=== PATIENT | male | born 1950 | race Caucasian/White ===

== ENCOUNTER 2019-07-14 13:00 | Outpatient (RCR) | payer MEDICARE, SELFPAY ==
--- NOTE | 2019-06-18 12:54 | HP.OTEVAL ---
Patient's Visit Information ANYA ST is a 69 year old M, referred to Occupational Therapy by Jarret Hinds MD, with a diagnosis of left MF trigger finger release. Date of Evaluation: 05/28/19 Occupational Therapist: Larissa Rivero, JOSE LUIS/Dilcia, CHT - Subjective Subjective: This 68 year old male was seen for OT left TF release Apr.16. pt struggled with left MF triggering for about a year. pt states he continues to struggle with limited ROM and pain. Pt would like to return to PLOF. 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 Pt will demo an increase in lateral and tripod pinch by 2# to increase pts independent with opening baggies, containers at PLOF by D/C. Goal:: Pt will demo the ability to form a composite fist to hold and receive 10 coins without dropping coins/ and coin manipulation/money mtg. tasks and ind. With manipulating fasteners for dressing by D/C. Pt will demo the ability to form a composite fist to return to performing BADLs and IADLS at PLOF by d/c. Goal:: Pt will report pain no greater than 1/10 with use of affected hand with BADLs and IADLs by d/c. Goal:: Pt will demo understanding of scar mtg. by end of 2nd session to increase tissue extensibility to limit scar adhesions and allow full tendons function by d/c. - Rehabilitation General Assessment: pt demo with limted ROM and pain around incision following a trigger finger release. this is limiting pts ind. with ADLs and IADLS. pt demo difficulty with functional fist for ADLS. pt would benefit from skilled OT services 1-2 x week for 4 weeks to return pt to PLOF. Today pt ed. on tendon glide, scar mtg, desensitization. pt given handout on HEP and agree to POC. Rehabilitation Potential: Good - Anticipated Interventions Anticipated Interventions: A/AAROM/PROM, Strengthening, Edema Control, Scar Care, Triggerpoint Release, Desensitization, Modalities, Orthoses, Joint Protection/Energy Conservation - Visit Plan Frequency: 2x /Week Duration: 4 Weeks TEXT: Thank you for the opportunity to evaluate your patient. For Medicare and Medicare HMO plans, please review the plan of care and approve it. It will need to be FAXED BACK to us at [phone] for Medicare purposes. Please let me know if there are questions or concerns regarding this plan of care. Physician Signature: Date:
--- NOTE | 2019-11-06 16:54 | HP.OT.NRP ---
ANYA ST was seen in my office for initial evaluation on 05/28/19. The following Plan of Care was established for this patient: Initial Frequency: 2x /Week Initial Duration: 4 Weeks Plan: pt return in 2 weeks Anticipated Interventions: A/AAROM/PROM, Strengthening, Edema Control, Scar Care, Triggerpoint Release, Desensitization, Modalities, Orthoses, Joint Protection/Energy Conservation This patient was last seen in our office 07/14/19. Pertinent comments regarding their Occupational therapy will appear below: pt seen for 6 OT session and continued to struggle with trigger finger. pt was advised to return to for further eval. pt to cont. with HEP to limit triggering. pt has not returned or scheduled further apts and is d/c at this time. At this point I will be discontinuing this patient from occupational therapy. I would be happy to see this patient again in the future if found appropriate by the physician. Thank you! Larissa Rivero, OTR/L, CHT
== END 2019-07-14 19:00 | disposition home or self-care (01) ==
LOC: OT 13:00
PROVIDERS: Family Provider Preventive Medicine Occupational Medicine; PCP Preventive Medicine Occupational Medicine; Referring Provider Orthopaedic Surgery; Visit Provider Orthopaedic Surgery
DX: M65.332 Trigger finger, left middle finger (principal); M79.645 Pain in left finger(s); M25.642 Stiffness of left hand, not elsewhere classified
CPT/HCPCS: 97035; 97110; 97140; 97166; 97530; 97760

== ENCOUNTER 2019-07-26 15:11 | Emergency (ER) | payer MEDICARE, SELFPAY ==
[2019-07-26 15:12] VITALS: BP 113/71; PULSE 59; RESP 17; TEMP 36.9; O2SAT 97; BMI 32.4
--- NOTE | 2019-07-26 15:32 | EKG12_ITS ---
Test Reason : CP Blood Pressure : / mmHG Vent. Rate : 058 BPM Atrial Rate : 058 BPM P-R Int : 176 ms QRS Dur : 114 ms QT Int : 432 ms P-R-T Axes : 063 -52 -35 degrees QTc Int : 424 ms Sinus bradycardia Left anterior fascicular block Nonspecific ST and T wave abnormality Abnormal ECG Confirmed by BEATRICE BRICEÑO ([id number]), editorial specialist GARLAND DE OLIVEIRA ([id number]) on 07/31/2019 9:20:08 AM Referred By: Confirmed By:BEATRICE BRICEÑO
--- NOTE | 2019-07-26 15:35 | RAD_ITS ---
STUDY: X-RAY CHEST REASON FOR EXAM: Male, 69 years old. chest pain. hx of afib TECHNIQUE: AP COMPARISON: None. FINDINGS: EKG leads project over the chest. The lungs are clear and expanded. There is no demonstrated pleural abnormality. There is mild cardiac enlargement. Normal mediastinum and ector. Normal visualized pulmonary arteries. There is atherosclerotic tortuosity of the aortic arch and descending thoracic aorta. Normal visualized thoracic spine. Fusion hardware of the proximal left humerus partially visualized. There is no demonstrated abnormality of the visualized soft tissue structures of the upper abdomen. RAD/Chest 1 View (Portable) IMPRESSION: 1. Nonacute portable x-ray examination of the chest. Electronically Signed: Francisco Javier Vickers MD (Bro[place]) at 15:48 EDT , Service support ,
--- NOTE | 2019-07-26 15:38 | NURSING ---
NO OLD EKGS
--- NOTE | 2019-07-26 15:40 | ED.VISSUMM ---
- ER Visit Summary Date of Service: 07/26/19 Chief Complaint: Chest pain History of Present Illness: The patient is a 69 M presenting with chest pain. This started approximately 2 hours prior to arrival. He has had 2 intermittent episodes of left-sided chest pain. He states the first episode lasted about 30 minutes and then resolved. He was unsure if he wanted to come to the hospital and then had another episode of chest pain. He denies shortness of breath, nausea, vomiting, diaphoresis. He has a history of hypertension, hypercholesteremia, A. fib on Coumadin. He is not a smoker. Physical Examination: Vitals are stable. Patient is afebrile. Alert no acute distress. HEENT exam is unremarkable. Neck is supple. Lungs are clear and equal bilaterally. Heart is regular rate and rhythm. Abdomen is soft nontender nondistended. Extremities are unremarkable. Skin is warm and dry. No focal neurologic deficit. Remainder of exam is unremarkable. Emergency Department Course and Treatment: Patient was given aspirin on arrival. EKG is sinus bradycardia rate of 58. Chest x-ray shows no acute process. CBC, chemistries unremarkable other than BUN 23, creatinine 1.47. INR 1.9. Troponin is negative. Patient believes he may have had a stress test within the last 6 to 9 months. I am unable to find these records in [facility]. He is unsure where this test was performed. I advised admission for further cardiac work-up and stress testing. Patient declines admission. He declines delta troponin. He will follow-up with his doctor. He is advised the risks of leaving against medical advice and understands these risks and will return if he has worsening symptoms. He signed out AGAINST MEDICAL ADVICE. Disposition: AGAINST MEDICAL ADVICE Impression: Chest pain This note was generated with [employer] dictation software. It may contain incorrect words, spelling, and punctuation that were not noted in review of the chart prior to signing ED Disposition - Plan for ED Patient: Instructions: CHEST PAIN, Uncertain Cause Referrals: Dre Coles DO [Primary Care Provider] -
[2019-07-26 15:46] LABS: Absolute Lymphocyte Count 1.29 X10^3/uL (0.83-4.51); Absolute Neutrophil Count 4.2 X10^3/uL (2.0-7.7); Basophil# 0.02 X10^3/uL; Basophil% 0.3 % (0-1); Eosinophil# 0.07 X10^3/uL; Eosinophils% 1.1 % (0-5); Hematocrit 39.9 % (40-54); Hemoglobin 13.6 g/dL (13.0-16.5); Lymphocyte # 1.29 X10^3/ul (4.0); Lymphocyte % 20.9 % (19-41); Mean Corp Hgb Conc 34.1 g/dL (32-36); Mean Corpuscular Hgb 33.7 pg (27.0-32.0); Monocyte# 0.57 X10^3/uL; Monocyte% 9.2 % (0-10); NRBC Flagged by Analyzer 0 % (0-5); Neutrophil # 4.18 X10^3/uL (2.7-7.7); Neutrophil % 67.9 % (47-70); Platelet Count 201 K/mm3 (150-450); RBC Distribution Width CV 13.1 % (11.6-14.6); RBC Distribution Width SD 46.6 fl (35.1-43.9); Red Blood Count 4.03 M/mm3 (4.6-6.2); White Blood Count 6.2 K/mm3 (4.4-11.0)
[2019-07-26 15:52] VITALS: BP 101/80; PULSE 59; RESP 14; O2SAT 96
[2019-07-26] MEDS: Aspirin 81 MG TAB.CHEW 324 MG PO (15:52)
[2019-07-26 16:05] LABS: Anion Gap 6 (5-15); BUN 23 mg/dL (7-18); BUN/Creat Ratio 15.6 RATIO (10-20); Calcium,Total 8.9 mg/dL (8.5-10.1); Chloride 103 mmol/L (98-107); Creatinine, Serum 1.47 mg/dL (0.70-1.30); EST Glomerular Filtration Rate 50 mL/min (>60); Est Glom Filt Rate - Afr Amer 61 mL/min (>60); Estimated Creatinine Clearance 51.32 ml/min; Glucose 113 mg/dL (74-106); Potassium 3.9 mmol/L (3.5-5.1); Sodium Level 140 mmol/L (136-145)
[2019-07-26 16:12] LABS: International Normalized Ratio 1.9; Prothrombin Time (Protime)PT. 21.6 SECONDS (11.7-14.9)
--- NOTE | 2019-07-26 17:05 | ED.DEP ---
ED Disposition - Plan for ED Patient: Instructions: CHEST PAIN, Uncertain Cause Referrals: Dre Coles DO [Primary Care Provider] -
[2019-07-26 17:24] VITALS: BP 115/72; PULSE 53; RESP 15; O2SAT 95
== END 2019-07-26 17:25 | disposition left against medical advice (07) ==
LOC: ED 16:21
PROVIDERS: Emergency Provider Emergency Medicine; PCP Preventive Medicine Occupational Medicine
DX: R07.9 Chest pain, unspecified (principal); Z79.01 Long term (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 anticoagulants; I10 Essential (primary) hypertension; I48.91 Unspecified atrial fibrillation
CPT/HCPCS: 71045; 80048; 84484; 85025; 85610; 93005; 99283; A4216

== ENCOUNTER → 2019-09-19 09:40 | Outpatient (CLI) | payer MEDICARE, SELFPAY ==
--- NOTE | 2019-09-19 09:46 | NM_ITS ---
CLINICAL: 69-year-old male with reported history of carcinoma of the prostate. WHOLE BODY 99m Tc MDP RADIONUCLIDE BONE SCINTIGRAPHY COMPARISON: None available FINDINGS: Following the intravenous administration of 26.4 mCi of 99m Tc MDP, whole body bone images reveal: 1. Increased radiopharmaceutical concentration is identified in the right posterior lateral 11th rib. 2. Enhanced tracer concentration is observed in the mid cervical spine posteriorly on the left, fourth-fifth lumbar vertebra posteriorly on the left and right, right posterior sacrum, acromioclavicular compartment of the right shoulder, sternoclavicular compartment of the left shoulder, the right knee, the right hip involving the superior acetabulum. 3. The remaining skeletal structures are scintigraphically unremarkable with normal-appearing renal images and urinary bladder activity identified. Prominent uptake is noted at the sternomanubrial synchondrosis most consistent with a normal variant. NM/Bone Scan Whole Body IMPRESSION: 1. The increase in radiopharmaceutical concentration identified in the right posterior lateral 11th rib is most consistent with trauma-fracture. Plain film radiography correlation may be of benefit in this setting of known prostate carcinoma. 2. Degenerative arthritis appears expressed in the cervical and lumbar spine, sacrum, bilateral shoulders, the right knee and right hip. 3. There is no definitive typical scintigraphic evidence of diffuse axial skeletal metastatic disease on the current examination. Electronically Signed: Mark Miller DO at 9:17 EDT Tel , Service support ,
== END ==
LOC: CT 09:41 → NM 09:45
PROVIDERS: PCP Preventive Medicine Occupational Medicine; Referring Provider Urology; Visit Provider Urology
DX: C61 Malignant neoplasm of prostate (principal)
CPT/HCPCS: 78306

== ENCOUNTER → 2019-09-23 06:48 | Outpatient (CLI) | payer MEDICARE, SELFPAY ==
--- NOTE | 2019-09-23 06:57 | CT_ITS ---
STUDY: CT ABDOMEN AND PELVIS WITH CONTRAST REASON FOR EXAM: Male, 69 years old. MALIGNANT NEOPLASM FOLLOW UP -- FREQUENT URINATION,RADIATION COLITIS -- HX- PROSTATE CA W/ RADIATION, BLADDER CA W/ SURG -- SURG-APPY,HERNIA,HEMORRHOIDS,STOMACH D/T REFLUX, BLADDER TUMOR REMOVED RADIATION DOSAGE (If Supplied By Facility): CTDIvol = ( 19.77 ) mGy, DLP = ( 1234.43 ) mGycm TECHNIQUE: Transaxial images were obtained from the dome of the diaphragm to the symphysis pubis with oral contrast. Oral and amp;amp;amp; IV Readi-CAT and amp;amp;amp; 100mL Isovue-300 was administered. Sagittal and coronal images were reconstructed. Individualized dose optimization techniques were used for this CT. COMPARISON: Comparison is made with prior examination of January 28, 2007. FINDINGS: Minimal increased linear markings at the left lung base suggestive of linear scarring. This is unchanged. The visualized portions of the heart are within normal limits. There is decreased attenuation of the liver consistent with steatosis. Mild hepatomegaly. Normal gallbladder and extrahepatic biliary system. Normal spleen. Normal pancreas. Normal bilateral adrenal glands. Normal right kidney. 1 cm cyst in the posterior aspect of the left kidney. There is a small hiatal hernia. Normal small intestine. There are scattered colonic diverticula consistent with diverticulosis. The patient is status post appendectomy. There is scattered atherosclerotic calcification of the abdominal aorta, without a demonstrated aneurysm. Normal inferior vena cava. Normal retroperitoneum. Normal urinary bladder. The patient is status post prostatectomy. Normal abdominal wall. Disc space narrowing and degeneration at the L4-L5 and L5-S1 levels. Straightening of the normal lumbar lordosis. CT/Abdomen/Pelvis WITH Contrast IMPRESSION: Mild hepatomegaly with fatty infiltration of the liver. Status post prostatectomy. Electronically Signed: Nishant Medina, at 8:20 EDT , Service support ,
[2019-09-23 10:31] LABS: CREATININE FINGERSTICK 0.8 mg/dL (0.70-1.30); EGFR FINGERSTICK > 60.0000 mL/min (>60)
== END ==
PROVIDERS: PCP Preventive Medicine Occupational Medicine; Referring Provider Urology; Visit Provider Urology
DX: C61 Malignant neoplasm of prostate (principal)
CPT/HCPCS: 74177; Q9967

== ENCOUNTER → 2020-03-30 13:24 | Outpatient (CLI) | payer MEDICARE, SELFPAY | PROVIDERS: PCP Preventive Medicine Occupational Medicine; Referring Provider Urology; Visit Provider Urology | DX: C61 Malignant neoplasm of prostate (principal) | CPT/HCPCS: 36415; 84153 ==

== ENCOUNTER → 2020-04-20 14:02 | Outpatient (CLI) | payer MEDICARE, SELFPAY ==
--- NOTE | 2020-04-20 14:00 | PET_ITS ---
EXAMINATION: 18F Fluciclovine PET/CT CLINICAL HISTORY: A 69-year-old male with reported history of carcinoma of the prostate presenting for restaging examination. COMPARISON EXAMINATION: CT of the abdomen and pelvis report dated 09/23/2019, whole body bone scintigraphy report dated 09/19/2019 PROCEDURE: The patient received an intravenous bolus injection of 11.02 mCi of Axumin (fluciclovine F-18) via the right hand, on the imaging table with the patient in the supine position followed by an intravenous normal saline flush. The patient in the supine position with arms above the head, CT scan for attenuation correction was performed immediately following the bolus injection and left up for 1-2 minutes. The PET scan acquisition was begun within 3-5 minutes following injection from mid thigh to the base of the skull. The total scan time was registered between 20-30 minutes. Axumin (fluciclovine F-18) injection is indicated for positron emission tomography PET imaging in men with suspected prostate cancer recurrence based on elevation of the serum prostatic surface antigen (PSA) levels following prior treatment intervention. HEIGHT: 72 inches. WEIGHT: 230 lbs. REFERENCE SUVs: LIVER BLOOD POOL SUV: 9.3 BLOOD POOL: 1.4 BONE MARROW: 2.6 FINDINGS: Head/Neck: There is no evidence of abnormal increased metabolism in the pharyngeal mucosal space, parapharyngeal space, bilateral-lateral and anterior neck, hypopharynx and distribution of the laryngeal structures. There is uniform distribution of the radiopharmaceutical concentration defined in the visualized cerebellar hemispheres and cerebral cortical structures.? CHEST: There is no quantitative scintigraphic evidence of abnormal increased metabolism within the context of the bilateral hemithorax pulmonary parenchyma, right and left hemithoracic pleural interface, mediastinal structures and thoracic perihilum. No definitive abnormal increased metabolism is noted on review of three axis reconstructions on meticulous inspection of the chest. Normal mediastinal and cardiac blood pool distribution of the radiopharmaceutical is defined. Pertinent chest CT findings are as follows. Coronary arterial calcification is observed. Calcification is noted in the thoracic aorta. The maximal axial diameter of the ascending thoracic aorta is 44.9-mm. Bilateral axillary soft tissue densities with fatty hilus demonstrate no evidence of increased tracer uptake. Scattered mediastinal soft tissue is non-fluciclovine avid. There are no parenchymal densities-nodules defined in the right and left hemithorax with discernible increased FDG concentration. Abdomen/Pelvis: Subtle increased radiopharmaceutical concentration appears evident in the lower midline perineum generating a calculated maximal standard uptake value of 2.8 essentially equivalent to bone marrow and less than liver reference. Normal physiologic distribution of the radiopharmaceutical is apparent in the hepatic and splenic parenchyma, pancreas, pancreatic head-tail, both renal units, bladder and visualized intestinal tract. Pertinent abdomen and pelvis CT findings are as follows. There is atherosclerotic calcification defined in the abdominal aorta without evidence of dilatation-aneurysm formation. Pelvic arterial calcification is observed. The prostate gland appears surgically absent. Right and left inguinal soft tissue densities with fatty hilus are ametabolic. Skeletal: Degenerative changes are noted in the cervical, thoracic and lumbar spine. PET/PET/CT Tumor Base -Thigh Init IMPRESSION: 1. NEGATIVE EXAMINATION. There is no definitive quantitative scintigraphic evidence of 18-F Fluciclovine avid viable neoplasm. 2. Enhanced tracer uptake observed in the lower midline perineum likely represents pooling of labeled urine radiopharmaceutical within the proximal urethra. Electronic Signature Mark Miller D.O. Electronically Signed: Mark Miller DO at 9:58 EST Tel , Service support ,
== END ==
PROVIDERS: PCP Preventive Medicine Occupational Medicine; Referring Provider Urology; Visit Provider Urology
DX: C61 Malignant neoplasm of prostate (principal)
CPT/HCPCS: 78815; A9552; A9588

== ENCOUNTER → 2020-07-29 14:57 | Outpatient (CLI) | payer MEDICARE, SELFPAY | PROVIDERS: PCP Preventive Medicine Occupational Medicine; Visit Provider Urology | DX: C61 Malignant neoplasm of prostate (principal) | CPT/HCPCS: 36415; 84153 ==

== ENCOUNTER → 2020-09-22 14:41 | Outpatient (CLI) | payer MEDICARE, SELFPAY | PROVIDERS: PCP Preventive Medicine Occupational Medicine; Referring Provider Urology; Visit Provider Urology | DX: C61 Malignant neoplasm of prostate (principal) | CPT/HCPCS: 36415; 84153 ==

== ENCOUNTER → 2020-11-10 11:51 | Outpatient (CLI) | payer MEDICARE, SELFPAY ==
[2020-11-10 13:05] LABS: PSA,Total- Diagnostic 3.02 ng/mL (0.0-4.0)
== END ==
PROVIDERS: PCP Preventive Medicine Occupational Medicine; Referring Provider Urology; Visit Provider Urology
DX: C61 Malignant neoplasm of prostate (principal)
CPT/HCPCS: 36415; 84153

== ENCOUNTER → 2021-02-16 12:43 | Outpatient (CLI) | payer MEDICARE, SELFPAY ==
[2021-02-16 14:04] LABS: PSA,Total- Diagnostic 0.53 ng/mL (0.0-4.0)
== END ==
PROVIDERS: PCP Preventive Medicine Occupational Medicine; Referring Provider Urology; Visit Provider Urology
DX: C61 Malignant neoplasm of prostate (principal)
CPT/HCPCS: 36415; 84153

== ENCOUNTER 2021-07-04 13:32 | Outpatient (CLI) | payer MEDICARE, SELFPAY ==
[2021-07-04 15:29] LABS: PSA,Total- Diagnostic 0.11 ng/mL (0.0-4.0)
== END 2021-07-04 23:59 | disposition home or self-care (01) ==
LOC: LAB 13:34
PROVIDERS: PCP Preventive Medicine Occupational Medicine; Visit Provider Urology
DX: C61 Malignant neoplasm of prostate (principal)
CPT/HCPCS: 36415; 84153

== ENCOUNTER 2021-07-25 13:10 | Outpatient (CLI) | payer MEDICARE, SELFPAY ==
[2021-07-25 13:21] LABS: INR Fingerstick 1.8
== END 2021-07-25 23:59 | disposition home or self-care (01) ==
LOC: LAB 13:13
PROVIDERS: PCP Preventive Medicine Occupational Medicine; Visit Provider Student in an Organized Health Care Education/Training Program
DX: Z01.812 Encounter for preprocedural laboratory examination (principal)
CPT/HCPCS: 36416; 85610

== ENCOUNTER → 2022-01-04 | Outpatient (CLI) | payer MEDICARE, SELFPAY | END | disposition home or self-care (01) | LOC: LAB 10:52 | PROVIDERS: PCP Preventive Medicine Occupational Medicine; Visit Provider Urology | DX: C61 Malignant neoplasm of prostate (principal) | CPT/HCPCS: 36415; 84153 ==

== ENCOUNTER → 2022-04-24 | Outpatient (CLI) | payer MEDICARE, SELFPAY | END | disposition home or self-care (01) | LOC: LAB 11:48 | PROVIDERS: PCP Preventive Medicine Occupational Medicine; Referring Provider Urology; Visit Provider Urology | DX: C61 Malignant neoplasm of prostate (principal) | CPT/HCPCS: 36415; 84153 ==

== ENCOUNTER → 2022-08-21 | Outpatient (CLI) | payer MEDICARE, SELFPAY ==
[2022-08-21 16:24] LABS: PSA,Total- Diagnostic 0.59 ng/mL (0.0-4.0)
== END | disposition home or self-care (01) ==
PROVIDERS: PCP Preventive Medicine Occupational Medicine; Referring Provider Urology; Visit Provider Urology
DX: C61 Malignant neoplasm of prostate (principal)
CPT/HCPCS: 36415; 84153

== ENCOUNTER → 2022-12-27 | Outpatient (CLI) | payer MEDICARE, SELFPAY ==
[2022-12-27 14:58] LABS: PSA,Total- Diagnostic 0.16 ng/mL (0.0-4.0)
== END | disposition home or self-care (01) ==
LOC: LABSPEC 13:46 → LAB 12-28 08:44
PROVIDERS: PCP Preventive Medicine Occupational Medicine; Referring Provider Urology; Visit Provider Urology
DX: C61 Malignant neoplasm of prostate (principal)
CPT/HCPCS: 36415; 84153

== ENCOUNTER → 2023-05-24 | Outpatient (CLI) | payer MEDICARE, SELFPAY ==
--- OUTSIDE RECORDS SUMMARY | 2023-05-24 09:49 | XMS RPT_ITS | CCD ---
Author Name Unknown Address [address] [place] [address] Organization [facility] Care Team Providers Care Permanent Waver Name Role Phone EZEKIEL COLES DO Primary Care Physician [phone] Ezekiel Coles Primary Care Provider [phone] Tobi FRAIRE MD, Daesung Unavailable Ezekiel Coles Primary Care Provider [phone] Ezekiel Coles DO Primary Care Provider [phone] Tobi FRAIRE MD, Daesung Unavailable EZEKIEL COLES DO Primary Care Physician [phone] JENNIFER FRAIRE, DEYSI Attending Unavailable EZEKIEL COLES Primary Care Unavailable LEIA DEMARCO, DR. PECK Attending Unavail able EZEKIEL COLES Primary Care Unavailable EZEKIEL COLES Attending Unavailable EZEKIEL COLES Primary Care Unavailable LEIA DEMARCO, DR. PECK Attending Unavail able EZEKIEL COLES Primary Care Unavailable JOSELYN REYES Referring Unavailable EZEKIEL COLES Primary Care Unavailable JOSELYN REYES Referring Unavailable EZEKIEL COLES Primary Care Unavailable EZEKIEL COLES Primary Care Unavailable CARLOS PILLAI Attending Unavailab ROSA [place] Referring Unavailable EZEKIEL COLES Primary Care Unavailable VANIA EZEKIEL Shalonda Primary Care Unavailable VANIA EZEKIEL Shalonda Primary Care Unavailable ROSA CONNER Referring Unavailable JOSELYN REYES Attending Unavailable EZEKIEL COLES Primary Care Unavailable CARLOS PILLAI Referring Unavailab le Allergies Allergy Classification Reported Allergen(s) Allergy Type Date of Onset Reaction(s) Facility (5 sources) traMADol; Translations: [tramadol] Drug Allergy Unknown [facility] (2 sources) Acetaminophen; Translations: [acetaminophen] Drug Allergy [facility] (20 sources) Acetaminophen / oxyCODONE; Translations: [acetaminophen-oxy codone] Drug Allergy 09-15-2016 Itching [facility] (2 sources) Acetaminophen / oxyCODONE; Translations: [OXYCODONE-ACETAMI NOPHEN] Drug Allergy 09-15-2016 [facility] Other [place] [facility] Medications Current Medications Medication Drug Class(es) Dates Sig (Normalized) Sig (Original) acetaminophen 325 mg oral capsule (5 sources) Start: 08-20-2018 Tylenol 325 mg oral capsule Dose : 650 mg =, Oral, q4h, PRN Pain, scale 1-6, 0 Refill(s) Start Date: 08/20/18 Status: Ordered dofetilide 0.125 mg oral capsule (20 sources) Antiarrhythmic Start: 04-24-2022 dofetilide 125 mcg oral capsule Dose : 125 mcg = 1 cap(s), Oral, BID, # 180 cap(s), 0 Refill(s) Start Date: 04/24/22 Status: Ordered Completed/Discontinued Medications Medication Drug Class(es) Dates Sig (Normalized) Sig (Original) amoxicillin 875 mg / clavulanate 125 mg oral tablet (3 sources) Penicillin-class Antibacterial Start: 01-13-2022 End: 01-20-2022 take 1 tablet by mouth every twelve hours amoxicillin-clav ulanic acid (AUGMENTIN) 875-125 mg per tablet Take 1 tablet by mouth every 12 hours for 13 doses. 13 tablet 0 01/13/2022 01/20/2022 Problems Active Problems Problem Classification Problem Date Documented Da te Episodic/Chronic Alcohol-related disorders (20 sources) Alcohol abuse; Translations: [Alcohol abuse, uncomplicated] Onset: 09-15-2016 01-08-2022 Chronic Anxiety disorders (5 sources) Chronic anxiety 12-03-2019 Chronic Aortic; peripheral; and visceral artery aneurysms (5 sources) Aneurysm of ascending aorta 10-15-2019 Chronic Past or Other Problems Problem Classification Problem Date Documented Date Episodic/Chronic Deficiency and other anemia (19 sources) Anemia; Translations: [Anemia, unspecified] Onset: 01-07-2022 01-08-2022 Episodic Diabetes mellitus without complication (19 sources) Steroid-induced hyperglycemia; Translations: [Hyperglycemia, unspecified] Onset: 01-09-2022 01-09-2022 Episodic Nonspecific chest pain (20 sources) Chest pain; Translations: [Chest pain, unspecified] Onset: 01-08-2022 06-29-2021 Episodic Other aftercare (19 sources) Anticoagulant effect; Translations: [group home (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 anticoagulants] Onset: 01-07-2022 01-08-2022 Episodic Other aftercare (8 sources) Patient encounter status; Translations: [Encounter for therapeutic drug level monitoring] Onset: 06-01-2022 06-01-2022 Episodic Other aftercare (1 source) group home (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 anticoagulants; Translations: [group home (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 anticoagulants] Onset: 06-01-2022 Episodic Other aftercare (1 source) Encounter for therapeutic drug level monitoring; Translations: [Encounter for monitoring dofetilide therapy] Onset: 06-01-2022 Episodic Other aftercare (1 source) Other senior living (current) drug therapy; Translations: [Encounter for monitoring dofetilide therapy] Onset: 06-01-2022 Episodic Other screening for suspected conditions (not mental disorders or infectious disease) (20 sources) Other specified abnormal findings of blood chemistry; Translations: [Other abnormal blood chemistry] Onset: 01-07-2022 01-08-2022 Episodic Other upper respiratory infections (19 sources) Acute frontal sinusitis; Translations: [Acute frontal sinusitis, unspecified] Onset: 01-13-2022 01-13-2022 Episodic Results Test Name Value Interpretation Reference Range Facil ity Vital Signs Date Time Vital Sign Value Performing Clinician Yoanna colorado 03-09-2023 13:39-0400 Body height 182.9 cm Joselyn Reyes APRN.CNP Work Phone: [facility] 03-09-2023 13:39-0400 Body weight 117 kg Joselyn Reyes APRN.CNP Work Phone: [facility] 03-09-2023 13:39-0400 Diastolic blood pressure 76 mm[Hg] Joselyn Reyes APRN.CNP Work Phone: [facility] 03-09-2023 13:39-0400 Heart rate 114 /min Joselyn Reyes CHILD CARE CENTER ASSISTANT DIRECTOR.GEOLOGICAL SCOUT Work Phone: [facility] 03-09-2023 13:39-0400 SaO2% (BldA) [Mass fraction] 96 % Joselyn Reyes CHILD CARE CENTER ASSISTANT DIRECTOR.GEOLOGICAL SCOUT Work Phone: [facility] 03-09-2023 13:39-0400 Systolic blood pressure 126 mm[Hg] Joselyn Reyes CHILD CARE CENTER ASSISTANT DIRECTOR.GEOLOGICAL SCOUT Work Phone: [facility] 02-15-2022 09:36-0400 Body weight 117.07 kg Rosa Conner CHILD CARE CENTER ASSISTANT DIRECTOR.GEOLOGICAL SCOUT Work Phone: [facility] 02-15-2022 09:36-0400 Diastolic blood pressure 60 mm[Hg] Rosa Conner CHILD CARE CENTER ASSISTANT DIRECTOR.GEOLOGICAL SCOUT Work Phone: [facility] 02-15-2022 09:36-0400 Heart rate 53 /min Rosa Conner CHILD CARE CENTER ASSISTANT DIRECTOR.GEOLOGICAL SCOUT Work Phone: [facility] 02-15-2022 09:36-0400 Systolic blood pressure 126 mm[Hg] Rosa Conner CHILD CARE CENTER ASSISTANT DIRECTOR.GEOLOGICAL SCOUT Work Phone: [facility] 01-20-2022 08:12-0400 Body height 182.9 cm Rosa Conner CHILD CARE CENTER ASSISTANT DIRECTOR.GEOLOGICAL SCOUT Work Phone: [facility] 01-20-2022 08:12-0400 Body weight 111.58 kg Rosa Conner CHILD CARE CENTER ASSISTANT DIRECTOR.GEOLOGICAL SCOUT Work Phone: [facility] 01-20-2022 08:12-0400 Diastolic blood pressure 64 mm[Hg] Rosa Conner CHILD CARE CENTER ASSISTANT DIRECTOR.GEOLOGICAL SCOUT Work Phone: [facility] 01-20-2022 08:12-0400 Heart rate 116 /min Rosa Conner CHILD CARE CENTER ASSISTANT DIRECTOR.GEOLOGICAL SCOUT Work Phone: [facility] 01-20-2022 08:12-0400 SaO2% (BldA) [Mass fraction] 97 % Rosa Conner APRN.GEOLOGICAL SCOUT Work Phone: [facility] 01-20-2022 08:12-0400 Systolic blood pressure 112 mm[Hg] Rosa Conner APRN.CNP Work Phone: [facility] Encounters Encounter Date Encounter Type Care Provider Facility Start: 04-11-2023 End: 04-11-2023 ambulatory [facility] Facility:[facility] Start: 04-11-2023 End: 04-11-2023 Nursing evaluation of patient and report Nurse Card Fátima Work Phone: Cardiology Procedures Date Procedure Procedure Detail Performing Clinician Start: 03-20-2023 Lipid 1996 panel - S lauren or Plasma Nurse Work Phone: Start: 03-09-2023 Ecg routine ecg w/le ast 12 lds i&r only [facility] Provider Start: 05-14-2021 Finger structure (ki dy structure) [facility] Start: 01-06-2019 CT of chest DEYSI GOULD MD Plan of Treatment Date Care Activity Detail Author Start: 03-20-2028 Lipid 1996 panel - S lauren or Plasma Lipid Screening [facility] Start: 04-10-2027 Urine microalbumin profile [facility] Start: 03-13-2025 DIABETES SCREEN DIABETES SCREEN [facility] Start: 03-13-2025 Diabetes Screening Diabetes Screenin g [facility] Start: 02-11-2025 DIABETES SCREEN DIABETES SCREEN [facility] Start: 01-09-2025 DIABETES SCREEN DIABETES SCREEN [facility] Start: 03-09-2024 BP Controlled (<130/80) BP Con trolled (<130/80) [facility] Start: 06-01-2023 BP CONTROLLED (<130/80) BP CON TROLLED (<130/80) [facility] Start: 03-23-2023 End: 06-22-2023 25-hydroxyvitamin D3 [Mass/volume] in Serum or Plasma VITAMIN D 25 HYDROXY Lab Routine Other fatigue Vitamin D deficiency Expected: 03/23/2023, Expires: 06/22/2023 [facility] Work Phone: Immunizations Immunization Date Immunization Notes Care Provider Fa [facility] 02-02-2022 influenza virus vaccine, unspecified formulation Joselyn Reyes APRN.GEOLOGICAL SCOUT Work Phone: [facility] 01-14-2021 influenza virus vaccine, unspecified formulation EZEKIEL MENDEZY DO [facility] 01-14-2021 SARS-CoV-2 (COVID-19 ) mRNA-1273 vaccine EZEKIEL LATHAMSAY DO [facility] 11-01-2020 SARS-CoV-2 (COVID-19 ) mRNA-1273 vaccine DEYSI RODRIGUEZ MD [facility] Payers Date Payer Category Payer Medicare UHC AARP MEDICAR E [facility] HMO [id number] 2021-Present [phone] [address] [address] [place] [address] HMO [id number] 2021 Private Health Insurance [id number] 1950 Unknown [id number] 1950 Unknown [id number] 1950 Unknown [id number] 1950 Unknown [id number] Social History Date Type Detail Facility Start: 11-22-2018 End: 01-20-2022 Never smoked tobacco (finding) [facility] Clinical Notes 09-18-2016 to 04-11-2023 Socorro Cam MA - 04/11/2023 4:05 PM ESTTelephone Encounter - Binu Steward RN - 03/15/2023 4:06 PM EDTTelephone Encounter - Binu Steward RN - 03/15/2023 1:52 PM EDTPatient Instructions Note Date & Type Note Facility 04-11-2023 Nurse Note EKG performed per protocol on [facility] EKG was handed to Edgar Ochoa RN on April 11, 2023 at 3:50 PM Socorro Cam MA documented in this encounter [facility] 03-15-2023 Miscellaneous Notes Called PT left VM lab orders are in the computer Pended new orders Please advise Patient called in stating he needs new lab orders because he was scheduled for labs but had to leave without getting them done because he was waiting too long. Please place new lab orders if appropriate and inform patient. Patient called in stating he needs new lab orders because he was scheduled for labs but had to leave without getting them done because he was waiting too long. Please place new lab orders if appropriate and inform patient. documented in this encounter [facility] 03-09-2023 Note HNO ID: [id number] Author: Joselyn Reyes APRN.[place] Service: ? Author Type: Nurse Practitioner Type: Progress Notes Filed: 03/09/2023 2:32 PM Note Text: [facility] Department of Cardiovascular Medicine SECTION OF CLINICAL CARDIOLOGY OUTPATIENT VISIT DATE March 09, 2023 OUTPATIENT VISIT TYPE ESTABLISHED PRIMARY CARE PHYSICIAN: Ezekiel Coles [address] [place] [id number] REFERRING PHYSICIAN: Rosa Conner [address] [address] CHIEF COMPLAINT: Follow Up ( I been feeling my heart beat a few times. /Weight gain) HISTORY OF PRESENT ILLNESS: Mr. Kamara is a 72 year old male with PMH PAF on tikosyn/coumadin, CKD3, prostate cancer, HTN, HLD, COPD, BRENDA/CPAP, obesity, who presents today for a cardiovascular medicine follow-up visit for Dr Pillai last seen 05/2022. No energy. Wakes as tired as he goes to sleep. This is for many years, Cpap is not saying that there is an issue. Rarely feels his heart beating fast. Not as bad as when he got admitted over a year ago. No leg swelling. Has some LOPEZ. Has been slowly gaining weight over last 2 years. No rapid weight increase. Can feel his heart slightly today. But usually cannot feel when he is in atrial fibrillation. He denies chest pain, dizziness, lightheadedness, lower extremity edema, PND, orthopnea, presyncope, syncope, or claudication symptoms Subjective PAST MEDICAL HISTORY Diagnosis Date A-fib (HCC) Emphysema Emphysema lung (HCC) Gallstones [address] GERD (gastroesophageal reflux disease) HTN (hypertension) Hyperlipemia Hyperlipidemia Hypertension Prostate cancer (HCC) PAST SURGICAL HISTORY Procedure Laterality Date APPENDECTOMY HX HEMORRHOIDECTOMY PAST SURGICAL HISTORY OF L shoulder surgery PAST SURGICAL HISTORY OF eye/nose surgery PAST SURGICAL HISTORY OF Naomie fundoplication (for reflux) TONSILLECTOMY HX VASECTOMY UNI/BI SPX W/POSTOP SEMEN EXAMS Social History Tobacco Use Smoking status: Never Smokeless tobacco: Never Substance Use Topics Alcohol use: Yes Alcohol/week: 25.0 standard drinks of alcohol Types: 15 Standard drinks or equivalent, 10 Glasses of Wine (5oz) per week Comment: wineOnce in a while Drug use: No FAMILY HISTORY Problem Relation Age of Onset Diabetes Father Prostate Cancer Brother ALLERGIES: ALLERGIES Allergen Reactions Percocet [Oxycodone* Itching Pt took 2 doses close together (per patient) MEDICATIONS: dofetilide (TIKOSYN) 125 mcg capsule Take 1 capsule by mouth twice daily. LORAZEPAM ORAL Take 0.5 mg by mouth as needed. metoprolol succinate ER (TOPROL XL) 25 mg 24 hr tablet Take 0.5 tablets by mouth once daily. apixaban (ELIQUIS) 5 mg tab(s) Take 1 tablet by mouth twice daily. losartan (COZAAR) 25 mg tablet Take 1 tablet by mouth once daily. loperamide (IMODIUM) 2 mg cap(s) Take 2 mg by mouth four times daily as needed for diarrhea. finasteride (PROSCAR) 5 mg tablet once daily. tamsulosin (FLOMAX) 0.4 mg ORAL Cp24 Take 1 capsule by mouth daily at bedtime. thiamine (VITAMIN B1) 100 mg tablet 1 tablet by ORAL/FEEDING TUBE route once daily. benzonatate (TESSALON PERLES) 100 mg capsule Take 2 capsules by mouth three times daily as needed for cough for up to 20 doses. (Patient not taking: Reported on 03/09/2023) REVIEW OF SYSTEMS: CARD: See HPI GENERAL: Negative for: Weight loss or gain, Fever and/or Chills HEENT: Negative for: Headache, Impaired Vision, Glasses, Hearing Impairment, Ringing in Ears, Nosebleeds, Bleeding Gums NECK: Negative for: Swelling, Pain, Stiffness RESPIRATORY: Negative for: Cough, Blood in Sputum, Shortness of breath, Wheezing, Apnea GASTROINTESTINAL: Negative for: Nausea, Vomiting, Diarrhea, Blood in stool, or Dark black stools MUSCULOSKELETAL: Negative for: Muscle or joint pain, Stiffness , Joint swelling NEUROLOGIC: Negative for: focal numbness/weakness, headaches, visual changes, ataxia, speech/language loss HEMATOLOGICAL/LYMPHATIC: Negative for: Easy bruising , Easy bleeding ENDOCRINE: now notes gynecomastia and hot flashes from prostate cancer treatment. Objective PHYSICAL EXAMINATION: BP 126/76 Pulse 114 Ht 182.9 cm (6') Wt 117 kg (257 lb 15 oz) SpO2 96% BMI 34.98 kg/m? General: Well appearing, in no acute distress. Skin: No clubbing, no cyanosis. Eyes: Extra ocular movements intact Neck: No jugular venous distention, no carotid bruits, carotids have a normal upstroke. Lungs: Clear to auscultation bilaterally, no wheezing or rhonchi. Heart: irregular rhythm, no murmur. No peripheral edema . Grade 2/4 distal pulses bilaterally. Abdomen: Soft Neuro: Oriented to person, place and time, alert, cooperative, gait coordinated. CARDIOVASCULAR MEDICINE TESTING: Electrocardiogram: atrial fib 114 bpm QTc 474 Last EKG Result (more content not included)... [facility] 03-09-2023 Instructions Joselyn Reyes APRN.CNP - 03/09/2023 2:14 PM EDT PLAN AND RECOMMENDATIONS: Take another 1/2 tablet of metoprolol tonight Take a whole tablet of metoprolol tonight. Get your ;lab work done; make sure you are fasting. Echocardiogram Follow up in 2-3 weeks for EKG CONTACT INFORMATION: Joselyn Reyes APRN.CNP Cardiology Nurse Practitioner Section of Regional Cardiology [facility] Dept of Cardiovascular Medicine [facility] [address] [place] [address] Office Office documented in this encounter [facility] 03-09-2023 History of Presen t illness Narrative Images from the original note were not included. [facility] Department of Cardiovascular Medicine SECTION OF CLINICAL CARDIOLOGY OUTPATIENT VISIT DATE March 09, 2023 OUTPATIENT VISIT TYPE ESTABLISHED PRIMARY CARE PHYSICIAN: Ezekiel Coles [address] [place] [address] REFERRING PHYSICIAN: Rosa Conner [address] [place] [id number] CHIEF COMPLAINT: Follow Up ( I been feeling my heart beat a few times. /Weight gain) HISTORY OF PRESENT ILLNESS: Mr. Kamara is a 72 year old male with PMH PAF on tikosyn/coumadin, CKD3, prostate cancer, HTN, HLD, COPD, BRENDA/CPAP, obesity, who presents today for a cardiovascular medicine follow-up visit for Dr Pillai last seen 05/2022. No energy. Wakes as tired as he goes to sleep. This is for many years, Cpap is not saying that there is an issue. Rarely feels his heart beating fast. Not as bad as when he got admitted over a year ago. No leg swelling. Has some LOPEZ. Has been slowly gaining weight over last 2 years. No rapid weight increase. Can feel his heart slightly today. But usually cannot feel when he is in atrial fibrillation. He denies chest pain, dizziness, lightheadedness, lower extremity edema, PND, orthopnea, presyncope, syncope, or claudication symptoms Subjective PAST MEDICAL HISTORY Diagnosis Date A-fib (HCC) Emphysema Emphysema lung (HCC) Gallstones [address] GERD (gastroesophageal reflux disease) HTN (hypertension) Hyperlipemia Hyperlipidemia Hypertension Prostate cancer (HCC) PAST SURGICAL HISTORY Procedure Laterality Date APPENDECTOMY HX HEMORRHOIDECTOMY PAST SURGICAL HISTORY OF L shoulder surgery PAST SURGICAL HISTORY OF eye/nose surgery PAST SURGICAL HISTORY OF Naomie fundoplication (for reflux) TONSILLECTOMY HX VASECTOMY UNI/BI SPX W/POSTOP SEMEN EXAMS Social History Tobacco Use Smoking status: Never Smokeless tobacco: Never Substance Use Topics Alcohol use: Yes Alcohol/week: 25.0 standard drinks of alcohol Types: 15 Standard drinks or equivalent, 10 Glasses of Wine (5oz) per week Comment: wineOnce in a while Drug use: No FAMILY HISTORY Problem Relation Age of Onset Diabetes Father Prostate Cancer Brother ALLERGIES: ALLERGIES Allergen Reactions Percocet [Oxycodone* Itching Pt took 2 doses close together (per patient) MEDICATIONS: dofetilide (TIKOSYN) 125 mcg capsule Take 1 capsule by mouth twice daily. LORAZEPAM ORAL Take 0.5 mg by mouth as needed. metoprolol succinate ER (TOPROL XL) 25 mg 24 hr tablet Take 0.5 tablets by mouth once daily. apixaban (ELIQUIS) 5 mg tab(s) Take 1 tablet by mouth twice daily. losartan (COZAAR) 25 mg tablet Take 1 tablet by mouth once daily. loperamide (IMODIUM) 2 mg cap(s) Take 2 mg by mouth four times daily as needed for diarrhea. finasteride (PROSCAR) 5 mg tablet once daily. tamsulosin (FLOMAX) 0.4 mg ORAL Cp24 Take 1 capsule by mouth daily at bedtime. thiamine (VITAMIN B1) 100 mg tablet 1 tablet by ORAL/FEEDING TUBE route once daily. benzonatate (TESSALON PERLES) 100 mg capsule Take 2 capsules by mouth three times daily as needed for cough for up to 20 doses. (Patient not taking: Reported on 03/09/2023) REVIEW OF SYSTEMS: CARD: See HPI GENERAL: Negative for: Weight loss or gain, Fever and/or Chills HEENT: Negative for: Headache, Impaired Vision, Glasses, Hearing Impairment, Ringing in Ears, Nosebleeds, Bleeding Gums NECK: Negative for: Swelling, Pain, Stiffness RESPIRATORY: Negative for: Cough, Blood in Sputum, Shortness of breath, Wheezing, Apnea GASTROINTESTINAL: Negative for: Nausea, Vomiting, Diarrhea, Blood in stool, or Dark black stools MUSCULOSKELETAL: Negative for: Muscle or joint pain, Stiffness , Joint swelling NEUROLOGIC: Negative for: focal numbness/weakness, headaches, visual changes, ataxia, speech/language loss HEMATOLOGICAL/LYMPHATIC: Negative for: Easy bruising , Easy bleeding ENDOCRINE: now notes gynecomastia and hot flashes from prostate cancer treatment. Objective PHYSICAL EXAMINATION: BP 126/76 Pulse 114 Ht 182.9 cm (6') Wt 117 kg (257 lb 15 oz) SpO2 96% BMI 34.98 kg/m General: Well appearing, in no acute distress. Skin: No clubbing, no cyanosis. Eyes: Extra ocular movements intact Neck: No jugular venous distention, no carotid bruits, carotids have a normal upstroke. Lungs: Clear to auscultation bilaterally, no wheezing or rhonchi. Heart: irregular rhythm, no murmur. No peripheral edema . Grade 2/4 distal pulses bilaterally. Abdomen: Soft Neuro: Oriented to person, place and time, alert, cooperative, gait coordinated. CARDIOVASCULAR MEDICINE TESTING: Electrocardiogram: atrial fib 114 bpm QTc 474 Last EKG Result Conclusion ECG COMPLETE Collected: 03/09/2023 1:54 PM (Preliminary result) Impression: ATRIAL FIBRILLATION WITH RAPID VENTRICULAR RESPONSE LEFT AXIS DEVIATION MINIMAL VOLTAGE CRITERIA FOR LVH, MAY BE NORMAL VARIANT ( [place] product ) NONSPECIFIC ST ABNORMALITY ABNORMAL ECG I have personally reviewed the Electrocardiogram. I personally interviewed, confirmed and edited the above information if obtained by others. Conclusion: (E55.9) Vitamin D deficiency (primary encounter diagnosis) Comment: fatigue for unclear etiology Plan: VITAMIN D 25 HYDROXY (E61.1) Iron deficiency Comment: will check labs Plan: IRON + TIBC, FERRITIN BLD (R53.83) Other fatigue Comment: unclear etiology Plan: MAGNESIUM BLD, NT PRO BNP, TSH BLD, T4 FREE/FREE THYROX, T3 FREE BLD, REVERSE T3 (E53.8) Vitamin B12 deficiency Comment: fatigue Plan: VITAMIN B12 BLOOD (E78.2) Mixed hyperlipidemia Comment: will recheck Plan: LIPID PANEL BASIC (R06.02) SOB (shortness of breath) Comment: does not appear to be Plan: ECHO (I10) Primary hypertension Comment: stable Plan: continue same meds (I48.0) Paroxysmal atrial fibrillation (HCC) Comment: back in atrial fibrillation today Plan: increase metoprolol today and tomorrow Check heart rate. Nurse visit for ekg. PLAN AND RECOMMENDATIONS: Take another 1/2 tablet of metoprolol tonight Take a whole tablet of metoprolol tonight. Get your ;lab work done; make sure you are fasting. Echocardiogram Follow up in 2-3 weeks for EKG CONTACT INFORMATION: Joselyn Reyes APRN.CNP Cardiology Nurse Practitioner [facility] Card[facility] Dept of Cardiovascular Medicine [facility] [address] [place] [address] Office Office documented in this encounter [facility] 12-15-2022 Miscellaneous Notes Patient requesting to have med filled at this pharmacy to see if it would be cheaper. Pharmacy verified in [facility] Patient has been identified by name and date of : Yes Patient aware RX will be sent to pharmacy. No need to notify patient. Patient phones for refill(s): Requested Prescriptions Pending Prescriptions Disp Refills dofetilide (TIKOSYN) 125 mcg capsule 180 capsule 3 Sig: Take 1 capsule by mouth twice daily. Date of last office visit : 06/01/2022 Date of next office visit : 01/18/2023 Last 2 Encounter Wt Readings: Date: Wt: 06/01/2022 113.4 kg (250 lb) 02/15/2022 117.1 kg (258 lb 1.6 oz) Not applicable Please advise. Yarely Bell documented in this encounter [facility] 12-14-2022 Miscellaneous Notes Received a fax from [facility] requesting refills on the following medication. Please file if appropriate. Last appt 06/06/22 documented in this encounter [facility] [facility] 06-23-2022 Miscellaneous Notes Called PT left VM about BMS letter PT did not meet the 3% OOP cost. Asked PT to go to his pharmacy to get a OOP cost for his prescriptions if he has 3% drop off documentation to the office we will Fax to BMS. documented in this encounter [facility] 06-07-2022 Miscellaneous Notes Please call and schedule a 3 month nurse visit for EKG (Tikosyn) Thanks! Roz Patient called to request Tikosyn refill; was due for EKG 05/18/22, performed at [facility] 06/01/22. documented in this encounter [facility] 06-06-2022 Miscellaneous Notes Faxed 2022 Merlin application with supporting documentation. documented in this encounter [facility] 06-01-2022 Note HNO ID: [id number] Author: Carlos Pillai, DO Service: ? Author Type: Physician Type: Progress Notes Filed: 06/02/2022 1:37 PM Note Text: [facility] SECTION OF [facility]IONAL CARDIOLOGY [facility] OUTPATIENT VISIT DATE June 01, 2022 PRIMARY CARE PHYSICIAN: Ezekiel Coles [address] [place] [address] HISTORY OF PRESENT ILLNESS: Mr. Kamara is a 71 year old male. The patient is 5 seconds paroxysmal atrial fibrillation maintained in sinus rhythm with dofetilide as well as long-term oral anticoagulation with Eliquis. Additional history includes hypertension, mitral regurgitation and obstructive sleep apnea compliant to CPAP mask. He denies chest discomfort, dyspnea, orthopnea, paroxysmal nocturnal dyspnea, palpitations, near-syncope, syncope, GI/U bleeding or melena. PLAN AND RECOMMENDATIONS: The patient remained stable without symptoms of angina, cardiac compensations or paroxysms of his atrial fibrillation. Heart rate and blood pressure appear favorable. We have therefore made no additions or changes. Dietary and lifestyle medication was reemphasized to facilitate risk factor reduction. His EKG appears stable. We will look forward to reevaluating him in 6 months time. He will need his echocardiogram updated after that next visit. Vitals: BP 120/68 (BP Site: Right Arm, BP Position: Sitting) Pulse 60 Wt 113.4 kg (250 lb) SpO2 95% BMI 33.91 kg/m? Physical Exam Vitals reviewed. Constitutional: General: He is not in acute distress. Appearance: Normal appearance. He is well-developed. He is not diaphoretic. HENT: Head: Normocephalic and atraumatic. Right Ear: External ear normal. Left Ear: External ear normal. Nose: Nose normal. Eyes: General: No scleral icterus. Right eye: No discharge. Left eye: No discharge. Pupils: Pupils are equal, round, and reactive to light. Neck: Thyroid: No thyromegaly. Vascular: No carotid bruit or JVD. Cardiovascular: Rate and Rhythm: Normal rate and regular rhythm. Heart sounds: No murmur heard. No friction rub. No gallop. Pulmonary: Effort: Pulmonary effort is normal. No respiratory distress. Breath sounds: Normal breath sounds. No wheezing or rales. Abdominal: General: Bowel sounds are normal. Palpations: Abdomen is soft. Musculoskeletal: General: Normal range of motion. Cervical back: Neck supple. Skin: General: Skin is warm and dry. Capillary Refill: Capillary refill takes less than 2 seconds. Coloration: Skin is not pale. Neurological: Mental Status: He is alert and oriented to person, place, and time. Cranial Nerves: No cranial nerve deficit. Psychiatric: Mood and Affect: Mood normal. Mood is not anxious or depressed. Behavior: Behavior normal. Thought Content: Thought content normal. Judgment: Judgment normal. Review of Systems Constitutional: Negative for activity change, appetite change, fatigue and unexpected weight change. HENT: Negative for ear pain and trouble swallowing. Eyes: Negative for pain and visual disturbance. Respiratory: Negative for chest tightness and shortness of breath. Cardiovascular: Negative for chest pain, palpitations and leg swelling. Gastrointestinal: Negative for abdominal pain and blood in stool. Endocrine: Negative for cold intolerance and heat intolerance. Genitourinary: Negative for dysuria, hematuria and scrotal swelling. Musculoskeletal: Negative for arthralgias and myalgias. Skin: Negative for pallor and rash. Allergic/Immunologic: Negative for immunocompromised state. Neurological: Negative for dizziness, syncope and light-headedness. Hematological: Negative for adenopathy. Does not bruise/bleed easily. Psychiatric/Behavioral: Negative for sleep disturbance. The patient is not nervous/anxious. PAST MEDICAL HISTORY Diagnosis Date A-fib (HCC) Emphysema Emphysema lung (HCC) Gallstones [address] GERD (gastroesophageal reflux disease) HTN (hypertension) Hyperlipemia Hyperlipidemia Hypertension Prostate cancer (HCC) PAST SURGICAL HISTORY Procedure Laterality Date APPENDECTOMY HX HEMORRHOIDECTOMY PAST SURGICAL HISTORY OF L shoulder surgery PAST SURGICAL HISTORY OF eye/nose surgery PAST SURGICAL HISTORY OF Naomie fundoplication (for reflux) TONSILLECTOMY HX VASECTOMY UNI/BI SPX W/POSTOP SEMEN EXAMS Social History Tobacco Use Smoking status: Never Smokeless tobacco: Never Substance Use Topics Alcohol use: Yes Alcohol/week: 25.0 standard drinks Types: 15 Standard drinks or equivalent, 10 Glasses of Wine (5oz) per week Comment: wineOnce in a while Drug use: No FAMILY HISTORY Problem Relation Age of Onset Diabetes Father Prostate Cancer Brother ALLERGIES Allergen Reactions Percocet [Oxycodone* Itching Pt took 2 doses close together (per patient) CURRENT MEDICATIONS: dofetilide (TIKOSYN) 125 mcg (more content not included)... [facility] 05-09-2022 Miscellaneous Notes Will be due for EKG 05/18 and will be completed at office visit with Dr. Pillai on 06/01 Patient's request for medication is as follows: Requested Prescriptions Pending Prescriptions Disp Refills dofetilide (TIKOSYN) 125 mcg capsule [Pharmacy Med Name: DOFETILIDE 125MCG CAP] 180 capsule 0 Sig: TAKE 1 CAPSULE BY MOUTH TWICE DAILY Prescription(s) as above. Please process accordingly. Elayne Edwards APRN.[place] documented in this encounter [facility] 03-15-2022 Miscellaneous Notes Called PT labs from yesterday show that his RF is elevated but overall improved from previous. BNP is improved from previous as well. He was on HCTZ in the past but this was stopped due to possible interaction with Tikosyn. Please ask the patient to decrease his Na intake, elevate his legs and start wearing compression socks. If he continues to have LE edema we can consider a trial of low dose lasix. Thanks ~ JJ PT states he understands Please let the patient know that labs from yesterday show that his RF is elevated but overall improved from previous. BNP is improved from previous as well. He was on HCTZ in the past but this was stopped due to possible interaction with Tikosyn. Please ask the patient to decrease his Na intake, elevate his legs and start wearing compression socks. If he continues to have LE edema we can consider a trial of low dose lasix. Thanks ~ JJ documented in this encounter [facility] 02-15-2022 Instructions Rosa Conner APRN.CNP - 02/15/2022 10:39 AM EDT You remain in normal rhythm today - your EKG looks good Continue all the same medication Including Eliquis Stay off HCTZ - if you start to have higher blood pressure readings we will consider a different blood pressure medication. Please call the pharmacy and ask them to send me your out of pocket cost for the year. Fax this to [phone] [facility] [place] Follow up with Dr. Chayo in 3 months. See a lung doctor for you history of COPD documented in this encounter [facility] 02-15-2022 History of Presen t illness Narrative Images from the original note were not included. [facility] V[facility] Department of Cardiovascular Medicine SECTION OF CLINICAL CARDIOLOGY OUTPATIENT VISIT DATE February 15, 2022 OUTPATIENT VISIT TYPE ESTABLISHED All documentation from previous visit of January 20, 2022 was copied and pasted, documentation has been reviewed and edited as necessary for today's visit. Patient Name: Anya Kamara : 1950 PRIMARY CARE PHYSICIAN: Ezekiel Coles DO REFERRING PHYSICIAN: Rosa Conner [address] [phone] CHIEF COMPLAINT: Patient presents with: Follow Up Interval Hx: Mr. Kamara comes for a hospital follow up visit for atrial fibrillation. He was admitted to [facility] 01/07-01/13 for Tikosyn loading COPIED FROM DISCHARGE SUMMARY: HOSPITAL COURSE: This is a 71 year old male who presents with \with past medical history of hypertension, hyperlipidemia, atrial fibrillation on Eliquis, COPD, obstructive sleep apnea, radiation colitis, prostate cancer who is a direct admission to the nursing floor for Tikosyn loading. Patient has longstanding history of atrial fibrillation and has been more symptomatic lately. He reports frequent chest discomfort/chest pain along with palpitations on and off. Denies any history of syncope. Upon admission he is hemodynamically stable heart rate in 80s, afebrile, labs are pending at the time of admission, EKG shows atrial flutter with variable block and QTC 469 He was seen in consult by cardiology. Tikosyn was initiated and EKG was monitored. His toprol was decreased to 12.5mg daily. HCTZ was stopped. He tolerated the medication well and was discharged in stable condition. He will follow up with cardiology in one week as already scheduled. Since discharge, the patient feels better than he did when he went to the hospital Checking BP and HR at home. HR in the 60-70's at home on BP cuff and SpO2 sensor. Occasional palpitations No syncope or near syncope No chest pain On RA still Has chronic cough Tolerating Eliquis no GI/ bleeding but notes that he bleeds easier if he cuts himself - he has been taking fish oil with Eliquis Able to do ADL's in the home. REVIEW OF SYSTEMS: CONSTITUTIONAL: No fevers, chills, nightsweats, unintended weight loss HEENT: Denies frequent or severe heaches, nasal congestion/sinus symptoms, problematic allergy problems. EYES: No diplopia or blurry vision. CARDIOVASCULAR: No chest pain, +dyspnea, + occasional palpitations, orthopnea, PND, ankle edema. PULM: No dyspnea, + chronic cough. GI: No dysphagia/odynophagia, problematic reflux, constipation, diarrhea, changes in stool habits, hematochezia, melena. : No new urinary complaints, including dysuria, gross hematuria or pyuria. NEURO: No new balance problems, peripheral weakness/paresthesias or numbness of concern. MUSC-SKEL: No new joint pain, swelling, or erythema. PSY: No concerns regarding depression, anxiety or panic. INTEGUMENTARY: No new skin changes (rash, new or changing mole, new growth) ALLERGIES: Percocet [Oxycodone-Acetaminophen] PAST MEDICAL HISTORY: PAST MEDICAL HISTORY Diagnosis Date A-fib (HCC) Emphysema Emphysema lung (HCC) Gallstones [address] GERD (gastroesophageal reflux disease) HTN (hypertension) Hyperlipemia Hyperlipidemia Hypertension Prostate cancer (HCC) SOCIAL HISTORY: Social History Tobacco Use Smoking status: Never Smokeless tobacco: Never Substance Use Topics Alcohol use: Yes Alcohol/week: 25.0 standard drinks Types: 10 Glasses of Wine (5oz) per week Drug use: No FAMILY HISTORY: FAMILY HISTORY Problem Relation Age of Onset Diabetes Father Prostate Cancer Brother I have confirmed and edited as necessary, the PFSH and ROS obtained by others. Rosa Conner, CHILD CARE CENTER ASSISTANT DIRECTOR.GEOLOGICAL SCOUT CURRENT MEDICATIONS: Current Outpatient Medications Medication Sig dofetilide (TIKOSYN) 125 mcg capsule Take 1 capsule by mouth twice daily. dofetilide (TIKOSYN) 125 mcg capsule Take 1 capsule by mouth twice daily. metoprolol succinate ER (TOPROL XL) 25 mg 24 hr tablet Take 0.5 tablets by mouth once daily. apixaban (ELIQUIS) 5 mg tab(s) Take 1 tablet by mouth twice daily. losartan (COZAAR) 25 mg tablet Take 1 tablet by mouth once daily. thiamine (VITAMIN B1) 100 mg tablet 1 tablet by ORAL/FEEDING TUBE route once daily. benzonatate (TESSALON PERLES) 100 mg capsule Take 2 capsules by mouth three times daily as needed for cough for up to 20 doses. triamcinolone acetonide (NASACORT AQ) 55 mcg nasal inhaler Use 2 Sprays in the nose once daily. loperamide (IMODIUM) 2 mg cap(s) Take 2 mg by mouth four times daily as needed for diarrhea. finasteride (PROSCAR) 5 mg tablet once daily. tamsulosin (FLOMAX) 0.4 mg ORAL Cp24 Take 1 capsule by mouth daily at bedtime. No current facility-administered medications for this visit. Last Labs: CMP: Glucose (mg/dL) Date Value 02/11/2022 94 06/16/2017 103 Potassium (mmol/L) Date Value 02/11/2022 4.0 06/16/2017 4.0 Sodium (mmol/L) Date Value 02/11/2022 140 06/16/2017 141 Chloride (mmol/L) Date Value 02/11/2022 104 06/16/2017 102 CO2 (mmol/L) Date Value 02/11/2022 26 06/16/2017 27 Creatinine (mg/dL) Date Value 02/11/2022 1.36 06/16/2017 1.16 BUN (mg/dL) Date Value 02/11/2022 26 06/16/2017 10 Anion Gap (mmol/L) Date Value 02/11/2022 10 06/16/2017 12 Calcium (mg/dL) Date Value 06/16/2017 9.3 Calcium, Total (mg/dL) Date Value 02/11/2022 9.1 Protein, Total (g/dL) Date Value 01/09/2022 6.0 06/16/2017 7.3 Albumin (g/dL) Date Value 01/13/2022 3.9 06/16/2017 4.6 Bilirubin, Total (mg/dL) Date Value 01/09/2022 0.4 06/16/2017 0.5 Alkaline Phosphatase (U/L) Date Value 01/09/2022 69 06/16/2017 70 AST (U/L) Date Value 01/09/2022 41 06/16/2017 28 ALT (U/L) Date Value 01/09/2022 74 06/16/2017 23 HGB: No results found for: HGB HCT: Hematocrit Date Value Ref Range Status 02/11/2022 35.7 (L) 39.0 - 51.0 % Final Ferritin: No results found for: FERRITIN TSAT%: No components found for: TSAT% CARDIAC STUDIES: EK01/07/2022 Diagnosis: NORMAL SINUS RHYTHM LEFT ANTERIOR FASCICULAR BLOCK NONSPECIFIC ST AND T WAVE ABNORMALITY ABNORMAL ECG Echocardiogram: 01/09/2022 CONCLUSIONS: - Exam indication: SOB - The left ventricle is small. Left ventricular systolic function is normal. EF = 54 5% (2D biplane) Left ventricular diastolic function was not evaluated due to AF. - The right ventricle is normal in size. Right ventricular systolic function is normal. - The visualized aorta is dilated with a maximal dimension of 4.2 cm. - There is moderate (2+) mitral valve regurgitation. - AV Sclerosis mild (1+) aortic regurgitation. - There is no patent foramen ovale as detected by Doppler. There is a petl-bk-btic variability in LV systolic function due to a-fib. - Exam was compared with the prior CC echocardiographic exam performed on 06/29/17. Mitral valve regurgitation has increased since prior echo. Stress Testin01/09/2022 CONCLUSIONS: 1. SPECT Perfusion Study: Normal. 2. There is no scintigraphic evidence for inducible ischemia. 3. No evidence of scarred myocardium. 4. Left ventricle is normal in size. The left ventricle systolic function is normal. 5. Right ventricle is normal in size. 6. This is a low risk scan. Gated Stress IR:3D LVEF % 53 EKG completed in the office today shows SB - ventricular rate 53 BPM, RBBB, QTc 418 I have personally reviewed the Electrocardiogram. PHYSICAL EXAMINATION: Vitals: BP 126/60 Pulse (!) 53 Wt 117.1 kg (258 lb 1.6 oz) BMI 35.00 kg/m General appearance: No acute distress, conversant Neurologic/Psychiatric: Alert and oriented to time, place and person; mood pleasant. Gait steady with no assistive device Neck: Trachea midline, full range of motion Heart: Rate irregularly irregular. S1, S2 present. No gallop. No Rub. No murmur. Lungs: Diminished at bases bilaterally. Normal work of breathing, speaking in full sentences without difficulty. Abdomen: Non-distended, non-tender, normal bowel sounds, no organomegaly noted Extremities: Nails no clubbing or cyanosis. Warm, peripheral pulses palpable, No BLE edema, No Changes of chronic venous insufficieny to BLE Skin: Warm and dry. No rash or ulcers IMPRESSION/PLAN: Some documentation from previous visit of 01/13/2022 was copied and pasted, documentation has been reviewed and edited as necessary for today's visit. 1.PAF - initial dx 2016 - histoically was on Warfarin and Toprol. Failed Sotolol therapy. - Underwent DCCV on 01/11/[address] Pillai - had significantly long sinus pause post procedure. - Seen in the office for follow up and was back in AF RVR - admitted to Tikosyn loading 02/08-02/11 -->discharged on Tikosyn 125 mcg BID and Toprol 12.5 mg daily - EKG today shows SB with ventricular rate of 53 BPM --> QTc 418 - continue Eliquis, Tikosyn and Toprol at current doses. 2.HTN - good control on losartan and metoprolol -Was on HCTZ in the past but this was recently stopped as it interferes with Tikosyn. 3.Mitral Regurgitation - echo on admission showed moderate (2+) MV regurgitation - monitor 4.History of ETOH abuse - abstinence 5. COPD - needs to establish with Pulm 6. BRENDA - compliant with CPAP - urged continued use I spent a total of 38 minutes on the date of the service which included preparing to see the patient, [id number] patient care, completing clinical documentation, performing a medically appropriate examination, counseling and educating the patient/family/caregiver, ordering medications, tests, or procedures, independently interpreting results (not separately reported), and communicating results to the patient/family/caregiver. Thank you very much for allowing me to assist in the care of Anya Kamara. Please do not hesitate to contact me if you have questions or concerns. CONTACT INFORMATION: Rosa Conner APRN.[place] Cardiology Nurse Practitioner [facility] Cardiology [facility] Dept of Cardiovascular Medicine [facility] Heart and Vascular [address] [place] [address] Office Office February 15, 2022 9:08 AM documented in this encounter [facility] 02-07-2022 Miscellaneous Notes Called pt and explained procedure. Pt will wait for phone call from bed management. Spoke to Dr. Hilary Pittman will be the admitting doc. Bed Management will call pt sometime tomorrow ONCE bed is ready. Left VM for pt informing above. Spoke to Rosa Conner CNP She will see which MD can accept pt and call us back. Patient calling to set up tykosin loading appointment Please call patient to discuss [phone] documented in this encounter [facility] 02-01-2022 History of Presen t illness Narrative Summary: EKG Patient arrived for 12 lead ECG with interpretation.Ecg has been interpreted by Rosa Conner NP. Patient to be scheduled for Tikosyn loading. documented in this encounter [facility] 01-27-2022 Miscellaneous Notes Called PT left VM about Patient called regarding his IR level which was 1.4. Asked if you would please call him regarding this and his medication. TY He is on Eliquis start date 01/23/22 was on coumadin D/C 01/13/22 Last INR was 1.9 Not sure if he started Eliquis? Patient called regarding his IR level which was 1.4. Asked if you would please call him regarding this and his medication. TY documented in this encounter [facility] 01-23-2022 Miscellaneous Notes Patient's request for medication is as follows: Requested Prescriptions Signed Prescriptions Disp Refills apixaban (ELIQUIS) 5 mg tab(s) 30 tablet 5 Sig: Take 1 tablet by mouth twice daily. Authorizing Provider: ROSA CONNER Prescription(s) as above. Please process accordingly. Rosa Conner APRN.GEOLOGICAL SCOUT documented in this encounter [facility] 01-20-2022 Miscellaneous Notes Spoke with patient; he did not feel INR was accurate, as his blood looked too thick during his test. Instructions given; patient stated he eats spinach salad just about every night. Will have to go out and fill his Eliquis prescription tomorrow. INR today 2.9 Please call patient and advise him to hold Warfarin today as directed. Have some vitamin K foods tonight (green leafy vegetables) Start Eliquis 1 tablet tomorrow night at bedtime. Then on Sunday start taking 1 tablet in the AM and 1 tablet in the PM. Thanks ~ JJ Summary: PT/INR Jasmyne from [facility] in [place] called to report results: PT 34.4 and INR is 2.9 Patient has been instructed to stop Warfarin and start Eliquis once INR is below 2. documented in this encounter [facility] 01-20-2022 Miscellaneous Notes Summary: ELIQUIS PAP Patient assistance program paperwork faxed to [facility]. documented in this encounter [facility] 01-20-2022 Instructions Rosa Conner APRN.GEOLOGICAL SCOUT - 01/20/2022 8:31 AM EDT You are in atrial fibrillation today ---> but at rest your heart rate is well controlled. Continue Toprol 25 mg daily ---> you were actually on a higher dose of this in the past but your heart rate on manual count today was 64. I want to stop Warfarin and Start a blood thinner called Eliquis. DO NOT start this until your INR is less than 2.0 Prescription for Eliquis sent to [facility] for the first 30 days for free. Bring the coupon I gave you with you to the [facility]. I will send a roasterman prescription to mail order. Please have INR checked today at 2 PM at your doctor's office. Do not take Coumadin tonight Please have the office call me with you INR number ---based on the results I will let you know when you can start the new medication. Direct Nurse line is [phone] - ok to leave a voicemail. We are going to plan to have you admitted for Tikosyn loading next week. We will call you once this is arranged. All other medications stay the same for now. I will review this with the doctors here in the office as well. documented in this encounter [facility] 01-20-2022 History of Presen t illness Narrative Images from the original note were not included. Heart and Vascular [facility] Department of Cardiovascular Medicine SECTION OF CLINICAL CARDIOLOGY OUTPATIENT VISIT DATE January 20, 2022 OUTPATIENT VISIT TYPE ESTABLISHED Patient Name: Anya Kamara : 1950 PRIMARY CARE PHYSICIAN: Ezekiel Coles DO REFERRING PHYSICIAN: Rosa Conner [address] [phone] CHIEF COMPLAINT: Patient presents with: CARD Hospital Follow Up: No new symptoms since getting out of the hospital. HR was 150 once. Interval Hx: Mr. Kamara comes for a hospital follow up visit for atrial fibrillation. He was admitted to [facility] 01/07-01/13 for COPD exacerbation and AF RVR. COPIED FROM DISCHARGE SUMMARY: SUMMARY OF WHAT HAPPENED WHILE I WAS IN THE HOSPITAL: Found to have a mixture of COPD plus atrial fibrillation. Difficult to control heart rate and had cardioversion back to normal rhythm. Concerned with prior cancer and irradiation having blood in the stool however it was felt best for you to follow-up as an outpatient for this as the bleeding was not severe and history that you had the radiation. Since discharge, the patient has continued to have SOB. Checking BP and HR at home.Highest HR at home was 150 on watch. Occasional dizziness - no falls No syncope or near syncope No chest pain or palpations Still has trouble breathing with rest and exertion - on RA at home and here in the office Has chronic cough No pulm follow up scheduled yet Has not had INR checked since discharge. On Warfarin Able to do ADL's in the home. REVIEW OF SYSTEMS: CONSTITUTIONAL: No fevers, chills, nightsweats, unintended weight loss, + fatigue HEENT: Denies frequent or severe heaches, nasal congestion/sinus symptoms, problematic allergy problems. EYES: No diplopia or blurry vision. CARDIOVASCULAR: No chest pain, +dyspnea, palpitations, orthopnea, PND, ankle edema. PULM: No dyspnea, unexplained cough. GI: No dysphagia/odynophagia, problematic reflux, constipation, diarrhea, changes in stool habits, hematochezia, melena. : No new urinary complaints, including dysuria, gross hematuria or pyuria. NEURO: No new balance problems, peripheral weakness/paresthesias or numbness of concern. MUSC-SKEL: No new joint pain, swelling, or erythema. PSY: No concerns regarding depression, anxiety or panic. INTEGUMENTARY: No new skin changes (rash, new or changing mole, new growth) ALLERGIES: Percocet [Oxycodone-Acetaminophen] PAST MEDICAL HISTORY: PAST MEDICAL HISTORY Diagnosis Date A-fib (HCC) Emphysema Emphysema lung (HCC) Gallstones [address] GERD (gastroesophageal reflux disease) HTN (hypertension) Hyperlipemia Hyperlipidemia Hypertension Prostate cancer (HCC) SOCIAL HISTORY: Social History Tobacco Use Smoking status: Never Smokeless tobacco: Never Substance Use Topics Alcohol use: Yes Alcohol/week: 25.0 standard drinks Types: 10 Glasses of Wine (5oz) per week Drug use: No FAMILY HISTORY: FAMILY HISTORY Problem Relation Age of Onset Diabetes Father Prostate Cancer Brother I have confirmed and edited as necessary, the PFSH and ROS obtained by others. Rosa Conner, CHILD CARE CENTER ASSISTANT DIRECTOR.GEOLOGICAL SCOUT CURRENT MEDICATIONS: Current Outpatient Medications Medication Sig amoxicillin-clavulanic acid (AUGMENTIN) 875-125 mg per tablet Take 1 tablet by mouth every 12 hours for 13 doses. losartan (COZAAR) 25 mg tablet Take 1 tablet by mouth once daily. metoprolol succinate ER (TOPROL XL) 25 mg 24 hr tablet Take 1 tablet by mouth once daily. thiamine (VITAMIN B1) 100 mg tablet 1 tablet by ORAL/FEEDING TUBE route once daily. benzonatate (TESSALON PERLES) 100 mg capsule Take 2 capsules by mouth three times daily as needed for cough for up to 20 doses. triamcinolone acetonide (NASACORT AQ) 55 mcg nasal inhaler Use 2 Sprays in the nose once daily. warfarin (COUMADIN) 7.5 mg tablet Take 1 tablet by mouth every Sunday,Sunday,,Sunday . warfarin (COUMADIN) 7.5 mg tablet Take 0.5 tablets by mouth every Sunday,Sunday,Sunday. hydroCHLOROthiazide (HYDRODIURIL, ESIDRIX) 25 mg tablet Take 1 tablet by mouth once daily. loperamide (IMODIUM) 2 mg cap(s) Take 2 mg by mouth four times daily as needed for diarrhea. finasteride (PROSCAR) 5 mg tablet once daily. tamsulosin (FLOMAX) 0.4 mg ORAL Cp24 Take 1 capsule by mouth daily at bedtime. No current facility-administered medications for this visit. Last Labs: CMP: Glucose (mg/dL) Date Value 01/13/2022 105 06/16/2017 103 Potassium (mmol/L) Date Value 01/13/2022 4.0 06/16/2017 4.0 Sodium (mmol/L) Date Value 01/13/2022 140 06/16/2017 141 Chloride (mmol/L) Date Value 01/13/2022 104 06/16/2017 102 CO2 (mmol/L) Date Value 01/13/2022 30 06/16/2017 27 Creatinine (mg/dL) Date Value 01/13/2022 1.51 06/16/2017 1.16 BUN (mg/dL) Date Value 01/13/2022 30 06/16/2017 10 Anion Gap (mmol/L) Date Value 01/13/2022 6 06/16/2017 12 Calcium (mg/dL) Date Value 06/16/2017 9.3 Calcium, Total (mg/dL) Date Value 01/13/2022 9.3 Protein, Total (g/dL) Date Value 01/09/2022 6.0 06/16/2017 7.3 Albumin (g/dL) Date Value 01/13/2022 3.9 06/16/2017 4.6 Bilirubin, Total (mg/dL) Date Value 01/09/2022 0.4 06/16/2017 0.5 Alkaline Phosphatase (U/L) Date Value 01/09/2022 69 06/16/2017 70 AST (U/L) Date Value 01/09/2022 41 06/16/2017 28 ALT (U/L) Date Value 01/09/2022 74 06/16/2017 23 HGB: No results found for: HGB HCT: Hematocrit Date Value Ref Range Status 01/13/2022 38.2 (L) 39.0 - 51.0 % Final Ferritin: No results found for: FERRITIN TSAT%: No components found for: TSAT% CARDIAC STUDIES: EK01/07/2022 Diagnosis: NORMAL SINUS RHYTHM LEFT ANTERIOR FASCICULAR BLOCK NONSPECIFIC ST AND T WAVE ABNORMALITY ABNORMAL ECG Echocardiogram: 01/09/2022 CONCLUSIONS: - Exam indication: SOB - The left ventricle is small. Left ventricular systolic function is normal. EF = 54 5% (2D biplane) Left ventricular diastolic function was not evaluated due to AF. - The right ventricle is normal in size. Right ventricular systolic function is normal. - The visualized aorta is dilated with a maximal dimension of 4.2 cm. - There is moderate (2+) mitral valve regurgitation. - AV Sclerosis mild (1+) aortic regurgitation. - There is no patent foramen ovale as detected by Doppler. There is a [id number] variability in LV systolic function due to a-fib. - Exam was compared with the prior echocardiographic exam performed on 06/29/17. Mitral valve regurgitation has increased since prior echo. Stress Testin01/09/2022 CONCLUSIONS: 1. SPECT Perfusion Study: Normal. 2. There is no scintigraphic evidence for inducible ischemia. 3. No evidence of scarred myocardium. 4. Left ventricle is normal in size. The left ventricle systolic function is normal. 5. Right ventricle is normal in size. 6. This is a low risk scan. Gated Stress IR:3D LVEF % 53 EKG completed in the office today shows Atrial Fibrillation with RVR, LAFB. Ventricular rate 116 BPM. I have personally reviewed the Electrocardiogram. PHYSICAL EXAMINATION: Vitals: BP 112/64 Pulse 116 Ht 182.9 cm (6') Wt 111.6 kg (246 lb) SpO2 97% BMI 33.36 kg/m General appearance: No acute distress, conversant Neurologic/Psychiatric: Alert and oriented to time, place and person; mood pleasant. Gait steady with no assistive device Neck: Trachea midline, full range of motion Heart: Rate irregularly irregular. S1, S2 present. No gallop. No Rub. No murmur. Lungs: Diminished at bases bilaterally. Normal work of breathing, speaking in full sentences without difficulty. Abdomen: Non-distended, non-tender, normal bowel sounds, no organomegaly noted Extremities: Nails no clubbing or cyanosis. Warm, peripheral pulses palpable, No BLE edema, No Changes of chronic venous insufficieny to BLE Skin: Warm and dry. No rash or ulcers IMPRESSION/PLAN: Some documentation from previous visit of 01/13/2022 was copied and pasted, documentation has been reviewed and edited as necessary for today's visit. 1.PAF - Previously followed with general card at [facility] - initial dx 2017 - Recently admitted to [facility] with recurrent AF RVR. - Was on Metoprolol at [facility] at time of admission - EKG on recent admission showed SR, LAFB - Had RVR during admission and Metoprolol was changed to Sotolol 80 mg BID - Underwent DCCV on 01/11/[address] Pillai - had significantly long sinus pause post procedure. - Antiarrhythmic medications were held. - Restarted on Toprol 25 mg daily prior to discharge - INR per PCP --> check INR today. Once INR is less than 2 we will start Eliquis. - EKG confirms recurrence of AF with periods of RVR noted. Continue Metoprolol 25 mg daily for now. Manual HR count was well controlled after EKG was completed. - we will arrange for admission next week for Tikosyn loading as previously discussed with the patient. 2.HTN - good control on losartan and HCTZ 3.Mitral Regurgitation - echo on admission showed moderate (2+) MV regurgitation - monitor 4.History of ETOH abuse - abstinence I spent a total of 38 minutes on the date of the service which included preparing to see the patient, [id number] patient care, completing clinical documentation, performing a medically appropriate examination, counseling and educating the patient/family/caregiver, ordering medications, tests, or procedures, independently interpreting results (not separately reported), and communicating results to the patient/family/caregiver. Thank you very much for allowing me to assist in the care of Anya Kamara. Please do not hesitate to contact me if you have questions or concerns. CONTACT INFORMATION: Rosa Conner APRN.CNP Cardiology Nurse Practitioner Section of Regional Cardiology [facility] Dept of Cardiovascular Medicine [facility] [place] [address] [place] [address] Office Office January 20, 2022 7:42 AM documented in this encounter [facility] documented as of this encounter (statuses as of 01/20/2022) [facility]2017 History of Past illness Narrative* Problem Noted Date Resolved Date Chronic headaches 09/18/2016 09/18/2016 documented as of this encounter (statuses as of 01/23/2022) [facility] History of Past illness Narrative* Problem Noted Date Resolved Date Chronic headaches 09/18/2016 09/18/2016 documented as of this encounter (statuses as of 01/24/2022) [facility] History of Past illness Narrative* Problem Noted Date Resolved Date Chronic headaches 09/18/2016 09/18/2016 documented as of this encounter (statuses as of 01/27/2022) [facility] History of Past illness Narrative* Problem Noted Date Resolved Date Chronic headaches 09/18/2016 09/18/2016 documented as of this encounter (statuses as of 02/01/2022) [facility] History of Past illness Narrative* Problem Noted Date Resolved Date Chronic headaches 09/18/2016 09/18/2016 documented as of this encounter (statuses as of 02/07/2022) [facility] History of Past illness Narrative* Problem Noted Date Resolved Date Chronic headaches 09/18/2016 09/18/2016 documented as of this encounter (statuses as of 02/16/2022) [facility] History of Past illness Narrative* Problem Noted Date Resolved Date Chronic headaches 09/18/2016 09/18/2016 documented as of this encounter (statuses as of 03/13/2022) [facility] History of Past illness Narrative* Problem Noted Date Resolved Date Chronic headaches 09/18/2016 09/18/2016 documented as of this encounter (statuses as of 03/15/2022) [facility] History of Past illness Narrative* Problem Noted Date Resolved Date Chronic headaches 09/18/2016 09/18/2016 documented as of this encounter (statuses as of 05/14/2022) [facility] History of Past illness Narrative* Problem Noted Date Resolved Date Chronic headaches 09/18/2016 09/18/2016 documented as of this encounter (statuses as of 06/06/2022) [facility] History of Past illness Narrative* Problem Noted Date Resolved Date Chronic headaches 09/18/2016 09/18/2016 documented as of this encounter (statuses as of 06/07/2022) [facility] History of Past illness Narrative* Problem Noted Date Resolved Date Chronic headaches 09/18/2016 09/18/2016 documented as of this encounter (statuses as of 06/23/2022) [facility] History of Past illness Narrative* Problem Noted Date Diagnosed Date Resolved Date Chronic headaches 09/18/2016 09/18/2016 documented as of this encounter (statuses as of 12/14/2022) [facility] History of Past illness Narrative* Problem Noted Date Diagnosed Date Resolved Date Chronic headaches 09/18/2016 09/18/2016 documented as of this encounter (statuses as of 12/15/2022) [facility] History of Past illness Narrative* Problem Noted Date Diagnosed Date Resolved Date Chronic headaches 09/18/2016 09/18/2016 documented as of this encounter (statuses as of 03/09/2023) [facility] History of Past illness Narrative* Problem Noted Date Diagnosed Date Resolved Date Chronic headaches 09/18/2016 09/18/2016 documented as of this encounter (statuses as of 03/16/2023) [facility] History of Past illness Narrative* Problem Noted Date Diagnosed Date Resolved Date Chronic headaches 09/18/2016 09/18/2016 documented as of this encounter (statuses as of 04/12/2023) [facility]ments Appointment Date:03/23/2021 01:30:00 PM Scheduled Provider: Location:[facility] Appointment Type:PC Nurse Protime Appointment Date:04/19/2021 02:45:00 PM Scheduled Provider:EZEKIEL COLES DO Location:[facility] Appointment Type:PC OV Follow Up [facility] Evaluation + Plan note Future Appointments Appointment Date:06/22/2021 01:30:00 PM Scheduled Provider: Location:[facility] Appointment Type:PC Nurse Protime Appointment Date:07/26/2021 02:00:00 PM Scheduled Provider:EZEKIEL COLES DO Location:[facility] Appointment Type:PC OV [facility] Evaluation + Plan note Future Appointments Appointment Date:07/05/2021 02:00:00 PM Scheduled Provider: Location:[facility] Appointment Type:PC Nurse Protime Appointment Date:07/12/2021 08:00:00 AM Scheduled Provider: Location:[facility] Appointment Type:CT Chest w/o Contrast Appointment Date:07/12/2021 09:00:00 AM Scheduled Provider: Location:[facility] Appointment Type:CV Procedure - AOH Echo Appointment Date:07/26/2021 02:00:00 PM Scheduled Provider:EZEKIEL COLES DO Location:[facility] Appointment Type:PC OV Future Scheduled Tests Laboratory* N-Terminal proBNP 12/29/21 * Lipid Profile 12/29/21 Radiology* CT Thorax w/o Contrast 07/12/21 [facility] Evaluation + Plan note Future Appointments Appointment Date:02/23/2022 03:00:00 PM Scheduled Provider:EZEKIEL COLES DO Location:[facility] Appointment Type:PC OV Follow Up Future Scheduled Tests Laboratory* Lipid Profile 12/29/21 * N-Terminal proBNP 12/29/21 Radiology* CT Thorax w/o Contrast 08/17/21 [facility] Evaluation + Plan note Future Appointments Appointment Date:07/24/2022 02:15:00 PM Scheduled Provider:EZEKIEL COLES DO Location:[facility] Appointment Type:PC OV Future Scheduled Tests Laboratory* Lipid Profile 12/29/21 * N-Terminal proBNP 12/29/21 Radiology* CT Thorax w/o Contrast 08/17/21 [facility] Evaluation note* Diagnosis Paroxysmal atrial fibrillation (HCC) Atrial fibrillation documented in this encounter [facility] note* Diagnosis Paroxysmal atrial fibrillation (HCC)- Primary Atrial fibrillation Primary hypertension Unspecified essential hypertension Mitral valve insufficiency, unspecified etiology Alcohol abuse Alcohol abuse, unspecified documented in this encounter [facility] note* Diagnosis Paroxysmal atrial fibrillation (HCC)- Primary Atrial fibrillation documented in this encounter [facility] note* Diagnosis Paroxysmal atrial fibrillation (HCC)- Primary Atrial fibrillation Primary hypertension Unspecified essential hypertension Mitral valve insufficiency, unspecified etiology Alcohol abuse Alcohol abuse, unspecified Chronic obstructive pulmonary disease, unspecified COPD type (HCC) BRENDA on CPAP Obstructive sleep apnea (adult) (pediatric) documented in this encounter [facility] note* Diagnosis Paroxysmal atrial fibrillation (HCC)- Primary Atrial fibrillation Lower extremity edema Edema documented in this encounter [facility] note* Diagnosis Paroxysmal atrial fibrillation (HCC)- Primary Atrial fibrillation documented in this encounter [facility] note* Diagnosis Paroxysmal atrial fibrillation (HCC) Atrial fibrillation documented in this encounter [facility] note* Diagnosis Paroxysmal atrial fibrillation (HCC) Atrial fibrillation documented in this encounter [facility] note* Diagnosis Vitamin D deficiency- Primary Unspecified vitamin D deficiency Iron deficiency Iron deficiency anemia, unspecified Other fatigue Vitamin B12 deficiency Other B-complex deficiencies Mixed hyperlipidemia SOB (shortness of breath) Shortness of breath Primary hypertension Unspecified essential hypertension Paroxysmal atrial fibrillation (HCC) Atrial fibrillation documented in this encounter [facility] note* Diagnosis Other fatigue- Primary Vitamin D deficiency Unspecified vitamin D deficiency 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 documented in this encounter [facility] note* Diagnosis 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- Primary [facility] Narrative No data available for this section [facility] Hospital Discharge instructions No data available for this section [facility] Progress note No data available for this section [facility] Reason for referral (narrative)* Outpatient Procedure (Routine) - Closed Specialty Diagnoses / Procedures Referred By Kitty t [facility] Diagnoses Paroxysmal atrial fibrillation (HCC) Procedures ECG COMPLETE ECG ROUTINE ECG W/LEAST 12 LDS W/I&R Rosa Conner APRN.GEOLOGICAL SCOUT [address] [address] Referral ID Status Reason Start Date Expiration Date V isits Requested Visits Authorized [id number] Closed Auto-Generate d Referral 01/20/2022 01/20/2023 1 1 [facility] for referral (narrative)* Outpatient Procedure (Routine) - Closed Specialty Diagnoses / Procedures Referred By Contac t Referred To Contact [facility] Diagnoses Paroxysmal atrial fibrillation (HCC) Procedures ECG COMPLETE ECG ROUTINE ECG W/LEAST 12 LDS W/I&R Rosa Conner APRN.CNP [address] [address] Referral ID Status Reason Start Date Expiration Date V isits Requested Visits Authorized [id number] Closed Auto-Generate d Referral 02/15/2022 02/15/2023 1 1 [facility] for referral (narrative)* Outpatient Procedure (Routine) - Authorized Specialty Diagnoses / Procedures Referred By Contac t Referred To Contact [facility] Diagnoses SOB (shortness of breath) Procedures ECHO ECHO TTHRC R-T 2D W/WOM-MODE COMPL SPEC&COLR Joselyn Xavier APRN.GEOLOGICAL SCOUT [address] [place] [address] [place] [id number] Referral ID Status Reason Start Date Expiration Date Visits Requested Visits Authorized [id number] Authorized Auto-Generat ed Referral 03/08/2024 1 1 [facility] for referral (narrative)* Outpatient Procedure (Routine) - Pending Review Specialty Diagnoses / Procedures Referred By Contac t Referred To Contact [facility] Diagnoses 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 Procedures ECG COMPLETE ECG ROUTINE ECG W/LEAST 12 LDS W/I&R Joselyn Reyes APRN.CNP [address] [place] [address] [facility] [place] [address] Referral ID Status Reason Start Date Expiration Date Visits Requested Visits Authorized [id number] Pending Review Auto-Generat ed Referral 3 04/10/2024 1 1 [facility] Summary Purpose Family History No Family History Records FoundNo Family History Records FoundNo Family History Records FoundNo Family History Records Found Advance Directives No Advanced Directives Records FoundLatest Code Status on File Code Status Date Activated Date Inactivated Comments Full Code 01/07/2022 8:53 PM 01/13/2022 5:18 PM Full Code Order Discussed With: Patient Latest Code Status on File Code Status Date Activated Date Inactivated Comments Full Code 01/07/2022 8:53 PM 01/13/2022 5:18 PM Latest Code Status on File Code Status Date Activated Date Inactivated Comments Full Code 01/07/2022 8:53 PM 01/13/2022 5:18 PM Question Answer Comments Full Code Order Discussed With: Patient Latest Code Status on File Code Status Date Activated Date Inactivated Comments Full Code 01/07/2022 8:53 PM 01/13/2022 5:18 PM Question Answer Comments Full Code Order Discussed With: Patient Latest Code Status on File Code Status Date Activated Date Inactivated Comments Full Code 01/07/2022 8:53 PM 01/13/2022 5:18 PM Question Answer Comments Full Code Order Discussed With: Patient Additional Source Comments (unrecognized sect ion and content) No Status Records FoundNo Status Records FoundNo Status Records FoundNo Status Records Found INFORMATION SOURCE (unrecogn ized section and content) DATE CREATED AUTHOR AUTHOR'S ORGANIZ ATION 06/27/2022 [facility] DATE CREATED AUTHOR AUTHOR'S ORGANIZ ATION 03/25/2023 [facility] DATE CREATED AUTHOR AUTHOR'S ORGANIZ ATION 04/14/2023 [facility] Care Team (unrecognized sect ion and content) Care Team Personnel Name: EZEKIEL COLES Position: P4 Physician - Primary Care Med Service: Active Provider Member Role: Primary Care Physician Address: Address: [address] [place] [address] Care Team Related Persons Name: SENIA KAMARA Name: SENIA KAMARA Care Team Personnel Name: EZEKIEL COLES DO Position: P4 Physician - Primary Care Member Role: Primary Care Physician Address: Address: [address] [place] [address] Care Team Related Persons Name: SENIA KAMARA Name: SENIA KAMARA Source Comments (unrecognize d section and content) In the event this informatio n is protected by the Federal Confidentiality of Alcohol and Drug Abuse Patient Records regulations: The Federal rules restrict any use of the information to criminally investigate or prosecute any alcohol or drug abuse [facility] event this information is protected by the Federal Confidentiality of Alcohol and Drug Abuse Patient Records regulations: The Federal rules restrict any use of the information to criminally investigate or prosecute any alcohol or drug abuse patient.[facility] the event this information is protected by the Federal Confidentiality of Alcohol and Drug Abuse Patient Records regulations: The Federal rules restrict any use of the information to criminally investigate or prosecute any alcohol or drug abuse patient.[facility] the event this information is protected by the Federal Confidentiality of Alcohol and Drug Abuse Patient Records regulations: The Federal rules restrict any use of the information to criminally investigate or prosecute any alcohol or drug abuse patient.[facility] the event this information is protected by the Federal Confidentiality of Alcohol and Drug Abuse Patient Records regulations: The Federal rules restrict any use of the information to criminally investigate or prosecute any alcohol or drug abuse patient.[facility] the event this information is protected by the Federal Confidentiality of Alcohol and Drug Abuse Patient Records regulations: The Federal rules restrict any use of the information to criminally investigate or prosecute any alcohol or drug abuse patient.[facility] the event this information is protected by the Federal Confidentiality of Alcohol and Drug Abuse Patient Records regulations: The Federal rules restrict any use of the information to criminally investigate or prosecute any alcohol or drug abuse patient.[facility] the event this information is protected by the Federal Confidentiality of Alcohol and Drug Abuse Patient Records regulations: The Federal rules restrict any use of the information to criminally investigate or prosecute any alcohol or drug abuse patient.[facility] the event this information is protected by the Federal Confidentiality of Alcohol and Drug Abuse Patient Records regulations: The Federal rules restrict any use of the information to criminally investigate or prosecute any alcohol or drug abuse patient.[facility] the event this information is protected by the Federal Confidentiality of Alcohol and Drug Abuse Patient Records regulations: The Federal rules restrict any use of the information to criminally investigate or prosecute any alcohol or drug abuse patient.[facility] the event this information is protected by the Federal Confidentiality of Alcohol and Drug Abuse Patient Records regulations: The Federal rules restrict any use of the information to criminally investigate or prosecute any alcohol or drug abuse patient.[facility] the event this information is protected by the Federal Confidentiality of Alcohol and Drug Abuse Patient Records regulations: The Federal rules restrict any use of the information to criminally investigate or prosecute any alcohol or drug abuse patient.[facility] the event this information is protected by the Federal Confidentiality of Alcohol and Drug Abuse Patient Records regulations: The Federal rules restrict any use of the information to criminally investigate or prosecute any alcohol or drug abuse patient.[facility] the event this information is protected by the Federal Confidentiality of Alcohol and Drug Abuse Patient Records regulations: The Federal rules restrict any use of the information to criminally investigate or prosecute any alcohol or drug abuse patient.[facility] the event this information is protected by the Federal Confidentiality of Alcohol and Drug Abuse Patient Records regulations: The Federal rules restrict any use of the information to criminally investigate or prosecute any alcohol or drug abuse patient.[facility] the event this information is protected by the Federal Confidentiality of Alcohol and Drug Abuse Patient Records regulations: The Federal rules restrict any use of the information to criminally investigate or prosecute any alcohol or drug abuse patient.[facility] the event this information is protected by the Federal Confidentiality of Alcohol and Drug Abuse Patient Records regulations: The Federal rules restrict any use of the information to criminally investigate or prosecute any alcohol or drug abuse patient.[facility] the event this information is protected by the Federal Confidentiality of Alcohol and Drug Abuse Patient Records regulations: The Federal rules restrict any use of the information to criminally investigate or prosecute any alcohol or drug abuse patient.[facility] the event this information is protected by the Federal Confidentiality of Alcohol and Drug Abuse Patient Records regulations: The Federal rules restrict any use of the information to criminally investigate or prosecute any alcohol or drug abuse patient.[facility] Reason for Visit (unrecogniz ed section and content) Reason Comments Results PT/INR Reason Onset Date Comments Refill Request 01/23/2022 Reason Comments CARD Hospital Follow Up No new symptoms since getting out of the hospital. HR was 150 once. Reason Comments Patient Update IR level Reason Comments Nurse Visit EKG Reason Comments Patient Question Reason Comments Follow Up Reason Comments Results Reason Comments Refill Request Reason Comments Patient Assistance Michellequis patient assi stance for 2022 Reason Onset Date Comments Refill Request 06/06/2022 Reason Comments Patient Update Reason Onset Date Comments Refill Request 12/14/2022 Reason Onset Date Comments Refill Request 12/15/2022 Reason Comments Follow Up I been feeling my h eart beat a few times. Weight gain Reason Comments Orders Reason Comments Nurse Visit Ekg Care Teams (unrecognized sec tion and content) Permanent Waver Relationship Specialty Start Date End Date Ezekiel Coles PCP - General Family Practice 08/04/10 Narendra Britton MD, [address] [place] [address] Physician Radiation Oncology 01/16/18 Permanent Waver Relationship Specialty Start Date End Date Ezekiel Coles PCP - General Family Practice 08/04/10 Narendra Britton MD, [address] [place], [place] [id number] Physician Radiation Oncology 01/16/18 Permanent Waver Relationship Specialty Start Date End Date Ezekiel Coles PCP - General Family Medicine 08/04/10 Narendra Britton MD, MD [address] [place] [address] Physician Radiation Oncology 01/16/18 Permanent Waver Relationship Specialty Start Date End Date Ezekiel Coles PCP - General Family Medicine 08/04/10 Narendra Britton MD, [address] [place] [address] Physician Radiation Oncology 01/16/18 Permanent Waver Relationship Specialty Start Date End Date Ezekiel Coles PCP - General Family Medicine 08/04/10 Narendra Britton MD, [address] [place] [address] Physician Radiation Oncology 01/16/18 Permanent Waver Relationship Specialty Start Date End Date Ezekiel Coles PCP - General Family Medicine 08/04/10 Narendra Britton MD, [address] [place] [address] Physician Radiation Oncology 01/16/18 Permanent Waver Relationship Specialty Start Date End Date Ezekiel Coles DO PCP - General Family Medicine 08/04/10 Narendra Britton MD, [address] [place] [address] Physician Radiation Oncology 01/16/18 Permanent Waver Relationship Specialty Start Date End Date Ezekiel Coles DO PCP - General Family Medicine 08/04/10 Narendra Britton MD, [address] [place] [address] Physician Radiation Oncology 01/16/18 Permanent Waver Relationship Specialty Start Date End Date Ezekiel Coles DO PCP - General Family Medicine 08/04/10 Narendra Britton MD, [address] [place] [address] Physician Radiation Oncology 01/16/18 Permanent Waver Relationship Specialty Start Date End Date Ezekiel Coles DO PCP - General Family Medicine 08/04/10 Narendra Britton MD, [address] [place] [address] Physician Radiation Oncology 01/16/18 Permanent Waver Relationship Specialty Start Date End Date Ezekiel Coles DO PCP - General Family Medicine 08/04/10 Narendra Britton MD, [address] [place] [address] Physician Radiation Oncology 01/16/18 Permanent Waver Relationship Specialty Start Date End Date Ezekiel Coles DO PCP - General Family Medicine 08/04/10 Narendra Britton MD, [address] [place] [address] Physician Radiation Oncology 01/16/18 Permanent Waver Relationship Specialty Start Date End Date Ezekiel Coles DO PCP - General Family Medicine 08/04/10 Narendra Britton MD, MD [address] [place] [address] Physician Radiation Oncology 01/16/18 FOR RECORDS PERTAINING TO PATIENTS WHO ARE OR HAVE BEEN ENROLLED IN A CHEMICAL DEPENDENCY/SUBSTANCEABUSE PROGRAM, SOME INFORMATION MAY BE OMITTED. This clinical summary was aggregated from multiple sources. Caution should be exercised in using it in the provision of clinical care. This summary normalizes information from multiple sources, and as a consequence, information in this document may materially change the coding, format and clinical context of patient data. In addition, data may be omitted in some cases. CLINICAL DECISIONS SHOULD BE BASED ON THE PRIMARY CLINICAL RECORDS. [employer] provides no warranty or guarantee of the accuracy or completeness of information in this document.
[2023-05-24 10:43] LABS: Absolute Lymphocyte Count 2.02 X10^3/uL (0.83-4.51); Absolute Neutrophil Count 4.2 X10^3/uL (2.0-7.7); Basophil# 0.05 X10^3/uL; Basophil% 0.7 % (0-1); Eosinophil# 0.11 X10^3/uL; Eosinophils% 1.5 % (0-5); Hematocrit 39.9 % (40-54); Hemoglobin 13.6 g/dL (13.0-16.5); Lymphocyte # 2.02 X10^3/ul (0.83-4.51); Lymphocyte % 27.9 % (19-41); Mean Corp Hgb Conc 34.1 g/dL (32-36); Mean Corpuscular Hgb 33.2 pg (27.0-32.0); Mean Corpuscular Volume 97.3 fL (80-94); Mean Platelet Vol. 9.1 fl (6.2-12.0); Monocyte# 0.78 X10^3/uL; Monocyte% 10.8 % (0-10); NRBC Flagged by Analyzer 0 % (0-5); Neutrophil # 4.23 X10^3/uL (2.7-7.7); Neutrophil % 58.4 % (47-70); Platelet Count 213 K/mm3 (150-450); White Blood Count 7.2 K/mm3 (4.4-11.0)
[2023-05-24 10:58] LABS: Protein:Creat Ratio 76 mg/g CRE (0-200)
[2023-05-24 11:07] LABS: PTHIN 83.1 pg/mL (18.4-80.1)
[2023-05-24 11:21] LABS: Albumin, Serum 3.8 g/dL (3.2-5.0); BUN 22 mg/dL (7-18); BUN/Creat Ratio 16.4 RATIO (10-20); Calcium,Total 9.1 mg/dL (8.5-10.1); Chloride 107 mmol/L (98-107); Creatinine, Serum 1.34 mg/dL (0.70-1.30); EST Glomerular Filtration Rate 55 mL/min (>60); Est Glom Filt Rate - Afr Amer 67 mL/min (>60); Ferritin 118 ng/mL (26-388); Glucose 101 mg/dL (74-106); Iron 52 ug/dL (65-175); Iron Binding Capacity,Total 297 ug/dL (250-450); PERCENT IRON SATURATION 17.5 % (15.0-55.0); Phosphorus 3.4 mg/dL (2.5-4.9); Potassium 3.9 mmol/L (3.5-5.1); Sodium Level 141 mmol/L (136-145); Uric Acid 6.3 mg/dL (3.5-7.2)
== END | disposition home or self-care (01) ==
PROVIDERS: PCP Preventive Medicine Occupational Medicine; Referring Provider Urology; Visit Provider Urology
DX: N18.32 Chronic kidney disease, stage 3b (principal); C61 Malignant neoplasm of prostate; D63.1 Anemia in chronic kidney disease
CPT/HCPCS: 36415; 80069; 82570; 82728; 83540; 83550; 83970; 84153; 84156; 84550; 85025

== ENCOUNTER → 2023-09-19 | Outpatient (CLI) | payer MEDICARE, SELFPAY ==
[2023-09-19 10:31] LABS: Absolute Lymphocyte Count 1.62 X10^3/uL (0.83-4.51); Absolute Neutrophil Count 4.2 X10^3/uL (2.0-7.7); Basophil# 0.03 X10^3/uL; Basophil% 0.5 % (0-1); Eosinophil# 0.12 X10^3/uL; Eosinophils% 1.8 % (0-5); Hematocrit 41.8 % (40-54); Hemoglobin 13.7 g/dL (13.0-16.5); Lymphocyte # 1.62 X10^3/ul (0.83-4.51); Lymphocyte % 24.4 % (19-41); Mean Corp Hgb Conc 32.8 g/dL (32-36); Mean Corpuscular Hgb 32.1 pg (27.0-32.0); Mean Corpuscular Volume 97.9 fL (80-94); Mean Platelet Vol. 9.4 fl (6.2-12.0); Monocyte# 0.65 X10^3/uL; Monocyte% 9.8 % (0-10); NRBC Flagged by Analyzer 0 % (0-5); Neutrophil # 4.19 X10^3/uL (2.7-7.7); Platelet Count 205 K/mm3 (150-450); RBC Distribution Width SD 50.2 fl (35.1-43.9); Red Blood Count 4.27 M/mm3 (4.6-6.2); White Blood Count 6.6 K/mm3 (4.4-11.0)
[2023-09-19 10:45] LABS: Protein, Urine (Random) 11.6 mg/dL (<11.9); Protein:Creat Ratio 88 mg/g CRE (0-200)
[2023-09-19 14:03] LABS: Albumin, Serum 3.6 g/dL (3.2-5.0); BUN 18 mg/dL (7-18); BUN/Creat Ratio 13.4 RATIO (10-20); Calcium,Total 9.1 mg/dL (8.5-10.1); Chloride 106 mmol/L (98-107); Creatinine, Serum 1.34 mg/dL (0.70-1.30); EST Glomerular Filtration Rate 55 mL/min (>60); Est Glom Filt Rate - Afr Amer 67 mL/min (>60); Ferritin 62 ng/mL (26-388); Glucose 146 mg/dL (74-106); Iron 60 ug/dL (65-175); Iron Binding Capacity,Total 314 ug/dL (250-450); PERCENT IRON SATURATION 19.1 % (15.0-55.0); Phosphorus 2.5 mg/dL (2.5-4.9); Potassium 3.6 mmol/L (3.5-5.1); Sodium Level 140 mmol/L (136-145); Uric Acid 6.4 mg/dL (3.5-7.2)
== END | disposition home or self-care (01) ==
LOC: LAB 09:27
PROVIDERS: PCP Preventive Medicine Occupational Medicine; Referring Provider Internal Medicine Nephrology; Visit Provider Internal Medicine Nephrology
DX: I12.9 Hypertensive chronic kidney disease with stage 1 through stage 4 chronic kidney disease, or unspecified chronic kidney disease (principal); N18.32 Chronic kidney disease, stage 3b; D63.1 Anemia in chronic kidney disease
CPT/HCPCS: 36415; 80069; 82570; 82728; 83540; 83550; 83970; 84156; 84550; 85025

== ENCOUNTER → 2023-10-03 | Outpatient (CLI) | payer MEDICARE, SELFPAY | END | disposition home or self-care (01) | LOC: LAB 13:08 | PROVIDERS: PCP Preventive Medicine Occupational Medicine; Referring Provider Urology; Visit Provider Urology | DX: C61 Malignant neoplasm of prostate (principal) | CPT/HCPCS: 36415; 84153 ==

== ENCOUNTER → 2024-01-17 | Outpatient (CLI) | payer MEDICARE, SELFPAY ==
[2024-01-17 13:25] LABS: PSA,Total- Diagnostic 2.43 ng/mL (0.0-4.0)
== END | disposition home or self-care (01) ==
LOC: LAB 12:03
PROVIDERS: PCP Preventive Medicine Occupational Medicine; Referring Provider Nurse Practitioner; Visit Provider Nurse Practitioner
DX: C61 Malignant neoplasm of prostate (principal)
CPT/HCPCS: 36415; 84153

== ENCOUNTER → 2024-04-21 | Outpatient (CLI) | payer MEDICARE, SELFPAY ==
[2024-04-21 16:49] LABS: PSA,Total- Diagnostic 0.68 ng/mL (0.0-4.0)
== END | disposition home or self-care (01) ==
LOC: LAB 15:30
PROVIDERS: PCP Preventive Medicine Occupational Medicine; Referring Provider Urology; Visit Provider Urology
DX: C61 Malignant neoplasm of prostate (principal)
CPT/HCPCS: 36415; 84153

== ENCOUNTER → 2024-07-21 | Outpatient (CLI) | payer MEDICARE, SELFPAY ==
[2024-07-21 14:28] LABS: PSA,Total- Diagnostic 1.05 ng/mL (0.00-4.00)
== END | disposition home or self-care (01) ==
LOC: LAB 13:09
PROVIDERS: PCP Preventive Medicine Occupational Medicine; Referring Provider Urology; Visit Provider Urology
DX: C61 Malignant neoplasm of prostate (principal)
CPT/HCPCS: 36415; 84153

== ENCOUNTER → 2024-11-25 | Outpatient (CLI) | payer MEDICARE, SELFPAY ==
--- NOTE | 2024-11-25 09:46 | US_ITS ---
PROCEDURE: ABDOMEN LIMITED 11/25/2024 REASON FOR EXAM: ABDOMINAL PAIN, ELEVATED ALP TECHNIQUE: ABDOMEN LIMITED COMPARISON: None FINDINGS: Liver: The liver has multiple heterogeneous lesions with the appearance of diffuse metastatic disease with a largest in the left hepatic lobe measuring a proximally 8 cm and in the right hepatic lobe measuring approximately 8 cm x 6 cm. Gallbladder: There is no gallbladder wall thickening or stone. Common bile duct: 4 mm . Pancreas: Unremarkable Kidneys: The right kidney measures 11.4 cm. Peritoneal Findings: There is no free fluid. US/Abdomen Limited IMPRESSION: The liver has multiple heterogeneous lesions with the appearance of diffuse met astatic disease with a largest in the left hepatic lobe measuring a proximally 8 cm and in the right hepatic lobe measuring approx imately 8 cm x [address] correlation is recommended. Critical results were discussed with Dr Ghosh by Edel at the time of dict ation. Reading Location: [facility]
--- NOTE | 2024-11-25 09:46 | US_ITS ---
PROCEDURE: ABDOMEN LIMITED 11/25/2024 REASON FOR EXAM: ABDOMINAL PAIN, ELEVATED ALP TECHNIQUE: ABDOMEN LIMITED COMPARISON: None FINDINGS: Liver: The liver has multiple heterogeneous lesions with the appearance of diffuse metastatic disease with a largest in the left hepatic lobe measuring a proximally 8 cm and in the right hepatic lobe measuring approximately 8 cm x 6 cm. Gallbladder: There is no gallbladder wall thickening or stone. Common bile duct: 4 mm . Pancreas: Unremarkable Kidneys: The right kidney measures 11.4 cm. Peritoneal Findings: There is no free fluid. US/Abdomen Limited IMPRESSION: The liver has multiple heterogeneous lesions with the appearance of diffuse met astatic disease with a largest in the left hepatic lobe measuring a proximally 8 cm and in the right hepatic lobe measuring approx imately 8 cm x [address] correlation is recommended. Critical results were discussed with Dr Ghosh by Edel at the time of dict ation. Reading Location: [facility]
== END | disposition home or self-care (01) ==
LOC: US 09:46
PROVIDERS: PCP Preventive Medicine Occupational Medicine
DX: R10.9 Unspecified abdominal pain (principal)
CPT/HCPCS: 76705

== ENCOUNTER → 2024-11-27 | Outpatient (CLI) | payer MEDICARE, SELFPAY ==
[2024-11-27 14:58] LABS: Hematocrit 34.4 % (40-54); Hemoglobin 11.3 g/dL (13.0-16.5); Immature Granulocytes Count 0.050 X10^3/uL (0.0-0.0); Mean Corp Hgb Conc 32.8 g/dL (32-36); Mean Corpuscular Volume 93.2 fL (80-94); Mean Platelet Vol. 9.0 fl (6.2-12.0); NRBC Flagged by Analyzer 0 % (0-5); Platelet Count 267 K/mm3 (150-450); RBC Distribution Width CV 14.4 % (11.6-14.6); RBC Distribution Width SD 49.2 fl (35.1-43.9); Red Blood Count 3.69 M/mm3 (4.6-6.2); White Blood Count 8.3 K/mm3 (4.4-11.0)
[2024-11-27 15:24] LABS: Prothrombin Time (Protime)PT. 16.1 SECONDS (11.7-14.9)
[2024-11-27 15:50] LABS: AST(SGOT) 53 U/L (<=37); Alanine Aminotransfer ALT/SGPT 77 U/L (<=46); Albumin, Serum 3.8 g/dL (3.4-4.8); Alkaline Phosphatase 319 U/L (40-129); Anion Gap 11 (5-15); BUN 19 mg/dL (4-19); BUN/Creat Ratio 15.3 RATIO (10-20); Calcium,Total 9.3 mg/dL (7.6-11.0); Carbon Dioxide 24.1 mmol/L (21.0-32.0); Chloride 104 mmol/L (98-108); Globulin 2.7 g/dL (2.2-4.2); Glucose 128 mg/dL (70-99); PSA,Total- Diagnostic 14.30 ng/mL (0.00-4.00); Potassium 4.3 mmol/L (3.3-5.1)
[2024-11-29 04:07] LABS: Carcinoembryonic Antigen 1.2 ng/mL (0.0-4.7)
== END | disposition home or self-care (01) ==
LOC: LAB 14:36
PROVIDERS: PCP Preventive Medicine Occupational Medicine
DX: R10.13 Epigastric pain (principal); R16.0 Hepatomegaly, not elsewhere classified
CPT/HCPCS: 80053; 82105; 82378; 84153; 85025; 85610

== ENCOUNTER → 2024-12-18 | Outpatient (CLI) | payer MEDICARE, SELFPAY ==
--- NOTE | 2024-12-18 16:09 | CT_ITS ---
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 Coronal and Sagittal reconstruction series were provided. One or more dose reduction techniques were used (e.g., Automated exposure control, adjustment of the mA and/or kV according to patient size, use of iterative reconstruction technique. PATIENT PREPARATION: Per protocol ORAL CONTRAST TYPE: None. AMOUNT: mL CONTRAST: Isovue 370 VOLUME: 99mL Gauge IV RADIATION DOSE SUMMARY: CTDlvol: 65 mGy DLP: 2264 mGycm COMPARISON: Abdominopelvic CT 09/23/2019 FINDINGS: Unremarkable base of neck and axilla. Normal esophagus. Normal heart size. No acute vascular pathology. Dilated ascending aorta, 4.7 cm maximum cross-section. Thoracic spine degeneration. Status post proximal left humerus injury/repair. Central airways are patent. There are bilateral numerous, approximately 20, noncalcified lung nodules measuring up to 1.5 cm on the left, series 6, image 10 and 0.9 cm on the right, series 6, image 96. Interval development of extensive and partially confluence liver metastatic disease. Largest lesion, series 3, image 28, centered in the right lobe, measures approximately 7.9 x 17.7 cm. There is thrombus in the portal confluence, series 3, image 44, which could possibly represent tumor, rather than bland, thrombus. Unremarkable gallbladder. Normal pancreas, spleen, adrenal glands, kidneys. No hydronephrosis. There is a suspected bladder mass, series 605, image 92, measuring about 1.2 cm, off the right posterior bladder wall.. The prostate gland is small or has been removed, advise correlation.. No retroperitoneal or pelvic adenopathy. No free air. Nondistended bowel. No acute large bowel findings. No signs of appendicitis. Lumbar spine degeneration. No acute abdominal wall findings. There is pelvic floor laxity. CT/CT Chest, Abd, Pel w/Contrast IMPRESSION: Extensive lung metastatic disease. Extensive liver metastatic disease. 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 Suspect bladder tumor. Consider cystoscopy. Reading Location: [place] [address]
== END | disposition home or self-care (01) ==
LOC: CT 16:08
PROVIDERS: PCP Preventive Medicine Occupational Medicine
DX: R10.13 Epigastric pain (principal); R16.0 Hepatomegaly, not elsewhere classified
CPT/HCPCS: 71260; 74177; Q9967

== ENCOUNTER 2025-01-06 09:17 | Outpatient (CLI) | payer MEDICARE, SELFPAY ==
[2025-01-06] VITALS (13 sets, daily range): BP systolic 101–164; BP diastolic 59–90; PULSE 51–71; RESP 12–27; TEMP 35.2; O2SAT 28–95; BMI 33.7
[2025-01-06 09:32] LABS: Hematocrit 38.4 % (40-54); Hemoglobin 12.4 g/dL (13.0-16.5); Immature Granulocytes Count 0.040 X10^3/uL (0.0-0.0); Mean Corp Hgb Conc 32.3 g/dL (32-36); Mean Corpuscular Volume 92.3 fL (80-94); Mean Platelet Vol. 9.0 fl (6.2-12.0); NRBC Flagged by Analyzer 0 % (0-5); Platelet Count 274 K/mm3 (150-450); RBC Distribution Width CV 13.6 % (11.6-14.6); RBC Distribution Width SD 46.0 fl (35.1-43.9); Red Blood Count 4.16 M/mm3 (4.6-6.2); White Blood Count 6.5 K/mm3 (4.4-11.0)
[2025-01-06 09:41] LABS: Partial Thromboplast Time 30.6 Seconds (24.1-36.2); Prothrombin Time (Protime)PT. 12.8 SECONDS (11.7-14.9)
--- NOTE | 2025-01-06 10:06 | US_ITS ---
PROCEDURE: LIVER BIOPSY ULTRASOUND 01/06/2025 REASON FOR EXAM: HEPATOMEGALY Numerous hepatic metastases seen on CT. PROCEDURE: Conscious sedation was employed during the procedure, with start time of 1129 hours and stop time of 1153 hours. Intravenous administration of a total of 3 mg Versed and 50 mcg fentanyl was used. Following informed consent, and using standard sterile technique, ultrasound- guided core biopsy of a large right inferior hepatic mass was performed. 2% lidocaine local anesthesia was followed by placement of a 15 cm 18 gauge Mobspiret core biopsy system. A total of 5 core samples were then obtained, and presented to pathology. Postcontrast imaging was then obtained. No complication was encountered, and the patient left the department in good condition without significant complaint. US/Liver Biopsy Ultrasound IMPRESSION: Successful ultrasound-guided right hepatic core biopsy. Pathology results pend ing. Reading Location: [place] [address]
[2025-01-06] MEDS: Midazolam 2 MG/2 ML Syringe IV ×2 (11:29→11:42)
[2025-01-06] MEDS: 0.9% Saline Lock 10 ML Syringe IV (11:29)
[2025-01-06] MEDS: fentaNYL 100 MCG/2 ML Ampul IV (11:32)
[2025-01-06] MEDS: Lidocaine 2% (20 ml mdv) 20 ML Vial INFILT (11:38)
--- NOTE | 2025-01-06 11:45 | ASPIGT_PTH ---
PATIENT: ANYA ST LOC: MS U#:[id number] AGE/SX: 74/M ROOM: RE01/06/[address]: Dr. Trena Esteban MD : 1950 BED: DIS: 01/06/2025 SPEC #: [id number] RECD: 01/06/25 12:01 STATUS: WILBERT REPedro #: [id number] ADITHYA: 01/06/25 11:[address]: Trena Esteban DEPT: SURGICAL PATHOLOGY RECD BY: Monserrat Gipson ENTERED: 01/06/25 12:15 SP TYPE: ASP RAD OTHR DR: MD Dr. Caleb Juarez DO Tissues: Liver, NOS Procedures: FNA Specimen Adequacy Immunohistochemical Stains Special Stain Group II Surgery Specimen Level V Imprint (control) IHC Stain ADDITIONAL HEADER OPERATION: Ultrasound guided liver biopsy PRE-OP DIAGNOSIS: Liver mass - right TISSUE SUBMITTED: A- Liver biopsy x 5 cores MICROSCOPIC DIAGNOSIS A. 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 - IHC performed: - positive for Vimentin, Desmin, SMA, and SAAD (weak). - Ki67 approximately 50%. - negative for pankeratin, CK7, PSAP, GATA3, PAX8, S100, Melan A, Chromogranin, Synaptophysin, MDM2, and HMB45. Note: The tumor consists of a pleomorphic hyperchromatic spindle cell proliferation with immunophenotype consistent with leiomyosarcoma. The site of origin cannot be determined from this sample. Correlation with clinical and imaging findings is essential. COMMENT The specimen is evaluated at the time of biopsy by Dr. Mena. Immediate Evaluation = 1. Few cells, blood. 2. Adequate. 3. Rare cells, blood. 4. Adequate. Selected slides/images were reviewed in intradepartmental consultation by Dr Liz Becerra (bone & soft tissue pathology division, [facility]). MICROSCOPIC DESCRIPTION Slides are reviewed. All matched controls reacted appropriately. These tests were developed and their performance characteristics determined by [facility]. They may not have been cleared or approved by the U.S. Food and Drug Administration. The FDA has determined that such clearance or approval is not necessary.? The above immunohistochemical?markers and/or special stains have been reviewed by the Pathologist. All controls show appropriate reactivity. (MDM2, HMB45) All immunohistochemistry, in situ hybridization, and histochemical tests were developed by and are performed at the [facility], [address] [place] [address], [facility], [place] [address]. All Immunofluorescent (IF)?tests were developed by and are performed at the [facility], [address] [place] [address], [place], [place] ?[address]. All tests reported here, except those addressing HER2 overexpression as a predictive marker, have not been cleared by or approved by the US Food and Drug Administration (FDA). The laboratory is regulated under CLIA as qualified to perform high-complexity testing. The tests are used for clinical purposes. They should not be regarded as investigational or for research GROSS DESCRIPTION A. Received in formalin labeled with the patient's name and date of . Designated as R liver are 5 biswas-white focally erythematous, somewhat fibrotic tissue cores, 1.7 cm to 2.2 cm in length by 0.1 cm in diameter. Touch preparations are made. The specimen is entirely submitted in 2 cassettes as follows: A1: 3 tissue coresA2: 2 tissue cores DE 01/06/2025 CPT:16148,[id number]
== END 2025-01-06 23:59 | disposition home or self-care (01) ==
PROVIDERS: Radiology Nuclear Radiology; Referring Provider Internal Medicine Hematology & Oncology; Visit Provider Internal Medicine Hematology & Oncology
DX: C78.7 Secondary malignant neoplasm of liver and intrahepatic bile duct (principal); C78.00 Secondary malignant neoplasm of unspecified lung; C49.9 Malignant neoplasm of connective and soft tissue, unspecified; I48.91 Unspecified atrial fibrillation; E66.01 Morbid (severe) obesity due to excess calories; C61 Malignant neoplasm of prostate; K58.9 Irritable bowel syndrome, unspecified; Z68.33 Body mass index [BMI] 33.0-33.9, adult; Z79.01 Long term (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 anticoagulants; Z90.49 Acquired absence of other specified parts of digestive tract; Z79.899 Other long term (current) drug therapy
CPT/HCPCS: 47000; 36415; 76942; 85025; 85610; 85730; 88172; 88307; 88313; 88341; 88342; 99156; A4216

== ENCOUNTER 2025-01-14 06:49 | Day surgery (SDC) | payer MEDICARE, SELFPAY ==
--- NOTE | 2025-01-13 08:02 | PAT.ANESEVAL ---
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 When Was Last Pacemaker Check QUESTION #4 FULL TEXT: You/Your Family Experience fever (hyperthermia) with Anesthesia Last Oral Intake Last Oral intake: Last Oral Intake NPO since Meds taken in AM with sips of water? Meds patient instructed to take am of surgery PONV PONV - biology lecturer: PONV - biology lecturer Female No 01/09/25 15:01 HX of Motion Sickness No 01/09/25 15:01 HX of N/V After Surgery No 01/09/25 15:01 Non-Smoker Yes 01/09/25 15:01 Duration of Surgery greater No 01/09/25 15:01 than 60 minutes Number of Risk Factors 1 01/09/25 15:01 PONV Score Low Risk 01/09/25 15:01 Height & Weight Height & Weight: Anesthesia: Height & Weight Height 5 ft 11 in 01/06/25 10:00 Respiratory Assessment Respiratory Assessment - biology lecturer: Respiratory Tract Infection Hx - biology lecturer Hx Respiratory Tract Infection No 01/09/25 15:01 STOP Sleep Apnea STOP Sleep Apnea - biology lecturer: STOP Sleep Apnea - biology lecturer Hx Hypertension Yes: CONTROLLED WITH MED AT 01/09/25 15:01 THIS TIME Hx Sleep Apnea No 01/09/25 15:01 CPAP BIPAP Do you snore loudly (louder No 01/09/25 15:01 than talking or can be heard Do you often feel tired/ Yes 01/09/25 15:01 fatigued/ sleepy during daytime? Has anyone observed you stop No 01/09/25 15:01 breathing during sleep? STOP Results Positive 01/09/25 15:01 QUESTION #5 FULL TEXT : Do you snore loudly (louder than talking or can be heard through closed doors)? Tobacco Use History Tobacco Use History - biology lecturer: Tobacco Use History - biology lecturer Tobacco Use Smoking Status Never smoker 01/09/25 15:01 Hx Tobacco Use No 01/09/25 15:01 Years Smoking Packs Smoked per Day Smoking Cessation Date was within the last 15 years Hx Smoking Cessation Date Hx Smoking Cessation Counseling Hematologic Medial History Hematologic Hx - biology lecturer: Hematologic Medical Hx - compressor battery pellets Hx of Blood Transfusion No 01/09/25 15:01 Hx of Transfusion in last 3 No 01/09/25 15:01 Months Date of Last Transfusion (if within last 3 months) Ever experience any problems No 01/09/25 15:01 with transfusion(s)? Specify any problems Hx of Preganancy in last 3 N/A 01/09/25 15:01 Months Nurse Filling Out Transfusion DSCHRIBER 01/09/25 15:01 & Questions: Date: 01/09/25 01/09/25 15:01 Time: 15:03 01/09/25 15:01 Patient unable to answer at this time (ie. 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 Murmur, heart IBS (irritable bowel syndrome) High blood pressure Cancer Atrial fibrillation Home Medications ?Medication ?Instructions ?Recorded ?Last Taken ?Type finasteride 5 mg tablet 5 mg PO DAILY 07/26/19 Unknown History lorazepam 0.5 mg tablet 0.5 mg PO DAILY PRN PRN Anxiety 07/26/19 Unknown History losartan 100 mg tablet 100 mg PO DAILY 07/26/19 Unknown History tamsulosin 0.4 mg capsule 0.4 mg PO DAILY 07/26/19 Unknown History apixaban 5 mg tablet (Eliquis) 5 mg PO BID 11/17/24 Unknown History fluticasone furoate 100 1 inh inhalation QHS 11/17/24 Unknown History mcg-vilanterol 25 mcg/dose inhalation powder (Breo Ellipta) dofetilide 125 mcg capsule 250 mcg PO BID 12/30/24 Unknown History albuterol sulfate 90 mcg/actuation 1 - 2 puff inhalation Q4H PRN 01/09/25 Unknown History aerosol inhaler wheezing Allergy/AdvReac Type Severity Reaction Status Date / Time No Known Allergies Allergy Verified 01/09/25 14:57 Family History (Updated 12/30/24 @ 13:43 by Sangita Brewer) Father Alcoholism Brother Cancer Prostate Aunt Cancer Grandmother Dementia Surgical History (Updated 01/09/25 @ 15:16 by Jessica Willett) History of cardiac catheterization History of cardiac ablation for atrial fibrillation History of tonsillectomy and adenoidectomy History of repair of hiatal hernia History of esophagogastroduodenoscopy (EGD) Hx of colonoscopy History of surgery on arm Hx of vasectomy History of appendectomy Social History (Updated 12/30/24 @ 13:41 by Sangita Brewer) Smoking Status: Never smoker alcohol intake: current alcohol intake frequency: holidays/special occasions only Alcohol type: wine substance use type: does not use Audit: Pertinent Findings Pertinent Findings EKG Perinent findings: December 26, 2024. Sinus bradycardia with sinus arrhythmia. Left anterior fascicular block. Minimal voltage criteria for LVH. Echo (EF%) pertinent findings: July 07, 2024. EF of 58%. No aortic stenosis noted. Ascending aorta is measured at 4.7 cm. Consult pertinent findings: November 20, 2024. 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 1. Chronic cough?continue using albuterol inhaler. Follow-up CT scan. 2. Obstructive sleep apnea?continue CPAP. 3. vitamin D deficiency-continue vitamin D supplementation. 4. Paroxysmal atrial fibrillation-recent ablation. Patient currently in sinus bradycardia as above. Continue metoprolol. Follow-up currently ongoing Holter monitor. (See below) Additional pertinent findings: Holter monitor. April 22, 2024. Predominant rhythm is sinus rhythm. First-degree AV block and bundle branch block are present. There were 12 asymptomatic runs of SVT. Atrial fibrillation occurred 9% of the time. Occasional PACs. Rare PVCs. No symptoms were reported. Recommendation Anesthesia Recommendation Anesthesia recommendation: OPTIMIZED for anesthesia
[2025-01-14] VITALS (8 sets, daily range): BP systolic 108–130; BP diastolic 78–91; PULSE 74–85; RESP 16–18; TEMP 36.1–37.6; O2SAT 97–98; BMI 33.8
--- OUTSIDE RECORDS SUMMARY | 2025-01-14 06:54 | XMS RPT_ITS | CCD ---
Author Organization [facility] Care Team Providers Care [employer] Name Role Phone EZEKIEL CARO DO Primary Care Physician Ezekiel Caro Primary Care Provider [phone] Tobi FRAIRE MD, Daesung Unavailable Ezekiel Crao Primary Care Provider [phone] Ezekiel Caro DO Primary Care Provider [phone] Tobi FRAIRE MD, Daesung Unavailable EZEKIEL CARO DO Primary Care Physician [phone] DEYSI RODRIGUEZ MD Attending Unavailable EZEKIEL CARO Primary Care Unavailable LEIA DEMARCO, DR. PECK Attending Unavail able EZEKIEL CARO Primary Care Unavailable EZEKIEL CARO Attending Unavailable EZEKIEL CARO Primary Care Unavailable LEIA DEMARCO, DR. PECK Attending Unavail able EZEKIEL CARO Primary Care Unavailable Tobi FRAIRE, Daesung Unavailable Ezekiel Caro DO Primary Care Provider [phone] JORDYN GILL Attending Unavailable EZEKIEL CARO Primary Care Unavailable Dr. Ezekiel Caro DO Primary Care Provider [phone] Dr. Bj Momin MD Attending Provider [phone] Dr. Bj Momin MD Referring Provider CALEB MCCURDY DO Primary Care Physician CALEB MCCURDY DO Primary Care Unavailable CALEB MCCURDY DO Attending Unavailable EZEKIEL CARO DO Attending Unavailable EZEKIEL CARO DO Primary Care Unavailable Dr. Ezekiel Caro DO Primary Care Provider [phone] Dr. Bj Momin MD Attending Provider Dr. Bj Momin MD Referring Provider Dr. Ezekiel Caro DO Referring Provider Jonelle Olson Attending Provider Dr. Ezekiel Caro DO Primary Care Provider [phone] Jonelle Olson Referring Provider [phone] Caleb Mccurdy DO Primary Care Provider [phone] Trena Esteban MD Attending Provider Dr. Caleb Mccurdy DO Primary Care Provider [phone] Dr. Trena Esteban MD Referring Provider [phone] ELAYNE EDWARDS Referring Unavailable VANIA, EZEKIEL F Primary Care Unavailable DIO ANAYA Referring Unavailable VANIA, EZEKIEL F Primary Care Unavailable ELAYNE EDWARDS Referring Unavailable VANIA, EZEKIEL F Primary Care Unavailable JONELLE THAYER Referring Unavailable CALEB MCCURDY Primary Care Unavailable DIO ANAYA Admitting Unavailable DIO ANAYA Attending Unavailable DIO ANAYA Referring Unavailable DIO ANAYA Attending Unavailable ELAYNE EDWARDS Referring Unavailable VANIA, EZEKIEL F Primary Care Unavailable ELAYNE EDWARDS Referring Unavailable VANIA, EZEKIEL F Primary Care Unavailable ELAYNE EDWARDS Referring Unavailable VANIA, EZEKIEL F Primary Care Unavailable VIELKA, ROB Admitting Unavailable VIELKA ROB Attending Unavailable DIO ANAYA Referring Unavailable MCCURDY, CALEB Primary Care Unavailable JOSELYN REYES Attending Unavailable VANIA, EZEKIEL F Primary Care Unavailable DIO ANAYA Referring Unavailable VANIA, EZEKIEL F Primary Care Unavailable DIO ANAYA Referring Unavailable JOSELYN REYES Attending Unavailable ELAYNE EDWARDS Attending Unavailable VANIA, EZEKIEL F Primary Care Unavailable Vania, Ezekiel Primary Care Unavailable Vania, Ezekiel Referring Unavailable Howie Riley Attending Unavailable Vania, Ezekiel Primary Care Unavailable Esperanza Wesley Attending Unavailable Esperanza Wesley Referring Unavailable Vania, Ezekiel Primary Care Unavailable Bj Momin Attending Unavailable MerrillBjBud Referring Unavailable Thayer, Jonelle Attending Unavailable Vania, Ezekiel Primary Care Unavailable Thayer, Jonelle Referring Unavailable Isckarus, Mansour Attending Unavailable Isckarus, Mansour Referring Unavailable [facility] Primary Care Unavailable Vania, Ezekiel Primary Care Unavailable Thayer, Jonelle Attending Unavailable Thayer, Jonelle Referring Unavailable Vania, Ezekiel Primary Care Unavailable Vania, Ezekiel Referring Unavailable Thayer, Jonelel Attending Unavailable Thayer, Jonelle Attending Unavailable Vania, Ezekiel Referring Unavailable Vania, Ezekiel Primary Care Unavailable Thayer, Jonelle Referring Unavailable Isckarus, Mansour Attending Unavailable [facility] Primary Care Unavailable Thayer, Jonelle Referring Unavailable Vania, Ezekiel Primary Care Unavailable Thayer, Jonelle Attending Unavailable Vania, Ezekiel Primary Care Unavailable Merrill, Bj Whitehead Attending Unavailable Merrill, Bud Referring Unavailable Isckarus, Mansour Attending Unavailable Isckarus, Mansour Referring Unavailable Geovany Astorga Unavailable [facility] Unavailable Allergies Allergy Classification Reported Allergen(s) Allergy Type Date of Onset Reaction(s) Facility (6 sources) traMADol; Translations: [tramadol] Drug Allergy Unknown [facility] (2 sources) Acetaminophen; Translations: [acetaminophen] Drug Allergy [facility] (20 sources) Acetaminophen / oxyCODONE; Translations: [acetaminophen-oxy codone] Drug Allergy 09-15-2016 Itching [facility] (3 sources) Acetaminophen / oxyCODONE; Translations: [OXYCODONE-ACETAMI NOPHEN] Drug Allergy 09-15-2016 [facility] Repository Medications Current Medications Medication Drug Class(es) Dates Sig (Normalized) Sig (Original) acetaminophen 325 mg oral capsule (7 sources) Start: 08-20-2018 Tylenol 325 mg oral capsule Dose : 650 mg =, Oral, q4h, PRN Pain, scale 1-6, 0 Refill(s) Start Date: 08/20/18 Status: Ordered Repeat number: 1 [id number] 200 actuat albuterol 0.09 mg/actuat metered dose inhaler (6 sources) beta2-Adrenergic Agonist Start: 10-10-2024 take 1 puff(s) by inhalation every six hours as needed for wheezing albuterol HFA (PROVENTIL HFA, VENTOLIN HFA) 90 mcg/actuation inhaler Inhale 1 puff as instructed every 6 hours as needed for wheezing/shortnes s of breath. 10/10/2024 Active albuterol MDI (90 mcg/inh) CFC free inhalation aerosol (3 sources) Start: 10-10-2024 take 1-2 puff(s) by inhalation every four hours as needed for wheezing albuterol MDI (90 mcg/inh) CFC free inhalation aerosol See Instructions, PRN Shortness of breath or wheezing, 1 to 2 puff(s) Inhalation q4h, # 18 gram(s), 0 Refill(s), Pharmacy: [facility], Emphysema of lung, 181.5, cm, 08/19/24 9:28:00 EDT, Height, kg, 10/10/24 13:40:00 EDT, Dosing Weight Start Date: 10/10/24 Status: Ordered Quantity: 18.0 Unit: g Repeat number: 1 Indications: Emphysema, unspecified; Start: 08-19-2024 take 2 puff(s) by in halation every four hours as needed for wheezing albuterol MDI (90 mcg/inh) CFC free inhalation aerosol 2 puff(s), Inhalation, q4h, PRN as needed for wheezing, # 1 EA, 2 Refill(s), Pharmacy: [facility], Emphysema of lung, 181.5, cm, 08/19/24 9:28:00 EDT, Height, kg, 08/19/24 9:28:00 EDT, Dosing Weight Start Date: 08/19/24 Status: Ordered Quantity: 1.0 Unit: EA Repeat number: 3 Indications: Emphysema, unspecified; Start: 03-17-2024 take 2 puff(s) by in halation every four hours as needed for wheezing albuterol MDI (90 mcg/inh) CFC free inhalation aerosol 2 puff(s), Inhalation, q4h, PRN as needed for wheezing, # 1 EA, 2 Refill(s), Pharmacy: [facility], Emphysema of lung, 183, cm, 03/17/24 14:28:00 EST, Height, kg, 03/17/24 14:28:00 EST, Dosing Weight Start Date: 03/17/24 Status: Ordered apixaban 5 mg oral tablet (20 sources) Factor Xa Inhibitor Start: 01-20-2022 End: 07-08-2024 take 1 tablet by mouth twice daily apixaban (ELIQUIS) 5 mg tab(s) Take 1 tablet by mouth two times a day. 180 tablet 3 07/08/2024 Active Comment on above: Take 1 tablet by sarah th twice daily. Take 1 tablet by sarah th two times a day. benzonatate 100 mg oral capsule (20 sources) Non-narcotic Antitussive Start: 01-13-2022 take 2 capsules by mouth three times daily as needed for cough benzonatate (TESSALON PERLES) 100 mg capsule Indications: cough Take 2 capsules by mouth three times daily as needed for cough for up to 20 doses. 20 capsule 01/13/2022 Active Comment on above: Take 2 capsules by m out three times daily as needed for cough for up to 20 doses. 12 hr dextromethorphan polistirex 6 mg/ml extended release suspension (2 sources) Uncompetitive M-twcjwa-S-aspart[place] te Receptor Antagonist, Sigma-1 Agonist Start: 10-17-2024 End: 10-27-2024 take 1 dose by mouth every twelve hours as needed dextromethorphan 30 mg/5 mL oral suspension, extended release Dose : 18 mg = 3 mL, Oral, q12h, PRN for cough, X 10 day(s), # 89 mL, 0 Refill(s), 10/27/24 6:40:00 PM EDT, Pharmacy: [facility], 181.5, cm, 10/17/24 9:44:00 EDT, Height, kg, 10/17/24 9:44:00 EDT, Dosing Weight Start Date: 10/17/24 Stop Date: 10/27/24 Status: Ordered Quantity: 89.0 Unit: mL Repeat number: 1 Start: 10-17-2024 End: 10-27-2024 take 1 dose by mouth every six hours as needed dextromethorphan 20 mg/15 mL oral syrup Dose : 30 mg = 22.5 mL, Oral, q6h, PRN as needed for cough, X 10 day(s), # 120 mL, 0 Refill(s), 10/27/24 10:24:00 AM EDT, Pharmacy: [facility], Cough, 181.5, cm, 10/17/24 9:44:00 EDT, Height, kg, 10/17/24 9:44:00 EDT, Dosing Weight Start Date: 10/17/24 Stop Date: 10/27/24 Status: Ordered Quantity: 120.0 Unit: mL Repeat number: 1 Indications: Cough, unspecified; dofetilide 0.25 mg oral capsule (20 sources) Antiarrhythmic Start: 12-26-2024 End: 12-30-2024 take 1 capsule by mouth twice daily dofetilide (TIKOSYN) 250 mcg capsule Take 1 capsule by mouth two times a day. 180 capsule 12/30/2024 Active Start: 09-08-2024 End: 12-30-2024 take 1 capsule by mouth twice daily Dofetilide 125 mcg capsule Active 250 ug PO TWICE A DAY December 30, 2024 1:38pm Start: 04-24-2022 dofetilide 125 mcg oral capsule Dose : 125 mcg = 1 cap(s), Oral, BID, # 180 cap(s), 0 Refill(s) Start Date: 04/24/22 Status: Ordered Quantity: 180.0 Unit: cap(s) Repeat number: 1 Start: 02-11-2022 End: 07-07-2024 take 1 capsule by mouth twice daily dofetilide (TIKOSYN) 125 mcg capsule Indications: Paroxysmal atrial fibrillation (HCC) Take 1 capsule by mouth two times a day. 180 capsule 07/07/2024 Active Comment on above: Take 1 capsule by mo [facility] twice daily. take 1 capsule by mo [facility] twice a day TAKE 1 CAPSULE BY MO [facility] TWICE DAILY esomeprazole 40 mg delayed release oral capsule (10 sources) Proton Pump Inhibitor Start: 11-17-2024 Esomeprazole Magnesium 40 mg capsule,delayed release(DR/EC) Active 40 mg PO TWICE A DAY 60 1 November 17, 2024 12:00am Take 30minutes before eating breakfast and supper. take 1 capsule by mo [facility] once daily before breakfast esomeprazole (NEXIUM) 40 mg capsule Take 40 mg by mouth daily before breakfast. Active famotidine 40 mg oral tablet (11 sources) Histamine-2 Receptor Antagonist Start: 08-19-2024 take 1 tablet by mouth at bedtime Famotidine 40 mg tablet Active 40 mg PO AT BEDTIME 12 06November 17, 2024 12:00am finasteride 5 mg oral tablet (20 sources) 5-alpha Reductase Inhibitor Start: 10-26-2017 End: 08-14-2025 finasteride (PROSCAR) 5 mg tablet once daily. 10/26/2017 Active Comment on above: once daily. fluticasone propionate 0.05 mg/actuat metered dose nasal spray (3 sources) Corticosteroid Start: 03-17-2024 End: 02-15-2025 take 100 ug nasal route once daily fluticasone 50 mcg/inh NASAL spray 100 mcg Dose = 2 spray(s), Nostril, each, qDay, shake well before using, # 16 gram(s), 0 Refill(s), Pharmacy: [facility], Acute rhinosinusitis, 181.5, cm, 08/19/24 9:28:00 EDT, Height, kg, 10/10/24 13:40:00 EDT, Dosing Weight Start Date: 10/10/24 Stop Date: 11/09/24 Status: Ordered Quantity: 16.0 Unit: g Repeat number: 1 Indications: Acute sinusitis, unspecified; fluticasone / salmeterol (6 sources) Corticosteroid, beta2-Adrenergic Agonist Start: 12-02-2024 take 1 puff(s) by inhalation twice daily fluticasone-salm eterol (ADVAIR DISKUS) 100-50 mcg/dose inhaler Inhale 1 puff as instructed two times a day. 12/02/2024 Active Start: 12-02-2024 take 1 puff(s) by in halation twice daily fluticasone-salmeterol (ADVAIR DISKUS) 100-50 mcg/dose inhaler Inhale 1 puff as instructed two times a day. 12/02/2024 Suspended 30 actuat fluticasone furoate 0.1 mg/actuat / vilanterol 0.025 mg/actuat dry powder inhaler (10 sources) Corticosteroid, beta2-Adrenergic Agonist Start: 11-17-2024 Fluticasone Furoate-Vilanterol (Breo Ellipta) 100-25 mcg/dose blister with device Active 1 NMA INHALATION daily November 17, 2024 12:00am fluticasone-amy nterol (BREO ELLIPTA) 100-25 mcg/dose inhaler Inhale 1 inhalation as instructed once daily. Active hydroCHLOROthiazide 25 mg oral tablet (11 sources) Thiazide Diuretic Start: 01-13-2022 End: 02-12-2022 take 1 tablet by mouth once daily hydroCHLOROthiazide (HYDRODIURIL, ESIDRIX) 25 mg tablet Take 1 tablet by mouth once daily. 30 tablet 0 01/13/2022 02/12/2022 Active Start: 10-19-2020 hydroCHLOROthi azide 25 mg oral tablet Dose : 25 mg = 1 tab(s), Oral, qDay, # 90 tab(s), 3 Refill(s), [facility], Hypertension, 181, cm, 10/19/20 13:25:00 EDT, Height, kg, 10/19/20 13:25:00 EDT, Dosing Weight Start Date: 10/19/20 Status: Ordered Comment on above: Take 1 tablet by sarah th once daily. levocetirizine dihydrochloride 5 mg oral tablet (4 sources) Histamine-1 Receptor Antagonist Start: 01-29-20 Xyzal 5 mg oral tablet Dose : 5 mg = 1 tab(s), Oral, qHS, # 90 tab(s), 3 Refill(s), [facility], Seasonal allergies, 180, cm, 01/18/21 13:19:00 EDT, Height, kg, 01/18/21 13:19:00 EDT, Dosing Weight Start Date: 01/28/21 Status: Ordered loperamide hydrochloride 2 mg oral capsule (20 sources) Opioid Agonist Start: 06-01-19 End: 12-27-19 loperamide 2 mg oral capsule Dose : 2 mg = 1 cap(s), Oral, q4h, PRN as needed for loose stool, # 180 cap(s), 5 Refill(s), [id number], 180, cm, 04/24/22 13:04:00 EST, Height Start Date: 04/24/22 Stop Date: 10/21/22 Status: Ordered Comment on above: Take 2 mg by mouth f our times daily as needed for diarrhea. loratadine 10 mg oral tablet (3 sources) Start: 02-18-20 loratadine 10 mg oral tablet Dose : 10 mg = 1 tab(s), Oral, qDay, # 90 tab(s), 0 Refill(s), Pharmacy: [facility], Seasonal allergies, 181.5, cm, 08/19/24 9:28:00 EDT, Height, kg, 10/10/24 13:40:00 EDT, Dosing Weight Start Date: 10/10/24 Status: Ordered Quantity: 90.0 Unit: tab(s) Repeat number: 1 Indications: Other seasonal allergic rhinitis; LORazepam 0.5 mg oral tablet (20 sources) Benzodiazepine Start: 07-26-19 End: 10-19-19 take 1 tablet by mouth once daily as needed for anxiety Lorazepam 0.5 MG tablet Active 0.5 mg PO DAILY NEEDED as needed for Anxiety July 26, 2019 12:00am Comment on above: Take 0.5 mg by mouth as needed. losartan potassium 25 mg oral tablet (20 sources) Angiotensin 2 Receptor Naomi Start: 01-15-20 End: 11-19-19 take 1 tablet by mouth once daily losartan (COZAAR) 25 mg tablet Take 1 tablet by mouth once daily. 30 tablet 01/14/2022 Active Start: 07-26-2019 take 1 tablet by mouth once da eboni Losartan 100 MG tablet Active 100 mg PO DAILY July 26, 2019 12:00am Comment on above: Take 1 tablet by sarah th once daily. Multiple Vitamins oral capsule (7 sources) Start: 08-01-2018 take 1 tablet by mouth once daily in the morning Multiple Vitamins oral capsule Dose = 1 tab(s), Oral, qAM, # 90 cap(s), 0 Refill(s) Start Date: 08/01/18 Status: Ordered Quantity: 90.0 Unit: cap(s) Repeat number: 1 Start: 08-01-2018 take 1 tablet by sarah th once daily in the morning Multiple Vitamins oral capsule Dose = 1 tab(s), Oral, qAM, # 90 cap(s), 0 Refill(s) Start Date: 08/01/18 Status: Ordered Nasacort Allergy 24HR 55 mcg/inh nasal spray (3 sources) Start: 01-18-2021 take 1 dose nasal route once daily Nasacort Allergy 24HR 55 mcg/inh nasal spray Dose = 2 spray(s), Nostril, each, qDay, # 3 EA, 3 Refill(s), Pharmacy: [address], Seasonal allergies, 180, cm, 01/18/21 13:19:00 EDT, Height, kg, 01/18/21 13:19:00 EDT, Dosing Weight Start Date: 01/18/21 Status: Ordered pantoprazole 40 mg delayed release oral tablet (12 sources) Proton Pump Inhibitor Start: 11-03-2024 End: 11-17-2024 take 1 tablet by mouth once daily pantoprazole DR (PROTONIX) 40 mg tablet Take 40 mg by mouth once daily. 11/03/2024 Active predniSONE 10 mg oral tablet (1 source) Start: 10-17-2024 End: 11-02-2024 take 4 tablets by mouth once daily, then take 3 tablets by mouth once daily, then take 2 tablets by mouth once daily, then take 1 tablet by mouth once daily, then take 0.5 tablet by mouth once daily prednisone 10mg tab (TAPER) Taper 52-93-19-10-5 mg, Oral, Daily, Take 4 tabs daily x 5days, then 3 tabs daily x 3days, then 2 tabs daily x 3days,then 1 tab daily x 3days,then 1/2 tab daily x 4 days, # 40 tab(s), 0 Refill(s), Pharmacy: [facility], Cough, 181.5, cm, 10/17/24 9:44:00 EDT, Height, kg, 10/17/24 9:44:00 EDT, Dosing Weight Start Date: 10/17/24 Stop Date: 11/02/24 Status: Ordered Quantity: 40.0 Unit: tab(s) Repeat number: 1 Indications: Cough, unspecified; tamsulosin hydrochloride 0.4 mg oral capsule (20 sources) alpha-Adrenergic Naomi Start: 01-25-2011 take 1 capsule by mouth once daily at bedtime tamsulosin (FLOMAX) 0.4 mg ORAL Cp24 Take 1 capsule by mouth daily at bedtime. 90 capsule 3 01/25/2011 Active Comment on above: Take 1 capsule by [facility] daily at bedtime. thiamine 100 mg oral tablet (20 sources) Start: 01-13-2022 take 1 tablet by mouth once daily thiamine (VITAMIN B1) 100 mg tablet 1 tablet by ORAL/FEEDING TUBE route once daily. 30 tablet 01/13/2022 Active Start: 01-13-2022 End: 02-12-2022 take 1 tablet by mouth once daily thiamine (VITAMIN B1) 100 mg tablet 1 tablet by ORAL/FEEDING TUBE route once daily. 30 tablet 0 01/13/2022 Active Comment on above: 1 tablet by ORAL/FEE DING TUBE route once daily. triamcinolone acetonide 0.055 mg/actuat metered dose nasal spray (10 sources) Corticosteroid Start: End: take 2 spray(s) by inhalation once daily triamcinolone acetonide (NASACORT AQ) 55 mcg nasal inhaler Use 2 Sprays in the nose once daily. 16.9 mL 0 01/13/2022 03/14/2022 Active Start: 11-25-2021 End: 12-09-2021 triamcinolone 0.1% topical c ream Apply 1 miquel, Topical, TID, X 14 day(s), # 15 gram(s), 0 Refill(s), Pharmacy: [address], 182, cm, 11/25/21 14:39:00 EDT, Height, 114.8 Start Date: 11/25/21 Stop Date: 12/09/21 Status: Ordered Comment on above: Use 2 Sprays in the nose once daily. Vitamin B-12 1000 mcg sublingual lozenge (4 sources) Start: 11-25-2018 take 1 dose under the tongue once daily Vitamin B-12 1000 mcg sublingual lozenge Dose : 1,000 mcg = 1 lozenge(s), Sublingual, qDay, # 50 lozenge(s), 0 Refill(s) Start Date: 11/25/18 Status: Ordered Quantity: 50.0 Unit: lozenge(s) Repeat number: 1 Start: 11-25-2018 take 1 dose under th e tongue once daily Vitamin B-12 1000 mcg sublingual lozenge Dose : 1,000 mcg = 1 lozenge(s), Sublingual, qDay, # 50 lozenge(s), 0 Refill(s) Start Date: 11/25/18 Status: Ordered Vitamin B1 100 mg oral table t (3 sources) Start: 04-24-2022 Vitamin B1 100 mg oral tablet Dose : 100 mg = 1 tab(s), Oral, Daily, 0 Refill(s) Start Date: 04/24/22 Status: Ordered Repeat number: 1 Start: 04-24-2022 Vitamin B1 100 mg oral tablet Dose : 100 mg = 1 tab(s), Oral, Daily, 0 Refill(s) Start Date: 04/24/22 Status: Ordered vitamin b12 1 mg oral lozenge (3 sources) Vitamin B12 Start: 11-25-2018 take 1 dose under the tongue once daily Vitamin B-12 1000 mcg sublingual lozenge Dose : 1,000 mcg = 1 lozenge(s), Sublingual, qDay, # 50 lozenge(s), 0 Refill(s) Start Date: 11/25/18 Status: Ordered Completed/Discontinued Medications Medication Drug Class(es) Dates Sig (Normalized) Sig (Original) amoxicillin 875 mg / clavulanate 125 mg oral tablet (3 sources) Penicillin-class Antibacterial Start: 01-13-2022 End: 01-20-2022 take 1 tablet by mouth every twelve hours amoxicillin-clavul anic acid (AUGMENTIN) 875-125 mg per tablet Take 1 tablet by mouth every 12 hours for 13 doses. 13 tablet 0 01/13/2022 01/20/2022 Comment on above: Take 1 tablet by sarah th every 12 hours for 13 doses. bicalutamide 50 mg oral tablet (12 sources) Androgen Receptor Inhibitor Start: 07-26-2019 End: 11-17-2024 take 1 tablet by mouth once daily Bicalutamide 50 MG tablet Discontinued 50 mg PO DAILY July 26, 2019 12:00am November 17, 2024 2:16pm 24 hr metoprolol succinate 25 mg extended release oral tablet (20 sources) beta-Adrenergic Naomi Start: 02-12-2022 End: 12-30-2024 take 2 tablets by mouth once daily Metoprolol Succinate 25 mg tablet extended release 24 hr Discontinued 12.5 mg PO DAILY November 17, 2024 2:15pm December 30, 2024 1:39pm Start: 01-23-2022 Metoprolol Suc cinate ER 25 mg oral TABLET extended release Dose : 12.5 mg = 0.5 tab(s), Oral, qDay, # 90 tab(s), 0 Refill(s) Start Date: 01/23/22 Status: Ordered Quantity: 90.0 Unit: tab(s) Repeat number: 1 Start: 04-19-2021 Toprol-XL 25 m g oral tablet, extended release Dose : 75 mg = 3 tab(s), Oral, BID, # 540 tab(s), 3 Refill(s), Pharmacy: [facility], 181.5, cm, 04/19/21 14:44:00 EST, Height, kg, 04/19/21 14:44:00 EST, Dosing Weight Start Date: 04/19/21 Status: Ordered Start: 11-05-2020 Toprol-XL 25 m g oral tablet, extended release Dose : 75 mg = 3 tab(s), Oral, BID, # 540 tab(s), 3 Refill(s), [facility]: [facility], 181, cm, 10/19/20 13:25:00 EDT, Height, kg, 10/19/20 13:25:00 EDT, Dosing Weight Start Date: 11/05/20 Status: Ordered Start: 07-26-2019 End: 11-17-2024 take 1 tablet by mouth once daily Metoprolol Succinate 25 MG tablet Discontinued 25 mg PO DAILY July 26, 2019 12:00am November 17, 2024 2:17pm Comment on above: Take 1 tablet by sarah th once daily. Take 2 tablets by mo [facility] once daily. Take 0.5 tablets by mouth once daily. spironolactone 25 mg oral tablet (13 sources) Aldosterone Antagonist Start: 07-26-19 End: 11-18-19 take 1 tablet by mouth once daily Spironolactone 25 MG tablet Discontinued 25 mg PO DAILY July 26, 2019 12:00am November 17, 2024 2:17pm warfarin sodium 7.5 mg oral tablet (20 sources) Vitamin K Antagonist Start: 01-15-20 End: 01-21-20 take 1 tablet by mouth once warfarin (COUMADIN) 7.5 mg tablet Take 1 tablet by mouth every Sunday,Sunday,,Sunday. 16 tablet 0 01/14/2022 01/20/2022 Discontinued Start: 01-13-2022 End: 01-20-2022 take 0.5 tablet by mouth once warfarin (COUMADIN) 7.5 mg tablet Take 0 .5 tablets by mouth every Sunday,Sunday,Sunday. 6 tablet 0 01/13/2022 01/20/2022 Discontinued Start: 01-28-2021 warfarin 7.5 m g oral tablet See Instructions, Take 1 tab orally 6 days of the week., # 90 tab(s), 3 Refill(s), Pharmacy: [facility], Anticoagulant long-term use, 180, cm, 01/18/21 13:19:00 EDT, Height, kg, 01/18/21 13:19:00 EDT, Dosing Weight Start Date: 01/28/21 Status: Ordered Start: 01-18-2021 take 1 tablet by sarah th once daily warfarin 5 mg oral tablet See Instructions, Take 1 tab p.o. on 1 day of the week, # 30 tab(s), 0 Refill(s), [facility]: [facility] 180, cm, 01/18/21 13:19:00 EDT, Height, kg, 01/18/21 13:19:00 EDT, Dosing Weight Start Date: 01/18/21 Status: Ordered Start: 07-26-2019 End: 11-17-2024 Warfarin 5 MG tablet Discont inued 5 mg PO .COMPLEX July 26, 2019 12:00am November 17, 2024 2:14pm 7.5mg mwf, 5.0mg every other day Comment on above: Take 1 tablet by sarah th every Sunday,Sunday,,Sunday. Take 0.5 tablets by mouth every Sunday,Sunday,Sunday. Problems Active Problems Problem Classification Problem Date Documented Date Episodic/Chronic Abdominal pain (17 sources) Abdominal pain; Translations: [Unspecified abdominal pain] Onset: 12-01-2024 11-17-2024 Episodic Alcohol-related disorders (20 sources) Alcohol abuse; Translations: [Alcohol abuse, uncomplicated] Onset: 09-15-2016 01-08-2022 Chronic Anxiety disorders (7 sources) Chronic anxiety 12-03-2019 Chronic Aortic; peripheral; and visceral artery aneurysms (20 sources) Aneurysm of ascending aorta; Translations: [Ascending aorta dilatation] Onset: 06-18-2023 10-15-2019 Chronic Comment on above: 01/09/2019: CT chest: Ascending aorta 4.8 cm, not significantly changed. 01/29/2017: CT chest: Ascending aortic aneurysm measuring 4.9 cm 05/23/2016: CT chest: Aortic root 3.1 cm, proximal ascending aorta 4.1 cm, mid ascending aorta 4.5 cm and distal ascending aorta 4.2 cm. 10/03/2013: CT chest: Ascending thoracic aortic aneurysm measuring 4.5 cm Cancer of prostate (20 sources) Malignant tumor of prostate; Translations: [Malignant neoplasm of prostate] Onset: 09-12-2007 10-15-2019 Chronic Cardiac dysrhythmias (20 sources) Paroxysmal atrial fibrillation; Translations: [Paroxysmal atrial fibrillation] Onset: 09-15-2016 10-14-2019 Chronic Comment on above: [id number] score o f at least 2 (age, gender, HTN) Cardiac dysrhythmias (7 sources) Bradycardia 11-22-2018 Episodic Chronic kidney disease (20 sources) Chronic kidney disease stage 3A ; Translations: [Stage 3a chronic kidney disease] Onset: 01-11-2022 01-11-2022 Chronic Chronic obstructive pulmonary disease and bronchiectasis (20 sources) Pulmonary emphysema; Translations: [Acute exacerbation of chronic obstructive airways disease] Onset: 01-07-2022 08-09-2015 Chronic Congestive heart failure; nonhypertensive (13 sources) Chronic diastolic heart failure; Translations: [Chronic diastolic (congestive) heart failure] Onset: 10-17-2024 07-01-2021 Chronic Coronary atherosclerosis and other heart disease (2 sources) Coronary arteriosclerosis; Translations: [Atherosclerotic heart disease of [place] coronary artery without angina pectoris] 03-16-2023 Chronic Disorders of lipid metabolism (20 sources) Dyslipidemia; Translations: [Mixed hyperlipidemia] Onset: 10-17-2024 10-15-2019 Chronic Comment on above: 09/25/2018: Total cho lesterol 180, triglycerides 64, HDL 57 and LDL 110 E Codes: Fall (1 source) Unspecified fall, initial encounter; Translations: [Fall, initial encounter] Onset: 03-19-2024 Episodic Esophageal disorders (13 sources) Gastroesophageal reflux disease; Translations: [Gastro-esophageal reflux disease without esophagitis] Onset: 10-17-2024 06-29-2021 Chronic Essential hypertension (20 sources) Hypertensive disorder; Translations: [Essential hypertension] 10-15-2019 Chronic Fluid and electrolyte disorders (7 sources) Hypokalemia 01-21-2019 Episodic Gastritis and duodenitis (1 source) Gastritis 08-19-2024 Episodic Heart valve disorders (20 sources) Mitral valve regurgitation; Translations: [Aortic incompetence, non-rheumatic ] Onset: 06-01-2022 10-15-2019 Chronic Comment on above: Mild per echo done i n September 2016 Heart valve disorders (1 source) Heart murmur; Translations: [Cardiac murmur, unspecified] 12-30-2024 Episodic Hyperplasia of prostate (9 sources) Benign prostatic hypertrophy with outflow obstruction; Translations: [Benign prostatic hyperplasia] 07-16-2020 Chronic Malaise and fatigue (2 sources) Fatigue; Translations: [Other fatigue] 03-09-2023 Episodic Malignant neoplasm without specification of site (4 sources) Malignant tumor of unknown origin; Translations: [Malignant (primary) neoplasm, unspecified] Onset: 12-30-2024 12-30-2024 Chronic Noninfectious gastroenteritis (5 sources) Colitis 01-24-2017 Episodic Comment on above: SAID HE GOT AFTER RA DIATION FOR PROSTATE CANCER Nutritional deficiencies (4 sources) Vitamin D deficiency; Translations: [Vitamin D deficiency, unspecified] Onset: 11-20-2024 03-09-2023 Chronic Nutritional deficiencies (2 sources) Iron deficiency; Translations: [Iron deficiency] 03-09-2023 Episodic Open wounds of head; neck; and trunk (1 source) Laceration without foreign body of other part of head, initial encounter; Translations: [Facial laceration, initial encounter] Onset: 03-19-2024 Episodic Osteoarthritis (3 sources) Degenerative joint disease of hand; Translations: [Arthritis] 01-22-2023 Chronic Other aftercare (10 sources) Patient encounter status; Translations: [Encounter for therapeutic drug level monitoring] Onset: 06-01-2022 06-01-2022 Episodic Other aftercare (20 sources) Long-term current use of drug therapy; Translations: [Encounter for therapeutic drug level monitoring] Onset: 06-01-2022 12-18-2023 Episodic Other circulatory disease (4 sources) Disorder of thoracic aorta; Translations: [Other specified disorders of arteries and arterioles] 04-04-2024 Chronic Other circulatory disease (2 sources) Other specified disorders of arteries and arterioles; Translations: [Enlarged thoracic aorta] Onset: 07-07-2024 Chronic Other connective tissue disease (7 sources) Triggering of digit 12-03-2019 Episodic Other ear and sense organ disorders (20 sources) Bilateral hearing loss; Translations: [Unspecified hearing loss, bilateral] Onset: 09-15-2016 09-16-2016 Chronic Other ear and sense organ disorders (1 source) Hearing loss; Translations: [Unspecified hearing loss, unspecified ear] 12-30-2024 Chronic Other injuries and conditions due to external causes (1 source) Unspecified injury of head, initial encounter; Translations: [Injury of head, initial encounter] Onset: 03-19-2024 Episodic Other liver diseases (7 sources) Liver mass; Translations: [Hepatomegaly, not elsewhere classified] 11-25-2024 Episodic Other liver diseases (3 sources) Hepatomegaly, not elsewhere classified; Translations: [Hepatomegaly, not elsewhere classified] Onset: 12-29-2024 Episodic Other lower respiratory disease (20 sources) Dyspnea; Translations: [Dyspnea, unspecified] 05-09-2021 Episodic Other lower respiratory disease (1 source) Cough; Translations: [Cough, unspecified type] 10-20-2024 Episodic Other lower respiratory disease (2 sources) Chronic cough; Translations: [Chronic cough] Onset: 11-20-2024 11-20-2024 Episodic Other male genital disorders (7 sources) Impotence 02-25-2019 Chronic Other nervous system disorders (1 source) Peripheral nerve disease 08-19-2024 Chronic Other nervous system disorders (7 sources) Neurogenic claudication 12-03-2019 Episodic Other nutritional; endocrine; and metabolic disorders (12 sources) Obese class I; Translations: [Obesity, Class I, BMI 30-34.9] Onset: 12-25-2024 04-19-2021 Chronic Other nutritional; endocrine; and metabolic disorders (20 sources) Body mass index 30+ - obesity; Translations: [Obesity, unspecified] Onset: 01-07-2022 01-08-2022 Chronic Other nutritional; endocrine; and metabolic disorders (5 sources) Overweight 06-29-2021 Episodic Other skin disorders (2 sources) Actinic keratosis 07-24-2022 Episodic Other skin disorders (2 sources) Multiple skin tags 08-08-2023 Episodic Other upper respiratory disease (7 sources) Seasonal allergy 12-30-2020 Chronic Otitis media and related conditions (20 sources) Chronic mastoiditis; Translations: [Chronic mastoiditis, unspecified ear] Onset: 09-15-2016 09-15-2016 Chronic Otitis media and related conditions (5 sources) Acute non-suppurative otitis media - serous 01-18-2021 Episodic Residual codes; unclassified (20 sources) Obstructive sleep apnea syndrome; Translations: [Obstructive sleep apnea (adult) (pediatric)] Onset: 01-07-2022 10-15-2019 Chronic Residual codes; unclassified (4 sources) Sleep apnea 06-29-2021 Chronic Residual codes; unclassified (1 source) Obstructive sleep apnea (adult) (pediatric); Translations: [Obstructive sleep apnea] Onset: 10-20-2024 Chronic Residual codes; unclassified (4 sources) Edema of foot 01-21-2019 Episodic Residual codes; unclassified (1 source) Edema of lower extremity; Translations: [Localized edema] Episodic Secondary malignancies (2 sources) Secondary malignant neoplasm of lung; Translations: [Secondary malignant neoplasm of unspecified lung] 12-30-2024 Chronic Secondary malignancies (2 sources) Secondary malignant neoplasm of liver; Translations: [Secondary malignant neoplasm of liver and intrahepatic bile duct] 12-30-2024 Chronic Secondary malignancies (2 sources) Secondary malignant neoplasm of unspecified lung; Translations: [Secondary malignant neoplasm of unspecified lung] Onset: 12-30-2024 Chronic Secondary malignancies (2 sources) Secondary malignant neoplasm of liver and intrahepatic bile duct; Translations: [Secondary malignant neoplasm of liver and intrahepatic bile duct] Onset: 12-30-2024 Chronic Spondylosis; intervertebral disc disorders; other back problems (7 sources) Low back pain 12-03-2019 Episodic Unclassified (6 sources) Continuous positive airway pressure ventilation weaning protocol 01-24-2017 Unclassified (3 sources) Anticoagulant effect 04-19-2021 Unclassified (4 sources) Patient encounter status 11-25-2021 Unclassified (1 source) Seborrheic keratosis 08-19-2024 Unclassified (1 source) Other persistent atrial fibrillation; Translations: [Persistent atrial fibrillation (HCC)] Onset: 12-23-2024 Unclassified (1 source) Longstanding persistent atrial fibrillation; Translations: [Longstanding persistent atrial fibrillation (HCC)] Onset: 02-11-2022 Unclassified (1 source) Cough, unspecified type; Translations: [Cough, unspecified type] Onset: 10-20-2024 Unclassified (1 source) Abdominal aortic aneurysm (AAA) without rupture, unspecified part; Translations: [Abdominal aortic aneurysm (AAA) without rupture, unspecified part] Onset: 10-20-2024 Past or Other Problems Problem Classification Problem Date Documented Date Episodic/Chronic Deficiency and other anemia (20 sources) Anemia; Translations: [Anemia, unspecified] Onset: 01-07-2022 01-08-2022 Episodic Diabetes mellitus without complication (20 sources) Steroid-induced hyperglycemia; Translations: [Hyperglycemia, unspecified] Onset: 01-09-2022 01-09-2022 Episodic Headache; including migraine (20 sources) Chronic headache disorder; Translations: [Chronic headaches] Onset: 09-18-2016 Resolved: 09-18-2016 09-18-2016 Episodic Nonspecific chest pain (20 sources) Chest pain; Translations: [Chest pain, unspecified] Onset: 01-08-2022 06-29-2021 Episodic Other aftercare (20 sources) Long-term current use of anticoagulant; Translations: [alf (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 anticoagulants] Onset: 01-07-2022 04-02-2020 Episodic Other aftercare (19 sources) Anticoagulant effect; Translations: [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 (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 anticoagulants] Onset: 01-07-2022 01-08-2022 Episodic Other aftercare (2 sources) alf (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 anticoagulants; Translations: [Chronic anticoagulation] Onset: 01-03-2024 Episodic Other aftercare (1 source) Encounter for therapeutic drug level monitoring; Translations: [Encounter for monitoring dofetilide therapy] Onset: 06-01-2022 Episodic Other aftercare (1 source) Other half-way (current) drug therapy; Translations: [Encounter for monitoring dofetilide therapy] Onset: 06-01-2022 Episodic Other lower respiratory disease (1 source) Shortness of breath; Translations: [Shortness of breath] Onset: 05-09-2021 Episodic Other screening for suspected conditions (not mental disorders or infectious disease) (20 sources) Other specified abnormal findings of blood chemistry; Translations: [Other abnormal blood chemistry] Onset: 01-07-2022 01-08-2022 Episodic Other upper respiratory infections (20 sources) Acute frontal sinusitis; Translations: [Acute frontal sinusitis, unspecified] Onset: 01-13-2022 01-13-2022 Episodic Results Test Name Value Interpretation Reference Range Facility MR/PATLeela 01-13-2025 MR/PAT.JULIANO ANTONIO [facility] Medical Records Department [address] [place] [address] PAT - Anesthesia 01/13/25 0802 MR#: [id number] Acct: [id number] Name: ANYA KAMAAR Rep #: [id number] : 1950 74 From: Jenaro Shin MD PCP: Dr. Ezekiel Caro, DO Status:PRE SDC Y Race: C Location: EN Pre-Assessment Diagnosis/Proposed Procedure Planned Operative Procedure(s): CSCOPE EGD Anesthesia History Anesthesia History - drafter civil: Anesthesia History - drafter civil Hx Hospitalization Yes: [facility] 4 DAYS ADJUST 01/09/25 15:01 CANCER MED Any Problems With Anesthesia No 01/09/25 15:01 Cholinesterase deficiency No 01/09/25 15:01 You/Your Family Experience No 01/09/25 15:01 fever (hyperthermia) with Relationship Recent Exposure to Contagious Disease Does patient have nerve No 01/09/25 15:01 stimulator Patient instructed to have device shut off --Does patient have Pacemaker or ICD? When Was Last Pacemaker Check QUESTION #4 FULL TEXT: You/Your Family Experience fever (hyperthermia) with Anesthesia Last Oral Intake Last Oral intake: Last Oral Intake NPO since Meds taken in AM with sips of water? Meds patient instructed to take am of surgery PONV PONV - drafter civil: PONV - drafter civil Female No 01/09/25 15:01 HX of Motion Sickness No 01/09/25 15:01 HX of N/V After Surgery No 01/09/25 15:01 Non-Smoker Yes 01/09/25 15:01 Duration of Surgery greater No 01/09/25 15:01 than 60 minutes Number of Risk Factors 1 01/09/25 15:01 PONV Score Low Risk 01/09/25 15:01 Height Weight Height Weight: Anesthesia: Height Weight Height 5 ft 11 in 01/06/25 10:00 Respiratory Assessment Respiratory Assessment - drafter civil: Respiratory Tract Infection Hx - drafter civil Hx Respiratory Tract Infection No 01/09/25 15:01 STOP Sleep Apnea STOP Sleep Apnea - drafter civil: STOP Sleep Apnea - drafter civil Hx Hypertension Yes: CONTROLLED WITH MED AT 01/09/25 15:01 THIS TIME Hx Sleep Apnea No 01/09/25 15:01 CPAP BIPAP Do you snore loudly (louder No 01/09/25 15:01 than talking or can be heard Do you often feel tired/ Yes 01/09/25 15:01 fatigued/ sleepy during daytime? Has anyone observed you stop No 01/09/25 15:01 breathing during sleep? STOP Results Positive 01/09/25 15:01 QUESTION #5 FULL TEXT : Do you snore loudly (louder than talking or can be heard through closed doors)? Tobacco Use History Tobacco Use History - drafter civil: Tobacco Use History - drafter civil Tobacco Use Smoking Status Never smoker 01/09/25 15:01 Hx Tobacco Use No 01/09/25 15:01 Years Smoking Packs Smoked per Day Smoking Cessation Date was within the last 15 years Hx Smoking Cessation Date Hx Smoking Cessation Counseling Hematologic Medial History Hematologic Hx - drafter civil: Hematologic Medical Hx - stuffed casing tier Hx of Blood Transfusion No 01/09/25 15:01 Hx of Transfusion in last 3 No 01/09/25 15:01 Months Date of Last Transfusion (if within last 3 months) Ever experience any problems No 01/09/25 15:01 with transfusion(s)? Specify any problems Hx of Preganancy in last 3 N/A 01/09/25 15:01 Months Nurse Filling Out Transfusion DSCHRIBER 01/09/25 15:01 Questions: Date: 01/09/25 01/09/25 15:01 Time: 15:03 01/09/25 15:01 Patient unable to answer at this time (ie. confused, unrespo /Reproduction History /Reproductive History - drafter civil: /Reproductive Hx- drafter civil Hx Now No 01/09/25 15:01 Gestational Age (in weeks): EDC: Hx Hx Para Hx Section SAB No 01/09/25 15:01 [facility] Medical History (Updated 01/09/25 @ 15:16 by Jessica Willett) Wears hearing aid Wears partial dentures Wears glasses Alcohol use Back pain Radiation burn Gastric reflux Non-smoker Chronic cough Shortness of breath on exertion History of echocardiogram History of stress test Cardiology follow-up encounter Prostate cancer 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 Murmur, heart IBS (irritable bowel syndrome) High blood pressure Cancer Atrial fibrillation Home Medications ???Medication ???Instructions ???Recorded ???Last Taken ???Type finasteride 5 mg tablet 5 mg PO DAILY 07/26/19 Unknown His tory lorazepam 0.5 mg tablet 0.5 mg PO DAILY PRN PRN Anxiety Unknown History losartan 100 mg tablet 100 mg PO DAILY 07/26/19 Unknown H istory tamsulosin 0.4 mg capsule 0.4 mg PO DAILY 07/26/19 Unknown H istory apixaban 5 mg tablet (Eliquis) 5 mg PO BID 11/17/24 Unknown Histo (more content not included)... Normal [facility] CBC W/Diff, Automatedon 12-13 Absolute Lymph 1.44 X10 3/uL Normal 0.83-4.51 [facility] Comment on above: Performed By: #### L 100.0100 #### [facility] [address] [place], [address] Absolute Neut 3.9 X10 3/uL Normal 2.0-7.7 [facility] Comment on above: Performed By: #### L 100.0100 #### [facility] [address] [place], [address] Basophils/100 WBC (Bld) 0.8 % Normal 0-1 [facility] Comment on above: Performed By: #### L 100.0100 #### [facility] [address] [place], [address] Eosinophils/100 WBC (Bld) 1.9 % Normal 0-5 [facility] Comment on above: Performed By: #### L 100.0100 #### [facility] [address] [place], [address] Erythrocyte distribution width (RBC) [Ratio] 13.6 % Normal 11.6-14.6 [facility] Comment on above: Performed By: #### L 100.0100 #### [facility] [address] [place], [address] Hematocrit (Bld) [Volume fraction] 38.4 % Low 40-54 [facility] Comment on above: Performed By: #### L 100.0100 #### [facility] [address] [place], [address] Hemoglobin (Bld) [Mass/Vol] 12.4 g/dL Low 13.0-16.5 [facility] Comment on above: Performed By: #### L 100.0100 #### [facility] [address] [place], [address] IG% 0.600 Normal 0.0-0.9 [facility] Comment on above: Result Comment: IG% - Immature Granulocytes (promyelocytes, myelocytes and metamyelocytes) > 1% indicates that a LEFT SHIFT is Present. Performed By: #### L 100.0100 #### [facility] [address] [place], [address] Lymphocytes/100 WBC (Bld) 22.3 % Normal 19-41 [facility] Comment on above: Performed By: #### L 100.0100 #### [facility] [address] [place], [address] MCH (RBC) [Entitic mass] 29.8 pg Normal 27.0-32.0 [facility] Comment on above: Performed By: #### L 100.0100 #### [facility] [address] [place], [address] MCHC (RBC) [Mass/Vol] 32.3 g/dL Normal 32-36 [facility] Comment on above: Performed By: #### L 100.0100 #### [facility] [address] [place], [address] MCV (RBC) [Entitic vol] 92.3 fL Normal 80-94 [facility] Comment on above: Performed By: #### L 100.0100 #### [facility] [address] [place], [address] Monocytes/100 WBC (Bld) 13.5 % High 0-10 [facility] Comment on above: Performed By: #### L 100.0100 #### [facility] [address] [place], [address] Neutrophils/100 WBC (Bld) 60.9 % Normal 47-70 [facility] Comment on above: Performed By: #### L 100.0100 #### [facility] [address] [place], [address] Nucleated RBC (Bld) [#/Vol] 0 10*3/uL Normal 0-5 [facility] Comment on above: Performed By: #### L 100.0100 #### [facility] [address] [place], [address] Platelet mean volume (Bld) [Entitic vol] 9.0 fL Normal 6.2-12.0 [facility] Comment on above: Performed By: #### L 100.0100 #### [facility] [address] [place], [address] Platelets (Bld) [#/Vol] 274 10*3/uL Normal 150-450 [facility] Comment on above: Performed By: #### L 100.0100 #### [facility] [address] [place], [address] RBC (Bld) [#/Vol] 4.16 10*6/uL Low 4.6-6.2 [facility] Comment on above: Performed By: #### L 100.0100 #### [facility] [address] [place], [address] RDW SD 46.0 fl High 35.1-43.9 [facility] Comment on above: Performed By: #### L 100.0100 #### [facility] [address] [place], [address] WBC (Bld) [#/Vol] 6.5 10*3/uL Normal 4.4-11.0 [facility] Comment on above: Performed By: #### L 100.0100 #### [facility] [address] [place], [address] Liver Biopsy Ultrasoundon Liver Biopsy Ultrasound [facility] Imaging Services [address] [place] [address] Liver Biopsy Ultrasound MR#: [id number] Acct: [id number] Name: ANYA KAMARA Rep #: [id number] : 1950 M 74 From: Geovany Gutiérrez PCP: Dr. Caleb Mccurdy, DO Status: [facility] CLI Study: Liver Biopsy Ultrasound Date of Exam: 01/06/25 Exam# [id number] Ordering Dr: Trena Esetban MD PROCEDURE: LIVER BIOPSY ULTRASOUND 01/06/2025 REASON FOR EXAM: HEPATOMEGALY Numerous hepatic metastases seen on CT. PROCEDURE: Conscious sedation was employed during the procedure, with start time of 1129 hours and stop time of 1153 hours. Intravenous administration of a total of 3 mg Versed and 50 mcg fentanyl was used. Following informed consent, and using standard sterile technique, ultrasound-guided core biopsy of a large right inferior hepatic mass was performed. 2% lidocaine local anesthesia was followed by placement of a 15 cm 18 gauge CorVocet core biopsy system. A total of 5 core samples were then obtained, and presented to pathology. Postcontrast imaging was then obtained. No complication was encountered, and the patient left the department in good condition without significant complaint. US/Liver Biopsy Ultrasound IMPRESSION: Successful ultrasound-guided right hepatic core biopsy. Pathology results pending. Reading Location: [place] [address] CC: Dr. Trena Esteban MD; Dr. Caleb Mccurdy, DO [place] Maker: Signed Normal [facility] Partial Thromboplast Timeon 01-06-2025 aPTT Coag (Bld) [Time] 30.6 s Normal 24.1-36.2 [facility] Comment on above: Performed By: #### L 300.4310, L300.3900 ####[facility] [address] [place], [address] Prothrombin Time w/INRon INR Coag (PPP) [Relative time] 0.9 {INR} Normal [facility] Comment on above: Performed By: #### L 300.4310, L300.3900 ####[facility] [address] [place], [address] PT Coag (PPP) [Time] 12.8 s Normal 11.7-14.9 [facility] Comment on above: Performed By: #### L 300.4310, L300.3900 ####[facility] [address] [place], [address] CNPNon 12-31-2024 CNPN Telephone (Fetch MD) -- ANYA KAMARA ([id number]) 1950 M AVELINA Date Time Provider Department 8/20/25 JOSELYN REYES During your visit today, we recorded the following information about you: Aden Yuan LPN 12/31/2024 1:[address] [facility] received via fax. FERNANDO 11/20/24 Arturo Last Agricultural Research Engineer MD visit 06/01/22 Dr Pillai Form placed on desk of Cristian Reyes CNP for review. Aden Yuan LPN 01/01/2025 11:16 AM Signed Form signed, return faxed, and fax confirmation received. Placed in PSS basket for scanning. Evelyn Gaming 01/01/2025 11:19 AM Signed Scan on 01/01/2025 11:18 AM by Evelyn Gaming: [facility] Allergies As of Date: 12/31/2024 Noted Allergy Reaction PERCOCET (OXYCODONE-ACETAMINOPHEN)0 09/15/2016 9 - Itching Comments: Pt took 2 doses close together (per patient) Date Reviewed: 12/26/2024 Reviewed by: Rios Hernandez, RN - Fully Assessed Reason for Visit: Forms [913] Cmt: [facility] Prescriptions as of 01/05/2025 - dofetilide [...] 01/07/2022 Obesity (BMI 35.0-39.9 without comorbidity) [E6*01/07/2022 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 current use of anticoagulant [Z79.01] 01/07/2022 Elevated [...] Encounter Status:Closed by ADEN YUAN on 01/05/25 Normal [facility] minesh 12-30-2024 Albumin [Mass/Vol] 4.0 g/dL Normal 3.4-4.8 [facility] Comment on above: Performed By: #### L 501.9940, L500.4050 #### [facility] [address] [place], [address] Albumin/Globulin [Mass ratio] 1.4 {ratio} Normal 0.9-2.4 [facility] Comment on above: Performed By: #### L 501.9940, L500.4050 #### [facility] [address] [place], [address] ALK PHOS 407 U/L High 40-129 [facility] Comment on above: Performed By: #### L 501.9940, L500.4050 #### [facility] [address] [place], [address] ALT [Catalytic activity/Vol] 56 U/L High <=46 [facility] Comment on above: Performed By: #### L 501.9940, L500.4050 #### [facility] [address] [place], [address] AST [Catalytic activity/Vol] 52 U/L High <=37 [facility] Comment on above: Performed By: #### L 501.9940, L500.4050 #### [facility] [address] [place], [address] Bilirubin [Mass/Vol] 0.71 mg/dL Normal 0.00-1.30 [facility] Comment on above: Performed By: #### L 501.9940, L500.4050 #### [facility] [address] [place], [address] BUN/CRE 17.0 RATIO Normal 10-20 [facility] Comment on above: Performed By: #### L 501.9940, L500.4050 #### [facility] [address] [place], [address] Calcium [Mass/Vol] 9.7 mg/dL Normal 7.6-11.0 [facility] Comment on above: Performed By: #### L 501.9940, L500.4050 #### [facility] [address] [place], [address] Chloride [Moles/Vol] 102 mmol/L Normal 98-108 [facility] Comment on above: Performed By: #### L 501.9940, L500.4050 #### [facility] [address] [place], [address] CO2 [Moles/Vol] 24.6 mmol/L Normal 21.0-32.0 [facility] Comment on above: Performed By: #### L 501.9940, L500.4050 #### [facility] [address] [place], [address] Creatinine [Mass/Vol] 1.15 mg/dL Normal 0.70-1.20 [facility] Comment on above: Performed By: #### L 501.9940, L500.4050 #### [facility] [address] [place], [address] GAP 12 Normal 5-15 [facility] Comment on above: Performed By: #### L 501.9940, L500.4050 #### [facility] [address] [place], [address] GFR/1.73 sq M.predicted among non-blacks MDRD (S/P/Bld) [Vol rate/Area] 66 mL/min/{1.73_m2} Normal >60 [facility] Comment on above: Result Comment: mL/m in/1.73m2 CKD-EPI Creatinine Equation (2020) Performed By: #### L 501.9940, L500.4050 #### [facility] [address] [place], [address] Globulin (S) [Mass/Vol] 2.9 g/dL Normal 2.2-4.2 [facility] Comment on above: Performed By: #### L 501.9940, L500.4050 #### [facility] [address] [place], [address] Glucose [Mass/Vol] 106 mg/dL High 70-99 [facility] Comment on above: Performed By: #### L 501.9940, L500.4050 #### [facility] [address] [place], [address] Potassium [Moles/Vol] 4.4 mmol/L Normal 3.3-5.1 [facility] Comment on above: Performed By: #### L 501.9940, L500.4050 #### [facility] [address] [place], [address] Sodium [Moles/Vol] 139 mmol/L Normal 133-145 [facility] Comment on above: Performed By: #### L 501.9940, L500.4050 #### [facility] [address] [place], [address] T PROT 7.0 g/dL Normal 5.9-8.4 [facility] Comment on above: Performed By: #### L 501.9940, L500.4050 #### [facility] [address] [place], [address] Urea nitrogen [Mass/Vol] 20 mg/dL High 4-19 [facility] Comment on above: Performed By: #### L 501.9940, L500.4050 #### [facility] [address] [place], [address] Oncology Visit Reporton 12-12 Oncology Visit Report [facility] [place] [facility] [address] [place] [address] OFFICE VISIT Date of Service: 12/30/24 1332 MR#: [id number] Acct: [id number] Name: ANYA KAMARA Rep #: [id number] : 1950 From: Trena Esteban MD Age/Sex: 74/M Location: [facility] Status: Signed HPI Subjective Date of Service 12/30/24 Chief Complaint Abdominal pain, metastatic cancer History of Present Illness 74-year-old male past medical history of prostate cancer diagnosed , initially treated in [place], then treated with radiation therapy in 2001 and sometime later with cryoablation. Over the course of the past few years has been receiving intermittent androgen deprivation therapy under the care of Dr. Momin for what appears to be PSA relapse. His last office visit with Dr. Momin dated July 24, 2024 reported that his last Eligard was October 2023. He was in his usual state of health until October - November 2024 when he experienced increasing right upper abdominal pain and was noted to have an elevated alkaline phosphatase. November 25, 2024 abdominal ultrasound: IMPRESSION: The liver has multiple heterogeneous lesions with the appearance of diffuse metastatic disease with a largest in the left hepatic lobe measuring a proximally 8 cm and in the right hepatic lobe measuring approximately 8 cm x [address] correlation is recommended. December 18, 2024 CT chest abdomen and pelvis: IMPRESSION: Extensive lung metastatic disease. Extensive liver metastatic disease. 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 Suspect bladder tumor. Consider cystoscopy. [facility] Medical History (Updated 12/30/24 @ 14:[address] 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 Cancer with unknown primary site Murmur, heart IBS (irritable bowel syndrome) High blood pressure Heart disease Cancer Atrial fibrillation Arthritis Surgical History (Updated 12/30/24 @ 13:44 by Sangita Brewer) History of surgery on arm Hx of vasectomy History of appendectomy Family History (Updated 12/30/24 @ 13:43 by Sangita Brewer) Father Alcoholism Brother Cancer Prostate Aunt Cancer Grandmother Dementia Social History (Updated 12/30/24 @ 13:41 by Sangita Brewer) Smoking Status: Never smoker alcohol intake: current alcohol intake frequency: holidays/special occasions only Alcohol type: wine substance use type: does not use ROS Constitutional Constitutional: Reports systems reviewed and no addt'l complaints, except as documented, weight loss and other Details: Has been actively trying to lose weight and eliminating sugars from his diet because of concerns that sugar feeds cancer ; Denies anorexia or fever(s) Eyes Eyes: Reports systems reviewed and no addt'l complaints, except as documented; Denies change in vision ENT HEENT: Reports systems reviewed and no addt'l complaints, except as documented and hearing loss; Denies headache(s) or mouth lesions Cardiovascular Cardiovascular: Reports systems reviewed and no addt'l complaints, except as documented; Denies chest pain with activity or edema Respiratory/Chest Respiratory/Chest: Reports systems reviewed and no addt'l complaints, except as documented, cough, dyspnea on exertion, hemoptysis and other Details: Had 1 episode of minor hemoptysis following a bout of cough Gastrointestinal Gastrointestinal: Reports systems reviewed and no addt'l complaints, except as documented, as per HPI and abdominal pain; Denies change in bowel habits, dysphagia, hematochezia, melena, nausea or vomiting Genitourinary Genitourinary: Reports systems reviewed and no addt'l complaints, except as documented; Denies hematuria Musculoskeletal Musculoskeletal: Reports systems reviewed and no addt'l complaints, except as documented and arthralgias; Denies back pain Integumentary Integumentary: Reports systems reviewed and no addt'l complaints, except as documented; Denies new lesions Neurologic Neurologic: Reports systems reviewed and no addt'l complaints, except as documented; Denies focal weakness, frequent falls or paresthesias Psychiatric Psychiatric: Reports systems reviewed and no addt'l complaints, except as documented Endocrine Endocrinology: Reports systems reviewed and no addt'l complaints, except as documented Hematologic/Lymphatic Hematologic/Lymphatic: Reports systems reviewed and no addt'l complaints, except as documented Allergic/Immunologic Allergic/Immunologic: Reports systems reviewed and no addt'l complaints, except as documented Intake Vital Signs 12/30/24 13:33 12/30/24 13:44 Height 6 ft 6 ft Weight: 112.094 kg BMI 33.5 BP 116/72 Blood Pressure Location Rt brachial Position Sitting Respiration 18 Pulse 68 Pulse Source M (more content not included)... Normal [facility] PSA,Total- Diagnosticon 12-12 PSA, DIAGNOSTIC 20.30 ng/mL High 0.00-4.00 [facility] Comment on above: Result Comment: This test was performed using the PowerOasis tPSA method. Measured values of a patient??sample can vary depending on the testing procedure used. PSA values determined on patient samples by different testing procedures cannot be used interchangeably. If there is a change in PSA assays while monitoring therapy, sequential testing should be performed to confirm baseline values. Performed By: #### L 501.9940, L500.4050 #### [facility] [address] [place], [address] [facility]) [facility] ALMA ROSAANYA Dilcia ([id number]) 1950 M [facility] Date Time Provider Department 12/29/24 DIO ANAYA [facility] During your visit today, we recorded the [...] low dose Tikosyn. Would rec admission to [facility] main to attempt to up-titrate Tikosyn to 250 mcg BId. Tentatively hold a spot for a redo PVI / atypical AFL RFA in the event that increased Tikosyn fails. Lucinda Please look for a sooner spot for a redo PVI / atypical AFL RFA GA CARTO / farapulse. hold AM Carmella. thanks Maribel Carroll, UMAIR 12/29/2024 6:30 PM Signed Called patient to schedule procedure as requested below, patient stated no ablation, his Tikosyn is working. Explained about Dr. Anaya recommending to get scheduled for ablation tentatively per office notes, patient declined to schedule procedure at this time. No procedure scheduled. Maribel Franco RN, RN Allergies As of Date: 12/29/2024 Noted Allergy Reaction PERCOCET (OXYCODONE-ACETAMINOPHEN)0 09/15/2016 9 - Itching Comments: Pt took 2 [...] 01/07/2022 Obesity (BMI 35.0-39.9 without comorbidity) [E6*01/07/2022 alf current use of anticoagulant [Z79.01] 01/07/2022 Elevated [...] Encounter Status:Closed by MARIBEL FRANCO on [facility] ANYA KAMARA ([id number]) 1950 M [place] Date Time Provider Department 12/29/24 JOSELYN REYES During your visit today, we recorded the following information about you: Dirk Thayer RN 12/29/2024 4:58 PM Signed Pt admitted for Tikosyn. D/c from hospital 12/26/2024 Per d/c instrusction pt to have EKG 1 week after d/c. Please scheduled pt for EKG on 01/02/2025. Evelyn Gaming 12/30/2024 9:30 AM Signed Called LVM and sent pt a MYC. Evelyn Gaming 12/31/2024 9:58 AM Signed Called pt and scheduled. Allergies As of Date: 12/29/2024 Noted Allergy Reaction PERCOCET (OXYCODONE-ACETAMINOPHEN)0 09/15/2016 9 - Itching Comments: Pt took 2 doses close together (per patient) Date Reviewed: 12/26/2024 Reviewed by: Rios Hernandez, UMAIR - Fully Assessed Reason for Visit: Appointment [...] 01/07/2022 Obesity (BMI 35.0-39.9 without comorbidity) [E6*01/07/2022 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 current use of anticoagulant [Z79.01] 01/07/2022 Elevated [...] Encounter Status:Closed by DIRK THAYER on 12/29/24 [facility] ABD LIVER VASCULARon - US ABD LIVER VASCULAR * * *Final Report* * * DATE [...] be communicated with the ordering provider via [employer] staff message or phone message by [employer] within 2 business days of report finalization. --END OF FINDING-- Hassock Maker: ABEBE Transcribe Date/Time: Dec 31 2024 5:32A Dictated by : LUIS M WADE MD This examination was interpreted and the report reviewed and electronically signed by: LUIS M WADE MD on Dec 31 2024 5:45AM EST [id number] Invalid Interpretation Code [facility] US DOPPLER COMPLETEon 2024 US DOPPLER COMPLETE * * *Final Report* * * DATE [...] be communicated with the ordering provider via [employer] staff message or phone message by [employer] within 2 business days of report finalization. --END OF FINDING-- Hassock Maker: ABEBE Transcribe Date/Time: Dec 31 2024 5:32A Dictated by : LUIS M WADE MD This examination was interpreted and the report reviewed and electronically signed by: LUIS M WADE MD on Dec 31 2024 5:45AM EST [id number] [id number] Invalid Interpretation Code [facility] Basic metabolic 2000 panelon 12-26-2024 Anion gap [Moles/Vol] 13 mmol/L Normal 8-15 [facility] Comment on above: Order Comment: Speci men Type: BLOOD SPECIMENOrdering Facility: [facility] Address: [address] [place] [address] Performed By: #### 2 4320-2, ####[facility] LABCLIA [id number] [place] [id number] [place] Calcium [Mass/Vol] 9.8 mg/dL Normal 8.5-10.2 [facility] Comment on above: Order Comment: Speci men Type: BLOOD SPECIMENOrdering Facility: [facility] Address: [address] [place] [address] Performed By: #### 2 2, ####[facility] LABCLIA [id number] [address] [address] [place] Chloride [Moles/Vol] 106 mmol/L Normal 98-107 [facility] Comment on above: Order Comment: Speci men Type: BLOOD SPECIMENOrdering Facility: [facility] Address: [address] [place] [address] Performed By: #### 2 2, ####[facility] LABCLIA [id number] [address] [address] [place] CO2 [Moles/Vol] 22 mmol/L Normal 22-30 [facility] Comment on above: Order Comment: Speci men Type: BLOOD SPECIMENOrdering Facility: [facility] Address: [address] [place] [address] Performed By: #### 2 2, ####[facility] LABCLIA [id number] [address] [address] [place] Creatinine [Mass/Vol] 1.07 mg/dL Normal 0.73-1.22 [facility] Comment on above: Order Comment: Ann montemayor Type: BLOOD SPECIMENOrdering Facility: [facility] Address: [address] [place] [address] Performed By: #### 2 4321-2, ####[facility] LABIA [id number] [place] [address] [place] eGFRcr SerPlBld CKD-EPI 2020 72 mL/min/1.73m??? Normal >=60 [facility] Comment on above: Order Comment: Ann montemayor Type: BLOOD SPECIMENOrdering Facility: [facility] Address: [address] [place] [address] Result Comment: Juanis mated Glomerular Filtration Rate (eGFR) is calculated using the 2020 CKD-EPI creatinine equation. This equation utilizes serum creatinine, sex, and age as parameters. The creatinine assay has traceable calibration to isotope dilution-mass spectrometry. Refer to KDIGO guidelines for clinical interpretation. In patients with unstable renal function, e.g. those with acute kidney injury, the eGFR may not accurately reflect actual GFR. Performed By: #### 2 4321-, ####[facility] LABIA [id number] [place] [id number] [place] Glucose [Mass/Vol] 104 mg/dL High 74-99 [facility] Comment on above: Order Comment: Ann montemayor Type: BLOOD SPECIMENOrdering Facility: [facility] Address: [address] [place] [address] Result Comment: The [place] Diabetes Association (ADA) provides guidance for cutoff [...] Standards of Medical Care in Diabetes 2016, [place] [employer] Association. Diabetes Care. 2016.39(Suppl 1). Performed By: #### 2 4320-2, ####[facility] LABCLIA [id number] [address] [address] [place] Potassium [Moles/Vol] 4.3 mmol/L Normal 3.7-5.1 [facility] Comment on above: Order Comment: Speci men Type: BLOOD SPECIMENOrdering Facility: [facility] Address: [address] [place] [address] Performed By: #### 2 4320-06, ####[facility] LABCLIA [id number] [address] [address] [place] Sodium [Moles/Vol] 141 mmol/L Normal 136-144 [facility] Comment on above: Order Comment: Speci men Type: BLOOD SPECIMENOrdering Facility: [facility] Address: [address] [place], [place] [address] Performed By: #### 2 4320-06, ####[facility] LABCLIA [id number] [address] [address] [place] Urea nitrogen [Mass/Vol] 17 mg/dL Normal 9-24 [facility] Comment on above: Order Comment: Marcii men Type: BLOOD SPECIMENOrdering Facility: [facility] Address: [address] [place], [place] [address] Performed By: #### 2 4320-06, ####[facility] LABIA [id number] [address] [address] [place] CASE MANAGEMon 12-26-2024 CASE MANAGEM HNO ID: [id number] Author: VILMA, KATHRYN, ? Service: ? Author Type: ? Type: Care Mgt Progress Note Filed: 12/26/2024 11:35 Note Text: CARE MANAGEMENT PROGRESS NOTE SERVICE DATE: 12/26/2024 SERVICE TIME: 11:08 am LOS: 3 days IMM Follow Up Copy Given: Yes Copy given to:: Patient Method: In Person SIGNATURE: Kathryn Carlin PATIENT NAME: Anya Kamara DATE: December 26, 2024 TIME: 11:34 AM Normal [facility] CNDSon 12-26-2024 CNDS HNO ID: [id number] Author: SUZY LICONA APRN.RIB PULLER Service: Cardiovascular Medicine Author Type: Nurse Practitioner Type: Discharge Summary Filed: 12/26/2024 14:28 Note Text: -- Attestation signed by Rob Ballesteros MD at 12/26/2024 4:06 PM [facility] STAFF PHYSICIAN NOTE OF PERSONAL [...] 26, 2024 TIME OF SERVICE: 4:06 PM -- Department of Cardiovascular Medicine Discharge Summary (Template ID [id number]) PATIENT NAME: Anya Kamara ADMISSION DATE: 12/23/2024 [...] Yes COPD with acute exacerbation (HCC) Yes 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 current use of anticoagulant Yes BRENDA on [...] Take 1 capsule by mouth two times (more content not included)... Normal [facility] Magnesium SerPl-mCncon 12-26 Magnesium [Mass/Vol] 2.1 mg/dL Normal 1.7-2.3 [facility] Comment on above: Order Comment: Speci men Type: BLOOD SPECIMENOrdering Facility: [facility] Address: [address] [place] [address] Performed By: #### 2 4321-2, 27413-1 ####[facility] LABCLIA [id number] [place] [address] [place] PT EDon 12-26-2024 PT ED HNO ID: [id number] Author: MITZY ORDONEZ RPh Service: Pharmacy Author [...] RECOMMENDATIONS (IF ANY): none SIGNATURE: Mitzy Ordonez [facility] PAGER: [phone] Normal [facility] Basic metabolic 2000 panelon 12-25-2024 Anion gap [Moles/Vol] 13 mmol/L Normal 8-15 [facility] Comment on above: Order Comment: Speci men Type: BLOOD SPECIMENOrdering Facility: [facility] Address: [address] [place] [address] Performed By: #### 2 4320-06, ####[facility] LABCLIA [id number] [place] [address] [place] Calcium [Mass/Vol] 9.8 mg/dL Normal 8.5-10.2 [facility] Comment on above: Order Comment: Speci men Type: BLOOD SPECIMENOrdering Facility: [facility] Address: [address] [place] [address] Performed By: #### 2 4320-06, ####[facility] LABCLIA [id number] [place] [address] [place] Chloride [Moles/Vol] 103 mmol/L Normal 98-107 [facility] Comment on above: Order Comment: Speci men Type: BLOOD SPECIMENOrdering Facility: [facility] Address: [address] [place] [address] Performed By: #### 2 4322, ####[facility] LABCLIA [id number] [place] [id number] [place] CO2 [Moles/Vol] 24 mmol/L Normal 22-30 [facility] Comment on above: Order Comment: Speci men Type: BLOOD SPECIMENOrdering Facility: [facility] Address: [address] [place] [address] Performed By: #### 2 432-2, ####[facility] LABCLIA [id number] [place] [address] [place] Creatinine [Mass/Vol] 1.17 mg/dL Normal 0.73-1.22 [facility] Comment on above: Order Comment: Speci men Type: BLOOD SPECIMENOrdering Facility: [facility] Address: [address] [place] [address] Performed By: #### 2 4322, ####[facility] LABCLIA [id number] [place] [id number] [place] eGFRcr SerPlBld CKD-EPI 2020 65 mL/min/1.73m??? Normal >=60 [facility] Comment on above: Order Comment: Speci men Type: BLOOD SPECIMENOrdering Facility: [facility] Address: [address] [place] [address] Result Comment: Juanis mated Glomerular Filtration Rate (eGFR) is calculated using the 2020 CKD-EPI creatinine equation. This equation utilizes serum creatinine, sex, and age as parameters. The creatinine assay has traceable calibration to isotope dilution-mass spectrometry. Refer to KDIGO guidelines for clinical interpretation. In patients with unstable renal function, e.g. those with acute kidney injury, the eGFR may not accurately reflect actual GFR. Performed By: #### 2 4320-, ####[facility] LABCLIA [id number] [address] [address] [place] Glucose [Mass/Vol] 98 mg/dL Normal 74-99 [facility] Comment on above: Order Comment: Speci men Type: BLOOD SPECIMENOrdering Facility: [facility] Address: [address] [place] [address] Result Comment: The [place] Diabetes Association (ADA) provides guidance for cutoff [...] Standards of Medical Care in Diabetes 2016, [place] Diabetes [employer]. Diabetes Care. 2016.39(Suppl 1). Performed By: #### 2 1-, ####[facility] LABCLIA [id number] [place] [address] [place] Potassium [Moles/Vol] 4.2 mmol/L Normal 3.7-5.1 [facility] Comment on above: Order Comment: Speci men Type: BLOOD SPECIMENOrdering Facility: [facility] Address: [address] [place] [address] Performed By: #### 2 4320-06, ####[facility] LABIA [id number] [place] [address] [place] Sodium [Moles/Vol] 140 mmol/L Normal 136-144 [facility] Comment on above: Order Comment: Speci men Type: BLOOD SPECIMENOrdering Facility: [facility] Address: [address] [place] [address] Performed By: #### 2 4320-06, ####[facility] LABCLIA [id number] [place] [address] [place] Urea nitrogen [Mass/Vol] 22 mg/dL Normal 9-24 [facility] Comment on above: Order Comment: Speci men Type: BLOOD SPECIMENOrdering Facility: [facility] Address: [address] [place] [id number] Performed By: #### 2 4321-2, 66295-2 ####[facility] LABCLIA [id number] [place] [id number] [facility] Magnesium SerPl-mCncon 12-25 Magnesium [Mass/Vol] 2.1 mg/dL Normal 1.7-2.3 [facility] Comment on above: Order Comment: Speci men Type: BLOOD SPECIMENOrdering Facility: [facility] Address: [address] [place], [place] [address] Performed By: #### 2 4321-2, ####[facility] LABCLIA [id number] [address] [place] NURSING PROGon 12-25-2024 NURSING PROG HNO ID: [id number] Author: DEVONTE MORENO RN Service: Nursing Author [...] Patient reported taking home Eliquis and Flomax. MD covering overnight aware. Normal [facility] NURSING PROG HNO ID: [id number] Author: RIOS HERNANDEZ RN Service: Nursing Author Type: Registered Nurse Type: Nursing Progress Note Filed: 12/26/2024 07:17 Note Text: Pt continues to refuses IV insertion and continues to take home medication. Educated on both issues; primary team AND nursing management aware. Normal [facility] Basic metabolic 2000 panelon 12-24-2024 Anion gap [Moles/Vol] 11 mmol/L Normal 8-15 [facility] Comment on above: Order Comment: Speci men Type: BLOOD SPECIMENOrdering Facility: [facility] Address: [address] [place], [place] [address] Performed By: #### 2 432-2, ####[facility] LABCLIA [id number] [facility] [address] [place] [address] [place] Calcium [Mass/Vol] 9.2 mg/dL Normal 8.5-10.2 [facility] Comment on above: Order Comment: Speci men Type: BLOOD SPECIMENOrdering Facility: [facility] Address: [address] [place], [place] [address] Performed By: #### 2 4320-2, ####[facility] LABCLIA [id number] [facility] [address] [place] [address] [place] Chloride [Moles/Vol] 107 mmol/L Normal 98-107 [facility] Comment on above: Order Comment: Speci men Type: BLOOD SPECIMENOrdering Facility: [facility] Address: [address] [place] [address] Performed By: #### 2 2, ####[facility] LABCLIA [id number] [address], [facility] [place] CO2 [Moles/Vol] 24 mmol/L Normal 22-30 [facility] Comment on above: Order Comment: Speci men Type: BLOOD SPECIMENOrdering Facility: [facility] Address: [address] [place], [place] [address] Performed By: #### 2 2, ####[facility] [facility] LABCLIA [id number] [address] [place] [address] [place] Creatinine [Mass/Vol] 1.21 mg/dL Normal 0.73-1.22 [facility] Comment on above: Order Comment: Speci men Type: BLOOD SPECIMENOrdering Facility: [facility] Address: [address] [place], [place] [address] Performed By: #### 2 4320-2, ####[facility] LABCLIA [id number] [address] [place] [address] [place] eGFRcr SerPlBld CKD-EPI 2020 62 mL/min/1.73m??? Normal >=60 [facility] Comment on above: Order Comment: Ann montemayor Type: BLOOD SPECIMENOrdering Facility: [facility] Address: [address] [place] [address] Result Comment: Juansi mated Glomerular Filtration Rate (eGFR) is calculated using the 2020 CKD-EPI creatinine equation. This equation utilizes serum creatinine, sex, and age as parameters. The creatinine assay has traceable calibration to isotope dilution-mass spectrometry. Refer to KDIGO guidelines for clinical interpretation. In patients with unstable renal function, e.g. those with acute kidney injury, the eGFR may not accurately reflect actual GFR. Performed By: #### 2 4321-, ####[facility] LABCLIA [id number] [place] [address] [place] Glucose [Mass/Vol] 115 mg/dL High 74-99 [facility] Comment on above: Order Comment: Ann montemayor Type: BLOOD SPECIMENOrdering Facility: [facility] Address: [address] [place] [address] Result Comment: The [place] Diabetes [employer] (ADA) provides guidance for cutoff [...] Standards of Medical Care in Diabetes 2016, [place] [employer]. Diabetes Care. 2016.39(Suppl 1). Performed By: #### 2 432-2, ####[facility] LABIA [id number] [place] [address] [place] Potassium [Moles/Vol] 4.3 mmol/L Normal 3.7-5.1 [facility] Comment on above: Order Comment: Speci men Type: BLOOD SPECIMENOrdering Facility: [facility] Address: [address] [place], [place] [address] Performed By: #### 2 4321-2, ####[facility] LABCLIA [id number] [address] [address] [place] Sodium [Moles/Vol] 142 mmol/L Normal 136-144 [facility] Comment on above: Order Comment: Speci men Type: BLOOD SPECIMENOrdering Facility: [facility] Address: [address] [place] [address] Performed By: #### 2 4321-2, ####[facility] LABCLIA [id number] [place] [address] [place] Urea nitrogen [Mass/Vol] 21 mg/dL Normal 9-24 [facility] Comment on above: Order Comment: Speci men Type: BLOOD SPECIMENOrdering Facility: [facility] Address: [address] [place] [address] Performed By: #### 2 4321-2, ####[facility] LABCLIA [id number] [place] [address] [place] ECG COMPLETEon 12-24-2024 ECG COMPLETE Ventricular Rate : 5 5 BPM Atrial Rate : 55 BPM P-R Interval : 186 ms QRS Duration : 130 ms Q-T Interval : 484 ms QTC Calculation(Bazett) : 463 ms Calculated P Watkins : 84 degrees Calculated R Watkins : -51 degrees Calculated T Watkins : 54 degrees SINUS BRADYCARDIA LEFT AXIS DEVIATION NONSPECIFIC INTRAVENTRICULAR BLOCK ABNORMAL ECG Confirmed by MD FOFANA HEBA ([id number]) on 01/05/2025 9:02:05 PM NAME : ANYA KAMARA PID : [id number] : 1950 Gender : Male Race : ORD : [id number] Procedure Date : Dec 24 2024 10:56:30 Edit Date : Jan 05 2025 21:02:09 Diagnosis: SINUS BRADYCARDIA LEFT AXIS DEVIATION NONSPECIFIC INTRAVENTRICULAR BLOCK ABNORMAL ECG Confirmed by MD FOFANA HEBA ([id number]) on 01/05/2025 9:02:05 PM Test Reason : Tikosyn Location : 383 : J83 J083-11 Overread By : MD FOFANA HEBA Edited By : MD FOFANA HEBA Referred By : DIO ANAYA Acquired by : SEVERO MILLER Normal [facility] Magnesium SerPl-mCncon 12-24 Magnesium [Mass/Vol] 2.2 mg/dL Normal 1.7-2.3 [facility] Comment on above: Order Comment: Speci men Type: BLOOD SPECIMENOrdering Facility: [facility] Address: [address] [place] [address] Performed By: #### 2 4321-2, 71388-5 ####[facility] LABCLIA [id number] [place] [address] [place] CBC panel Auto (Bld)on 12-23 Erythrocyte distribution width (RBC) [Ratio] 13.9 % Normal 11.5-15.0 [facility] Comment on above: Order Comment: Speci men Type: BLOOD SPECIMENOrdering Facility: [facility] Address: [address] [place] [address] Performed By: #### 5 8410-2 ####[facility] LABIA [id number] [place] [address] [place] Hematocrit (Bld) [Volume fraction] 36.6 % Low 39.0-51.0 [facility] Comment on above: Order Comment: Speci men Type: BLOOD SPECIMENOrdering Facility: [facility] Address: [address] [place] [address] Performed By: #### 5 8410-2 ####[facility] LABCLIA [id number] [place] [address] [place] Hemoglobin (Bld) [Mass/Vol] 12.0 g/dL Low 13.0-17.0 [facility] Comment on above: Order Comment: Speci men Type: BLOOD SPECIMENOrdering Facility: [facility] Address: [address] [place] [address] Performed By: #### 5 8410-2 ####[facility] LABCLIA [id number] [place] [address] [place] [facility] MCH (RBC) [Entitic mass] 29.9 pg Normal 26.0-34.0 [facility] Comment on above: Order Comment: Speci men Type: BLOOD SPECIMENOrdering Facility: [facility] Address: [address] [place] [address] Performed By: #### 5 8410-2 ####[facility] LABIA [id number] [place] [address] [place] MCHC (RBC) [Mass/Vol] 32.8 g/dL Normal 30.5-36.0 [facility] Comment on above: Order Comment: Speci men Type: BLOOD SPECIMENOrdering Facility: [facility] Address: [address] [place] [address] Performed By: #### 5 8410-2 ####[facility] LABIA [id number] [place] [address] [place] MCV (RBC) [Entitic vol] 91.0 fL Normal 80.0-100.0 [facility] Comment on above: Order Comment: Speci men Type: BLOOD SPECIMENOrdering Facility: [facility] Address: [address] [place] [address] Performed By: #### 5 8410-2 ####[facility] LABIA [id number] [place] [address] [place] Nucleated RBC (Bld) [#/Vol] 10*3/uL Normal <0.01 [facility] Comment on above: Order Comment: Speci men Type: BLOOD SPECIMENOrdering Facility: [facility] Address: [address] [place] [address] Performed By: #### 5 8410-2 ####[facility] LABCLIA [id number] [place] [address] [place] Platelet mean volume (Bld) [Entitic vol] 9.0 fL Normal 9.0-12.7 [facility] Comment on above: Order Comment: Speci men Type: BLOOD SPECIMENOrdering Facility: [facility] Address: [address] [place] [address] Performed By: #### 5 8410-2 ####[facility] LABIA [id number] [place] [address] [place] Platelets (Bld) [#/Vol] 310 10*3/uL Normal 150-400 [facility] Comment on above: Order Comment: Speci men Type: BLOOD SPECIMENOrdering Facility: [facility] Address: [address] [place] [address] Performed By: #### 5 8410-2 ####[facility] [id number] [place] [address] [place] RBC (Bld) [#/Vol] 4.02 10*6/uL Low 4.20-6.00 [facility] Comment on above: Order Comment: Speci men Type: BLOOD SPECIMENOrdering Facility: [facility] Address: [address] [place] [address] Performed By: #### 5 8410-2 ####[facility] LABIA [id number] [place] [address] [place] WBC (Bld) [#/Vol] 7.63 10*3/uL Normal 3.70-11.00 [facility] Comment on above: Order Comment: Speci men Type: BLOOD SPECIMENOrdering Facility: [facility] Address: [address] [place] [address] Performed By: #### 5 8410-2 ####[facility] LABIA [id number] [place] [address] [place] Comprehensive metabolic 2000 panelon 12-23-2024 Albumin [Mass/Vol] 3.8 g/dL Low 3.9-4.9 [facility] Comment on above: Order Comment: Speci men Type: BLOOD SPECIMENOrdering Facility: [facility] Address: [address] [place] [address] Performed By: #### 1 9123-9, 25222-8 ####[facility] LABCLIA [id number] [place] [id number] [place] ALP [Catalytic activity/Vol] 376 U/L High 38-113 [facility] Comment on above: Order Comment: Speci men Type: BLOOD SPECIMENOrdering Facility: [facility] Address: [address] [place] [address] Performed By: #### 1 9123-9, ####[facility] LABCLIA [id number] [place] [address] [place] ALT [Catalytic activity/Vol] 43 U/L Normal 10-54 [facility] Comment on above: Order Comment: Speci men Type: BLOOD SPECIMENOrdering Facility: [facility] Address: [address] [place] [address] Performed By: #### 1 9123-9, ####[facility] LABCLIA [id number] [address] [address] [place] Anion gap [Moles/Vol] 10 mmol/L Normal 8-15 [facility] Comment on above: Order Comment: Speci men Type: BLOOD SPECIMENOrdering Facility: [facility] Address: [address] [place] [address] Performed By: #### 1 9123-9, 44195-1 ####[facility] LABCLIA [id number] [place] [address] [place] AST [Catalytic activity/Vol] 41 U/L High 14-40 [facility] Comment on above: Order Comment: Speci men Type: BLOOD SPECIMENOrdering Facility: [facility] Address: [address] [place], [place] [address] Performed By: #### 1 9123-9, 51529-8 ####[facility] LABCLIA [id number] [address] [address] [place] Bilirubin [Mass/Vol] 0.3 mg/dL Normal 0.2-1.3 [facility] Comment on above: Order Comment: Speci men Type: BLOOD SPECIMENOrdering Facility: [facility] Address: [address] [place] [address] Performed By: #### 1 9123-9, ####[facility] LABCLIA [id number] [place] [address] [place] Calcium [Mass/Vol] 9.4 mg/dL Normal 8.5-10.2 [facility] Comment on above: Order Comment: Speci men Type: BLOOD SPECIMENOrdering Facility: [facility] Address: [address] [place] [address] Performed By: #### 1 9123-9, ####[facility] LABCLIA [id number] [place] [address] [place] Chloride [Moles/Vol] 105 mmol/L Normal 98-107 [facility] Comment on above: Order Comment: Speci men Type: BLOOD SPECIMENOrdering Facility: [facility] Address: [address] [place], [place] [address] Performed By: #### 1 9123-9, ####[facility] LABCLIA [id number] [address] [address] [place] CO2 [Moles/Vol] 24 mmol/L Normal 22-30 [facility] Comment on above: Order Comment: Speci men Type: BLOOD SPECIMENOrdering Facility: [facility] Address: [address] [place], [place] [address] Performed By: #### 1 9123-9, 88853-9 ####[facility] LABIA [id number] [address] [address] [place] Creatinine [Mass/Vol] 1.12 mg/dL Normal 0.73-1.22 [facility] Comment on above: Order Comment: Ann montemayor Type: BLOOD SPECIMENOrdering Facility: [facility] Address: [address] [place] [address] Performed By: #### 1 9123-9, ####[facility] LABIA [id number] [address] [address] [place] eGFRcr SerPlBld CKD-EPI 2020 69 mL/min/1.73m??? Normal >=60 [facility] Comment on above: Order Comment: Ann montemayor Type: BLOOD SPECIMENOrdering Facility: [facility] Address: [address] [place] [address] Result Comment: Juanis mated Glomerular Filtration Rate (eGFR) is calculated using the 2020 CKD-EPI creatinine equation. This equation utilizes serum creatinine, sex, and age as parameters. The creatinine assay has traceable calibration to isotope dilution-mass spectrometry. Refer to KDIGO guidelines for clinical interpretation. In patients with unstable renal function, e.g. those with acute kidney injury, the eGFR may not accurately reflect actual GFR. Performed By: #### 1 9123-9, ####[facility] LABIA [id number] [address] [address] [place] Glucose [Mass/Vol] 117 mg/dL High 74-99 [facility] Comment on above: Order Comment: Ann men Type: BLOOD SPECIMENOrdering Facility: [facility] Address: [address] [place] [address] Result Comment: The [place] Diabetes Association (ADA) provides guidance for cutoff [...] Standards of Medical Care in Diabetes 2016, [place] [employer]. Diabetes Care. 2016.39(Suppl 1). Performed By: #### 1 23-9, ####[facility] LABCLIA [id number] [address] [address] [place] Potassium [Moles/Vol] 4.1 mmol/L Normal 3.7-5.1 [facility] Comment on above: Order Comment: Speci men Type: BLOOD SPECIMENOrdering Facility: [facility] Address: [address] [place] [address] Performed By: #### 1 912[address], ####[facility] LABCLIA [id number] [address] [address] [place] Protein [Mass/Vol] 6.7 g/dL Normal 6.3-8.0 [facility] Comment on above: Order Comment: Speci men Type: BLOOD SPECIMENOrdering Facility: [facility] Address: [address] [place] [address] Performed By: #### 1 239, ####[facility] LABCLIA [id number] [address] [address] [place] Sodium [Moles/Vol] 139 mmol/L Normal 136-144 [facility] Comment on above: Order Comment: Speci men Type: BLOOD SPECIMENOrdering Facility: [facility] Address: [address] [place] [address] Performed By: #### 1 239, ####[facility] LABCLIA [id number] [address] [address] [place] Urea nitrogen [Mass/Vol] 21 mg/dL Normal 9-24 [facility] Comment on above: Order Comment: Speci men Type: BLOOD SPECIMENOrdering Facility: [facility] Address: [address] [place] [address] Performed By: #### 1 9123-9, 07877-3 ####[facility] LABCLIA [id number] [facility] [place] [address] [place] ECG COMPLETEon 12-23-2024 ECG COMPLETE Ventricular Rate : 5 4 BPM Atrial Rate : 54 BPM P-R Interval : 190 ms QRS Duration : 132 ms Q-T Interval : 482 ms QTC Calculation(Bazett) : 457 ms Calculated P Watkins : 69 degrees Calculated R Watkins : -52 degrees Calculated T Watkins : 51 degrees SINUS BRADYCARDIA LEFT AXIS DEVIATION NONSPECIFIC INTRAVENTRICULAR BLOCK ABNORMAL ECG Confirmed by NEENA WOODSON MD ([id number]) on 01/06/2025 3:31:11 PM NAME : ANYA KAMARA PID : [id number] : 1950 Gender : Male Race : ORD : [id number] Procedure Date : Dec 23 2024 23:26:03 [...] DIO ANAYA Acquired by : STEFANIE AVILES [facility] ECG COMPLETE Ventricular Rate : 5 7 BPM Atrial Rate : 57 BPM P-R Interval : 196 ms QRS Duration : 128 ms Q-T Interval : 464 ms QTC Calculation(Bazett) : 451 ms Calculated P Watkins : 92 degrees Calculated R Watkins : -52 degrees Calculated T Watkins : 49 degrees SINUS BRADYCARDIA LEFT AXIS DEVIATION NONSPECIFIC INTRAVENTRICULAR BLOCK ABNORMAL ECG Confirmed by NEENA WOODSON MD ([id number]) on 01/06/2025 3:30:21 PM NAME : ANYA KAMARA PID : [id number] : 1950 Gender : Male Race : ORD : [id number] Procedure Date : Dec 23 2024 17:23:02 [...] By : DIO ANAYA Acquired by : Swapnil knutson [facility] ECG COMPLETE Ventricular Rate : 5 7 BPM Atrial Rate : 57 BPM P-R Interval : 192 ms QRS Duration : 122 ms Q-T Interval : 464 ms QTC Calculation(Bazett) : 451 ms Calculated P Watkins : 84 degrees Calculated R Watkins : -51 degrees Calculated T Watkins : 33 degrees SINUS BRADYCARDIA LEFT AXIS DEVIATION NONSPECIFIC INTRAVENTICULAR BLOCK ABNORMAL ECG Confirmed by NEENA WOODSON MD (57) on 01/06/2025 3:31:06 PM NAME : ANYA KAMARA PID : [id number] : 1950 Gender : Male Race : ORD : [id number] Procedure Date : Dec 23 2024 17:23:43 [...] By : DIO ANAYA Acquired by : Swapnil knutson [facility] HISTORY PHYSICALon HISTORY PHYSICAL HNO ID: [id number] Author: VIOLETTE RIVERA APRN.CNP Service: Cardiovascular Medicine Author Type: Nurse Practitioner Type: H&P Filed: 12/23/2024 17:48 Note Text: -- Attestation signed by Rob Ballesteros MD at 12/24/2024 12:14 PM [facility] STAFF PHYSICIAN NOTE OF PERSONAL [...] 24, 2024 TIME OF SERVICE: 12:13 PM -- [facility] CARDI[facility]ASCULAR MEDICINE HISTORY AND PHYSICAL (Template ID [id number]) Anya Kamara [id number] PRIMARY SERVICE: Cardiovascular Medicine: Electrophysiology DATE OF [...] daily.Disp: Rfl: tamsulosin (FLOMAX) 0.4 mg ORAL Rt48Pquh 1 capsule by mouth daily at bedtime.Disp: 90 capsuleRfl: 3 LORAZEPAM ORALTake 0.5 mg by mouth as needed.Disp: Rfl: metoprolol succinate ER (TOPROL XL) 25 mg 24 hr tabletTake 0.5 tablets by mouth once daily.Disp: 15 tabletRfl: 11 thiamine (VITAMIN B1) 100 mg tablet1 tablet by ORAL/FEEDING TUBE route once daily.Disp: 30 tabletRfl: 0 loperami (more content not included)... Normal [facility] Magnesium SerPl-mCncon 12-23 Magnesium [Mass/Vol] 2.1 mg/dL Normal 1.7-2.3 [facility] Comment on above: Order Comment: Speci men Type: BLOOD SPECIMENOrdering Facility: [facility] Address: [address] [place] [address] Performed By: #### 1 9123-9, 13611-9 ####[facility] LABCLIA [id number] [address] OF [place] NURSING PROGon 12-23-2024 NURSING PROG HNO ID: [id number] Author: LOUISA QUISPE, RN Service: Nursing Author Type: Registered Nurse Type: Nursing Progress Note Filed: 12/23/2024 09:39 Note Text: Admission/Transfer Note PATIENT NAME: Anya Kamara Patient Location: [place] [address] [facility] Admitted from home via ambulation in [...] This note was completed by: Louisa Quispe Normal [facility] PT panel Coag (PPP)on 2024 INR Coag (PPP) [Relative time] 1.1 {INR} Normal 0.9-1.3 [facility] Comment on above: Order Comment: Speci men Type: BLOOD SPECIMENOrdering Facility: [facility] Address: [address] [place] [address] Result Comment: Keysha min K Antagonist (VKA) Therapeutic Range: INR 2 to 3 (Target INR of 2.5) Note: For patients treated with VKA drugs, such as warfarin, the [place] [employer] 2012 Guideline recommends [...] 2.5 to 3.5 (target INR of 3). Williamtt GH, et al. Chest 2012, 141:7S-47S Marcelo RA, et al. [facility] 2017, 70: 252-289 Performed By: #### 3 4528-0 ####[facility] [id number] [place] [address] [place] PT Coag (PPP) [Time] 11.7 s Normal 9.7-13.0 [facility] Comment on above: Order Comment: Ann montemayor Type: BLOOD SPECIMENOrdering Facility: [facility] Address: [address] [place] [address] Performed By: #### 3 4528-0 ####[facility] [id number] [place] [id number] [place] CT Chest, Abd, Pel w/Contras ton 12-18-2024 CT Chest, Abd, Pel w/Contrast [facility] Imaging Services [address] [place] [address] CT Chest, Abd, Pel w/Contrast MR#: [id number] Acct: [id number] Name: ANYA KAMARA Rep #: [id number] : 1950 M 74 From: Jatin Ely MD PCP: Dr. Ezekiel Caro, DO Status: REG CLI Study: CT Chest, Abd, Pel w/Contrast Date of Exam: Exam# [id number] Ordering Dr: Jonelle Thayer DRAWING SUPERVISOR-C PROCEDURE: CT CHEST, ABD, PEL W/CONTRAST 12/18/2024 REASON FOR EXAM: BILATERAL HEPATIC LOBE MASSES, HX OF PROSTATE CANC TECHNIQUE: Chest, abdomen and pelvis CT with intravenous contrast. Coronal and Sagittal reconstruction series were provided. One or more dose reduction techniques were used (e.g., Automated exposure control, adjustment of the mA and/or kV according to patient size, use of iterative reconstruction technique. PATIENT PREPARATION: Per protocol ORAL CONTRAST TYPE: None. AMOUNT: mL CONTRAST: Isovue 370 VOLUME: 99mL Gauge IV RADIATION DOSE SUMMARY: CTDlvol: 65 mGy DLP: 2264 mGycm COMPARISON: Abdominopelvic CT 09/23/2019 FINDINGS: Unremarkable base of neck and axilla. Normal esophagus. Normal heart size. No acute vascular pathology. Dilated ascending aorta, 4.7 cm maximum cross-section. Thoracic spine degeneration. Status post proximal left humerus injury/repair. Central airways are patent. There are bilateral numerous, approximately 20, noncalcified lung nodules measuring up to 1.5 cm on the left, series 6, image 10 and 0.9 cm on the right, series 6, image 96. Interval development of extensive and partially confluence liver metastatic disease. Largest lesion, series 3, image 28, centered in the right lobe, measures approximately 7.9 x 17.7 cm. There is thrombus in the portal confluence, series 3, image 44, which could possibly represent tumor, rather than bland, thrombus. Unremarkable gallbladder. Normal pancreas, spleen, adrenal glands, kidneys. No hydronephrosis. There is a suspected bladder mass, series 605, image 92, measuring about 1.2 cm, off the right posterior bladder wall.. The prostate gland is small or has been removed, advise correlation.. No retroperitoneal or pelvic adenopathy. No free air. Nondistended bowel. No acute large bowel findings. No signs of appendicitis. Lumbar spine degeneration. No acute abdominal wall findings. There is pelvic floor laxity. CT/CT Chest, Abd, Pel w/Contrast IMPRESSION: Extensive lung metastatic disease. Extensive liver metastatic disease. 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 Suspect bladder tumor. Consider cystoscopy. Reading Location: [place] [address] CC: PATTI Thayer; Dr. Ezekiel Caro DO Hassock Maker: Signed Normal [facility] Visit Repor ton 12-18-2024 Gastroenterology Visit Report [facility] [address] [place] [address] OFFICE VISIT Date of Service: 12/18/24 MR#: [id number] Acct: [id number] Name: ANYA KAMARA Rep #: [id number] : 1950 Provider: PATTI roach Age/Sex: 74/M Location: [facility] Status: Signed Intake Intake Visit Reasons: 1 M FU Allergies No Known Allergies Allergy (Verified 07/26/19 15:11) Medications ???Medication ???Instructions ???Recorded ???Confirmed ???Type finasteride 5 mg tablet 5 mg PO DAILY 07/26/19 12/18/24 Hi story lorazepam 0.5 mg tablet 0.5 mg PO DAILY PRN PRN Anxiety 12/18/24 History losartan 100 mg tablet 100 mg PO DAILY 07/26/19 12/18/24 History tamsulosin 0.4 mg capsule 0.4 mg PO DAILY 07/26/19 12/18/24 History apixaban 5 mg tablet (Eliquis) 5 mg PO BID 11/17/24 12/18/24 Hist ory dofetilide 125 mcg capsule 125 mcg PO BID 11/17/24 12/18/24 H istory esomeprazole magnesium 40 mg 40 mg PO BID #60 caps 11/17/2412/05 Rx capsule,delayed release famotidine 40 mg tablet 40 mg PO QHS #30 tabs 11/17/2412/05 Rx fluticasone furoate 100 1 inh inhalation QDAY 11/17/2412/05 History mcg-vilanterol 25 mcg/dose inhalation powder (Breo Ellipta) metoprolol succinate 25 mg 12.5 mg PO DAILY 11/17/24 12/18/24 History tablet,extended release 24 hr Have you fallen in the past year?: Yes PFSH Medical History Murmur, heart IBS (irritable bowel syndrome) High blood pressure Heart disease Cancer Atrial fibrillation Arthritis Family History Father Alcoholism Social History Smoking Status: Never smoker alcohol intake: current substance use type: does not use HPI HPI Details: ANYA KAMARA, is a 74 M who presents to the office today for FU. 11.19.24 OV establishment with I regarding concerns for GERD and epigastric abdominal pain. Per PCP office note, his medication was changed from famotidine 40mg twice to pantoprazole 40mg twice daily due to no improvement in symptoms. He denies relief of symptoms with pantoprazole either. He states that there is no correlation between foods and timing of abdominal pain. He denies radiation of pain, nausea, and vomiting. Discussed car plan with him. -schedule bidirectional endoscopies 11.25.24 US abd - Suspicious masses noted on both lobes of the liver, concerning for cancer. I attempted to call him. Left a VM for him to call office back. Please let him know that I placed multiple orders for blood to be drawn and for him to have a CT of his chest/abd/pelvis with and without contrast to investigate these masses. Pending blood test results he will need a CT-guided liver biopsy. His chart was reviewed by Mingo and Eulalia of the [facility]. 11.27.24 Contact - Notified him of US findings and the need for further blood and imaging testing to assist with diagnosis. Advised him that I did speak with the oncologists available here at [facility]. He responded,well, I saw the prostate cancer doctor, Merrill, before. I told him that is a urologist who specializes in that organ and that he is not able to help guide care with his liver. He is in agreement to plan of thorough investigation starting with blood tests and will be waiting to hear from central scheduling for the CT. He reports that the esomeprazole and famotidine are not helping his dry cough at all. 8.12.05 OV Presents with his son, states confusion as to why he's here now when his CT isn't scheduled until after 4p. [facility] staff mentioned that he has questions regarding US findings and possible treatments available for whatever the liver mass may be. He states that he is concerned over being to sit still long enough for thte CT to get a diagnostic image as he has a persistent nonproductive cough. He was give benzonatate 100mg and told to take 2 caps three times daily as needed, as well as fluticasone/salmeterol inhaler to take twice daily. I advised him that if doesn't think he can take his medicine AND lay still, having the CT may not give us the most optimal diagnostic image. He states, I just wish someone could stop this dent coughing. He denies having any other new complaints. ROS Const Constitutional: Positive for fatigue; No fever(s) or weight change ENT ENT: No difficulty swallowing Gastro GI: No abdominal pain, belching, bloating, change in bowel habits, change in stool character, coffee ground emesis, constipation, cramping, diarrhea, heartburn, difficulty swallowing, feeling full early, excessive flatus, incontinent of stools, Vomiting blood/hematemesis, Blood in stool, loose stools, Black,tarry stools, nausea/dyspepsia, pain with swallowi (more content not included)... Normal [facility] 12-08-2024 [facility] Telephone (LOUIE) -- ANYA KAMARA ([id number]) 1950 M [facility] Date Time Provider Department 12/08/24 DIO ANAYA During your visit today, we recorded the following information about you: Perla Dupont 12/08/2024 9:48 AM Signed Abnormal Zio- patch was worn from 11/16/24 thru 11/28/24 61% [place] of A-fib At certain points there was a rapid heart rate @ 152 BPM (lasting 60-seconds). Located on strip 9, pg 15 36 Runs of SVT 2 Pauses- longest lasting 3.1 seconds Already posted Violette Smith RN 12/19/2024 4:03 PM Signed Spoke to patient. Per Dr Anaya: BB Can you reach out. 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 On low dose Tikosyn. Would rec admission to [facility] main to attempt to up-titrate Tikosyn to 250 mcg BId. Tentatively hold a spot for a redo PVI / atypical AFL RFA in the event that increased Tikosyn fails. Patient is agreeable to tikosyn uptitration on Monday December 23, 2024. Patient instructed to come to Admitting at -1 at 9am. Discussed that he/she will wear [...] co-pay will be. Instructed to contact EP 's office if prior authorization is needed or if any questions. Will continue medication after discharge. Questions answered. Labs placed in EPIC. Bed reservation called in to Admitting. Violette Longoria RN Allergies As of Date: 12/08/2024 Noted Allergy Reaction PERCOCET (OXYCODONE-ACETAMINOPHEN)0 09/15/2016 9 - Itching Comments: Pt took 2 [...] 01/07/2022 Obesity (BMI 35.0-39.9 without comorbidity) [E6*01/07/2022 alf current use of anticoagulant [Z79.01] 01/07/2022 Elevated LFTs [R79.89] 01/07/2022 Anemia [D64.9] 01/07/2022 Elevated serum creatinine [R79.89] 01/07/2022 Chest pain [R07.9] 01/08/2022 Supratherapeutic INR [R79.1] 01/09/2022 Steroid-induced hyperglycemia [R73.9, T38.0X5A] 01/09/2022 COPD (chronic obstructive pulmonary disease) (H*01/10/2022 Stage 3a chronic kidney disease (HCC) [N18.31] 01/11/2022 Subacute frontal sinusitis [J01.10] 01/13/2022 Atrial fibrillation (HCC) [I48.91] 02/08/2022 (more content not included)... Normal [facility] AFP, Tumor Markeron 11-30-19 25 AFP TUMOR KATIANA 3.4 ng/mL Normal 0.0-8.4 [facility] Comment on above: Order Comment: N Result Comment: [facility] [employer] [facility] Electrochemiluminescence Immunoassay (ECLIA) Values obtained with different assay methods or kits cannot be used interchangeably. Results cannot be interpreted as absolute evidence of the presence or absence of malignant disease. This test is not interpretable in females. Performed at: [address] [id number] Meter Tester Polyphase: Latrell Anders PhD, Phone: [phone] Performed By: #### L 100.0100, L501.9940, L3300.0700, L300.3900, L500.4050, L3100.2300 ####[facility] [address] [place], [address] Carcinoembryonic Antigenon 0 11-29-2024 CEA 1.2 ng/mL Normal 0.0-4.7 [facility] Comment on above: Result Comment: Nons mokers <3.9 Smokers <5.6 [facility] Electrochemiluminescence Immunoassay (ECLIA) Values obtained with different assay methods or kits cannot be used interchangeably. Results cannot be interpreted as absolute evidence of the presence or absence of malignant disease. Performed By: #### L 100.0100, L501.9940, L3300.0700, L300.3900, L500.4050, L3100.2300 ####[facility] [address] [place], [address] Absolute lymphocyte countOrd ered By: Jonelleher Thayer on 11-27-2024 Lymphocytes Auto (Unsp spec) [#/Vol] 1.27 10*3/uL 0.83-4.51 [facility] Absolute neutrophil countOrd ered By: Jonelleher Thayer on 11-27-2024 Neutrophils (Bld) [#/Vol] 5.9 10*3/uL 2.0-7.7 [facility] Anion gap in Serum or Plasma Ordered By: Jonelle Thayer on 11-27-2024 Anion gap [Moles/Vol] 11 mmol/L - [facility] Automated lymphocyte count a s percentage of total leukocytesOrdered By: Jonelleher Thayer on 11-27-2024 Lymphocytes/100 WBC Auto (Unsp spec) 15.4 % Low 19-41 [facility] BUN/creatinine ratioOrdered By: Jonelleher Thayer on 11-27-2024 Urea nitrogen/Creatinine [Mass ratio] 15.3 mg/mg 10- [facility] Basophil percentageOrdered B y: Jonelle Thayer on 11-27-2024 Basophils/100 WBC (Bld) 0.5 % 0- [facility] Bilirubin, totalOrdered By: Jonelleher Thayer on 11-27-2024 Bilirubin [Mass/Vol] 0.71 mg/dL 0.00-1.30 [facility] CBC W/Diff, Automatedon 11-11 Absolute Lymph 1.27 X10 3/uL Normal 0.83-4.51 [facility] Comment on above: Performed By: #### L 100.0100, L501.9940, L3300.0700, L300.3900, L500.4050, L3100.2300 #### [facility] [address] [place], [address] Absolute Neut 5.9 X10 3/uL Normal 2.0-7.7 [facility] Comment on above: Performed By: #### L 100.0100, L501.9940, L3300.0700, L300.3900, L500.4050, L3100.2300 #### [facility] [address] [place], [address] Basophils/100 WBC (Bld) 0.5 % Normal 0-1 [facility] Comment on above: Performed By: #### L 100.0100, L501.9940, L3300.0700, L300.3900, L500.4050, L3100.2300 #### [facility] [address] [place], [address] Eosinophils/100 WBC (Bld) 0.5 % Normal 0-5 [facility] Comment on above: Performed By: #### L 100.0100, L501.9940, L3300.0700, L300.3900, L500.4050, L3100.2300 #### [facility] [address] [place], [address] Erythrocyte distribution width (RBC) [Ratio] 14.4 % Normal 11.6-14.6 [facility] Comment on above: Performed By: #### L 100.0100, L501.9940, L3300.0700, L300.3900, L500.4050, L3100.2300 #### [facility] [address] [place], [address] Hematocrit (Bld) [Volume fraction] 34.4 % Low 40-54 [facility] Comment on above: Performed By: #### L 100.0100, L501.9940, L3300.0700, L300.3900, L500.4050, L3100.2300 #### [facility] [address] [place], [address] Hemoglobin (Bld) [Mass/Vol] 11.3 g/dL Low 13.0-16.5 [facility] Comment on above: Performed By: #### L 100.0100, L501.9940, L3300.0700, L300.3900, L500.4050, L3100.2300 #### [facility] [address] [place], [address] IG% 0.600 Normal 0.0-0.9 [facility] Comment on above: Result Comment: IG% - Immature Granulocytes (promyelocytes, myelocytes and metamyelocytes) > 1% indicates that a LEFT SHIFT is Present. Performed By: #### L 100.0100, L501.9940, L3300.0700, L300.3900, L500.4050, L3100.2300 #### [facility] [address] [place], [address] Lymphocytes/100 WBC (Bld) 15.4 % Low 19-41 [facility] Comment on above: Performed By: #### L 100.0100, L501.9940, L3300.0700, L300.3900, L500.4050, L3100.2300 #### [facility] [address] [place], [address] MCH (RBC) [Entitic mass] 30.6 pg Normal 27.0-32.0 [facility] Comment on above: Performed By: #### L 100.0100, L501.9940, L3300.0700, L300.3900, L500.4050, L3100.2300 #### [facility] [address] [place], [address] MCHC (RBC) [Mass/Vol] 32.8 g/dL Normal 32-36 [facility] Comment on above: Performed By: #### L 100.0100, L501.9940, L3300.0700, L300.3900, L500.4050, L3100.2300 #### [facility] [address] [place], [address] MCV (RBC) [Entitic vol] 93.2 fL Normal 80-94 [facility] Comment on above: Performed By: #### L 100.0100, L501.9940, L3300.0700, L300.3900, L500.4050, L3100.2300 #### [facility] [address] [place], [address] Monocytes/100 WBC (Bld) 11.9 % High 0-10 [facility] Comment on above: Performed By: #### L 100.0100, L501.9940, L3300.0700, L300.3900, L500.4050, L3100.2300 #### [facility] [address] [place], [address] Neutrophils/100 WBC (Bld) 71.1 % High 47-70 [facility] Comment on above: Performed By: #### L 100.0100, L501.9940, L3300.0700, L300.3900, L500.4050, L3100.2300 #### [facility] [address] [place], [address] Nucleated RBC (Bld) [#/Vol] 0 10*3/uL Normal 0-5 [facility] Comment on above: Performed By: #### L 100.0100, L501.9940, L3300.0700, L300.3900, L500.4050, L3100.2300 #### [facility] [address] [place], [address] Platelet mean volume (Bld) [Entitic vol] 9.0 fL Normal 6.2-12.0 [facility] Comment on above: Performed By: #### L 100.0100, L501.9940, L3300.0700, L300.3900, L500.4050, L3100.2300 #### [facility] [address] [place], [address] Platelets (Bld) [#/Vol] 267 10*3/uL Normal 150-450 [facility] Comment on above: Performed By: #### L 100.0100, L501.9940, L3300.0700, L300.3900, L500.4050, L3100.2300 #### [facility] [address] [place], [address] RBC (Bld) [#/Vol] 3.69 10*6/uL Low 4.6-6.2 [facility] Comment on above: Performed By: #### L 100.0100, L501.9940, L3300.0700, L300.3900, L500.4050, L3100.2300 #### [facility] [address] [place], [address] RDW SD 49.2 fl High 35.1-43.9 [facility] Comment on above: Performed By: #### L 100.0100, L501.9940, L3300.0700, L300.3900, L500.4050, L3100.2300 #### [facility] [address] [place], [address] WBC (Bld) [#/Vol] 8.3 10*3/uL Normal 4.4-11.0 [facility] Comment on above: Performed By: #### L 100.0100, L501.9940, L3300.0700, L300.3900, L500.4050, L3100.2300 #### [facility] [address] [place], [address] Carbon dioxide, total [Moles /volume] in Central venous bloodOrdered By: Jonelle Thayer on 11-27-2024 CO2 [Moles/Vol] 24.1 mmol/L 21.0-32.0 [facility] Chloride assayOrdered By: Zachary jose Thayer on 11-27-2024 Chloride [Moles/Vol] 104 mmol/L 98-108 [facility] Comprehensive Metabolic Prof ilon 11-27-2024 Albumin [Mass/Vol] 3.8 g/dL Normal 3.4-4.8 [facility] Comment on above: Performed By: #### L 100.0100, L501.9940, L3300.0700, L300.3900, L500.4050, L3100.2300 ####[facility] [address] [place], [address] Albumin/Globulin [Mass ratio] 1.4 {ratio} Normal 0.9-2.4 [facility] Comment on above: Performed By: #### L 100.0100, L501.9940, L3300.0700, L300.3900, L500.4050, L3100.2300 ####[facility] [address] [place], [address] ALK PHOS 319 U/L High 40-129 [facility] Comment on above: Performed By: #### L 100.0100, L501.9940, L3300.0700, L300.3900, L500.4050, L3100.2300 ####[facility] [address] [place], [address] ALT [Catalytic activity/Vol] 77 U/L High <=46 [facility] Comment on above: Performed By: #### L 100.0100, L501.9940, L3300.0700, L300.3900, L500.4050, L3100.2300 ####[facility] [address] [place], [address] AST [Catalytic activity/Vol] 53 U/L High <=37 [facility] Comment on above: Performed By: #### L 100.0100, L501.9940, L3300.0700, L300.3900, L500.4050, L3100.2300 ####[facility] [address] [place], [address] Bilirubin [Mass/Vol] 0.71 mg/dL Normal 0.00-1.30 [facility] Comment on above: Performed By: #### L 100.0100, L501.9940, L3300.0700, L300.3900, L500.4050, L3100.2300 ####[facility] [address] [place], [address] BUN/CRE 15.3 RATIO Normal 10-20 [facility] Comment on above: Performed By: #### L 100.0100, L501.9940, L3300.0700, L300.3900, L500.4050, L3100.2300 ####[facility] [address] [place], [address] Calcium [Mass/Vol] 9.3 mg/dL Normal 7.6-11.0 [facility] Comment on above: Performed By: #### L 100.0100, L501.9940, L3300.0700, L300.3900, L500.4050, L3100.2300 ####[facility] [address] [place], [address] Chloride [Moles/Vol] 104 mmol/L Normal 98-108 [facility] Comment on above: Performed By: #### L 100.0100, L501.9940, L3300.0700, L300.3900, L500.4050, L3100.2300 ####[facility] [address] [place], [address] CO2 [Moles/Vol] 24.1 mmol/L Normal 21.0-32.0 [facility] Comment on above: Performed By: #### L 100.0100, L501.9940, L3300.0700, L300.3900, L500.4050, L3100.2300 ####[facility] [address] [place], [address] Creatinine [Mass/Vol] 1.23 mg/dL High 0.70-1.20 [facility] Comment on above: Performed By: #### L 100.0100, L501.9940, L3300.0700, L300.3900, L500.4050, L3100.2300 ####[facility] [address] [place], [address] GAP 11 Normal 5-15 [facility] Comment on above: Performed By: #### L 100.0100, L501.9940, L3300.0700, L300.3900, L500.4050, L3100.2300 ####[facility] [address] [place], [address] GFR/1.73 sq M.predicted among non-blacks MDRD (S/P/Bld) [Vol rate/Area] 61 mL/min/{1.73_m2} Normal >60 [facility] Comment on above: Result Comment: mL/m in/1.73m2 CKD-EPI Creatinine Equation (2020) Performed By: #### L 100.0100, L501.9940, L3300.0700, L300.3900, L500.4050, L3100.2300 ####[facility] [address] [place], [address] Globulin (S) [Mass/Vol] 2.7 g/dL Normal 2.2-4.2 [facility] Comment on above: Performed By: #### L 100.0100, L501.9940, L3300.0700, L300.3900, L500.4050, L3100.2300 ####[facility] [address] [place], [address] Glucose [Mass/Vol] 128 mg/dL High 70-99 [facility] Comment on above: Performed By: #### L 100.0100, L501.9940, L3300.0700, L300.3900, L500.4050, L3100.2300 ####[facility] [address] [place], [address] Potassium [Moles/Vol] 4.3 mmol/L Normal 3.3-5.1 [facility] Comment on above: Performed By: #### L 100.0100, L501.9940, L3300.0700, L300.3900, L500.4050, L3100.2300 ####[facility] [address] [place], [address] Sodium [Moles/Vol] 139 mmol/L Normal 133-145 [facility] Comment on above: Performed By: #### L 100.0100, L501.9940, L3300.0700, L300.3900, L500.4050, L3100.2300 ####[facility] [address] [place], [address] T PROT 6.4 g/dL Normal 5.9-8.4 [facility] Comment on above: Performed By: #### L 100.0100, L501.9940, L3300.0700, L300.3900, L500.4050, L3100.2300 ####[facility] [address] [place], [address] Urea nitrogen [Mass/Vol] 19 mg/dL Normal 4-19 [facility] Comment on above: Performed By: #### L 100.0100, L501.9940, L3300.0700, L300.3900, L500.4050, L3100.2300 ####[facility] [address] [place], [address] Eosinophil percentageOrdered By: Jonelle Thayer on 07-17-2025 Eosinophils/100 WBC (Bld) 0.5 % 0-5 [facility] Erythrocyte distribution wid th ratioOrdered By: Jonelle Thayer on 11-27-2024 Erythrocyte distribution width (RBC) [Ratio] 14.4 % 11.6-14.6 [facility] Erythrocyte distribution wid th standard deviationOrdered By: Jonelle Thayer on 11-27-2024 Erythrocyte distribution width (RBC) [Ratio] 49.2 fl High 35.1-43.9 [facility] Glomerular filtration rate ( GFR) estimation/1.73 sq m using serum, plasma, or whole bOrdered By: Jonelle Thayer on 11-27-2024 GFR/1.73 sq M.predicted among non-blacks MDRD (S/P/Bld) [Vol rate/Area] 61 mL/min/{1.73_m2} >60 [facility] Comment on above: mL/min/1.73m2 CKD-EP I Creatinine Equation (2020) Hematocrit Auto (Bld) [Volum e fraction]Ordered By: Jonelle Thayer on 11-27-2024 Hematocrit (Bld) [Volume fraction] 34.4 % Low 40-54 [facility] Hemoglobin measurementOrdere d By: Jonelle Thayer on 11-27-2024 Hemoglobin (Bld) [Mass/Vol] 11.3 g/dL Low 13.0-16.5 [facility] Immature granulocytes/100 WB C Auto (Bld)Ordered By: Jonelle Thayer on 11-27-2024 Immature granulocytes/100 WBC (Bld) 0.600 % 0.0-0.9 [facility] Comment on above: IG% - Immature Granu locytes (promyelocytes, myelocytes and metamyelocytes) > 1% indicates that a LEFT SHIFT is Present. International normalized rat io (INR) calculationOrdered By: Jonelle Thayer on 11-27-2024 INR Coag (Bld) [Relative time] 1.3 {INR} [facility] - Chemistry and C hemistry - challengeOrdered By: Jonelle Thayer on 11-27-2024 AST [Catalytic activity/Vol] 53 U/L High <38 [facility] MCV (mean corpuscular volume ) determinationOrdered By: Jonelle Thayer 11-27-2024 MCV (RBC) [Entitic vol] 93.2 fL 80-94 [facility] Mean corpuscular hemoglobin (MCH) determinationOrdered By: Jonelle Thayer on 11-27-2024 MCH (RBC) [Entitic mass] 30.6 pg 27.0-32.0 [facility] Mean corpuscular hemoglobin concentration (MCHC) determinationOrdered By: Jonelle Thayer on 11-27-2024 MCHC (RBC) [Mass/Vol] 32.8 g/dL 32-36 [facility] Mean platelet volume determi nationOrdered By: Jonelle Thayer on 11-27-2024 Platelet mean volume (Bld) [Entitic vol] 9.0 fL 6.2-12.0 [facility] Monocyte percentageOrdered B y: Jonelle Thayer on 11-27-2024 Monocytes/100 WBC (Bld) 11.9 % High 0-10 [facility] Neutrophil percentageOrdered By: Jonelle Thayer on 11-27-2024 Neutrophils/100 WBC (Bld) 71.1 % High 47-70 [facility] Nucleated red blood cell per centageOrdered By: Jonelle Thayer on 11-27-2024 Nucleated RBC/100 WBC (Bld) [Ratio] 0 % 0-5 [facility] PSA,Total- Diagnosticon 11-11 PSA, DIAGNOSTIC 14.30 ng/mL High 0.00-4.00 [facility] Comment on above: Result Comment: This test was performed using the [employer] tPSA method. Measured values of a patient??sample can vary depending on the testing procedure used. PSA values determined on patient samples by different testing procedures cannot be used interchangeably. If there is a change in PSA assays while monitoring therapy, sequential testing should be performed to confirm baseline values. Performed By: #### L 100.0100, L501.9940, L3300.0700, L300.3900, L500.4050, L3100.2300 ####[facility] [address] [place], [address] Platelet countOrdered By: Zachary Thayer on 11-27-2024 Platelets (Bld) [#/Vol] 267 10*3/uL 150-450 [facility] Potassium measurement (mass/ volume)Ordered By: Jonelle Thayer on 11-27-2024 Potassium (Unsp spec) [Mass/Vol] 4.3 mmol/L 3.3-5.1 [facility] Prothrombin Time w/INRon INR Coag (PPP) [Relative time] 1.3 {INR} Normal [facility] Comment on above: Performed By: #### L 100.0100, L501.9940, L3300.0700, L300.3900, L500.4050, L3100.2300 ####[facility] [address] [place], [place], [id number] PT Coag (PPP) [Time] 16.1 s High 11.7-14.9 [facility] Comment on above: Performed By: #### L 100.0100, L501.9940, L3300.0700, L300.3900, L500.4050, L3100.2300 ####[facility] [address] [place], [place], [id number] Prothrombin timeOrdered By: Jonelle Thayer on 11-27-2024 PT Coag (PPP) [Time] 16.1 s High 11.7-14.9 [facility] RBC Auto (Bld) [#/Vol]Ordere d By: Jonelle Thayer on 11-27-2024 RBC (Bld) [#/Vol] 3.69 10*6/uL Low 4.6-6.2 [facility] Serum creatinine measurement (mass/volume)Ordered By: Jnoelle Thayer on 11-27-2024 Creatinine [Mass/Vol] 1.23 mg/dL High 0.70-1.20 [facility] Serum globulin measurementOr dered By: Jonelle Thayer on 11-27-2024 Globulin (S) [Mass/Vol] 2.7 g/dL 2.2-4.2 [facility] Serum glucose measurement (m ass/volume)Ordered By: Jonelle Thayer on 11-27-2024 Glucose [Mass/Vol] 128 mg/dL High 70-99 [facility] Serum or plasma alanine wang otransferase (ALT) measurementOrdered By: Jonelle Thayer on 11-27-2024 ALT [Catalytic activity/Vol] 77 U/L High <47 [facility] Serum or plasma albumin timoteo urement (mass/volume)Ordered By: Jonelle Thayer on 11-27-2024 Albumin [Mass/Vol] 3.8 g/dL 3.4-4.8 [facility] Serum or plasma albumin/glob ulin mass ratioOrdered By: Jonelle Thayer on 11-27-2024 Albumin/Globulin [Mass ratio] 1.4 {ratio} 0.9-2.4 [facility] Serum or plasma alkaline gayatri sphatase measurementOrdered By: Jonelle Thayer on 11-27-2024 ALP [Catalytic activity/Vol] 319 U/L High 40-129 [facility] Serum or plasma calcium timoteo urement (mass/volume)Ordered By: Jonelle Thayer on 11-27-2024 Calcium [Mass/Vol] 9.3 mg/dL 7.6-11.0 [facility] Serum or plasma carcinoembry onic antigen measurement (mass/volume)Ordered By: Jonelle Thayer on 11-27-2024 Carcinoembryonic Ag [Mass/Vol] 1.2 ng/mL 0.0-4.7 [facility] Comment on above: Nonsmokers <3.9 Smok ers <5.6[facility] [employer] Electrochemiluminescence Immunoassay(ECLIA)Values obtained with different assay methods or kitscannot be used interchangeably. Results cannot beinterpreted as absolute evidence of the presence orabsence of malignant disease. Serum or plasma urea nitroge n measurement (mass/volume)Ordered By: Jonelle Thayer on 11-27-2024 Urea nitrogen [Mass/Vol] 19 mg/dL 4-19 [facility] Sodium levelOrdered By: Veronika Thayer on 11-27-2024 Sodium [Moles/Vol] 139 mmol/L 133-145 [facility] Total proteinOrdered By: Rubina Thayer on 11-27-2024 Protein [Mass/Vol] 6.4 g/dL 5.9-8.4 [facility] White blood cell (WBC) count Ordered By: Jonelle Thayer on 11-27-2024 WBC (Bld) [#/Vol] 8.3 10*3/uL 4.4-11.0 [facility] Abdomen Limitedon 11-25-2024 Abdomen Limited [facility] Imaging Services [address], [place] [address] Abdomen Limited MR#: [id number] Acct: [id number] Name: ANYA KAMARA Rep #: [id number] : 1950 M 74 From: Arturo Hollingsworth MD PCP: Dr. Ezekiel Caro DO Status: REG CLI Study: Abdomen Limited Date of Exam: 11/25/24 Exam# [id number] Ordering Dr: Jonelle Thayer DRAWING SUPERVISORFareed PROCEDURE: ABDOMEN LIMITED 11/25/2024 REASON FOR EXAM: ABDOMINAL PAIN, ELEVATED ALP TECHNIQUE: ABDOMEN LIMITED COMPARISON: None FINDINGS: Liver: The liver has multiple heterogeneous lesions with the appearance of diffuse metastatic disease with a largest in the left hepatic lobe measuring a proximally 8 cm and in the right hepatic lobe measuring approximately 8 cm x 6 cm. Gallbladder: There is no gallbladder wall thickening or stone. Common bile duct: 4 mm . Pancreas: Unremarkable Kidneys: The right kidney measures 11.4 cm. Peritoneal Findings: There is no free fluid. US/Abdomen Limited IMPRESSION: The liver has multiple heterogeneous lesions with the appearance of diffuse metastatic disease with a largest in the left hepatic lobe measuring a proximally 8 cm and in the right hepatic lobe measuring approximately 8 cm x [address] correlation is recommended. Critical results were discussed with Dr Thayer by Edel at the time of dictation. Reading Location: [facility] CC: PATTI Thayer; Dr. Ezekiel Caro DO Hassock Maker: Signed Normal [facility] 11-21-2024 CNPN Telephone (JENNIFER) -- ANYA KAMARA ([id number]) 1950 M [facility] Date Time Provider Department 11/21/24 JOSELYN REYES During your visit today, we recorded the following information about you: Dirk Thayer RN 11/21/2024 3:22 PM Signed Pt called in with update on HR for Cristian Reyes APRN. RIB PULLER HR this AM ranged from 101-133 over [...] will use the data collected so far. Dikr Thayer RN 11/24/2024 10:01 AM Addendum Called pt, No answer. Left VM with provider message below: Please ask him to continue taking a whole tablet twice a day for the next 3-4 days. Then call us on Sunday or Sunday to let us know how his heart rate is. Per Joselyn Reyes APRN.RIB PULLER Allergies As of Date: 11/21/2024 Noted Allergy Reaction PERCOCET (OXYCODONE-ACETAMINOPHEN)0 09/15/2016 9 - Itching Comments: Pt took 2 [...] 01/07/2022 Obesity (BMI 35.0-39.9 without comorbidity) [E6*01/07/2022 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 current use of anticoagulant [Z79.01] 01/07/2022 Elevated [...] Encounter Status:Closed by DIRK THAYER on 11/21/24 [facility] WALEOVdelores 11-20-2024 CN Office Visit (JENNIFER ) -- ANYA KAMARA ([id number]) 1950 M [facility] Date Time Provider Department 11/20/24 1:30 PM JOSELYN REYES During your visit today, we recorded the following information about you: Pulse Blood pressure Weight 134/minute 120/72 116 kg Joselyn Reyes APRN.CNP 11/20/2024 2:25 PM Signed [facility] [place] [facility] Department of Cardiovascular Medicine SECTION [...] That was done on November 07 at [facility]. The patient is a 74-year-old male with [...] missed heartbeats. He is currently wearing a production department supervisor, which was applied on the and is [...] expensive. He has not yet consulted a soda clerk. He also reports stomach pain, which he [...] once daily. thiamine (VITAMIN B1) 100 mg ta (more content not included)... Normal [facility] ECG COMPLETEon 11-20-2024 ECG COMPLETE Ventricular Rate : 1 33 BPM Atrial Rate : 133 BPM P-R Interval : 144 ms QRS Duration : 108 ms Q-T Interval : 342 ms QTC Calculation(Bazett) : 509 ms Calculated R Watkins : -59 degrees Calculated T Watkins : 89 degrees ATRIAL TACHYCARDIA LEFT ANTERIOR FASCICULAR BLOCK NONSPECIFIC ST ABNORMALITY ABNORMAL ECG Confirmed by MD DANUTA, QARAB ([id number]) on 12/09/2024 4:24:41 PM NAME : ANYA KAMARA PID : [id number] : 1950 Gender : Male Race : ORD : [id number] Procedure Date : Nov 20 2024 14:03:25 Edit Date : Dec 09 2024 16:24:44 Diagnosis: ATRIAL TACHYCARDIA LEFT ANTERIOR FASCICULAR BLOCK NONSPECIFIC ST ABNORMALITY ABNORMAL ECG Confirmed by MD TIPTON QARAB ([id number]) on 12/09/2024 4:24:41 PM Test Reason : Post-OP Location : 211 : [facility] [id number] Overread By : MD TPITON QARAB Edited By : MD TIPTON QARAB Referred By : DIO ANAYA Acquired by : urvashi pruett lpn, Swapnil [facility] Gastroenterology Visit Repor ton 11-17-2024 Gastroenterology Visit Report [facility] Gastroenterology [address] [place] [address] OFFICE VISIT Date of Service: 11/17/24 MR#: [id number] Acct: [id number] Name: ANYA KAMARA Rep #: [id number] : 1950 Provider: PATTI roach Age/Sex: 74/M Location: [facility] Status: Signed with Addenda ADDENDUM by PATTI Thayer on 11/19/24 at 1329 HPI Details: ANYA KAMARA, is a 74 M who presented blood test results for diagnostic support. Drawn 10.17.24: W-5.4 hgb-12.5 hct-37.5 MCV-92.9 AST-40 ALT-70 ALP-247 B-OdctINA-910 PSA-11.18 VitD 25-53.9 hgb A1c- 6.2 Provided repeat labs drawn 11.07.24: AST-28 ALT-56 ALP-253 BNP 648 11/19/24 1329 Date Jonelle Thayer cc: * Signed Intake Intake Visit Reasons: Gastroesophageal reflux disease (GERD) Allergies No Known Allergies Allergy (Verified 07/26/19 15:11) Medications ???Medication ???Instructions ???Recorded ???Confirmed ???Type finasteride 5 mg tablet 5 mg PO DAILY 07/26/19 11/17/24 Hi story lorazepam 0.5 mg tablet 0.5 mg PO DAILY PRN PRN Anxiety 11/17/24 History losartan 100 mg tablet 100 mg PO DAILY 07/26/19 11/17/24 History tamsulosin 0.4 mg capsule 0.4 mg PO DAILY 07/26/19 11/17/24 History apixaban 5 mg tablet (Eliquis) 5 mg PO BID 11/17/24 11/17/24 Hist ory dofetilide 125 mcg capsule 125 mcg PO BID 11/17/24 11/17/24 H istory esomeprazole magnesium 40 mg 40 mg PO BID #60 caps 11/17/2412/05 Rx capsule,delayed release famotidine 40 mg tablet 40 mg PO QHS #30 tabs 11/17/2412/05 Rx fluticasone furoate 100 1 inh inhalation QDAY 11/17/2412/05 History mcg-vilanterol 25 mcg/dose inhalation powder (Breo Ellipta) metoprolol succinate 25 mg 12.5 mg PO DAILY 11/17/24 11/17/24 History tablet,extended release 24 hr Have you fallen in the past year?: No PFSH Medical History Murmur, heart IBS (irritable bowel syndrome) High blood pressure Heart disease Cancer Atrial fibrillation Arthritis Family History Father Alcoholism Social History Smoking Status: Never smoker alcohol intake: current substance use type: does not use HPI HPI Details: ANYA KAMARA, is a 74 M who presents to the office today for establishment with [facility] regarding concerns for GERD and epigastric abdominal pain. Per PCP office note, his medication was changed from famotidine 40mg twice to pantoprazole 40mg twice daily due to no improvement in symptoms. He denies relief of symptoms with pantoprazole either. He states that there is no correlation between foods and timing of abdominal pain. He denies radiation of pain, nausea, and vomiting. He states, sometimes eating will make it better, sometimes worse. I never know. He admits to drinking alcohol 1 to 3 times a week, usually a glass of wine and pomegranate juice. He reports previously having a pH study with an NG tube secured in his nose 30 years ago and then had his upper stomach valve tightened to reduce the amount of acid coming out. He denies ever using tobacco, marijuana, or illicit drugs. He reports chronic dry cough, throat clearing, sinus drainage, and heartburn. 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 He denies difficulty chewing and swallowing, reflux, bloating, excess gas, constipation, diarrhea, hematochezia, and melena. He reports just having a cardiac ablation last week. ROS Const Constitutional: No fatigue, fever(s) or weight change ENT ENT: Positive for abnormal hearing, hearing loss and post nasal drip; No difficulty swallowing Resp Respiratory: Positive for cough Gastro GI: Positive for abdominal pain, bloating and heartburn; No belching, change in bowel habits, change in stool character, coffee ground emesis, constipation, cramping, diarrhea, difficulty swallowing, feeling full early, excessive flatus, incontinent of stools, Vomiting blood/hematemesis, Blood in stool, loose stools, Black,tarry stools, nausea/dyspepsia, pain with swallowing, vomiting or other Musc Musculoskeletal: No joint pain Skin Skin: No yellowing of the eye or itchy eyes Neuro Neurology: Positive for abnormal hearing Psych Psychiatric: No anxiety and No depression Endo Endocrine: No fatigue or weight change Aller/Imm Allergy/Immunologic: No food intolerance or itchy eyes Bartolo/Lymp Hematologic/Lymphatic: No easy bleeding or easy bruising Exam Const General: cooperative, healthy appearing, comfortable and no acute distress Nutritional Appearance: overweight Orientation: alert and oriented x3 [facility] (more content not included)... Normal [facility] 11-11-2024 [facility] Telephone (VIVIANE) -- ANYA KAMARA ([id number]) 1950 [facility] Date Time Provider Department 11/11/24 [...] of Date: 11/11/2024 Noted Allergy Reaction PERCOCET (OXYCODONE-ACETAMINOPHEN)0 09/15/2016 9 - Itching Comments: Pt took 2 [...] 01/07/2022 Obesity (BMI 35.0-39.9 without comorbidity) [E6*01/07/2022 alf current use of anticoagulant [Z79.01] 01/07/2022 Elevated [...] Encounter Status:Closed by GEORGE CORTES on 11/11/24 [facility] ANES POSTPROC EVALon 11-07-2 025 ANES POSTPROC EVAL HNO ID: [id number] Author: MADISYN LOZANO MD Service: ? Author Type: Anesthesiologist Type: Anesthesia Postprocedure Evaluation Filed: 11/07/2024 15:33 Note Text: POST ANESTHESIA EVALUATION NOTE : 1950 Procedure Summary Date: 11/07/24 Room / Location: [address] EP LAB Anesthesia Start: 1114 Anesthesia Stop: 1415 Procedure: COMPRE EP EVAL [...] November 07, 2024 TIME: 3:32 PM CSN: [id number] Normal [facility] ANES PRE-OPon 11-07-2024 ANES PRE-OP HNO ID: [id number] Author: MADISYN LOZANO MD Service: ? Author Type: Anesthesiologist Type: Anesthesia Preprocedure Evaluation Filed: 11/07/2024 11:27 Note Text: ANESTHESIOLOGY DAY OF SURGERY NOTE : 1950 Procedure Information Anesthesia Start Date/Time: 11/07/24 1115 Procedure: COMPRE EP EVAL ABLTJ ATR FIB PULM VEIN ISOLATION Location: [address] [facility] LAB Surgeons: Dio Anaya MD Estimated body [...] Whitmore present: yes Lip Bite Test: II Microretrognathia/Micronag thia/Recessed Chin: Yes Additional exam findings: no II - ANESTHESIA PLAN ASA Score: 3 Anesthetic Plan: general Airway type: ETT NPO Status: adequate Beta Naomi Monitoring Plan Monitoring plan: standard ASA. Post Procedure Analgesic Plan Postoperative analgesic plan: multimodal analgesia. Informed Consent Anesthetic risks, benefits, alternatives, personnel and consent discussed: yes. Patient / Responsible Republican agrees to proceed: yes Patient / Surrogate [...] Time BP 141/69 11/07/24 0953 Pulse 55 11/07/24 0953 Resp Temp 36.7 ?C (98.1 ?F) 11/07/24 0953 SpO2 97 % 11/07/24 09 No current facility-administered medications on file as [...] November 07, 2024 TIME: 11:26 AM CSN: [id number] Normal [facility] BRIEF OP NOTon 11-07-2024 BRIEF OP NOT HNO ID: [id number] Author: DENNISE WALDRON MD Service: Electrophysiology Author Type: Fellow Type: Brief Op Note Filed: 11/07/2024 13:51 Note Text: [facility] ELECTROPHYSIOLOGY BRIEF PROCEDURE NOTE Anya Kamara [id number] 74yo M with obesity, sleep apnea, AAA, [...] to discharge - apixaban 5 and full-dose [id number] to be given in recovery. Full report will follow in Epic: [Chart > Cardiac] For Questions/Orders 5PM - 8AM or Weekends (AFTER HOURS) please page: On-call Pigment Mixer: [id number] Normal [facility] Comprehensive metabolic 2000 panelon 11-07-2024 Albumin [Mass/Vol] 3.9 g/dL Normal 3.9-4.9 [facility] Comment on above: Order Comment: Speci men Type: BLOOD SPECIMENOrdering Facility: [facility] Address: [address] [place] [address] Performed By: #### 2 4323-8, 43398-8 ####[facility] LABCLIA [id number] [place] [id number] [place] ALP [Catalytic activity/Vol] 253 U/L High 38-113 [facility] Comment on above: Order Comment: Speci men Type: BLOOD SPECIMENOrdering Facility: [facility] Address: [address] [place] [address] Performed By: #### 2 4323-8, 33186-9 ####[facility] LABCLIA [id number] [place] [address] [place] ALT [Catalytic activity/Vol] 56 U/L High 10-54 [facility] Comment on above: Order Comment: Speci men Type: BLOOD SPECIMENOrdering Facility: [facility] Address: [address] [place] [address] Performed By: #### 2 4323-8, 05627-0 ####[facility] LABCLIA [id number] [place] [address] [place] Anion gap [Moles/Vol] 11 mmol/L Normal 8-15 [facility] Comment on above: Order Comment: Speci men Type: BLOOD SPECIMENOrdering Facility: [facility] Address: [address] [place] [address] Performed By: #### 2 4323-8, 26030-4 ####[facility] LABCLIA [id number] [place] [address] [place] AST [Catalytic activity/Vol] 28 U/L Normal 14-40 [facility] Comment on above: Order Comment: Speci men Type: BLOOD SPECIMENOrdering Facility: [facility] Address: [address] [place] [id number] Performed By: #### 2 4323-8, 07558-1 ####[facility] LABCLIA [id number] [address] [address] [place] Bilirubin [Mass/Vol] 0.7 mg/dL Normal 0.2-1.3 [facility] Comment on above: Order Comment: Speci men Type: BLOOD SPECIMENOrdering Facility: [facility] Address: [address] [place] [address] Performed By: #### 2 4323-8, 71416-3 ####[facility] LABCLIA [id number] [place] [address] [place] Calcium [Mass/Vol] 9.4 mg/dL Normal 8.5-10.2 [facility] Comment on above: Order Comment: Speci men Type: BLOOD SPECIMENOrdering Facility: [facility] Address: [address] [place], [place] [address] Performed By: #### 2 4323-8, 24251-1 ####[facility] LABCLIA [id number] [place] [address] [place] Chloride [Moles/Vol] 106 mmol/L Normal 98-107 [facility] Comment on above: Order Comment: Speci men Type: BLOOD SPECIMENOrdering Facility: [facility] Address: [address] [place], [place] [address] Performed By: #### 2 4323-8, 32345-4 ####[facility] LABCLIA [id number] [place] [address] [place] CO2 [Moles/Vol] 24 mmol/L Normal 22-30 [facility] Comment on above: Order Comment: Speci men Type: BLOOD SPECIMENOrdering Facility: [facility] Address: [address] [place], [place] [address] Performed By: #### 2 4323-8, 77745-6 ####[facility] LABIA [id number] [place] [address] [place] Creatinine [Mass/Vol] 1.12 mg/dL Normal 0.73-1.22 [facility] Comment on above: Order Comment: Ann montemayor Type: BLOOD SPECIMENOrdering Facility: [facility] Address: [address] [place] [address] Performed By: #### 2 4323-8, 97410-7 ####[facility]BR[facility] [id number] [place] [address] [place] Creatinine and Glomerular filtration rate.predicted panel (S/P/Bld) 69 mL/min/1.73m??? Normal >=60 [facility] Comment on above: Order Comment: Ann montemayor Type: BLOOD SPECIMENOrdering Facility: [facility] Address: [address] [place] [address] Result Comment: Juanis mated Glomerular Filtration Rate (eGFR) is calculated using the 2020 CKD-EPI creatinine equation. This equation utilizes serum creatinine, sex, and age as parameters. The creatinine assay has traceable calibration to isotope dilution-mass spectrometry. Refer to KDIGO guidelines for clinical interpretation. In patients with unstable renal function, e.g. those with acute kidney injury, the eGFR may not accurately reflect actual GFR. Performed By: #### 2 4323-8, 24801-0 ####[facility] LABIA [id number] [place] [address] [place] Glucose [Mass/Vol] 137 mg/dL High 74-99 [facility] Comment on above: Order Comment: Ann montemayor Type: BLOOD SPECIMENOrdering Facility: [facility] Address: [address] [place] [address] Result Comment: The [place] Diabetes Association (ADA) provides guidance for cutoff [...] Standards of Medical Care in Diabetes 2016, [place] [employer] Association. Diabetes Care. 2016.39(Suppl 1). Performed By: #### 2 4323-8, 30927-9 ####[facility] LABCLIA [id number] [address] [address] [place] Potassium [Moles/Vol] 4.2 mmol/L Normal 3.7-5.1 [facility] Comment on above: Order Comment: Speci men Type: BLOOD SPECIMENOrdering Facility: [facility] Address: [address] [place] [address] Performed By: #### 2 4323-8, 02420-4 ####[facility] LABIA [id number] [address] [address] [place] Protein [Mass/Vol] 6.5 g/dL Normal 6.3-8.0 [facility] Comment on above: Order Comment: Speci men Type: BLOOD SPECIMENOrdering Facility: [facility] Address: [address] [place] [address] Performed By: #### 2 4323-8, 62651-2 ####[facility] LABCLIA [id number] [address] [address] [place] Sodium [Moles/Vol] 141 mmol/L Normal 136-144 [facility] Comment on above: Order Comment: Speci men Type: BLOOD SPECIMENOrdering Facility: [facility] Address: [address] [place] [address] Performed By: #### 2 4323-8, 76822-7 ####[facility] LABCLIA [id number] [address] [address] [place] Urea nitrogen [Mass/Vol] 17 mg/dL Normal 9-24 [facility] Comment on above: Order Comment: Speci men Type: BLOOD SPECIMENOrdering Facility: [facility] Address: [address] [place] [address] Performed By: #### 2 4323-8, 70017-4 ####[facility] LABCLIA [id number] [address] [id number] 11-07-2024 ECG01 Ventricular Rate : 5 5 BPM Atrial Rate : 55 BPM P-R Interval : 202 ms QRS Duration : 120 ms Q-T Interval : 480 ms QTC Calculation(Bazett) : 459 ms Calculated P Watkins : 87 degrees Calculated R Watkins : -51 degrees Calculated T Watkins : -12 degrees SINUS BRADYCARDIA WITH PREMATURE SUPRAVENTRICULAR COMPLEXES NONSPECIFIC INTRAVENTRICULAR CONDUCTION DELAY LEFT AXIS DEVIATION ABNORMAL ECG Confirmed by NEENA WOODSON MD ([id number]) on 12/28/2024 9:22:46 AM NAME : ANYA KAMARA PID : [id number] : 1950 Gender : Male Race : ORD : Procedure Date : Nov 07 2024 14:18:50 Edit Date : Dec 28 2024 09:22:48 Diagnosis: SINUS BRADYCARDIA WITH PREMATURE SUPRAVENTRICULAR COMPLEXES NONSPECIFIC INTRAVENTRICULAR CONDUCTION DELAY LEFT AXIS DEVIATION ABNORMAL ECG Confirmed by NEENA WOODSON MD ([id number]) on 12/28/2024 9:22:46 AM Test Reason : Location : [address] : [place] [address] Overread By : NEENA WOODSON MD Edited By : NEENA WOODSON MD Referred By : DIO ANAYA Acquired by : J33, Normal [facility] NT-proBNP [facility] 11-07 Natriuretic peptide.B prohormone N-Terminal [Mass/Vol] 658 pg/mL High <450 [facility] Comment on above: Order Comment: Speci men Type: BLOOD SPECIMENOrdering Facility: [facility] Address: [address] [place] [address] Performed By: #### 2 4323-8, 04628-3 ####[facility] LABCLIA [id number] [place] [address] [place] [address] [place] Basic metabolic 2000 panelon 10-31-2024 Anion gap [Moles/Vol] 10 mmol/L Normal 8-15 [facility] Comment on above: Order Comment: Speci men Type: BLOOD SPECIMENOrdering Facility: [facility] Address: [address] [place] [address] Performed By: #### 2 4321-2 ####[facility] LABORATORYCLIA [id number] [place] [address] [place] Calcium [Mass/Vol] 9.5 mg/dL Normal 8.5-10.2 [facility] Comment on above: Order Comment: Speci men Type: BLOOD SPECIMENOrdering Facility: [facility] Address: [address] [place] [address] Performed By: #### 2 4321-2 ####[facility] LABORATORYCLIA [id number] [place] [address] [place] Chloride [Moles/Vol] 103 mmol/L Normal 98-107 [facility] Comment on above: Order Comment: Speci men Type: BLOOD SPECIMENOrdering Facility: [facility] Address: [address] [place] [address] Performed By: #### 2 4321-2 ####[facility] LABORATORYCLIA [id number] [place] [address] [place] CO2 [Moles/Vol] 29 mmol/L Normal 22-30 [facility] Comment on above: Order Comment: Speci men Type: BLOOD SPECIMENOrdering Facility: [facility] Address: [address] [place] [address] Performed By: #### 2 4321-2 ####[facility] LABORATORYCLIA [id number] [place] [address] [place] Creatinine [Mass/Vol] 1.22 mg/dL Normal 0.73-1.22 [facility] Comment on above: Order Comment: Speci men Type: BLOOD SPECIMENOrdering Facility: [facility] Address: [address] [place] [address] Performed By: #### 2 4321-2 ####[facility] LABORATORYCLIA [id number] [place] [address] [facility] Creatinine and Glomerular filtration rate.predicted panel (S/P/Bld) 62 mL/min/1.73m??? Normal >=60 [facility] Comment on above: Order Comment: Ann montemayor Type: BLOOD SPECIMENOrdering Facility: [facility] Address: [address] [place] [address] Result Comment: Juanis mated Glomerular Filtration Rate (eGFR) is calculated using the 2020 CKD-EPI creatinine equation. This equation utilizes serum creatinine, sex, and age as parameters. The creatinine assay has traceable calibration to isotope dilution-mass spectrometry. Refer to KDIGO guidelines for clinical interpretation. In patients with unstable renal function, e.g. those with acute kidney injury, the eGFR may not accurately reflect actual GFR. Performed By: #### 2 4321-2 ####[facility] LABORATORYCLIA [id number] [place] [address] [place] Glucose [Mass/Vol] 161 mg/dL High 74-99 [facility] Comment on above: Order Comment: Ann montemayor Type: BLOOD SPECIMENOrdering Facility: [facility] Address: [address] [place] [address] Result Comment: The [place] Diabetes Association (ADA) provides guidance for cutoff [...] Standards of Medical Care in Diabetes 2016, [place] [employer]. Diabetes Care. 2016.39(Suppl 1). Performed By: #### 2 4321-2 ####[facility] LABORATORYCLIA [id number] [place] [address] [place] Potassium [Moles/Vol] 4.9 mmol/L Normal 3.7-5.1 [facility] Comment on above: Order Comment: Speci men Type: BLOOD SPECIMENOrdering Facility: [facility] Address: [address] [place] [address] Performed By: #### 2 4321-2 ####[facility] HOSPITAL LABORATORYCLIA [id number] [place] [address] [place] Sodium [Moles/Vol] 142 mmol/L Normal 136-144 [facility] Comment on above: Order Comment: Speci men Type: BLOOD SPECIMENOrdering Facility: [facility] Address: [address] [place] [address] Performed By: #### 2 4321-2 ####JODEEMERCEDEZ [facility] LABORATORYCLIA [id number] [place] [address] [place] Urea nitrogen [Mass/Vol] 24 mg/dL Normal 9-24 [facility] Comment on above: Order Comment: Speci men Type: BLOOD SPECIMENOrdering Facility: [facility] Address: [address] [place] [address] Performed By: #### 2 4321-2 ####YANYVARGHESE [facility] LABORATORYCLIA [id number] [place] [address] [place] CBC panel Auto (Bld)on 10-31 Erythrocyte distribution width (RBC) [Ratio] 13.8 % Normal 11.5-15.0 [facility] Comment on above: Order Comment: Speci men Type: BLOOD SPECIMENOrdering Facility: [facility] Address: [address] [place] [address] Performed By: #### 5 8410-2 ####YANYVARGHESE [facility] LABORATORYIA [id number] [address] [place] Hematocrit (Bld) [Volume fraction] 40.6 % Normal 39.0-51.0 [facility] Comment on above: Order Comment: Speci men Type: BLOOD SPECIMENOrdering Facility: [facility] Address: [address] [place] [address] Performed By: #### 5 8410-2 ####JODEEMERCEDEZ [facility] LABORATORYCLIA [id number] [place] [address] [place] [facility] Hemoglobin (Bld) [Mass/Vol] 13.1 g/dL Normal 13.0-17.0 [facility] Comment on above: Order Comment: Speci men Type: BLOOD SPECIMENOrdering Facility: [facility] Address: [address] [place] [address] Performed By: #### 5 8410-2 ####REY [facility] LABORATORYCLIA [id number] [place] [address] [place] MCH (RBC) [Entitic mass] 31.1 pg Normal 26.0-34.0 [facility] Comment on above: Order Comment: Speci men Type: BLOOD SPECIMENOrdering Facility: [facility] Address: [address] [place] [address] Performed By: #### 5 8410-2 ####[facility] LABORATORYCLIA [id number] [place] [address] [place] MCHC (RBC) [Mass/Vol] 32.3 g/dL Normal 30.5-36.0 [facility] Comment on above: Order Comment: Speci men Type: BLOOD SPECIMENOrdering Facility: [facility] Address: [address] [place] [address] Performed By: #### 5 8410-2 ####REY [facility] LABORATORYCLIA [id number] [address] [place] MCV (RBC) [Entitic vol] 96.4 fL Normal 80.0-100.0 [facility] Comment on above: Order Comment: Speci men Type: BLOOD SPECIMENOrdering Facility: [facility] Address: [address] [place] [address] Performed By: #### 5 8410-2 ####REY [facility] LABORATORYCLIA [id number] [place] [address] [place] Nucleated RBC (Bld) [#/Vol] 10*3/uL Normal <0.01 [facility] Comment on above: Order Comment: Speci men Type: BLOOD SPECIMENOrdering Facility: [facility] Address: [address] [place] [address] Performed By: #### 5 8410-2 ####[facility] LABORATORYIA [id number] [place] [address] [place] Platelet mean volume (Bld) [Entitic vol] 9.4 fL Normal 9.0-12.7 [facility] Comment on above: Order Comment: Speci men Type: BLOOD SPECIMENOrdering Facility: [facility] Address: [address] [place] [address] Performed By: #### 5 8410-2 ####JODEEVARGHESE [facility] CENTERIA [id number] [place] [address] [place] Platelets (Bld) [#/Vol] 266 10*3/uL Normal 150-400 [facility] Comment on above: Order Comment: Speci men Type: BLOOD SPECIMENOrdering Facility: [facility] Address: [address] [place] [address] Performed By: #### 5 8410-2 ####REY [facility]ENTERIA [id number] [place] [address] [place] RBC (Bld) [#/Vol] 4.21 10*6/uL Normal 4.20-6.00 [facility] Comment on above: Order Comment: Speci men Type: BLOOD SPECIMENOrdering Facility: [facility] Address: [address] [place] [address] Performed By: #### 5 8410-2 ####[facility] LABORATORYIA [id number] [place] [address] [place] WBC (Bld) [#/Vol] 8.81 10*3/uL Normal 3.70-11.00 [facility] Comment on above: Order Comment: Speci men Type: BLOOD SPECIMENOrdering Facility: [facility] Address: [address] [place] [address] Performed By: #### 5 8410-2 ####[facility] LABORATORYCLIA [id number] [place] [address] [place] CONFIRM BLOOD TYPEon ABO AB Normal [facility] Comment on above: Order Comment: Speci men Type: BLOOD SPECIMENOrdering Facility: [facility] Address: [address] [place] [address] Performed By: #### C ONABO ####CC MAIN BLOOD BANKCLIA [id number] [address] [place] Rh Nom (Bld) Positive Normal [facility] Comment on above: Order Comment: Speci men Type: BLOOD SPECIMENOrdering Facility: [facility] Address: [address] [place] [address] Performed By: #### C ONABO ####CC MAIN BLOOD BANKCLIA [id number] [place] [address] [place] TYPE AND SCREEN,30 DAYon ABO AB Normal [facility] Comment on above: Order Comment: Speci men Type: BLOOD SPECIMENOrdering Facility: [facility] Address: [address] [place] [address] Performed By: #### T SCR30 ####CC MAIN BLOOD BANKCLIA [id number] [address] [place] Rh Nom (Bld) Positive Normal [facility] Comment on above: Order Comment: Speci men Type: BLOOD SPECIMENOrdering Facility: [facility] Address: [address] [place] [address] Performed By: #### T SCR30 ####CC MAIN BLOOD BANKCLIA [id number] [address] [place] APOBon 10-21-2024 Apolipoprotein B [Mass/Vol] 86 mg/dL Normal <90 [facility] Comment on above: Result Comment: Mary Kay guzman < 90 Borderline High 90 - 99 High 100 - 130 Very High >130 ASCVD RISK THERAPEUTIC TARGET CATEGORY APO B (mg/dL) Very High Risk <80 (if extreme risk <70) High Risk <90 Moderate Risk <90 Performed At: [facility] [id number] Ghulam Kenny MD Ph:[phone] Performed By: #### C MP, LIPID, GFR #### [place] [address] [place], [place] [address] CNOVon 10-20-2024 CNOV Office Visit (JENNIFER ) -- ANYA KAMARA ([id number]) 1950 M [facility] Date Time Provider Department 10/20/24 8:30 AM JOSELYN REYES During your visit today, we recorded the following information about you: Pulse Blood pressure Weight 63/minute 122/78 117.5 kg Joselyn Reyes APRN.CNP 10/20/2024 9:09 AM Signed [facility] Department of Cardiovascular Medicine SECTION OF CLINICAL CARDIOLOGY OUTPATIENT VISIT DATE October 20, 2024 OUTPATIENT VISIT TYPE ESTABLISHED PRIMARY CARE PHYSICIAN: Ezekiel Caro [address] [place] [address] REFERRING PHYSICIAN: No referring provider defined for [...] Extremities: No clubbing, cyanosis, or edema. CARDIOVASCULAR (more content not included)... Normal [facility] .Auto Diffon 10-17-2024 Basophil, Absolute 0.0 10 3/mcL Normal 0.0-0.3 [facility] Comment on above: Performed By: #### 1 03175, LIPID, A1C, CBC, PBNP, VIDH, ANEU, GFR, PSA, TSHR, CMP, ADIFF #### [address] [address] Basophils/100 WBC (Bld) 0.7 % Normal 0.0-2.5 [facility] Comment on above: Performed By: #### 1 40636, LIPID, A1C, CBC, PBNP, VIDH, ANEU, GFR, PSA, TSHR, CMP, ADIFF #### [address] [address] Eosinophil, Absolute 0.1 10 3/mcL Normal 0.0-0.7 [facility] Comment on above: Performed By: #### 1 36438, LIPID, A1C, CBC, PBNP, VIDH, ANEU, GFR, PSA, TSHR, CMP, ADIFF #### [address] [address] Eosinophils/100 WBC (Bld) 1.7 % Normal 0.0-6.0 [facility] Comment on above: Performed By: #### 1 65037, LIPID, A1C, CBC, PBNP, VIDH, ANEU, GFR, PSA, TSHR, CMP, ADIFF #### [address] [address] Lymphocyte, Absolute 0.9 10 3/mcL Normal 0.9-4.3 [facility] Comment on above: Performed By: #### 1 77165, LIPID, A1C, CBC, PBNP, VIDH, ANEU, GFR, PSA, TSHR, CMP, ADIFF #### [address] [address] Lymphocytes/100 WBC (Bld) 17.0 % Low 20.0-40.0 [facility] Comment on above: Performed By: #### 1 55590, LIPID, A1C, CBC, PBNP, VIDH, ANEU, GFR, PSA, TSHR, CMP, ADIFF #### [address] [address] Monocyte, Absolute 0.6 10 3/mcL Normal 0.1-1.4 [facility] Comment on above: Performed By: #### 1 05306, LIPID, A1C, CBC, PBNP, VIDH, ANEU, GFR, PSA, TSHR, CMP, ADIFF #### [address] [address] Monocytes/100 WBC (Bld) 10.9 % Normal 2.0-13.0 [facility] Comment on above: Performed By: #### 1 67401, LIPID, A1C, CBC, PBNP, VIDH, ANEU, GFR, PSA, TSHR, CMP, ADIFF #### [place] [address] [place], [place] [address] Neutrophils/100 WBC (Bld) 69.7 % Normal 50.0-75.0 [facility] Comment on above: Performed By: #### 1 03672, LIPID, A1C, CBC, PBNP, VIDH, ANEU, GFR, PSA, TSHR, CMP, ADIFF #### [place] [address] [place], [place] [address] .GFRon 10-17-2024 Estimated Glomerular Filtration Rate 71 ml/min/1.73sqm Normal [facility] Comment on above: Result Comment: Stages of Chronic Kidney Disease [...] calculate the eGFR results. Performed By: #### 1 16420, LIPID, A1C, CBC, PBNP, VIDH, ANEU, GFR, PSA, TSHR, CMP, ADIFF #### [place] [address] [place], [place] [address] .NEUABSon 10-17-2024 Neutrophil, Absolute 3.8 10 3/mcL Normal 2.3-8.1 [facility] Comment on above: Performed By: #### 1 88898, LIPID, A1C, CBC, PBNP, VIDH, ANEU, GFR, PSA, TSHR, CMP, ADIFF #### [place] [address] [place] [address] A1Con 10-17-2024 Glucose [Mass/Vol] 131 mg/dL Normal [facility] Comment on above: Result Comment: Juanis mated Average Glucose calculated by equation ((28.7xA1C)-46.7) Estimated average glucose (eAG) is a calculated value from Hemoglobin A1C and is direct customer service representative of the average blood glucose level in the last 2-3 month period. Normal range: less than 114 mg/dL Performed By: #### C MP, LIPID, GFR #### [place] [id number] HbA1c (Bld) [Mass fraction] 6.2 % Normal 4.3-6.4 [facility] Comment on above: Performed By: #### C MP, LIPID, GFR #### [place] [id number] CBCon 10-17-2024 Erythrocyte distribution width (RBC) [Ratio] 13.8 % Normal 11.5-15.5 [facility] Comment on above: Performed By: #### 1 78919, LIPID, A1C, CBC, PBNP, VIDH, ANEU, GFR, PSA, TSHR, CMP, ADIFF #### [place] [id number] Hematocrit (Bld) [Volume fraction] 37.5 % Low 40.0-52.0 [facility] Comment on above: Performed By: #### 1 75459, LIPID, A1C, CBC, PBNP, VIDH, ANEU, GFR, PSA, TSHR, CMP, ADIFF #### [address] [address] Hgb 12.5 G/dL Low 13.0-17.5 [facility] Comment on above: Performed By: #### 1 87677, LIPID, A1C, CBC, PBNP, VIDH, ANEU, GFR, PSA, TSHR, CMP, ADIFF #### [address] [address] MCH (RBC) [Entitic mass] 30.9 pg Normal 27.0-33.0 [facility] Comment on above: Performed By: #### 1 95585, LIPID, A1C, CBC, PBNP, VIDH, ANEU, GFR, PSA, TSHR, CMP, ADIFF #### [address] [address] MCHC 33.3 G/dL Normal 32.0-36.0 [facility] Comment on above: Performed By: #### 1 94934, LIPID, A1C, CBC, PBNP, VIDH, ANEU, GFR, PSA, TSHR, CMP, ADIFF #### [address] [address] MCV (RBC) [Entitic vol] 92.9 fL Normal 81.0-100.0 [facility] Comment on above: Performed By: #### 1 78986, LIPID, A1C, CBC, PBNP, VIDH, ANEU, GFR, PSA, TSHR, CMP, ADIFF #### [address] [address] Platelet 263 10 3/mcL Normal 150-450 [facility] Comment on above: Performed By: #### 1 77120, LIPID, A1C, CBC, PBNP, VIDH, ANEU, GFR, PSA, TSHR, CMP, ADIFF #### [address] [address] Platelet mean volume (Bld) [Entitic vol] 7.5 fL Normal 6.4-10.5 [facility] Comment on above: Performed By: #### 1 24444, LIPID, A1C, CBC, PBNP, VIDH, ANEU, GFR, PSA, TSHR, CMP, ADIFF #### [address] [address] RBC 4.04 10 6/mcL Low 4.50-6.00 [facility] Comment on above: Performed By: #### 1 70616, LIPID, A1C, CBC, PBNP, VIDH, ANEU, GFR, PSA, TSHR, CMP, ADIFF #### [address] [address] WBC 5.4 10 3/mcL Normal 4.5-10.8 [facility] Comment on above: Performed By: #### 1 18748, LIPID, A1C, CBC, PBNP, VIDH, ANEU, GFR, PSA, TSHR, CMP, ADIFF #### [address] [address] CMPon 10-17-2024 Albumin Level 3.1 G/dL Low 3.4-4.8 [facility] Comment on above: Performed By: #### 1 18261, LIPID, A1C, CBC, PBNP, VIDH, ANEU, GFR, PSA, TSHR, CMP, ADIFF #### [address] [address] Albumin/Globulin [Mass ratio] 0.8 {ratio} Low 1.1-2.5 [facility] Comment on above: Performed By: #### 1 00333, LIPID, A1C, CBC, PBNP, VIDH, ANEU, GFR, PSA, TSHR, CMP, ADIFF #### [address] [address] ALP [Catalytic activity/Vol] 247 U/L High 40-135 [facility] Comment on above: Performed By: #### 1 99381, LIPID, A1C, CBC, PBNP, VIDH, ANEU, GFR, PSA, TSHR, CMP, ADIFF #### [address] [address] ALT [Catalytic activity/Vol] 70 U/L High 16-63 [facility] Comment on above: Performed By: #### 1 81526, LIPID, A1C, CBC, PBNP, VIDH, ANEU, GFR, PSA, TSHR, CMP, ADIFF #### [address] [address] AST [Catalytic activity/Vol] 40 U/L Normal 10-40 [facility] Comment on above: Performed By: #### 1 23463, LIPID, A1C, CBC, PBNP, VIDH, ANEU, GFR, PSA, TSHR, CMP, ADIFF #### [address] [address] Bili Total 0.4 mg/dL Normal 0.2-1.0 [facility] Comment on above: Result Comment: Use of this assay is not recommended for patients undergoing treatment with eltrombopag due to the potential for falsely elevated results. Performed By: #### 1 01776, LIPID, A1C, CBC, PBNP, VIDH, ANEU, GFR, PSA, TSHR, CMP, ADIFF #### [address] [address] BUN/Creatinine Ratio 11 ratio Normal 7-27 [facility] Comment on above: Performed By: #### 1 22150, LIPID, A1C, CBC, PBNP, VIDH, ANEU, GFR, PSA, TSHR, CMP, ADIFF #### [address] [address] Calcium [Mass/Vol] 9.0 mg/dL Normal 8.4-10.2 [facility] Comment on above: Performed By: #### 1 49819, LIPID, A1C, CBC, PBNP, VIDH, ANEU, GFR, PSA, TSHR, CMP, ADIFF #### [address] [address] Chloride [Moles/Vol] 105 mmol/L Normal 98-107 [facility] Comment on above: Performed By: #### 1 56113, LIPID, A1C, CBC, PBNP, VIDH, ANEU, GFR, PSA, TSHR, CMP, ADIFF #### [address] [address] CO2 [Moles/Vol] 29 mmol/L Normal 23-31 [facility] Comment on above: Performed By: #### 1 02930, LIPID, A1C, CBC, PBNP, VIDH, ANEU, GFR, PSA, TSHR, CMP, ADIFF #### [address] [address] Creatinine [Mass/Vol] 1.09 mg/dL Normal 0.67-1.17 [facility] Comment on above: Performed By: #### 1 00150, LIPID, A1C, CBC, PBNP, VIDH, ANEU, GFR, PSA, TSHR, CMP, ADIFF #### [address] [address] Electrolyte Balance 7.0 mEq/L Normal 4.0-15.0 [facility] Comment on above: Performed By: #### 1 99026, LIPID, A1C, CBC, PBNP, VIDH, ANEU, GFR, PSA, TSHR, CMP, ADIFF #### [address] [address] Globulin 3.9 G/dL Normal 2.7-4.4 [facility] Comment on above: Performed By: #### 1 31626, LIPID, A1C, CBC, PBNP, VIDH, ANEU, GFR, PSA, TSHR, CMP, ADIFF #### [address] [address] Glucose [Mass/Vol] 162 mg/dL High 83-110 [facility] Comment on above: Performed By: #### 1 88373, LIPID, A1C, CBC, PBNP, VIDH, ANEU, GFR, PSA, TSHR, CMP, ADIFF #### [address] [address] Potassium [Moles/Vol] 4.0 mmol/L Normal 3.5-5.1 [facility] Comment on above: Performed By: #### 1 40400, LIPID, A1C, CBC, PBNP, VIDH, ANEU, GFR, PSA, TSHR, CMP, ADIFF #### [address] [address] Sodium [Moles/Vol] 141 mmol/L Normal 136-145 [facility] Comment on above: Performed By: #### 1 32492, LIPID, A1C, CBC, PBNP, VIDH, ANEU, GFR, PSA, TSHR, CMP, ADIFF #### [address] [address] Total Protein 7.0 G/dL Normal 6.4-8.2 [facility] Comment on above: Performed By: #### 1 92095, LIPID, A1C, CBC, PBNP, VIDH, ANEU, GFR, PSA, TSHR, CMP, ADIFF #### [place] [address] [place], [place] [address] Urea nitrogen [Mass/Vol] 12 mg/dL Normal 7-18 [facility] Comment on above: Performed By: #### 1 41622, LIPID, A1C, CBC, PBNP, VIDH, ANEU, GFR, PSA, TSHR, CMP, ADIFF #### [place] [address] [place], [place] [address] LABORATORYOrdered By: Jose Milian on 10-17-2024 Albumin DL <= 20 mg/L (U) [Mass/Vol] 5.6 mg/L Invalid Interpretation Code AO ADM SS Albumin/Creatinine DL <= 20 mg/L (U) [Mass ratio] 3 mg/G Normal 0 - 30 mg/G AO Chemistry S Creatinine (U) [Mass/Vol] 164.0 mg/dL Normal 40.0 - 278.0 mg/dL AO ADM SS Cholesterol [Mass/Vol] 168 mg/dL Normal 0 - 2 00 mg/dL AO ADM SS Comment on above: Interpretive Data: C holesterol Reference Interval: Less than 200 Desirable 200-239 Borderline high risk 240 and above High risk Cholesterol in HDL [Mass/Vol] 52 mg/dL Normal 40 - 60 mg/dL AO ADM SS Cholesterol in LDL [Mass/Vol] 95 mg/dL Normal 0 - 130 mg/dL AO ADM SS Triglyceride [Mass/Vol] 104 mg/dL Normal 0 - 150 mg/dL AO ADM SS Comment on above: Interpretive Data: T riglyceride Reference Interval: Less than 150 Normal 150-199 Borderline high risk 200-499 High risk 500 or higher Very high risk LABORATORYOrdered By: SYSTEM SYSTEM on 10-17-2024 25-hydroxyvitamin D3 [Mass/Vol] 53.9 ng/mL Invalid Interpretation Code AO ADM SS Comment on above: Interpretive Data: I nterpretive Values Based on Total 25(OH) Vitamin D: Deficient <20 ng/mL Insufficient 20 - <30 ng/mL Sufficient 30-100 ng/mL Albumin BCP dye [Mass/Vol] 3.1 G/dL Low 3.4 - 4.8 G/dL AO ADM SS Albumin/Globulin [Mass ratio] 0.8 {ratio} Low 1.1 - 2.5 ratio AO ADM SS ALP [Catalytic activity/Vol] 247 U/L High 40 - 135 U/L AO ADM SS ALT With P-5'-P [Catalytic activity/Vol] 70 U/L High 16 - 63 U/L AO ADM SS AST With P-5'-P [Catalytic activity/Vol] 40 U/L Normal 10 - 40 U/L AO ADM SS Basophils (Bld) [#/Vol] 0.0 103/mcL Normal 0.0 - 0.3 10^3/mcL AO Workflow SS Basophils/100 WBC (Bld) 0.7 % Normal 0.0 - 2.5 % AO Workflow SS Bilirubin [Mass/Vol] 0.4 mg/dL Normal 0.2 - 1 .0 mg/dL AO ADM SS Comment on above: Interpretive Data: U se of this assay is not recommended for patients undergoing treatment with eltrombopag due to the potential for falsely elevated results. Calcium [Mass/Vol] 9.0 mg/dL Normal 8.4 - 10. 2 mg/dL AO ADM SS Chloride [Moles/Vol] 105 mmol/L Normal 98 - 10 7 mmol/L AO ADM SS CO2 [Moles/Vol] 29 mmol/L Normal 23 - 31 mmol/L AO ADM SS Creatinine [Mass/Vol] 1.09 mg/dL Normal 0.67 - 1.17 mg/dL AO ADM SS Electrolyte Balance 7.0 mEq/L Normal 4.0 - 15 .0 mEq/L AO ADM SS Eosinophil, Absolute 0.1 103/mcL Normal 0.0 - 0 .7 10^3/mcL AO Workflow SS Eosinophils/100 WBC (Bld) 1.7 % Normal 0.0 - 6.0 % AO Workflow SS Erythrocyte distribution width (RBC) [Ratio] 13.8 % Normal 11.5 - 15.5 % AO Workflow SS Estimated Glomerular Filtration Rate 71 ml/min/1.73sqm Invalid Interpretation Code AO Chemistry S Comment on above: Interpretive Data: Stages of Chronic Kidney Disease (CKD) Stage [...] race factor to calculate the eGFR results. Globulin 3.9 G/dL Normal 2.7 - 4.4 G/dL AO ADM SS Glucose [Mass/Vol] 162 mg/dL High 83 - 110 mg/dL AO ADM SS Glucose [Mass/Vol] 131 mg/dL Invalid Interpretation Code AO Chemistry S Comment on above: Interpretive Data: E stimated average glucose (eAG) is a calculated value from Hemoglobin A1C and is direct customer service representative of the average blood glucose level in the last 2-3 month period. Normal range: less than 114 mg/dL HbA1c (Bld) [Mass fraction] 6.2 % Normal 4.3 - 6.4 % AO ADM SS Hematocrit (Bld) [Volume fraction] 37.5 % Low 40.0 - 52.0 % AO Workflow SS Hemoglobin (Bld) [Mass/Vol] 12.5 G/dL Low 13.0 - 17.5 G/dL AO Workflow SS Lymphocytes (Bld) [#/Vol] 0.9 103/mcL Normal 0.9 - 4.3 10^3/mcL AO Workflow SS Lymphocytes/100 WBC (Bld) 17.0 % Low 20.0 - 40.0 % AO Workflow SS MCH (RBC) [Entitic mass] 30.9 pg Normal 27.0 - 33.0 pg AO Workflow SS MCHC 33.3 G/dL Normal 32.0 - 36.0 G/dL AO Workflow SS MCV (RBC) [Entitic vol] 92.9 fL Normal 81.0 - 100.0 fL AO Workflow SS Monocytes (Bld) [#/Vol] 0.6 103/mcL Normal 0.1 - 1.4 10^3/mcL AO Workflow SS Monocytes/100 WBC (Bld) 10.9 % Normal 2.0 - 13.0 % AO Workflow SS Natriuretic peptide.B prohormone N-Terminal [Mass/Vol] 814 pg/mL High 0 - 450 pg/mL AO ADM SS Comment on above: Interpretive Data: N T-proBNP results of less than 300 pg/mL effectively rules out acute congestive heart failure with 99% negative predictive value. Neutrophils (Bld) [#/Vol] 3.8 103/mcL Normal 2.3 - 8.1 10^3/mcL AO Workflow SS Neutrophils/100 WBC (Bld) 69.7 % Normal 50.0 - 75.0 % AO Workflow SS Platelet mean volume (Bld) [Entitic vol] 7.5 fL Normal 6.4 - 10.5 fL AO Workflow SS Platelets (Bld) [#/Vol] 263 103/mcL Normal 150 - 450 10^3/mcL AO Workflow SS Potassium [Moles/Vol] 4.0 mmol/L Normal 3.5 - 5.1 mmol/L AO ADM SS Prostate specific Ag [Mass/Vol] 11.18 ng/mL High 0.00 - 4.00 ng/mL AO ADM SS Protein [Mass/Vol] 7.0 G/dL Normal 6.4 - 8.2 G/dL AO ADM SS RBC (Bld) [#/Vol] 4.04 106/mcL Low 4.50 - 6.00 10^6/mcL AO Workflow SS Sodium [Moles/Vol] 141 mmol/L Normal 136 - 145 mmol/L AO ADM SS TSH Qn 0.98 m[IU]/L Normal 0.36 - 3.74 mcIU/mL AO ADM SS Urea nitrogen [Mass/Vol] 12 mg/dL Normal 7 - 18 mg/dL AO ADM SS Urea nitrogen/Creatinine [Mass ratio] 11 ratio Normal 7 - 27 ratio AO ADM SS WBC (Bld) [#/Vol] 5.4 103/mcL Normal 4.5 - 10.8 10^3/mcL AO Workflow SS LABORATORYOrdered By: Copiny P CONTRIBUTOR_SYSTEM on 10-17-2024 Apolipoprotein B [Mass/Vol] 86 mg/dL Invalid Interpretation Code AO Sendouts SS Comment on above: Result Comment: Mary Kay guzman < 90 Borderline High 90 - 99 High 100 - 130 Very High >130 ASCVD RISK THERAPEUTIC TARGET CATEGORY APO B (mg/dL) Very High Risk <80 (if extreme risk <70) High Risk <90 Moderate Risk <90 Performed At: [facility] [id number] Ghulam Kenny MD Ph:[phone] LIPIDon 10-17-2024 Cholesterol [Mass/Vol] 168 mg/dL Normal 0-200 [facility] Comment on above: Result Comment: Chol esterol Reference Interval: Less than 200 Desirable 200-239 Borderline high risk 240 and above High risk Performed By: #### C MP, LIPID, GFR #### [address] [address] Cholesterol in HDL [Mass/Vol] 52 mg/dL Normal 40-60 [facility] Comment on above: Performed By: #### C MP, LIPID, GFR #### [address] [address] Cholesterol in LDL [Mass/Vol] 95 mg/dL Normal 0-130 [facility] Comment on above: Performed By: #### C MP, LIPID, GFR #### [address] [address] Triglyceride [Mass/Vol] 104 mg/dL Normal 0-150 [facility] Comment on above: Result Comment: Trig lyceride Reference Interval: Less than 150 Normal 150-199 Borderline high risk 200-499 High risk 500 or higher Very high risk Performed By: #### C MP, LIPID, GFR #### [address] [address] MALBRon 10-17-2024 U Creatinine 164.0 mg/dL Normal 40.0-278.0 [facility] Comment on above: Performed By: #### C MP, LIPID, GFR #### [address] [address] U Microalb 5.6 mg/L Normal [facility] Comment on above: Performed By: #### C MP, LIPID, GFR #### [address] [address] U Ratio Alb/Cre 3 mg/G Normal 0-30 [facility] Comment on above: Performed By: #### C MP, LIPID, GFR #### [address] [address] PBNPon 10-17-2024 Natriuretic peptide B (Bld) [Mass/Vol] 814 pg/mL High 0-450 [facility] Comment on above: Result Comment: NT-p roBNP results of less than 300 pg/mL effectively rules out acute congestive heart failure with 99% negative predictive value. Performed By: #### 1 [address], LIPID, A1C, CBC, PBNP, VIDH, ANEU, GFR, PSA, TSHR, CMP, ADIFF #### [address] [address] PSAon 10-17-2024 Prostate Specific Antigen 11.18 ng/mL High 0.00-4.00 [facility] Comment on above: Performed By: #### C MP, LIPID, GFR #### [place] [address] TSHRon 10-17-2024 TSH Qn 0.98 m[IU]/L Normal 0.36-3.74 [facility] Comment on above: Performed By: #### 1 [address]24, LIPID, A1C, CBC, PBNP, VIDH, ANEU, GFR, PSA, TSHR, CMP, ADIFF #### [address] [address] VIDHon 10-17-2024 Vit. D 25-Hydroxy 53.9 ng/mL Normal [facility] Comment on above: Result Comment: Inte rpretive Values Based on Total 25(OH) Vitamin D: Deficient <20 ng/mL Insufficient 20 - <30 ng/mL Sufficient 30-100 ng/mL Performed By: #### C MP, LIPID, GFR #### [address] [address] CNCOon 08-25-2024 CNCO Letter Text Normal [facility] CNPNelda 08-22-2024 CNPN Telephone ([facility]) -- ANYA KAMARA ([id number]) 1950 M [facility] Date Time Provider Department 08/22/24 ELAYNE EDWARDS During your visit today, we recorded the following information about you: Dirk Thayer RN 08/22/2024 2:40 PM Signed Pt dropped off BMS forms. Dirk Thayer RN 08/25/2024 3:37 PM Signed Forms signed Faxed to [phone] Confirmation received. Placed in PSS for scan [...] of Date: 08/22/2024 Noted Allergy Reaction PERCOCET (OXYCODONE-ACETAMINOPHEN)0 09/15/2016 9 - Itching Comments: Pt took 2 doses close together (per patient) Date Reviewed: 08/22/2024 Reviewed by: Vanita De La Cruz, TECHNOLOGIST - Fully Assessed Reason for Visit: Forms [913] Cmt: BMS Prescriptions as of 09/12/2024 - [...] 01/07/2022 Obesity (BMI 35.0-39.9 without comorbidity) [E6*01/07/2022 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 current use of anticoagulant [Z79.01] 01/07/2022 Elevated [...] Encounter Status:Closed by DIRK THAYER on 08/22/24 Normal [facility] CTA CHEST (GATED) W IVCONon 08-22-2024 CTA CHEST (GATED) W IVCON * * *Final Report* * * DATE OF EXAM: Aug 22 2024 1:19PM [facility] CTA CHEST (GATED) W IVCON [...] define thoracic and aortic anatomy TECHNIQUE: SCANNER: [employer] Ascend multidetector scanner PROTOCOL: Prospectively triggered helical [...] of the left vertebral artery. AORTIC DIMENSIONS: [place] AORTIC ROOT: 4.0 cm measured nwxeu-kj-pzdva area 11.0 cm2 mid ASCENDING THORACIC AORTA: 4.7 cm area 17.0 cm2, indexed 9.3 cm2/m mid AORTIC ARCH: 3.3 cm proximal DESCENDING THORACIC AORTA: 2.9 cm limited upper ABDOMEN: unremarkable BONES and SOFT TISSUES: degenerative changes of the thoracic spine. S/P left shoulder surgery. Granite Cutter Apprentice (topogram) images: No additional findings. IMPRESSION: 1. [...] obtained in 12 months --END OF FINDING-- Hassock Maker: ABEBE Transcribe Date/Time: Aug 22 2024 5:06P Dictated by : ZOILA VÁSQUEZ MD This examination was interpreted and the report reviewed and electronically signed by: ZOILA VÁSQUEZ MD on Aug 22 2024 5:51PM EST [id number] [id number] Invalid Interpretation Code [facility] CTA Chest vessels W contrast IVOrdered By: Ccf Provider on 08-22-2024 Interpretation and review of laboratory results Abnormal [facility] Radiology Result ACTIONABLE Abnormal [facility] Comment on above: This report contains an incidental or actionable finding. This finding may be a new finding separate from the reason your provider ordered the imaging test or it may be an already known finding that needs additional or continued follow-up. Because of this incidental or actionable finding, you may need another test (imaging or a different type of test). Please contact your provider for the next steps. [facility] CTA Chest vessels W contrast Chip 08-22-2024 IMPRESSION: 1. Moderate dilation of the mid [...] obtained in 12 months --END OF FINDING-- Hassock Maker: ABEBE Transcribe Date/Time: Aug 22 2024 5:06P Dictated by : ZOILA VÁSQUEZ MD This examination was interpreted and the report reviewed and electronically signed by: ZOILA VÁSQUEZ MD on Aug 22 2024 5:51PM [facility] * * *Final Report* * * DATE OF EXAM: Aug 22 2024 1:19PM [facility] [place] CTA CHEST (GATED) W IVCON [...] define thoracic and aortic anatomy TECHNIQUE: SCANNER: [employer] multidetector scanner PROTOCOL: Prospectively triggered helical high-pitch [...] of the left vertebral artery. AORTIC DIMENSIONS: [place] AORTIC ROOT: 4.0 cm measured cuwxq-nu-eetwf area 11.0 cm2 mid ASCENDING THORACIC AORTA: 4.7 cm area 17.0 cm2, indexed 9.3 cm2/m mid AORTIC ARCH: 3.3 cm proximal DESCENDING THORACIC AORTA: 2.9 cm limited upper ABDOMEN: unremarkable BONES and SOFT TISSUES: degenerative changes of the thoracic spine. S/P left shoulder surgery. Granite Cutter Apprentice (topogram) images: No additional findings. [facility] Provider, [facility] - 08/22/2024 * * *Final Report* * * DATE OF EXAM: Aug 22 2024 1:19PM [facility] [place] - CTA CHEST (GATED) W IVCON [...] define thoracic and aortic anatomy TECHNIQUE: SCANNER: [employer] Ascend multidetector scanner PROTOCOL: Prospectively triggered helical [...] of the left vertebral artery. AORTIC DIMENSIONS: [place] AORTIC ROOT: 4.0 cm measured tnmqn-fk-ufblm area 11.0 cm2 mid ASCENDING THORACIC AORTA: 4.7 cm area 17.0 cm2, indexed 9.3 cm2/m mid AORTIC ARCH: 3.3 cm proximal DESCENDING THORACIC AORTA: 2.9 cm limited upper ABDOMEN: unremarkable BONES and SOFT TISSUES: degenerative changes of the thoracic spine. S/P left shoulder surgery. Granite Cutter Apprentice (topogram) images: No additional findings. IMPRESSION IMPRESSION: 1. Moderate dilation of the mid [...] obtained in 12 months --END OF FINDING-- Hassock Maker: ABEBE Transcribe Date/Time: Aug 22 2024 5:06P Dictated by : ZOILA VÁSQUEZ MD This examination was interpreted and the report reviewed and electronic (more content not included)... [facility] Radiology Study observation (narrative) [facility] NURSING PROGon 08-22-2024 NURSING PROG HNO ID: [id number] Author: ESPERANZA BROOKS RN Service: Radiology Author [...] DATE: August 22, 2024 TIME: 1:09 PM Normal [facility] Basic metabolic 2000 panelon 08-18-2024 Anion gap [Moles/Vol] 10 mmol/L Normal 8-15 [facility] Comment on above: Order Comment: Ann montemayor Type: BLOOD SPECIMEN Ordering Facility: [facility] Address: [address] [place] [address] Performed By: #### 2 4321-2 #### [facility] CLIA [id number] [address] [place] [address] [place] Calcium [Mass/Vol] 9.6 mg/dL Normal 8.5-10.2 [facility] Comment on above: Order Comment: Ann montemayor Type: BLOOD SPECIMEN Ordering Facility: [facility] Address: [address] [place] [address] Performed By: #### 2 4321-2 #### [facility] CLIA [id number] [address] [place] [address] [place] Chloride [Moles/Vol] 105 mmol/L Normal 98-107 [facility] Comment on above: Order Comment: Ann montemayor Type: BLOOD SPECIMEN Ordering Facility: [facility] Address: [address] [place] [address] Performed By: #### 2 4321-2 #### [facility] CLIA [id number] [address] [place] [address] [place] CO2 [Moles/Vol] 27 mmol/L Normal 22-30 [facility] Comment on above: Order Comment: Ann montemayor Type: BLOOD SPECIMEN Ordering Facility: [facility] Address: [address] [place] [address] Performed By: #### 2 4321-2 #### [facility] CLIA [id number] [address] STATES OF [facility] Creatinine [Mass/Vol] 1.17 mg/dL Normal 0.73-1.22 [facility] Comment on above: Order Comment: Ann montemayor Type: BLOOD SPECIMEN Ordering Facility: [facility] Address: [address] [place] [address] Performed By: #### 2 4321-2 #### [facility] CLIA [id number] [address] Creatinine and Glomerular filtration rate.predicted panel (S/P/Bld) 65 mL/min/1.73m??? Normal >=60 [facility] Comment on above: Order Comment: Ann montemayor Type: BLOOD SPECIMEN Ordering Facility: [facility] Address: [address] [place] [address] Result Comment: Juanis mated Glomerular Filtration Rate (eGFR) is calculated using the 2020 CKD-EPI creatinine equation. This equation utilizes serum creatinine, sex, and age as parameters. The creatinine assay has traceable calibration to isotope dilution-mass spectrometry. Refer to KDIGO guidelines for clinical interpretation. In patients with unstable renal function, e.g. those with acute kidney injury, the eGFR may not accurately reflect actual GFR. Performed By: #### 2 4321-2 #### [facility] CLIA [id number] [address] [place] Glucose [Mass/Vol] 100 mg/dL High 74-99 [facility] Comment on above: Order Comment: Ann montemayor Type: BLOOD SPECIMEN Ordering Facility: [facility] Address: [address] [place] [address] Result Comment: The [place] Diabetes Association (ADA) provides guidance for cutoff [...] Standards of Medical Care in Diabetes 2016, [place] Diabetes Association. Diabetes Care. 2016.39(Suppl 1). Performed By: #### 2 4321-2 #### [facility] CLIA [id number] [address] [place] [address] [place] Potassium [Moles/Vol] 4.5 mmol/L Normal 3.7-5.1 [facility] Comment on above: Order Comment: Speci men Type: BLOOD SPECIMEN Ordering Facility: [facility] Address: [address] [place] [address] Performed By: #### 2 4321-2 #### [facility] CLIA [id number] [address] STATES OF [facility] Sodium [Moles/Vol] 142 mmol/L Normal 136-144 [facility] Comment on above: Order Comment: Speci men Type: BLOOD SPECIMEN Ordering Facility: [facility] Address: [address] [place] [address] Performed By: #### 2 4321-2 #### [facility] CLIA [id number] [address] [place] Urea nitrogen [Mass/Vol] 16 mg/dL Normal 9-24 [facility] Comment on above: Order Comment: Speci men Type: BLOOD SPECIMEN Ordering Facility: [facility] Address: [address] [place] [address] Performed By: #### 2 4321-2 #### [facility] CLIA [id number] [address] [place] [address] [place] CNCOon 07-31-2024 CNCO Letter Text Normal [facility] Diagnostic total prostate sp ecific antigen (PSA) measurementOrdered By: Bj Momin on 07-21-2024 Prostate Specific Antigen Total 1.05 ng/mL 0.00-4.00 [facility] Comment on above: This test was perfor [facility] using the [employer] tPSA method. Measured values of a patient sample can vary depending on the testing procedure used. PSA values determined on patient samples by different testing procedures cannot be used interchangeably. If there is a change in PSA assays while monitoring therapy, sequential testing should be performed to confirm baseline values. PSA,Total- Diagnosticon 07-12 PSA, DIAGNOSTIC 1.05 ng/mL Normal 0.00-4.00 [facility] Comment on above: Result Comment: This test was performed using the [employer] tPSA method. Measured values of a patient??sample can vary depending on the testing procedure used. PSA values determined on patient samples by different testing procedures cannot be used interchangeably. If there is a change in PSA assays while monitoring therapy, sequential testing should be performed to confirm baseline values. Performed By: #### L 501.9940 #### [facility] [address] [place], [address] CNNURSEon 07-07-2024 [facility] (JENNIFER[facility] -- ANYA KAMARA ([id number]) 1950 M [facility] Date Time Provider Department 07/07/24 3:30 PM NURSE VIVIANE STEINER During your visit today, we recorded the following information about you: Rios De Luna RN 07/07/2024 2:46 PM [facility] [place] Department of Cardiovascular Medicine OUTPATIENT VISIT TYPE NURSE VISIT PATIENT NAME: Anya Kamara DATE OF SERVICE: 07/07/2024 PRIMARY CHECK INSPECTOR: Dr. Hwang Anya Kamara is a 74 year old established patient who presents today for a nurse visit per Dr. Anaya for an EKG Patient taking medication as prescribed: Yes Took medication today: Yes VISIT VITAL SIGNS: There were no vitals taken for this visit. Physician/MIQUEL notification and treatment plan: Agricultural Research Engineer for final review Nursing Plan: Patient education: trolley car mechanic for final review Patient instructed to call and update the office if there are any changes in current condition. Patient verbalizes understanding of the plan: Yes. Patient's questions were addressed during the visit today: Yes Rios De Luna RN July 07, 2024 2:44 PM Stefany Salas APRN.RIB PULLER 07/07/2024 3:10 PM Signed Addended by: STEFANY SALAS on: 07/07/2024 03:10 PM Modules accepted: Orders Rios De Luna RN 07/08/2024 11:39 AM Signed Called pt, informed him Rx has been sent to pharmacy. Verbalizes understanding. Referring Provider: ELAYNE EDWARDS [[id number]] Allergies As of Date: 07/07/2024 Noted Allergy Reaction PERCOCET (OXYCODONE-ACETAMINOPHEN)0 09/15/2016 9 - Itching Comments: Pt took 2 [...] 01/07/2022 Obesity (BMI 35.0-39.9 without comorbidity) [E6*01/07/2022 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 current use of anticoagulant [Z79.01] 01/07/2022 Elevated [...] Status:Closed by RIOS DE LUNA on 07/07/24 Normal [facility] FDP09pa 07-07-2024 ECG01 Ventricular Rate : 7 3 BPM Atrial Rate : 73 BPM P-R Interval : 206 ms QRS Duration : 112 ms Q-T Interval : 402 ms QTC Calculation(Bazett) : 442 ms Calculated P Watkins : 80 degrees Calculated R Watkins : -60 degrees Calculated T Watkins : 58 degrees NORMAL SINUS RHYTHM LEFT AXIS DEVIATION ABNORMAL ECG Confirmed by MD TIPTON QARAB ([id number]) on 07/09/2024 11:29:44 AM NAME : ANYA KAMARA PID : [id number] : 1950 Gender : Male Race : ORD : Procedure Date : Jul 07 2024 14:08:32 Edit Date : Jul 09 2024 11:29:47 Diagnosis: NORMAL SINUS RHYTHM LEFT AXIS DEVIATION ABNORMAL ECG Confirmed by MD TIPTON QARAB ([id number]) on 07/09/2024 11:29:44 AM Test Reason : Location : 211 : [facility] Overread By : MD TIPTON QARAB Edited By : MD TIPTON QARAB Referred By : ELAYNE EDWARDS Acquired by : alina de luna Normal [facility] ECHOon 07-07-2024 Echocardiography Echocardiography Rep ort: Transthoracic Echo [facility] Date of service: 07/07/2024 2:44:44 PM ADMINISTRATOR Ordering physician: ELAYNE EDWARDS Indication: Nonsustained atrial [...] * * * Final * * * CC [employer] : [id number] Normal [facility] CNPNon 06-20-2024 CNPN Telephone (EPSMN) -- ANYA KAMARA ([id number]) 1950 M [facility] Date Time Provider Department 06/20/24 DIO ANAYA [facility] During your visit today, we recorded the [...] and EKG. Patient has cardiology appointment at [facility] on 10/03/24, patient going to reschedule that to be within 30 days of procedure date for HANDP. Patient to get labs done prior to procedure at [facility] prior to procedure, patient asks we put in lab appointment to serve as reminder for him. Explained need for labs to be done at [facility] so that labs will [facility] and we could put in lab appointment for [facility]. Patient states he will get them done at [facility] when he has cardiology appointment. Letter with instructions mailed to the patient. Maribel Franco RN, RN Rios De Luna RN 06/23/2024 8:18 AM Signed Pt called left asking to change his appointment with Jerry GARCIA on 10/03 to after the . Anita Gipson 06/23/2024 2:06 PM Signed Patient is scheduled Maribel Franco RN 06/25/2024 6:14 PM Signed Patient noted to have rescheduled OPD to 10/15. Called and spoke with patient and let him know lab appointment scheduled on 10/31/24 at [facility]. Patient stated understanding. Maribel Franco RN, RN Allergies As of Date: 06/20/2024 Noted Allergy Reaction PERCOCET (OXYCODONE-ACETAMINOPHEN)0 09/15/2016 9 - Itching Comments: Pt took 2 doses close together (per patient) Date Reviewed: 05/05/2024 Reviewed by: Brittani Guzman MA - Fully Assessed Reason for Visit: Procedure [88] Cmt: EP: PVI ablation procedure Primary Visit Diagnosis:Atrial fibrillation, unspecified type (HCC) [I48.91] Order(s):BASIC METABOLIC PANEL [SQBMP] Order #: [id number] FUTURE COMPLETE BLOOD COUNT [SQCBC] Order #: [id number] FUTURE CONFIRM BLOOD TYPE [SQCONABO] Order #: [id number] FUTURE TYPE AND SCREEN,30 DAY [QOKUPG95] Order #: [id number] FUTURE Prescriptions as of 06/25/2024 - dofetilide [...] 01/07/2022 Obesity (BMI 35.0-39.9 without comorbidity) [E6*01/07/2022 alf current use of anticoagulant [Z79.01] 01/07/2022 Elevated [...] Encounter Status:Closed by MARIBEL FRANCO on 06/20/24 [facility] [place] [facility] CNOVon 05-05-2024 CNOV Office Visit (JENNIFER ) -- ANYA KAMARA ([id number]) 1950 M [facility] Date Time Provider Department 05/05/24 8:30 AM [...] discontinued- Started Tikosyn 125 mcg on 02/08/22 ZGJ0HX4-DUGl score 2 (Age AND HTN) - on [...] was present. Isolated SVEs were occasional (3.4%, 69238), SVE Couplets were rare (<1.0%, 123), and [...] may have occurred. Dio Anaya MD Pager: [phone] Office: [phone] I personally examined the patient and repeated the tejeda component (more content not included)... Normal [facility] Kathy 04-22-2024 MIMI Telephone ([facility]) -- ANYA KAMARA ([id number]) 1950 M [facility] Date Time Provider Department 04/22/24 ELAYNE EDWARDS During your visit today, we recorded the following information about you: Rios De Luna RN 04/22/2024 11:23 AM Signed Called left VM to call us back to review Zio [...] and where he would like to go ([place], [place], [facility], [facility], etc.) an I will place the order. Thanks, Elayne Edwards APRN.RIB PULLER Rios De Luna RN 04/23/2024 11:20 AM Signed Reviewed results with pt. Verbalizes understanding. Pt states he will come to [facility] to see EP Rios De Luna RN 04/23/2024 11:33 AM Signed Addended by: RIOS DE LUNA on: 04/23/2024 11:33 AM Modules accepted: Elayne Calvo APRN.[facility] 04/23/2024 3:14 PM Signed Addended by: ELAYNE [...] of Date: 04/22/2024 Noted Allergy Reaction PERCOCET (OXYCODONE-ACETAMINOPHEN)0 09/15/2016 9 - Itching Comments: Pt took 2 doses close together (per patient) Date Reviewed: 04/04/2024 Reviewed by: Aden Yuan LPN - Fully Assessed Reason for Visit: Results [95] Cmt: Nisha Primary Visit Diagnosis:Paroxysmal atrial fibrillation (HCC) [I48.0] Order(s):CONSULT TO ELECTROPHYSIOLOGY [[id number]] Order #: [id number]: 1 FUTURE Prescriptions as of 04/30/2024 - [...] 01/07/2022 Obesity (BMI 35.0-39.9 without comorbidity) [E6*01/07/2022 alf current use of anticoagulant [Z79.01] 01/07/2022 Elevated [...] 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 Values obtained with differentassay methods cannot be used interchangably.When changing PSA assays in the course of monitoring apatient, additional sequential testing should be carriedout to confirm baseline values. PSA,Total- Diagnosticon PSA, DIAGNOSTIC 0.68 ng/mL Normal 0.0-4.0 [facility] Comment on above: Result Comment: This test was performed using the TPSA assay method for the [employer] chemistry system. Values obtained with different assay methods cannot be used interchangably. When changing PSA assays in the course of monitoring a patient, additional sequential testing should be carried out to confirm baseline values. Performed By: #### L 501.9940 #### [facility] [address] [place], [address] CNOVon 04-04-2024 CNOV Office Visit (CARDMM ) -- ANYA KAMARA ([id number]) 1950 M [place] Date Time Provider Department 04/04/24 2:00 PM ELAYNE EDWARDS During your visit today, we recorded the following information about you: Pulse Blood pressure Weight Height 72/minute 118/70 118 kg 1.829 m Elayne Edwards APRN.RIB PULLER 04/04/2024 4:02 PM Signed [facility] [place] [facility] Department of Cardiovascular Medicine SECTION OF CLINICAL CARDIOLOGY OUTPATIENT VISIT DATE April 04, 2024 OUTPATIENT VISIT TYPE ESTABLISHED PRIMARY CARE PHYSICIAN: Ezekiel Caro [address] [place] [address] CHIEF COMPLAINT: Follow up HISTORY OF PRESENT [...] frequency and duration of these with his 365[employer] mobile device and let us know if he developed any symptoms. No further additions or changes were made at that time with plan for follow-up in 6 months. He was subsequently seen in the [place] [facility] on 03/19/2024 after a mechanical fall [...] Excessive sweating, Frequent urination, Frequent thirst Objective (more content not included)... Normal [facility] [id number] 04-04-2024 ECG01 Ventricular Rate : 8 6 BPM QRS Duration : 106 ms Q-T Interval : 398 ms QTC Calculation(Bazett) : 476 ms Calculated R Watkins : -67 degrees Calculated T Watkins : 68 degrees ATRIAL FIBRILLATION LEFT ANTERIOR FASCICULAR BLOCK MINIMAL VOLTAGE CRITERIA FOR LVH, MAY BE NORMAL VARIANT ( Jose Cruz product ) NONSPECIFIC ST ABNORMALITY ABNORMAL ECG Confirmed by MD TIPTON QARAB ([id number]) on 04/07/2024 3:48:39 PM NAME : ANYA KAMARA PID : [id number] : 1950 Gender : Male Race : ORD : Procedure Date : Apr 04 2024 14:29:56 Edit Date : Apr 07 2024 15:48:41 Diagnosis: ATRIAL FIBRILLATION LEFT ANTERIOR FASCICULAR BLOCK MINIMAL VOLTAGE CRITERIA FOR LVH, MAY BE NORMAL VARIANT ( Jose Cruz product ) NONSPECIFIC ST ABNORMALITY ABNORMAL ECG Confirmed by MD TIPTON QARAB ([id number]) on 04/07/2024 3:48:39 PM Test Reason : Location : 211 : [facility] Overread By : MD TIPTON QARAB Edited By : MD TIPTON QARAB Referred By : ELAYNE EDWARDS Acquired by : Swapnil GALINDO [facility] .GFRon 03-24-2024 GFR Non- 51 ml/min/1.73sqm Normal [facility] Comment on above: Result Comment: GFR Population mean for , [...] 15 mL/min/1.73 square meters Performed By: #### C MP, LIPID, GFR #### [address] [place], [place] [address] GFR 62 ml/min/1.73sqm Normal [facility] Comment on above: Result Comment: GFR Population mean for , [...] 15 mL/min/1.73 square meters Performed By: #### C MP, LIPID, GFR #### [address] [address] CMPon 03-24-2024 Albumin Level 3.4 G/dL Normal 3.4-4.8 [facility] Comment on above: Performed By: #### C MP, LIPID, GFR #### [address] [address] Albumin/Globulin [Mass ratio] 1.3 {ratio} Normal 1.1-2.5 [facility] Comment on above: Performed By: #### C MP, LIPID, GFR #### [address] [place], [place] [address] ALP [Catalytic activity/Vol] 87 U/L Normal 40-135 [facility] Comment on above: Performed By: #### C MP, LIPID, GFR #### [address] [address] ALT [Catalytic activity/Vol] 49 U/L Normal 16-63 [facility] Comment on above: Performed By: #### C MP, LIPID, GFR #### [address] [address] AST [Catalytic activity/Vol] 24 U/L Normal 10-40 [facility] Comment on above: Performed By: #### C MP, LIPID, GFR #### [address] [address] Bili Total 0.4 mg/dL Normal 0.2-1.0 [facility] Comment on above: Result Comment: Use of this assay is not recommended for patients undergoing treatment with eltrombopag due to the potential for falsely elevated results. Performed By: #### C MP, LIPID, GFR #### [address] [address] BUN/Creatinine Ratio 12 ratio Normal 7-27 [facility] Comment on above: Performed By: #### C MP, LIPID, GFR #### [address] [address] Calcium [Mass/Vol] 9.0 mg/dL Normal 8.4-10.2 [facility] Comment on above: Performed By: #### C MP, LIPID, GFR #### [address] [address] Chloride [Moles/Vol] 106 mmol/L Normal 98-107 [facility] Comment on above: Performed By: #### C MP, LIPID, GFR #### [address] [address] CO2 [Moles/Vol] 30 mmol/L Normal 23-31 [facility] Comment on above: Performed By: #### C MP, LIPID, GFR #### [address] [address] Creatinine [Mass/Vol] 1.36 mg/dL High 0.70-1.30 [facility] Comment on above: Result Comment: Test ing performed on Siemens Dimension EXL analyzer using a modified kinetic Chavez technique. Performed By: #### C MP, LIPID, GFR #### [address] [address] Electrolyte Balance 9.0 mEq/L Normal 4.0-15.0 [facility] Comment on above: Performed By: #### C MP, LIPID, GFR #### [address] [address] Globulin 2.6 G/dL Normal [facility] Comment on above: Performed By: #### C MP, LIPID, GFR #### [address] [address] Glucose [Mass/Vol] 115 mg/dL High 83-110 [facility] Comment on above: Performed By: #### C MP, LIPID, GFR #### [address] [address] Potassium [Moles/Vol] 4.3 mmol/L Normal 3.5-5.1 [facility] Comment on above: Performed By: #### C MP, LIPID, GFR #### [address] [address] Sodium [Moles/Vol] 145 mmol/L Normal 136-145 [facility] Comment on above: Performed By: #### C MP, LIPID, GFR #### [address] [address] Total Protein 6.0 G/dL Low 6.4-8.2 [facility] Comment on above: Performed By: #### C MP, LIPID, GFR #### [address] [address] Urea nitrogen [Mass/Vol] 17 mg/dL Normal 7-18 [facility] Comment on above: Performed By: #### C MP, LIPID, GFR #### [address] [address] LABORATORYOrdered By: Maribel Ferreira on 03-24-2024 Albumin DL <= 20 mg/L (U) [Mass/Vol] 491 mcg/dL Invalid Interpretation Code AO ADM SS Albumin/Creatinine DL <= 20 mg/L (U) [Mass ratio] 4 mcg/mg Normal 0 - 30 mcg/mg AO ADM SS Creatinine (U) [Mass/Vol] 123.6 mg/dL Normal 39.0 - 259.0 mg/dL AO ADM SS Cholesterol [Mass/Vol] 189 mg/dL Normal 0 - 2 00 mg/dL AO ADM SS Comment on above: Interpretive Data: C holesterol Reference Interval: Less than 200 Desirable 200-239 Borderline high risk 240 and above High risk Cholesterol in HDL [Mass/Vol] 75 mg/dL High 40 - 60 mg/dL AO ADM SS Cholesterol in LDL [Mass/Vol] 102 mg/dL Normal 0 - 130 mg/dL AO ADM SS Triglyceride [Mass/Vol] 59 mg/dL Normal 0 - 150 mg/dL AO ADM SS Comment on above: Interpretive Data: T riglyceride Reference Interval: Less than 150 Normal 150-199 Borderline high risk 200-499 High risk 500 or higher Very high risk LABORATORYOrdered By: SYSTEM SYSTEM on 03-24-2024 Albumin BCP dye [Mass/Vol] 3.4 G/dL Normal 3.4 - 4.8 G/dL AO ADM SS Albumin/Globulin [Mass ratio] 1.3 {ratio} Normal 1.1 - 2.5 ratio AO ADM SS ALP [Catalytic activity/Vol] 87 U/L Normal 40 - 135 U/L AO ADM SS ALT With P-5'-P [Catalytic activity/Vol] 49 U/L Normal 16 - 63 U/L AO ADM SS AST With P-5'-P [Catalytic activity/Vol] 24 U/L Normal 10 - 40 U/L AO ADM SS Bilirubin [Mass/Vol] 0.4 mg/dL Normal 0.2 - 1 .0 mg/dL AO ADM SS Comment on above: Interpretive Data: U se of this assay is not recommended for patients undergoing treatment with eltrombopag due to the potential for falsely elevated results. Calcium [Mass/Vol] 9.0 mg/dL Normal 8.4 - 10. 2 mg/dL AO ADM SS Chloride [Moles/Vol] 106 mmol/L Normal 98 - 10 7 mmol/L AO ADM SS CO2 [Moles/Vol] 30 mmol/L Normal 23 - 31 mmol/L AO ADM SS Creatinine [Mass/Vol] 1.36 mg/dL High 0.70 - 1.30 mg/dL AO ADM SS Comment on above: Interpretive Data: T esting performed on Siemens Dimension EXL analyzer using a modified kinetic Chavez technique. Electrolyte Balance 9.0 mEq/L Normal 4.0 - 15 .0 mEq/L AO ADM SS GFR/1.73 sq M.predicted among blacks MDRD (S/P/Bld) [Vol rate/Area] 62 ml/min/1.73sqm Invalid Interpretation Code AO Chemistry S Comment on above: Interpretive Data: GFR Population mean for , Non- Americans Ages 20-29 = 116 mL/min/1.73 sq.m. Ages 30-39 = 107 mL/min/1.73 sq.m. Ages 40-49 = 99 mL/min/1.73 sq.m. Ages 50-59 = 93 mL/min/1.73 sq.m. Ages 60-69 = 85 mL/min/1.73 sq.m. Ages 70+ = 75 mL/min/1.73 sq.m. Chronic Kidney Disease: Less than 60 mL/min/1.73 square meters End Stage Renal Disease: Less than 15 mL/min/1.73 square meters GFR/1.73 sq M.predicted among non-blacks MDRD (S/P/Bld) [Vol rate/Area] 51 ml/min/1.73sqm Invalid Interpretation Code AO Chemistry S Comment on above: Interpretive Data: GFR Population mean for , Non- Americans Ages 20-29 = 116 mL/min/1.73 sq.m. Ages 30-39 = 107 mL/min/1.73 sq.m. Ages 40-49 = 99 mL/min/1.73 sq.m. Ages 50-59 = 93 mL/min/1.73 sq.m. Ages 60-69 = 85 mL/min/1.73 sq.m. Ages 70+ = 75 mL/min/1.73 sq.m. Chronic Kidney Disease: Less than 60 mL/min/1.73 square meters End Stage Renal Disease: Less than 15 mL/min/1.73 square meters Globulin 2.6 G/dL Invalid Interpretation Code AO ADM SS Glucose [Mass/Vol] 115 mg/dL High 83 - 110 mg/dL AO ADM SS Potassium [Moles/Vol] 4.3 mmol/L Normal 3.5 - 5.1 mmol/L AO ADM SS Protein [Mass/Vol] 6.0 G/dL Low 6.4 - 8.2 G/dL AO ADM SS Sodium [Moles/Vol] 145 mmol/L Normal 136 - 145 mmol/L AO ADM SS Urea nitrogen [Mass/Vol] 17 mg/dL Normal 7 - 18 mg/dL AO ADM SS Urea nitrogen/Creatinine [Mass ratio] 12 ratio Normal 7 - 27 ratio AO ADM SS LIPIDon 03-24-2024 Cholesterol [Mass/Vol] 189 mg/dL Normal 0-200 [facility] Comment on above: Result Comment: Chol esterol Reference Interval: Less than 200 Desirable 200-239 Borderline high risk 240 and above High risk Performed By: #### C MP, LIPID, GFR #### [address] [address] Cholesterol in HDL [Mass/Vol] 75 mg/dL High 40-60 [facility] Comment on above: Performed By: #### C MP, LIPID, GFR #### [address] [address] Cholesterol in LDL [Mass/Vol] 102 mg/dL Normal 0-130 [facility] Comment on above: Performed By: #### C MP, LIPID, GFR #### [address] [address] Triglyceride [Mass/Vol] 59 mg/dL Normal 0-150 [facility] Comment on above: Result Comment: Trig lyceride Reference Interval: Less than 150 Normal 150-199 Borderline high risk 200-499 High risk 500 or higher Very high risk Performed By: #### C MP, LIPID, GFR #### [address] [address] MALBRon 03-24-2024 U Creatinine 123.6 mg/dL Normal 39.0-259.0 [facility] Comment on above: Performed By: #### C MP, LIPID, GFR #### [address] [address] U Microalb 491 mcg/dL Normal [facility] Comment on above: Performed By: #### C MP, LIPID, GFR #### [facility] [address] [place], [place] [address] U Ratio Alb/Cre 4 mcg/mg Normal 0-30 [facility] Comment on above: Performed By: #### C MP, LIPID, GFR #### [facility] [address] [place], [place] [address] ALLIED HEALTHon 03-19-2024 ALLIED HEALTH HNO ID: [id number] Author: SHERRIE MORRIS RT(R) Service: Radiology Author Type: Supervisor Nurse Type: Allied Health Filed: 03/19/2024 14:37 Note [...] PATIENT PRESENTS WITH AN IMPLANTABLE OR ATTACHED EXCEPTIONAL STUDENT EDUCATION AIDE: No RADIOLOGY DEPARTMENT: CT; Exam(s) Completed: Brain and CSP, TSP PERIPHERAL IV DATA: Not applicable SIGNED BY: RT [place](R) March 19, 2024 2:37 PM Normal [facility] CT BRAIN WO IVCONon 03-19-[address] BRAIN WO IVCON * * *Final Report* * * DATE OF EXAM: Mar 19 2024 2:25PM [facility] 0504 - CT BRAIN WO IVCON / [...] CT evidence of acute traumatic brain injury/hemorrhage Hassock Maker: PSCB Transcribe Date/Time: Mar 19 2024 2:40P Dictated by : FRANCISCO J AG MD This examination was interpreted and the report reviewed and electronically signed by: FRANCISCO J AG MD on Mar 19 2024 2:42PM EST [id number] Normal [facility] CT CERVICAL SPINE WO IVCONon 03-19-2024 CT CERVICAL SPINE WO IVCON * * *Final Report* * * DATE OF EXAM: Mar 19 2024 2:32PM [facility] 0505 - CT CERVICAL SPINE WO IVCON [...] for this visit = 1146.12 Brain/Cervical (accession [id number]), 1457.91 (accession [id number]) mGy*cm. CT Dose Reduction Employed: No dose reduction techniques were required COMPARISON: None. RESULT: CERVICAL: Counting reference: Craniocervical junction. Anatomic Variants: None. Granite Cutter Apprentice (topogram) images: Chronic mucosal changes in the [...] to hypertrophy. THORACIC: Counting reference: Craniocervical junction Granite Cutter Apprentice (topogram) images: Coronary artery calcifications. 4.7 cm [...] calcifications. 4.7 cm enlargement ascending aorta. Cardiomegaly Hassock Maker: ABEBE Transcribe Date/Time: Mar 19 2024 2:42P Dictated by : FRANCISCO J AG MD This examination was interpreted and the report reviewed and electronically signed by: FRANCISCO J AG MD on Mar 19 2024 2:49PM EST [id number] Normal [facility] CT THORACIC SPINE WO IVCONon 03-19-2024 CT THORACIC SPINE WO IVCON * * *Final Report* * * DATE OF EXAM: Mar 19 2024 2:32PM [facility] 0514 - CT THORACIC SPINE WO IVCON [...] for this visit = 1146.12 Brain/Cervical (accession [id number]), 1457.91 (accession [id number]) mGy*cm. CT Dose Reduction Employed: No dose reduction techniques were required COMPARISON: None. RESULT: CERVICAL: Counting reference: Craniocervical junction. Anatomic Variants: None. Granite Cutter Apprentice (topogram) images: Chronic mucosal changes in the [...] to hypertrophy. THORACIC: Counting reference: Craniocervical junction Granite Cutter Apprentice (topogram) images: Coronary artery calcifications. 4.7 cm [...] calcifications. 4.7 cm enlargement ascending aorta. Cardiomegaly Hassock Maker: ABEBE Transcribe Date/Time: Mar 19 2024 2:42P Dictated by : FRANCISCO J AG MD This examination was interpreted and the report reviewed and electronically signed by: FRANCISCO J AG MD on Mar 19 2024 2:49PM EST [id number] [facility] ED NOTEon 03-19-2024 ED NOTE HNO ID: [id number] Author: QING HAN RN Service: ? Author [...] DATE: March 20, 2024 TIME: 11:18 AM Normal [facility] ED NOTE HNO ID: [id number] Author: DAYO SOW RN Service: ? Author Type: Registered Nurse Type: ED Notes Filed: 03/19/2024 17:43 Note Text: D/c instructions reviewed with pt who verbalized understanding. Pt's vss and left ED ual and in stable condition with son. Normal [facility] ED NOTE HNO ID: [id number] Author: DAYO SOW RN Service: ? Author [...] is AANDOx3, vss. Will continue to monitor. Normal [facility] ED PROV NOTEon 03-19-2024 ED PROV NOTE HNO ID: [id number] Author: JORDYN GILL MD Service: ? Author [...] as of 03/20/24 0518 Facial laceration, initial (more content not included)... Normal [facility] XR DIGIT 3V FRONTAL/LAT/OBL LTon 03-19-2024 XR DIGIT 3V FRONTAL/LAT/OBL LT * * *Final Report* * * DATE [...] osseous traumatic abnormality second digit left hand Hassock Maker: ABEBE Transcribe Date/Time: Mar 19 2024 3:20P Dictated by : FRANCISCO J AG MD This examination was interpreted and the report reviewed and electronically signed by: FRANCISCO J AG MD on Mar 19 2024 3:21PM EST [id number] Normal [facility] XR HIP 3V PELV+ AP/LAT RTon 03-19-2024 XR HIP 3V PELV+ AP/LAT RT * * *Final Report* * * DATE [...] hip Hypertrophic changes L5-S1 level right side Hassock Maker: [facility] Transcribe Date/Time: Mar 19 2024 3:15P Dictated by : FRANCISCO J AG MD This examination was interpreted and the report reviewed and electronically signed by: FRANCISCO J AG MD on Mar 19 2024 3:19PM EST [id number] Normal [facility] XR KNEE 2V AP/LAT RTon 03-19 XR KNEE 2V AP/LAT RT * * *Final Report* * * DATE [...] are seen. IMPRESSION: No acute osseous abnormalities Hassock Maker: [facility] Transcribe Date/Time: Mar 19 2024 3:10P Dictated by : FRANCISCO J AG MD This examination was interpreted and the report reviewed and electronically signed by: FRANCISCO J AG MD on Mar 19 2024 3:15PM EST [id number] Normal [facility] XR SHLDR >/=3V AP/ELÍAS AP/OTH R LTon 03-19-2024 XR SHLDR >/=3V AP/ELÍAS AP/OTHR LT * * *Final Report* * * DATE [...] transfixing an old proximal left humerus fracture. Hassock [facility] Transcribe Date/Time: Mar 19 2024 3:19P Dictated by : FRANCISCO J AG MD This examination was interpreted and the report reviewed and electronically signed by: FRANCISCO J AG MD on Mar 19 2024 3:20PM EST [id number] Normal [facility] PSA,Total- Diagnosticon PSA, DIAGNOSTIC 2.43 ng/mL Normal 0.0-4.0 [facility] Comment on above: Result Comment: This test was performed using the TPSA assay method for the [employer] chemistry system. Values obtained with different assay methods cannot be used interchangably. When changing PSA assays in the course of monitoring a patient, additional sequential testing should be carried out to confirm baseline values. Performed By: #### L 501.9940 #### [facility] [address] [place], [address] CBC panel Auto (Bld)on 01-02 Erythrocyte distribution width (RBC) [Ratio] 12.8 % Normal 11.5-15.0 [facility] Comment on above: Order Comment: Speci men Type: BLOOD SPECIMEN Ordering Facility: [facility] Address: [address] [place] [address] Performed By: #### 5 8410-2 #### [facility] CLIA [id number] [address] Hematocrit (Bld) [Volume fraction] 39.6 % Normal 39.0-51.0 [facility] Comment on above: Order Comment: Speci men Type: BLOOD SPECIMEN Ordering Facility: [facility] Address: [address] [place] [address] Performed By: #### 5 8410-2 #### [facility] CLIA [id number] [address] [facility] Hemoglobin (Bld) [Mass/Vol] 13.2 g/dL Normal 13.0-17.0 [facility] Comment on above: Order Comment: Speci men Type: BLOOD SPECIMEN Ordering Facility: [facility] Address: [address] [place] [address] Performed By: #### 5 8410-2 #### [facility] CLIA [id number] [address] MCH (RBC) [Entitic mass] 32.5 pg Normal 26.0-34.0 [facility] Comment on above: Order Comment: Speci men Type: BLOOD SPECIMEN Ordering Facility: [facility] Address: [address] [place] [address] Performed By: #### 5 8410-2 #### [facility] CLIA [id number] [address] MCHC (RBC) [Mass/Vol] 33.3 g/dL Normal 30.5-36.0 [facility] Comment on above: Order Comment: Speci men Type: BLOOD SPECIMEN Ordering Facility: [facility] Address: [address] [place] [address] Performed By: #### 5 8410-2 #### [facility] CLIA [id number] [address] MCV (RBC) [Entitic vol] 97.5 fL Normal 80.0-100.0 [facility] Comment on above: Order Comment: Speci men Type: BLOOD SPECIMEN Ordering Facility: [facility] Address: [address] [place] [address] Performed By: #### 5 8410-2 #### [facility] CLIA [id number] [address] [place] [address] [facility] Nucleated RBC (Bld) [#/Vol] 10*3/uL Normal <0.01 [facility] Comment on above: Order Comment: Speci men Type: BLOOD SPECIMEN Ordering Facility: [facility] Address: [address] [place] [address] Performed By: #### 5 8410-2 #### [facility] CLIA [id number] [address] [place] [address] [place] Platelet mean volume (Bld) [Entitic vol] 8.9 fL Low 9.0-12.7 [facility] Comment on above: Order Comment: Speci men Type: BLOOD SPECIMEN Ordering Facility: [facility] Address: [address] [place] [address] Performed By: #### 5 8410-2 #### [facility] CLIA [id number] [address] [place] Platelets (Bld) [#/Vol] 186 10*3/uL Normal 150-400 [facility] Comment on above: Order Comment: Speci men Type: BLOOD SPECIMEN Ordering Facility: [facility] Address: [address] [place] [address] Performed By: #### 5 8410-2 #### [facility] CLIA [id number] [address] [place] RBC (Bld) [#/Vol] 4.06 10*6/uL Low 4.20-6.00 [facility] Comment on above: Order Comment: Speci men Type: BLOOD SPECIMEN Ordering Facility: [facility] Address: [address] [place] [address] Performed By: #### 5 8410-2 #### [facility] CLIA [id number] [address] [place] WBC (Bld) [#/Vol] 5.59 10*3/uL Normal 3.70-11.00 [facility] Comment on above: Order Comment: Speci men Type: BLOOD SPECIMEN Ordering Facility: [facility] Address: [address] [place] [address] Performed By: #### 5 8410-2 #### [facility] CLIA [id number] [address] Comprehensive metabolic 2000 panelon 01-03-2024 Albumin [Mass/Vol] 4.3 g/dL Normal 3.9-4.9 [facility] Comment on above: Order Comment: Speci men Type: BLOOD SPECIMEN Ordering Facility: [facility] Address: [address] [place] [address] Performed By: #### 2 4323-8 #### [facility] CLIA [id number] [address] ALP [Catalytic activity/Vol] 87 U/L Normal 38-113 [facility] Comment on above: Order Comment: Speci men Type: BLOOD SPECIMEN Ordering Facility: [facility] Address: [address] [place] [address] Performed By: #### 2 4323-8 #### [facility] CLIA [id number] [address] ALT [Catalytic activity/Vol] 32 U/L Normal 10-54 [facility] Comment on above: Order Comment: Speci men Type: BLOOD SPECIMEN Ordering Facility: [facility] Address: [address] [place] [address] Performed By: #### 2 4323-8 #### [facility] CLIA [id number] [address] Anion gap [Moles/Vol] 11 mmol/L Normal 8-15 [facility] Comment on above: Order Comment: Speci men Type: BLOOD SPECIMEN Ordering Facility: [facility] Address: [address] [place] [address] Performed By: #### 2 4323-8 #### [facility] CLIA [id number] [address] [place] AST [Catalytic activity/Vol] 25 U/L Normal 14-40 [facility] Comment on above: Order Comment: Speci men Type: BLOOD SPECIMEN Ordering Facility: [facility] Address: [address] [place] [address] Performed By: #### 2 4323-8 #### [facility] CLIA [id number] [address] [place] [address] [place] Bilirubin [Mass/Vol] 0.4 mg/dL Normal 0.2-1.3 [facility] Comment on above: Order Comment: Speci men Type: BLOOD SPECIMEN Ordering Facility: [facility] Address: [address] [place] [address] Performed By: #### 2 4323-8 #### [facility] CLIA [id number] [address] [place] [address] [place] Calcium [Mass/Vol] 9.6 mg/dL Normal 8.5-10.2 [facility] Comment on above: Order Comment: Speci men Type: BLOOD SPECIMEN Ordering Facility: [facility] Address: [address] [place] [address] Performed By: #### 2 4323-8 #### [facility] CLIA [id number] [address] [place] [address] [place] Chloride [Moles/Vol] 101 mmol/L Normal 98-107 [facility] Comment on above: Order Comment: Speci men Type: BLOOD SPECIMEN Ordering Facility: [facility] Address: [address] [place] [address] Performed By: #### 2 4323-8 #### [facility] CLIA [id number] [address] [place] [address] [place] CO2 [Moles/Vol] 27 mmol/L Normal 22-30 [facility] Comment on above: Order Comment: Speci men Type: BLOOD SPECIMEN Ordering Facility: [facility] Address: [address] [place] [address] Performed By: #### 2 4323-8 #### [facility] CLIA [id number] [address] [place] [address] [place] Creatinine [Mass/Vol] 1.23 mg/dL High 0.73-1.22 [facility] Comment on above: Order Comment: Speci men Type: BLOOD SPECIMEN Ordering Facility: [facility] Address: [address] [place] [address] Performed By: #### 2 4323-8 #### [facility] CLIA [id number] [address] [place] [address] [place] Creatinine and Glomerular filtration rate.predicted panel (S/P/Bld) 62 mL/min/1.73m??? Normal >=60 [facility] Comment on above: Order Comment: Ann montemayor Type: BLOOD SPECIMEN Ordering Facility: [facility] Address: [address] [place] [address] Result Comment: Juanis mated Glomerular Filtration Rate (eGFR) is calculated using the 2020 CKD-EPI creatinine equation. This equation utilizes serum creatinine, sex, and age as parameters. The creatinine assay has traceable calibration to isotope dilution-mass spectrometry. Refer to KDIGO guidelines for clinical interpretation. In patients with unstable renal function, e.g. those with acute kidney injury, the eGFR may not accurately reflect actual GFR. Performed By: #### 2 4323-8 #### [facility] CLIA [id number] [address] [place] [address] [place] Glucose [Mass/Vol] 123 mg/dL High 74-99 [facility] Comment on above: Order Comment: Ann montemayor Type: BLOOD SPECIMEN Ordering Facility: [facility] Address: [address] [place] [address] Result Comment: The [place] Diabetes Association (ADA) provides guidance for cutoff [...] Standards of Medical Care in Diabetes 2016, [place] [employer]. Diabetes Care. 2016.39(Suppl 1). Performed By: #### 2 4323-8 #### [facility] CLIA [id number] [address] [place] [address] [place] Potassium [Moles/Vol] 4.4 mmol/L Normal 3.7-5.1 [facility] Comment on above: Order Comment: Speci men Type: BLOOD SPECIMEN Ordering Facility: [facility] Address: [address] [place] [address] Performed By: #### 2 4323-8 #### [facility] CLIA [id number] [address] [place] [address] [place] Protein [Mass/Vol] 6.7 g/dL Normal 6.3-8.0 [facility] Comment on above: Order Comment: Speci men Type: BLOOD SPECIMEN Ordering Facility: [facility] Address: [address] [place] [address] Performed By: #### 2 4323-8 #### [facility] CLIA [id number] [address] [place] [address] [place] Sodium [Moles/Vol] 139 mmol/L Normal 136-144 [facility] Comment on above: Order Comment: Speci men Type: BLOOD SPECIMEN Ordering Facility: [facility] Address: [address] [place] [address] Performed By: #### 2 4323-8 #### [facility] CLIA [id number] [address] [place] [address] [place] Urea nitrogen [Mass/Vol] 19 mg/dL Normal 9-24 [facility] Comment on above: Order Comment: Speci men Type: BLOOD SPECIMEN Ordering Facility: [facility] Address: [address] [place] [address] Performed By: #### 2 4323-8 #### [facility] CLIA [id number] [address] [place] [address] [place] Absolute lymphocyte countOrd ered By: Bj Momin on 05-24-2023 Lymphocytes Auto (Unsp spec) [#/Vol] 2.02 10*3/uL 0.83-4.51 [facility] Basophil percentageOrdered B y: Bj Momin on 05-24-2023 Basophils/100 WBC (Bld) 0.7 % 0-1 [facility] Eosinophils/100 WBC (Bld) 1.5 % 0-5 [facility] Neutrophils (Bld) [#/Vol] 4.2 10*3/uL 2.0-7.7 [facility] Neutrophils/100 WBC (Bld) 58.4 % 47-70 [facility] WBC (Bld) [#/Vol] 7.2 10*3/uL 4.4-11.0 [facility] Basophil percentage 3.4 mg/dL 2.5-4.9 [facility] Chloride [Moles/Vol] 107 mmol/L 98-107 [facility] [facility] [place] Glucose [Mass/Vol] 101 mg/dL 74-106 [facility] Comment on above: Fasting Glucose resu lt from 100 to 125 mg/dL suggests IMPAIRED HOMEOSTASIS per A.D.A. criteria. Potassium [Moles/Vol] 3.9 mmol/L 3.5-5.1 [facility] Sodium [Moles/Vol] 141 mmol/L 136-145 [facility] Blood erythrocytes count (nu mber/volume)Ordered By: Bj Momin on 05-24-2023 RBC (Bld) [#/Vol] 4.10 10*6/uL 4.6-6.2 [facility] Blood hemoglobin measurement (mass/volume)Ordered By: Bj Momin on 05-24-2023 Hemoglobin (Bld) [Mass/Vol] 13.6 g/dL 13.0-16.5 [facility] Blood lymphocytes/100 leukoc ytesOrdered By: Bj Momin on 05-24-2023 Lymphocytes/100 WBC (Bld) 27.9 % 19-41 [facility] Blood monocytes/100 leukocyt esOrdered By: Bj Momin on 05-24-2023 Monocytes/100 WBC (Bld) 10.8 % 0-10 [facility] Blood platelet mean volumeOr dered By: Bj Momin on 05-24-2023 Platelet mean volume (Bld) [Entitic vol] 9.1 fL 6.2-12.0 [facility] Determination of erythrocyte mean corpuscular volume (MCV)Ordered By: Bj Momin on 05-24-2023 MCV (RBC) [Entitic vol] 97.3 fL 80-94 [facility] Hematocrit Auto (Bld) [Volum e fraction]Ordered By: Bj Momin on 05-24-2023 Hematocrit (Bld) [Volume fraction] 39.9 % 40-54 [facility] Iron measurement (mass/mass) Ordered By: Bj Momin on 05-24-2023 Iron (Unsp spec) [Mass/Mass] 52 ug/dL 65-175 [facility] - Chemistry and C hemistry - challengeOrdered By: Bj Momin on 05-24-2023 CO2 [Moles/Vol] 30.0 mmol/L 21.0-32.0 [facility] Urea nitrogen/Creatinine [Mass ratio] 16.4 mg/mg 10-20 [facility] - Hematology and Cell countsOrdered By: Bj Momin on 05-24-2023 Erythrocyte distribution width (RBC) [Entitic vol] 46.0 fL 35.1-43.9 [facility] Erythrocyte distribution width (RBC) [Ratio] 13.0 % 11.6-14.6 [facility] Immature granulocytes/100 WBC (Bld) 0.700 % 0.0-0.9 [facility] Comment on above: IG% - Immature Granu locytes (promyelocytes, myelocytes and metamyelocytes) > 1% indicates that a LEFT SHIFT is Present. MCH (RBC) [Entitic mass] 33.2 pg 27.0-32.0 [facility] Nucleated RBC/100 WBC (Bld) [Ratio] 0 % 0-5 [facility] MCHC Auto (RBC) [Mass/Vol]Or dered By: Bj Momin on 05-24-2023 MCHC (RBC) [Mass/Vol] 34.1 g/dL 32-36 [facility] No Panel InformationOrdered By: Bj Momin on 05-24-2023 Parathyroid Hormone (Intact) 83.1 pg/mL 18.4-80.1 [facility] Estimated GFR (MDRD) Amer 67 mL/min >60 [facility] Comment on above: GFR Calc Estimated GFR (MDRD) Non-Af Amer 55 mL/min >60 [facility] Comment on above: Non- GFR Calc Prostate Specific Antigen Total 12.20 ng/mL 0.0-4.0 [facility] Comment on above: This test was perfor med using the TPSA assay method for the[facility] system. Values obtained with differentassay methods cannot be used interchangably.When changing PSA assays in the course of monitoring apatient, additional sequential testing should be carriedout to confirm baseline values. Total Iron Binding Capacity 297 ug/dL 250-450 [facility] Platelets bldOrdered By: Jimi Momin on 05-24-2023 Platelets (Bld) [#/Vol] 213 10*3/uL 150-450 [facility] Serum or plasma albumin timoteo urement (mass/volume)Ordered By: Bj Momin on 05-24-2023 Albumin [Mass/Vol] 3.8 g/dL 3.2-5.0 [facility] Serum or plasma calcium timoteo urement (mass/volume)Ordered By: Bj Momin on 05-24-2023 Calcium [Mass/Vol] 9.1 mg/dL 8.5-10.1 [facility] Serum or plasma creatinine m easurement (mass/volume)Ordered By: Bj Momin on 05-24-2023 Creatinine [Mass/Vol] 1.34 mg/dL 0.70-1.30 [facility] Comment on above: The validity of the calculated GFR & GFRAA in patients over 70 years has not been determined. Clinical correlation is essential. Serum or plasma ferritin darnell surement (mass/volume)Ordered By: Bj Momin on 05-24-2023 Ferritin [Mass/Vol] 118 ng/mL 26-388 [facility] Serum or plasma iron saturat ion measurement (mass fraction)Ordered By: Bj Momin on 05-24-2023 Iron saturation [Mass fraction] 17.5 % 15.0-55.0 [facility] Serum or plasma urea nitroge n measurement (mass/volume)Ordered By: Bj Momin on 05-24-2023 Urea nitrogen [Mass/Vol] 22 mg/dL 7-18 [facility] Serum or plasma uric acid me asurement (mass/volume)Ordered By: Bj Momin on 05-24-2023 Urate [Mass/Vol] 6.3 mg/dL 3.5-7.2 [facility] Comment on above: The drugs N-Acetylcy steine and Metamizole may falsely depress this assay. Urine creatinine measurement (mass/volume)Ordered By: Bj Momin on 05-24-2023 Creatinine (U) [Mass/Vol] 144.00 mg/dL NO RANGE EST. [facility] Urine protein measurement (m ass/volume)Ordered By: Bj Momin on 05-24-2023 Protein (U) [Mass/Vol] 11.0 mg/dL 0.0-11.8 [facility] Urine protein/creatinine mas s ratioOrdered By: Bj Momin on 05-24-2023 Protein/Creatinine (U) [Mass ratio] 76 mg/g CRE 0-200 [facility] No Panel InformationOrdered By: Bj Momin on 12-27-2022 Prostate Specific Antigen Total 0.16 ng/mL 0.0-4.0 [facility] Comment on above: This test was perfor med using the TPSA assay method for the[employer] chemistry system. Values obtained with differentassay methods cannot be used interchangably.When changing PSA assays in the course of monitoring apatient, additional sequential testing should be carriedout to confirm baseline values. No Panel InformationOrdered By: Dr. Momin on 08-21-2022 Prostate Specific Antigen Total 0.59 ng/mL 0.0-4.0 [facility] Comment on above: This test was perfor med using the TPSA assay method for the[employer] chemistry system. Values obtained with differentassay methods cannot be used interchangably.When changing PSA assays in the course of monitoring apatient, additional sequential testing should be carriedout to confirm baseline values. PTHon 06-27-2022 PTH, Intact 61.1 pg/mL Normal 18.5-88.0 [facility] ([place] Comment on above: Performed By: #### A DIFF, ANEU, URIC, FES, RFP, GFR, CBC #### [address] [address] #### PTH #### [address] [address] .Auto Diffon 06-26-2022 Basophil, Absolute 0.1 10 3/mcL Normal 0.0-0.2 [facility] ([place]) Comment on above: Performed By: #### A DIFF, ANEU, URIC, FES, RFP, GFR, CBC #### [address] [address] #### PTH #### [address] [address] Basophils/100 WBC (Bld) 0.9 % Normal 0.0-2.5 [facility] ([place]) Comment on above: Performed By: #### A DIFF, ANEU, URIC, FES, RFP, GFR, CBC #### [place] [address] #### PTH #### [address] [address] Eosinophil, Absolute 0.1 10 3/mcL Normal 0.0-0.4 Counts include 234 beds at the [facility] ([place]) Comment on above: Performed By: #### A DIFF, ANEU, URIC, FES, RFP, GFR, CBC #### [address] [address] #### PTH #### [address] [address] Eosinophils/100 WBC (Bld) 1.5 % Normal 0.0-7.0 [facility] ([place]) Comment on above: Performed By: #### A DIFF, ANEU, URIC, FES, RFP, GFR, CBC #### [address] [address] #### PTH #### [address] [address] Lymphocyte, Absolute 1.7 10 3/mcL Normal 0.8-3.9 Counts include 234 beds at the [facility] ([place]) Comment on above: Performed By: #### A DIFF, ANEU, URIC, FES, RFP, GFR, CBC #### [place] [address] #### PTH #### [address] [address] Lymphocytes/100 WBC (Bld) 27.7 % Normal 10.0-50.0 [facility] ([place]) Comment on above: Performed By: #### A DIFF, ANEU, URIC, FES, RFP, GFR, CBC #### [place] [id number] #### PTH #### [address] [address] Monocyte, Absolute 0.7 10 3/mcL Normal 0.2-1.0 [facility] ([place] Comment on above: Performed By: #### A DIFF, ANEU, URIC, FES, RFP, GFR, CBC #### [place] [address] #### PTH #### [address] [address] Monocytes/100 WBC (Bld) 11.5 % Normal 1.7-13.0 [facility] ([place] Comment on above: Performed By: #### A DIFF, ANEU, URIC, FES, RFP, GFR, CBC #### [address] [address] #### PTH #### [address] [address] Neutrophils/100 WBC (Bld) 58.4 % Normal 37.0-80.0 [facility] ([place] Comment on above: Performed By: #### A DIFF, ANEU, URIC, FES, RFP, GFR, CBC #### [place] [address] #### PTH #### [address] [address] .GFRon 06-26-2022 GFR Non- 50 ml/min/1.73sqm Normal [facility] ([place] Comment on above: Result Comment: GFR Population mean for , [...] 15 mL/min/1.73 square meters Performed By: #### A DIFF, ANEU, URIC, FES, RFP, GFR, CBC #### [address] [address] #### PTH #### [address] [address] GFR 60 ml/min/1.73sqm Normal [facility] ([place] Comment on above: Result Comment: GFR Population mean for , [...] 15 mL/min/1.73 square meters Performed By: #### A DIFF, ANEU, URIC, FES, RFP, GFR, CBC #### [place] [address] #### PTH #### [address] [address] .NEUABSon 06-26-2022 Neutrophil, Absolute 3.6 10 3/mcL Normal 2.9-6.2 Counts include 234 beds at the [facility] ([place] Comment on above: Performed By: #### A DIFF, ANEU, URIC, FES, RFP, GFR, CBC #### [address] [address] #### PTH #### [address] [address] CBCon 06-26-2022 Erythrocyte distribution width (RBC) [Ratio] 13.7 % Normal 11.5-14.5 [facility] ([place] Comment on above: Performed By: #### A DIFF, ANEU, URIC, FES, RFP, GFR, CBC #### [address] [address] #### PTH #### [address] [address] Hematocrit (Bld) [Volume fraction] 39.8 % Low 42.0-52.0 [facility] ([place] Comment on above: Performed By: #### A DIFF, ANEU, URIC, FES, RFP, GFR, CBC #### [place] [address] #### PTH #### [place] [address] Hgb 13.5 G/dL Low 14.0-18.0 [facility] ([place] Comment on above: Performed By: #### A DIFF, ANEU, URIC, FES, RFP, GFR, CBC #### [place] [address] #### PTH #### [place] [address] MCH (RBC) [Entitic mass] 31.7 pg High 27.0-31.2 [facility] ([place]) Comment on above: Performed By: #### A DIFF, ANEU, URIC, FES, RFP, GFR, CBC #### [place] [address] #### PTH #### [place] [address] MCHC 34.0 G/dL Normal 31.8-35.4 [facility] ([place] Comment on above: Performed By: #### A DIFF, ANEU, URIC, FES, RFP, GFR, CBC #### [place] [address] #### PTH #### [place] [address] MCV (RBC) [Entitic vol] 93.2 fL Normal 80.0-94.0 [facility] ([place] Comment on above: Performed By: #### A DIFF, ANEU, URIC, FES, RFP, GFR, CBC #### [place] [address] #### PTH #### [place] [address] Platelet 221 10 3/mcL Normal 130-400 [facility] ([place] Comment on above: Performed By: #### A DIFF, ANEU, URIC, FES, RFP, GFR, CBC #### [address] [address] #### PTH #### [place] [address] Platelet mean volume (Bld) [Entitic vol] 7.1 fL Low 7.4-10.4 [facility] ([place] Comment on above: Performed By: #### A DIFF, ANEU, URIC, FES, RFP, GFR, CBC #### [place] [address] #### PTH #### [place] [address] RBC 4.27 10 6/mcL Normal 4.04-6.13 [facility] ([place] Comment on above: Performed By: #### A DIFF, ANEU, URIC, FES, RFP, GFR, CBC #### [place] [address] #### PTH #### [place] [address] WBC 6.2 10 3/mcL Normal 4.6-10.8 [facility] ([place] Comment on above: Performed By: #### A DIFF, ANEU, URIC, FES, RFP, GFR, CBC #### [place] [address] #### PTH #### [place] [address] FESon 06-26-2022 Iron [Mass/Vol] 50 ug/dL Low 65-175 [facility] ([place] Comment on above: Performed By: #### A DIFF, ANEU, URIC, FES, RFP, GFR, CBC #### [place] [address] #### PTH #### [place] [address] Iron Sat 18 % Normal [facility] ([place] Comment on above: Performed By: #### A DIFF, ANEU, URIC, FES, RFP, GFR, CBC #### [address] [address] #### PTH #### [address] [address] TIBC 285 mcg/dL Normal 250-450 [facility] ([place] Comment on above: Performed By: #### A DIFF, ANEU, URIC, FES, RFP, GFR, CBC #### [address] [address] #### PTH #### [place] [id number] [address] [place] [address] LABORATORYOrdered By: Mamta Machado on 06-26-2022 Creatinine (U) [Mass/Vol] 33.6 mg/dL Invalid Interpretation Code 39.0 - 259.0 mg/dL AO ADM SS Protein (U) [Mass/Vol] mg/dL Invalid Interpretation Code 0 - 11 mg/dL AO ADM SS U Ratio Prot/Creat Unable to Calculate Invalid Interpretation Code AO Chemistry S Comment on above: Result Comment: Unab le to calculate this test result accurately. Results used to calculate this test are outside the reportable range. LABORATORYOrdered By: SYSTEM SYSTEM on 06-26-2022 Albumin BCP dye [Mass/Vol] 3.8 G/dL Invalid Interpretation Code 3.4 - 4.8 G/dL AO ADM SS Calcium [Mass/Vol] 9.4 mg/dL Invalid Interpretation Code 8.4 - 10.2 mg/dL AO ADM SS Chloride [Moles/Vol] 104 mmol/L Invalid Interpretation Code 98 - 107 mmol/L AO ADM SS CO2 [Moles/Vol] 31 mmol/L Invalid Interpretation Code 23 - 31 mmol/L AO ADM SS Creatinine [Mass/Vol] 1.40 mg/dL Invalid Interpretation Code 0.70 - 1.30 mg/dL AO ADM SS Electrolyte Balance 5.0 mEq/L Invalid Interpretation Code 4.0 - 15.0 mEq/L AO ADM SS GFR 60 ml/min/1.73sqm Invalid Interpretation Code AO Chemistry S GFR Non- 50 ml/min/1.73sqm Invalid Interpretation Code AO Chemistry S Glucose [Mass/Vol] 105 mg/dL Invalid Interpretation Code 83 - 110 mg/dL AO ADM SS Iron [Mass/Vol] 50 ug/dL Invalid Interpretation Code 65 - 175 mcg/dL AO ADM SS Iron binding capacity [Mass/Vol] 285 mcg/dL Invalid Interpretation Code 250 - 450 mcg/dL AO ADM SS Iron Sat 18 1 Invalid Interpretation Code AO ADM SS Parathyrin.intact [Mass/Vol] 61.1 pg/mL Invalid Interpretation Code 18.5 - 88.0 pg/mL AH ADM SS Phosphate [Mass/Vol] 3.9 mg/dL Invalid Interpretation Code 2.3 - 4.1 mg/dL AO ADM SS Potassium [Moles/Vol] 4.5 mmol/L Invalid Interpretation Code 3.5 - 5.1 mmol/L AO ADM SS Sodium [Moles/Vol] 140 mmol/L Invalid Interpretation Code 136 - 145 mmol/L AO ADM SS Urea nitrogen [Mass/Vol] 25 mg/dL Invalid Interpretation Code 7 - 18 mg/dL AO ADM SS Urea nitrogen/Creatinine [Mass ratio] 18 ratio Invalid Interpretation Code 7 - 27 ratio AO ADM SS Uric Acid Lvl 4.2 mg/dL Invalid Interpretation Code 3.5 - 7.2 mg/dL AO ADM SS LABORATORYOrdered By: Mariaelena Giraldo on 06-26-2022 Basophil, Absolute 0.1 103/mcL Invalid Interpretation Code 0.0 - 0.2 10^3/mcL AO Workflow SS Basophils/100 WBC (Bld) 0.9 % Invalid Interpretation Code 0.0 - 2.5 % AO Workflow SS Eosinophil, Absolute 0.1 103/mcL Invalid Interpretation Code 0.0 - 0.4 10^3/mcL AO Workflow SS Eosinophils/100 WBC (Bld) 1.5 % Invalid Interpretation Code 0.0 - 7.0 % AO Workflow SS Erythrocyte distribution width (RBC) [Ratio] 13.7 % Invalid Interpretation Code 11.5 - 14.5 % AO Workflow SS Hematocrit (Bld) [Volume fraction] 39.8 % Invalid Interpretation Code 42.0 - 52.0 % AO Workflow SS Hemoglobin (Bld) [Mass/Vol] 13.5 G/dL Invalid Interpretation Code 14.0 - 18.0 G/dL AO Workflow SS Lymphocyte, Absolute 1.7 103/mcL Invalid Interpretation Code 0.8 - 3.9 10^3/mcL AO Workflow SS Lymphocytes/100 WBC (Bld) 27.7 % Invalid Interpretation Code 10.0 - 50.0 % AO Workflow SS MCH (RBC) [Entitic mass] 31.7 pg Invalid Interpretation Code 27.0 - 31.2 pg AO Workflow SS MCHC 34.0 G/dL Invalid Interpretation Code 31.8 - 35.4 G/dL AO Workflow SS MCV (RBC) [Entitic vol] 93.2 fL Invalid Interpretation Code 80.0 - 94.0 fL AO Workflow SS Monocyte, Absolute 0.7 103/mcL Invalid Interpretation Code 0.2 - 1.0 10^3/mcL AO Workflow SS Monocytes/100 WBC (Bld) 11.5 % Invalid Interpretation Code 1.7 - 13.0 % AO Workflow SS Neutrophil, Absolute 3.6 103/mcL Invalid Interpretation Code 2.9 - 6.2 10^3/mcL AO Workflow SS Neutrophils/100 WBC (Bld) 58.4 % Invalid Interpretation Code 37.0 - 80.0 % AO Workflow SS Platelet mean volume (Bld) [Entitic vol] 7.1 fL Invalid Interpretation Code 7.4 - 10.4 fL AO Workflow SS Platelets (Bld) [#/Vol] 221 103/mcL Invalid Interpretation Code 130 - 400 10^3/mcL AO Workflow SS RBC (Bld) [#/Vol] 4.27 106/mcL Invalid Interpretation Code 4.04 - 6.13 10^6/mcL AO Workflow SS WBC (Bld) [#/Vol] 6.2 103/mcL Invalid Interpretation Code 4.6 - 10.8 10^3/mcL AO Workflow SS RFPon 06-26-2022 Albumin Level 3.8 G/dL Normal 3.4-4.8 [facility] ([place]) Comment on above: Performed By: #### A DIFF, ANEU, URIC, FES, RFP, GFR, CBC #### [address] [address] #### PTH #### [address] [address] BUN/Creatinine Ratio 18 ratio Normal 12-07 [facility] ([place]) Comment on above: Performed By: #### A DIFF, ANEU, URIC, FES, RFP, GFR, CBC #### [address] [address] #### PTH #### [address] [address] Calcium [Mass/Vol] 9.4 mg/dL Normal 8.4-10.2 [facility] ([place]) Comment on above: Performed By: #### A DIFF, ANEU, URIC, FES, RFP, GFR, CBC #### [address] [address] #### PTH #### [address] [address] Chloride [Moles/Vol] 104 mmol/L Normal 98-107 [facility] ([place]) Comment on above: Performed By: #### A DIFF, ANEU, URIC, FES, RFP, GFR, CBC #### [address] [address] #### PTH #### [address] [address] CO2 [Moles/Vol] 31 mmol/L Normal 23-31 [facility] ([place] Comment on above: Performed By: #### A DIFF, ANEU, URIC, FES, RFP, GFR, CBC #### [address] [address] #### PTH #### [address] [address] Creatinine [Mass/Vol] 1.40 mg/dL High 0.70-1.30 [facility] ([place]) Comment on above: Performed By: #### A DIFF, ANEU, URIC, FES, RFP, GFR, CBC #### [address] [address] #### PTH #### [address] [address] Electrolyte Balance 5.0 mEq/L Normal 4.0-15.0 [facility] ([place]) Comment on above: Performed By: #### A DIFF, ANEU, URIC, FES, RFP, GFR, CBC #### [address] [address] #### PTH #### [address] [address] Glucose [Mass/Vol] 105 mg/dL Normal 83-110 [facility] ([place]) Comment on above: Performed By: #### A DIFF, ANEU, URIC, FES, RFP, GFR, CBC #### [address] [address] #### PTH #### [address] [address] Phosphate [Mass/Vol] 3.9 mg/dL Normal 2.3-4.1 [facility] ([place] Comment on above: Performed By: #### A DIFF, ANEU, URIC, FES, RFP, GFR, CBC #### [place] [address] #### PTH #### [address] [address] Potassium [Moles/Vol] 4.5 mmol/L Normal 3.5-5.1 [facility] ([place]) Comment on above: Performed By: #### A DIFF, ANEU, URIC, FES, RFP, GFR, CBC #### [place] [address] #### PTH #### [address] [address] Sodium [Moles/Vol] 140 mmol/L Normal 136-145 [facility] ([place] Comment on above: Performed By: #### A DIFF, ANEU, URIC, FES, RFP, GFR, CBC #### [place] [address] #### PTH #### [address] [address] Urea nitrogen [Mass/Vol] 25 mg/dL High 7-18 [facility] ([place] Comment on above: Performed By: #### A DIFF, ANEU, URIC, FES, RFP, GFR, CBC #### [place] [address] #### PTH #### [address] [address] RPCURon 06-26-2022 U Creatinine 33.6 mg/dL Low 39.0-259.0 [facility] ([place] Comment on above: Performed By: #### R PCUR #### [place] [address] [place], [place] [address] U Protein <6 Normal 0-11 [facility] ([place] Comment on above: Performed By: #### R PCUR #### [place] [address] [place], [place] [address] U Ratio Prot/Creat Unable to Calculate Normal [facility]) Comment on above: Result Comment: Unab le to calculate this test result accurately. Results used to calculate this test are outside the reportable range. Performed By: #### R PCUR #### [address] [address] URICon 06-26-2022 Uric Acid Lvl 4.2 mg/dL Normal 3.5-7.2 [facility] ([place] Comment on above: Performed By: #### A DIFF, ANEU, URIC, FES, RFP, GFR, CBC #### [address] [address] #### PTH #### [place] [address] No Panel Informationon 04-24 Prostate Specific Antigen Total 42.30 ng/mL 0.0-4.0 [facility] Work Phone: Comment on above: This test was perfor med using the TPSA assay method for the[facility]. Values obtained with differentassay methods cannot be used interchangably.When changing PSA assays in the course of monitoring apatient, additional sequential testing should be carriedout to confirm baseline values. Basic metabolic 2000 panelon 03-13-2022 Anion gap [Moles/Vol] 6 mmol/L Low 9 - 18 mmol/L [facility] Calcium [Mass/Vol] 8.9 mg/dL 8.5 - 10. 2 mg/dL [facility] Chloride [Moles/Vol] 106 mmol/L High 97 - 10 5 mmol/L [facility] CO2 [Moles/Vol] 28 mmol/L 22 - 30 mmol/L [facility] Creatinine [Mass/Vol] 1.27 mg/dL High 0.73 - 1.22 mg/dL [facility] Estimated Glomerular Filtration Rate 60 mL/min/1.73m >=60 mL/min/1.7 3m [facility] Glucose [Mass/Vol] 91 mg/dL 74 - 99 mg/dL [facility] Potassium [Moles/Vol] 4.1 mmol/L 3.7 - 5.1 mmol/L [facility] Sodium [Moles/Vol] 140 mmol/L 136 - 144 mmol/L [facility] Urea nitrogen [Mass/Vol] 16 mg/dL 9 - 24 mg/dL [facility] CBC panel Auto (Bld)on 03-13 Erythrocyte distribution width (RBC) [Ratio] 13.6 % 11.5 - 15.0 % [facility] Hematocrit (Bld) [Volume fraction] 39.0 % 39.0 - 51.0 % [facility] Hemoglobin (Bld) [Mass/Vol] 12.8 g/dL Low 13.0 - 17.0 g/dL [facility] MCH (RBC) [Entitic mass] 33.0 pg 26.0 - 34.0 pg [facility] MCHC (RBC) [Mass/Vol] 32.8 g/dL 30.5 - 36.0 g/dL [facility] MCV (RBC) [Entitic vol] 100.5 fL High 80.0 - 100.0 fL [facility] Nucleated RBC (Bld) [#/Vol] <0.01 k/uL [facility] Platelet mean volume (Bld) [Entitic vol] 9.7 fL 9.0 - 12.7 fL [facility] Platelets (Bld) [#/Vol] 206 10*3/uL 150 - 400 k/uL [facility] RBC (Bld) [#/Vol] 3.88 10*6/uL Low 4.20 - 6.00 m/uL [facility] WBC (Bld) [#/Vol] 5.88 10*3/uL 3.70 - 11.00 k/uL [facility] NT PRO BNPon 03-13-2022 Natriuretic peptide.B prohormone N-Terminal [Mass/Vol] 789 pg/mL High <125 pg/mL [facility] ECG COMPLETEon 01-24-2022 Atrial Rate 178 BPM [facility] Calculated R Watkins -73 degrees [facility] Calculated T Watkins 104 degrees [facility] QRS Duration 102 ms [facility] QT Interval 344 ms [facility] QTC Calculation ([place]azett) 478 ms [facility] Ventricular Rate 116 BPM [facility] No Panel Informationon 01-04 Prostate Specific Antigen Total 17.60 ng/mL 0.0-4.0 [facility] Work Phone: Comment on above: This test was perfor med using the TPSA assay method for [employer] chemistry system. Values obtained with differentassay methods cannot be used interchangably.When changing PSA assays in the course of monitoring apatient, additional sequential testing should be carriedout to confirm baseline values. CMPon 12-01-2021 ALT [Catalytic activity/Vol] 41 U/L Normal 16-63 [facility] ([place] Comment on above: Performed By: #### A DIFF, ANEU, URIC, FES, RFP, GFR, CBC #### [place] [address] #### PTH #### [place] [address] .Auto Diffon 11-30-2021 Basophil, Absolute 0.0 10 3/mcL Normal 0.0-0.2 [facility] ([place]) Comment on above: Performed By: #### A DIFF, ANEU, URIC, FES, RFP, GFR, CBC #### [address] [address] #### PTH #### [address] [address] Basophils/100 WBC (Bld) 0.7 % Normal 0.0-2.5 [facility] ([place] Comment on above: Performed By: #### A DIFF, ANEU, URIC, FES, RFP, GFR, CBC #### [place] [address] #### PTH #### [place] [address] Eosinophil, Absolute 0.1 10 3/mcL Normal 0.0-0.4 Counts include 234 beds at the [facility] ([place]) Comment on above: Performed By: #### A DIFF, ANEU, URIC, FES, RFP, GFR, CBC #### [address] [address] #### PTH #### [address] [address] Eosinophils/100 WBC (Bld) 1.7 % Normal 0.0-7.0 [facility] ([place] Comment on above: Performed By: #### A DIFF, ANEU, URIC, FES, RFP, GFR, CBC #### [place] [address] #### PTH #### [address] [address] Lymphocyte, Absolute 1.6 10 3/mcL Normal 0.8-3.9 Counts include 234 beds at the [facility] ([place]) Comment on above: Performed By: #### A DIFF, ANEU, URIC, FES, RFP, GFR, CBC #### [place] [address] #### PTH #### [address] [address] Lymphocytes/100 WBC (Bld) 30.1 % Normal 10.0-50.0 [facility] ([place]) Comment on above: Performed By: #### A DIFF, ANEU, URIC, FES, RFP, GFR, CBC #### [place] [address] #### PTH #### [address] [address] Monocyte, Absolute 0.6 10 3/mcL Normal 0.2-1.0 [facility] ([place]) Comment on above: Performed By: #### A DIFF, ANEU, URIC, FES, RFP, GFR, CBC #### [place] [address] #### PTH #### [address] [address] Monocytes/100 WBC (Bld) 10.6 % Normal 1.7-13.0 [facility] ([place]) Comment on above: Performed By: #### A DIFF, ANEU, URIC, FES, RFP, GFR, CBC #### [place] [address] #### PTH #### [address] [address] Neutrophils/100 WBC (Bld) 56.9 % Normal 37.0-80.0 [facility] ([place]) Comment on above: Performed By: #### A DIFF, ANEU, URIC, FES, RFP, GFR, CBC #### [address] [address] #### PTH #### [address] [address] .GFRon 11-30-2021 GFR 59 ml/min/1.73sqm Normal [facility] ([place]) Comment on above: Result Comment: GFR Population mean for , [...] 15 mL/min/1.73 square meters Performed By: #### A DIFF, ANEU, URIC, FES, RFP, GFR, CBC #### [address] [address] #### PTH #### [address] [address] GFR Non- 49 ml/min/1.73sqm Normal [facility] ([place]) Comment on above: Result Comment: GFR Population mean for , [...] 15 mL/min/1.73 square meters Performed By: #### A DIFF, ANEU, URIC, FES, RFP, GFR, CBC #### [address] [address] #### PTH #### [place] [address] .MDWon 11-30-2021 Monocyte Distribution Width Not performed Normal 0.00-20.00 [facility] ([place]) Comment on above: Result Comment: MDW testing performed only on adult ER patients between the ages of 18-89 years. Performed By: #### A DIFF, ANEU, URIC, FES, RFP, GFR, CBC #### [place] [address] #### PTH #### [place] [address] .NEUABSon 11-30-2021 Neutrophil, Absolute 3.1 10 3/mcL Normal 2.9-6.2 Counts include 234 beds at the [facility] ([place]) Comment on above: Performed By: #### A DIFF, ANEU, URIC, FES, RFP, GFR, CBC #### [place] [address] #### PTH #### [place] [address] CBCon 11-30-2021 Erythrocyte distribution width (RBC) [Ratio] 14.2 % Normal 11.5-14.5 [facility] ([place]) Comment on above: Performed By: #### A DIFF, ANEU, URIC, FES, RFP, GFR, CBC #### [place] [address] #### PTH #### [place] [address] Hematocrit (Bld) [Volume fraction] 37.2 % Low 42.0-52.0 [facility] ([place]) Comment on above: Performed By: #### A DIFF, ANEU, URIC, FES, RFP, GFR, CBC #### [place] [address] #### PTH #### [place] [address] Hgb 12.9 G/dL Low 14.0-18.0 [facility] ([place] Comment on above: Performed By: #### A DIFF, ANEU, URIC, FES, RFP, GFR, CBC #### [place] [address] #### PTH #### [place] [address] MCH (RBC) [Entitic mass] 33.2 pg High 27.0-31.2 [facility] ([place] Comment on above: Performed By: #### A DIFF, ANEU, URIC, FES, RFP, GFR, CBC #### [place] [address] #### PTH #### [place] [address] MCHC 34.6 G/dL Normal 31.8-35.4 [facility] ([place] Comment on above: Performed By: #### A DIFF, ANEU, URIC, FES, RFP, GFR, CBC #### [place] [address] #### PTH #### [place] [address] MCV (RBC) [Entitic vol] 96.1 fL High 80.0-94.0 [facility] ([place]) Comment on above: Performed By: #### A DIFF, ANEU, URIC, FES, RFP, GFR, CBC #### [place] [address] #### PTH #### [place] [address] Platelet 208 10 3/mcL Normal 130-400 [facility] ([place]) Comment on above: Performed By: #### A DIFF, ANEU, URIC, FES, RFP, GFR, CBC #### [place] [address] #### PTH #### [place] [address] Platelet mean volume (Bld) [Entitic vol] 7.3 fL Low 7.4-10.4 [facility] ([place]) Comment on above: Performed By: #### A DIFF, ANEU, URIC, FES, RFP, GFR, CBC #### [place] [address] #### PTH #### [place] [address] RBC 3.87 10 6/mcL Low 4.04-6.13 [facility] ([place] Comment on above: Performed By: #### A DIFF, ANEU, URIC, FES, RFP, GFR, CBC #### [place] [address] #### PTH #### [place] [address] WBC 5.4 10 3/mcL Normal 4.6-10.8 [facility] ([place] Comment on above: Performed By: #### A DIFF, ANEU, URIC, FES, RFP, GFR, CBC #### [place] [address] #### PTH #### [place] [address] CMPon 11-30-2021 Albumin Level 3.7 G/dL Normal 3.4-4.8 [facility] ([place]) Comment on above: Performed By: #### A DIFF, ANEU, URIC, FES, RFP, GFR, CBC #### [place] [address] #### PTH #### [place] [address] Albumin/Globulin [Mass ratio] 1.4 {ratio} Normal 1.1-2.5 [facility] ([place]) Comment on above: Performed By: #### A DIFF, ANEU, URIC, FES, RFP, GFR, CBC #### [place] [address] #### PTH #### [address] [address] ALP [Catalytic activity/Vol] 68 U/L Normal 40-135 [facility] ([place] Comment on above: Performed By: #### A DIFF, ANEU, URIC, FES, RFP, GFR, CBC #### [address] [address] #### PTH #### [address] [address] AST [Catalytic activity/Vol] 25 U/L Normal 10-40 [facility] ([place]) Comment on above: Performed By: #### A DIFF, ANEU, URIC, FES, RFP, GFR, CBC #### [place] [address] #### PTH #### [address] [address] Bili Total 0.5 mg/dL Normal 0.2-1.0 [facility] ([place]) Comment on above: Result Comment: Use of this assay is not recommended for patients undergoing treatment with eltrombopag due to the potential for falsely elevated results. Performed By: #### A DIFF, ANEU, URIC, FES, RFP, GFR, CBC #### [place] [address] #### PTH #### [address] [address] BUN/Creatinine Ratio 13 ratio Normal 7-27 [facility] ([place]) Comment on above: Performed By: #### A DIFF, ANEU, URIC, FES, RFP, GFR, CBC #### [place] [address] #### PTH #### [address] [address] Calcium [Mass/Vol] 9.0 mg/dL Normal 8.4-10.2 [facility] ([place]) Comment on above: Performed By: #### A DIFF, ANEU, URIC, FES, RFP, GFR, CBC #### [place] [address] #### PTH #### [address] [address] Chloride [Moles/Vol] 106 mmol/L Normal 98-107 [facility] ([place]) Comment on above: Performed By: #### A DIFF, ANEU, URIC, FES, RFP, GFR, CBC #### [address] [address] #### PTH #### [address] [address] CO2 [Moles/Vol] 27 mmol/L Normal 23-31 [facility] ([place]) Comment on above: Performed By: #### A DIFF, ANEU, URIC, FES, RFP, GFR, CBC #### [address] [address] #### PTH #### [address] [address] Creatinine [Mass/Vol] 1.43 mg/dL High 0.70-1.30 [facility] ([place]) Comment on above: Performed By: #### A DIFF, ANEU, URIC, FES, RFP, GFR, CBC #### [address] [address] #### PTH #### [address] [address] Electrolyte Balance 9.0 mEq/L Normal 4.0-15.0 [facility] ([place]) Comment on above: Performed By: #### A DIFF, ANEU, URIC, FES, RFP, GFR, CBC #### [address] [address] #### PTH #### [address] [address] Globulin 2.6 G/dL Normal [facility] ([place]) Comment on above: Performed By: #### A DIFF, ANEU, URIC, FES, RFP, GFR, CBC #### [address] [address] #### PTH #### [address] [address] Glucose [Mass/Vol] 93 mg/dL Normal 83-110 [facility] ([place]) Comment on above: Performed By: #### A DIFF, ANEU, URIC, FES, RFP, GFR, CBC #### [address] [address] #### PTH #### [address] [address] Potassium [Moles/Vol] 4.0 mmol/L Normal 3.5-5.1 [facility] ([place]) Comment on above: Performed By: #### A DIFF, ANEU, URIC, FES, RFP, GFR, CBC #### [address] [address] #### PTH #### [place] [address] Sodium [Moles/Vol] 142 mmol/L Normal 136-145 [facility] ([place]) Comment on above: Performed By: #### A DIFF, ANEU, URIC, FES, RFP, GFR, CBC #### [place] [address] #### PTH #### [place] [address] Total Protein 6.3 G/dL Low 6.4-8.2 [facility] ([place]) Comment on above: Performed By: #### A DIFF, ANEU, URIC, FES, RFP, GFR, CBC #### [address] [address] #### PTH #### [address] [address] Urea nitrogen [Mass/Vol] 18 mg/dL Normal 7-18 [facility] ([place]) Comment on above: Performed By: #### A DIFF, ANEU, URIC, FES, RFP, GFR, CBC #### [place] [address] #### PTH #### [address] [address] LABORATORYOrdered By: Mariaelena Giraldo on 11-30-2021 Albumin BCP dye [Mass/Vol] 3.7 G/dL Invalid Interpretation Code 3.4 - 4.8 G/dL AO ADM SS Albumin/Globulin [Mass ratio] 1.4 {ratio} Invalid Interpretation Code 1.1 - 2.5 ratio AO ADM SS ALP [Catalytic activity/Vol] 68 U/L Invalid Interpretation Code 40 - 135 U/L AO ADM SS AST With P-5'-P [Catalytic activity/Vol] 25 U/L Invalid Interpretation Code 10 - 40 U/L AO ADM SS Bilirubin [Mass/Vol] 0.5 mg/dL Invalid Interpretation Code 0.2 - 1.0 mg/dL AO ADM SS Calcium [Mass/Vol] 9.0 mg/dL Invalid Interpretation Code 8.4 - 10.2 mg/dL AO ADM SS Chloride [Moles/Vol] 106 mmol/L Invalid Interpretation Code 98 - 107 mmol/L AO ADM SS Cholesterol [Mass/Vol] 215 mg/dL Invalid Interpretation Code 0 - 200 mg/dL AO ADM SS Cholesterol in HDL [Mass/Vol] 50 mg/dL Invalid Interpretation Code 40 - 60 mg/dL AO ADM SS Cholesterol in LDL [Mass/Vol] 137 mg/dL Invalid Interpretation Code 0 - 130 mg/dL AO ADM SS CO2 [Moles/Vol] 27 mmol/L Invalid Interpretation Code 23 - 31 mmol/L AO ADM SS Creatinine [Mass/Vol] 1.43 mg/dL Invalid Interpretation Code 0.70 - 1.30 mg/dL AO ADM SS Electrolyte Balance 9.0 mEq/L Invalid Interpretation Code 4.0 - 15.0 mEq/L AO ADM SS Globulin 2.6 G/dL Invalid Interpretation Code AO ADM SS Glucose [Mass/Vol] 93 mg/dL Invalid Interpretation Code 83 - 110 mg/dL AO ADM SS Potassium [Moles/Vol] 4.0 mmol/L Invalid Interpretation Code 3.5 - 5.1 mmol/L AO ADM SS Protein [Mass/Vol] 6.3 G/dL Invalid Interpretation Code 6.4 - 8.2 G/dL AO ADM SS Sodium [Moles/Vol] 142 mmol/L Invalid Interpretation Code 136 - 145 mmol/L AO ADM SS Triglyceride [Mass/Vol] 138 mg/dL Invalid Interpretation Code 0 - 150 mg/dL AO ADM SS Urea nitrogen [Mass/Vol] 18 mg/dL Invalid Interpretation Code 7 - 18 mg/dL AO ADM SS Urea nitrogen/Creatinine [Mass ratio] 13 ratio Invalid Interpretation Code 7 - 27 ratio AO ADM SS Uric Acid Lvl 8.3 mg/dL Invalid Interpretation Code 3.5 - 7.2 mg/dL AO ADM SS LABORATORYOrdered By: Mamta Machado on 11-30-2021 Basophil, Absolute 0.0 103/mcL Invalid Interpretation Code 0.0 - 0.2 10^3/mcL AO Workflow SS Basophils/100 WBC (Bld) 0.7 % Invalid Interpretation Code 0.0 - 2.5 % AO Workflow SS Eosinophil, Absolute 0.1 103/mcL Invalid Interpretation Code 0.0 - 0.4 10^3/mcL AO Workflow SS Eosinophils/100 WBC (Bld) 1.7 % Invalid Interpretation Code 0.0 - 7.0 % AO Workflow SS Erythrocyte distribution width (RBC) [Ratio] 14.2 % Invalid Interpretation Code 11.5 - 14.5 % AO Workflow SS Hematocrit (Bld) [Volume fraction] 37.2 % Invalid Interpretation Code 42.0 - 52.0 % AO Workflow SS Hemoglobin (Bld) [Mass/Vol] 12.9 G/dL Invalid Interpretation Code 14.0 - 18.0 G/dL AO Workflow SS Lymphocyte, Absolute 1.6 103/mcL Invalid Interpretation Code 0.8 - 3.9 10^3/mcL AO Workflow SS Lymphocytes/100 WBC (Bld) 30.1 % Invalid Interpretation Code 10.0 - 50.0 % AO Workflow SS MCH (RBC) [Entitic mass] 33.2 pg Invalid Interpretation Code 27.0 - 31.2 pg AO Workflow SS MCHC 34.6 G/dL Invalid Interpretation Code 31.8 - 35.4 G/dL AO Workflow SS MCV (RBC) [Entitic vol] 96.1 fL Invalid Interpretation Code 80.0 - 94.0 fL AO Workflow SS Monocyte, Absolute 0.6 103/mcL Invalid Interpretation Code 0.2 - 1.0 10^3/mcL AO Workflow SS Monocytes/100 WBC (Bld) 10.6 % Invalid Interpretation Code 1.7 - 13.0 % AO Workflow SS Neutrophil, Absolute 3.1 103/mcL Invalid Interpretation Code 2.9 - 6.2 10^3/mcL AO Workflow SS Neutrophils/100 WBC (Bld) 56.9 % Invalid Interpretation Code 37.0 - 80.0 % AO Workflow SS Platelet mean volume (Bld) [Entitic vol] 7.3 fL Invalid Interpretation Code 7.4 - 10.4 fL AO Workflow SS Platelets (Bld) [#/Vol] 208 103/mcL Invalid Interpretation Code 130 - 400 10^3/mcL AO Workflow SS RBC (Bld) [#/Vol] 3.87 106/mcL Invalid Interpretation Code 4.04 - 6.13 10^6/mcL AO Workflow SS WBC 5.4 103/mcL Invalid Interpretation Code 4.6 - 10.8 10^3/mcL AO Workflow SS LABORATORYOrdered By: SYSTEM SYSTEM on 11-30-2021 GFR 59 ml/min/1.73sqm Invalid Interpretation Code AO Chemistry S GFR Non- 49 ml/min/1.73sqm Invalid Interpretation Code AO Chemistry S Monocyte distribution width Auto (Bld) [Entitic vol] Not Performed 1 *NA* (11/30/21 12:56 PM) Invalid Interpretation Code 0.00 - 20.00 AO Hematology S Comment on above: Result Comment: MDW testing performed only on adult ER patients between the ages of 18-89 years. LIPIDon 11-30-2021 Cholesterol [Mass/Vol] 215 mg/dL High 0-200 Counts include 234 beds at the [facility] ([place]) Comment on above: Result Comment: Chol esterol Reference Interval: Less than 200 Desirable 200-239 Borderline high risk 240 and above High risk Performed By: #### A DIFF, ANEU, URIC, FES, RFP, GFR, CBC #### [address] [address] #### PTH #### [address] [address] Cholesterol in HDL [Mass/Vol] 50 mg/dL Normal 40-60 [facility] ([place]) Comment on above: Performed By: #### A DIFF, ANEU, URIC, FES, RFP, GFR, CBC #### [address] [address] #### PTH #### [address] [address] Cholesterol in LDL [Mass/Vol] 137 mg/dL High 0-130 [facility] ([place]) Comment on above: Performed By: #### A DIFF, ANEU, URIC, FES, RFP, GFR, CBC #### [address] [address] #### PTH #### [address] [address] Triglyceride [Mass/Vol] 138 mg/dL Normal 0-150 [facility] ([place]) Comment on above: Result Comment: Trig lyceride Reference Interval: Less than 150 Normal 150-199 Borderline high risk 200-499 High risk 500 or higher Very high risk Performed By: #### A DIFF, ANEU, URIC, FES, RFP, GFR, CBC #### [address] [address] #### PTH #### [place] [address] URICon 11-30-2021 Uric Acid Lvl 8.3 mg/dL High 3.5-7.2 [facility] ([place]) Comment on above: Performed By: #### A DIFF, ANEU, URIC, FES, RFP, GFR, CBC #### [address] [address] #### PTH #### [place] [address] LABORATORYOrdered By: Reinaldo Olmos on 07-01-2021 Natriuretic peptide.B prohormone N-Terminal [Mass/Vol] 369 pg/mL Invalid Interpretation Code 0 - 125 pg/mL AO ADM SS PBNPon 07-01-2021 Natriuretic peptide B (Bld) [Mass/Vol] 369 pg/mL High 0-125 [facility] ([place]) Comment on above: Result Comment: NT-p roBNP results of less than 300 pg/mL effectively rules out acute congestive heart failure with 99% negative predictive value. Performed By: #### P BNP #### [place] [id number] LABORATORYOrdered By: Mariaelena Giraldo on 06-17-2021 Albumin BCP dye [Mass/Vol] 3.8 G/dL Invalid Interpretation Code 3.4 - 4.8 G/dL AO ADM SS Basophil, Absolute 0.00 103/mcL Invalid Interpretation Code 0.00 - 0.19 10^3/mcL AO Auto Heme SS Basophils/100 WBC (Bld) 0.7 % Invalid Interpretation Code 0.0 - 2.5 % AO Auto Heme SS Calcium [Mass/Vol] 9.4 mg/dL Invalid Interpretation Code 8.4 - 10.2 mg/dL AO ADM SS Chloride [Moles/Vol] 104 mmol/L Invalid Interpretation Code 98 - 107 mmol/L AO ADM SS CO2 [Moles/Vol] 30 mmol/L Invalid Interpretation Code 23 - 31 mmol/L AO ADM SS Creatinine (U) [Mass/Vol] 152.4 mg/dL Invalid Interpretation Code 39.0 - 259.0 mg/dL AO ADM SS Creatinine [Mass/Vol] 1.39 mg/dL Invalid Interpretation Code 0.70 - 1.30 mg/dL AO ADM SS Electrolyte Balance 8.0 mEq/L Invalid Interpretation Code 4.0 - 15.0 mEq/L AO ADM SS Eosinophil, Absolute 0.10 103/mcL Invalid Interpretation Code 0.00 - 0.40 10^3/mcL AO Auto Heme SS Eosinophils/100 WBC (Bld) 0.9 % Invalid Interpretation Code 0.0 - 7.0 % AO Auto Heme SS Erythrocyte distribution width (RBC) [Ratio] 14.8 % Invalid Interpretation Code 11.5 - 14.5 % AO Auto Heme SS Glucose [Mass/Vol] 95 mg/dL Invalid Interpretation Code 83 - 110 mg/dL AO ADM SS Hematocrit (Bld) [Volume fraction] 34.6 % Invalid Interpretation Code 42.0 - 52.0 % AO Auto Heme SS Hemoglobin (Bld) [Mass/Vol] 12.0 G/dL Invalid Interpretation Code 14.0 - 18.0 G/dL AO Auto Heme SS Iron [Mass/Vol] 100 ug/dL Invalid Interpretation Code 65 - 175 mcg/dL AO ADM SS Iron binding capacity [Mass/Vol] 307 mcg/dL Invalid Interpretation Code 250 - 450 mcg/dL AO ADM SS Iron Sat 33 1 Invalid Interpretation Code AO ADM SS Lymphocyte, Absolute 1.30 103/mcL Invalid Interpretation Code 0.77 - 3.85 10^3/mcL AO Auto Heme SS Lymphocytes/100 WBC (Bld) 19.5 % Invalid Interpretation Code 10.0 - 50.0 % AO Auto Heme SS MCH (RBC) [Entitic mass] 32.7 pg Invalid Interpretation Code 27.0 - 31.2 pg AO Auto Heme SS MCHC (RBC) [Mass/Vol] 34.7 G/dL Invalid Interpretation Code 31.8 - 35.4 G/dL AO Auto Heme SS MCV (RBC) [Entitic vol] 94.3 fL Invalid Interpretation Code 80.0 - 94.0 fL AO Auto Heme SS Monocyte, Absolute 0.50 103/mcL Invalid Interpretation Code 0.15 - 1.00 10^3/mcL AO Auto Heme SS Monocytes/100 WBC (Bld) 8.2 % Invalid Interpretation Code 1.7 - 13.0 % AO Auto Heme SS Neutrophil, Absolute 4.60 103/mcL Invalid Interpretation Code 2.85 - 6.16 10^3/mcL AO Auto Heme SS Neutrophils/100 WBC (Bld) 70.7 % Invalid Interpretation Code 37.0 - 80.0 % AO Auto Heme SS Phosphate [Mass/Vol] 3.7 mg/dL Invalid Interpretation Code 2.3 - 4.1 mg/dL AO ADM SS Platelet mean volume (Bld) [Entitic vol] 7.3 fL Invalid Interpretation Code 7.4 - 10.4 fL AO Auto Heme SS Platelets (Bld) [#/Vol] 207 103/mcL Invalid Interpretation Code 130 - 400 10^3/mcL AO Auto Heme SS Potassium [Moles/Vol] 4.1 mmol/L Invalid Interpretation Code 3.5 - 5.1 mmol/L AO ADM SS Protein (U) [Mass/Vol] 13 mg/dL Invalid Interpretation Code 0 - 11 mg/dL AO ADM SS RBC (Bld) [#/Vol] 3.67 106/mcL Invalid Interpretation Code 4.04 - 6.13 10^6/mcL AO Auto Heme SS Sodium [Moles/Vol] 142 mmol/L Invalid Interpretation Code 136 - 145 mmol/L AO ADM SS Urea nitrogen [Mass/Vol] 26 mg/dL Invalid Interpretation Code 7 - 18 mg/dL AO ADM SS Urea nitrogen/Creatinine [Mass ratio] 19 ratio Invalid Interpretation Code 7 - 27 ratio AO ADM SS Uric Acid Lvl 6.8 mg/dL Invalid Interpretation Code 3.5 - 7.2 mg/dL AO ADM SS WBC (Bld) [#/Vol] 6.50 103/mcL Invalid Interpretation Code 4.60 - 10.80 10^3/mcL AO Auto Heme SS LABORATORYOrdered By: SYSTEM SYSTEM on 06-17-2021 Ferritin [Mass/Vol] 209.1 ng/mL Invalid Interpretation Code 26.0 - 388.0 ng/mL AH ADM SS GFR 61 ml/min/1.73sqm Invalid Interpretation Code AO Chemistry S GFR Non- 50 ml/min/1.73sqm Invalid Interpretation Code AO Chemistry S Parathyrin.intact [Mass/Vol] 42.6 pg/mL Invalid Interpretation Code 18.5 - 88.0 pg/mL AH ADM SS LABORATORYOrdered By: Kimberly Franco on 03-16-2021 Creatinine (U) [Mass/Vol] 113.9 mg/dL Invalid Interpretation Code 39.0 - 259.0 mg/dL AO ADM SS Protein (U) [Mass/Vol] 6 mg/dL Invalid Interpretation Code 0 - 11 mg/dL AO ADM SS LABORATORYOrdered By: Reinaldo Olmos on 03-16-2021 Albumin BCP dye [Mass/Vol] 4.0 G/dL Invalid Interpretation Code 3.4 - 4.8 G/dL AO ADM SS Basophil, Absolute 0.10 103/mcL Invalid Interpretation Code 0.00 - 0.19 10^3/mcL AO Auto Heme SS Basophils/100 WBC (Bld) 0.9 % Invalid Interpretation Code 0.0 - 2.5 % AO Auto Heme SS Calcium [Mass/Vol] 9.7 mg/dL Invalid Interpretation Code 8.4 - 10.2 mg/dL AO ADM SS Chloride [Moles/Vol] 101 mmol/L Invalid Interpretation Code 98 - 107 mmol/L AO ADM SS CO2 [Moles/Vol] 31 mmol/L Invalid Interpretation Code 23 - 31 mmol/L AO ADM SS Creatinine [Mass/Vol] 1.42 mg/dL Invalid Interpretation Code 0.70 - 1.30 mg/dL AO ADM SS Electrolyte Balance 8.0 mEq/L Invalid Interpretation Code AO ADM SS Eosinophil, Absolute 0.10 103/mcL Invalid Interpretation Code 0.00 - 0.40 10^3/mcL AO Auto Heme SS Eosinophils/100 WBC (Bld) 0.8 % Invalid Interpretation Code 0.0 - 7.0 % AO Auto Heme SS Erythrocyte distribution width (RBC) [Ratio] 13.5 % Invalid Interpretation Code 11.5 - 14.5 % AO Auto Heme SS Glucose [Mass/Vol] 107 mg/dL Invalid Interpretation Code 83 - 110 mg/dL AO ADM SS Hematocrit (Bld) [Volume fraction] 37.9 % Invalid Interpretation Code 42.0 - 52.0 % AO Auto Heme SS Hemoglobin (Bld) [Mass/Vol] 13.1 G/dL Invalid Interpretation Code 14.0 - 18.0 G/dL AO Auto Heme SS Iron [Mass/Vol] 74 ug/dL Invalid Interpretation Code 65 - 175 mcg/dL AO ADM SS Iron binding capacity [Mass/Vol] 330 mcg/dL Invalid Interpretation Code 250 - 450 mcg/dL AO ADM SS Iron Sat 22 1 Invalid Interpretation Code AO ADM SS Lymphocyte, Absolute 2.20 103/mcL Invalid Interpretation Code 0.77 - 3.85 10^3/mcL AO Auto Heme SS Lymphocytes/100 WBC (Bld) 29.0 % Invalid Interpretation Code 10.0 - 50.0 % AO Auto Heme SS MCH (RBC) [Entitic mass] 33.1 pg Invalid Interpretation Code 27.0 - 31.2 pg AO Auto Heme SS MCHC (RBC) [Mass/Vol] 34.6 G/dL Invalid Interpretation Code 31.8 - 35.4 G/dL AO Auto Heme SS MCV (RBC) [Entitic vol] 95.7 fL Invalid Interpretation Code 80.0 - 94.0 fL AO Auto Heme SS Monocyte, Absolute 0.80 103/mcL Invalid Interpretation Code 0.15 - 1.00 10^3/mcL AO Auto Heme SS Monocytes/100 WBC (Bld) 10.7 % Invalid Interpretation Code 1.7 - 13.0 % AO Auto Heme SS Neutrophil, Absolute 4.50 103/mcL Invalid Interpretation Code 2.85 - 6.16 10^3/mcL AO Auto Heme SS Neutrophils/100 WBC (Bld) 58.6 % Invalid Interpretation Code 37.0 - 80.0 % AO Auto Heme SS Phosphate [Mass/Vol] 5.0 mg/dL Invalid Interpretation Code 2.3 - 4.1 mg/dL AO ADM SS Platelet mean volume (Bld) [Entitic vol] 7.6 fL Invalid Interpretation Code 7.4 - 10.4 fL AO Auto Heme SS Platelets (Bld) [#/Vol] 268 103/mcL Invalid Interpretation Code 130 - 400 10^3/mcL AO Auto Heme SS Potassium [Moles/Vol] 4.6 mmol/L Invalid Interpretation Code 3.5 - 5.1 mmol/L AO ADM SS RBC (Bld) [#/Vol] 3.96 106/mcL Invalid Interpretation Code 4.04 - 6.13 10^6/mcL AO Auto Heme SS Sodium [Moles/Vol] 140 mmol/L Invalid Interpretation Code 136 - 145 mmol/L AO ADM SS Urea nitrogen [Mass/Vol] 39 mg/dL Invalid Interpretation Code 7 - 18 mg/dL AO ADM SS Urea nitrogen/Creatinine [Mass ratio] 27 ratio Invalid Interpretation Code 7 - 27 ratio AO ADM SS Uric Acid Lvl 5.6 mg/dL Invalid Interpretation Code 3.5 - 7.2 mg/dL AO ADM SS WBC (Bld) [#/Vol] 7.70 103/mcL Invalid Interpretation Code 4.60 - 10.80 10^3/mcL AO Auto Heme SS LABORATORYOrdered By: SYSTEM SYSTEM on 03-16-2021 Ferritin [Mass/Vol] 264.0 ng/mL Invalid Interpretation Code 26.0 - 388.0 ng/mL AH ADM SS GFR 60 ml/min/1.73sqm Invalid Interpretation Code AO Chemistry S GFR Non- 49 ml/min/1.73sqm Invalid Interpretation Code AO Chemistry S Parathyrin.intact [Mass/Vol] 58.4 pg/mL Invalid Interpretation Code 18.5 - 88.0 pg/mL AH ADM SS HAND 3V PA/LAT/OBL RIGHTon 1 06-08-2016 HAND 3V PA/LAT/OBL RIGHT Performed at [facility] APPROVED BY: Segun Hoff MD EXAM TITLE: THREE VIEWS OF THE RIGHT HAND DATE:04/08/2017 14:22 COMPARISON: None. CLINICAL INDICATION/HISTORY: Bite to third digit FINDINGS: No fracture or dislocation is seen. Normal osseous relationships are maintained. Joint spaces and carpal arcs are maintained. No suspicious osseous lesions. IMPRESSION: NEGATIVE HAND RADIOGRAPHS Normal [facility] Vital Signs Date Time Vital Sign Value Performing Clinician Yoanna colorado 12-30-2024 13:44-0400 Body height 182.[address] Ezekiel Caro DO Work Phone: [facility] 12-30-2024 13:44-0400 Body mass index (BMI)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 Start: 11-01-2027 Diabetes Screening Diabetes Screenin g [facility] Start: 08-19-2027 Diabetes Screening Diabetes Screenin g [facility] Start: 04-10-2027 Urine microalbumin profile [facility] Start: 01-02-2027 Diabetes Screening Diabetes Screenin g [facility] Start: 12-26-2025 Creatinine measurement Serum Creatin ine [facility] Start: 11-07-2025 Creatinine measurement Serum Creatin ine [facility] Start: 10-31-2025 Creatinine measurement Serum Creatin ine [facility] Start: 10-20-2025 BP Controlled (<130/80) BP Controlle d (<130/80) [facility] Start: 08-18-2025 Creatinine measurement Serum Creatin ine [facility] Start: 05-12-2025 End: 05-12-2025 Patient encounter procedure 05/12/2025 2:00 PM EST Office Visit Cardiology [address] [place] [phone] Елена Hwang MD [address] [place] [id number] 6 mo follow up Cardiology Comment on above: 6 mo follow up Start: 04-04-2025 BP Controlled (<130/80) BP Controlle d (<130/80) [facility] Start: 04-02-2025 End: 04-02-2025 Patient encounter procedure 04/02/2025 9:30 AM EST Office Visit Cardiology [address] [place] [address] Patricia Tong, REGULATORY LEAD.[employer]B PULLER [address] [place] [address] AFIB Cardiology Comment on above: AFIB Start: 04-02-2025 End: 04-02-2025 ambulatory 04/02/2025 9:00 AM EST Procedure Cardiology [address] [place] [address] AFIB Cardiology Comment on above: AFIB Start: 03-13-2025 DIABETES SCREEN DIABETES SCREEN [facility] Start: 03-13-2025 Diabetes Screening Diabetes Screenin g [facility] Start: 02-11-2025 DIABETES SCREEN DIABETES SCREEN [facility] Start: 01-21-2025 End: 01-21-2025 Nursing evaluation of patient and report 01/21/2025 1:00 PM EDT Nurse Visit Cardiology [address] [address] 2 month follow up Cardiology Comment on above: 2 month follow up Start: 01-12-2025 Influenza vaccination Influenza Vacc ine (#1) [facility] Start: 01-09-2025 DIABETES SCREEN DIABETES SCREEN [facility] Start: 01-02-2025 Creatinine measurement Serum Creatin ine [facility] Start: 01-02-2025 End: 01-02-2025 Nursing evaluation of patient and report 01/02/2025 10:30 AM EDT Nurse Visit Cardiology [address] [address] Dx: Visit for monitoring Tikosyn therapy [Z51.81, Z79.899] Cardiology Comment on above: Dx: Visit for monito ring Tikosyn therapy [Z51.81, Z79.899] Start: 12-30-2024 Comprehensive metabo lic 2000 panel - Serum or Plasma [facility] Start: 12-30-2024 Prostate specific an tigen measurement [facility] Start: 12-30-2024 [facility] Start: 12-29-2024 End: 12-29-2024 Patient encounter procedure 12/29/2024 7:30 AM EDT Appointment Radiology [address] [place] [address] US Liver Vascular with Spectral Doppler Vascular Radiology Comment on above: US Liver Vascular wi th Spectral Doppler Vascular Start: 11-10-2024 End: 11-10-2025 ECG COMPLETE ECG COMPLETE ECG Routine Atrial fibrillation, unspecified type (HCC) Expected: 11/10/2024, Expires: 11/10/2025 [facility] Work Phone: Comment on above: Expected: 11/10/2024 , Expires: 11/10/2025 Start: 11-07-2024 End: 11-07-2024 Admission to [facility] EP Lab Comment on above: COMPRE EP EVAL ABLTJ ATR FIB PULM VEIN ISOLATION Start: 11-07-2024 End: 11-07-2024 Ephys evl trnsptl tx atrial fib isolat pulm vein EP LAB Start: 11-07-2024 Subsequent hospital visit by physician [facility] EP Lab Comment on above: Paroxysmal atrial fi brillation (HCC) [I48.0] Start: 11-07-2024 End: 11-07-2024 Patient encounter procedure Admitting Comment on above: PVI ABLATION Start: 10-31-2024 End: 10-31-2024 ambulatory 10/31/2024 9:00 AM EDT Results Only [facility] [address] [place] [id number] PVI ABLATION [facility] Comment on above: PVI ABLATION Start: 10-20-2024 End: 10-20-2024 Patient encounter procedure 10/20/2024 8:30 AM EDT Office Visit Cardiology [address] [address] Joselyn Reyes APRN.RIB PULLER [address] [place], [place] [id number] follow up Cardiology Comment on above: follow up Start: 10-16-2024 End: 10-16-2024 Patient encounter procedure 10/16/2024 11:00 AM EDT Office Visit Cardiology [address] [address] Joselyn Reyes APRN.RIB PULLER [address] [place] [address] 6 month follow up Cardiology Comment on above: 6 month follow up Start: 10-15-2024 End: 10-15-2024 Patient encounter procedure 10/15/2024 2:30 PM EDT Office Visit Cardiology [address] [phone] Elayne Edwards APRN.RIB PULLER [address] [place], [place] [phone] 6 month follow up Cardiology Comment on above: 6 month follow up Start: 10-07-2024 End: 06-20-2025 Basic metabolic 2000 panel - Serum or Plasma BASIC METABOLIC PANEL Lab Routine Atrial fibrillation, unspecified type (HCC) Expected: 10/07/2024, Expires: 06/20/2025 [facility] Work Phone: Comment on above: Expected: 10/07/2024 , Expires: 06/20/2025 Start: 10-07-2024 End: 06-20-2025 CBC panel - Blood by Automated count COMPLETE BLOOD COUNT Lab Routine Atrial fibrillation, unspecified type (HCC) Expected: 10/07/2024, Expires: 06/20/2025 [facility] Comment on above: Expected: 10/07/2024 , Expires: 06/20/2025 Start: 10-07-2024 End: 06-20-2025 CONFIRM BLOOD TYPE CONFIRM BLOOD TYPE Blood Bank Routine Atrial fibrillation, unspecified type (HCC) Expected: 10/07/2024, Expires: 06/20/2025 [facility] Comment on above: Expected: 10/07/2024 , Expires: 06/20/2025 Start: 10-07-2024 End: 06-20-2025 TYPE AND SCREEN,30 DAY TYPE AND SCREEN,30 DAY Blood Bank Routine Atrial fibrillation, unspecified type (HCC) Expected: 10/07/2024, Expires: 06/20/2025 [facility] Comment on above: Expected: 10/07/2024 , Expires: 06/20/2025 Start: 10-03-2024 End: 10-03-2024 Patient encounter procedure 10/03/2024 2:30 PM EDT Office Visit Cardiology [address] [address] Elayne Edwards, REGULATORY LEAD.[employer] P[employer]ER [address] [place] [address] 6 month follow up Cardiology Comment on above: 6 month follow up Start: 08-22-2024 End: 08-22-2024 Patient encounter procedure 08/22/2024 1:00 PM EDT Appointment Radiology [address] [place] [address] (08/18: pt aware to get labs. STAT lab order placed -gs) NEEDS LABS 20G Enlarged thoracic aorta (HCC) [I77.89] Radiology Comment on above: (08/18: pt aware to ge t labs. STAT lab order placed -gs) NEEDS LABS 20G Enlarged thoracic aorta (HCC) [I77.89] Start: 07-22-2024 Covid-19 Vaccine () Covid-19 Vaccine () [facility] Start: 07-07-2024 End: 07-07-2024 Nursing evaluation of patient and report 07/07/2024 3:30 PM EST Nurse Visit Cardiology [address] [address] , Nurse Card [place] [address] [address] EKG for Tikosyn Cardiology Comment on above: EKG for Tikosyn Start: 07-07-2024 End: 07-07-2024 Patient encounter procedure 07/07/2024 2:40 PM EST Office Visit Cardiology [address] [address] Enlarged thoracic aorta (HCC) [I77.89] Cardiology Comment on above: Enlarged thoracic ao rta (HCC) [I77.89] Start: 06-18-2024 BP Controlled (<130/80) BP Controlle d (<130/80) [facility] Start: 05-14-2024 Advance Directive Discussion Advance Directive Discussion [facility] Start: 05-14-2024 Medicare Advantage A nnual Wellness Visit Medicare Advantage Annual Wellness Visit [facility] Start: 03-09-2024 BP Controlled (<130/80) BP Controlle d (<130/80) [facility] Start: 02-13-2024 End: 02-13-2024 Patient encounter procedure 02/13/2024 3:30 PM EDT Office Visit Cardiology [address] [address] Stefany Salas APRN.RIB PULLER [address] [phone] 6 MO FOLLOW UP Cardiology Comment on above: 6 MO FOLLOW UP Start: 02-12-2024 End: 02-12-2024 Patient encounter procedure 02/12/2024 2:00 PM EDT Office Visit Cardiology [address] [address] Stefany Salas APRN.RIB PULLER [address] [phone] 6 MO FOLLOW UP Cardiology Comment on above: 6 MO FOLLOW UP Start: 01-13-2024 Covid-19 Vaccine () Covid-19 Vaccine () [facility] Start: 01-13-2024 Influenza vaccination Influenza Vacc ine (#1) [facility] Start: 01-03-2024 End: 01-03-2024 Nursing evaluation of patient and report 01/03/2024 2:00 PM EDT Nurse Visit Cardiology [address] [address] Mc, Nurse Card [place] [address] [phone] Encounter for monitoring dofetilide therapy [Z51.81, Z79.899] Cardiology Comment on above: Encounter for monito ring dofetilide therapy [Z51.81, Z79.899] Start: 12-18-2023 End: 03-18-2024 CBC panel - Blood by Automated count COMPLETE BLOOD COUNT Lab Routine alf (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 anticoagulants Expected: 12/18/2023, Expires: 03/18/2024 [facility] Comment on above: Expected: 12/18/2023 , Expires: 03/18/2024 Start: 12-18-2023 End: 03-18-2024 Comprehensive metabolic 2000 panel - Serum or Plasma COMPREHENSIVE METABOLIC PANEL Lab Routine Encounter for monitoring dofetilide therapy Expected: 12/18/2023, Expires: 03/18/2024 [facility] Comment on above: Expected: 12/18/2023 , Expires: 03/18/2024 Start: 07-17-2023 Covid-19 Vaccine () Covid-19 Vaccine () [facility] Start: 06-01-2023 BP CONTROLLED (<130/80) BP CONTROLLE D (<130/80) [facility] Start: 05-14-2023 Advance Directive Discussion Advance Directive Discussion [facility] Start: 05-14-2023 Depression Assessment Depression Ass essment [facility] Start: 03-23-2023 End: 06-22-2023 25-hydroxyvitamin D3 [Mass/volume] in Serum or Plasma VITAMIN D 25 HYDROXY Lab Routine Other fatigue Vitamin D deficiency Expected: 03/23/2023, Expires: 06/22/2023 [facility] Work Phone: Comment on above: Expected: 03/23/2023 , Expires: 06/22/2023 Start: 03-23-2023 End: 06-22-2023 Ferritin [Mass/volume] in Serum or Plasma FERRITIN BLD Lab Routine Other fatigue Expected: 03/23/2023, Expires: 06/22/2023 [facility] Work Phone: Comment on above: Expected: 03/23/2023 , Expires: 06/22/2023 Start: 03-23-2023 End: 06-22-2023 Iron and Iron binding capacity panel - Serum or Plasma IRON + TIBC Lab Routine Other fatigue Expected: 03/23/2023, Expires: 06/22/2023 [facility] Work Phone: Comment on above: Expected: 03/23/2023 , Expires: 06/22/2023 Start: 03-23-2023 End: 06-22-2023 Lipid 1996 panel - Serum or Plasma LIPID PANEL BASIC Lab Routine Other fatigue Coronary artery disease involving [place] coronary artery of [place] heart without angina pectoris Expected: 03/23/2023, Expires: 06/22/2023 [facility] Work Phone: Comment on above: Expected: 03/23/2023 , Expires: 06/22/2023 Start: 03-23-2023 End: 02-09-2024 Magnesium [Mass/volume] in Serum or Plasma MAGNESIUM BLD Lab Routine Other fatigue Expected: 03/23/2023, Expires: 06/22/2023 [facility] Work Phone: Comment on above: Expected: 03/23/2023 , Expires: 06/22/2023 Start: 03-23-2023 End: 06-22-2023 Natriuretic peptide.B prohormone N-Terminal [Mass/volume] in Serum or Plasma NT PRO BNP Lab Routine Other fatigue Expected: 03/23/2023, Expires: 06/22/2023 [facility] Work Phone: Comment on above: Expected: 03/23/2023 , Expires: 06/22/2023 Start: 03-23-2023 End: 06-22-2023 Thyrotropin [Units/volume] in Serum or Plasma TSH BLD Lab Routine Other fatigue Expected: 03/23/2023, Expires: 06/22/2023 [facility] Work Phone: Comment on above: Expected: 03/23/2023 , Expires: 06/22/2023 Start: 03-23-2023 End: 06-22-2023 Thyroxine (T4) free [Mass/volume] in Serum or Plasma T4 FREE/FREE THYROX Lab Routine Other fatigue Expected: 03/23/2023, Expires: 06/22/2023 [facility] Work Phone: Comment on above: Expected: 03/23/2023 , Expires: 06/22/2023 Start: 03-23-2023 End: 06-22-2023 Triiodothyronine (T3) Free [Mass/volume] in Serum or Plasma T3 FREE BLD Lab Routine Other fatigue Expected: 03/23/2023, Expires: 06/22/2023 [facility] Work Phone: Comment on above: Expected: 03/23/2023 , Expires: 06/22/2023 Start: 03-23-2023 End: 06-22-2023 Triiodothyronine (T3).reverse [Mass/volume] in Serum or Plasma REVERSE T3 Lab Routine Other fatigue Expected: 03/23/2023, Expires: 06/22/2023 [facility] Work Phone: Comment on above: Expected: 03/23/2023 , Expires: 06/22/2023 Start: 03-13-2023 Creatinine measurement Serum Creatin ine [facility] Start: 03-13-2023 SERUM CREATININE SERUM CREATININE [facility] Start: 03-09-2023 End: 06-08-2023 25-hydroxyvitamin D3 [Mass/volume] in Serum or Plasma VITAMIN D 25 HYDROXY Lab Routine Vitamin D deficiency Expected: 03/09/2023, Expires: 06/08/2023 [facility] Work Phone: Comment on above: Expected: 03/09/2023 , Expires: 06/08/2023 Start: 03-09-2023 End: 06-08-2023 Cobalamin (Vitamin B12) [Mass/volume] in Serum or Plasma VITAMIN B12 BLOOD Lab Routine Vitamin B12 deficiency Expected: 03/09/2023, Expires: 06/08/2023 [facility] Work Phone: Comment on above: Expected: 03/09/2023 , Expires: 06/08/2023 Start: 03-09-2023 End: 06-08-2023 Ferritin [Mass/volume] in Serum or Plasma FERRITIN BLD Lab Routine Iron deficiency Expected: 03/09/2023, Expires: 06/08/2023 [facility] Work Phone: Comment on above: Expected: 03/09/2023 , Expires: 06/08/2023 Start: 03-09-2023 End: 06-08-2023 Iron and Iron binding capacity panel - Serum or Plasma IRON + TIBC Lab Routine Iron deficiency Expected: 03/09/2023, Expires: 06/08/2023 [facility] Work Phone: Comment on above: Expected: 03/09/2023 , Expires: 06/08/2023 Start: 03-09-2023 End: 06-08-2023 Lipid 1996 panel - Serum or Plasma LIPID PANEL BASIC Lab Routine Mixed hyperlipidemia Expected: 03/09/2023, Expires: 06/08/2023 [facility] Work Phone: Comment on above: Expected: 03/09/2023 , Expires: 06/08/2023 Start: 03-09-2023 End: 06-08-2023 Magnesium [Mass/volume] in Serum or Plasma MAGNESIUM BLD Lab Routine Other fatigue Expected: 03/09/2023, Expires: 06/08/2023 [facility] Work Phone: Comment on above: Expected: 03/09/2023 , Expires: 06/08/2023 Start: 03-09-2023 End: 06-08-2023 Natriuretic peptide.B prohormone N-Terminal [Mass/volume] in Serum or Plasma NT PRO BNP Lab Routine Other fatigue Expected: 03/09/2023, Expires: 06/08/2023 [facility] Work Phone: Comment on above: Expected: 03/09/2023 , Expires: 06/08/2023 Start: 03-09-2023 End: 06-08-2023 Thyrotropin [Units/volume] in Serum or Plasma TSH BLD Lab Routine Other fatigue Expected: 03/09/2023, Expires: 06/08/2023 [facility] Work Phone: Comment on above: Expected: 03/09/2023 , Expires: 06/08/2023 Start: 03-09-2023 End: 06-08-2023 Thyroxine (T4) free [Mass/volume] in Serum or Plasma T4 FREE/FREE THYROX Lab Routine Other fatigue Expected: 03/09/2023, Expires: 06/08/2023 [facility] Work Phone: Comment on above: Expected: 03/09/2023 , Expires: 06/08/2023 Start: 03-09-2023 End: 06-08-2023 Triiodothyronine (T3) Free [Mass/volume] in Serum or Plasma T3 FREE BLD Lab Routine Other fatigue Expected: 03/09/2023, Expires: 06/08/2023 [facility] Work Phone: Comment on above: Expected: 03/09/2023 , Expires: 06/08/2023 Start: 03-09-2023 End: 06-08-2023 Triiodothyronine (T3).reverse [Mass/volume] in Serum or Plasma REVERSE T3 Lab Routine Other fatigue Expected: 03/09/2023, Expires: 06/08/2023 [facility] Work Phone: Comment on above: Expected: 03/09/2023 , Expires: 06/08/2023 Start: 02-15-2023 BP CONTROLLED (<130/80) BP CONTROLLE D (<130/80) [facility] Start: 02-11-2023 HEMOGLOBIN/HEMATOCRIT HEMOGLOBIN/HEM ATOCRIT [facility] Start: 02-11-2023 SERUM CREATININE SERUM CREATININE [facility] Start: 01-20-2023 BP CONTROLLED (<130/80) BP CONTROLLE D (<130/80) [facility] Start: 01-13-2023 HEMOGLOBIN/HEMATOCRIT HEMOGLOBIN/HEM [facility] Start: 01-13-2023 SERUM CREATININE SERUM CREATININE [facility] Start: 01-12-2023 Covid-19 Vaccine (2022- season) Covid-19 Vaccine ( season) [facility] Start: 01-12-2023 Influenza vaccination C [facility] Start: 06-07-2022 COVID-19 VACCINE (5 - Moderna series) COVID-19 VACCINE (5 - Moderna series) [facility] Start: 05-14-2022 ADVANCE DIRECTIVE DISCUSSION ADVANCE DIRECTIVE DISCUSSION [facility] Start: 05-14-2022 DEPRESSION ASSESSMENT DEPRESSION ASS ESSMENT [facility] Start: 01-12-2022 Influenza vaccination INFLUENZA (#1) [facility] Start: 05-16-2021 COVID-19 VACCINE (4 - Booster for Moderna series) COVID-19 VACCINE (4 - Booster for Moderna series) [facility] Start: 05-14-2021 ADVANCE DIRECTIVE DISCUSSION ADVANCE DIRECTIVE DISCUSSION [facility] Start: 05-14-2021 DEPRESSION ASSESSMENT DEPRESSION ASS ESSMENT [facility] Start: 03-11-2021 COVID-19 VACCINE (4 - Booster for Moderna series) COVID-19 VACCINE (4 - Booster for Moderna series) [facility] Start: 2009 RSV Vaccine (1 - 1-d ose 60+ series) RSV Vaccine (1 - 1-dose 60+ series) [facility] Start: 2009 RSV Vaccine (1 - Ris k 60-74 years 1-dose series) RSV Vaccine (1 - Risk 60-74 years 1-dose series) [facility] Start: 1999 SHINGRIX VACCINE (1 of 2) PAUL GRIX VACCINE (1 of 2) [facility] Start: 1994 COLOGUARD (FIT-DNA) COLOGUARD (FIT-D NA) [facility] Start: 1994 Colonoscopy COLONOSCOPY [facility] Start: 1994 COLORECTAL CANCER SCREENING COLORECTAL CANCER SCREENING [facility] Start: [address] COLONOGRAPHY [facility] Start: 1994 FECAL OCCULT BLOOD FECAL OCCULT BLOO D [facility] Start: 1994 Screening for malign ant neoplasm of colon [facility] Start: 1994 SIGMOIDOSCOPY SIGMOIDOSCOPY [facility] Start: 1984 Lipid 1996 panel - S lauren or Plasma Lipid Screening [facility] Start: 1984 LIPID SCREEN LIPID SCREEN [facility] Start: 1979 Zoledronic acid therapy ALPHA- 1 ANTITRYPSIN DEFICIENCY SCREENING [facility] Start: 1967 ANNUAL PCP TEAM CRUSH[employer] [place] DISEASE VISIT ANNUAL PCP TEAM CHRONIC DISEASE VISIT [facility] Start: 1967 Anxiety Screening Anxiety Screening [facility] Start: 1967 BP Controlled (<130/80) BP Controlle d (<130/80) [facility] Start: 1967 Depression Screening Depression Scre ening [facility] Start: 1967 HEPATITIS C SCREENING HEPATITIS C SC [facility] Start: 1967 Hepatitis C screening Hepatitis C [facility] Start: 1967 SPIROMETRY SPIROMETRY [facility] Start: 1961 Adult depression scr [facility] assessment DEPRESSION SCREENING [facility] Start: 1955 PNEUMOCOCCAL: 65+ (1 - PCV) PNEUMOCOCCAL: 65+ (1 - PCV) [facility] Alanine aminotransfe rase [Enzymatic activity/volume] in Serum or Plasma [facility] Albumin [Mass/volume ] in Serum or Plasma [facility] Alkaline phosphatase [Enzymatic activity/volume] in Serum or Plasma [facility] Anion gap in Serum o r Plasma [facility] End: 05-05-2025 Basic metabolic 2000 panel - Serum or Plasma BASIC METABOLIC PANEL Lab Routine Paroxysmal atrial fibrillation (HCC) Every 3 months for 4 Occurrences starting 05/05/2024 until 05/05/2025 [facility] Comment on above: Every 3 months for 4 Occurrences starting 05/05/2024 until 05/05/2025 Bilirubin, total measurement [facility] BUN/Creatinine ratio [facility] Calcium [Mass/volume ] in Serum or Plasma [facility] Carbon dioxide, tota l [Moles/volume] in Central venous blood [facility] CBC W Auto Different ial panel - Blood [facility] Creatinine [Mass/vol ume] in Serum or Plasma [facility] End: 02-15-2023 ECG COMPLETE ECG COMPLETE ECG Routine Paroxysmal atrial fibrillation (HCC) 1 Occurrences starting 02/15/2022 until 02/15/2023 [facility] Work Phone: Comment on above: 1 Occurrences starti ng 02/15/2022 until 02/15/2023 ECG COMPLETE ECG COMPLETE ECG 03/09/2023 1:54 PM EDT [facility] ECG COMPLETE ECG COMPLETE ECG Routine Coronary artery disease involving [place] coronary artery of [place] heart without angina pectoris Ordered: 04/11/2023 [facility] Work Phone: Comment on above: Ordered: 04/11/2023 End: 12-17-2024 ECG COMPLETE ECG COMPLETE ECG Routine Encounter for monitoring dofetilide therapy 1 Occurrences starting 12/18/2023 until 12/17/2024 [facility] Work Phone: Comment on above: 1 Occurrences starti ng 12/18/2023 until 12/17/2024 ECG COMPLETE ECG COMPLETE ECG 01/03/2024 1:19 PM EDT [facility] ECG COMPLETE ECG COMPLETE ECG 04/04/2024 2:29 PM EST [facility] End: 05-05-2025 ECG COMPLETE ECG COMPLETE ECG Routine Paroxysmal atrial fibrillation (HCC) Every 3 months for 4 Occurrences starting 05/05/2024 until 05/05/2025 [facility] Work Phone: Comment on above: Every 3 months for 4 Occurrences starting 05/05/2024 until 05/05/2025 End: 12-26-2025 ECG COMPLETE ECG COMPLETE ECG Routine Paroxysmal atrial fibrillation (HCC) 1 Occurrences starting 12/26/2024 until 12/26/2025 [facility] Work Phone: Comment on above: 1 Occurrences starti ng 12/26/2024 until 12/26/2025 End: 03-09-2024 Echocardiography ECHO Cardiology Routine SOB (shortness of breath) 1 Occurrences starting 03/09/2023 until 03/09/2024 [facility] Work Phone: Comment on above: 1 Occurrences starti ng 03/09/2023 until 03/09/2024 End: 04-04-2025 Echocardiography ECHO Cardiology Routine Enlarged thoracic aorta (HCC) 1 Occurrences starting 04/04/2024 until 04/04/2025 [facility] Work Phone: Comment on above: 1 Occurrences starti ng 04/04/2024 until 04/04/2025 Glucose [Mass/volume ] in Serum or Plasma [facility] Measurement of renal function [facility] OUTSIDE VENDOR CARDI AC OUTPATIENT EXTENDED RHYTHM RECORDING (WITHOUT TELEMETRY) OUTSIDE VENDOR CARDIAC OUTPATIENT EXTENDED RHYTHM RECORDING (WITHOUT TELEMETRY) Holter Routine Paroxysmal atrial fibrillation (HCC) Ordered: 04/04/2024 [facility] Comment on above: Ordered: 04/04/2024 Potassium measurement [facility] Serum chloride measurement [facility] Sodium measurement [facility] Total protein measurement [facility] Urea nitrogen [Mass/volume] in Serum or Plasma [facility] US Abdomen limited [facility] Immunizations Immunization Date Immunization Notes Care Provider Berenice gusman 03-19-2024 tetanus toxoid, redu tequila diphtheria toxoid, and acellular pertussis vaccine, adsorbed Elayne Edwards REGULATORY LEAD.RIB PULLER Work Phone: [facility] 01-23-2024 influenza virus vacc ine, unspecified formulation Елена Hwang MD Work Phone: [facility] 03-18-2023 influenza virus vacc ine, unspecified formulation Aston Pillai DO Work Phone: [facility] 02-02-2022 influenza virus vacc ine, unspecified formulation Joselyn Arturo MARKSRIB PULLER Work Phone: [facility] 01-14-2021 influenza virus vacc ine, unspecified formulation EZEKIEL CARO DO [facility] 01-14-2021 SARS-CoV-2 (COVID-19 ) mRNA-1273 vaccine EZEKIEL CARO DO [facility] 11-01-2020 SARS-CoV-2 (COVID-19 ) mRNA-1273 vaccine DEYSI RODRIGUEZ MD [facility] Comment on above: Result Comment: [facility] 10-05-2020 SARS-CoV-2 (COVID-19 ) mRNA-1273 vaccine DEYSI RODRIGUEZ MD [facility] 01-09-2020 influenza virus vacc ine, unspecified formulation DEYSI RODRIGUEZ MD [facility] Comment on above: Result Comment: [facility] 07-04-2019 hepatitis A vaccine, adult dosage DEYSI RODRIGUEZ MD [facility] Comment on above: Result Comment: cherelle elizabeth [facility] 12-21-2018 hepatitis A vaccine, adult dosage DEYSI RODRIGUEZ MD [facility] 12-21-2018 influenza virus vacc ine, unspecified formulation DEYSI RODRIGUEZ MD [facility] Comment on above: Result Comment: [facility] 12-11-2017 zoster vaccine recombinant EZEKIEL CARO DO [facility] 08-22-2017 zoster vaccine recombinant EZEKIEL CARO DO [facility] 08-12-2017 zoster vaccine, live MARILIA RODRIGUEZ MD [facility] 04-10-2017 tetanus toxoid, redu tequila diphtheria toxoid, and acellular pertussis vaccine, adsorbed EZEKIEL VANIA DO [facility] 05-03-2016 pneumococcal conjuga te vaccine, 13 valent EZEKIEL CARO DO [facility] 04-13-2016 pneumococcal conjuga te vaccine, 13 valent DEYSI RODRIGUEZ MD [facility] 04-12-2016 pneumococcal conjuga te vaccine, 13 valent EZEKIEL CARO DO [facility] 04-21-2015 pneumococcal polysaccharide vaccine, 23 valent EZEKIEL CARO DO [facility] 04-13-2015 pneumococcal polysaccharide vaccine, 23 valent DEYSI RODRIGUEZ MD [facility] 04-12-2015 pneumococcal polysaccharide vaccine, 23 valent EZEKIEL CARO DO [facility] 05-14-2005 pneumococcal polysaccharide vaccine, 23 valent EZEKIEL CARO DO [facility] Payers Date Payer Category Payer Private Health Insurance [id number] 2024 Self-pay [id number] 2021 Medicare UHC AAR MEDICAR E [facility] MEDICARE HMO [id number] 2021-Present [phone] [address] [address] [place] [address] HMO [id number] 2021 Medicare (Managed Care) [facility] MEDICARE HMO [id number] 2021 Unknown [id number] 2014 Medicare [id number] 1950 Unknown [id number] [id number]. 2.7 1950 Unknown [id number] 2.160.1.784562.3.579. 2.627 1950 Unknown [id number] 2.16840.1.328436.3.579. 2.627 1950 Unknown [id number] 2.160.1.398918.3.579. 2.627 1950 Unknown [id number] 2.16.840.1.307059.3.579. 2.627 1950 Unknown [id number] 2.16.840.1.632866.3.579. 2.627 Unknown [id number] 2.16.840.1.849303.3.579. 2.462 Unknown [id number] 2.16.840.1.190294.3.579. 2.462 Unknown [id number] 2.16.840.1.241859.3.579. 2.462 Unknown [id number] 2.16.840.1.344574.3.579. 2.462 Unknown [id number] 2.16.840.1.709388.3.579. 2.462 Unknown [id number] 2.16.840.1.558271.3.579. 2.462 Unknown [id number] 2.16.840.1.162225.3.579. 2.462 Unknown [id number] 2.16.840.1.926066.3.579. 2.462 Unknown [id number] 2.16.840.1.923633.3.579. 2.462 Unknown [id number] 2.16.840.1.373794.3.579. 2.462 Unknown [id number] 2.16.840.1.414129.3.579. 2.462 Unknown [id number] 2.16.840.1.321780.3.579. 2.462 Social History Date Type Detail Facility Start: 11-22-2018 End: 01-20-2022 Never smoked tobacco (finding) [facility] Comment on above: No smoke exposure Start: 1950 Sex Assigned At Male A [facility] Start: 07-26-2019 End: 07-26-2019 Tobacco smoking status VAIS Unknown if ever smoked [facility] Start: 01-20-2022 Tobacco use and exposure Smoke less tobacco non-user [facility] Start: 01-20-2022 End: 06-01-2022 Alcohol intake Current drinker of alcohol (finding) [facility] Start: 01-20-2022 End: 01-18-2023 Alcohol intake [facility] Start: 01-08-2022 History SDOH Financial 3 [facility] Start: 01-08-2022 End: 02-09-2022 History SDOH Food Worry 1 [facility] Start: 01-08-2022 End: 02-09-2022 History SDOH Transport Med 2 [facility] Start: 1950 Sex Assigned At Not on file C [facility] Start: 01-07-2022 End: 02-07-2022 Exposure to SARS-CoV-2 (event) Unable to assess [facility] Start: 02-09-2022 History SDOH Financial 4 [facility] Start: 01-29-2022 End: 03-13-2022 Exposure to SARS-CoV-2 (event) Not sure [facility] Work Phone: Start: 06-01-2022 Alcohol Comment wineOnce in a while [facility] Start: 06-01-2022 End: 01-18-2023 Tobacco use panel [facility] How hard is it for y ou to pay for the very basics like food, housing, medical care, and heating Not very hard [facility] (I/We) worried kana er (my/our) food would run out before (I/we) got money to buy more. Sometimes true [facility] Start: 04-14-2012 In the past 12 month s, has lack of transportation kept you from medical appointments or from getting medications? No [facility] In the past 12 month s, was there a time when you were not able to pay the mortgage or rent on time? No [facility] Start: 03-09-2023 End: 11-20-2024 Alcohol intake Ex-drinker (finding) [facility] Start: 01-06-2020 End: 07-30-2024 Sex Male (finding) [facility] Sexual Orientation [facility] [place] Goals Date Patient Goal Desired Activity /State Personal health goal Functional Status Date Assessment Result Facility 12-26-2024 Are you deaf, or do you have serious difficulty hearing No 12/26/2024 12:58 PM JOSET Rios Hernandez RN No [facility] 12-26-2024 Are you blind, or do you have serious difficulty seeing, even when wearing glasses No 12/26/2024 12:58 PM JOSET Rios Hernandez RN No [facility] 12-26-2024 Do you have serious difficulty walking or climbing stairs No 12/26/2024 12:58 PM EDT Rios Hernandez RN No [facility] 12-26-2024 Do you have difficul ty dressing or bathing No 12/26/2024 12:58 PM EDT Rios Hernandez RN No [facility] 12-26-2024 Because of a physica l, mental, or emotional condition, do you have difficulty doing errands alone such as visiting a physician's office or shopping No 12/26/2024 12:58 PM EDT Rios Hernandez RN No [facility] 11-07-2024 Are you deaf, or do you have serious difficulty hearing No 11/07/2024 6:45 PM EDT Roz Dotson RN No [facility] 11-07-2024 Are you blind, or do you have serious difficulty seeing, even when wearing glasses No 11/07/2024 6:45 PM EDT Roz Dotson RN No [facility] 11-07-2024 Do you have serious difficulty walking or climbing stairs No 11/07/2024 6:45 PM EDT Roz Dotson RN No [facility] 11-07-2024 Do you have difficul ty dressing or bathing No 11/07/2024 6:45 PM EDT Roz Dotson RN No [facility] 11-07-2024 Because of a physica l, mental, or emotional condition, do you have difficulty doing errands alone such as visiting a physician's office or shopping No 11/07/2024 6:45 PM EDT Roz Dotson RN No [facility] 02-11-2022 Are you deaf, or do you have serious difficulty hearing No 02/11/2022 3:35 PM EDT Maribel Hamm RN No [facility] 02-11-2022 Are you blind, or do you have serious difficulty seeing, even when wearing glasses No 02/11/2022 3:35 PM EDT Maribel Hamm, UMAIR No [facility] 02-11-2022 Do you have serious difficulty walking or climbing stairs No 02/11/2022 3:35 PM EDT Maribel Hamm, UMAIR No [facility] 02-11-2022 Do you have difficul ty dressing or bathing No 02/11/2022 3:35 PM EDT Maribel Hamm, UMAIR No [facility] 02-11-2022 Because of a physica l, mental, or emotional condition, do you have difficulty doing errands alone such as visiting a physician's office or shopping No 02/11/2022 3:35 PM EDT Maribel Hamm, UMAIR No [facility] Mental Status Date Assessment Result Facility 12-26-2024 Because of a physica l, mental, or emotional condition, do you have serious difficulty concentrating, remembering, or making decisions No 12/26/2024 12:58 PM EDT Riso Hernandez RN No [facility] 11-07-2024 Because of a physica l, mental, or emotional condition, do you have serious difficulty concentrating, remembering, or making decisions No 11/07/2024 6:45 PM EDT Roz Dotson RN No [facility] 02-11-2022 Because of a physica l, mental, or emotional condition, do you have serious difficulty concentrating, remembering, or making decisions No 02/11/2022 3:35 PM EDT Maribel Hamm, UMAIR No [facility] Clinical Notes 09-18-2016 to 01-01-2025 Telephone Encounter - Evelyn Gaming - 01/01/2025 11:18 AM EDTTelephone Encounter - Evelyn Gaming - 01/01/2025 11:18 AM EDTTelephone Encounter - Aden Yuan LPN - 01/01/2025 11:15 AM EDT Note Date & Type Note Facility 01-01-2025 Telephone encounter Note Scan on 01/01/2025 11:18 AM by Evelyn Gaming: [facility] 01-01-2025 Miscellaneous Notes Scan on 01/01/2025 11:18 AM by Evelyn Gaming: [facility] Form signed, return faxed, and fax confirmation received. Placed in PSS basket for scanning. [facility] received via fax. [facility] 11/20/24 Arturo Billingsley Agricultural Research Engineer MD visit 06/01/22 Dr Pillai Form placed on desk of Cristian Reyes CNP for review. documented in this encounter [facility] 01-01-2025 Telephone encounter Note Form signed, return faxed, and fax confirmation received. Placed in PSS basket for scanning. [facility] 12-31-2024 Telephone encounter Note [facility] received via fax. [facility] 11/20/24 Arturo Billingsley Agricultural Research Engineer visit 06/01/22 Dr Pillai Form placed on desk of Cristian Reyes CNP for review. [facility] 12-29-2024 Telephone encounter Note Called patient to schedule procedure as requested below, patient stated no ablation, his Tikosyn is working. Explained about Dr. Anaya recommending to get scheduled for ablation tentatively per office notes, patient declined to schedule procedure at this time. No procedure scheduled. Maribel Franco RN, RN [facility] 12-29-2024 Telephone encounter Note ----- Message from Dio Anaya MD sent at 12/19/2024 11:26 AM EDT ----- BB Can you reach out. 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 On low dose Tikosyn. Would rec admission to [facility] to attempt to up-titrate Tikosyn to 250 mcg BId. Tentatively hold a spot for a redo PVI / atypical AFL RFA in the event that increased Tikosyn fails. Lucinda Please look for a sooner spot for a redo PVI / atypical AFL RFA GA CARTO / farapulse. hold AM Eliquis. thanks bb [facility] 12-29-2024 Miscellaneous Notes Called patient to schedule procedure as requested below, patient stated no ablation, his Tikosyn is working. Explained about Dr. Anaya recommending to get scheduled for ablation tentatively per office notes, patient declined to schedule procedure at this time. No procedure scheduled. Maribel Franco RN, RN ----- Message from Dio Anaya MD sent at 12/19/2024 11:26 AM EDT ----- BB Can you reach out. 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 On low dose Tikosyn. Would rec admission to [facility] to attempt to up-titrate Tikosyn to 250 mcg BId. Tentatively hold a spot for a redo PVI / atypical AFL RFA in the event that increased Tikosyn fails. Lucinda Please look for a sooner spot for a redo PVI / atypical AFL RFA GA CARTO / farapulse. hold AM Eliconcepción. thanks bb documented in this encounter [facility] 12-29-2024 Telephone encounter Note Pt admitted for Tikosyn. D/c from hospital 12/26/2024 Per d/c instrusction pt to have EKG 1 week after d/c. Please scheduled pt for EKG on 01/02/2025. [facility] 12-29-2024 Miscellaneous Notes Pt admitted for Tikosyn. D/c from hospital 12/26/2024 Per d/c instrusction pt to have EKG 1 week after d/c. Please scheduled pt for EKG on 01/02/2025. documented in this encounter [facility] 12-29-2024 History of Present illness Narrative Radiology Service Progress Note PATIENT NAME: Anya [...] PATIENT PRESENTS WITH AN IMPLANTABLE OR ATTACHED EXCEPTIONAL STUDENT EDUCATION AIDE: No RADIOLOGY DEPARTMENT: Ultrasound PERIPHERAL IV DATA: Not applicable SIGNED BY: Kandy Mays RDMS December 29, 2024 8:39 AM documented in this encounter [facility] 12-29-2024 Note HNO ID: [id number] Author: KANDY MAYS RDMS Service: Radiology Author [...] PATIENT PRESENTS WITH AN IMPLANTABLE OR ATTACHED EXCEPTIONAL STUDENT EDUCATION AIDE: No RADIOLOGY DEPARTMENT: Ultrasound PERIPHERAL IV DATA: Not applicable SIGNED BY: Kandy Mays RDMS December 29, 2024 8:39 AM [facility] 12-26-2024 Note HNO ID: [id number] Author: GARCÍA NIXON RN Service: Care Management [...] have been identified please contact the Transitional Financial Compliance Officer or Advertising Strategist listed in the Care Teams or contact the Care Management Department at [phone]. Care Management will continue to monitor. Please see Treatment Team for Care Management Weekend/Holiday coverage. SIGNATURE: García Nixon RN PATIENT NAME: Anya Kamara DATE: December 26, 2024 TIME: 10:40 AM [facility] 12-25-2024 Note HNO ID: [id number] Author: VIOLETTE RIVERA APRN.CNP Service: Cardiovascular Medicine Author Type: Nurse Practitioner Type: Progress Notes Filed: 12/25/2024 17:39 Note Text: [facility] CARDI[facility]ASCULAR [facility]ICINE PROGRESS NOTE SERVICE DATE: 12/25/2024 SERVICE TIME: 1056 PRIMARY SERVICE: Electrophysiology, i HOSPITAL DAY: # 2 SB 40s-50s on [...] 01/10/2022 COPD with acute exacerbation (HCC) 01/07/2022 alf current use of anticoagulant 01/07/2022 BRENDA on CPAP 01/07/2022 Primary hypertension Mixed (more content not included)... [facility] 12-24-2024 Note HNO ID: [id number] Author: VIOLETTE RIVERA APRN.RIB PULLER Service: Cardiovascular Medicine Author Type: Nurse Practitioner [...] 01/10/2022 COPD with acute exacerbation (HCC) 01/07/2022 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 current use of anticoagulant 01/07/2022 BRENDA on CPAP 01/07/2022 Primary hypertension Mixed hyperlipidemia Malignant neoplasm of prostate (HCC) 09/12/2007 For communication after 5 pm on weekdays and after 12 pm on weekends, please page the following: - Clinical Cardiology patients on all floors: page [phone] - Other Cardiology patients on J5 and J6: page [phone] - Other Cardiology patients on J7 and J8: page [phone] SIGNATURE: Violette Rivera APRN.CNP PATIENT NAME: Anya Kamara DATE: December 24, 2024 TIME: 12:12 PM PAGER/CONTACT #: [id number] [facility] 12-23-2024 Note HNO ID: [id number] Author: GARCÍA NIXON RN Service: Care Management [...] DATE: December 23, 2024 TIME: 1:06 PM [facility] 12-22-2024 Note HNO ID: [id number] Author: MELANIE PULIDO CPhT Service: Pharmacy Author Type: Supervisor [place] Type: Plan of Care Filed: 12/22/2024 17:39 Note Text: Insurance investigation completed Patient has active prescription insurance: Yes - Patient's insurance is in-network with [facility] Insurance loaded into [place]: Already loaded Test claim was completed to verify insurance is active: Successful Is patient eligible for [facility]? No Reason for test claim: Dofetilide [...] pharmacy locations, this is the cost at [facility]) If prior authorization is required, please send medication to designated pharmacy 24-48 hours in advance. Any questions, please reach out the medication access consultant. Thank you. (Prices may vary at different pharmacy locations, this is the cost at [facility] on 12/22/2024). Melanie Pulido CPhT Medication Vacuum Kettle Cook [phone] [facility] 12-18-2024 Radiology Diagnostic study note [facility] Imaging Services [address] [place] [address] Chest, Abd, Pel w/Contrast MR#: [id number] Acct: [id number] Name: ANYA KAMARA Rep #: [id number] 1 : 1950 M 74 From: Nely Ely MD PCP: Dr. Ezekiel Caro, DO Status: REG CLI Study:CT Chest, Abd, Pel w/Contrast Date of E xam: 12/18/24 Exam# [id number] Ordering Dr: Zachary Thayer DRAWING SUPERVISOR-Staci PROCEDURE: CT CHEST, ABD, PEL W/CONTRAST 12/18/2024 REASON FOR EXAM: BILATERAL HEPATIC LOBE MASSES, HX OF PROSTATE CANC TECHNIQUE: Chest, abdomen and pelvis CT with intravenous contrast. Coronal and Sagittal reconstruction series were provided. One or more dose reduction techniques were used (e.g., Automated exposure control, adjustment of the mA and/or kV according to patient size, use of iterative reconstruction technique. PATIENT PREPARATION: Per protocol ORAL CONTRAST TYPE: None. AMOUNT: mL CONTRAST: Isovue 370 VOLUME: 99mL Gauge IV RADIATION DOSE SUMMARY: CTDlvol: 65 mGy DLP: 2264 mGycm COMPARISON: Abdominopelvic CT 09/23/2019 FINDINGS: Unremarkable base of neck and axilla. Normal esophagus. Normal heart size. Noacute vascular pathology. Dilated ascending aorta, 4.7 cm maximum cross-section. Thoracic spine degeneration. Status post proximal left humerus injury/repair. Central airways are patent. There are bilateral numerous, approximately 20, noncalcified lung nodules measuring up to 1.5 cm on the left, series 6, image 10 and 0.9 cm on the right, series 6, image 96. Interval development of extensive and partially confluence liver metastatic disease. Largest lesion, series 3, image 28, centered in the right lobe, measures approximately 7.9 x 17.7 cm. There is thrombus in the portal confluence, series 3, image 44, which could possibly represent tumor, rather than bland, thrombus. Unremarkable gallbladder. Normal pancreas, spleen, adrenal glands, kidneys. Nohydronephrosis. There is a suspected bladder mass, series 605, image 92, measuring about 1.2 cm, off the right posterior bladder wall.. The prostate gland is small or has been removed, advise correlation.. No retroperitoneal or pelvic adenopathy. No free air. Nondistended bowel. No acute large bowel findings. No signs of appendicitis. Lumbar spine degeneration. No acute abdominal wall findings. There is pelvic floor laxity. CT/CT Chest, Abd, Pel w/Contrast IMPRESSION: Extensive lung metastatic disease. Extensive liver metastatic disease. 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 Suspect bladder tumor. Consider cystoscopy. Reading Location: [place] [address] CC: PATTI Thayer; Dr. Ezekiel Caro, DO ~ Hassock Maker: Signed [facility] 12-08-2024 Telephone encounter Note Abnormal Zio- patch was worn from 11/16/24 thru 11/28/24 61% [place] of A-fib At certain points there was a rapid heart rate @ 152 BPM (lasting 60-seconds). Located on strip 9, pg 15 36 Runs of SVT 2 Pauses- longest lasting 3.1 seconds Already posted Perla Dupont [facility] 12-08-2024 Miscellaneous Notes Abnormal Zio- patch was worn from 11/16/24 thru 11/28/24 61% [place] of A-fib At certain points there was a rapid heart rate @ 152 BPM (lasting 60-seconds). Located on strip 9, pg 15 36 Runs of SVT 2 Pauses- longest lasting 3.1 seconds Already posted Perla Dupont documented in this encounter [facility] 12-02-[address] [facility] 11/20/24 Arturo 05/12/25 Dolester [facility] 12-02-[address] [facility] 11/20/24 Arturo 05/12/25 Dolester documented in this encounter [facility] 11-25-2024 Radiology Diagnostic study note [facility] Imaging Services [address] [place] [address] Abdomen Limited MR#: [id number] Acct: [id number] Name: ANYA KAMARA Rep #: [id number] 1 : 1950 M 74 From: Red Hollingsworth MD PCP: Dr. Ezekiel Caro, DO Status: REG CLI Study:Abdomen Limited Date of Exam: 11/11 10/05 Exam# [id number] Ordering Dr: Zachary Thayer DRAWING SUPERVISOR-C PROCEDURE: ABDOMEN LIMITED 11/25/2024 REASON FOR EXAM: ABDOMINAL PAIN, ELEVATED ALP TECHNIQUE: ABDOMEN LIMITED COMPARISON: None FINDINGS: Liver: The liver has multiple heterogeneous lesions with the appearance of diffuse metastatic disease with a largest in the left hepatic lobe measuring a proximally 8 cm and in the right hepatic lobe measuringapproximately 8 cm x 6 cm. Gallbladder: There is no gallbladder wall thickening or stone. Common bile duct: 4 mm . Pancreas: Unremarkable Kidneys: The right kidney measures 11.4 cm. Peritoneal Findings: There is no free fluid. US/Abdomen Limited IMPRESSION: The liver has multiple heterogeneous lesions with the appearance of diffuse metastatic disease with a largest in the left hepatic lobe measuring a proximally 8 cm and in the right hepatic lobe measuring approximately 8 cm x [address] correlation is recommended. Critical results were discussed with Dr Thayer by Edel at the time of dictation. [facility] CC: PATTI Thayer; Dr. Ezekiel Caro, DO ~ Hassock Maker: Signed [facility] 11-21-2024 Telephone encounter Note Pt called in with update on HR for Cristian Reyes APRN. RIB PULLER HR this AM ranged from 101-133 over [...] will use the data collected so far. [facility] 11-21-2024 Miscellaneous Notes Pt called in with update on HR for Cristian Reyes APRN. RIB PULLER HR this AM ranged from 101-133 over [...] will use the data collected so far. documented in this encounter [facility] 11-20-2024 Instructions Joselyn Reyes APRN.[place] - 11/20/2024 2:11 PM EDT We discussed your recent ablation and current [...] glycinate, citrate, or threonate. - Consider avoiding amof-wkt-eqvkasw sleep aids like Relaxium if they are not effective for you. We discussed your vitamin intake: - Continue taking Vitamin D 2,000 IU daily and Sedan-3 supplements together for better absorption. Missing a [...] about your care plan. Joselyn Reyes APRN.CNP documented in this encounter [facility] 11-20-2024 Note HNO ID: [id number] Author: JOSELYN REYES APRN.CNP Service: ? Author Type: Nurse Practitioner Type: Progress Notes Filed: 11/20/2024 14:25 Note Text: [facility] [place] [facility] Department of Cardiovascular Medicine SECTION [...] That was done on November 07 at [facility]. The patient is a 74-year-old male with [...] missed heartbeats. He is currently wearing a production department supervisor, which was applied on the and is [...] expensive. He has not yet consulted a soda clerk. He also reports stomach pain, which he [...] (FLOMAX) 0.4 mg ORAL Cp24 Take 1 (more content not included)... [facility] 11-20-2024 History of Present illness Narrative Images from the original note were not included. [facility] Department of Cardiovascular Medicine SECTION [...] That was done on November 07 at [facility]. The patient is a 74-year-old male with [...] missed heartbeats. He is currently wearing a production department supervisor, which was applied on the and is [...] expensive. He has not yet consulted a soda clerk. He also reports stomach pain, which he [...] kg (255 lb 11.7 oz) BMI 34.68 kg/m General: Alert & oriented, no acute distress. Skin: Normal. HEENT: [...] obtained in 12 months --END OF FINDING-- Hassock Maker: ABEBE Transcribe Date/Time: Aug 22 2024 5:06P [...] of palpitations and irregular heartbeats. Wearing a production department supervisor for two weeks, with removal scheduled for tomorrow. - Increase metoprolol to 12.5 mg immediately, followed by 25 mg tonight and 25 mg tomorrow morning. - Monitor heart rate at home using available devices. - Patient to report heart rate to the office by 12:00 PM tomorrow. - Await results of the production department supervisor for further evaluation. - Follow-up appointment with [...] glycinate, citrate, or threonate. - Consider avoiding [id number] sleep aids like Relaxium if they are not effective for you. We discussed your vitamin intake: - Continue taking Vitamin D 2,000 IU daily and Sedan-3 supplements together for better absorption. Missing a [...] Cardiology Nurse Practitioner Section of Regional Cardiology [facility] Dept of Cardiovascular Medicine [facility] [place] [address] Office Office This note was partially generated using [email or web address] voice recognition system and may contain errors related to that system including grammar, punctuation, spelling, and words that may be inappropriate documented in this encounter [facility] 11-17-2024 Evaluation note Diagnosis Onset Date Resolution Abdominal pain acute November 17, 2024 1:51pm Gastroesophageal reflux disease noneactive November 17, 2024 1:51pm [facility] Work Phone: 1(375) 803-872707-07-2025 Evaluation note* Diagnosis Onset Date Resolution Status Admit Date Abdominal pain acute November 17, 2024 1:51pm Gastroesophageal reflux disease none active November 17, 2024 1:51pm Abdominal pain acute December 1:35pm Mass of multiple sites of liver acut e December 18, 2024 1:35pm [facility] Work Phone: 1(795) 884-832707-07-2025 Evaluation note* Diagnosis Onset Date Resolution Status Admit Date Abdominal pain acute November 17, 2024 1:51pm Gastroesophageal reflux disease none active November 17, 2024 1:51pm Abdominal pain acute December 1:35pm Mass of multiple sites of liver acut e December 18, 2024 1:35pm Cancer with unknown primary site acute December 30 1:08pm Metastasis to liver acute Augus t 2024 1:08pm Metastasis to lung acute December 30, 2024 1:08pm Prostate cancer chronic December 302024 1:08pm [facility] Work Phone: 1(609) 957-677407-01-2025 Telephone encounter Note* Telephone Encounter - George Cortes - 11/11/2024 2:29 PM EDT ----- Message from Елена Hwang MD sent at 11/07/2024 4:08 PM EDT ----- Please call patient and schedule him earlier appointment with first available nurse practitioner. He is s/p A-fib ablation procedure 11/07/2024 [facility]07-01-2025 Miscellaneous Notes* Telephone Encounter - George Cortes - 11/11/2024 2:29 PM EDT ----- Message from Елена Hwang MD sent at 11/07/2024 4:08 PM EDT ----- Please call patient and schedule him earlier appointment with first available nurse practitioner. He is s/p A-fib ablation procedure 11/07/2024 [facility]25 NoteHNO ID: [id number] Author: MADISYN LOZANO MD Service: ? Author Type: Anesthesiologist Type: Anesthesia Procedure Notes Filed: 11/07/2024 15:34 Note Text: ANESTHESIOLOGY PROCEDURE NOTE PIV General Information Procedure Start Time/Medication Administration: 11/07/2024 11:40 AM Procedure End Time: 11/07/2024 11:40 AM Patient Location: OR Staffing Anesthesiologist: Madisyn Lozano MD COMBINATION OPERATOR: Rachel Myers APRN.COMBINATION OPERATOR Performed by: COMBINATION OPERATOR Preparation Sterility Preparation: hand hygiene performed prior to procedure, surgical cap used, mask used, skin prep agent completely dried prior to procedure Site Prep: chlorhexidine Procedure Details Indication: need for IV access Needle Size/Type: 16 gauge angiocath Orientation: Right Location: Hand Imaging Guidance Used: No SIGNATURE: Rachel Myers APRN.CRNA PATIENT NAME: Anya Kamara DATE: November 07, 2024 TIME: 12:34 PM CSN: [id number]-[facility]06-27-2025 NoteHNO ID: [id number] Author: MADISYN LOZANO MD Service: ? Author Type: Anesthesiologist Type: Anesthesia Procedure Notes Filed: 11/07/2024 15:34 Note Text: ANESTHESIOLOGY PROCEDURE NOTE Airway General Information Procedure Start Time/Medication Administration: 11/07/2024 11:35 AM Procedure End Time: 11/07/2024 11:40 AM Patient location during procedure: OR Timeout Performed Pre-procedure: timeout performed Consent Obtained: Yes Patient identity confirmed: arm band and patient Staffing Anesthesiologist: Madisyn Lozano MD COMBINATION OPERATOR: Rachel Myers APRN.COMBINATION OPERATOR Performed by: TOSHA Indications and Patient Condition [...] November 07, 2024 TIME: 12:24 PM CSN: [id number]-Rittman Hospital06-27-2025 NoteHNO ID: [id number] Author: DIO ANAYA MD Service: Cardiovascular Medicine [...] met - report posted prior to leaving [facility] ([facility]). Zio monitor reviewed. Agree with [...] Supraventricular ectopy VE = Ventricular ectopy Dio Anaya, [facility]06-26-2025 NoteHNO ID: [id number] Author: JOSELYN ORLANDO RN Service: ? Author [...] discussed with Physician, nurse practitioner or Physician dental assistant upon discharge Instructions for transmitting EKG to Monitoring Center 3 month follow up instructions Contact number for information and questions Patient Evaluation: Verbalizes understanding Follow Up Plan: Follow up as directed by MD. Supplemental Material Given: Written Material Patient education regarding radiation exposure. Instructed By Joselyn Orlando RN, RN. In Department of CARDIOLOGY.[facility]06-26-2025 History of Present illness Narrative* Joselyn Orlando RN - 11/06/2024 11:39 AM EDT THE FOLLOWING WAS EVALUATED Motivation To Learn: [...] discussed with Physician, nurse practitioner or Physician dental assistant upon discharge Instructions for transmitting EKG to Monitoring Center 3 month follow up instructions Contact number for information and questions Patient Evaluation: Verbalizes understanding Follow Up Plan: Follow up as directed by MD. Supplemental Material Given: Written Material Patient education regarding radiation exposure. Instructed By Joselyn Orlando RN, RN. In Department of CARDIOLOGY. documented in this encounterDel[facility]06-26-2025 NoteEducation (EPSMN) ANYA KAMARA ([id number]) 1950 M [facility] Date Time Provider Department 11/06/24 DIO ANAYA [...] Encounter Status:Closed by JOSELYN ORLANDO RN on 11/06/24[facility] Instructions* Patient Instructions* Joselyn Reyes APRN.CNP - 10/20/2024 8:53 AM EDT We discussed your recent cough and shortness of breath: - You mentioned coughing for the past three weeks, which has improved over the last two days. No changes to your current medications or treatment plan were made today. - Continue monitoring your symptoms. If your cough worsens or you experience increased shortness ofbreath, please contact our office. We discussed your atrial fibrillation and upcoming ablation procedure: - You are scheduled for blood work on the at 9:00 AM in [place]. Please ensure you attend this appointment. - [...] - Your heart murmur was noted during today s exam. No changes to your care plan [...] concerns, please contact our office. Joselyn Reyes APRN.CNP documented in this encounterDelaware [facility]06-[facility]-2025 NoteHNO ID: [id number] Author: JOSELYN REYES APRN.CNP Service: ? Author Type: Nurse Practitioner Type: Progress Notes Filed: 10/20/2024 09:09 Note Text: [facility] Department of Cardiovascular Medicine SECTION OF CLINICAL CARDIOLOGY OUTPATIENT VISIT DATE October 20, 2024 OUTPATIENT VISIT TYPE ESTABLISHED PRIMARY CARE PHYSICIAN: Ezekiel Caro [address] [place] [address] REFERRING PHYSICIAN: No referring provider defined for [...] due to body habitus. - Exam indication: (more content not included)...[facility] 10-20-2024 History of Present illness Narrative* Joselyn Reyes APRN.RIB PULLER - 10/20/2024 8:38 AM EDT Images from the original note were not included. [facility] Department of Cardiovascular Medicine SECTION OF CLINICAL CARDIOLOGY OUTPATIENT VISIT DATE October 20, 2024 OUTPATIENT VISIT TYPE ESTABLISHED PRIMARY CARE PHYSICIAN: Ezekiel Caro [address] [place] [address] REFERRING PHYSICIAN: No referring provider defined for [...] mentions that clinicians have indicated it may requireintervention as it enlarges. He is scheduled for [...] lb 0.7 oz) SpO2 98% BMI 35.13 kg/m General: Alert & oriented, no acute distress. Skin: Normal. HEENT: Pupils equal, round. Oral cavity with multiple dental issues noted, including a broken toothand a large filling that has come out. [...] ABNORMAL ECG Confirmed by MD DANUTA, QARAB ([id number]) on 07/09/2024 11:29:[address] Result [...] obtained in 12 months --END OF FINDING-- Hassock Maker: ABEBE Transcribe Date/Time: Aug 22 2024 5:06P [...] work on the at 9:00 AM in [place]. - Conduct pre-procedure interview on the . [...] cough worsens or you experience increased shortness ofbreath, please contact our office. We discussed your atrial fibrillation and upcoming ablation procedure: - You are scheduled for blood work on the at 9:00 AM in [place]. Please ensure you attend this appointment. - [...] - Your heart murmur was noted during today s exam. No changes to your care plan [...] contact our office. CONTACT INFORMATION: Joselyn Reyes APRN.[place] Cardiology Nurse Practitioner Section of Regional Cardiology [facility] Dept of Cardiovascular Medicine [facility] [place] [address] [place] [address] Office Office This note was partially generated using [email or web address] voice recognition system and may contain errors related to that system including grammar, punctuation, spelling, and words that may be inappropriate documented in this encounterDel[facility]04-[facility] Telephone encounter Note * Telephone Encounter - Dirk Thayer RN - 08/26/2024 2:02 PM EDT Pt informed of results. [facility]04-15-2025 Miscellaneous Notes* Telephone Encounter - Dirk Thayer RN - 08/26/2024 2:02 PM EDT Pt informed of results. documented in this encounterDelaware [facility] Hospital04-11-2025 Telephone encounter Note * Telephone Encounter - Dirk Thayer RN - 08/22/2024 2:05 PM EDT Pt dropped off BMS forms. [facility]04-11-2025 Miscellaneous Notes* Telephone Encounter - Dirk Thayer RN - 08/22/2024 2:05 PM EDT Pt dropped off BMS forms. documented in this encounterDelaware County Hospital04-11-2025 History of Present illness Narrative* Vanita De La Cruz TECHNOLOGIST - 08/22/2024 1:00 PM EDT Radiology Service Progress Note PATIENT NAME: Anya Kamara DATE OF SERVICE: August 22, 2024 TIME: 1:11 PM PATIENT IDENTITY VERIFICATION COMPLETED USING TWO (2) IDENTIFIERS: Name and Date of confirmedby patient verbally and Name and Date of confirmed by identification band. FALL SCREENING: Has the patient had 2 falls in the last year or 1 fall with injury or currently using an Ambulatory Assistive Device (Walker, Cane, Wheelchair, Crutches, etc.)? No PATIENT GENDER DATA: Assigned male at PATIENT RELEVANT IMPLANT DATA REVIEWED: Yes PATIENT PRESENTS WITH AN IMPLANTABLE OR ATTACHED EXCEPTIONAL STUDENT EDUCATION AIDE: No RADIOLOGY DEPARTMENT: CT; Exam(s) Completed: Cardiac PERIPHERAL IV DATA: Site assessment: Clean,Dry and Intact, Site disposition Discontinued SIGNED BY: TECHNOLOGIST Sybil August 22, 2024 1:11 PM documented in this encounterDelaware County Hospital04-11-2025 NoteHNO ID: [id number] Author: VANITA DE LA CRUZ TECHNOLOGIST Service: Radiology Author Type: Technologist Type: [...] PATIENT PRESENTS WITH AN IMPLANTABLE OR ATTACHED EXCEPTIONAL STUDENT EDUCATION AIDE: No RADIOLOGY DEPARTMENT: CT; Exam(s) Completed: Cardiac PERIPHERAL IV DATA: Site assessment: Clean,Dry and Intact, Site disposition Discontinued SIGNED BY: TECHNOLOGIST Sybil August 22, 2024 1:11 [facility]MSouth[facility] [id number] Nurse Note* Esperanza Brooks RN - 08/22/2024 1:00 PM EDT Radiology Service Progress Note DATE OF SERVICE: [...] Value Ref Range Status 08/18/2024 65 >=60 mL/min/1.73m Final Comment: Estimated Glomerular Filtration Rate (eGFR) is calculated using the 2020 CKD-EPI creatinine equation. This equation utilizes serum creatinine, sex, and age as parameters. The creatinine assay has traceable calibration to isotope dilution- mass spectrometry. Refer to KDIGO guidelines for clinical interpretation. In patients with unstable renal function, e.g. those with acute kidney injury, the eGFRmay not accurately reflect actual GFR. eGFR- Date [...] DATE: August 22, 2024 TIME: 1:09 PM [facility]04-11-2025 Nurse Note* Esperanza Brooks RN - 08/22/2024 1:00 PM EDT Radiology Service Progress Note DATE OF SERVICE: [...] Value Ref Range Status 08/18/2024 65 >=60 mL/min/1.73m Final Comment: Estimated Glomerular Filtration Rate (eGFR) is calculated using the 2020 CKD-EPI creatinine equation. This equation utilizes serum creatinine, sex, and age as parameters. The creatinine assay has traceable calibration to isotope dilution- mass spectrometry. Refer to KDIGO guidelines for clinical interpretation. In patients with unstable renal function, e.g. those with acute kidney injury, the eGFRmay not accurately reflect actual GFR. eGFR- Date [...] DATE: August 22, 2024 TIME: 1:09 PM documented in this encounterDelaware County Hospital02-26-2025 Telephone encounter Note * Telephone Encounter - Brittani Weems RN - 07/09/2024 1:23 PM EST Spoke with patient and informed of provider message, He is agreeable to have CT scan He will need contact to assist with scheduling after order placed [facility]02-26-2025 Miscellaneous Notes* Telephone Encounter - Brittani Weems RN - 07/09/2024 1:23 PM EST Spoke with patient and informed of provider message, He is agreeable to have CT scan He will need contact to assist with scheduling after order placed * Telephone Encounter - Dirk Thayer RN - 07/09/2024 9:44 AM EST Called pt. No answer. Left VM to call back and review recommendations documented in this encounterDelaware [facility] Hospital02-26-2025 Telephone encounter Note * Telephone Encounter - Dirk Thayer RN - 07/09/2024 9:44 AM EST Called pt. No answer. Left VM to call back and review recommendations [facility]02-25-2025 Telephone encounter Note* Telephone Encounter - Elayne Edwards APRN.CNP - 07/08/2024 1:29 PM EST CBC already ordered by Dr. Anaya and awaiting completion. The following approved medication requests have been transmitted electronically. Requested Prescriptions Signed Prescriptions Disp Refills apixaban (ELIQUIS) 5 mg tab(s) 180 tablet 3 Sig: Take 1 tablet by mouth two times a day. Authorizing Provider: ELAYNE EDWARDS APRN.CNP [facility]02-25-2025 Miscellaneous Notes* Telephone Encounter - Elayne Edwards APRN.CNP - 07/08/2024 1:29 PM EST CBC already ordered by Dr. Anaya and awaiting completion. The following approved medication requests have been transmitted electronically. Requested Prescriptions Signed Prescriptions Disp Refills apixaban (ELIQUIS) 5 mg tab(s) 180 tablet 3 Sig: Take 1 tablet by mouth two times a day. Authorizing Provider: ELAYNE EDWARDS APRN.CNP * Telephone Encounter - Anamaria Michelle MA - 07/08/2024 10:26 AM EST Pharmacy electronically requesting refills as follows: Requested Prescriptions Pending Prescriptions Disp Refills apixaban (ELIQUIS) 5 mg tab(s) [Pharmacy Med Name: Eliquis 5 mg tablet] 180 tablet 3 Sig: Take 1 tablet by mouth two times a day. Please review and advise. Anamaria Michelle MA documented in this encounterDelaware County Hospital02-25-2025 NoteHNO ID: [id number] Author: RIOS DE LUNA RN Service: ? Author Type: Registered Nurse Type: Progress Notes Filed: 07/08/2024 11:39 Note Text: Called pt, informed him Rx has been sent to pharmacy. Verbalizes understanding. [facility]02-25-2025 Telephone encounter Note* Telephone Encounter - Rios De Luna RN - 07/08/2024 11:23 AM EST Addressed in nurse visit EKG encounter [facility]02-25-2025 Miscellaneous Notes* Telephone Encounter - Rios De Luna RN - 07/08/2024 11:23 AM EST Addressed in nurse visit EKG encounter * Telephone Encounter - George Cortes - 07/07/2024 11:57 AM EST Prescription Refill Information The patient has been identified by name and date of : Yes Caregiver verified no other encounters exist for this prescription request: Yes Caregiver confirmed with patient/requestor that no other refills are due, in the near future, with this provider at this time: Yes The last office visit in the department: 05/05/24 Does the patient have a future office visit with this provider/department: Yes Requested Prescriptions Pending Prescriptions Disp Refills dofetilide (TIKOSYN) 125 mcg capsule 128 capsule 0 Sig: Take 1 capsule by mouth two times a day. George Cortes July 07, 2024 11:58 AM documented in this encounterDelaware County Hospital02-25-2025 Telephone encounter Note * Telephone Encounter - Anamaria Michelle MA - 07/08/2024 10:26 AM EST Pharmacy electronically requesting refills as follows: Requested Prescriptions Pending Prescriptions Disp Refills apixaban (ELIQUIS) 5 mg tab(s) [Pharmacy Med Name: Eliquis 5 mg tablet] 180 tablet 3 Sig: Take 1 tablet by mouth two times a day. Please review and advise. Anamaria Michelle MA [facility]02-24-2025 Note* Addendum Note - Stefany Salas APRN.CNP - 07/07/2024 3:10 PM ESTAddended by: STEFANY SALAS on: 07/07/2024 03:10 PM Modules accepted: Orders [facility]02-24-2025 Miscellaneous Notes* Addendum Note - Stefany Salas APRN.CNP - 07/07/2024 3:10 PM ESTAddended by: STEFANY SALAS on: 07/07/2024 03:10 PM Modules accepted: Orders documented in this encounterDelaware County Hospital02-24-2025 NoteHNO ID: [id number] Author: RIOS DE LUNA RN Service: ? Author Type: Registered Nurse Type: Progress Notes Filed: 07/07/2024 14:46 Note Text: Heart, Vascular AND [facility] [place] Department of Cardiovascular Medicine OUTPATIENT VISIT TYPE NURSE VISIT PATIENT NAME: Anya Kamara DATE OF SERVICE: 07/07/2024 PRIMARY CHECK INSPECTOR: Dr. Hwang Anya Kamara is a 74 year old established patient who presents today for a nurse visit per Dr. Anyaa for an EKG Patient taking medication as prescribed: Yes Took medication today: Yes VISIT VITAL SIGNS: There were no vitals taken for this visit. Physician/MIQUEL notification and treatment plan: Agricultural Research Engineer for final review Nursing Plan: Patient education: trolley car mechanic for final review Patient instructed to call and update the office if there are any changes in current condition. Patient verbalizes understanding of the plan: Yes. Patient's questions were addressed during the visit today: Yes Rios De Luna RN July 07, 2024 2:44 [facility]CK[facility] History of Present illness Narrative* Rios De Luna RN - 07/07/2024 2:44 PM EST Images from the original note were not included. [facility], V[facility] [place] Department of Cardiovascular Medicine OUTPATIENT VISIT TYPE NURSE VISIT PATIENT NAME: Anya Kamara DATE OF SERVICE: 07/07/2024 PRIMARY CHECK INSPECTOR: Dr. Hwang Anya Kamara is a 74 year old established patient who presents today for a nurse visit per Dr. Anaya for an EKG Patient taking medication as prescribed: Yes Took medication today: Yes VISIT VITAL SIGNS: There were no vitals taken for this visit. Physician/MIQUEL notification and treatment plan: Agricultural Research Engineer for final review Nursing Plan: Patient education: trolley car mechanic for final review Patient instructed to call and update the office if there are any changes in current condition. Patient verbalizes understanding of the plan: Yes. Patient's questions were addressed during the visit today: Yes Rios De Luna RN July 07, 2024 2:44 PM documented in this encounterDelaware [facility] Hospital02-24-2025 Telephone encounter Note * Telephone Encounter - George Cortes - 07/07/2024 11:57 AM EST Prescription Refill Information The patient has been identified by name and date of : Yes Caregiver verified no other encounters exist for this prescription request: Yes Caregiver confirmed with patient/requestor that no other refills are due, in the near future, with this provider at this time: Yes The last office visit in the department: 05/05/24 Does the patient have a future office visit with this provider/department: Yes Requested Prescriptions Pending Prescriptions Disp Refills dofetilide (TIKOSYN) 125 mcg capsule 128 capsule 0 Sig: Take 1 capsule by mouth two times a day. George Crotes July 07, 2024 11:58 AM [facility]02-07-2025 Telephone encounter Note* Telephone Encounter - Maribel Franco RN - 06/20/2024 2:27 PM EST Patient offered and accepted procedure date of Sunday11/07/[address] Anaya. Patient is on Eliquis, instructed to continue without interruption, hold dose the morning of procedure. Per patient's request, placed on the cancellation list for a sooner procedure date. Patient will need pre op appointments within 30 days of procedure for OPD, Labs (CBC,BMP, 30 Day Type & Screen, Confirm) and EKG. Patient has cardiology appointment at [facility] on 10/03/24, patient going to reschedule that to be within 30 days of procedure date for H&P. Patient to get labs done prior to procedure at [facility] prior to procedure, patient asks we put in lab appointment to serve a s reminder for him. Explained need for labs to be done at [facility] so that [facility] and we could put in lab appointment for [facility]. Patient states he will get them done at [facility] when he has cardiology appointment. Letter with instructions mailed to the patient. Maribel Franco, RN, RN [facility]02-07-2025 Telephone encounter Note* Telephone Encounter - Maribel Franco RN - 06/20/2024 2:27 PM EST ----- Message from Dio Anaya MD sent at 05/05/2024 8:53 AM EST ----- Please schedule for PVI - farapulse. CARTO [place] On Eliquis - hold AM dose. thanks bb [facility]02-07-2025 Miscellaneous Notes* Telephone Encounter - Maribel Franco RN - 06/20/2024 2:27 PM EST Patient offered and accepted procedure date of Sunday11/07/[address] Anaya. Patient is on Eliquis, instructed to continue without interruption, hold dose the morning of procedure. Per patient's request, placed on the cancellation list for a sooner procedure date. Patient will need pre op appointments within 30 days of procedure for OPD, Labs (CBC,BMP, 30 Day Type & Screen, Confirm) and EKG. Patient has cardiology appointment at [facility] on 10/03/24, patient going to reschedule that to be within 30 days of procedure date for H&P. Patient to get labs done prior to procedure at [facility] prior to procedure, patient asks we put in lab appointment to serve a s reminder for him. Explained need for labs to be done at [facility] so that labs will [facility] processing and we could put in lab appointment for [facility]. Patient states he will get them done at [facility] when he has cardiology appointment. Letter with instructions mailed to the patient. Maribel Franco, RN, RN * Telephone Encounter - Maribel Franco RN - 06/20/2024 2:27 PM EST ----- Message from Dio Anaya MD sent at 05/05/2024 8:53 AM EST ----- Please schedule for PVI - farapulse. CARTO GA On Eliquis - hold AM dose. thanks bb documented in this encounterDelaware [facility] Hospital02-06-2025 Telephone encounter Note * Telephone Encounter - Brittani Guzman MA - 06/19/2024 7:33 AM EST FERNANDO: 04/04/2024 Jerry NOV: 10/03/2024 Jerry [facility]02-06-2025 Miscellaneous Notes* Telephone Encounter - Brittani Guzman MA - 06/19/2024 7:33 AM EST FERNANDO: 04/04/2024 Jerry NOV: 10/03/2024 Jerry documented in this encounterDelaware County Hospital12-23-2024 History of Present illness Narrative* Dio Anaya MD - 05/05/2024 8:30 AM EST Images from the original note were not included. EP STAFF NOTE: Please note: This note [...] lb 2.3 oz) SpO2 98% BMI 35.28 kg/m General: Appears well nourished. In no acute [...] pause noted at the time; sotalol was ultimatelydiscontinued- Started Tikosyn 125 mcg on 02/08/22 [id number] score 2 (Age & HTN) - on Eliquis 5 mg BID [...] was present. Isolated SVEs were occasional (3.4%, 28512), SVE Couplets were rare (<1.0%, 123), and [...] systolic function is normal. EF = 60 5% (2D biplane) Definity contrast used for [...] persistent AF. Initially managed with Sotalol, now lowdose Tikosyn. Worsening breakthrough events as of 2023. [...] may have occurred. Dio Anaya MD Pager: [phone] Office: [phone] I personally examined the patient and repeated [...] regimen Referring Physician: Ezekiel Caro [address] [place] [address] Elayne Edwards [address] [facility] [address] documented in this encounterDelaware County Hospital12-23-2024 NoteHNO ID: [id number] Author: DIO ANAYA MD Service: ? Author [...] discontinued- Started Tikosyn 125 mcg on 02/08/22 [id number] score 2 (Age AND HTN) - on [...] was present. Isolated SVEs were occasional (3.4%, 54319), SVE Couplets were rare (<1.0%, 123), and [...] may have occurred. Dio Anaya MD Pager: [phone] Office: [phone] I personally examined the patient and repeated the tejeda components of the exam and cardiac history, past medical and surgical history, social and family history. The assessment and plan were formulated and discussed with the patient and family. I spent over 25 minutes (face time) and greater than 50% of this time was spent coun (more content not included)...[facility] 04-22-2024 Telephone encounter Note* Telephone Encounter - Rios De Luna RN - 04/22/2024 11:19 AM EST Called left VM to call us back to review Zio [...] and where he would like to go ([facility], [facility], [facility], [facility], etc.) an I will place the order. Thanks, Elayne Edwards APRN.RIB PULLER [facility]12-10-2024 Miscellaneous Notes* Telephone Encounter - Rios De Luna RN - 04/22/2024 11:19 AM EST Called left VM to call us back to review Zio [...] and where he would like to go ([facility], [facility], [facility], [facility], etc.) an I will place the order. Elayne Fenton APRN.AUSTIN documented in this encounterDelaware County Hospital11-22-2024 Instructions* Patient Instructions* Elayne Edwards APRN.CNP - 04/04/2024 2:17 PM EST It was great to see you today, as we discussed: 1. Schedule echo to check aorta size 2. Follow up in 6 months or sooner if need arises documented in this encounterDelaware County Hospital11-22-2024 History of Present illness Narrative* Elayne Edwards APRN.AUSTIN - 04/04/2024 2:00 PM EST Images from the original note were not included. [facility] [place] [facility] Department of Cardiovascular Medicine SECTION OF CLINICAL CARDIOLOGY OUTPATIENT VISIT DATE April 04, 2024 OUTPATIENT VISIT TYPE ESTABLISHED PRIMARY CARE PHYSICIAN: Ezekiel Caro [address] [place] [address] CHIEF COMPLAINT: Follow up HISTORY OF PRESENT [...] frequency and duration of these with his 365net mobile device and let us know if he developed any symptoms. No further additions or changes were made at that time with plan for follow-up in 6 months. He was subsequently seen in the [facility] on 03/19/2024 after a mechanical fall in which he hit his head but did not lose consciousness. He required sutures and was discharged later that day. Since his last office visit he has had no perceived recurrence of atrial fibrillation. He continuesto have shortness of breath on exertion which he reports is chronic in nature and unchanged from prior. He was previously very active however recently has been limited by his hip pain. He is not parti cipating in any daily aerobic exercise. He does [...] or cold intolerance, Excessive sweating, Frequent urination, Frequentthirst Objective PHYSICAL EXAMINATION: BP 118/70 Pulse 72 Ht 182.9 cm (6') Wt 118 kg (260 lb 2.3 oz) SpO2 98% BMI 35.28 kg/m General: Well appearing, in no acute [...] systolic function is normal. EF = 60 5% (2D biplane) Definity contrast used for [...] FOR LVH, MAY BE NORMAL VARIANT ( [place] product ) NONSPECIFIC ST ABNORMALITY ABNORMAL ECG EKG 04/04/2024: Atrial fibrillation with LAFB at 86 bpm I have personally reviewed the Electrocardiogram. PLAN AND RECOMMENDATIONS: Paroxysmal atrial fibrillation - Initial dx 2017 - Recurrent hospitalization 12/2021 for AF/RVR, started on Sotalol and underwent DCC on 01/11/22 witha long post-conversion pause noted at the time; sotalol was ultimately discontinued - Started Tikosyn 125 mcg on 02/08/22 - [id number] score 2 (Age & HTN) - Anticoagulated with Eliquis 5 mg [...] to be doing well from a cardiovascular standpoint.He has no symptoms to suggest cardiac decompensation [...] forward. He has known dilated thoracic ascending aortaat 4.5 cm on most recent echocardiogram. He is due for repeat at this time. His heart rate and blood pressure remain under optimal control. I have made no additions or changes to his medications. He should continue to actively engage in cardiovascular risk factor modification and follow up with in 3 months for EKG if still on Tikosyn and6 months with provider, or sooner should need arise/pending Zio results. CONTACT INFORMATION: Elayne Edwards APRN.[facility] Cardiology Nurse Practitioner Section of [facility], [facility] Cardiology [facility] Dept of Cardiovascular Medicine [facility] [place] [address] [facility] [address] [place], [place] [address] Office Office This note was partially generated using Hearsay.it voice recognition system and may contain errors related to that system including grammar, punctuation, spelling, and words that may be inappropriate documented in this encounterDelaware County Hospital11-22-2024 NoteHNO ID: [id number] Author: ELAYNE EDWARDS APRN.RIB PULLER Service: ? Author Type: Nurse Practitioner Type: Progress Notes Filed: 04/04/2024 16:02 Note Text: [facility] [place] [facility] Department of Cardiovascular Medicine SECTION OF CLINICAL CARDIOLOGY OUTPATIENT VISIT DATE April 04, 2024 OUTPATIENT VISIT TYPE ESTABLISHED PRIMARY CARE PHYSICIAN: Ezekiel Caro [address] [place] [address] CHIEF COMPLAINT: Follow up HISTORY OF PRESENT [...] frequency and duration of these with his 365net mobile device and let us know if he developed any symptoms. No further additions or changes were made at that time with plan for follow-up in 6 months. He was subsequently seen in the [place] [facility] on 03/19/2024 after a mechanical fall [...] Extra ocular movements intact Oropharynx: Teeth in g (more content not included)...[facility] 04-04-2024 NoteHNO ID: [id number] Author: ASTON PILLAI DO Service: ? Author [...] was present. Isolated SVEs were occasional (3.4%, 62631), SVE Couplets were rare (<1.0%, 123), and [...] rare PVCs present. 5. No symptoms were reportedWadsworth-Rittman Hospital09-06-2024 Note* Addendum Note - Dirk Thayer RN - 01/18/2024 4:35 PM EDTAddended by: DIRK THAYER on: 01/18/2024 04:35 PM Modules accepted: Orders [facility]09-06-2024 Miscellaneous Notes* Addendum Note - Dirk Thayer RN - 01/18/2024 4:35 PM EDTAddended by: DIRK THAYER on: 01/18/2024 04:35 PM Modules accepted: Orders * Telephone Encounter - Brittani Weems RN - 01/18/2024 3:27 PM EDT Prescription Refill Information The patient has been identified by name and date of : Yes Caregiver verified no other encounters exist for this prescription request: Yes Caregiver confirmed with patient/requestor that no other refills are due, in the near future, with this provider at this time: Yes The last office visit in the department: 06/18/23 Does the patient have a future office visit with this provider/department: No Patient needs refills sent to [facility] as mail order pharmacy can not give his the mak they quoted andhe wants it sent local He has 4 pills left Requested Prescriptions Pending Prescriptions Disp Refills apixaban (ELIQUIS) 5 mg tab(s) 90 tablet 3 Sig: Take 1 tablet by mouth two times a day. Brittani Weems RN January 18, 2024 3:27 PM documented in this encounterDelaware County Hospital09-06-2024 Telephone encounter Note * Telephone Encounter - Brittani Weems RN - 01/18/2024 3:27 PM EDT Prescription Refill Information The patient has been identified by name and date of : Yes Caregiver verified no other encounters exist for this prescription request: Yes Caregiver confirmed with patient/requestor that no other refills are due, in the near future, with this provider at this time: Yes The last office visit in the department: 06/18/23 Does the patient have a future office visit with this provider/department: No Patient needs refills sent to [facility] as mail order pharmacy can not give his the mak they quoted andhe wants it sent local He has 4 pills left Requested Prescriptions Pending Prescriptions Disp Refills apixaban (ELIQUIS) 5 mg tab(s) 90 tablet 3 Sig: Take 1 tablet by mouth two times a day. Brittani Weems RN January 18, 2024 3:27 PM [facility]08-22-2024 Telephone encounter Note* Telephone Encounter - Dirk Thayer RN - 01/03/2024 3:58 PM EDT Stable labs no additions or changes needed at this time. Per Elayne Edwards APRN.RIB PULLER [facility]08-22-2024 Miscellaneous Notes* Telephone Encounter - Dirk Thayer RN - 01/03/2024 3:58 PM EDT Stable labs no additions or changes needed at this time. Per Elayne Edwards APRN.RIB PULLER documented in this encounterDelaware County Hospital08-22-2024 History of Present illness Narrative* Cailin Armstrong RN - 01/03/2024 1:49 PM EDT Images from the original note were not included. [facility] [place] Department of Cardiovascular Medicine OUTPATIENT VISIT TYPE NURSE VISIT PATIENT NAME: Anya Kamara DATE OF SERVICE: 01/03/2024 PRIMARY CHECK INSPECTOR: Dr Pillai Anya Kamara is a 73 year old established patient who presents today for a nurse visit per Dr. Pillai for an EKG Patient taking medication as prescribed: Yes Took medication today: Yes VISIT VITAL SIGNS: There were no vitals taken for this visit. Physician/MIQUEL notification and treatment plan: No abnormal findings. Nursing Plan: N/A Patient instructed to call and update the office if there are any changes in current condition. Patient verbalizes understanding of the plan: Yes. Patient's questions were addressed during the visit today: Yes Cailin Armstrong RN January 03, 2024 1:55 PM documented in this encounterDelaware County Hospital08-12-2024 Telephone encounter Note * Telephone Encounter - Anita Gipson - 12/24/2023 2:47 PM EDT Pharmacy verified in [facility] Patient has been identified by name and date of : Yes Patient aware RX will be sent to pharmacy. No need to notify patient. Patient phones for refill(s): Requested Prescriptions Pending Prescriptions Disp Refills apixaban (ELIQUIS) 5 mg tab(s) 30 tablet 11 Sig: Take 1 tablet by mouth two times a day. Date of last office visit : 04/11/2023 Date of next office visit : 02/12/2024 Last 2 Encounter Wt Readings: Date: Wt: 06/18/2023 117.5 kg (259 lb 0.7 oz) 03/09/2023 117 kg (257 lb 15 oz) Not applicable Please advise. Anita Gipson [facility]08-12-2024 Miscellaneous Notes* Telephone Encounter - Anita Gipson - 12/24/2023 2:47 PM EDT Pharmacy verified in [facility] Patient has been identified by name and date of : Yes Patient aware RX will be sent to pharmacy. No need to notify patient. Patient phones for refill(s): Requested Prescriptions Pending Prescriptions Disp Refills apixaban (ELIQUIS) 5 mg tab(s) 30 tablet 11 Sig: Take 1 tablet by mouth two times a day. Date of last office visit : 04/11/2023 Date of next office visit : 02/12/2024 Last 2 Encounter Wt Readings: Date: Wt: 06/18/2023 117.5 kg (259 lb 0.7 oz) 03/09/2023 117 kg (257 lb 15 oz) Not applicable Please advise. Anita Gipson documented in this encounterDelaware County Hospital08-06-2024 Telephone encounter Note * Telephone Encounter - Anita Gipson - 12/18/2023 11:34 AM EDT Called and left VM to schedule for EKG and have blood work done [facility]08-06-2024 Miscellaneous Notes* Telephone Encounter - Anita Gipson - 12/18/2023 11:34 AM EDT Called and left VM to schedule for EKG and have blood work done * Telephone Encounter - Elayne Edwards APRN.CNP - 12/18/2023 9:08 AM EDT Please schedule the patient for a nurses visit for EKG as he has not had one in 9 months. Please notify when EKG has been completed and we will send refills at that time. He additionally is due for blood work. Elayne Edwards APRN.CNP * Telephone Encounter - Anamaria Michelle MA - 12/18/2023 8:32 AM EDT Pharmacy electronically requesting refills as follows: Requested Prescriptions Pending Prescriptions Disp Refills dofetilide (TIKOSYN) 125 mcg capsule [Pharmacy Med Name: dofetilide 125 mcg capsule] 180 capsule 3 Sig: Take 1 capsule by mouth two times a day. Please review and advise. Anamaria Michelle MA documented in this encounterDelaware County Hospital08-06-2024 Telephone encounter Note * Telephone Encounter - Elayne Edwards APRN.CNP - 12/18/2023 9:08 AM EDT Please schedule the patient for a nurses visit for EKG as he has not had one in 9 months. Please notify when EKG has been completed and we will send refills at that time. He additionally is due for blood work. Elayne Edwards APRN.AUSTIN [facility]08-06-2024 Telephone encounter Note* Telephone Encounter - Anamaria Michelle MA - 12/18/2023 8:32 AM EDT Pharmacy electronically requesting refills as follows: Requested Prescriptions Pending Prescriptions Disp Refills dofetilide (TIKOSYN) 125 mcg capsule [Pharmacy Med Name: dofetilide 125 mcg capsule] 180 capsule 3 Sig: Take 1 capsule by mouth two times a day. Please review and advise. Anamaria Michelle MA [facility]02-05-2024 History of Present illness Narrative* Aston Pillai DO - 06/18/2023 2:27 PM EST Images from the original note were not included. [facility] SECTION OF [facility] OUTPATIENT VISIT DATE June 18, 2023 PRIMARY CARE PHYSICIAN: Ezekiel Caro [address] [place] [address] HISTORY OF PRESENT ILLNESS: Mr. Kamara is a 73 year old male. The patient returns for follow-up second history of paroxysmal atrial fibrillation, maintaining sinus rhythm with dofetilide. Additional history includes hypertension, hyperlipidemia, mitral regurgitation, long-term oral anticoagulation with Eliquis, obstructive sleep apnea compliant to CPAP mask and ascending aortic dilatation of 4.5 cm by echocardiography in March 2023. He denies chest discomfort, dyspnea, orthopnea, paroxysmal nocturnal dyspnea, near-syncope, syncope, GI/ bleeding or melena. He notes occasional, rare palpitations. He is uncertain as to how long they last. PLAN AND RECOMMENDATIONS: The patient remained stable without apparent symptoms that would suggest angina, cardiac decompensation nor significant paroxysms of atrial fibrillation. We have therefore continued him on his current medical regimen as prescribed. He is unaware as to the potential length of some of his paroxysms of atrial fibrillation for which we have asked him to try to keep track of meeting to write them down. We discussed obtaining a 365net mobile device to keep track of his atrial fibrillation should he have symptoms. He should continue his Eliquis. Heart rate, blood pressure recent cholesterol profile was favorable his current medical regimen as well. Dietary and lifestyle modification was otherwise r eemphasized to facilitate risk factor reduction. Will look forward to reevaluate him in 6 months time. He is echocardiogram updated March to follow his ascending aortic dilatation once again. Vitals: BP 124/70 Pulse 83 Ht 182.9 cm (6' 0.01) Wt 117.5 kg (259 lb 0.7 oz) SpO2 98% BMI 35.12 kg/m Physical Exam Vitals reviewed. Constitutional: General: He [...] chest tightness and shortness of breath. Cardiovascular: Positive for palpitations (rare). Negative for chest pain and leg swelling. Gastrointestinal: Negative for abdominal [...] tobacco: Never Substance Use Topics Alcohol use: Not Currently Alcohol/week: 25.0 standard drinks of alcohol Types: 15 Standard drinks or equivalent, 10 Glasses of Wine (5oz) per week Drug use: No FAMILY HISTORY Problem Relation Age of Onset Diabetes Father Prostate Cancer Brother ALLERGIES Allergen Reactions Percocet [Oxycodone* Itching Pt took 2 doses close together (per patient) CURRENT MEDICATIONS: dofetilide (TIKOSYN) 125 mcg capsule Take [...] cough for up to 20 doses. (Patient taking differently: Take 200 mg by mouth three times a day as needed for cough.) loperamide (IMODIUM) 2 mg cap(s) Take 2 mg by mouth four times daily as needed for diarrhea. finasteride (PROSCAR) 5 mg tablet once daily. tamsulosin (FLOMAX) 0.4 mg ORAL Cp24 Take 1 capsule by mouth daily at bedtime. apixaban (ELIQUIS) 5 mg tab(s) Take 1 tablet by mouth two times a day. Aston Pillai DO, [facility], [facility] Experimental Box Tester, [facility] Ambulatory Cardiology Experimental Box Tester, [facility] Cardiac Rehabilitation Experimental Box Tester, [facility] Cardiac Rehabilitation Experimental Box Tester, [facility] Experimental Box Tester, [facility] Ambulatory Cardiology Clinical Training And Development Specialist Profressor of Medicine, [facility] of Medicine - [facility] Staff Agricultural Research Engineer, Ezekiel and Angelika Chu Department of Cardiovascular Medicine/[facility] [place], [facility] Please note: This note has been produced using speech recognition software and may contain errors related to that system including savanah, punctuation, spelling, words, gender and phrases that may be inappropriate. documented in this encounterDelaware County Hospital11-29-2023 Nurse Note* Socorro Cam MA - 04/11/2023 4:05 PM EST EKG performed per protocol on Anya Kamara EKG was handed to Rios De Luna RN on April 11, 2023 at 3:50 PM Socorro Cam MA documented in this encounterDelaware County Hospital11-02-2023 Miscellaneous Notes* Telephone Encounter - Binu Steward RN - 03/15/2023 4:06 PM EDT Called PT left VM lab orders are in the computer * Telephone Encounter - Binu Steward RN - 03/15/2023 1:52 PM EDT Pended new orders Please advise Patient called in stating he needs new lab orders because he was scheduled for labs but had to leave without getting them done because he was waiting too long. Please place new lab orders if appropriate and inform patient. * Telephone Encounter - Anita Gipson - 03/15/2023 1:09 PM EDT Patient called in stating he needs new lab orders because he was scheduled for labs but had to leave without getting them done because he was waiting too long. Please place new lab orders if appropriate and inform patient. documented in this encounterDelaware County Hospital10-27-2023 Instructions* Patient Instructions* Joselyn Reyes APRN.CNP - 03/09/2023 2:14 PM EDT PLAN AND RECOMMENDATIONS: Take another 1/2 tablet of metoprolol tonight Take a whole tablet of metoprolol tonight. Get your ;lab work done; make sure you are fasting. Echocardiogram Follow up in 2-3 weeks for EKG CONTACT INFORMATION: Joselyn Reyes APRN.CNP Cardiology Nurse Practitioner Section of Regional Cardiology [facility] Dept of Cardiovascular Medicine [facility] [place] [address] [address] Office Office documented in this encounterDelaware County Hospital10-27-2023 History of Present illness Narrative* Joselyn Reyes APRN.CNP - 03/09/2023 2:00 PM EDT Images from the original note were not included. [facility] [place] [facility] Department of Cardiovascular Medicine SECTION OF CLINICAL CARDIOLOGY OUTPATIENT VISIT DATE March 09, 2023 OUTPATIENT VISIT TYPE ESTABLISHED PRIMARY CARE PHYSICIAN: Ezekiel Caro [address] [place] [address] REFERRING PHYSICIAN: Stefany Salas [address] [address] CHIEF COMPLAINT: Follow Up (I been feeling my heart beat a few times./Weight gain) HISTORY OF PRESENT ILLNESS: Mr. Kamara [...] weeks for EKG CONTACT INFORMATION: Joselyn Reyes APRN.[place] Cardiology Nurse Practitioner Section of Regional Cardiology [facility] Dept of Cardiovascular Medicine [facility] [place] [address] [address] Office Office documented in this encounterDelaware County Hospital08-04-2023 Miscellaneous Notes* Telephone Encounter - Yarely Bell - 12/15/2022 3:00 PM EDT Patient requesting to have med filled at this pharmacy to see if it would be cheaper. Pharmacy verified in [facility] Patient has been identified by name and [...] Please advise. Yarely Bell documented in this encounterDelaware County Hospital08-03-2023 Miscellaneous Notes* Telephone Encounter - Urvashi Pruett LPN - 12/14/2022 8:38 AM EDT Received a fax from [facility] requesting refills on the following medication. Please file if appropriate. Last appt 06/06/22 documented in this encounterDelaware County Hospital02-10-2023 Miscellaneous Notes* Telephone Encounter - Binu Steward RN - 06/23/2022 10:15 AM EST Called PT left VM about BMS letter PT did not meet the 3% OOP cost. Asked PT to go to his pharmacy to get a OOP cost for his prescriptions if he has 3% drop off documentation to the office we will Fax to BMS. documented in this encounterDelaware County Hospital01-25-2023 Miscellaneous Notes* Telephone Encounter - Roz Kelly APRN.RIB PULLER - 06/07/2022 7:02 AM EST Please call and schedule a 3 month nurse visit for EKG (Tikosyn) Thanks! Roz * Telephone Encounter - Roz Polanco RN - 06/06/2022 10:48 AM EST Patient called to request Tikosyn refill; was due for EKG 05/18/22, performed at [facility] Pillai 06/01/22. documented in this encounterDelaware County Hospital01-24-2023 Miscellaneous Notes* Telephone Encounter - Cailin Armstrong RN - 06/06/2022 2:18 PM EST Faxed 2022 [employer] application with supporting documentation. documented in this encounterDelaware County Hospital12-27-2022 Miscellaneous Notes* Telephone Encounter - Elayne Edwards APRN.RIB PULLER - 05/09/2022 11:00 AM EST Will be due for EKG 05/18 and [...] accordingly. Elayne Edwards APRN.AUSTIN documented in this encounterDelaware County Hospital11-02-2022 Miscellaneous Notes* Telephone Encounter - Binu Steward RN - 03/15/2022 9:04 AM EDT Called PT labs from yesterday show that [...] Thanks ~ JJ PT states he understands * Telephone Encounter - Stefany Salas APRN.AUSTIN - 03/14/2022 4:04 PM EDT Please let the patient know that labs [...] lasix. Thanks ~ JJ documented in [facility]22 Instructions* Patient Instructions* Stefany Salas APRN.CNP - 02/15/2022 10:39 AM EDT You [...] cost for the year. Fax this to [phone] [facility] [place] Follow up with Dr. Pillai in 3 months. See a lung doctor for you history of COPD documented in this encounterDelaware [facility]10-05-2022 History of Present illness Narrative* Stefany Salas APRN.CNP - 02/15/2022 10:00 AM EDT Images from the original note were not included. [facility] [place] [facility] Department of Cardiovascular Medicine SECTION OF CLINICAL CARDIOLOGY OUTPATIENT VISIT DATE February 15, 2022 OUTPATIENT VISIT TYPE ESTABLISHED All documentation from previous visit of January 20, 2022 was copied and pasted, documentation hasbeen reviewed and edited as necessary for today's visit. Patient Name: Anya Kamara : 1950 PRIMARY CARE PHYSICIAN: Ezekiel Caro DO REFERRING PHYSICIAN: Stefany Salas [address] [id number] CHIEF COMPLAINT: Patient presents with: Follow Up Interval Hx: Mr. Kamara comes for a hospital follow up visit for atrial fibrillation. He was admitted to [facility] 01/07-01/13 for Tikosyn loading COPIED FROM DISCHARGE [...] the PFSH and ROS obtained by others. Stefany Salas APRN.RIB PULLER CURRENT MEDICATIONS: Current Outpatient Medications Medication Sig [...] as detected by Doppler. There is a bekl-im-luoa variability in LV systolic function due to [...] which included preparing to see the patient, zvso-pe-afyl patient care, completing clinical documentation, performing a medically appropriate examination, counseling and educating the patient/family/caregiver, ordering medications, tests, or p rocedures, independently interpreting results (not separately reported), and communicating results to the patient/family/caregiver. Thank you very much for allowing me to assist in the care of Anya Kamara. Please do not hesitate to contact me if you have questions or concerns. CONTACT INFORMATION: Stefany Salas APRN.AUSTIN Cardiology Nurse Practitioner Section of Regional Cardiology [facility] Dept of Cardiovascular Medicine [facility] [place] [address] Office Office February 15, 2022 9:08 AM documented in this encounterDelaware County Hospital09-27-2022 Miscellaneous Notes* Telephone Encounter - Cailin Armstrong RN - 02/07/2022 3:55 PM EDT Called pt and explained procedure. Pt will wait for phone call from bed management. * Telephone Encounter - Cailin Armstrong RN - 02/07/2022 3:19 PM EDT Spoke to Dr. Hilary Pittman will be the admitting doc. Bed Management will call pt sometime tomorrow ONCE bed is ready. Left VM for pt informing above. * Telephone Encounter - Cailin Armstrong RN - 02/07/2022 2:06 PM EDT Spoke to Stefany Salas CNP She will see which MD can accept pt and call us back. * Telephone Encounter - Brittani Weems - 02/07/2022 11:56 AM EDT Patient calling to set up tykosin loading appointment Please call patient to discuss [phone] documented in this encounterDelaware County Hospital09-21-2022 History of Present illness Narrative* Roz Polanco RN - 02/01/2022 9:38 AM EDTSummary: EKG Patient arrived for 12 lead ECG with interpretation.Ecg has been interpreted by Stefany Salas NP. Patient to be scheduled for Tikosyn loading. documented in this encounterDelaware [facility] Hospital09-16-2022 Miscellaneous Notes* Telephone Encounter - Binu Steward RN - 01/27/2022 10:37 AM EDT Called PT left VM about Patient called regarding his IR level which was 1.4. Asked if you would please call him regarding this and his medication. TY He is on Eliquis start date 01/23/22 was on coumadin D/C 01/13/22 Last INR was 1.9 Not sure if he started Eliquis? * Telephone Encounter - Sherrie Andrade - 01/26/2022 3:19 PM EDT Patient called regarding his IR level which was 1.4. Asked if you would please call him regarding this and his medication. TY documented in this encounterDelaware County Hospital09-12-2022 Miscellaneous Notes* Telephone Encounter - Stefany Salas APRN.RIB PULLER - 01/23/2022 1:41 PM EDT Patient's request for medication is as follows: Requested Prescriptions Signed Prescriptions Disp Refills apixaban (ELIQUIS) 5 mg tab(s) 30 tablet 5 Sig: Take 1 tablet by mouth twice daily. Authorizing Provider: STEFANY SALAS Prescription(s) as above. Please process accordingly. Stefany Salas APRN.AUSTIN documented in this encounterDelaware County Hospital09-09-2022 Miscellaneous Notes* Telephone Encounter - Roz Polanco RN - 01/20/2022 3:45 PM EDT Spoke with patient; he did not feel INR was accurate, as his blood looked too thick during his test. Instructions given; patient stated he eats spinach salad just about every night. Will have to go out and fill his Eliquis prescription tomorrow. * Telephone Encounter - Stefany Salas APRN.CNP - 01/20/2022 3:39 PM EDT INR today 2.9 Please call patient and advise him to hold Warfarin today as directed. Have some vitamin K foods tonight (green leafy vegetables) Start Eliquis 1 tablet tomorrow night at bedtime. Then on Sunday start taking 1 tablet in the AM and 1 tablet in the PM. Thanks ~ JJ * Telephone Encounter - Roz Polanco RN - 01/20/2022 3:27 PM EDTSummary: PT/INR Jasmyne from [facility] in [place] called to report results: PT 34.4 and INR is 2.9 Patient has been instructed to stop Warfarin and start Eliquis once INR is below 2. documented in this encounterDelaware County Hospital09-09-2022 Miscellaneous Notes* Telephone Encounter - Roz Polanco RN - 01/20/2022 8:40 AM EDTSummary: ELIQUIS PAP Patient assistance program paperwork faxed to [facility]. documented in this encounterDelaware County Hospital09-09-2022 Instructions* Patient Instructions* Stefany Salas APRN.AUSTIN - 01/20/2022 8:31 AM EDT You are in atrial fibrillation today ---> but at rest your heart rate is well controlled. Continue Toprol 25 mg daily ---> you were actually on a higher dose of this in the past but yourheart rate on manual count today was 64. I want to stop Warfarin and Start a blood thinner called Eliquis. DO NOT start this until your INR is less than 2.0 Prescription for Eliquis sent to [facility] for the first 30 days for free. Bring the coupon I gave you with you to the [facility]. I will send a intermission coordinator prescription to mail order. Please have INR checked today at 2 PM at your doctor's office. Do not take Coumadin tonight Please have the office call me with you INR number ---based on the results I will let you know whenyou can start the new medication. Direct Nurse line is [phone] - ok to leave a voicemail. We are going to plan to have you admitted for Tikosyn loading next week. We will call you once thisis arranged. All other medications stay the same for now. I will review this with the doctors here in the office as well. documented in this encounterDelaware County Hospital09-09-2022 History of Present illness Narrative* Stefany Salas APRN.CNP - 01/20/2022 8:00 AM EDT Images from the original note were not included. [facility] [place] [facility] Department of Cardiovascular Medicine SECTION OF CLINICAL CARDIOLOGY OUTPATIENT VISIT DATE January 20, 2022 OUTPATIENT VISIT TYPE ESTABLISHED Patient Name: Anya Kamara : 1950 PRIMARY CARE PHYSICIAN: Ezekiel Crao DO REFERRING PHYSICIAN: Stefany Salas [address] [address] CHIEF COMPLAINT: Patient presents with: CARD Hospital Follow Up: No new symptoms since getting out of the hospital. HR was 150 once. Interval Hx: Mr. Kamara comes for a hospital follow up visit for atrial fibrillation. He was admitted to [facility] 01/07-01/13 for COPD exacerbation and AF RVR. [...] the PFSH and ROS obtained by others. Stefany Salas, REGULATORY LEAD.RIB PULLER CURRENT MEDICATIONS: Current Outpatient Medications Medication Sig amoxicillin-clavulanic acid (AUGMENTIN) 875-125 mg per tablet Take 1 tablet by mouth every 12 hoursfor 13 doses. losartan (COZAAR) 25 mg tablet [...] tablet Take 1 tablet by mouth every Sunday,Sunday,,Sunday. warfarin (COUMADIN) 7.5 mg tablet Take 0.5 [...] as detected by Doppler. There is a elrh-yx-qvtq variability in LV systolic function due to [...] - Previously followed with general card at [place] - initial dx 2017 - Recently admitted to [facility] with recurrent AF RVR. - Was on [...] noted. Continue Metoprolol 25 mg daily for now.Manual HR count was well controlled after EKG [...] which included preparing to see the patient, wepe-la-ynlh patient care, completing clinical documentation, performing a medically appropriate examination, counseling and educating the patient/family/caregiver, ordering medications, tests, or p rocedures, independently interpreting results (not separately reported), and communicating results to the patient/family/caregiver. Thank you very much for allowing me to assist in the care of Anya Kamara. Please do not hesitate to contact me if you have questions or concerns. CONTACT INFORMATION: Stefany Salas APRN.CNP Cardiology Nurse Practitioner Section of Regional Cardiology [facility] Dept of Cardiovascular Medicine [facility] [place] [address] [place] [address] Office Office January 20, 2022 7:42 AM documented in this encounterDelaware [facility] Hospital05-08-2017 History of Past illness Narrative* Problem Noted Date Resolved Date Chronic headaches 09/18/2016 09/18/2016 documented as of this encounter (statuses as of 01/20/2022) [facility] of [facility] illness Narrative* Problem Noted Date Resolved Date Chronic headaches 09/18/2016 09/18/2016 documented as of this encounter (statuses as of 01/23/2022) [facility] of [facility] illness Narrative* Problem Noted Date Resolved Date Chronic headaches 09/18/2016 09/18/2016 documented as of this encounter (statuses as of 01/24/2022) [facility] Narrative* Problem Noted Date Resolved Date Chronic headaches 09/18/2016 09/18/2016 documented as of this encounter (statuses as of 01/27/2022) [facility] Narrative* Problem Noted Date Resolved Date Chronic headaches 09/18/2016 09/18/2016 documented as of this encounter (statuses as of 02/01/2022) [facility] Narrative* Problem Noted Date Resolved Date Chronic headaches 09/18/2016 09/18/2016 documented as of this encounter (statuses as of 02/07/2022) [facility] Narrative* Problem Noted Date Resolved Date Chronic headaches 09/18/2016 09/18/2016 documented as of this encounter (statuses as of 02/16/2022) [facility] Narrative* Problem Noted Date Resolved Date Chronic headaches 09/18/2016 09/18/2016 documented as of this encounter (statuses as of 03/13/2022) [facility] Narrative* Problem Noted Date Resolved Date Chronic headaches 09/18/2016 09/18/2016 documented as of this encounter (statuses as of 03/15/2022) [facility] Narrative* Problem Noted Date Resolved Date Chronic headaches 09/18/2016 09/18/2016 documented as of this encounter (statuses as of 05/14/2022) [facility] Narrative* Problem Noted Date Resolved Date Chronic headaches 09/18/2016 09/18/2016 documented as of this encounter (statuses as of 06/06/2022) [facility] Narrative* Problem Noted Date Resolved Date Chronic headaches 09/18/2016 09/18/2016 documented as of this encounter (statuses as of 06/07/2022) [address]08-2017 History of Past illness Narrative* Problem Noted Date Resolved Date Chronic headaches 09/18/2016 09/18/2016 documented as of this encounter (statuses as of 06/23/2022) [facility] Narrative* Problem Noted Date Diagnosed Date Resolved Date Chronic headaches 09/18/2016 09/18/2016 documented as of this encounter (statuses as of 12/14/2022) [facility] Narrative* Problem Noted Date Diagnosed Date Resolved Date Chronic headaches 09/18/2016 09/18/2016 documented as of this encounter (statuses as of 12/15/2022) [facility] Narrative* Problem Noted Date Diagnosed Date Resolved Date Chronic headaches 09/18/2016 09/18/2016 documented as of this encounter (statuses as of 03/09/2023) [facility] Narrative* Problem Noted Date Diagnosed Date Resolved Date Chronic headaches 09/18/2016 09/18/2016 documented as of this encounter (statuses as of 03/16/2023) [facility] Narrative* Problem Noted Date Diagnosed Date Resolved Date Chronic headaches 09/18/2016 09/18/2016 documented as of this encounter (statuses as of 04/12/2023) [facility] Narrative* Problem Noted Date Diagnosed Date Resolved Date Chronic headaches 09/18/2016 09/18/2016 documented as of this encounter (statuses as of 06/19/2023) [facility] Future App[facility]ments Appointment Date:03/23/2021 01:30:00 PM Scheduled Provider: [facility] Appointment Type:PC Nurse Protime Appointment Date:04/19/2021 02:45:00 PM Scheduled Provider:EZEKIEL CARO DO Location:[facility] Appointment Type:PC OV Follow Up [facility] Evaluation + Plan note Future Appointments Appointment Date:06/22/2021 01:30:00 PM Scheduled Provider: Location:[facility] Appointment Type:PC Nurse Protime Appointment Date:07/26/2021 02:00:00 PM Scheduled Provider:EZEKIEL CARO DO [facility] Appointment Type:PC OV [facility] Evaluation + Plan note Future Appointments Appointment Date:07/05/2021 02:00:00 PM Scheduled Provider: Location:[facility] Appointment Type:PC Nurse Protime Appointment Date:07/12/2021 08:00:00 AM Scheduled Provider: Location:[facility] Appointment Type:CT Chest w/o Contrast Appointment Date:07/12/2021 09:00:00 AM Scheduled Provider: Location:[facility] Appointment Type:CV Procedure - AOH Echo Appointment Date:07/26/2021 02:00:00 PM Scheduled Provider:EZEKIEL CARO DO Location:[facility] Appointment Type:PC OV Future Scheduled Tests Laboratory* N-Terminal proBNP 12/29/21 * Lipid Profile 12/29/21 Radiology* CT Thorax w/o Contrast 07/12/21 [facility] Evaluation + Plan note Future Appointments Appointment Date:02/23/2022 03:00:00 PM Scheduled Provider:EZEKIEL CARO DO Location:[facility] Appointment Type:PC OV Follow Up Future Scheduled Tests Laboratory* Lipid Profile 12/29/21 * N-Terminal proBNP 12/29/21 Radiology* CT Thorax w/o Contrast 08/17/21 [facility] Evaluation + Plan note Future Appointments Appointment Date:07/24/2022 02:15:00 PM Scheduled Provider:EZEKIEL CARO DO Location:[facility] Appointment Type:PC OV Future Scheduled Tests Laboratory* Lipid Profile 12/29/21 * N-Terminal proBNP 12/29/21 Radiology* CT Thorax w/o Contrast 08/17/21 [facility] Evaluation + Plan note Future Appointments Appointment Date:09/02/2024 01:30:00 PM Scheduled Provider:EZEKIEL CARO DO Location:[facility] Appointment Type:PC OV [facility] Evaluation + Plan note Future Appointments Appointment Date:11/03/2024 02:45:00 PM Scheduled Provider:CALEB MCCURDY DO Location:[facility] Appointment Type:PC OV Appointment Date:11/18/2024 02:45:00 PM Scheduled Provider:CALEB MCCURDY DO Location:[facility] Appointment Type:PC OV [facility] Evaluation noteNo assessment information available [facility] Work Phone: Evaluation note* Diagnosis Paroxysmal atrial fibrillation (HCC) Atrial fibrillation [facility]* Diagnosis Paroxysmal atrial fibrillation (HCC)- Primary Atrial fibrillation Primary hypertension Unspecified essential hypertension Mitral valve insufficiency, unspecified etiology Alcohol abuse Alcohol abuse, unspecified documented in [facility]* Diagnosis Paroxysmal atrial fibrillation (HCC)- Primary Atrial fibrillation documented [facility]* Diagnosis Paroxysmal atrial fibrillation (HCC)- Primary Atrial fibrillation Primary hypertension Unspecified essential hypertension Mitral valve insufficiency, unspecified etiology Alcohol abuse Alcohol abuse, unspecified Chronic obstructive pulmonary disease, unspecified COPD type (HCC) BRENDA on CPAP Obstructive sleep apnea (adult) (pediatric) documented in [facility]* Diagnosis Paroxysmal atrial fibrillation (HCC)- Primary Atrial fibrillation Lower extremity edema Edema documented in [facility]* Diagnosis Paroxysmal atrial fibrillation (HCC)- Primary Atrial fibrillation documented [facility]* Diagnosis Paroxysmal atrial fibrillation (HCC) Atrial fibrillation documented in [facility]* Diagnosis Paroxysmal atrial fibrillation (HCC) Atrial fibrillation documented [facility]* Diagnosis Vitamin D deficiency- Primary Unspecified vitamin D deficiency Iron deficiency Iron deficiency anemia, unspecified Other fatigue Vitamin B12 deficiency Other B-complex deficiencies Mixed hyperlipidemia SOB (shortness of breath) Shortness of breath Primary hypertension Unspecified essential hypertension Paroxysmal atrial fibrillation (HCC) Atrial fibrillation [facility]* Diagnosis Other fatigue- Primary Vitamin D deficiency Unspecified vitamin D deficiency Coronary artery disease involving [place] coronary artery of [place] heart without angina pectoris documented [facility]* Diagnosis Coronary artery disease involving [place] coronary artery of [place] heart without angina pectoris- Primary documented in [facility]* Diagnosis Paroxysmal atrial fibrillation (HCC)- Primary Atrial fibrillation Primary hypertension Unspecified essential hypertension Mixed hyperlipidemia Nonrheumatic mitral valve regurgitation 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 current use of anticoagulant Long-term (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 anticoagulants BRENDA on CPAP Obstructive sleep apnea (adult) (pediatric) Ascending aorta dilatation (HCC) Thoracic aortic ectasia Encounter for monitoring dofetilide therapy Encounter for therapeutic drug monitoring documented [facility] this encounter [facility]* Diagnosis Encounter for monitoring dofetilide therapy- Primary Encounter for therapeutic drug monitoring Paroxysmal atrial fibrillation (HCC) Atrial fibrillation 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 (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 anticoagulants Long-term (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 anticoagulants documented in this encounter [facility]* Diagnosis Encounter for monitoring dofetilide therapy Encounter for therapeutic drug monitoring documented [facility] this encounter [facility]* Diagnosis Paroxysmal atrial fibrillation (HCC)- Primary Atrial fibrillation Encounter for monitoring dofetilide therapy Encounter for therapeutic drug monitoring Enlarged thoracic aorta (HCC) Thoracic aortic ectasia alf (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 anticoagulants Long-term (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 anticoagulants Primary hypertension Unspecified essential hypertension documented [facility] this encounter [facility]* Diagnosis Paroxysmal atrial fibrillation (HCC) Atrial fibrillation documented in this encounter [facility]* Diagnosis Paroxysmal atrial fibrillation (HCC) Atrial fibrillation documented in this encounter [facility]* Diagnosis Atrial fibrillation, unspecified type (HCC)- Primary documented in this encounter [facility]* Diagnosis Paroxysmal atrial fibrillation (HCC)- Primary Atrial fibrillation Paroxysmal atrial fibrillation (HCC) Atrial fibrillation documented in this encounter [facility]* Diagnosis Paroxysmal atrial fibrillation (HCC) Atrial fibrillation Paroxysmal atrial fibrillation (HCC) Atrial fibrillation documented [facility] this encounter [facility]* Diagnosis Enlarged thoracic aorta- Primary Thoracic aortic ectasia Paroxysmal atrial fibrillation (HCC) Atrial fibrillation documented in this encounter [facility]* Diagnosis Enlarged thoracic aorta Thoracic aortic ectasia Paroxysmal atrial fibrillation (HCC) Atrial fibrillation documented in this encounter [facility]* Diagnosis Cough, unspecified type Shortness of breath Atrial fibrillation, unspecified type (HCC) Obstructive sleep apnea Obstructive sleep apnea (adult) (pediatric) Abdominal aortic aneurysm (AAA) without rupture, unspecified part Paroxysmal atrial fibrillation (HCC) Atrial fibrillation documented in this encounter [facility]* Diagnosis Atrial fibrillation, unspecified type (HCC)- Primary [facility] this encounter [facility]* Diagnosis Onset Date Resolution Status Admit Date Abdominal pain acute November 17, 2024 1:51pm Gastroesophageal reflux disease none active November 17, 2024 1:51pm [facility] Work Phone: Evaluation note* Diagnosis Paroxysmal atrial fibrillation (HCC)- Primary Atrial fibrillation Chronic cough Cough Obstructive sleep apnea Obstructive sleep apnea (adult) (pediatric) Vitamin D deficiency Unspecified vitamin D deficiency [facility]* Diagnosis Paroxysmal atrial fibrillation (HCC) Atrial fibrillation documented [facility]* Diagnosis Paroxysmal atrial fibrillation (HCC)- Primary Atrial fibrillation documented in this encounter [facility] course Narrative No data available for this section [facility] Hospital Discharge instructions No data available for this section [facility] Progress note No data available for this section [facility] Reason for referral (narrative)* Outpatient Procedure (Routine) - Closed Specialty Diagnoses / Procedures Referred By Contac t Referred To Contact [facility] Diagnoses Paroxysmal atrial fibrillation (HCC) Procedures ECG COMPLETE ECG ROUTINE ECG W/LEAST 12 LDS W/I&R Stefany Salas APRN.CNP [address] [address] [facility] [place] [address] Referral ID Status Reason Start Date Expiration Date V isits Requested Visits Authorized [id number] Closed Auto-Generate d Referral 01/20/2022 01/20/2023 1 1 [facility] for referral (narrative)* Outpatient Procedure (Routine) - Closed Specialty Diagnoses / Procedures Referred By Contac t Referred To Contact [facility] [facility] Diagnoses Paroxysmal atrial fibrillation (HCC) Procedures ECG COMPLETE ECG ROUTINE ECG W/LEAST 12 LDS W/I&R Stefany Salas APRN.CNP [address] [address] [facility] [address] [place] [id number] Referral ID Status Reason Start Date Expiration Date V isits Requested Visits Authorized [id number] Closed Auto-Generate d Referral 02/15/2022 02/15/2023 1 1 [facility] for referral (narrative)* Outpatient Procedure (Routine) - Authorized Specialty Diagnoses / Procedures Referred By Contac t Referred To Contact [facility] Diagnoses SOB (shortness of breath) Procedures ECHO ECHO TTHRC R-T 2D W/WOM-MODE COMPL SPEC&COLR D Joselyn Reyes APRN.CNP [address] [place] [address] [address] Referral ID Status Reason Start Date Expiration Date Visits Requested Visits Authorized [id number] Authorized Auto-Generat ed Referral 3 03/08/2024 1 1 [facility] for referral (narrative)* Outpatient Procedure (Routine) - Pending Review Specialty Diagnoses / Procedures Referred By Contac t Referred To [facility] Diagnoses Coronary artery disease involving [place] coronary artery of [place] heart without angina pectoris Procedures ECG COMPLETE ECG ROUTINE ECG W/LEAST 12 LDS W/I&R Joselyn Reyes APRN.CNP [address] [place] [address] [address] Referral ID Status Reason Start Date Expiration Date Visits Requested Visits Authorized [id number] Pending Review Auto-Generat ed Referral 3 04/10/2024 1 1 [facility] for referral (narrative)* Outpatient Procedure (Routine) - New Request Specialty Diagnoses / Procedures Referred By Contac t Referred To Contact [facility] Diagnoses Encounter for monitoring dofetilide therapy Procedures ECG COMPLETE ECG ROUTINE ECG W/LEAST 12 LDS W/I&R Elayne Edwards APRN.RIB PULLER [address] [place] [address] [address] Referral ID Status Reason Start Date Expiration Date Visits Requested Visits Authorized [id number] New Request Auto-Generat ed Referral 12/18/2023 12/17/2024 1 1 [facility] for referral (narrative)* Outpatient Procedure (Routine) - Authorized Specialty Diagnoses / Procedures Referred By Kitty t Referred To Contact [facility] Diagnoses Enlarged thoracic aorta (HCC) Procedures ECHO ECHO TTHRC R-T 2D W/WOM-MODE COMPL SPEC&COLR D Elayne Edwards APRN.RIB PULLER [address] [place] [address] [address] Referral ID Status Reason Start Date Expiration Date Visits Requested Visits Authorized [id number] Authorized Auto-Generat ed Referral 4 04/04/2025 1 1 [facility] for referral (narrative)* Outpatient Procedure (Routine) - New Request Specialty Diagnoses / Procedures Referred By Kitty t Referred To Contact [facility] Diagnoses Paroxysmal atrial fibrillation (HCC) Procedures ECG COMPLETE ECG ROUTINE ECG W/LEAST 12 LDS W/I&R Dio Anaya MD [address] [place] [address] [place] [id number] Referral ID Status Reason Start Date Expiration Date Visits Requested Visits Authorized [id number] New Request Auto-Generat ed Referral 4 05/05/2025 4 4 [facility] for referral (narrative)No reason for referral information availableWLakeHealth [facility] Work Phone: Summary Purpose Family History No Family History Records Found Relationship Condition Age at Onset Recorded Date/T cat father Alcoholism Unknown Relationship Condition Age at Onset Recorded Date/T cat father Alcoholism Unknown brother Malignant neoplasm Unknown aunt Malignant neoplasm Unknown grandmother Dementia Unknown Advance Directives No Advanced Directives Records Found Date Activated Date Inactivated Comments 12/23/2024 3:27 PM 12/26/2024 4:09 PM Question Answer Comments Full Code Order Discussed With: Patient Date Activated Date Inactivated Comments 01/07/2022 8:53 PM 01/13/2022 5:18 PM Question Answer Comments Full Code Order Discussed With: Patient Date Activated Date Inactivated Comments 12/23/2024 3:27 PM Question Answer Comments Full Code Order Discussed With: Patient Date Activated Date Inactivated Comments 01/07/2022 8:53 PM 01/13/2022 5:18 PM Question Answer Comments Full Code Order Discussed With: Patient Advance Directive Response Recorded Date/ Time Living Will No July 26, 2019 3:21pm Power of Actuary Clerk No July 25 3:21pm Latest Code Status on File Code Status Date Activated Date Inactivated Comments Full Code 01/07/2022 8:53 PM 01/13/2022 5:18 PM Full Code Order Discussed With: Patient Latest Code Status on File Code Status Date Activated Date Inactivated Comments Full Code 01/07/2022 8:53 PM 01/13/2022 5:18 PM Advance Directive Response Recorded Date/ Time Living Will No July 26, 2019 2:21pm Power of Actuary Clerk No July 25 2:21pm Latest Code Status on File Code Status [...] Comments Full Code Order Discussed With: Patient Date Activated Date Inactivated Comments 01/07/2022 8:53 PM 01/13/2022 5:18 PM Date Activated Date Inactivated Comments 01/07/2022 8:53 PM 01/13/2022 5:18 PM Chief Complaint and Reason for Visit Chief Complaint PSA Chief Complaint Admit Date Gastroesophageal reflux disease (GERD) 2024 1:51pm Reason for Visit Admit Date Abdominal pain November 17, 2024 1:51p m Gastroesophageal reflux disease November 1:51pm Chief Complaint Admit Date Gastroesophageal reflux disease (GERD) 2024 1:51pm abdominal pain, elevated ALP November 25, 2024 9:46am E-ORDER November 27, 2024 2:36 pm Chief Complaint Admit Date Gastroesophageal reflux disease (GERD) 2024 1:51pm abdominal pain, elevated ALP November 25, 2024 9:46am E-ORDER November 27, 2024 2:36 pm 1 M FU December 18, 2024 1:3 5pm Chief Complaint Admit Date Gastroesophageal reflux disease (GERD) 2024 1:51pm abdominal pain, elevated ALP November 25, 2024 9:46am E-ORDER November 27, 2024 2:36 pm 1 M FU December 18, 2024 1:3 5pm Bilateral hepatic lobe masses, hx of pro state can December 18, 2024 4:07pm Reason for Visit Admit Date Abdominal pain November 17, 2024 1:51p m Gastroesophageal reflux disease November 1:51pm Abdominal pain December 18, 2024 1:3 5pm Mass of multiple sites of liver December 182024 1:35pm Chief Complaint Admit Date Gastroesophageal reflux disease (GERD) 2024 1:51pm abdominal pain, elevated ALP November 25, 2024 9:46am E-ORDER November 27, 2024 2:36 pm 1 M FU December 18, 2024 1:3 5pm Bilateral hepatic lobe masses, hx of pro state can December 18, 2024 4:07pm HEPATOMEGALY December 30, 2024 1: 08pm Reason for Visit Admit Date Abdominal pain November 17, 2024 1:51p m Gastroesophageal reflux disease November 1:51pm Abdominal pain December 18, 2024 1:3 5pm Mass of multiple sites of liver December 182024 1:35pm Cancer with unknown primary site December 30, 2024 1:08pm Metastasis to liver December 30, 2024 1: 08pm Metastasis to lung December 30, 2024 1: 08pm Prostate cancer December 30, 2024 1: 08pm Additional Source Comments (unrecognized sect ion and content) No Status Records FoundNo Status Records FoundNo Status Records FoundNo Status Records FoundNo Status Records FoundNo Status Records FoundNo Status Records Found INFORMATION SOURCE (unrecogn ized section and content) DATE CREATED AUTHOR 11/06/2017 [facility] DATE CREATED AUTHOR AUTHOR'S ORGANIZ ATION 06/27/2022 [facility] DATE CREATED AUTHOR AUTHOR'S ORGANIZ ATION 03/21/2024 [facility] DATE CREATED AUTHOR AUTHOR'S ORGANIZ ATION 10/22/2024 [facility] DATE CREATED AUTHOR AUTHOR'S ORGANIZ ATION 01/01/2025 [facility] DATE CREATED AUTHOR AUTHOR'S ORGANIZ ATION 01/06/2025 [facility] DATE CREATED AUTHOR AUTHOR'S ORGANIZ ATION 01/13/2025 [facility] Care Team (unrecognized sect ion and content) Care Team Personnel Name: EZEKIEL CARO DO Position: P4 Physician - Primary Care Med Service: Active Provider Member Role: Primary Care Physician Address: Address: [address] [place] [address] Care Team Related Persons Name: SENIA KAMARA Name: SENIA KAMARA Care Team Personnel Name: EZEKIEL CARO DO Position: P4 Physician - Primary Care Member Role: Primary Care Physician Address: Address: [address] [place] [address] Care Team Related Persons Name: SENIA KAMARA Name: SENIA KAMARA Goals (unrecognized section and content) Goals may be documented in a n alternate section Source Comments (unrecognize d section and content) In the event this informatio n is protected by the Federal Confidentiality of Alcohol and Drug Abuse Patient Records regulations: The Federal rules restrict any use of the information to criminally investigate or prosecute any alcohol or drug abuse patient.[facility] the event this information is protected by the Federal Confidentiality of Alcohol and Drug Abuse Patient Records regulations: The Federal rules restrict any use of the information to criminally investigate or prosecute any alcohol or drug abuse patient.[facility]In the event this information is protected by the Federal Confidentiality of Alcohol and Drug Abuse Patient Records regulations: The Federal rules restrict any use of the information to criminally investigate or prosecute any alcohol or drug abuse patient.[facility]In the event this information is protected by the Federal Confidentiality of Alcohol and Drug Abuse Patient Records regulations: The Federal rules restrict any use of the information to criminally investigate or prosecute any alcohol or drug abuse patient.[facility] HospitalIn the event this information is protected by the Federal Confidentiality of Alcohol and Drug Abuse Patient Records regulations: The Federal rules restrict any use of the information to criminally investigate or prosecute any alcohol or drug abuse patient.[facility]In the event this information is protected by the Federal Confidentiality of Alcohol and Drug Abuse Patient Records regulations: The Federal rules restrict any use of the information to criminally investigate or prosecute any alcohol or drug abuse patient.[facility]In the event this information is protected by the Federal Confidentiality of Alcohol and Drug Abuse Patient Records regulations: The Federal rules restrict any use of the information to criminally investigate or prosecute any alcohol or drug abuse patient.[facility]In the event this information is protected by the Federal Confidentiality of Alcohol and Drug Abuse Patient Records regulations: The Federal rules restrict any use of the information to criminally investigate or prosecute any alcohol or drug abuse patient.[facility]In the event this information is protected by the Federal Confidentiality of Alcohol and Drug Abuse Patient Records regulations: The Federal rules restrict any use of the information to criminally investigate or prosecute any alcohol or drug abuse patient.[facility] HospitalIn the event this information is protected by the Federal Confidentiality of Alcohol and Drug Abuse Patient Records regulations: The Federal rules restrict any use of the information to criminally investigate or prosecute any alcohol or drug abuse patient.[facility] HospitalIn the event this information is protected by the Federal Confidentiality of Alcohol and Drug Abuse Patient Records regulations: The Federal rules restrict any use of the information to criminally investigate or prosecute any alcohol or drug abuse patient.[facility] HospitalIn the event this information is protected by the Federal Confidentiality of Alcohol and Drug Abuse Patient Records regulations: The Federal rules restrict any use of the information to criminally investigate or prosecute any alcohol or drug abuse patient.[facility] HospitalIn the event this information is protected by the Federal Confidentiality of Alcohol and Drug Abuse Patient Records regulations: The Federal rules restrict any use of the information to criminally investigate or prosecute any alcohol or drug abuse patient.[facility] HospitalIn the event this information is protected by the Federal Confidentiality of Alcohol and Drug Abuse Patient Records regulations: The Federal rules restrict any use of the information to criminally investigate or prosecute any alcohol or drug abuse patient.[facility] HospitalIn the event this information is protected by the Federal Confidentiality of Alcohol and Drug Abuse Patient Records regulations: The Federal rules restrict any use of the information to criminally investigate or prosecute any alcohol or drug abuse patient.[facility] HospitalIn the event this information is protected by the Federal Confidentiality of Alcohol and Drug Abuse Patient Records regulations: The Federal rules restrict any use of the information to criminally investigate or prosecute any alcohol or drug abuse patient.[facility] HospitalIn the event this information is protected by the Federal Confidentiality of Alcohol and Drug Abuse Patient Records regulations: The Federal rules restrict any use of the information to criminally investigate or prosecute any alcohol or drug abuse patient.[facility] HospitalIn the event this information is protected by the Federal Confidentiality of Alcohol and Drug Abuse Patient Records regulations: The Federal rules restrict any use of the information to criminally investigate or prosecute any alcohol or drug abuse patient.[facility] HospitalIn the event this information is protected by the Federal Confidentiality of Alcohol and Drug Abuse Patient Records regulations: The Federal rules restrict any use of the information to criminally investigate or prosecute any alcohol or drug abuse patient.[facility] HospitalIn the event this information is protected by the Federal Confidentiality of Alcohol and Drug Abuse Patient Records regulations: The Federal rules restrict any use of the information to criminally investigate or prosecute any alcohol or drug abuse patient.[facility] HospitalIn the event this information is protected by the Federal Confidentiality of Alcohol and Drug Abuse Patient Records regulations: The Federal rules restrict any use of the information to criminally investigate or prosecute any alcohol or drug abuse patient.[facility] HospitalIn the event this information is protected by the Federal Confidentiality of Alcohol and Drug Abuse Patient Records regulations: The Federal rules restrict any use of the information to criminally investigate or prosecute any alcohol or drug abuse patient.[facility] HospitalIn the event this information is protected by the Federal Confidentiality of Alcohol and Drug Abuse Patient Records regulations: The Federal rules restrict any use of the information to criminally investigate or prosecute any alcohol or drug abuse patient.[facility] HospitalIn the event this information is protected by the Federal Confidentiality of Alcohol and Drug Abuse Patient Records regulations: The Federal rules restrict any use of the information to criminally investigate or prosecute any alcohol or drug abuse patient.[facility] HospitalIn the event this information is protected by the Federal Confidentiality of Alcohol and Drug Abuse Patient Records regulations: The Federal rules restrict any use of the information to criminally investigate or prosecute any alcohol or drug abuse patient.[facility] HospitalIn the event this information is protected by the Federal Confidentiality of Alcohol and Drug Abuse Patient Records regulations: The Federal rules restrict any use of the information to criminally investigate or prosecute any alcohol or drug abuse patient.[facility] HospitalIn the event this information is protected by the Federal Confidentiality of Alcohol and Drug Abuse Patient Records regulations: The Federal rules restrict any use of the information to criminally investigate or prosecute any alcohol or drug abuse patient.[facility] HospitalIn the event this information is protected by the Federal Confidentiality of Alcohol and Drug Abuse Patient Records regulations: The Federal rules restrict any use of the information to criminally investigate or prosecute any alcohol or drug abuse patient.[facility] HospitalIn the event this information is protected by the Federal Confidentiality of Alcohol and Drug Abuse Patient Records regulations: The Federal rules restrict any use of the information to criminally investigate or prosecute any alcohol or drug abuse patient.[facility] HospitalIn the event this information is protected by the Federal Confidentiality of Alcohol and Drug Abuse Patient Records regulations: The Federal rules restrict any use of the information to criminally investigate or prosecute any alcohol or drug abuse patient.[facility] HospitalIn the event this information is protected by the Federal Confidentiality of Alcohol and Drug Abuse Patient Records regulations: The Federal rules restrict any use of the information to criminally investigate or prosecute any alcohol or drug abuse patient.[facility] HospitalIn the event this information is protected by the Federal Confidentiality of Alcohol and Drug Abuse Patient Records regulations: The Federal rules restrict any use of the information to criminally investigate or prosecute any alcohol or drug abuse patient.[facility] HospitalIn the event this information is protected by the Federal Confidentiality of Alcohol and Drug Abuse Patient Records regulations: The Federal rules restrict any use of the information to criminally investigate or prosecute any alcohol or drug abuse patient.[facility] HospitalIn the event this information is protected by the Federal Confidentiality of Alcohol and Drug Abuse Patient Records regulations: The Federal rules restrict any use of the information to criminally investigate or prosecute any alcohol or drug abuse patient.[facility] HospitalIn the event this information is protected by the Federal Confidentiality of Alcohol and Drug Abuse Patient Records regulations: The Federal rules restrict any use of the information to criminally investigate or prosecute any alcohol or drug abuse patient.[facility] HospitalIn the event this information is protected by the Federal Confidentiality of Alcohol and Drug Abuse Patient Records regulations: The Federal rules restrict any use of the information to criminally investigate or prosecute any alcohol or drug abuse patient.[facility] HospitalIn the event this information is protected by the Federal Confidentiality of Alcohol and Drug Abuse Patient Records regulations: The Federal rules restrict any use of the information to criminally investigate or prosecute any alcohol or drug abuse patient.[facility] HospitalIn the event this information is protected by the Federal Confidentiality of Alcohol and Drug Abuse Patient Records regulations: The Federal rules restrict any use of the information to criminally investigate or prosecute any alcohol or drug abuse patient.[facility] HospitalIn the event this information is protected by the Federal Confidentiality of Alcohol and Drug Abuse Patient Records regulations: The Federal rules restrict any use of the information to criminally investigate or prosecute any alcohol or drug abuse patient.[facility] HospitalIn the event this information is protected by the Federal Confidentiality of Alcohol and Drug Abuse Patient Records regulations: The Federal rules restrict any use of the information to criminally investigate or prosecute any alcohol or drug abuse patient.[facility] HospitalIn the event this information is protected by the Federal Confidentiality of Alcohol and Drug Abuse Patient Records regulations: The Federal rules restrict any use of the information to criminally investigate or prosecute any alcohol or drug abuse patient.[facility] HospitalIn the event this information is protected by the Federal Confidentiality of Alcohol and Drug Abuse Patient Records regulations: The Federal rules restrict any use of the information to criminally investigate or prosecute any alcohol or drug abuse patient.[facility] HospitalIn the event this information is protected by the Federal Confidentiality of Alcohol and Drug Abuse Patient Records regulations: The Federal rules restrict any use of the information to criminally investigate or prosecute any alcohol or drug abuse patient.[facility] HospitalIn the event this information is protected by the Federal Confidentiality of Alcohol and Drug Abuse Patient Records regulations: The Federal rules restrict any use of the information to criminally investigate or prosecute any alcohol or drug abuse patient.[facility] HospitalIn the event this information is protected by the Federal Confidentiality of Alcohol and Drug Abuse Patient Records regulations: The Federal rules restrict any use of the information to criminally investigate or prosecute any alcohol or drug abuse patient.[facility] HospitalIn the event this information is protected by the Federal Confidentiality of Alcohol and Drug Abuse Patient Records regulations: The Federal rules restrict any use of the information to criminally investigate or prosecute any alcohol or drug abuse patient.[facility] HospitalIn the event this information is protected by the Federal Confidentiality of Alcohol and Drug Abuse Patient Records regulations: The Federal rules restrict any use of the information to criminally investigate or prosecute any alcohol or drug abuse patient.[facility] HospitalIn the event this information is protected by the Federal Confidentiality of Alcohol and Drug Abuse Patient Records regulations: The Federal rules restrict any use of the information to criminally investigate or prosecute any alcohol or drug abuse patient.[facility] HospitalIn the event this information is protected by the Federal Confidentiality of Alcohol and Drug Abuse Patient Records regulations: The Federal rules restrict any use of the information to criminally investigate or prosecute any alcohol or drug abuse patient.[facility] HospitalIn the event this information is protected by the Federal Confidentiality of Alcohol and Drug Abuse Patient Records regulations: The Federal rules restrict any use of the information to criminally investigate or prosecute any alcohol or drug abuse patient.[facility] HospitalIn the event this information is protected by the Federal Confidentiality of Alcohol and Drug Abuse Patient Records regulations: The Federal rules restrict any use of the information to criminally investigate or prosecute any alcohol or drug abuse patient.[facility] HospitalIn the event this information is protected by the Federal Confidentiality of Alcohol and Drug Abuse Patient Records regulations: The Federal rules restrict any use of the information to criminally investigate or prosecute any alcohol or drug abuse patient.[facility] HospitalIn the event this information is protected by the Federal Confidentiality of Alcohol and Drug Abuse Patient Records regulations: The Federal rules restrict any use of the information to criminally investigate or prosecute any alcohol or drug abuse patient.[facility] HospitalIn the event this information is protected by the Federal Confidentiality of Alcohol and Drug Abuse Patient Records regulations: The Federal rules restrict any use of the information to criminally investigate or prosecute any alcohol or drug abuse patient.[facility] Reason for Visit (unrecogniz ed section and content) Reason Comments Nurse Visit EKG Specialty Diagnoses / Procedures Referred By Contac t [facility] Diagnoses Encounter for monitoring dofetilide therapy Procedures ECG COMPLETE ECG ROUTINE ECG W/LEAST 12 LDS W/I&R Elayne Edwards, RADHA.RIB PULLER [address] [place] [address] [facility] [address] [place] [address] Referral ID Status Reason Start Date Expiration Date V isits Requested Visits Authorized [id number] Closed Auto-Generate d Referral 12/18/2023 12/17/2024 1 1 Reason Comments ELIQUIS Reason Comments Results PT/INR Reason Onset Date Comments Refill Request 01/23/2022 Reason Comments CARD Hospital Follow Up No new symptoms since getting out of the hospital. HR was 150 once. Reason Comments Patient Update IR level Reason Comments Patient Question Reason Comments Follow Up Reason Comments Results Reason Comments Refill Request Reason Comments Patient Assistance Eliquis patient assi stance for 2022 Reason Onset Date Comments Refill Request 06/06/2022 Reason Comments Patient Update Reason Onset Date Comments Refill Request 12/14/2022 Reason Onset Date Comments Refill Request 12/15/2022 Reason Comments Follow Up I been feeling my h eart beat a few times.Weight gain Reason Comments Orders Reason Comments Nurse Visit Ekg Reason Comments Cardiology Follow Up Reason Comments Refill Request Reason Onset Date Comments Refill Request 12/24/2023 Reason Onset Date Comments Refill Request 01/02/2024 Reason Comments Results labs Reason Onset Date Comments Refill Request 01/18/2024 Reason Comments Follow Up Room 116 mo f/u Reason Comments Results Zio Reason Comments Ciliary Block Glaucoma Folow Up Follow u pPt reports going in an out of A-fib. States episodes are less frequent then before. Specialty Diagnoses / Procedures Referred By Contac t Referred To Contact Diagnoses Paroxysmal atrial fibrillation (HCC) Procedures CONSULT TO ELECTROPHYSIOLOGY OFFICE/OUTPATIENT NEW HIGH MDM 60 MINUTES Elayne Edwards, RADHA.RIB PULLER [address] [place] [address] Dio Anaya MD [address] [place] [address] Referral ID Status Reason Start Date Expiration Date V isits Requested Visits Authorized [id number] Closed PCP Requested Referral 04/23/2024 04/23/2025 1 1 Reason Comments Procedure EP: PVI ablation pro cedure Reason Onset Date Comments Refill Request 07/07/2024 Reason Comments Forms BMS Reason Comments Radiology CT Specialty Diagnoses / Procedures Referred By Kitty t Referred To Contact CT IMAGING Diagnoses Enlarged thoracic aorta Procedures CTA CHEST (GATED) W IVCON CT ANGIOGRAPHY CHEST W/CONTRAST/NONCONTRAST Elayne Edwards, REGULATORY LEAD.RIB PULLER [address] [place] [address] Phone: tel: fax: [place] [phone] Referral ID Status Reason Start Date Expiration Date V isits Requested Visits Authorized [id number] Closed Auto-Generate d Referral 07/09/2024 08/08/2025 1 1 Reason Comments Follow Up Reason Comments Patient Education PVI Reason Comments Follow up Reason Comments Patient Update HR Reason Comments Results iRhythm Reason Comments Appointment Reason Comments Patient Update Redo PVI/Atypical AF L (patient declined to schedule) Reason Comments Radiology US Reason Comments Forms [facility] Care Teams (unrecognized sec tion and content) [employer] S[employer] Grader Relationship Specialty Start Date End Date Ezekiel Caro PCP - General Family Practice 08/04/10 Narendra Britton MD, MD [address] [place], [place] [id number] Physician Radiation Oncology 01/16/18 [employer] Grader Relationship Specialty Start Date End Date Ezekiel Caro PCP - General Family Practice 08/04/10 Narendra Britton MD, [address] [place], [place] [id number] Physician Radiation Oncology 01/16/18 Diamond Sizer And Grader Relationship Specialty Start Date End Date Ezekiel Caro PCP - General Family Practice 08/04/10 Narendra Britton MDMD [address] [place] [address] Physician Radiation Oncology 01/16/18 Diamond Sizer And Grader Relationship Specialty Start Date End Date Ezekiel Caro PCP - General Family Medicine 08/04/10 Narendra Britton MD, [address] [place] [address] Physician Radiation Oncology 01/16/18 Diamond Sizer And Grader Relationship Specialty Start Date End Date Ezekiel Caro PCP - General Family Medicine 08/04/10 Narendra Britton MD, [address] [place] [address] Physician Radiation Oncology 01/16/18 Diamond Sizer And Grader Relationship Specialty Start Date End Date Ezekiel Caro PCP - General Family Medicine 08/04/10 Narendra Britton MD, [address] [place] [address] Physician Radiation Oncology 01/16/18 Diamond Sizer And Grader Relationship Specialty Start Date End Date Ezekiel Caro PCP - General Family Medicine 08/04/10 Narendra Britton MD, [address] [place] [address] Physician Radiation Oncology 01/16/18 Diamond Sizer And Grader Relationship Specialty Start Date End Date Ezekiel Caro DO PCP - General Family Medicine 08/04/10 Narendra Britton MD, [address] [place] [address] Physician Radiation Oncology 01/16/18 Diamond Sizer And Grader Relationship Specialty Start Date End Date Ezekiel Caro DO PCP - General Family Medicine 08/04/10 Narendra Britton MD, [address] [place] [address] Physician Radiation Oncology 01/16/18 Diamond Sizer And Grader Relationship Specialty Start Date End Date Ezekiel Caro DO PCP - General Family Medicine 08/04/10 Narendra Britton MD, [address] [place], [place] [address] [phone] Physician Radiation Oncology 01/16/18 Team Status: Active Member Role Status Dates Dr. Ezekiel Caro DO Family Provider Active Dr. Ezekiel Caro DO Primary Care Provider Active Team Status: Inactive Member Role Status Dates Dr. Ezekiel Caro DO Primary Care Provider Active Dr. Bj Momin MD Attending Provider, Referr ing Provider Active [employer] Grader Relationship Specialty Start Date End Date Ezekiel Caro DO PCP - General Family Medicine 08/04/10 Narendra Britton MD, [address] [place] [address] Physician Radiation Oncology 01/16/18 Diamond Sizer And Grader Relationship Specialty Start Date End Date Ezekiel Caro DO PCP - General Family Medicine 08/04/10 Narendra Britton MD, [address] [place] [address] Physician Radiation Oncology 01/16/18 Diamond Sizer And Grader Relationship Specialty Start Date End Date Ezekiel Caro DO PCP - General Family Medicine 08/04/10 Narendra Britton MD, [address] [place] [address] Physician Radiation Oncology 01/16/18 Diamond Sizer And Grader Relationship Specialty Start Date End Date Ezekiel Caro DO PCP - General Family Medicine 08/04/10 Narendra Britton MD, [address] [place], [place] [address] Physician Radiation Oncology 01/16/18 Team Status: Inactive Member Role Status Dates Dr. Ezekiel Caro DO Primary Care Provider Active Dr. Bj Momin MD Attending Provider, Referr ing Provider Active Dr. Deysi Rodriguez MD Other Provider Active [employer] Grader Relationship Specialty Start Date End Date Ezekiel Caro DO PCP - General Family Medicine 08/04/10 Narendra Britton MD [address] [place] [address] Physician Radiation Oncology 01/16/18 Diamond Sizer And Grader Relationship Specialty Start Date End Date Ezekiel Caro DO PCP - General Family Medicine 08/04/10 Narendra Britton MD [address] [place] [address] Physician Radiation Oncology 01/16/18 Diamond Sizer And Grader Relationship Specialty Start Date End Date Ezekiel Caro DO PCP - General Family Medicine 08/04/10 Narendra Britton MD [address] [place] [address] Physician Radiation Oncology 01/16/18 Diamond Sizer And Grader Relationship Specialty Start Date End Date Ezekiel Caro DO PCP - General Family Medicine 08/04/10 Narendra Britton MD [address] [place] [address] Physician Radiation Oncology 01/16/18 Diamond Sizer And Grader Relationship Specialty Start Date End Date Ezekiel Caro DO PCP - General Family Medicine 08/04/10 Narendra Britton MD [address] [place] [address] Physician Radiation Oncology 01/16/18 Diamond Sizer And Grader Relationship Specialty Start Date End Date Ezekiel Caro DO PCP - General Family Medicine 08/04/10 Narendra Britton MD [address] [place] [address] Physician Radiation Oncology 01/16/18 Diamond Sizer And Grader Relationship Specialty Start Date End Date Ezekiel Caro DO PCP - General Family Medicine 08/04/10 Narendra Britton MD [address] [place] [address] Physician Radiation Oncology 01/16/18 Diamond Sizer And Grader Relationship Specialty Start Date End Date Ezekiel Crao DO PCP - General Family Medicine 08/04/10 Narendra Britton MD [address] [place] [address] Physician Radiation Oncology 01/16/18 Diamond Sizer And Grader Relationship Specialty Start Date End Date Ezekiel Caro DO PCP - General Family Medicine 08/04/10 Narendra Britton MD [address] [place] [address] Physician Radiation Oncology 01/16/18 Diamond Sizer And Grader Relationship Specialty Start Date End Date Ezekiel Caro DO PCP - General Family Medicine 08/04/10 Narendra Britton MD [address] [place] [address] Physician Radiation Oncology 01/16/18 Diamond Sizer And Grader Relationship Specialty Start Date End Date Ezekiel Caro DO PCP - General Family Medicine 08/04/10 Narendra Britton MD [address] [place] [address] Physician Radiation Oncology 01/16/18 Diamond Sizer And Grader Relationship Specialty Start Date End Date Ezekiel Caro DO PCP - General Family Medicine 08/04/10 Narendra Britton MD [address] [place], [place] [address] Physician Radiation Oncology 01/16/18 Team Status: Inactive Member Role Status Dates Dr. Ezekiel Caro DO Primary Care Provider Active Start: April 21, 2024 End: April 21, 2024 Dr. Bj Momin MD Attending Provider Active Start: April 21, 2024 End: April 21, 2024 Dr. Bj Momin MD Referring Provider Active Start: April 21, 2024 End: April 21, 2024 Team Status: Inactive Member Role Status Dates Dr. Ezekiel Caro DO Primary Care Provider Active Start: July 21, 2024 End: July 21, 2024 Dr. Bj Momin MD Attending Provider Active Start: July 21, 2024 End: July 21, 2024 Dr. Bj Momin MD Referring Provider Active Start: July 21, 2024 End: July 21, 2024 Diamond Sizer And Grader Relationship Specialty Start Date End Date Ezekiel Caro DO PCP - General Family Medicine 08/04/10 Narendra Britton MD [address] [place], [place] [address] Physician Radiation Oncology 01/16/18 Diamond Sizer And Grader Relationship Specialty Start Date End Date Ezekiel Caro DO PCP - General Family Medicine 08/04/10 Narendra Britton MD [address] [place], [place] [address] Physician Radiation Oncology 01/16/18 Diamond Sizer And Grader Relationship Specialty Start Date End Date Ezekiel Caro DO PCP - General Family Medicine 08/04/10 Narendra Britton MD [address] [place] [address] Physician Radiation Oncology 01/16/18 Diamond Sizer And Grader Relationship Specialty Start Date End Date Ezekiel Caro DO PCP - General Family Medicine 08/04/10 Narendra Britton MD [address] [place] [address] Physician Radiation Oncology 01/16/18 Diamond Sizer And Grader Relationship Specialty Start Date End Date Narendra Britton MD [address] [place] [address] Physician Radiation Oncology 01/16/18 Diamond Sizer And Grader Relationship Specialty Start Date End Date Narendra Britton MD [address] [place] [address] Physician Radiation Oncology 01/16/18 Diamond Sizer And Grader Relationship Specialty Start Date End Date Narendra Britton MD [address] [place] [address] Physician Radiation Oncology 01/16/18 Team Status: Active Member Role/Relationship Status Dates Dr. Ezekiel Caro DO Family Provider Active Dr. Ezekiel Caro DO Primary Care Provider Active Team Status: Inactive Member Role/Relationship Status Dates Dr. Ezekiel Caro DO Primary Care Provider Active Start: July 21, 2024 End: July 21, 2024 Dr. Bj Momin MD Attending Provider Active Start: July 21, 2024 End: July 21, 2024 Dr. Bj Momin MD Referring Provider Active Start: July 21, 2024 End: July 21, 2024 Team Status: Inactive Member Role/Relationship Status Dates Dr. Ezekiel Caro DO Primary Care Provider Active Start: November 17, 2024 End: November 17, 2024 Dr. Ezekiel Caro DO Referring Provider Active Start: November 17, 2024 End: November 17, 2024 PATTI Spencer Attending Provider Active S tart: November 17, 2024 End: November 17, 2024 Diamond Sizer And Grader Relationship Specialty Start Date End Date Narendra Britton MD [address] [place] [address] Physician Radiation Oncology 01/16/18 Diamond Sizer And Grader Relationship Specialty Start Date End Date Narendra Britton MD [address] [place] [address] Physician Radiation Oncology 01/16/18 Team Status: Active Member Role/Relationship Status Dates Dr. Ezekiel Caro DO Primary Care Provider Active Team Status: Inactive Member Role/Relationship Status Dates Dr. Ezekiel Caro DO Primary Care Provider Active Start: November 17, 2024 End: November 17, 2024 Dr. Ezekiel Caro DO Referring Provider Active Start: November 17, 2024 End: November 17, 2024 PATTI Spencer Attending Provider Active S tart: November 17, 2024 End: November 17, 2024 Team Status: Inactive Member Role/Relationship Status Dates Dr. Ezekiel Caro DO Primary Care Provider Active Start: November 25, 2024 End: November 25, 2024 PATTI Spencer Attending Provider Active S tart: November 25, 2024 End: November 25, 2024 PATTI Spencer Referring Provider Active S tart: November 25, 2024 End: November 25, 2024 Team Status: Active Member Role/Relationship Status Dates Dr. Ezekiel Caro DO Primary Care Provider Active Start: November 27, 2024 PATTI Spencer Attending Provider Active S tart: November 27, 2024 PATTI Spencer Referring Provider Active S tart: November 27, 2024 Team Status: Inactive Member Role/Relationship Status Dates Dr. Ezekiel Caro DO Primary Care Provider Active Start: November 27, 2024 End: November 27, 2024 PATTI Spencer Attending Provider Active S tart: November 27, 2024 End: November 27, 2024 PATTI Spencer Referring Provider Active S tart: November 27, 2024 End: November 27, 2024 Diamond Sizer And Grader Relationship Specialty Start Date End Date Narendra Britton MD [address] [place], [place] [id number] Physician Radiation Oncology 01/16/18 Team Status: Inactive Member Role/Relationship Status Dates Dr. Ezekiel Caro DO Primary Care Provider Active Start: December 18, 2024 End: December 18, 2024 Dr. Ezekiel Caro DO Referring Provider Active Start: December 18, 2024 End: December 18, 2024 PATTI Spencer Attending Provider Active S tart: December 18, 2024 End: December 18, 2024 Team Status: Inactive Member Role/Relationship Status Dates Dr. Ezekiel Caro DO Primary Care Provider Active Start: December 18, 2024 End: December 18, 2024 PATTI Spencer Attending Provider Active S tart: December 18, 2024 End: December 18, 2024 PATTI Spencer Referring Provider Active S tart: December 18, 2024 End: December 18, 2024 Diamond Sizer And Grader Relationship Specialty Start Date End Date Caleb Mccurdy DO [address] [place] [address] PCP - General Family Medicine 12/23/24 Narendra Britton MD [address] [place] [address] Physician Radiation Oncology 01/16/18 Diamond Sizer And Grader Relationship Specialty Start Date End Date Caleb Mccurdy DO [address] [place] [address] PCP - General Family Medicine 12/23/24 Narendra Britton MD [address] [facility] [place] [address] Physician Radiation Oncology 01/16/18 Diamond Sizer And Grader Relationship Specialty Start Date End Date Caleb Mccurdy DO [address] [place] [id number] PCP - General Family Medicine 12/23/24 Narendra Britton MD [address] [facility] [place] [address] Physician Radiation Oncology 01/16/18 Team Status: Active Member Role/Relationship Status Dates Dr. Caleb Mccurdy DO Primary Care Provider Active Team Status: Inactive Member Role/Relationship Status Dates PATTI Spencer Referring Provider Active S tart: December 30, 2024 End: December 30, 2024 Dr. Trena Esteban MD Attending Provider Active Start: December 30, 2024 End: December 30, 2024 Dr. Caleb Mccurdy DO Primary Care Provider Active Start: December 30, 2024 End: December 30, 2024 Team Status: Active Member Role/Relationship Status Dates Dr. Caleb Mccurdy DO Primary Care Provider Active Start: December 30, 2024 Dr. Trena Esteban MD Attending Provider Active Start: December 30, 2024 Dr. Trena Esteban MD Referring Provider Active Start: December 30, 2024 Diamond Sizer And Grader Relationship Specialty Start Date End Date Caleb Mccurdy DO [address] [place] [id number] PCP - General Family Medicine 12/23/24 Narendra Britton MD [address] [place] [address] Physician Radiation Oncology 01/16/18 Diamond Sizer And Grader Relationship Specialty Start Date End Date Caleb Mccurdy DO [address] [facility] [place] [address] PCP - General Family Medicine 12/23/24 Narendra Britton MD [address] [place] [address] Physician Radiation Oncology 01/16/18 FOR RECORDS PERTAINING [...] BE BASED ON THE PRIMARY CLINICAL RECORDS. [employer] [facility]. provides no warranty or guarantee of the accuracy or completeness of information in this document.
--- NOTE | 2025-01-14 07:24 | PCM.HP.STD ---
HPI - General General Date of Service: 01/14/25 Chief Complaint: GERD and abdominal pain with an abnormal Ctscan HPI Narrative ANYA ST, is a 74 M who presents concerns for GERD and epigastric abdominal pain. Per PCP office note, his medication was changed from famotidine 40mg twice to pantoprazole 40mg twice daily due to no improvement in symptoms. He denies relief of symptoms with pantoprazole either. He states that there is no correlation between foods and timing of abdominal pain. He denies radiation of pain, nausea, and vomiting. Discussed car plan with him. -schedule bidirectional endoscopies 11.25.24 US abd - Suspicious masses noted on both lobes of the liver, concerning for cancer. I attempted to call him. Left a VM for him to call office back. Please let him know that I placed multiple orders for blood to be drawn and for him to have a CT of his chest/abd/pelvis with and without contrast to investigate these masses. Pending blood test results he will need a CT-guided liver biopsy. His chart was reviewed by Mingo and Eulalia of the [facility]. 11.27.24 Contact - Notified him of US findings and the need for further blood and imaging testing to assist with diagnosis. Advised him that I did speak with the oncologists available here at [facility]. He responded,well, I saw the prostate cancer doctor, Merrill, before. I told him that is a urologist who specializes in that organ and that he is not able to help guide care with his liver. He is in agreement to plan of thorough investigation starting with blood tests and will be waiting to hear from central scheduling for the CT. He reports that the esomeprazole and famotidine are not helping his dry cough at all. 12.18.24 OV Presents with his son, states confusion as to why he's here now when his CT isn't scheduled until after 4p. [facility] staff mentioned that he has questions regarding US findings and possible treatments available for whatever the liver mass may be. He states that he is concerned over being to sit still long enough for thte CT to get a diagnostic image as he has a persistent nonproductive cough. He was give benzonatate 100mg and told to take 2 caps three times daily as needed, as well as fluticasone/salmeterol inhaler to take twice daily. I advised him that if doesn't think he can take his medicine AND lay still, having the CT may not give us the most optimal diagnostic image. He states, I just wish someone could stop this dent coughing. He denies having any other new complaints. 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 Murmur, heart IBS (irritable bowel syndrome) High blood pressure Cancer Atrial fibrillation Home Medications ?Medication ?Instructions ?Recorded ?Last Taken ?Type finasteride 5 mg tablet 5 mg PO DAILY 07/26/19 01/13/25 History lorazepam 0.5 mg tablet 0.5 mg PO DAILY PRN PRN Anxiety 07/26/19 Unknown History losartan 100 mg tablet 100 mg PO DAILY 07/26/19 01/12/25 History tamsulosin 0.4 mg capsule 0.4 mg PO DAILY 07/26/19 01/13/25 History apixaban 5 mg tablet (Eliquis) 5 mg PO BID 11/17/24 01/09/25 History fluticasone furoate 100 1 inh inhalation QHS 11/17/24 Unknown History mcg-vilanterol 25 mcg/dose inhalation powder (Breo Ellipta) dofetilide 125 mcg capsule 250 mcg PO BID 12/30/24 01/13/25 History albuterol sulfate 90 mcg/actuation 1 - 2 puff inhalation Q4H PRN 01/09/25 Unknown History aerosol inhaler wheezing Allergy/AdvReac Type Severity Reaction Status Date / Time No Known Allergies Allergy Verified 01/14/25 07:14 Family History Father Alcoholism Brother Cancer Prostate Aunt Cancer Grandmother Dementia Surgical History History of cardiac catheterization History of cardiac ablation for atrial fibrillation History of tonsillectomy and adenoidectomy History of repair of hiatal hernia History of esophagogastroduodenoscopy (EGD) Hx of colonoscopy History of surgery on arm Hx of vasectomy History of appendectomy Social History Smoking Status: Never smoker alcohol intake: current alcohol intake frequency: holidays/special occasions only Alcohol type: wine substance use type: does not use ROS Constitutional Constitutional: Denies fatigue, fever(s), poor appetite, weight gain or weight loss Gastrointestinal Gastrointestinal: Denies belching, bloating, change in bowel habits, change in stool character, chewing difficulty, coffee ground emesis, constipation, cramping, diarrhea, dyspepsia, dysphagia, early satiety, excessive flatus, fecal incontinence, heartburn, hematemesis, hematochezia, hemorrhoids, loose stools, melena, nausea, odynophagia, rectal bleeding, tenesmus, vomiting or weight changes Vital Signs Vital Signs Vital Signs: 01/14/25 07:17 01/14/25 07:17 Temperature 97.0 F L Temperature Source Temporal Pulse Rate 75 Respiratory Rate 18 Respiratory Pattern Normal Blood Pressure 130/78 H Blood Pressure Mean 95 Blood Pressure Source Monitor Blood Pressure Position Semi-Fowlers Blood Pressure Location Left Arm Pulse Ox 98 Oxygen Delivery Method Room Air Weight Weight: 242 lb 8.136 oz Body Mass Index (BMI) 33.8 Physical Exam Const alert, oriented x3, no apparent distress and healthy appearing General Appearance: cooperative GI normal to inspection, nondistended, normoactive bowel sounds, soft to palpation, non-tender and non-distended Percussion: normal to percussion Rectal Exam: deferred Assessment & Plan Assessment/Plan (1) Mass of multiple sites of liver: (2) Abdominal pain: QUALIFIERS: Abdominal location: epigastric Qualified Code(s): R10.13 - Epigastric pain PLAN: Assessment and Plan Assessment and Plan (1) Mass of multiple sites of liver: Status: Acute (2) Abdominal pain: Status: Acute Qualifiers: Abdominal location: epigastric Qualified Code(s): R10.13 - Epigastric pain Plan ANYA ST, is a 74 M who presents to the office today for FU. Discussed care plan with him and son, Kj, present for exam. If unable to reach Anya tomorrow with CT results, OK to call Kj and relay information. Same plans as previous.
[2025-01-14] MEDS: Lactated Ringers 1,000 ML 15 ML IV (07:26)
--- NOTE | 2025-01-14 07:36 | PCM.PRE.AN2 ---
ASA Classification* ASA Classification ASA Classification: 4 (HTN, GERD, Afib, prostate, liver, and lung cancer, COPD/Asthma, BRENDA. We will do a duoneb for the patient preoperatively ) Assessment & Plan Anesthesia* Anesthesia Assessment Anesthesia Assessment: Discussed sedation and/or anesthesia options, risks, benefits, and alternatives with patient/parents/legal guardian/POA. Questions invited. The patient/parents/legal guardian/POA seems to understand and agrees to proceed with anesthesia plan. Reviewed the physical assessment, medical history, allergy history and patient home medications list prior to surgery/procedure/anesthetic and documented any changes. Performed airway and anesthesia risk assessments. Anesthesia Type Anesthesia Type: MAC History Source History Obtained from:: Patient and Chart Anesthesia Focused Assessment* Temperature: 97.0 F Pulse Rate: 75 Blood Pressure: 130/78 Respiratory Rate: 18 Pulse Ox: 98 Oxygen Delivery Method: Room Air Airway Assessment Mouth opens: >3 cm Mallampati Score: III Neck Range of motion (ROM): Full ROM Labs Anesthesia Preop lab: CBC WBC 6.5 K/mm3 (4.4-11.0) 01/06/25 09:22 01/06/25 RBC 4.16 M/mm3 (4.6-6.2) L 01/06/25 09:22 01/06/25 Hgb 12.4 g/dL (13.0-16.5) L 01/06/25 09:22 01/06/25 Hct 38.4 % (40-54) L 01/06/25 09:22 01/06/25 Plt Count 274 K/mm3 (150-450) 01/06/25 09:22 01/06/25 CHEMISTRY Potassium 4.4 mmol/L (3.3-5.1) 12/30/24 14:52 12/30/24 Sodium 139 mmol/L (133-145) 12/30/24 14:52 12/30/24 Phosphorus 2.5 mg/dL (2.5-4.9) 09/19/23 09:29 09/19/23 BUN 20 mg/dL (4-19) H 12/30/24 14:52 12/30/24 Creatinine 1.15 mg/dL (0.70-1.20) 12/30/24 14:52 12/30/24 Glucose 106 mg/dL (70-99) H 12/30/24 14:52 12/30/24 COAG PT 12.8 SECONDS (11.7-14.9) 01/06/25 09:21 01/06/25 Pre-Assessment Diagnosis/Proposed Procedure Planned Operative Procedure(s): CSCOPE EGD Anesthesia History 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 When Was Last Pacemaker Check QUESTION #4 FULL TEXT: You/Your Family Experience fever (hyperthermia) with Anesthesia Last Oral Intake Last Oral intake: Last Oral Intake NPO since 05:00 01/14/25 07:17 Meds taken in AM with sips of No 01/14/25 07:17 water? Meds patient instructed to take am of surgery PONV PONV - vice president of marketing: PONV - vice president of marketing Female No 01/09/25 15:01 HX of Motion Sickness No 01/09/25 15:01 HX of N/V After Surgery No 01/09/25 15:01 Non-Smoker Yes 01/09/25 15:01 Duration of Surgery greater No 01/09/25 15:01 than 60 minutes Number of Risk Factors 1 01/09/25 15:01 PONV Score Low Risk 01/09/25 15:01 Height & Weight Height & Weight: Anesthesia: Height & Weight Height 5 ft 11 in 01/14/25 07:17 Weight: 110 kg 01/14/25 07:17 Body Mass Index (BMI) 33.8 01/14/25 07:17 Respiratory Assessment Respiratory Assessment - vice president of marketing: Respiratory Tract Infection Hx - vice president of marketing Hx Respiratory Tract Infection No 01/09/25 15:01 STOP Sleep Apnea STOP Sleep Apnea - vice president of marketing: STOP Sleep Apnea - vice president of marketing Hx Hypertension Yes: CONTROLLED WITH MED AT 01/09/25 15:01 THIS TIME Hx Sleep Apnea No 01/09/25 15:01 CPAP BIPAP Do you snore loudly (louder No 01/09/25 15:01 than talking or can be heard Do you often feel tired/ Yes 01/09/25 15:01 fatigued/ sleepy during daytime? Has anyone observed you stop No 01/09/25 15:01 breathing during sleep? STOP Results Positive 01/09/25 15:01 QUESTION #5 FULL TEXT : Do you snore loudly (louder than talking or can be heard through closed doors)? Tobacco Use History Tobacco Use History - vice president of marketing: Tobacco Use History - vice president of marketing Tobacco Use Smoking Status Never smoker 01/09/25 15:01 Hx Tobacco Use No 01/09/25 15:01 Years Smoking Packs Smoked per Day Smoking Cessation Date was within the last 15 years Hx Smoking Cessation Date Hx Smoking Cessation Counseling Hematologic Medial History Hematologic Hx - vice president of marketing: Hematologic Medical Hx - clinical documentation consultant Hx of Blood Transfusion No 01/09/25 15:01 Hx of Transfusion in last 3 No 01/09/25 15:01 Months Date of Last Transfusion (if within last 3 months) Ever experience any problems No 01/09/25 15:01 with transfusion(s)? Specify any problems Hx of Preganancy in last 3 N/A 01/09/25 15:01 Months Nurse Filling Out Transfusion DSCHRIBER 01/09/25 15:01 & Questions: Date: 01/09/25 01/09/25 15:01 Time: 15:03 01/09/25 15:01 Patient unable to answer at this time (ie. confused, unrespo /Reproduction History /Reproductive History - vice president of marketing: /Reproductive Hx- vice president of marketing Hx Now No 01/09/25 15:01 Gestational Age (in weeks): EDC: Hx Hx Para Hx Section SAB No 01/09/25 15:01 Active Medications Active Medications: Current Medications Generic Name Dose Route Start Last Admin Trade Name Freq PRN Reason Stop Dose Admin Lactated Ringer's 1,000 mls @ 15 mls/hr 01/14/25 07:00 01/14/25 07:26 IV 15 mls/hr .Q48H ZHANNA Administration PFSH Medical History Wears hearing aid Wears partial dentures Wears glasses Alcohol use Back pain Radiation burn Gastric reflux Non-smoker Chronic cough Shortness of breath on exertion History of echocardiogram History of stress test Cardiology follow-up encounter Prostate cancer 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 Murmur, heart IBS (irritable bowel syndrome) High blood pressure Cancer Atrial fibrillation Home Medications ?Medication ?Instructions ?Recorded ?Last Taken ?Type finasteride 5 mg tablet 5 mg PO DAILY 07/26/19 01/13/25 History lorazepam 0.5 mg tablet 0.5 mg PO DAILY PRN PRN Anxiety 07/26/19 Unknown History losartan 100 mg tablet 100 mg PO DAILY 07/26/19 01/12/25 History tamsulosin 0.4 mg capsule 0.4 mg PO DAILY 07/26/19 01/13/25 History apixaban 5 mg tablet (Eliquis) 5 mg PO BID 11/17/24 01/09/25 History fluticasone furoate 100 1 inh inhalation QHS 11/17/24 Unknown History mcg-vilanterol 25 mcg/dose inhalation powder (Breo Ellipta) dofetilide 125 mcg capsule 250 mcg PO BID 12/30/24 01/13/25 History albuterol sulfate 90 mcg/actuation 1 - 2 puff inhalation Q4H PRN 01/09/25 Unknown History aerosol inhaler wheezing Allergy/AdvReac Type Severity Reaction Status Date / Time No Known Allergies Allergy Verified 01/14/25 07:14 Family History Father Alcoholism Brother Cancer Prostate Aunt Cancer Grandmother Dementia Surgical History History of cardiac catheterization History of cardiac ablation for atrial fibrillation History of tonsillectomy and adenoidectomy History of repair of hiatal hernia History of esophagogastroduodenoscopy (EGD) Hx of colonoscopy History of surgery on arm Hx of vasectomy History of appendectomy Social History Smoking Status: Never smoker alcohol intake: current alcohol intake frequency: holidays/special occasions only Alcohol type: wine substance use type: does not use Review of Systems (Anesthesia) ROS Narrative System reviewed and no additional complaints, except as documented. Physical Exam Const alert, oriented x3 and average body habitus Resp normal air movement and clear to auscultation bilaterally Effort and Inspection: decreased respiratory effort Cardio regular rate, regular rhythm and no murmurs
--- NOTE | 2025-01-14 07:45 | COLBX_PTH ---
PATIENT: ANYA ST LOC: [facility] U#:[id number] AGE/SX: 74/M ROOM: RE01/14/[address]: Dr. Howie Riley DO : 1950 BED: DIS: 01/14/2025 SPEC #: [id number] RECD: 01/14/25 09:52 STATUS: WILBERT REPedro #: [id number] ADITHYA: 01/14/25 07:[address]: Howie Riley DEPT: SURGICAL PATHOLOGY RECD BY: Javan Serna ENTERED: 01/14/25 10:27 SP TYPE: COLON BX OTHR DR: Dr. Caleb Mccurdy, DO Dr. Caleb Desai MD Tissues: A - Gastric mucous membrane B - Esophagus, NOS C - COLON BIOPSY D - Sigmoid colon biopsy E - Rectum, NOS Procedures: Immunohistochemical Stains Surgery Specimen Level IV HEADER OPERATION: Colonoscopy with polypectomy, EGD with biopsy PRE-OP DIAGNOSIS: Mass of multiple sites of liver, abdominal pain TISSUE SUBMITTED: A- Gastric body biopsy, B- Distal esophagus biopsy, C- Hepatic flexure polyp x3, D- Sigmoid polyp, E- Rectum polyp MICROSCOPIC DIAGNOSIS A. Gastric body, biopsy: - Oxyntic mucosa with chronic gastritis. - IHC negative for H. pylori organisms. B. Distal esophagus, biopsy: - Squamous mucosa with reactive changes. - Columnar mucosa negative for goblet cell metaplasia. C. Hepatic flexure, polyp, biopsy: - Tubulovillous adenoma, multiple fragments. D. Sigmoid colon, polyp, biopsy: - Tubulovillous adenoma. E. Rectum, polyp, biopsy: - Tubulovillous adenoma, multiple fragments. MICROSCOPIC DESCRIPTION Slides are reviewed. All matched controls reacted appropriately. These tests were developed and their performance characteristics determined by [facility]. They may not have been cleared or approved by the U.[place]. Food and Drug Administration. The FDA has determined that such clearance or approval is not necessary. The above immunohistochemical/dualISH markers are reviewed by the Pathologist. GROSS DESCRIPTION A. Received in fixative is one container labeled with the patient's name and designated Gastric body biopsy. The specimen consists of four irregular fragments of light biswas soft tissue that measure 0.2 to 0.4 cm. The specimen is totally submitted in one cassette. B. Received in fixative is one container labeled with the patient's name and designated Distal esophagus biopsy. The specimen consists of one irregular fragment of light biswas soft tissue that measures 0.3 cm. The specimen is totally submitted in one cassette. C. Received in fixative is one container labeled with the patient's name and designated Hepatic flexure polyp x3. The specimen consists of multiple irregular fragments of light biswas soft tissue that in aggregate measure 2 x 1 x 0.1 cm. The specimen is totally submitted in one cassette. D. Received in fixative is one container labeled with the patient's name and designated Sigmoid polyp. The specimen consists of a 0.5 x 0.5 x 0.3 cm biswas-red polypoid tissue fragment. The resection margin is inked black. The specimen is totally submitted in one cassette. E. Received in fixative is one container labeled with the patient's name and designated Rectum polyp. The specimen consists of multiple irregular fragments of light biswas soft tissue that in aggregate measure 1.4 x 0.7 x 0.2 cm. The specimen is totally submitted in one cassette. MI 01/14/2025 CPT:47062s0,27745
--- NOTE | 2025-01-14 08:39 | OP.EGD_ITS ---
Patient Name: Viraj Kamara Procedure Date: 01/14/2025 7:44 AM Date of : 1950 Age: 74 Procedure: Upper GI endoscopy Indications: Abnormal CT of the GI tract Providers: DO Ashish Dias MD: Dre Coles Medicines: Monitored Anesthesia Care Patient Profile: This is a 74 year old male. Refer to note in patient chart for documentation of history and physical. Patient has symptoms. Complications: No immediate complications. Procedure: Pre-Anesthesia Assessment: - Prior to the procedure, a History and Physical was performed, and patient medications and allergies were reviewed. The patient is competent. The risks and benefits of the procedure and the sedation options and risks were discussed with the patient. All questions were answered and informed consent was obtained. Patient identification and proposed procedure were verified by the physician in the pre-procedure area. Mental Status Examination: alert and oriented. Airway Examination: normal oropharyngeal airway and neck mobility. Respiratory Examination: clear to auscultation. CV Examination: normal. Prophylactic Antibiotics: The patient does not require prophylactic antibiotics. Prior Anticoagulants: The patient has taken no anticoagulant or antiplatelet agents except for NSAID medication. ASA Grade Assessment: II - A patient with mild systemic disease. After reviewing the risks and benefits, the patient was deemed in satisfactory condition to undergo the procedure. The anesthesia plan was to use monitored anesthesia care (MAC). Immediately prior to administration of medications, the patient was re-assessed for adequacy to receive sedatives. The heart rate, respiratory rate, oxygen saturations, blood pressure, adequacy of pulmonary ventilation, and response to care were monitored throughout the procedure. The physical status of the patient was re-assessed after the procedure. After obtaining informed consent, the endoscope was passed under direct vision. Throughout the procedure, the patient's blood pressure, pulse, and oxygen saturations were monitored continuously. The pediatric colonoscope was introduced through the mouth, and advanced to the fourth part of the duodenum. Small bowel enteroscopy was deemed necessary. The upper GI endoscopy was accomplished without difficulty. The patient tolerated the procedure well. Scope In: 8:06:34 AM Scope Withdrawal Time 0 hours 0 minutes 2 seconds Scope Out: 8:12:00 AM Total Procedure Duration Time 0 hours 5 minutes 26 seconds Findings: The Z-line was irregular and was found 40 cm from the incisors. Localized mild inflammation characterized by erosions was found in the gastric body. Biopsies were taken with a cold forceps for histology. Verification of patient identification for the specimen was done. Estimated blood loss was minimal. Biopsies were taken with a cold forceps for Helicobacter pylori testing. Verification of patient identification for the specimen was done. Estimated blood loss was minimal. The examined duodenum was normal. Impression: - Z-line irregular, 40 cm from the incisors. - Chronic gastritis. Biopsied. - Normal examined duodenum. Recommendation: - Discharge patient to home. - Resume previous diet. - Continue present medications. - Await pathology results. Procedure Code(s): --- Professional --- 35000, Small intestinal endoscopy, enteroscopy beyond second portion of duodenum, not including ileum; with biopsy, single or multiple CPT copyright 2021 [employer]. All rights reserved. The codes documented in this report are preliminary and upon supervisor water treatment plant review may be revised to meet current compliance requirements. Howie Riley DO 01/14/2025 8:39:10 AM This report has been signed electronically. Number of Addenda: 0 Note Initiated On: 01/14/2025 7:44 AM
--- NOTE | 2025-01-14 08:40 | OP.PROVAT_ITS ---
01/14/2025 Dre Coles [address] [place] [address] Re : Upper GI endoscopy procedure for [facility] Dear Dr. Coles This procedure was performed on Tuesday, January 14, 2025. My impressions and recommendations are as follows: Impressions : - Z-line irregular, 40 cm from the incisors. - Chronic gastritis. Biopsied. - Normal examined duodenum. Recommendations : - Discharge patient to home. - Resume previous diet. - Continue present medications. - Await pathology results. My findings are described in the full procedure note, which is enclosed. If I can be of further assistance, please feel free to contact me at . Sincerely, Howie Riley, 01/14/2025 8:39:10 AM This report has been signed electronically.
--- NOTE | 2025-01-14 08:42 | OP.COLON_ITS ---
Patient Name: Viraj Kamara Procedure Date: 01/14/2025 8:12 AM Date of : 1950 Age: 74 Procedure: Colonoscopy Indications: Abnormal CT of the GI tract Providers: Howie Riley DO Referring MD: Dre Coles Medicines: Monitored Anesthesia Care Patient Profile: This is a 74 year old male. Refer to note in patient chart for documentation of history and physical. Patient has symptoms. Last Colonoscopy: several years ago. Complications: No immediate complications. Procedure: Pre-Anesthesia Assessment: - Prior to the procedure, a History and Physical was performed, and patient medications and allergies were reviewed. The patient is competent. The risks and benefits of the procedure and the sedation options and risks were discussed with the patient. All questions were answered and informed consent was obtained. Patient identification and proposed procedure were verified by the physician in the pre-procedure area. Mental Status Examination: alert and oriented. Airway Examination: normal oropharyngeal airway and neck mobility. Respiratory Examination: clear to auscultation. CV Examination: normal. Prophylactic Antibiotics: The patient does not require prophylactic antibiotics. Prior Anticoagulants: The patient has taken no anticoagulant or antiplatelet agents except for NSAID medication. ASA Grade Assessment: II - A patient with mild systemic disease. After reviewing the risks and benefits, the patient was deemed in satisfactory condition to undergo the procedure. The anesthesia plan was to use monitored anesthesia care (MAC). Immediately prior to administration of medications, the patient was re-assessed for adequacy to receive sedatives. The heart rate, respiratory rate, oxygen saturations, blood pressure, adequacy of pulmonary ventilation, and response to care were monitored throughout the procedure. The physical status of the patient was re-assessed after the procedure. After I obtained informed consent, the scope was passed under direct vision. Throughout the procedure, the patient's blood pressure, pulse, and oxygen saturations were monitored continuously. The pediatric colonoscope was introduced through the anus and advanced to the cecum, identified by appendiceal orifice and ileocecal valve. The colonoscopy was performed without difficulty. The patient tolerated the procedure well. The quality of the bowel preparation was adequate. The ileocecal valve, appendiceal orifice, and rectum were photographed. Scope In: 8:13:27 AM Scope Withdrawal Time 0 hours 15 minutes 35 seconds Scope Out: 8:33:51 AM Total Procedure Duration Time 0 hours 20 minutes 24 seconds Findings: The perianal and digital rectal examinations were normal. A few small-mouthed diverticula were found in the recto-sigmoid colon, sigmoid colon and transverse colon. Five polyps were found in the rectum, sigmoid colon and hepatic flexure. The polyps were 10 mm in size. These polyps were removed with a hot snare. Resection and retrieval were complete. Verification of patient identification for the specimen was done. Estimated blood loss was minimal. Impression: - Diverticulosis in the recto-sigmoid colon, in the sigmoid colon and in the transverse colon. - Five 10 mm polyps in the rectum, in the sigmoid colon and at the hepatic flexure, removed with a hot snare. Resected and retrieved. Recommendation: - Repeat colonoscopy in 3 years for surveillance. - Continue present medications. Procedure Code(s): --- Professional --- 54290, Colonoscopy, flexible; with removal of tumor(s), polyp(s), or other lesion(s) by snare technique CPT copyright 2021 [employer]. All rights reserved. The codes documented in this report are preliminary and upon wood and wood products factory worker review may be revised to meet current compliance requirements. Howie Riley DO 01/14/2025 8:42:14 AM This report has been signed electronically. Number of Addenda: 0 Note Initiated On: 01/14/2025 8:12 AM
--- NOTE | 2025-01-14 08:43 | OP.PROVAT_ITS ---
01/14/2025 Dre Coles [address] [place] [address] Re : Colonoscopy procedure for [facility] Dear Dr. Coles This procedure was performed on Tuesday, January 14, 2025. My impressions and recommendations are as follows: Impressions : - Diverticulosis in the recto-sigmoid colon, in the sigmoid colon and in the transverse colon. - Five 10 mm polyps in the rectum, in the sigmoid colon and at the hepatic flexure, removed with a hot snare. Resected and retrieved. Recommendations : - Repeat colonoscopy in 3 years for surveillance. - Continue present medications. My findings are described in the full procedure note, which is enclosed. If I can be of further assistance, please feel free to contact me at . Sincerely, Howie Riley, 01/14/2025 8:42:14 AM This report has been signed electronically.
--- NOTE | 2025-01-14 08:45 | PCM.POST.ANE ---
Anesthesia: Postop Eval I Current Vital Signs Temperature: 99.6 F Pulse Rate: 74 Blood Pressure: 108/79 Respiratory Rate: 16 Pulse Ox: 97 Oxygen Delivery Method: Room Air Assessment Airway patent: Yes Spontaneous unlabored respirations: Yes Mental status: Awake nausea: No Vomiting: No Anesthesia Complication: No Fluid Hydration Crystalloid volume administer (ml): 700 Total IV fluid infused: 700 Progress Note Anesthesia document: Postop Eval 1 completed: Yes
--- NOTE | 2025-01-14 09:06 | PCM.POSTANE2 ---
Anesthesia Postop Eval I Sum Postop Eval Completion status Anesthesia document: Postop Eval 1 completed: Yes Anesthesia Postop Eval I Summary Anesthesia Postop Eval I Summary: Anesthesia Postop Eval I: Assessment Summary Airway patent Yes 01/14/25 08:46 [email or web address] Spontaneous unlabored Yes 01/14/25 08:46 [email or web address] respirations Mental status Awake 01/14/25 08:46 [email or web address] nausea No 01/14/25 08:46 [email or web address] Vomiting No 01/14/25 08:46 [email or web address] Anesthesia Postop Eval I: Fluid Summary Crystalloid volume administer 700 01/14/25 08:46 [email or web address] (ml) Colloids volume administered ( ml) Blood Product volume administered (ml) Total IV fluid infused 700 01/14/25 08:46 [email or web address] Anesthesia Postop Eval I: Summary Notes Anesthesia Complication No 01/14/25 08:46 [email or web address] Anesthesia Complication Comment: Post-operative progress note Anesthesia: Postop Eval II Evaluation Mental status: Awake Pain Level: 0 nausea: No Vomiting: No Complications Anesthesia Complication: No
== END 2025-01-14 09:12 | disposition home or self-care (01) ==
LOC: EN 06:50 → AC 06:51
PROVIDERS: Referring Provider Internal Medicine; Visit Provider Internal Medicine Gastroenterology
PROC: 0DJD8ZZ Inspection of Lower Intestinal Tract, Via Natural or Artificial Opening Endoscopic (ICD-10-PCS; CPT 45378; principal; 2025-01-14 07:40)
DX: D12.3 Benign neoplasm of transverse colon (principal); D12.5 Benign neoplasm of sigmoid colon; D12.8 Benign neoplasm of rectum; K29.50 Unspecified chronic gastritis without bleeding; K57.30 Diverticulosis of large intestine without perforation or abscess without bleeding; K21.9 Gastro-esophageal reflux disease without esophagitis; R16.0 Hepatomegaly, not elsewhere classified; Z79.01 Long term (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 anticoagulants
CPT/HCPCS: 45385; 43239; 88305; 88342; 94640; J2405

== ENCOUNTER → 2025-01-15 | Outpatient (CLI) | payer MEDICARE, SELFPAY ==
[2025-01-15 16:21] LABS: PSA,Total- Diagnostic 23.60 ng/mL (0.00-4.00)
== END | disposition home or self-care (01) ==
LOC: LAB 14:21
PROVIDERS: Referring Provider Urology; Visit Provider Urology
DX: C61 Malignant neoplasm of prostate (principal)
CPT/HCPCS: 36415; 84153

== ENCOUNTER 2025-02-06 09:08 | Emergency (ER) | payer MEDICARE, SELFPAY ==
[2025-02-06 09:10] VITALS: BP 133/70; PULSE 68; RESP 16; TEMP 36.1; O2SAT 98; BMI 33.7
--- NOTE | 2025-02-06 09:44 | EKG12_ITS ---
Test Reason : CP Blood Pressure : */* mmHG Vent. Rate : 62 BPM Atrial Rate : 62 BPM P-R Int : 192 ms QRS Dur : 114 ms QT Int : 440 ms P-R-T Axes : 76 -51 57 degrees QTcB Int : 446 ms Sinus rhythm with Premature supraventricular complexes Left anterior fascicular block Abnormal ECG Confirmed by JUNAID YEBOAH ([id number]), newspaper copy editor SHARAD LALA ([id number]) on 02/09/2025 9:12:13 AM Referred By: DAGOBERTO/RUBEN Confirmed By: JUNAID YEBOAH
[2025-02-06 09:45] VITALS: O2SAT 97
[2025-02-06 10:01] LABS: Hematocrit 35.9 % (40-54); Hemoglobin 12.0 g/dL (13.0-16.5); Immature Granulocytes Count 0.040 X10^3/uL (0.0-0.0); Mean Corp Hgb Conc 33.4 g/dL (32-36); Mean Corpuscular Volume 90.0 fL (80-94); Mean Platelet Vol. 9.3 fl (6.2-12.0); NRBC Flagged by Analyzer 0 % (0-5); Platelet Count 289 K/mm3 (150-450); RBC Distribution Width CV 13.4 % (11.6-14.6); RBC Distribution Width SD 44.2 fl (35.1-43.9); Red Blood Count 3.99 M/mm3 (4.6-6.2); White Blood Count 9.0 K/mm3 (4.4-11.0)
--- NOTE | 2025-02-06 10:06 | RAD_ITS ---
PROCEDURE: CHEST 1 VIEW (PORTABLE) 02/06/2025 REASON FOR EXAM: CHEST PAIN TECHNIQUE: Frontal view of the chest. COMPARISON: FINDINGS: Hardware: EKG leads overlie the chest Heart: The heart size is normal. Lungs: The lungs are clear. Bones: Degenerative changes are identified within the thoracic spine. Other: RAD/Chest 1 View (Portable) IMPRESSION: No acute pulmonary process Reading Location: [id number]
[2025-02-06 10:17] LABS: Anion Gap 12 (5-15); BUN 19 mg/dL (4-19); BUN/Creat Ratio 19.5 RATIO (10-20); Calcium,Total 9.1 mg/dL (7.6-11.0); Carbon Dioxide 23.1 mmol/L (21.0-32.0); Chloride 102 mmol/L (98-108); Estimated Creatinine Clearance 81.17 ml/min (50-250); Glucose 112 mg/dL (70-99); Potassium 3.9 mmol/L (3.3-5.1); Troponin T High Sensitivity 25 ng/L (<=22)
--- NOTE | 2025-02-06 10:17 | ED.VIS.CHEST ---
HPI History of Present Illness Chief Complaint: Chest Pain Narrative Narrative: Chief complaint and HPI: History taken by patient and as well as oncology note on 01/26/2023. Most of past medical history was obtained by oncology note. 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 Triage note states right eye however it is the left. Patient states for the past 3 days he has felt that there is something in his left eye. He states he feels a foreign body sensation and that it causes clear tearing of the eye. He denies any vision changes to the eye. Denies any pain in the eye. Patient states since yesterday he has been having intermittent sharp left-sided chest pain. States he has a history of chest pain in which he follows with [facility] cardiology. States that this feels different as it is more sharp in nature. He denies any fever, chills, shortness of breath, URI symptoms. States at baseline he has a chronic cough. Patient follows with Dr. Esteban with oncology. He has palliative intent and is on a single agent therapy with with pazopanib starting at 400 mg daily and advancing if tolerated to 600 mg daily. Review of systems: See HPI Medications: As listed on the chart Allergies: As listed on the chart PFSH: Per chart Vital signs: As listed on the chart. Reviewed. Physical exam: Gen: A&O x3, NAD Head: Normocephalic, atraumatic Eye: No periorbital swelling or ecchymosis, no proptosis, no pain with extra ocular movements, EOMI intact, PERRLA, no lacerations, no sclera chemosis or injection, no foreign body, no teardrop pupil, no enophthalmos. A fluorescein dye was instilled and under UV light no uptake was identified, negative Seidels sign. Patient does have an area under the upper left lateral eyelid that is slightly thickened mucosa it appears from irritation-patient states he has been touching his eye a lot. intraocular pressure was 17. Visual Acuity 20/30 bilaterally, 20/20 right, 20/30 left ENT: Moist mucous membranes Neck: Trachea midline, No JVD CV: RRR, no peripheral edema Resp: Lungs CTA BL, no w/r/c GI: Abd soft, protuberant abdomen but non-distended, mildly tender diffusely but patient states this is baseline from his cancer, no r/r Musc: Full ROM, no deformity Skin: Warm, dry Neuro: Alert, oriented, grossly intact, sensation intact Psych: Cooperative, appropriate mood and affect [facility] Medical History (Updated 02/06/25 @ 13:[address] Justo Ventura, DO) Metastatic sarcoma Wears hearing aid Wears partial dentures Wears glasses Alcohol use Back pain Radiation burn Gastric reflux Non-smoker Chronic cough Shortness of breath on exertion History of echocardiogram History of stress test Cardiology follow-up encounter Prostate cancer 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 Murmur, heart IBS (irritable bowel syndrome) High blood pressure Cancer Atrial fibrillation Home Medications ?Medication ?Instructions ?Recorded ?Last Taken ?Type finasteride 5 mg tablet 5 mg PO DAILY 07/26/19 01/13/25 History lorazepam 0.5 mg tablet 0.5 mg PO DAILY PRN PRN Anxiety 07/26/19 Unknown History losartan 100 mg tablet 100 mg PO DAILY 07/26/19 01/12/25 History tamsulosin 0.4 mg capsule 0.4 mg PO DAILY 07/26/19 01/13/25 History apixaban 5 mg tablet (Eliquis) 5 mg PO BID 11/17/24 01/09/25 History fluticasone furoate 100 1 inh inhalation QHS 11/17/24 Unknown History mcg-vilanterol 25 mcg/dose inhalation powder (Breo Ellipta) dofetilide 125 mcg capsule 250 mcg PO BID 12/30/24 01/13/25 History albuterol sulfate 90 mcg/actuation 1 - 2 puff inhalation Q4H PRN 01/09/25 Unknown History aerosol inhaler wheezing thiamine HCl (vitamin B1) 100 mg 100 mg PO QDAY 01/26/25 Unknown History tablet vitamin B complex 1 cap PO QDAY 01/26/25 Unknown History Allergy/AdvReac Type Severity Reaction Status Date / Time No Known Allergies Allergy Verified 01/26/25 12:00 Family History Father Alcoholism Brother Cancer Prostate Aunt Cancer Grandmother Dementia Surgical History History of cardiac catheterization History of cardiac ablation for atrial fibrillation History of tonsillectomy and adenoidectomy History of repair of hiatal hernia History of esophagogastroduodenoscopy (EGD) Hx of colonoscopy History of surgery on arm Hx of vasectomy History of appendectomy Social History Smoking Status: Never smoker alcohol intake: current alcohol intake frequency: holidays/special occasions only Alcohol type: wine substance use type: does not use EXAM Physical Exam Const Vital Signs: 02/06/25 09:09 02/06/25 09:10 02/06/25 09:45 Temperature 97 F L Temperature Source Temporal Pulse Rate 68 Respiratory Rate 16 Respiratory Effort Normal Non-Labored Blood Pressure 133/70 H Blood Pressure Mean 91 Pulse Ox 98 97 Oxygen Delivery Method Room Air Room Air 02/06/25 11:09 Temperature Temperature Source Pulse Rate 67 Respiratory Rate 18 Respiratory Effort Blood Pressure 138/77 H Blood Pressure Mean 97 Pulse Ox 98 Oxygen Delivery Method MDM MDM MDM Narrative Medical decision making narrative: History taken by patient and as well as oncology note on 01/26/2023. Most of past medical history was obtained by oncology note. 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 Triage note states right eye however it is the left. Patient states for the past 3 days he has felt that there is something in his left eye. He states he feels a foreign body sensation and that it causes clear tearing of the eye. He denies any vision changes to the eye. Denies any pain in the eye. Patient states since yesterday he has been having intermittent sharp left-sided chest pain. States he has a history of chest pain in which he follows with [facility] cardiology. States that this feels different as it is more sharp in nature. Patient follows with Dr. Esteban with oncology. Differential diagnosis includes but is not limited to corneal abrasion, foreign object in the eye, allergic conjunctivitis, pleurisy, PE given his history of cancer, ACS, electrolyte abnormality, worsening metastatic disease. Aspirin ordered for pain. Laboratory workup ordered. Eye exam shows some eyelid irritation but otherwise unremarkable. No foreign body. Follow-up with eye doctor for foreign body sensation. He confirmed understanding. EKG and chest x-ray reviewed. CBC without leukocytosis. Patient has baseline anemia of 12. Platelets unremarkable. INR unremarkable. BMP unremarkable. Troponin 25 and 30 which makes delta less than 6. BNP unremarkable. CTA chest negative for PE. Patient has a minimal pulmonary lymph nodes consistent with metastasis. He has lymphadenopathy and ill-defined hepatic metastasis. All which that are known. On reevaluation, patient's chest pain has resolved. He states when he does have chest pain it is intermittent and describes it as sharp and worse when he coughs. This is atypical for cardiac chest pain. Low suspicion for ACS. Recommend following up with PCP and cardiology as needed. Return back to the ED if symptoms change or worsen. Recommend seeing the eye doctor for his foreign body sensation. Return precautions explained. Patient and son confirmed understand the plan. Patient stable to discharge home. EKG: Interpreted by me/EM physician: EKG shows sinus rhythm with PVCs. No acute ischemic changes. Heart rate 62. Left anterior fascicular block. This is similar to previous EKG. Diagnostic: Interpreted by me/EM physician:Chest x-ray without pneumonia, effusion, cardiomegaly, pneumothorax. Radiology in agreement. Impression: 1. Atypical chest pain 2. Foreign body sensation in left eye Lab Data Labs: Laboratory Results - last 24 hr 02/06/25 02/06/25 09:49 11:43 WBC 9.0 RBC 3.99 L Hgb 12.0 L Hct 35.9 L MCV 90.0 MCH 30.1 MCHC 33.4 RDW Std Deviation 44.2 H RDW Coeff of Belkis 13.4 Plt Count 289 MPV 9.3 Immature Gran % (Auto) 0.400 Neut % (Auto) 74.0 H Lymph % (Auto) 12.7 L [place] % (Auto) 11.6 H Eos % (Auto) 0.9 Baso % (Auto) 0.4 Absolute Neuts (auto) 6.6 Absolute Lymphs (auto) 1.14 Nucleated RBC % 0 PT 18.1 H INR 1.5 APTT 41.9 H Sodium 137 Potassium 3.9 Chloride 102 Carbon Dioxide 23.1 Anion Gap 12 BUN 19 Creatinine 0.99 Estim Creat Clear Calc 81.17 Est GFR (MDRD) Non-Af 79 BUN/Creatinine Ratio 19.5 Glucose 112 H Calcium 9.1 Troponin T High Sens 25 H Troponin T Hi Sens 2 Hr 30 H NT pro BNP II 1109 Radiography Diagnostic Testing: Clinical Impression(s) from Imaging Studies Chest X-Ray 02/06/25 10:06 IMPRESSION: No acute pulmonary process Reading Location: [facility] Chest CTA 02/06/25 11:00 IMPRESSION: No evidence of pulmonary embolism. Innumerable pulmonary lymph nodes consistent with metastasis. Lymphadenopathy and ill-defined hepatic metastasis. Reading Location: [facility] Discharge Plan Triage Chief Complaint: Chest Pain ED Provider: Justo Ventura Dx/Rx/DC Orders Clinical Impression: Chest pain, Foreign body sensation, left eye Instructions: ED Chest Pain, Uncertain Cause Prescriptions: No Action fluticasone furoate-vilanterol [Breo Ellipta] 100-25 mcg/dose blister with device 1 inh inhalation QHS Eliquis 5 mg tablet 5 mg PO BID dofetilide 125 mcg capsule 250 mcg PO BID thiamine HCl (vitamin B1) 100 mg tablet 100 mg PO QDAY vitamin B complex Capsule 1 cap PO QDAY lorazepam 0.5 MG tablet 0.5 mg PO DAILY PRN PRN (Reason: Anxiety) tamsulosin 0.4 MG capsule 0.4 mg PO DAILY losartan 100 MG tablet 100 mg PO DAILY finasteride 5 MG tablet 5 mg PO DAILY albuterol sulfate 90 mcg/actuation HFA aerosol inhaler 1 - 2 puff INHALATION Q4H PRN (Reason: wheezing) Primary Care Provider: Caleb Mccurdy Referrals: Caleb Burnett MD [Med Staff - Active Staff, Opthamology] - 3-5 Days Caleb Mccurdy DO [Primary Care Provider, Medical] - 3-5 Days Activity Restrictions/Additional Instructions: Follow-up with your primary care physician as well as upscale security officer. Return back to the ED if symptoms change or worsen. Follow-up with your eye doctor. If you do not have an eye doctor follow-up with the one listed above. Print Language: Kazakh Disposition Disposition: Home, Self Care
[2025-02-06] MEDS: Tetracaine 0.5% Ophthalmic Bottle 1 DRP OPHTHALMIC (10:23)
[2025-02-06 11:00] LABS: Prothrombin Time (Protime)PT. 18.1 SECONDS (11.7-14.9)
--- NOTE | 2025-02-06 11:00 | CT_ITS ---
PROCEDURE: CTA CHEST W/WO CONTRAST 02/06/2025 REASON FOR EXAM: PLEURITIC CHEST PAIN, PE, HISTORY OF CANCER TECHNIQUE: Procedure Code: [id number] Modality: CT Procedure: CTA CHEST W/WO CONTRAST Multiplanar Sagittal and Coronal images were obtained. CONTRAST: Isovue 370 VOLUME: 104 mL One or more dose reduction techniques were used (e.g., Automated exposure control, adjustment of the mA and/or kV according to patient size, use of iterative reconstruction technique). RADIATION DOSE SUMMARY: CTDlvol: 14.14 mGy DLP: 521.76 mGycm COMPARISON: CT chest abdomen pelvis December 18, 2024. # of known CTs in the past 12 months: 1. # of known Cardiac Nuclear Medicine Studies in the past 12 months: None. FINDINGS: Thoracic Aorta: No aneurysm. No dissection. Heart: Large cardiomegaly. Atherosclerotic calcifications of the coronary arteries. Pulmonary Vessels: No evidence of pulmonary embolism. Hardware: None. Lymph nodes: Enlarged right axillary admits the sternal lymph nodes. A prevascular lymph node measures 2 cm. Lungs and Airways: Innumerable pulmonary nodules with the largest measures 1.7 cm in the left lower lobe. Pleura: No pleural effusion or pneumothorax. Upper Abdomen: Multiple ill-defined metastatic lesions in the spleen. Bones: No acute or suspicious bony abnormalities. Soft tissues: Gynecomastia. CT/CTA Chest W/WO Contrast IMPRESSION: No evidence of pulmonary embolism. Innumerable pulmonary lymph nodes consistent with metastasis. Lymphadenopathy and ill-defined hepatic metastasis. Reading Location: [id number]
[2025-02-06 11:01] LABS: Partial Thromboplast Time 41.9 Seconds (24.1-36.2); Pro- Brain NATRIURETIC PEPTIDE 1109 pg/mL (<=1800)
[2025-02-06 11:09] VITALS: BP 138/77; PULSE 67; RESP 18; O2SAT 98
[2025-02-06 12:35] LABS: Troponin T High Sens 2 HR 30 ng/L (<=22)
== END 2025-02-06 13:20 | disposition home or self-care (01) ==
PROVIDERS: Emergency Provider Surgery; Visit Provider Surgery
DX: R07.89 Other chest pain (principal); C78.7 Secondary malignant neoplasm of liver and intrahepatic bile duct; C78.01 Secondary malignant neoplasm of right lung; C78.02 Secondary malignant neoplasm of left lung; I48.91 Unspecified atrial fibrillation; H57.8A2 Foreign body sensation, left eye; I10 Essential (primary) hypertension; D64.9 Anemia, unspecified; I44.4 Left anterior fascicular block; I49.3 Ventricular premature depolarization; Z85.46 Personal history of malignant neoplasm of prostate; Z79.01 Long term (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 anticoagulants; Z79.899 Other long term (current) drug therapy
CPT/HCPCS: 71045; 71275; 80048; 83880; 84484; 85025; 85610; 85730; 93005; 99285; Q9967; A4216

== ENCOUNTER → 2025-02-10 | Outpatient (CLI) | payer MEDICARE, SELFPAY ==
--- OUTSIDE RECORDS SUMMARY | 2024-12-29 07:10 | XMS RPT_ITS ---
Author Name Auto Generated Organization OHIP Care Team Providers Care Study Abroad Coordinator Name Role Phone EZKEIEL CARO Primary Care Unavailable JORDYN GILL Attending Unavailable DALI THAYER Referring Unavailable SILVER KRAFT Primary Care Unavailable ELAYNE EDWARDS Referring Unavailable EZEKIEL CARO F Primary Care Unavailable DIO ANAYA Referring Unavailable VANIA EZEKIEL F Primary Care Unavailable EZEKIEL CARO DO Attending Unavailable EZEKIEL CARO DO Primary Care Unavailable SILVER KRAFT DO Attending Unavailable SILVER KRAFT DO Primary Care Unavailable DIO ANAYA Admitting Unavailable DIO ANAYA Attending Unavailable DIO ANAYA Referring Unavailable DIO ANAYA Referring Unavailable DIO ANAYA Referring Unavailable VANIA EZEKIEL F Primary Care Unavailable JOSELYN REYES Attending Unavailable VANIA EZEKIEL F Primary Care Unavailable SAIRANGLARISA, ROB Admitting Unavailable VIELKA ROB Attending Unavailable DIO ANAYA Referring Unavailable SILVER KRAFT Primary Care Unavailable ELAYNE EDWARDS Referring Unavailable VANIA EZEKIEL F Primary Care Unavailable ELAYNE EDWARDS Referring Unavailable VANIA EZEKIEL F Primary Care Unavailable DIO ANAYA Attending Unavailable ELAYNE EDWARDS Referring Unavailable VANIA EZEKIEL F Primary Care Unavailable ELAYNE EDWARDS Attending Unavailable VANIA EZEKIEL F Primary Care Unavailable JOSELYN REYES Attending Unavailable PROBLEMS DATE TYPE CONDITION / CODE ATTENDING STATUS [facility] 12/29/2024 Active Hepatomegaly, no t elsewhere classified / R16.0(ICD-10) [facility] 12/29/2024 Active Epigastric pain / R10.13(ICD-10) [facility] 12/23/2024 Active Atrial fibrillat ion (HCC) / I48.91(ICD-10) [facility] Active [facility] 12/23/2024 Active Persistent atria l fibrillation (HCC) / I48.19(ICD-10) [facility] 11/20/2024 Active Chronic cough / R05.3(ICD-10) JOSELYN REYES [facility] 11/20/2024 Active Vitamin D defici ency / E55.9(ICD-10) JOSELYN REYES [facility] 02/11/2022 Active Longstanding persistent atrial fibrillation (HCC) / I48.11(ICD-10) DIO ANAYA Active [facility] 02/11/2022 Active Atrial fibrillat ion, unspecified type (HCC) / I48.91(ICD-10) SHANIQUA [facility] 05/09/2021 Active Shortness of marck ath / R06.02(ICD-10) JOSELYN REYES [facility] 10/20/2024 Active Cough, unspecifi ed type / R05.9(ICD-10) JOSELYN REYES [facility] 10/20/2024 Active Obstructive slee p apnea / G47.33(ICD-10) JOSELYN REYES [facility] 10/20/2024 Active Abdominal aortic aneurysm (AAA) without rupture, unspecified part / I71.40(ICD-10) JOSELYN REYES [facility] 10/17/2024 Admitting Diagnosis Encounter for general adult medical examination without abnormal findings / Z00.00(ICD-10) SILVER KRAFT DO [facility] 10/17/2024 Admitting Diagnosis Paroxysmal atrial fibrillation / I48.0(ICD-10) SILVER KRAFT DO [facility] 10/17/2024 Admitting Diagnosis Gastro-esophageal reflux disease without esophagitis / K21.9(ICD-10) SILVER KRAFT DO [facility] 10/17/2024 Admitting Diagnosis Hyperlipidemia, unspecified / E78.5(ICD-10) SILVER KRAFT DO [facility] 10/17/2024 Admitting Diagnosis Chronic diastolic (congestive) heart failure / I50.32(ICD-10) SILVER KRAFT DO [facility] 08/22/2024 Active 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) [facility] 02/11/2022 Active Paroxysmal atria l fibrillation (HCC) / I48.0(ICD-10) [facility] 07/07/2024 Active 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 Patient is requesting we call his provider to discuss changes to make to his medication so he can start treatment. Dorota Seth P: [phone] Please advise, Thank you Rios De Luna RN 02/10/2025 11:20 AM Signed Called [phone] Pazopanib is the medication. They will fax over the last office visit note. Rios De Luna RN 02/10/2025 11:50 AM Signed Fax received from [facility] Evelyn Gaming 02/10/2025 12:07 PM Signed Scan on 02/10/2025 12:06 PM by Evelyn Gaming: [facility] Allergies As of Date: 02/10/2025 Noted Allergy Reaction PERCOCET (OXYCODONE-ACETAMINOPHEN)09/15/2016 9 - Itching Comments: Pt took 2 doses close together (per patient) Date Reviewed: 12/26/2024 Reviewed by: Rios Hernandez, UMAIR - Fully Assessed Reason for Visit: Patient Update [1234] Prescriptions as of 02/11/2025 - dofetilide (TIKOSYN) 250 mcg capsule Take 1 capsule by mouth two times a day. - albuterol HFA (PROVENTIL HFA, VENTOLIN HFA) 90 mcg/actuation inhaler Inhale 1 puff as instructed every 6 hours as needed for wheezing/shortness of breath. - fluticasone-salmeterol (ADVAIR DISKUS) 100-50 mcg/dose inhaler Inhale 1 puff as instructed two times a day. - pantoprazole DR (PROTONIX) 40 mg tablet Take 40 mg by mouth once daily. - apixaban (ELIQUIS) 5 mg tab(s) Take 1 tablet by mouth two times a day. - LORAZEPAM ORAL Take 0.5 mg by mouth as needed. - losartan (COZAAR) 25 mg tablet Take 1 tablet by mouth once daily. - thiamine (VITAMIN B1) 100 mg tablet 1 tablet by ORAL/FEEDING TUBE route once daily. - benzonatate (TESSALON PERLES) 100 mg capsule Take 2 capsules by mouth three times daily as needed for cough for up to 20 doses. - finasteride (PROSCAR) 5 mg tablet once daily. - tamsulosin (FLOMAX) 0.4 mg ORAL Cp24 Take 1 capsule by mouth daily at bedtime. 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 [Z79.01] 01/07/2022 Elevated LFTs [R79.89] 01/07/2022 Anemia [D64.9] 01/07/2022 Elevated serum creatinine [R79.89] 01/07/2022 Chest pain [R07.9] 01/08/2022 Supratherapeutic INR [R79.1] 01/09/2022 Steroid-induced hyperglycemia [R73.9, T38.0X5A] 01/09/2022 COPD (chronic obstructive pulmonary disease) (H*01/10/2022 CKD (chronic kidney disease) stage 2, GFR 60-89*01/11/2022 Subacute frontal sinusitis [J01.10] 01/13/2022 Atrial fibrillation (HCC) [I48.91] 02/08/2022 Mitral valve insufficiency [I34.0] 06/01/2022 Encounter for monitoring dofetilide therapy [Z5*06/01/2022 Ascending aorta dilatation (HCC) [I77.810] 06/18/2023 Persistent atrial fibrillation (HCC) [I48.19] 12/23/2024 Chronic diastolic heart failure (HCC) [I50.32] 10/17/2024 Obesity, Class I, BMI 30-34.9 [E66.811] 12/25/2024 Visit for monitoring Tikosyn therapy [Z51.81, Z*12/26/2024 Encounter Status:Closed by GEORGE CORTES on 02/10/25 MIMI Observed: 12/31/2024 12:00 AM Status: COMPLETED Source: [facility] Telephone (CARDMM) ANYA KAMARA ([id number]) 1950 M [facility] Date Time Provider Department 12/31/24 JOSELYN REYES During your visit today, we recorded the following information about you: Aden Yuan LPN 12/31/2024 1:[address] [facility] [employer] received via fax. FERNANDO 11/20/24 Arturo Billingsley [employer] Breakfast Attendant MD visit 06/01/22 Dr Pillai Form placed on desk of Cristian Reyes CNP for review. Aden Yuan LPN 01/01/2025 11:16 AM Signed Form signed, return faxed, and fax confirmation received. Placed in PSS basket for scanning. Evelyn Gaming 01/01/2025 11:19 AM Signed Scan on 01/01/2025 11:18 AM by Evelyn Gaming: [facility] [employer] Hold Allergies As of Date: 12/31/2024 Noted Allergy Reaction PERCOCET (OXYCODONE-ACETAMINOPHEN)09/15/2016 9 - Itching Comments: Pt took 2 doses close together (per patient) Date Reviewed: 12/26/2024 Reviewed by: Rios Hernandez, UMAIR - Fully Assessed Reason for Visit: Forms [913] Cmt: [facility] Eliquis Hold Prescriptions as of 01/05/2025 - dofetilide (TIKOSYN) 250 mcg capsule Take 1 capsule by mouth two times a day. - albuterol HFA (PROVENTIL HFA, VENTOLIN HFA) 90 mcg/actuation inhaler Inhale 1 puff as instructed every 6 hours as needed for wheezing/shortness of breath. - fluticasone-salmeterol (ADVAIR DISKUS) 100-50 mcg/dose inhaler Inhale 1 puff as instructed two times a day. - pantoprazole DR (PROTONIX) 40 mg tablet Take 40 mg by mouth once daily. - apixaban (ELIQUIS) 5 mg tab(s) Take 1 tablet by mouth two times a day. - LORAZEPAM ORAL Take 0.5 mg by mouth as needed. - losartan (COZAAR) 25 mg tablet Take 1 tablet by mouth once daily. - thiamine (VITAMIN B1) 100 mg tablet 1 tablet by ORAL/FEEDING TUBE route once daily. - benzonatate (TESSALON PERLES) 100 mg capsule Take 2 capsules by mouth three times daily as needed for cough for up to 20 doses. - finasteride (PROSCAR) 5 mg tablet once daily. - tamsulosin (FLOMAX) 0.4 mg ORAL Cp24 Take 1 capsule by mouth daily at bedtime. 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] 09/15/2016 Bilateral hearing loss [H91.93] 09/15/2016 Chronic headaches [R51.9, G89.29] 09/18/2016 09/18/2016 COPD with acute exacerbation (HCC) [J44.1] 01/07/2022 BRENDA on CPAP [G47.33] 01/07/2022 Obesity (BMI 35.0-39.9 without comorbidity) [E6*01/07/2022 shelter current use of anticoagulant [Z79.01] 01/07/2022 Elevated LFTs [R79.89] 01/07/2022 Anemia [D64.9] 01/07/2022 Elevated serum creatinine [R79.89] 01/07/2022 Chest pain [R07.9] 01/08/2022 Supratherapeutic INR [R79.1] 01/09/2022 Steroid-induced hyperglycemia [R73.9, T38.0X5A] 01/09/2022 COPD (chronic obstructive pulmonary disease) (H*01/10/2022 CKD (chronic kidney disease) stage 2, GFR 60-89*01/11/2022 Subacute frontal sinusitis [J01.10] 01/13/2022 Atrial fibrillation (HCC) [I48.91] 02/08/2022 Mitral valve insufficiency [I34.0] 06/01/2022 Encounter for monitoring dofetilide therapy [Z5*06/01/2022 Ascending aorta dilatation (HCC) [I77.810] 06/18/2023 Persistent atrial fibrillation (HCC) [I48.19] 12/23/2024 Chronic diastolic heart failure (HCC) [I50.32] 10/17/2024 Obesity, Class I, BMI 30-34.9 [E66.811] 12/25/2024 Visit for monitoring Tikosyn therapy [Z51.81, Z*12/26/2024 Encounter Status:Closed by ADEN YUAN on 01/05/25 US DOPPLER COMPLETE Observed: 12/29/2024 8:53 AM Status: F Source: [facility] * * *Final Report* * * DATE OF EXAM: Dec 29 2024 8:53AM NED 1033 - US DOPPLER COMPLETE / PROCEDURE REASON: R10.13 EPIGASTRIC PAIN R16.0 HEPATOMEGALY ,NOT ELSEWHERE CLASSIFIED * * * * Physician Interpretation * * * * EXAMINATION: LIVER VASCULAR ULTRASOUND WITH DOPPLER IMAGING CLINICAL HISTORY: Epigastric pain. History of prostate cancer with PSA of 11.18 ng/mL on 10/17/2024. TECHNIQUE: Sonography of the liver with color and spectral Doppler imaging of the hepatic vasculature was performed. Images were obtained and stored in a permanent archive. MQ: USLV_1 COMPARISON: Right upper quadrant ultrasound 12/31/2021 RESULT: Sonographic Findings: Pancreas: Normal sonographic appearance. Portions obscured: tail Liver: Echotexture: Normal, homogeneous. Echogenicity: Normal Surface contour: Smooth Lesions: Numerous bilobar hepatic lesions, largest in the left lobe measuring 6.7 cm and largest in the right lobe measuring 9.7 cm. Biliary: No intrahepatic biliary duct dilation. CBD: 0.3 cm at the hilum. Gallbladder: Normal caliber -Contents: No cholelithiasis -Wall: Normal -Other: No pericholecystic fluid. Right Kidney: No hydronephrosis. Spleen: Craniocaudal length 11.4 cm, normal. There are no splenic lesions. Other: No ascites HEPATIC VASCULATURE: PORTAL SYSTEM: -Splenic Vein: Patent with antegrade flow (towards the liver). -Main PV: Patent with normal, phasic antegrade flow (towards liver). 18 cm/sec -Right anterior PV: Patent with phasic antegrade flow (towards liver). -Right posterior PV: Patent with phasic antegrade flow (towards liver). -Left PV: Patent with phasic antegrade flow (towards liver). Splenorenal shunt: None Recanalized paraumbilical vein: None HEPATIC ARTERIES: - Main SCHERER: Normal waveform PSV: 133 cm/sec. RI: 0.70 - Right anterior SCHERER: Normal waveform - Right posterior SCHERER: Normal waveform - Left SCHERER: Normal waveform HEPATIC VEINS: -Left: Patent with triphasic waveform. -Middle: Patent with triphasic waveform. -Right: Patent with triphasic waveform. IVC: Patent with normal, phasic wave form. IMPRESSION: Patent hepatic vasculature with appropriately directed flow. Multiple hepatic lesions, likely metastatic and presumably secondary to the patient's known prostate cancer. These are amenable to percutaneous biopsy. ACTIONABLE RESULT: FOLLOW-UP Acuity: Actionable Findings: Liver Routing Code: LV_1 Recommendation: SUBSPECIALTY CONSULTATION SUGGESTED Time Frame: At the discretion of the clinical team. COMMUNICATION: Results will be communicated with the ordering provider via [employer] staff message or phone message by Imaging Support Services within 2 business days of report finalization. --END OF FINDING-- 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: ABEBE Transcribe Date/Time: Dec 31 2024 5:32A Dictated by : LUIS M WADE MD This examination was interpreted and the report reviewed and electronically signed by: LUIS M WADE MD on Dec 31 2024 5:45AM EST [id number] ACTIONABLE US ABD LIVER VASCULAR Observed: 12/30/19 25 8:53 AM Status: F Source: [facility] * * *Final Report* * * DATE OF EXAM: Dec 29 2024 8:53AM MDU 1233 - US ABD LIVER VASCULAR / PROCEDURE REASON: R10.13 EPIGASTRIC PAIN R16.0 HEPATOMEGALY ,NOT ELSEWHERE CLASSIFIED * * * * Physician Interpretation * * * * EXAMINATION: LIVER VASCULAR ULTRASOUND WITH DOPPLER IMAGING CLINICAL HISTORY: Epigastric pain. History of prostate cancer with PSA of 11.18 ng/mL on 10/17/2024. TECHNIQUE: Sonography of the liver with color and spectral Doppler imaging of the hepatic vasculature was performed. Images were obtained and stored in a permanent archive. MQ: USLV_1 COMPARISON: Right upper quadrant ultrasound 12/31/2021 RESULT: Sonographic Findings: Pancreas: Normal sonographic appearance. Portions obscured: tail Liver: Echotexture: Normal, homogeneous. Echogenicity: Normal Surface contour: Smooth Lesions: Numerous bilobar hepatic lesions, largest in the left lobe measuring 6.7 cm and largest in the right lobe measuring 9.7 cm. Biliary: No intrahepatic biliary duct dilation. CBD: 0.3 cm at the hilum. Gallbladder: Normal caliber -Contents: No cholelithiasis -Wall: Normal -Other: No pericholecystic fluid. Right Kidney: No hydronephrosis. Spleen: Craniocaudal length 11.4 cm, normal. There are no splenic lesions. Other: No ascites HEPATIC VASCULATURE: PORTAL SYSTEM: -Splenic Vein: Patent with antegrade flow (towards the liver). -Main PV: Patent with normal, phasic antegrade flow (towards liver). 18 cm/sec -Right anterior PV: Patent with phasic antegrade flow (towards liver). -Right posterior PV: Patent with phasic antegrade flow (towards liver). -Left PV: Patent with phasic antegrade flow (towards liver). Splenorenal shunt: None Recanalized paraumbilical vein: None HEPATIC ARTERIES: - Main SCHERER: Normal waveform PSV: 133 cm/sec. RI: 0.70 - Right anterior SCHERER: Normal waveform - Right posterior SCHERER: Normal waveform - Left SCHERER: Normal waveform HEPATIC VEINS: -Left: Patent with triphasic waveform. -Middle: Patent with triphasic waveform. -Right: Patent with triphasic waveform. IVC: Patent with normal, phasic wave form. IMPRESSION: Patent hepatic vasculature with appropriately directed flow. Multiple hepatic lesions, likely metastatic and presumably secondary to the patient's known prostate cancer. These are amenable to percutaneous biopsy. ACTIONABLE RESULT: FOLLOW-UP Acuity: Actionable Findings: Liver Routing Code: LV_1 Recommendation: SUBSPECIALTY CONSULTATION SUGGESTED Time Frame: At the discretion of the clinical team. COMMUNICATION: Results will be communicated with the ordering provider via [employer] staff message or phone message by Imaging Support Services within 2 business days of report finalization. --END OF FINDING-- 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: PSCTheresa Transcribe Date/Time: Dec 31 2024 5:32A Dictated by : LUIS M WADE MD This examination was interpreted and the report reviewed and electronically signed by: LUIS M WADE MD on Dec 31 2024 5:45AM EST [id number] ACTIONABLE PROGRESS Observed: 12/29/2024 7:30 AM Status: COMPLETED Source: [facility] HNO ID: [id number] Author: KANDY MAYS RDMS Service: Radiology Author Type: Technologist Type: Progress Notes Filed: 12/29/2024 08:39 Note Text: Radiology Service Progress Note PATIENT NAME: Anya Kamara DATE OF SERVICE: December 29, 2024 TIME: 8:39 AM PATIENT IDENTITY VERIFICATION COMPLETED USING TWO (2) IDENTIFIERS: Name and Date of confirmed by patient verbally. FALL SCREENING: Has the patient had 2 falls in the last year or 1 fall with injury or currently using an Ambulatory Assistive Device (Walker, Cane, Wheelchair, Crutches, etc.)? No PATIENT GENDER DATA: Assigned female at . status: : No status: NO. PATIENT RELEVANT IMPLANT DATA REVIEWED: Not Applicable PATIENT PRESENTS WITH AN IMPLANTABLE OR ATTACHED TRANSACTIONAL PARALEGAL: No RADIOLOGY DEPARTMENT: Ultrasound PERIPHERAL IV DATA: Not applicable SIGNED BY: Kandy Mays RDMS December 29, 2024 8:39 AM CNPN Observed: 12/29/2024 12:00 AM Status: COMPLETED Source: [facility] Telephone (EPSMN) ANYA KAMARA ([id number]) 1950 M [facility] Date Time Provider Department 12/29/24 DIO ANAYA During your visit today, we recorded the following information about you: Maribel Franco RN 12/29/2024 6:25 PM Signed ----- Message from Dio Anaya MD sent at 12/19/2024 11:26 AM EDT ----- BB Can you reach out. 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 On low dose Tikosyn. Would rec admission to [facility] main to attempt to up-titrate Tikosyn to 250 mcg BId. Tentatively hold a spot for a redo PVI / atypical AFL RFA in the event that increased Tikosyn fails. Lucinda Please look for a sooner spot for a redo PVI / atypical AFL RFA GA CARTO / farapulse. hold AM Eliquis. thanks bb Maribel Franco, UMAIR 12/29/2024 6:30 PM Signed Called patient to schedule procedure as requested below, patient stated no ablation, his Tikosyn is working. Explained about Dr. Anaya recommending to get scheduled for ablation tentatively per office notes, patient declined to schedule procedure at this time. No procedure scheduled. Maribel Franco, RN, RN Allergies As of Date: 12/29/2024 Noted Allergy Reaction PERCOCET (OXYCODONE-ACETAMINOPHEN)09/15/2016 9 - Itching Comments: Pt took 2 doses close together (per patient) Date Reviewed: 12/26/2024 Reviewed by: Rios Hernandez, RN - Fully Assessed Reason for Visit: Patient Update [1234] Cmt: Redo PVI/Atypical AFL (patient declined to schedule) Prescriptions as of 12/29/2024 - dofetilide (TIKOSYN) 250 mcg capsule Take 1 capsule by mouth two times a day. - albuterol HFA (PROVENTIL HFA, VENTOLIN HFA) 90 mcg/actuation inhaler Inhale 1 puff as instructed every 6 hours as needed for wheezing/shortness of breath. - fluticasone-salmeterol (ADVAIR DISKUS) 100-50 mcg/dose inhaler Inhale 1 puff as instructed two times a day. - pantoprazole DR (PROTONIX) 40 mg tablet Take 40 mg by mouth once daily. - apixaban (ELIQUIS) 5 mg tab(s) Take 1 tablet by mouth two times a day. - LORAZEPAM ORAL Take 0.5 mg by mouth as needed. - losartan (COZAAR) 25 mg tablet Take 1 tablet by mouth once daily. - thiamine (VITAMIN B1) 100 mg tablet 1 tablet by ORAL/FEEDING TUBE route once daily. - benzonatate (TESSALON PERLES) 100 mg capsule Take 2 capsules by mouth three times daily as needed for cough for up to 20 doses. - finasteride (PROSCAR) 5 mg tablet once daily. - tamsulosin (FLOMAX) 0.4 mg ORAL Cp24 Take 1 capsule by mouth daily at bedtime. 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] 09/15/2016 Bilateral hearing loss [H91.93] 09/15/2016 Chronic headaches [R51.9, G89.29] 09/18/2016 09/18/2016 COPD with acute exacerbation (HCC) [J44.1] 01/07/2022 BRENDA on CPAP [G47.33] 01/07/2022 Obesity (BMI 35.0-39.9 without comorbidity) [E6*01/07/2022 shelter current use of anticoagulant [Z79.01] 01/07/2022 Elevated LFTs [R79.89] 01/07/2022 Anemia [D64.9] 01/07/2022 Elevated serum creatinine [R79.89] 01/07/2022 Chest pain [R07.9] 01/08/2022 Supratherapeutic INR [R79.1] 01/09/2022 Steroid-induced hyperglycemia [R73.9, T38.0X5A] 01/09/2022 COPD (chronic obstructive pulmonary disease) (H*01/10/2022 CKD (chronic kidney disease) stage 2, GFR 60-89*01/11/2022 Subacute frontal sinusitis [J01.10] 01/13/2022 Atrial fibrillation (HCC) [I48.91] 02/08/2022 Mitral valve insufficiency [I34.0] 06/01/2022 Encounter for monitoring dofetilide therapy [Z5*06/01/2022 Ascending aorta dilatation (HCC) [I77.810] 06/18/2023 Persistent atrial fibrillation (HCC) [I48.19] 12/23/2024 Chronic diastolic heart failure (HCC) [I50.32] 10/17/2024 Obesity, Class I, BMI 30-34.9 [E66.811] 12/25/2024 Visit for monitoring Tikosyn therapy [Z51.81, Z*12/26/2024 Encounter Status:Closed by MARIBEL FRANCO on 12/29/24 MIMI Observed: 12/29/2024 12:00 AM Status: COMPLETED Source: [facility] Telephone ([employer]) ANYA KAMARA ([id number]) 1950 M [place] Date Time Provider Department 12/29/24 JOSELYN REYES During your visit today, we recorded the following information about you: Dirk Thayer, UMAIR 12/29/2024 4:58 PM Signed Pt admitted for Tikosyn. D/c from hospital 12/26/2024 Per d/c instrusction pt to have EKG 1 week after d/c. Please scheduled pt for EKG on 01/02/2025. Evelyn Gaming 12/30/2024 9:30 AM Signed Called LVM and sent pt a MYC. Evelyn Gaming 12/31/2024 9:58 AM Signed Called pt and scheduled. Allergies As of Date: 12/29/2024 Noted Allergy Reaction PERCOCET (OXYCODONE-ACETAMINOPHEN)09/15/2016 9 - Itching Comments: Pt took 2 doses close together (per patient) Date Reviewed: 12/26/2024 Reviewed by: Rios Hernandez RN - Fully Assessed Reason for Visit: Appointment [186] Prescriptions as of 12/31/2024 - dofetilide (TIKOSYN) 250 mcg capsule Take 1 capsule by mouth two times a day. - albuterol HFA (PROVENTIL HFA, VENTOLIN HFA) 90 mcg/actuation inhaler Inhale 1 puff as instructed every 6 hours as needed for wheezing/shortness of breath. - fluticasone-salmeterol (ADVAIR DISKUS) 100-50 mcg/dose inhaler Inhale 1 puff as instructed two times a day. - pantoprazole DR (PROTONIX) 40 mg tablet Take 40 mg by mouth once daily. - apixaban (ELIQUIS) 5 mg tab(s) Take 1 tablet by mouth two times a day. - LORAZEPAM ORAL Take 0.5 mg by mouth as needed. - losartan (COZAAR) 25 mg tablet Take 1 tablet by mouth once daily. - thiamine (VITAMIN B1) 100 mg tablet 1 tablet by ORAL/FEEDING TUBE route once daily. - benzonatate (TESSALON PERLES) 100 mg capsule Take 2 capsules by mouth three times daily as needed for cough for up to 20 doses. - finasteride (PROSCAR) 5 mg tablet once daily. - tamsulosin (FLOMAX) 0.4 mg ORAL Cp24 Take 1 capsule by mouth daily at bedtime. 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] 01/07/2022 Elevated LFTs [R79.89] 01/07/2022 Anemia [D64.9] 01/07/2022 Elevated serum creatinine [R79.89] 01/07/2022 Chest pain [R07.9] 01/08/2022 Supratherapeutic INR [R79.1] 01/09/2022 Steroid-induced hyperglycemia [R73.9, T38.0X5A] 01/09/2022 COPD (chronic obstructive pulmonary disease) (H*01/10/2022 CKD (chronic kidney disease) stage 2, GFR 60-89*01/11/2022 Subacute frontal sinusitis [J01.10] 01/13/2022 Atrial fibrillation (HCC) [I48.91] 02/08/2022 Mitral valve insufficiency [I34.0] 06/01/2022 Encounter for monitoring dofetilide therapy [Z5*06/01/2022 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 HNO ID: [id number] Author: SUZY BHATTI APRN.MAMMAL CONTROL AGENT Service: Cardiovascular Medicine Author Type: Nurse Practitioner Type: Discharge Summary Filed: 12/26/2024 14:28 Note Text: Attestation signed by Rob Ballesteros MD at 12/26/2024 4:06 PM [facility] STAFF PHYSICIAN NOTE OF PERSONAL INVOLVEMENT IN CARE I have reviewed the documentation obtained and documented by the Nurse Practitioner and I have personally performed the substantive portion of the visit which includes the medical decision making. I have discussed the case and management of the patient's care. Discharge Management: I personally spent 20 minutes in the discharge management of this patient. STAFF PHYSICIAN: Rob Ballesteros MD DATE OF SERVICE: December 26, 2024 TIME OF SERVICE: 4:06 PM Department of Cardiovascular Medicine Discharge Summary (Template ID [id number]) PATIENT NAME: Anya Kamara ADMISSION DATE: 12/23/2024 DISCHARGE DATE: 12/26/2024 Attending Physician: Rob Ballesteros MD Code Status: Full Code Primary Service: Electrophysiology, Hvi Admission Diagnosis: Persistent atrial fibrillation, visit for monitoring Tikosyn therapy Final Diagnosis: Persistent atrial fibrillation, visit for monitoring Tikosyn therapy Active Hospital Problems Diagnosis POA Persistent atrial fibrillation (HCC) Yes Encounter for monitoring dofetilide therapy Yes Chronic diastolic heart failure (HCC) Yes CKD (chronic kidney disease) stage 2, GFR 60-89 ml/min Yes COPD (chronic obstructive pulmonary disease) (HCC) Yes COPD with acute exacerbation (HCC) Yes shelter current use of anticoagulant Yes BRENDA on CPAP Yes Primary hypertension Yes Mixed hyperlipidemia Yes Malignant neoplasm of prostate (HCC) Yes Resolved Hospital Problems No resolved problems to display. The following problems are present on admission at this time: Anemia due to unspecified cause. Chronic Congestive Heart Failure unknown which is diastolic and compensated. Chronic pulmonary disease Hypertension, well controlled. Malignant neoplasm prostate and lung Obesity Class 1 Body mass index is 33.64 kg/m?. continue current outpatient treatment plan AND current medications for these conditions. Reason for Hospitalization: Tikosyn up titration for persistent atrial fibrillation Hospital Course: The patient was admitted for Tikosyn loading in sinus bradycardia. The patient reported uninterrupted anticoagulation for at least 3 weeks. Baseline QT/QTc was 464/451 ms and baseline estimated creatinine clearance was 73.8 mL/min. Metoprolol succinate was discontinued on admission due to bradycardia with HR in the 40's while awake. Tikosyn 250 mcg BID was initiated. Following the 4th dose of Tikosyn, it was learned that patient was self administering home medications including metoprolol. He was advised to adhere to hospital administered medications and follow updated medication list upon discharge The patient's QTc was monitored and remained stable on Tikosyn 250 mcg every 12 hours. Following the 6th dose of Tikosyn, the patient was discharged home in stable condition. The patient was instructed on the importance of taking Tikosyn 12 hours apart, discussing any new medications with a medical provider and obtaining EKG and lab work one week following discharge and then every 3 months in order to have the Tikosyn prescription refilled. Consults: None Major Procedure or Operation: None Other Procedures, Testing AND Radiology: Admission EKG 12/23/2024: Discharge EKG 12/26/2024: Discharge Assessment: BP 141/68 Pulse 60 Temp 36.6 ?C (97.9 ?F) (Oral) Resp 18 Wt 110.6 kg (243 lb 13.3 oz) SpO2 96% BMI 33.07 kg/m? General Appearance: Well developed, Well nourished and No distress HEENT: PERRLA, EOM's intact and No lesions Lungs: Clear and Respiratory effort: normal Heart: Regular rate AND rhythm, S1, S2 normal and no edema Abdomen: Soft, Round, Bowel sounds present Skin: Warm, Dry and No rash on chest, arms or legs Musculoskeletal: No deformities and No joint deformities, CLAUDIO equally Neurologic/Psychiatric: Oriented to time, place AND person, Alert and No gross focal neurologic deficits Patient Condition at Discharge: Stable Disposition: Home with Self Care Information Provided to the Patient: Patient given copy of After Visit Summary which included activity instructions, diet instructions, wound care instructions, medication instructions and follow up appointment. ALLERGIES Allergen Reactions Percocet [Oxycodone* Itching Pt took 2 doses close together (per patient) Discharge Medications: Medication List CHANGE how you take these medications dofetilide 250 mcg capsule Commonly known as: TIKOSYN Take 1 capsule by mouth two times a day. What changed: medication strength how much to take CONTINUE taking these medications albuterol HFA 90 mcg/actuation inhaler Commonly known as: PROVENTIL HFA, VENTOLIN HFA apixaban 5 mg tab(s) Commonly known as: ELIQUIS Take 1 tablet by mouth two times a day. benzonatate 100 mg capsule Commonly known as: TESSALON PERLES Take 2 capsules by mouth three times daily as needed for cough for up to 20 doses. finasteride 5 mg tablet Commonly known as: PROSCAR fluticasone-salmeterol 100-50 mcg/dose inhaler Commonly known as: ADVAIR DISKUS LORAZEPAM PO losartan 25 mg tablet Commonly known as: COZAAR Take 1 tablet by mouth once daily. pantoprazole DR 40 mg tablet Commonly known as: PROTONIX tamsulosin 0.4 mg Commonly known as: FLOMAX Take 1 capsule by mouth daily at bedtime. thiamine 100 mg tablet Commonly known as: VITAMIN B1 1 tablet by ORAL/FEEDING TUBE route once daily. STOP taking these medications loperamide 2 mg cap(s) Commonly known as: IMODIUM metoprolol succinate ER 25 mg 24 hr tablet Commonly known as: TOPROL XL Where to Get Your Medications These medications were sent to [facility] [address] [place] [address] Hours: Sunday-Sunday 7am-8pm, Sunday, Sunday and Holidays 9am-5pm dofetilide 250 mcg capsule Transitions of Care Critical Issues: Outpatient Management: Are there important medication changes and/or outstanding issues that need to be addressed: - Stop Metoprolol succinate - Start Tikosyn 250 mcg every 12 hours What is the plan for follow up: - Have EKG, BMP, and Magnesium checked in 7-10 days post discharge, - The patient will follow up in EP clinic in 3 months with EKG, BMP and magnesium level prior to appointment. Future Appointments: Future Appointments Date Time Provider Department Center 12/29/2024 7:30 AM [facility] 01/21/2025 1:00 PM NURSE VIVIANE STEINER [facility] 04/02/2025 9:00 AM EKGJ1-4 [facility] [id number] 04/02/2025 9:30 AM Patricia Tong APRN.MAMMAL CONTROL AGENT [facility] 05/12/2025 2:00 PM Елена Hwang MD [facility] hospital Highest Readmission Risk Score: 11 The 30 day readmissions risk score is derived from an internally validated risk model which evaluates patient level characteristics, utilization history, medication orders and lab results up until the day of discharge. Patients with a score of 39 or above are considered highest risk for readmission. Specific patient level drivers will be listed at the bottom of the summary. The patient's risk for 30-day readmission is determined using the following contributing factors: Predictive Model Details 10% (Low) Factor Value Calculated 12/26/2024 05:20 -9% Admission Provider Speciality CARDIOLOGY [facility] READMISSION RISK Model 8% diagnosis count 25 -8% Hospital Unit HOSP MAIN J083 -7% Sodium (Avg) 140.33 -7% Admissions (365d) 1 -6% procedure count 3 6% ED visits (365d) 1 -6% ED Encounter 0 -5% Alexei Scale 22 -5% Observations (365d) 0 Electronically SIGNED by Licensed Independent Practitioner: Suzy Bhatti APRN.[place] Care Coordination Discharge Management: I personally spent greater than 30 minutes involved in the discharge management of this patient. CASE MANAGEM Observed: 12/26/2024 11:34 AM Status: COMPLETED Source: [facility] HNO ID: [id number] Author: KATHRYN ESPARZA, ? Service: ? Author Type: ? Type: Care Mgt Progress Note Filed: 12/26/2024 11:35 Note Text: CARE MANAGEMENT PROGRESS NOTE SERVICE DATE: 12/26/2024 SERVICE TIME: 11:08 am LOS: 3 days IMM Follow Up Copy Given: Yes Copy given to:: Patient Method: In Person SIGNATURE: Kathryn Esparza PATIENT NAME: Anya Kamara DATE: December 26, 2024 TIME: 11:34 AM CASE MANAGEM Observed: 12/26/2024 10:40 AM Status: COMPLETED Source: [facility] HNO ID: [id number] Author: GARCÍA NIXON RN Service: Care Management Author Type: Registered Nurse Type: Care Mgt Progress Note Filed: 12/26/2024 10:40 Note Text: CARE MANAGEMENT PROGRESS NOTE SERVICE DATE: 12/26/2024 SERVICE TIME: 10:40 AM LOS: 3 days Needs Prior to Discharge: None This patient has been re-screened by Care Management and continues to have no CM facilitated needs identified at this time. Should this change and new transition planning needs have been identified please contact the Transitional Warehouse Distribution Associate or Administrative Manager listed in the Care Teams or contact the Care Management Department at [phone]. Care Management will continue to monitor. Please see Treatment Team for Care Management Weekend/Holiday coverage. SIGNATURE: García Nixon RN PATIENT NAME: Anya Kamara DATE: December 26, 2024 TIME: 10:40 AM PT ED Observed: 12/26/2024 10:05 AM Status: COMPLETED Source: [facility] HNO ID: [id number] Author: MITZY ORDONEZ RPh Service: Pharmacy Author Type: Pharmacist Type: Patient Education Filed: 12/26/2024 10:06 Note Text: NO HF MEDICATION EDUCATION Patient Name:Seferino Kamara Service Date: 12/26/2024 Service Time: 10:05 AM Heart Failure Education Counseling not indicated Other Admitted for dofetilide up-titration Current Inpatient Medications: Current Facility-Administered Medications Medication Dose Route Frequency NaCl 0.9% iv flush bag 20 mL INTRAVENOUS PRN apixaban 5 mg tab(s) (ELIQUIS) 5 mg ORAL BID losartan 25 mg tab(s) (COZAAR) 25 mg ORAL DAILY pantoprazole DR 40 mg tab(s) (PROTONIX) 40 mg ORAL DAILY (6 AM) finasteride 5 mg tab(s) (PROSCAR) 5 mg ORAL DAILY tamsulosin 0.4 mg cap(s) (FLOMAX) 0.4 mg ORAL AT BEDTIME mometasone-formoterol 100-5 mcg/actuation 2 puff inhaler (DULERA) 2 puff INHALATION BID FURTHER RECOMMENDATIONS (IF ANY): none SIGNATURE: Mitzy Ordonez RPh PAGER: [phone] MAGNESIUM SERPL-MCNC Collected: 12/26/2024 8:29 AM S tatus: F Source: [facility] Order Comment: Specimen Type : BLOOD SPECIMEN Ordering Facility: [facility] Address: [address] [place], [place] [id number] TYPE CODE TESTS RESULT OUT OF RANGE REFERENCE UNITS LAB 29897-9(LOINC) Magnesium SerPl-mCnc 2.1 1.7-2.3 mg/dL Performed By: #### 85065-7, 72725-8 #### [facility] CLIA [id number] [address] [place] [address] [place] [id number] [place] BAS METAB 2000 PNL SERPL Collected: 8:29 AM Status: F Source: [facility] Order Comment: Specimen Type : BLOOD SPECIMEN Ordering Facility: [facility] Address: [address] [place] [address] TYPE CODE TESTS RESULT OUT OF RANGE REFERENCE UNITS LAB 2345-7(LOINC) Glucose SerPl-mCnc 104 High 74-99 mg/dL Result Comment: The [place] Diabetes Association (ADA) provides guidance for cutoff values for fasting glucose and random glucose. The ADA defines fasting as no caloric intake for at least 8 hours. Fasting plasma glucose results between 100 to 125 mg/dL indicate increased risk for diabetes (prediabetes). Fasting plasma glucose results greater than or equal to 126 mg/dL meet the criteria for diagnosis of diabetes. In the absence of unequivocal hyperglycemia, results should be confirmed by repeat testing. In a patient with classic symptoms of hyperglycemia or hyperglycemic crisis, random plasma glucose results greater than or equal to 200 mg/dL meet the criteria for diagnosis of diabetes. Reference: Standards of Medical Care in Diabetes 2016, [place] Diabetes Association. Diabetes Care. 2016.39(Suppl 1). LAB 3094-0(LOINC) BUN SerPl-mCnc 17 9-24 mg/dL LAB 2160-0(LOINC) Creat SerPl-mCnc 1.07 0.73-1.22 mg/dL LAB 2951-2(LOINC) Sodium SerPl-sCnc 141 136-144 mmol/L LAB 2823-3(LOINC) Potassium SerPl-sCnc 4.3 3.7-5.1 mmol/L LAB 2075-0(LOINC) Chloride SerPl-sCnc 106 98-107 mmol/L LAB 8-9(LOINC) CO2 SerPl-sCnc 22 22-30 mmol/L LAB 24686-4(LOINC) Anion Gap SerPl-sCnc 13 8-15 mmol/L LAB 60560-0(LOINC) Calcium SerPl-mCnc 9.8 8.5-10.2 mg/dL LAB 26223-9(LOINC) eGFRcr SerPlBld CKD-EPI 2020 72 >=60 mL/min/1. 73m??? Result Comment: Estimated Gl omerular Filtration Rate (eGFR) is calculated using the 2020 CKD-EPI creatinine equation. This equation utilizes serum creatinine, sex, and age as parameters. The creatinine assay has traceable calibration to isotope dilution-mass spectrometry. Refer to KDIGO guidelines for clinical interpretation. In patients with unstable renal function, e.g. those with acute kidney injury, the eGFR may not accurately reflect actual GFR. Performed By: #### 45108-1, 02255-9 #### [facility] CLIA [id number] [address] [place] [address] OF [facility] ECG COMPLETE Observed: 12/25/2024 11:00 AM Status: F Source: [facility] Ventricular Rate : 51 BPM Atrial Rate : 51 BPM P-R Interval : 206 ms QRS Duration : 116 ms Q-T Interval : 474 ms QTC Calculation(Bazett) : 436 ms Calculated P [place] : 81 degrees Calculated R [place] : -52 degrees Calculated T [place] : -24 degrees SINUS BRADYCARDIA LEFT AXIS DEVIATION NONSPECIFIC ST ABNORMALITY ABNORMAL ECG Confirmed by GAVIN COLLINS MD ([id number]) on 02/06/2025 1:40:20 PM NAME : ANYA KAMARA PID : [id number] : 1950 Gender : Male Race : ORD : [id number] Procedure Date : Dec 25 2024 11:00:03 Edit Date : Feb 06 2025 13:40:26 Diagnosis: SINUS BRADYCARDIA LEFT AXIS DEVIATION NONSPECIFIC ST ABNORMALITY ABNORMAL ECG Confirmed by GAVIN COLLINS MD ([id number]) on 02/06/2025 1:40:20 PM Test Reason : Tikosyn Location : 383 : J83 J83-11 Overread By : GAVIN COLLINS MD Edited By : GAVIN COLLINS MD Referred By : DIO ANAYA Acquired by : NOE SMITH PROGRESS Observed: 12/25/2024 10:56 AM Status: COMPLETED Source: [facility] HNO ID: [id number] Author: VIOLETTE RIVERA APRN.MAMMAL CONTROL AGENT Service: Cardiovascular Medicine Author Type: Nurse Practitioner Type: Progress Notes Filed: 12/25/2024 17:39 Note Text: [facility] CARDIOVASCULAR MEDICINE PROGRESS NOTE SERVICE DATE: 12/25/2024 SERVICE TIME: 1055 PRIMARY SERVICE: Electrophysiology, Hvi HOSPITAL DAY: # 2 SB 40s-50s on tele, QTc acceptable Discontinued metoprolol however patient has continued to take metoprolol succinate 12.5 mg BID Advised him to adhere to hospital administered medications and follow updated medication list upon discharge. He expressed his concern regarding receiving a billed for hospital administered medications and prefers to take his supplied medication; however medications are not in the bottle and cannot be verified without them Continue dofetilide load as able DC tomorrow pending 11 am EKG PHYSICAL EXAM BP 127/61 Pulse (!) 54 Temp 36.7 ?C (98 ?F) (Oral) Resp 18 Wt 112.3 kg (247 lb 9.2 oz) SpO2 96% BMI 33.58 kg/m? No intake or output data in the 24 hours ending 12/25/24 1556 General: Well appearing, in no acute distress. Skin: No clubbing, no cyanosis. Eyes: Extra ocular movements intact Oropharynx: Teeth in good repair. Neck: No jugular venous distention, no carotid bruits, carotids have a normal upstroke, no palpable thyromegaly. Lungs: Clear to auscultation bilaterally, no wheezing or rhonchi. Heart: Regular rhythm, PMI not displaced, S1, S2 normal, no S3, no S4, no heaves, no rub and no murmur. Abdomen: Soft, nontender, Extremities: No peripheral edema . Grade 2/4 distal pulses bilaterally. Neuro: Oriented to person, place and time, alert, cooperative, gait coordinated. MEDICATIONS Current Facility-Administered Medications Medication Dose Route Frequency NaCl 0.9% iv flush bag 20 mL INTRAVENOUS PRN apixaban 5 mg tab(s) (ELIQUIS) 5 mg ORAL BID losartan 25 mg tab(s) (COZAAR) 25 mg ORAL DAILY pantoprazole DR 40 mg tab(s) (PROTONIX) 40 mg ORAL DAILY (6 AM) finasteride 5 mg tab(s) (PROSCAR) 5 mg ORAL DAILY tamsulosin 0.4 mg cap(s) (FLOMAX) 0.4 mg ORAL AT BEDTIME mometasone-formoterol 100-5 mcg/actuation 2 puff inhaler (DULERA) 2 puff INHALATION BID dofetilide 250 mcg cap(s) (TIKOSYN) 250 mcg ORAL q 12 H 9a/9p DATA Recent Labs 12/23/24 0957 WBC 7.63 HB 12.0* HCT 36.6* PLT 310 Recent Labs 12/25/24 0649 12/24/24 0754 12/23/24 0957 NA 140 142 139 K 4.2 4.3 4.1 CO2 24 24 24 BUN 22 21 21 CREAT 1.17 1.21 1.12 GLUC 98 115* 117* MG 2.1 2.2 2.1 IMAGING ASSESSMENT AND PLAN HISTORY Anya Kamara is an 74 year old male with pmhx of: Persistent atrial fibrillation CKD Stage 2 COPD On advair and PRN albuterol at home Mixed hyperlipidemia Prostate Cancer + BPH On tamsulosin and finasteride Suspected lung carcinoma with iam to liver Current ongoing work up with oncology, GI, and PCP CC/REASON FOR ADMISSION: Direct admit for dofetilide loading for symptomatic atrial fibrillation He has not missed any doses of apixaban in the last three weeks and in sinus rhythm HOSPITAL COURSE: Baseline QT/QTc was 460/440 ms ( in NSR) and baseline estimated creatinine clearance was 73.8 mL/min (based on SCr of 1.12 mg/dL). Metoprolol was discontinued on admission due to bradycardia HR ~40 bpm whole awake. Dofetilide 250 mcg BID was initiated. Following the fourth dose on dofetilide learned patient was self administered home medications including metoprolol. Encouraged to take hospital administered medications so we can adjusted and make recommendation safely IMPRESSION/PLAN: Persistent Atrial fibrillation - Onset: ~2016 - Symptoms: fatigue, activity intolerance, chest discomfort - LVEF (06/2023) LVEF 58% LAV 76 mL 32 ml/m? +1 MR - TS: normal 2022 - AF refractory to sotalol - On dofetilide 125 mcg every 12 hours AF refractory to therapy - S/P PFA PVI +PWI ablation 11/07/24 - Maintained on apixaban CHADS2-Vasc Score Breakdown 4 Total Score 2 Age >= 75 years old 1 History of CHF 1 History of hypertension - Dofetilide load as able THINGS TO DO/COMMUNICATE Replete electrolytes as needed Dofetilide load as able Anticipated discharge 12/26/24 For all active hospital problems BELOW: see history assessment and plan above in Care Coordination note above Case to be discussed with staff.- Rob Ballesteros MD Active Hospital Problems Diagnosis Date Noted Persistent atrial fibrillation (HCC) 12/23/2024 Priority: A Encounter for monitoring dofetilide therapy 06/01/2022 Priority: A Chronic diastolic heart failure (HCC) 10/17/2024 CKD (chronic kidney disease) stage 2, GFR 60-89 ml/min 01/11/2022 Overview Note: COPD (chronic obstructive pulmonary disease) (HCC) 01/10/2022 COPD with acute exacerbation (HCC) 01/07/2022 shelter current use of anticoagulant 01/07/2022 BRENDA on CPAP 01/07/2022 Primary hypertension Mixed hyperlipidemia Malignant neoplasm of prostate (HCC) 09/12/2007 For communication after 5 pm on weekdays and after 12 pm on weekends, please page the following: - Clinical Cardiology patients on all floors: page [phone] - Other Cardiology patients on J5 and J6: page [phone] - Other Cardiology patients on J7 and J8: page [phone] SIGNATURE: Violette Rivera APRN.CNP PATIENT NAME: Anya Kamara DATE: December 25, 2024 TIME: 10:56 AM PAGER/CONTACT #: [phone] NURSING PROG Observed: 12/25/2024 7:30 AM Status: COMPLETED Source: [facility] ID: [id number] Author: DEVONTE MORENO RN Service: Nursing Author Type: Registered Nurse Type: Nursing Progress Note Filed: 12/25/2024 07:33 Note Text: Patient declining administration of hospital medications, prefers to take his home medications. Patient educated on the importance of administered medications being tracked in the MAR, patient educated by this RN as well as MD covering overnight. Patient continues to decline. Patient reported taking home Eliquis and Flomax. covering overnight aware. NURSING PROG Observed: 12/25/2024 7:15 AM Status: COMPLETED Source: [facility] HNO ID: [id number] Author: RIOS HERNANDEZ RN Service: Nursing Author Type: Registered Nurse Type: Nursing Progress Note Filed: 12/26/2024 07:17 Note Text: Pt continues to refuses IV insertion and continues to take home medication. Educated on both issues; primary team AND nursing management aware. BAS METAB 2000 PNL SERPL Collected: 6:49 AM Status: F Source: [facility] Order Comment: Specimen Type : BLOOD SPECIMEN Ordering Facility: [facility] Address: [address] [place] [address] TYPE CODE TESTS RESULT OUT OF RANGE REFERENCE UNITS LAB 2345-7(LOINC) Glucose SerPl-mCnc 98 74-99 mg/dL Result Comment: The [place] Diabetes Association (ADA) provides guidance for cutoff values for fasting glucose and random glucose. The ADA defines fasting as no caloric intake for at least 8 hours. Fasting plasma glucose results between 100 to 125 mg/dL indicate increased risk for diabetes (prediabetes). Fasting plasma glucose results greater than or equal to 126 mg/dL meet the criteria for diagnosis of diabetes. In the absence of unequivocal hyperglycemia, results should be confirmed by repeat testing. In a patient with classic symptoms of hyperglycemia or hyperglycemic crisis, random plasma glucose results greater than or equal to 200 mg/dL meet the criteria for diagnosis of diabetes. Reference: Standards of Medical Care in Diabetes 2016, [place] Diabetes [employer]. Diabetes Care. 2016.39(Suppl 1). LAB 3094-0(LOINC) BUN SerPl-mCnc 22 9-24 mg/dL LAB 2160-0(LOINC) Creat SerPl-mCnc 1.17 0.73-1.22 mg/dL LAB 2951-2(LOINC) Sodium SerPl-sCnc 140 136-144 mmol/L LAB 2823-3(LOINC) Potassium SerPl-sCnc 4.2 3.7-5.1 mmol/L LAB 2075-0(LOINC) Chloride SerPl-sCnc 103 98-107 mmol/L LAB 2028-9(LOINC) CO2 SerPl-sCnc 24 22-30 mmol/L LAB 75182-6(LOINC) Anion Gap SerPl-sCnc 13 8-15 mmol/L LAB 28120-5(LOINC) Calcium SerPl-mCnc 9.8 8.5-10.2 mg/dL LAB 66210-8(LOINC) eGFRcr SerPlBld CKD-EPI 2020 65 >=60 mL/min/1. 73m??? Result Comment: Estimated Gl omerular Filtration Rate (eGFR) is calculated using the 2020 CKD-EPI creatinine equation. This equation utilizes serum creatinine, sex, and age as parameters. The creatinine assay has traceable calibration to isotope dilution-mass spectrometry. Refer to KDIGO guidelines for clinical interpretation. In patients with unstable renal function, e.g. those with acute kidney injury, the eGFR may not accurately reflect actual GFR. Performed By: #### 76445-6, 73445-2 #### [facility] CLIA [id number] [address] [place] [address] OF [facility] MAGNESIUM SERPL-MCNC Collected: 12/25/2024 6:49 AM S tatus: F Source: [facility] Order Comment: Specimen Type : BLOOD SPECIMEN Ordering Facility: [facility] Address: [address] [place] [address] TYPE CODE TESTS RESULT OUT OF RANGE REFERENCE UNITS LAB 09383-7([facility]) Magnesium SerPl-mCnc 2.1 1.7-2.3 mg/dL Performed By: #### 86029-1, 05085-6 #### [facility] CLIA [id number] [address] [place] [address] [place] PROGRESS Observed: 12/24/2024 12:12 PM Status: COMPLETED Source: [facility] HNO ID: [id number] Author: VIOLETTE RIVERA APRN.MAMMAL CONTROL AGENT Service: Cardiovascular Medicine Author Type: Nurse Practitioner Type: Progress Notes Filed: 12/24/2024 18:02 Note Text: [facility] CARDI[facility]ULAR [facility]ICINE PROGRESS NOTE SERVICE DATE: 12/24/2024 SERVICE TIME: 1212 PRIMARY SERVICE: Electrophysiology, Hvi HOSPITAL DAY: # 1 SB on teleTolerating dofetilide loading Sleeping, not interrupted PHYSICAL EXAM BP 138/68 Pulse (!) 57 Temp 36.6 ?C (97.9 ?F) (Oral) Resp 18 Wt 111.8 kg (246 lb 7.6 oz) SpO2 96% BMI 33.43 kg/m? Intake/Output Summary (Last 24 hours) at 12/24/2024 1802 Last data filed at 12/24/2024 0919 Gross per 24 hour Intake 990 ml Output -- Net 990 ml MEDICATIONS Current Facility-Administered Medications Medication Dose Route Frequency NaCl 0.9% iv flush bag 20 mL INTRAVENOUS PRN apixaban 5 mg tab(s) (ELIQUIS) 5 mg ORAL BID losartan 25 mg tab(s) (COZAAR) 25 mg ORAL DAILY pantoprazole DR 40 mg tab(s) (PROTONIX) 40 mg ORAL DAILY (6 AM) finasteride 5 mg tab(s) (PROSCAR) 5 mg ORAL DAILY tamsulosin 0.4 mg cap(s) (FLOMAX) 0.4 mg ORAL AT BEDTIME mometasone-formoterol 100-5 mcg/actuation 2 puff inhaler (DULERA) 2 puff INHALATION BID dofetilide 250 mcg cap(s) (TIKOSYN) 250 mcg ORAL q 12 H 9a/9p DATA Recent Labs 12/23/24 0957 WBC 7.63 HB 12.0* HCT 36.6* PLT 310 Recent Labs 12/24/24 0754 12/23/24 0957 NA 142 139 K 4.3 4.1 CO2 24 24 BUN 21 21 CREAT 1.21 1.12 GLUC 115* 117* MG 2.2 2.1 IMAGING ASSESSMENT AND PLAN HISTORY Anya Kamara is an 74 year old male with pmhx of: Persistent atrial fibrillation Chronic diastolic heart failure CKD Stage 2 COPD Mixed hyperlipidemia Prostate Cancer Suspected lung carcinoma CC/REASON FOR ADMISSION: Direct admit for dofetilide loading for symptomatic atrial fibrillation He has not missed any doses of apixaban HOSPITAL COURSE: Baseline QT/QTc was 460/440 ms and baseline estimated creatinine clearance was 73.8 mL/min (based on SCr of 1.12 mg/dL). . Dofetilide 250 mcg BID was initiated. IMPRESSION/PLAN: Persistent Atrial fibrillation - Onset: ~2016 - Symptoms: fatigue, activity intolerance, chest discomfort - LVEF (06/2023) LVEF 58% LAV 76 mL 32 ml/m? +1 MR - TS: normal 2022 - AF refractory to sotalol - On dofetilide 125 mcg every 12 hours AF refractory to therapy - S/P PFA PVI +PWI ablation 11/07/24 - Maintained on apixaban CHADS2-Vasc Score Breakdown 4 Total Score 2 Age >= 75 years old 1 History of CHF 1 History of hypertension - Dofetilide load as able THINGS TO DO/COMMUNICATE Replete electrolytes as needed Dofetilide load as able Anticipated discharge 12/26/24 For all active hospital problems BELOW: see history assessment and plan above in Care Coordination note above Case to be discussed with staff. 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 Ventricular Rate : 55 BPM Atrial Rate : 55 BPM P-R Interval : 186 ms QRS Duration : 130 ms Q-T Interval : 484 ms QTC Calculation(Bazett) : 463 ms Calculated P [place] : 84 degrees Calculated R [place] : -51 degrees Calculated T [place] : 54 degrees SINUS BRADYCARDIA LEFT AXIS DEVIATION NONSPECIFIC INTRAVENTRICULAR BLOCK ABNORMAL ECG Confirmed by MD FOFANA HEBA ([id number]) on 01/05/2025 9:02:05 PM NAME : ANYA KAMARA PID : [id number] : 1950 Gender : Male Race : ORD : [id number] Procedure Date : Dec 24 2024 10:56:30 Edit Date : Jan 05 2025 21:02:09 Diagnosis: SINUS BRADYCARDIA LEFT AXIS DEVIATION NONSPECIFIC INTRAVENTRICULAR BLOCK ABNORMAL ECG Confirmed by MD FOFANA HEBA ([id number]) on 01/05/2025 9:02:05 PM Test Reason : Tikosyn Location : 383 : J83 J083-11 Overread By : MD FOFANA HEBA Edited By : MD FOFANA HEBA Referred By : DIO ANAYA Acquired by : SEVERO MILLER BAS METAB 1999 PNL SERPL Collected: 7:54 AM Status: F Source: [facility] Order Comment: Specimen Type : BLOOD SPECIMEN Ordering Facility: [facility] Address: [address] [place] [address] TYPE CODE TESTS RESULT OUT OF RANGE REFERENCE UNITS LAB 2345-7(LOINC) Glucose SerPl-mCnc 115 High 74-99 mg/dL Result Comment: The [place] Diabetes Association (ADA) provides guidance for cutoff values for fasting glucose and random glucose. The ADA defines fasting as no caloric intake for at least 8 hours. Fasting plasma glucose results between 100 to 125 mg/dL indicate increased risk for diabetes (prediabetes). Fasting plasma glucose results greater than or equal to 126 mg/dL meet the criteria for diagnosis of diabetes. In the absence of unequivocal hyperglycemia, results should be confirmed by repeat testing. In a patient with classic symptoms of hyperglycemia or hyperglycemic crisis, random plasma glucose results greater than or equal to 200 mg/dL meet the criteria for diagnosis of diabetes. Reference: Standards of Medical Care in Diabetes 2016, [place] Diabetes Association. Diabetes Care. 2016.39(Suppl 1). LAB 3094-0(LOINC) BUN SerPl-mCnc 21 9-24 mg/dL LAB 2160-0(LOINC) Creat SerPl-mCnc 1.21 0.73-1.22 mg/dL LAB 2951-2(LOINC) Sodium SerPl-sCnc 142 136-144 mmol/L LAB 2823-3(LOINC) Potassium SerPl-sCnc 4.3 3.7-5.1 mmol/L LAB 2075-0(LOINC) Chloride SerPl-sCnc 107 98-107 mmol/L LAB 8-9(LOINC) CO2 SerPl-sCnc 24 22-30 mmol/L LAB 34644-4(LOINC) Anion Gap SerPl-sCnc 11 8-15 mmol/L LAB 31317-2(LOINC) Calcium SerPl-mCnc 9.2 8.5-10.2 mg/dL LAB 67344-0(INC) eGFRcr SerPlBld CKD-EPI 2020 62 >=60 mL/min/1. 73m??? Result Comment: Estimated Gl omerular Filtration Rate (eGFR) is calculated using the 2020 CKD-EPI creatinine equation. This equation utilizes serum creatinine, sex, and age as parameters. The creatinine assay has traceable calibration to isotope dilution-mass spectrometry. Refer to KDIGO guidelines for clinical interpretation. In patients with unstable renal function, e.g. those with acute kidney injury, the eGFR may not accurately reflect actual GFR. Performed By: #### 50238-9, 86192-8 #### [facility] CLIA [id number] [address] [place] [address] OF [facility] MAGNESIUM SERPL-MCNC Collected: 12/24/2024 7:54 AM S tatus: F Source: [facility] Order Comment: Specimen Type : BLOOD SPECIMEN Ordering Facility: [facility] Address: [address] [place] [address] TYPE CODE TESTS RESULT OUT OF RANGE REFERENCE UNITS LAB 62832-7([facility]) Magnesium SerPl-mCnc 2.2 1.7-2.3 mg/dL Performed By: #### 28362-3, #### [facility] CLIA [id number] [address] [place] [address] STATES OF [facility] ECG COMPLETE Observed: 12/23/2024 11:26 PM Status: F Source: [facility] Ventricular Rate : 54 BPM Atrial Rate : 54 BPM P-R Interval : 190 ms QRS Duration : 132 ms Q-T Interval : 482 ms QTC Calculation(Bazett) : 457 ms Calculated P [place] : 69 degrees Calculated R [place] : -52 degrees Calculated T [place] : 51 degrees SINUS BRADYCARDIA LEFT AXIS DEVIATION NONSPECIFIC INTRAVENTRICULAR BLOCK ABNORMAL ECG Confirmed by NEENA WOODSON MD ([id number]) on 01/06/2025 3:31:11 PM NAME : ANYA KAMARA PID : [id number] : 1950 Gender : Male Race : ORD : [id number] Procedure Date : Dec 23 2024 23:26:03 Edit Date : Jan 06 2025 15:32:10 Diagnosis: SINUS BRADYCARDIA LEFT AXIS DEVIATION NONSPECIFIC INTRAVENTRICULAR BLOCK ABNORMAL ECG Confirmed by NEENA WOODSON MD ([id number]) on 01/06/2025 3:31:11 PM Test Reason : Tikosyn Location : 383 : J83 J083-11 Overread By : NEENA WOODSON MD Edited By : NEENA WOODSON MD Referred By : DIO ANAYA Acquired by : STEFANIE AVILES ECG COMPLETE Observed: 12/23/2024 5:23 PM Status: F Source: [facility] Ventricular Rate : 57 BPM Atrial Rate : 57 BPM P-R Interval : 192 ms QRS Duration : 122 ms Q-T Interval : 464 ms QTC Calculation(Bazett) : 451 ms Calculated P [place] : 84 degrees Calculated R [place] : -51 degrees Calculated T [place] : 33 degrees SINUS BRADYCARDIA LEFT AXIS DEVIATION NONSPECIFIC INTRAVENTICULAR BLOCK ABNORMAL ECG Confirmed by NEENA WOODSON MD ([id number]) on 01/06/2025 3:31:06 PM NAME : ANYA KAMARA PID : [id number] : 1950 Gender : Male Race : ORD : [id number] Procedure Date : Dec 23 2024 17:23:43 Edit Date : Jan 06 2025 15:31:54 Diagnosis: SINUS BRADYCARDIA LEFT AXIS DEVIATION NONSPECIFIC INTRAVENTICULAR BLOCK ABNORMAL ECG Confirmed by NEENA WOODSON MD ([id number]) on 01/06/2025 3:31:06 PM Test Reason : Arrhythmia Location : 483 : J83NS J083- Overread By : NEENA WOODSON MD Edited By : NEENA WOODSON MD Referred By : DIO ANAYA Acquired by : [email or web address], ECG COMPLETE Observed: 12/23/2024 5:23 PM Status: F Source: [facility] Ventricular Rate : 57 BPM Atrial Rate : 57 BPM P-R Interval : 196 ms QRS Duration : 128 ms Q-T Interval : 464 ms QTC Calculation(Bazett) : 451 ms Calculated P [place] : 92 degrees Calculated R [place] : -52 degrees Calculated T [place] : 49 degrees SINUS BRADYCARDIA LEFT AXIS DEVIATION NONSPECIFIC INTRAVENTRICULAR BLOCK ABNORMAL ECG Confirmed by NEENA WOODSON MD ([id number]) on 01/06/2025 3:30:21 PM NAME : ANYA KAMARA PID : [id number] : 1950 Gender : Male Race : ORD : [id number] Procedure Date : Dec 23 2024 17:23:02 Edit Date : Jan 06 2025 15:30:32 Diagnosis: SINUS BRADYCARDIA LEFT AXIS DEVIATION NONSPECIFIC INTRAVENTRICULAR BLOCK ABNORMAL ECG Confirmed by NEENA WOODSON MD ([id number]) on 01/06/2025 3:30:21 PM Test Reason : Arrhythmia [facility] : [facility] Overread By : NEENA WOODSON MD Edited By : NEENA WOODSON MD Referred By : DIO ANAYA Acquired by : ABNER knutson MGT INSHEFALI BARR Observed: 12/23/2024 1:06 PM Status: COMPLETED Source: [facility] HNO ID: [id number] Author: GARCÍA NIXON RN Service: Care Management Author Type: Registered Nurse Type: Care Mgt Initial Assessment Filed: 12/23/2024 13:06 Note Text: CARE MANAGEMENT PROGRESS NOTE SERVICE DATE: 12/23/2024 SERVICE TIME: 1:06 PM LOS: 0 days Needs Prior to Discharge: None This patient has been screened for Care Management Transitional Planning Services. At this time, it does not appear this patient will require transition planning services. Should this change, and the patient require transition planning services during this admission, please contact Case Management. SIGNATURE: García Nixon RN PATIENT NAME: Anya Kamara DATE: December 23, 2024 TIME: 1:06 PM CBC PNL BLD AUTO Collected: 9:57 AM Status: F Source: [facility] Order Comment: Specimen Type : BLOOD SPECIMEN Ordering Facility: [facility] Address: [address] [place] [address] TYPE CODE TESTS RESULT OUT OF RANGE REFERENCE UNITS LAB 6690-2([facility]) WBC # Bld Auto 7.63 3.70-11.00 k/uL LAB 789-8(INC) RBC # Bld Auto 4.02 Low 4.20-6.00 m/uL LAB 718-7([facility]) Hgb Bld-mCnc 12.0 Low 13.0-17.0 g/dL LAB 4544-3([facility]) Hct VFr Bld Auto 36.6 Low 39.0-51.0 % LAB 787-2([facility]) MCV RBC Auto 91.0 80.0-100.0 fL LAB 785-6([facility]) MCH RBC Qn Auto 29.9 26.0-34.0 pg LAB 786-4([facility]) MCHC RBC Auto-mCnc 32.8 30.5-36.0 g/dL LAB 83579-1([facility]) RDW RBC-Rto 13.9 11.5-15.0 % LAB 777-3([facility]) Platelet # Bld Auto 310 150-400 k/uL LAB 26353-5([facility]) PMV Bld Auto 9.0 9.0-12.7 fL LAB 771-6([facility]) nRBC # Bld Auto <0.01 <0.01 k/uL Performed By: #### 15565-2 # ### [facility] CLIA [id number] [address] [place] [address] [place] MAGNESIUM SERPL-MCNC Collected: 12/23/2024 9:57 AM S tatus: F Source: [facility] Order Comment: Specimen Type : BLOOD SPECIMEN Ordering Facility: [facility] Address: [address] [place] [address] TYPE CODE TESTS RESULT OUT OF RANGE REFERENCE UNITS LAB 73492-0([facility]) Magnesium SerPl-mCnc 2.1 1.7-2.3 mg/dL Performed By: #### 63459-9, 55157-3 #### [facility] CLIA [id number] [address] [place] [address] [place] COMP METAB 2000 PNL SERPL Collected: 9:57 AM Status: F Source: [facility] Order Comment: Specimen Type : BLOOD SPECIMEN Ordering Facility: [facility] Address: [address] [place] [address] TYPE CODE TESTS RESULT OUT OF RANGE REFERENCE UNITS LAB 2885-2(LOINC) Prot SerPl-mCnc 6.7 6.3-8.0 g/dL LAB 1751-7(LOINC) Albumin SerPl-mCnc 3.8 Low 3.9-4.9 g/dL LAB 55121-5(LOINC) Calcium SerPl-mCnc 9.4 8.5-10.2 mg/dL LAB 1975-2(LOINC) Bilirub SerPl-mCnc 0.3 0.2-1.3 mg/dL LAB 6768-6(LOINC) ALP SerPl-cCnc 376 High 38-113 U/L LAB 1920-8(LOINC) AST SerPl-cCnc 41 High 14-40 U/L LAB 1742-6(LOINC) ALT SerPl-cCnc 43 10-54 U/L LAB 2345-7(LOINC) Glucose SerPl-mCnc 117 High 74-99 mg/dL Result Comment: The [place] Diabetes Association (ADA) provides guidance for cutoff values for fasting glucose and random glucose. The ADA defines fasting as no caloric intake for at least 8 hours. Fasting plasma glucose results between 100 to 125 mg/dL indicate increased risk for diabetes (prediabetes). Fasting plasma glucose results greater than or equal to 126 mg/dL meet the criteria for diagnosis of diabetes. In the absence of unequivocal hyperglycemia, results should be confirmed by repeat testing. In a patient with classic symptoms of hyperglycemia or hyperglycemic crisis, random plasma glucose results greater than or equal to 200 mg/dL meet the criteria for diagnosis of diabetes. Reference: Standards of Medical Care in Diabetes 2016, [place] Diabetes Association. Diabetes Care. 2016.39(Suppl 1). LAB 3094-0(LOINC) BUN SerPl-mCnc 21 9-24 mg/dL LAB 2160-0(LOINC) Creat SerPl-mCnc 1.12 0.73-1.22 mg/dL LAB 2951-2(LOINC) Sodium SerPl-sCnc 139 136-144 mmol/L LAB 2823-3(LOINC) Potassium SerPl-sCnc 4.1 3.7-5.1 mmol/L LAB 2075-0(LOINC) Chloride SerPl-sCnc 105 98-107 mmol/L LAB 8-9(LOINC) CO2 SerPl-sCnc 24 22-30 mmol/L LAB 51601-3(LOINC) Anion Gap SerPl-sCnc 10 8-15 mmol/L LAB 10547-9(LOINC) eGFRcr SerPlBld CKD-EPI 2020 69 >=60 mL/min/1. 73m??? Result Comment: Estimated Gl omerular Filtration Rate (eGFR) is calculated using the 2020 CKD-EPI creatinine equation. This equation utilizes serum creatinine, sex, and age as parameters. The creatinine assay has traceable calibration to isotope dilution-mass spectrometry. Refer to KDIGO guidelines for clinical interpretation. In patients with unstable renal function, e.g. those with acute kidney injury, the eGFR may not accurately reflect actual GFR. Performed By: #### 84511-1, 60959-4 #### [facility] CLIA [id number] [address] [place] [address] [place] PT PNL PPP Collected: 12/23/2024 9:57 AM Status: F Source: [facility] Order Comment: Specimen Type : BLOOD SPECIMEN Ordering Facility: [facility] Address: [address] [place] [address] TYPE CODE TESTS RESULT OUT OF RANGE REFERENCE UNITS LAB 5902-2(LOINC) Prothrombin time 11.7 9.7-13.0 sec LAB 6301-6(LOINC) INR PPP 1.1 0.9-1.3 Result Comment: Vitamin K An tagonist (VKA) Therapeutic Range: INR 2 to 3 (Target INR of 2.5) Note: For patients treated with VKA drugs, such as warfarin, the [place] [employer] 2012 Guideline recommends a therapeutic INR range of 2 to 3 (target INR of 2.5). This recommendation includes high-risk patients with antiphospholipid syndrome with previous arterial or venous thromboembolism, current-generation mechanical or bioprosthetic aortic heart valve replacement. Note: Patients with mechanical aortic valve replacement and additional risk factors for thromboembolic events (atrial fibrillation, previous thromboembolism, LV dysfunction, hypercoagulable conditions) or an older generation mechanical AVR (i.e., ball in-Cage) or any mechanical MVR should have a INR therapeutic range of 2.5 to 3.5 (target INR of 3). Patel DELA CRUZ, et al. Chest 2012, 141:7S-47S Marcelo RA, et al. [facility] 2017, 70: 252-289 Performed By: #### 97746-7 # ### [facility] CLIA [id number] [address] [place] [address] NURSING PROG Observed: 12/23/2024 9:35 AM Status: COMPLETED Source: [facility] HNO ID: [id number] Author: LOUISA QUISPE RN Service: Nursing Author Type: Registered Nurse Type: Nursing Progress Note Filed: 12/23/2024 09:39 Note Text: Admission/Transfer Note PATIENT NAME: Anya Kamara Patient Location: [place] [address] Room: [place] [address] Patient Admitted from home via ambulation in stable condition. Actions taken: Patient oriented to room, call light function, prescribed activities, Patient rights, and Quiet at night. The patient has been instructed on the plan of care for Tikosyn loading. Patient belongings with patient. Patient has been notified and educated on Observation Status. Emergency equipment at bedside, pt c/o 2/10 generalized pain/discomfort, orthos passed, bed locked in position AND call light within reach. This note was completed by: Louisa Quispe HISTORY PHYSICAL Observed: 12/23/2024 8:49 AM Status: COMPLETED Source: [facility] HNO ID: [id number] Author: VIOLETTE RIVERA APRN.CNP Service: Cardiovascular Medicine Author Type: Nurse Practitioner Type: H&P Filed: 12/23/2024 17:48 Note Text: Attestation signed by Rob Ballesterso MD at 12/24/2024 12:14 PM [facility] STAFF PHYSICIAN NOTE OF PERSONAL INVOLVEMENT IN CARE IMPRESSION: Patient is a 74 year old male with history of obesity ( BMI 33), BRENDA ( On CPAP),prostate cancer, GERD, ?lung carcinoma with mets to liver recently referred to established with oncology for staging , AAA, and persistent atrial fibrillation who presents for dofetilide up titration PLAN: Dofetilide load. Monitor QT. I have reviewed the documentation obtained and documented by the Nurse Practitioner and I have personally performed the substantive portion of the visit which includes the medical decision making. I have discussed the case and management of the patient's care. (Inpatient): I personally spent 60 total minutes total time in the management and care of this patient. STAFF PHYSICIAN: Rob Ballesteros MD DATE OF SERVICE: December 24, 2024 TIME OF SERVICE: 12:13 PM [facility] CARDI[facility]ULAR MEDICINE HISTORY AND PHYSICAL (Template ID [id number]) Anya Kamara [id number] PRIMARY SERVICE: Cardiovascular Medicine: Electrophysiology DATE OF ADMISSION: 12/23/2024 CHIEF COMPLAINT Symptomatic atrial fibrillation HISTORY OF PRESENT ILLNESS Anya Kamara is a 74 year old male obesity ( BMI 33), BRENDA ( On CPAP),prostate cancer, GERD, ?lung carcinoma with mets to liver recently referred to established with oncology for staging , AAA, and persistent atrial fibrillation who presents for dofetilide up titration Previously atrial fibrillation was refractory to sotalol. On 11/07/24 he underwent atrial fibrillation ablation. Post operative Zio showed persistent atrial fibrillation. He presents in sinus rhythm at ~60 bpm .When in atrial fibrillation/flutter, he notes chest discomfort, activity in tolerance,and fatigue. He denies chest pain, shortness of breath, orthopnea, cough, edema, palpitations, PND, lightheadedness or syncope.He does not use tobacco products, alcohol, or elicit substances. He has not missed any days of anticoagulation in the last three weeks The following problems are present on admission at this time: Anemia due to unspecified cause. Chronic Congestive Heart Failure unknown which is diastolic and compensated. Chronic pulmonary disease Hypertension, well controlled. Malignant neoplasm prostate and lung Obesity Class 1 Body mass index is 33.64 kg/m?. continue current outpatient treatment plan AND current medications for these conditions. PAST MEDICAL HISTORY PAST MEDICAL HISTORY Diagnosis Date A-fib (HCC) [...] HX VASECTOMY UNI/BI SPX W/POSTOP SEMEN EXAMS FAMILY HISTORY FAMILY HISTORY Problem Relation Age of Onset Diabetes Father Prostate Cancer Brother SOCIAL HISTORY SOCIAL HISTORY[1] HOME MEDICATIONS albuterol HFA (PROVENTIL HFA, VENTOLIN HFA) 90 mcg/actuation inhalerInhale 1 puff as instructed every 6 hours as needed for wheezing/shortness of breath.Disp: Rfl: fluticasone-salmeterol (ADVAIR DISKUS) 100-50 mcg/dose inhalerInhale 1 puff as instructed two times a day.Disp: Rfl: pantoprazole DR (PROTONIX) 40 mg tabletTake 40 mg by mouth once daily.Disp: Rfl: dofetilide (TIKOSYN) 125 mcg capsuleTAKE 1 CAPSULE BY MOUTH TWICE DAILYDisp: 180 capsuleRfl: 0 apixaban (ELIQUIS) 5 mg tab(s)Take 1 tablet by mouth two times a day.Disp: 180 tabletRfl: 3 losartan (COZAAR) 25 mg tabletTake 1 tablet by mouth once daily.Disp: 30 tabletRfl: 0 benzonatate (TESSALON PERLES) 100 mg capsuleTake 2 capsules by mouth three times daily as needed for cough for up to 20 doses.Disp: 20 capsuleRfl: 0 (Patient taking differently: Take 200 mg by mouth three times a day as needed for cough.) finasteride (PROSCAR) 5 mg tabletonce daily.Disp: Rfl: tamsulosin (FLOMAX) 0.4 mg ORAL [id number] 1 capsule by mouth daily at bedtime.Disp: 90 capsuleRfl: 3 LORAZEPAM ORALTake 0.5 mg by mouth as needed.Disp: Rfl: metoprolol succinate ER (TOPROL XL) 25 mg 24 hr tabletTake 0.5 tablets by mouth once daily.Disp: 15 tabletRfl: 11 thiamine (VITAMIN B1) 100 mg tablet1 tablet by ORAL/FEEDING TUBE route once daily.Disp: 30 tabletRfl: 0 loperamide (IMODIUM) 2 mg cap(s)Take 2 mg by mouth four times daily as needed for diarrhea.Disp: Rfl: INPATIENT MEDICATIONS Current Facility-Administered Medications Medication Dose Route Frequency NaCl 0.9% iv flush bag 20 mL INTRAVENOUS PRN apixaban 5 mg tab(s) (ELIQUIS) 5 mg ORAL BID [START ON 12/24/2024] losartan 25 mg tab(s) (COZAAR) 25 mg ORAL DAILY [START ON 12/24/2024] metoprolol succinate ER 12.5 mg tab(s) (TOPROL XL) 12.5 mg ORAL DAILY [START ON 12/24/2024] pantoprazole DR 40 mg tab(s) (PROTONIX) 40 mg ORAL DAILY (6 AM) [START ON 12/24/2024] finasteride 5 mg tab(s) (PROSCAR) 5 mg ORAL DAILY tamsulosin 0.4 mg cap(s) (FLOMAX) 0.4 mg ORAL AT BEDTIME mometasone-formoterol 100-5 mcg/actuation 2 puff inhaler (DULERA) 2 puff INHALATION BID dofetilide 250 mcg cap(s) (TIKOSYN) 250 mcg ORAL q 12 H 9a/9p ALLERGIES ALLERGIES Allergen Reactions Percocet [Oxycodone* Itching Pt took 2 doses close together (per patient) REVIEW OF SYSTEMS GENERAL: Negative for malaise, significant weight loss/weight gain, fever or chills RESPIRATORY: Negative for cough, hemoptysis, shortness of breath with/without exertion CARDIOVASCULAR: Negative for chest pain, leg swelling, or palpitations GI: Negative for abdominal discomfort, blood in stools or black stools : Negative hematuria, frequency or burning NEURO: Negative for lightheadedness or syncope SKIN: negative for bruising, bleeding, hematoma PHYSICAL EXAM BP 125/60 Pulse 62 Temp 36.4 ?C (97.6 ?F) (Oral) Resp 18 Wt 112.5 kg (248 lb 0.3 oz) SpO2 96% BMI 33.64 kg/m? General: Well appearing, in no acute distress. Skin: No clubbing, no cyanosis. Eyes: Extra ocular movements intact Oropharynx: Teeth in good repair. Neck: No jugular venous distention, no carotid bruits, carotids have a normal upstroke, no palpable thyromegaly. Lungs: Clear to auscultation bilaterally, no wheezing or rhonchi. Heart: Regular rhythm, PMI not displaced, S1, S2 normal, no S3, no S4, no heaves, no rub and no murmur. Abdomen: Soft, nontender, bowel sounds normal, no palpable organomegaly, no bruits. Extremities: No peripheral edema . Grade 2/4 distal pulses bilaterally. Neuro: Oriented to person, place and time, alert, cooperative, gait coordinated. DATA Laboratory: Recent Labs 12/23/24 0957 WBC 7.63 HB 12.0* HCT 36.6* PLT 310 Recent Labs 12/23/24 0957 NA 139 K 4.1 CO2 24 BUN 21 CREAT 1.12 GLUC 117* MG 2.1 Recent Labs 12/23/24 0957 INR 1.1 Cholesterol, Total (mg/dL) Date Value 03/20/2023 193 HDL Cholesterol (mg/dL) Date Value 03/20/2023 71 LDL Cholesterol, Calculated (mg/dL) Date Value 03/20/2023 107 Triglyceride (mg/dL) Date Value 03/20/2023 75 Hemoglobin A1C (%) Date Value 01/09/2022 5.8 NT Pro BNP Date Value Ref Range Status 11/07/2024 658 (H) <450 pg/mL Final TSH Date Value Ref Range Status 03/20/2023 1.470 0.270 - 4.200 mIU/L Final EKG: Echocardiogram: 07/07/24 CONCLUSIONS: - Technically difficult exam due to body habitus. - Exam indication: Nonsustained atrial fibrillation - The left ventricle is normal in size. Left ventricular systolic function is normal. EF = 58 ? 5% (2D biplane) Normal left ventricular diastolic function. - The right ventricle is normal in size. Right ventricular systolic function is normal. - The visualized aorta is dilated with a maximal dimension of 4.7 cm. - There is mild 1+ MR. - Exam was compared with the prior echocardiographic exam performed on 04/11/2023. Prior ascending aorta measured 4.5cm. Stress Testin CONCLUSIONS: - Technically difficult exam due to body habitus and suboptimal positioning. - Exam indication: Chest Pain - The exercise stress echo was negative for ischemia at 93 % of MPHR (7.0 METS). - Left ventricular systolic function is normal. EF = 66 ? 5% (2D biplane) Definity contrast used for endocardial border detection. - The right ventricle is normal in size. Right ventricular systolic function is normal. - Mild (1+) AI - Estimated right ventricular systolic pressure is 42 mmHg consistent with mild pulmonary hypertension. Estimated right atrial pressure is 5 mmHg. - Prior echocardiogram performed on 09/15/16 Other Radiology: ype of Monitor: Extended Monitoring-Zio Patch Enrollment Dates: 11/16/2024-11/28/2024 IRHYTHM FINDINGS: Patient had a min HR of 46 bpm, max HR of 176 bpm, and avg HR of 103 bpm. Predominant underlying rhythm was Atrial Fibrillation. 36 Supraventricular Tachycardia runs occurred, the run with the fastest interval lasting 5 beats with a max rate of 176 bpm, the longest lasting 15.4 secs with an avg rate of 100 bpm. Atrial Fibrillation occurred (61% burden), ranging from 57-172 bpm (avg of 128 bpm), the longest lasting 3 days 21 hours with an avg rate of 124 bpm. 2 Pauses occurred, the longest lasting 3.1 secs (19 bpm). Atrial Fibrillation was detected within +/- 45 seconds of symptomatic patient event(s). Isolated SVEs were rare (<1.0%), SVE Couplets were rare (<1.0%), and SVE Triplets were rare (<1.0%). Isolated VEs were rare (<1.0%, 1453), VE Triplets were rare (<1.0%, 42), and no VE Couplets were present. MD notification criteria for Rapid Atrial Fibrillation met - report posted prior to leaving [facility] ([facility]). ASSESSMENT AND PLAN HISTORY Anya Kamara is an 74 year old male with pmhx of: Persistent atrial fibrillation Chronic diastolic heart failure CKD Stage 2 COPD Mixed hyperlipidemia Prostate Cancer Suspected lung carcinoma CC/REASON FOR ADMISSION: Direct admit for dofetilide loading for symptomatic atrial fibrillation He has not missed any doses of apixaban HOSPITAL COURSE: Baseline QT/QTc was 460/440 ms and baseline estimated creatinine clearance was 73.8 mL/min (based on SCr of 1.12 mg/dL). . Dofetilide 250 mcg BID was initiated. IMPRESSION/PLAN: Persistent Atrial fibrillation - Onset: ~2016 - Symptoms: fatigue, activity intolerance, chest discomfort - LVEF (06/2023) LVEF 58% LAV 76 mL 32 ml/m? +1 MR - TS: normal 2022 - AF refractory to sotalol - On dofetilide 125 mcg every 12 hours AF refractory to therapy - S/P PFA PVI +PWI ablation 11/07/24 - Maintained on apixaban CHADS2-Vasc Score Breakdown 4 Total Score 2 Age >= 75 years old 1 History of CHF 1 History of hypertension - Dofetilide load as able THINGS TO DO/COMMUNICATE Replete electrolytes as needed Dofetilide load as able Anticipated discharge 12/26/24 For all active hospital problems BELOW: see history assessment and plan above in Care Coordination note above Problem Persistent Atrial Fibrillation (Hcc) Encounter for Monitoring Dofetilide Therapy Chronic Diastolic Heart Failure (Hcc) Ckd (Chronic Kidney Disease) Stage 2, Gfr 60-89 Ml/Min Patient had not had creatinine drawn since 2017 at that time his baseline creatinine was 1.16 with a GFR greater than 60 now he is in the 1.35 range 3 days in a row despite therapy this seems to be chronic kidney disease progression. 01/11/2022 Copd (Chronic Obstructive Pulmonary Disease) (Hcc) Copd With Acute Exacerbation (Hcc) Brenda On Cpap Fdc Current Use of Anticoagulant Primary Hypertension Mixed Hyperlipidemia Malignant Neoplasm of Prostate (Hcc) Exogenous Class 1 Obesity Case to be discussed with staff- MD Violette Campos, RADHA.MAMMAL CONTROL AGENT Pager [phone] (please see below for after hours communication) 12/23/2024 8:49 AM For communication after 5 pm on weekdays and after 12 pm on weekends, please page the following: - Clinical Cardiology patients on all floors: page [phone] - All other patients: after hours MIQUEL - page [phone] - For any urgent or emergent issues, [place] [phone] [1] Social History Tobacco Use Smoking status: Never Smokeless tobacco: Never Vaping Use Vaping status: Never Used Substance Use Topics Alcohol use: Not Currently Alcohol/week: 25.0 standard drinks of alcohol Types: 15 Standard drinks or equivalent, 10 Glasses of Wine (5oz) per week Drug use: No PLAN OF CARE Observed: 12/22/2024 5:30 PM Status: COMPLETED Source: [facility] HNO ID: [id number] Author: MELANIE PULIDO CPhT Service: Pharmacy Author Type: Nursing Home Physician Type: Plan of Care Filed: 12/22/2024 17:39 Note Text: Insurance investigation completed Patient has active prescription insurance: Yes - Patient's insurance is in-network with [facility] Insurance loaded into [place]: Already loaded Test claim was completed to verify insurance is active: Successful Is patient eligible for [facility]? No Reason for test claim: Dofetilide Dofetilide 500 mcg Qty: 60 capsules Day supply: 30 days Cost on Insurance: $47.00 Does patient have a deductible? No Dofetilide 250 mcg Qty: 60 capsules Day supply: 30 days Cost on Insurance: $47.00 Does patient have a deductible? No Dofetilide 125 mcg Qty: 60 capsules Day supply: 30 days Cost on Insurance: $40.43 Does patient have a deductible? No Total number of mak checks: 3 Is this mak check for inpatient or outpatient?: Outpatient Any questions, please contact your electrophysiology provider's office with any questions or concerns about the above information. Thank you (Prices may vary at different pharmacy locations, this is the cost at [facility]) If prior authorization is required, please send medication to designated pharmacy 24-48 hours in advance. Any questions, please reach out the medication clinic coordinator. Thank you. (Prices may vary at different pharmacy locations, this is the cost at [facility] on 12/22/2024). Melanie Pulido CPhT Medication Senior Payroll Administrator [phone] [id number] Observed: 12/08/2024 12:00 AM Status: COMPLETED Source: [facility] Telephone (CARDMN) ANYA KAMARA ([id number]) 1950 M [place] Date Time Provider Department 12/08/24 DIO ANAYA During your visit today, we recorded the following information about you: Perla Dupont 12/08/2024 9:48 AM Signed Abnormal Zio- patch was worn from 11/16/24 thru 11/28/24 61% [place] of A-fib At certain points there was a rapid heart rate @ 152 BPM (lasting 60-seconds). Located on strip 9, pg 15 36 Runs of SVT 2 Pauses- longest lasting 3.1 seconds Already posted Violette Smith, RN 12/19/2024 4:03 PM Signed Spoke to patient. Per Dr Anaya: BB Can you reach out. 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 On low dose Tikosyn. Would rec admission to [facility] main to attempt to up-titrate Tikosyn to 250 mcg BId. Tentatively hold a spot for a redo PVI / atypical AFL RFA in the event that increased Tikosyn fails. Patient is agreeable to tikosyn uptitration on Monday December 23, 2024. Patient instructed to come to Admitting at [facility] at 9am. Discussed that he/she will wear a portable monitor, can walk around nursing floor but can not leave floor. Can bring comfortable clothes from home to wear or wear pt. gown. Will have a private room/bath but will not be able to shower, as monitor can not be removed. Will have TV with cable, WiFi and can bring computor and can use cell phone. Room has a pull out bed and can have someone stay with them, if they would like. Will have first dose of medication that evening and will have an EKG 2 hours post med dose. Will have medication given every 12 hours with EKG 2 hours post. EKG will be reviewed by staff MD prior to next medication dose. Care team will consist of staff EP MD, EP fellows and CNPs. If patient does not convert to NSR, they will be scheduled for cardioversion prior to discharge. Patient will be admitted for 3 nights and be discharged either or Sunday afternoon, depending on admission date. Instructed to contact his insurance company to find out what medication co-pay will be. Instructed to contact EP MD's office if prior authorization is needed or if any questions. Will continue medication after discharge. Questions answered. Labs placed in EPIC. Bed reservation called in to Admitting. Violette Longoria RN Allergies As of Date: 12/08/2024 Noted Allergy Reaction PERCOCET (OXYCODONE-ACETAMINOPHEN)09/15/2016 9 - Itching Comments: Pt took 2 doses close together (per patient) Date Reviewed: 11/20/2024 Reviewed by: Urvashi Pruett LPN - Fully Assessed Reason for Visit: Results [95] Cmt: iRhythm Prescriptions as of 12/19/2024 - dofetilide (TIKOSYN) 125 mcg capsule TAKE 1 CAPSULE BY MOUTH TWICE DAILY - fluticasone-vilanterol (BREO ELLIPTA) 100-25 mcg/dose inhaler Inhale 1 inhalation as instructed once daily. - esomeprazole (NEXIUM) 40 mg capsule Take 40 mg by mouth daily before breakfast. - famotidine (PEPCID) 40 mg tablet Take 40 mg by mouth at bedtime as needed (Gerd). - apixaban (ELIQUIS) 5 mg tab(s) Take 1 tablet by mouth two times a day. - LORAZEPAM ORAL Take 0.5 mg by mouth as needed. - metoprolol succinate ER (TOPROL XL) 25 mg 24 hr tablet Take 0.5 tablets by mouth once daily. - losartan (COZAAR) 25 mg tablet Take 1 tablet by mouth once daily. - thiamine (VITAMIN B1) 100 mg tablet 1 tablet by ORAL/FEEDING TUBE route once daily. - benzonatate (TESSALON PERLES) 100 mg capsule Take 2 capsules by mouth three times daily as needed for cough for up to 20 doses. - loperamide (IMODIUM) 2 mg cap(s) Take 2 mg by mouth four times daily as needed for diarrhea. - finasteride (PROSCAR) 5 mg tablet once daily. - tamsulosin (FLOMAX) 0.4 mg ORAL Cp24 Take 1 capsule by mouth daily at bedtime. 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 current use of anticoagulant [Z79.01] 01/07/2022 Elevated LFTs [R79.89] 01/07/2022 Anemia [D64.9] 01/07/2022 Elevated serum creatinine [R79.89] 01/07/2022 Chest pain [R07.9] 01/08/2022 Supratherapeutic INR [R79.1] 01/09/2022 Steroid-induced hyperglycemia [R73.9, T38.0X5A] 01/09/2022 COPD (chronic obstructive pulmonary disease) (H*01/10/2022 Stage 3a chronic kidney disease (HCC) [N18.31] 01/11/2022 Subacute frontal sinusitis [J01.10] 01/13/2022 Atrial fibrillation (HCC) [I48.91] 02/08/2022 Mitral valve insufficiency [I34.0] 06/01/2022 Encounter for monitoring dofetilide therapy [Z5*06/01/2022 Ascending aorta dilatation (HCC) [I77.810] 06/18/2023 Encounter Status:Closed by PERLA DUPONT on 12/08/24 CNPN Observed: 11/21/2024 12:00 AM Status: COMPLETED Source: [facility] Telephone (JENNIFER) ANYA KAMARA ([id number]) 1950 M [place] Date Time Provider Department 11/21/24 JOSELYN REYES During your visit today, we recorded the following information about you: Dirk Thayer RN 11/21/2024 3:22 PM Signed Pt called in with update on HR for Cristian Reyes APRN. MAMMAL CONTROL AGENT HR this AM ranged from 101-133 over a bunch of tries. FERNANDO: 11/20/2024 We discussed your recent ablation and current symptoms: - You mentioned feeling fatigued and experiencing a persistent cough for the past 3-4 months. You have tried multiple medications for the cough without significant improvement. - You reported occasional sharp chest pains and a sensation of missed heartbeats. I listened to your heart and noted a fast heart rate. An EKG confirmed sinus tachycardia (a fast but regular heart rhythm). - You are currently taking Metoprolol (Toprol XL) 12.5 mg once daily. I recommend adjusting your dosage as follows: - Take 12.5 mg (half a tablet) when you get home today. - Take 25 mg (a full tablet) tonight and another 25 mg tomorrow morning. - Monitor your heart rate at home using your watch or blood pressure device and call our office tomorrow around 12:00 PM to report your heart rate. - Continue wearing your heart monitor for the full two weeks, if possible, to ensure accurate results. If it falls off early, we will use the data collected so far. Dirk Thayer RN 11/24/2024 10:01 AM Addendum Called pt, No answer. Left VM with provider message below: Please ask him to continue taking a whole tablet twice a day for the next 3-4 days. Then call us on Sunday or Sunday to let us know how his heart rate is. Per Joselyn Reyes APRN.MAMMAL CONTROL AGENT Allergies As of Date: 11/21/2024 Noted Allergy Reaction PERCOCET (OXYCODONE-ACETAMINOPHEN)09/15/2016 9 - Itching Comments: Pt took 2 doses close together (per patient) Date Reviewed: 11/20/2024 Reviewed by: Urvashi Pruett LPN - Fully Assessed Reason for Visit: Patient Update [1234] Cmt: HR Prescriptions as of 11/24/2024 - fluticasone-vilanterol (BREO ELLIPTA) 100-25 mcg/dose inhaler Inhale 1 inhalation as instructed once daily. - esomeprazole (NEXIUM) 40 mg capsule Take 40 mg by mouth daily before breakfast. - famotidine (PEPCID) 40 mg tablet Take 40 mg by mouth at bedtime as needed (Gerd). - dofetilide (TIKOSYN) 125 mcg capsule TAKE 1 CAPSULE BY MOUTH TWICE DAILY - apixaban (ELIQUIS) 5 mg tab(s) Take 1 tablet by mouth two times a day. - LORAZEPAM ORAL Take 0.5 mg by mouth as needed. - metoprolol succinate ER (TOPROL XL) 25 mg 24 hr tablet Take 0.5 tablets by mouth once daily. - losartan (COZAAR) 25 mg tablet Take 1 tablet by mouth once daily. - thiamine (VITAMIN B1) 100 mg tablet 1 tablet by ORAL/FEEDING TUBE route once daily. - benzonatate (TESSALON PERLES) 100 mg capsule Take 2 capsules by mouth three times daily as needed for cough for up to 20 doses. - loperamide (IMODIUM) 2 mg cap(s) Take 2 mg by mouth four times daily as needed for diarrhea. - finasteride (PROSCAR) 5 mg tablet once daily. - tamsulosin (FLOMAX) 0.4 mg ORAL Cp24 Take 1 capsule by mouth daily at bedtime. 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] 09/15/2016 Bilateral hearing loss [H91.93] 09/15/2016 Chronic headaches [R51.9, G89.29] 09/18/2016 09/18/2016 COPD with acute exacerbation (HCC) [J44.1] 01/07/2022 BRENDA on CPAP [G47.33] 01/07/2022 Obesity (BMI 35.0-39.9 without comorbidity) [E6*01/07/2022 shelter current use of anticoagulant [Z79.01] 01/07/2022 Elevated LFTs [R79.89] 01/07/2022 Anemia [D64.9] 01/07/2022 Elevated serum creatinine [R79.89] 01/07/2022 Chest pain [R07.9] 01/08/2022 Supratherapeutic INR [R79.1] 01/09/2022 Steroid-induced hyperglycemia [R73.9, T38.0X5A] 01/09/2022 COPD (chronic obstructive pulmonary disease) (H*01/10/2022 Stage 3a chronic kidney disease (HCC) [N18.31] 01/11/2022 Subacute frontal sinusitis [J01.10] 01/13/2022 Atrial fibrillation (HCC) [I48.91] 02/08/2022 Mitral valve insufficiency [I34.0] 06/01/2022 Encounter for monitoring dofetilide therapy [Z5*06/01/2022 Ascending aorta dilatation (HCC) [I77.810] 06/18/2023 Encounter Status:Closed by DIRK THAYER on 11/21/24 ECG COMPLETE Observed: 11/20/2024 2:03 PM Status: F Source: [facility] Ventricular Rate : 133 BPM Atrial Rate : 133 BPM P-R Interval : 144 ms QRS Duration : 108 ms Q-T Interval : 342 ms QTC Calculation(Bazett) : 509 ms Calculated R [place] : -59 degrees Calculated T [place] : 89 degrees ATRIAL TACHYCARDIA LEFT ANTERIOR FASCICULAR BLOCK NONSPECIFIC ST ABNORMALITY ABNORMAL ECG Confirmed by MD DANUTA, QARAB ([id number]) on 12/09/2024 4:24:41 PM NAME : ANYA KAMARA PID : [id number] : 1950 Gender : Male Race : ORD : [id number] Procedure Date : Nov 20 2024 14:03:25 Edit Date : Dec 09 2024 16:24:44 Diagnosis: ATRIAL TACHYCARDIA LEFT ANTERIOR FASCICULAR BLOCK NONSPECIFIC ST ABNORMALITY ABNORMAL ECG Confirmed by MD TIPTON QARAB ([id number]) on 12/09/2024 4:24:41 PM Test Reason : Post-OP Location : 211 : [place] [id number] Overread By : MD TIPTON QARAB Edited By : MD TIPTON QARAB Referred By : DIO ANAYA Acquired by : urvashi pruett lpn, WALEOV Observed: 11/20/2024 1:30 PM Status: COMPLETED Source: [facility] Office Visit (CARDMM) ANYA KAMARA ([id number]) 1950 M [facility] Date Time Provider Department 11/20/24 1:30 PM JOSELYN REYES During your visit today, we recorded the following information about you: Pulse Blood pressure Weight 134/minute 120/72 116 kg Joselyn Reyes APRN.MAMMAL CONTROL AGENT 11/20/2024 2:25 PM Signed [facility] [place] [facility] Department of Cardiovascular Medicine SECTION OF CLINICAL CARDIOLOGY OUTPATIENT VISIT DATE November 20, 2024 OUTPATIENT VISIT TYPE ESTABLISHED PRIMARY CARE PHYSICIAN: To use this Smartlink, specify the provider ID whose address you want to display, e.g., .PROVADDR[1 (where 1 is the provider ID). REFERRING PHYSICIAN: No referring provider defined for this encounter. CHIEF COMPLAINT: Follow up HISTORY OF PRESENT ILLNESS: Mr. Kamara is a 74 year old male with history of AFib, heart murmur, and aneurysm, who presents today for a cardiovascular medicine follow-up visit after I saw him October 20 just prior to his A-fib ablation procedure. That was done on November 07 at [facility]. The patient is a 74-year-old male with a history of atrial fibrillation, status post-ablation, presenting for follow-up. The patient reports persistent fatigue following his recent ablation procedure, which lasted approximately 6.5 hours. He experiences occasional sharp chest pains localized to the upper left side, which he describes as more intense than previous episodes. He also reports sensations of missed heartbeats. He is currently wearing a monitor car operator, which was applied on the and is scheduled to be worn for two weeks. He notes that his heart rate, as monitored by his watch, has ranged from 53 to 160 bpm, with frequent readings between 60 and 100 bpm. He reports a chronic cough persisting for 3-4 months, characterized by episodes lasting 30-40 minutes or longer. The cough is intermittent, with some days being cough-free and others dominated by continuous coughing. He has been treated with multiple medications, including antibiotics and four different cough suppressants, the latest of which is reportedly expensive. He has not yet consulted a apartment house manager. He also reports stomach pain, which he has been told may be related to gallbladder issues; an ultrasound has been scheduled. He reports significant sleep disturbances, often sleeping only 1.5 to 2.5 hours per night, though he occasionally achieves up to 7 hours. He attributes his persistent fatigue to this lack of sleep. He uses a CPAP machine consistently but does not maintain a regular sleep schedule. He has tried melatonin and a supplement called Relaxium without improvement. He takes magnesium nightly, which contains three different forms, including glycinate, and is unsure of the dosage. He also takes vitamin C 500 mg intermittently and vitamin D 2000 units daily, with occasional missed doses. He denies eating late at night. He uses albuterol as needed for coughing and another inhaler once daily. He takes metoprolol 12.5 mg once daily in the evening before bed. Subjective PAST MEDICAL HISTORY Diagnosis Date A-fib [...] Use Smoking status: Never Smokeless tobacco: Never Vaping Use Vaping status: Never Used Substance Use Topics Alcohol use: Not Currently Alcohol/week: 25.0 standard drinks of alcohol Types: 15 Standard drinks or equivalent, 10 Glasses of Wine (5oz) per week Drug use: No FAMILY HISTORY Problem Relation Age of Onset Diabetes Father Prostate Cancer Brother ALLERGIES: ALLERGIES Allergen Reactions Percocet [Oxycodone* Itching Pt took 2 doses close together (per patient) MEDICATIONS: fluticasone-vilanterol (BREO ELLIPTA) 100-25 mcg/dose inhaler Inhale 1 inhalation as instructed once daily. esomeprazole (NEXIUM) 40 mg capsule Take 40 mg by mouth daily before breakfast. famotidine (PEPCID) 40 mg tablet Take 40 mg by mouth at bedtime as needed (Gerd). dofetilide (TIKOSYN) 125 mcg capsule TAKE 1 CAPSULE BY MOUTH TWICE DAILY apixaban (ELIQUIS) 5 mg tab(s) Take 1 tablet by mouth two times a day. LORAZEPAM ORAL Take 0.5 mg by mouth as needed. metoprolol succinate ER (TOPROL XL) 25 mg 24 hr tablet Take 0.5 tablets by mouth once daily. losartan (COZAAR) 25 mg tablet Take 1 tablet by mouth once daily. thiamine (VITAMIN B1) 100 mg tablet 1 tablet by ORAL/FEEDING TUBE route once daily. loperamide (IMODIUM) 2 mg cap(s) Take 2 mg by mouth four times daily as needed for diarrhea. finasteride (PROSCAR) 5 mg tablet once daily. tamsulosin (FLOMAX) 0.4 mg ORAL Cp24 Take 1 capsule by mouth daily at bedtime. benzonatate (TESSALON PERLES) 100 mg capsule Take 2 capsules by mouth three times daily as needed for cough for up to 20 doses. (Patient not taking: Reported on 04/04/2024) Objective PHYSICAL EXAMINATION: Wt 116 kg (255 lb 11.7 oz) BMI 34.68 kg/m? General: Alert AND oriented, no acute distress. Skin: Normal. HEENT: Pupils equal, round. Oral cavity and oropharynx clear. Neck: Supple, no mass. Breast: Deferred. Respiratory: Wheezing noted on auscultation. Cardiovascular: Jugular venous pressure normal. Regular rate and rhythm, normal S1 and S2, no murmurs or added sounds. Abdomen: Soft, non-tender, non-distended, no masses palpable, no hepatosplenomegaly, normal bowel sounds. Genitourinary: Deferred. MSK: No joint swelling, erythema, or tenderness. Extremities: No clubbing, cyanosis, or edema. CARDIOVASCULAR MEDICINE TESTING: Electrocardiogram: sinus tachycardia, 133 bpm Last ECHO Result Conclusion ECHO Collected: 07/07/2024 2:44 PM (Final result) Impression: CONCLUSIONS: - Technically difficult exam due to body habitus. - Exam indication: Nonsustained atrial fibrillation - The left ventricle is normal in size. Left ventricular systolic function is normal. EF = 58 ? 5% (2D biplane) Normal left ventricular diastolic function. - The right ventricle is normal in size. Right ventricular systolic function is normal. - The visualized aorta is dilated with a maximal dimension of 4.7 cm. - There is mild 1+ MR. - Exam was compared with the prior CC echocardiographic exam performed on 04/11/2023. Prior ascending aorta measured 4.5cm. * * * Final * * * Last EKG Result Conclusion ECG COMPLETE Collected: 11/07/2024 2:18 PM (Preliminary result) Impression: SINUS BRADYCARDIA WITH PREMATURE SUPRAVENTRICULAR COMPLEXES LEFT ANTERIOR FASCICULAR BLOCK ABNORMAL ECG Last CT Result Conclusion CTA CHEST (GATED) W IVCON Exam End: 08/22/2024 1:19 PM (Final result) Impression: IMPRESSION: 1. Moderate dilation of the mid ascending aorta (4.7 cm, 17.0 cm2, 9.3 cm2/m) and mild ectasia/dilation of the aortic root (4.0 cm, 11.0 cm2). The remaining thoracic aorta is normal in course, caliber and has minimal atherosclerotic changes. No acute aortic pathology identified. 2. Normal pulmonary venous anatomy without pulmonary vein stenosis. 3. No left atrial or left atrial appendage thrombus. Mild biatrial dilation. 4. Small (<6 mm) non-calcified lung nodules. Incidental Finding: Follow-up Acuity: Incidental Finding: Solid: <6 mm (solitary or multiple) Routing Code: N/A Recommendation: No imaging follow-up is recommended Time Frame: N/A Comments: If there are risk factors for lung malignancy, a follow-up chest CT exam could be obtained in 12 months --END OF FINDING-- 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: ABEBE Transcribe Date/Time: Aug 22 2024 5:06P Dictated by : ZOILA VÁSQUEZ MD This examination was interpreted and the report reviewed and electronically signed by: ZOILA VÁSQUEZ MD on Aug 22 2024 5:51PM EST I have personally reviewed the Electrocardiogram. I personally interviewed, confirmed and edited the above information if obtained by others. Conclusion: 1. Chronic cough (R05.3) Persistent for 3-4 months, variable in intensity and frequency. Wheezing noted on auscultation. Patient has been on multiple medications without relief. Recent CT scan of the chest performed in August. Currently using albuterol inhaler as needed. - Continue using albuterol inhaler as needed. - Follow-up on results of the CT scan. - Consider referral to pulmonology if symptoms persist. 2. Obstructive sleep apnea (G47.33) Patient is compliant with CPAP therapy. Reports significant variability in sleep duration, ranging from 1.5 to 7 hours per night. Current sleep hygiene practices are inconsistent. - Educated patient on the importance of consistent sleep schedule and exposure to natural light in the morning and evening to regulate circadian rhythm. - Recommended continuation of magnesium supplementation, ensuring it does not contain magnesium oxide. - Consider referral to a sleep specialist for further evaluation and management. 3. Vitamin D deficiency (E55.9) Previous lab results from two years ago indicated suboptimal vitamin D levels. Patient is currently taking 2000 IU of vitamin D daily. - Continue current vitamin D supplementation of 2000 IU daily. - Recheck vitamin D levels to assess current status. 4. Paroxysmal atrial fibrillation (HCC) (I48.0) Recent ablation performed. Currently on metoprolol 12.5 mg daily. EKG shows sinus tachycardia with a heart rate of 133 bpm. Patient reports episodes of palpitations and irregular heartbeats. Wearing a monitor car operator for two weeks, with removal scheduled for tomorrow. - Increase metoprolol to 12.5 mg immediately, followed by 25 mg tonight and 25 mg tomorrow morning. - Monitor heart rate at home using available devices. - Patient to report heart rate to the office by 12:00 PM tomorrow. - Await results of the monitor car operator for further evaluation. - Follow-up appointment with Dr. Hwang in April. PLAN AND RECOMMENDATIONS: We discussed your recent ablation and current symptoms: - You mentioned feeling fatigued and experiencing a persistent cough for the past 3-4 months. You have tried multiple medications for the cough without significant improvement. - You reported occasional sharp chest pains and a sensation of missed heartbeats. I listened to your heart and noted a fast heart rate. An EKG confirmed sinus tachycardia (a fast but regular heart rhythm). - You are currently taking Metoprolol (Toprol XL) 12.5 mg once daily. I recommend adjusting your dosage as follows: - Take 12.5 mg (half a tablet) when you get home today. - Take 25 mg (a full tablet) tonight and another 25 mg tomorrow morning. - Monitor your heart rate at home using your watch or blood pressure device and call our office tomorrow around 12:00 PM to report your heart rate. - Continue wearing your heart monitor for the full two weeks, if possible, to ensure accurate results. If it falls off early, we will use the data collected so far. We discussed your sleep difficulties: - You reported inconsistent sleep patterns, sometimes sleeping as little as 1-2 hours per night. You are using a CPAP machine nightly, which is good. - To improve your sleep, I recommend: - Establishing a consistent bedtime and wake-up routine. - Getting outside for 10-15 minutes in the morning to expose your eyes to natural light, which helps regulate your circadian rhythm. - Avoiding eating right before bed. - Continuing to take magnesium at night, but ensure it does not contain magnesium oxide, as it is less effective. Aim for 400-500 mg of magnesium glycinate, citrate, or threonate. - Consider avoiding ajwm-fkm-dorbqht sleep aids like Relaxium if they are not effective for you. We discussed your vitamin intake: - Continue taking Vitamin D 2,000 IU daily and [place]-3 supplements together for better absorption. Missing a day or two occasionally is fine, but try to stay consistent. - You may continue taking Vitamin C (500 mg) as you have been. We discussed your upcoming tests and appointments: - You mentioned an upcoming ultrasound to evaluate your gallbladder due to stomach pain. Please follow through with this test as scheduled. - You have an appointment in April with Dr. Hwang. This is a follow-up with the provider managing your care. Please call our office if your symptoms worsen or if you have any questions about your care plan. Joselyn Reyes APRN.CNP CONTACT INFORMATION: Joselyn Reyes APRN.CNP Cardiology Nurse Practitioner Section of Regional Cardiology [facility] Dept of Cardiovascular Medicine [facility] [place] [address] [place] [address] Office Office This note was partially generated using [employer] voice recognition system and may contain errors related to that system including grammar, punctuation, spelling, and words that may be inappropriate Joselyn Reyes APRN.CNP 11/20/2024 2:11 PM Signed We discussed your recent ablation and current symptoms: - You mentioned feeling fatigued and experiencing a persistent cough for the past 3-4 months. You have tried multiple medications for the cough without significant improvement. - You reported occasional sharp chest pains and a sensation of missed heartbeats. I listened to your heart and noted a fast heart rate. An EKG confirmed sinus tachycardia (a fast but regular heart rhythm). - You are currently taking Metoprolol (Toprol XL) 12.5 mg once daily. I recommend adjusting your dosage as follows: - Take 12.5 mg (half a tablet) when you get home today. - Take 25 mg (a full tablet) tonight and another 25 mg tomorrow morning. - Monitor your heart rate at home using your watch or blood pressure device and call our office tomorrow around 12:00 PM to report your heart rate. - Continue wearing your heart monitor for the full two weeks, if possible, to ensure accurate results. If it falls off early, we will use the data collected so far. We discussed your sleep difficulties: - You reported inconsistent sleep patterns, sometimes sleeping as little as 1-2 hours per night. You are using a CPAP machine nightly, which is good. - To improve your sleep, I recommend: - Establishing a consistent bedtime and wake-up routine. - Getting outside for 10-15 minutes in the morning to expose your eyes to natural light, which helps regulate your circadian rhythm. - Avoiding eating right before bed. - Continuing to take magnesium at night, but ensure it does not contain magnesium oxide, as it is less effective. Aim for 400-500 mg of magnesium glycinate, citrate, or threonate. - Consider avoiding gyqm-oqi-vqvzpwd sleep aids like Relaxium if they are not effective for you. We discussed your vitamin intake: - Continue taking Vitamin D 2,000 IU daily and [place]-3 supplements together for better absorption. Missing a day or two occasionally is fine, but try to stay consistent. - You may continue taking Vitamin C (500 mg) as you have been. We discussed your upcoming tests and appointments: - You mentioned an upcoming ultrasound to evaluate your gallbladder due to stomach pain. Please follow through with this test as scheduled. - You have an appointment in April with Dr. Lynn. This is a follow-up with the provider managing your care. Please call our office if your symptoms worsen or if you have any questions about your care plan. Joselyn Reyes APRN.MAMMAL CONTROL AGENT Allergies As of Date: 11/20/2024 Noted Allergy Reaction PERCOCET (OXYCODONE-ACETAMINOPHEN)09/15/2016 9 - Itching Comments: Pt took 2 doses close together (per patient) Date Reviewed: 11/20/2024 Reviewed by: Urvashi Pruett LPN - Fully Assessed Reason for Visit: Follow up [Other] Primary Visit Diagnosis:Paroxysmal atrial fibrillation (HCC) [I48.0] Other Visit Diagnoses:Chronic cough [R05.3] Obstructive sleep apnea [G47.33] Vitamin D deficiency [E55.9] Prescriptions as of 11/20/2024 - fluticasone-vilanterol (BREO ELLIPTA) 100-25 mcg/dose inhaler Inhale 1 inhalation as instructed once daily. - esomeprazole (NEXIUM) 40 mg capsule Take 40 mg by mouth daily before breakfast. - famotidine (PEPCID) 40 mg tablet Take 40 mg by mouth at bedtime as needed (Gerd). - dofetilide (TIKOSYN) 125 mcg capsule TAKE 1 CAPSULE BY MOUTH TWICE DAILY - apixaban (ELIQUIS) 5 mg tab(s) Take 1 tablet by mouth two times a day. - LORAZEPAM ORAL Take 0.5 mg by mouth as needed. - metoprolol succinate ER (TOPROL XL) 25 mg 24 hr tablet Take 0.5 tablets by mouth once daily. - losartan (COZAAR) 25 mg tablet Take 1 tablet by mouth once daily. - thiamine (VITAMIN B1) 100 mg tablet 1 tablet by ORAL/FEEDING TUBE route once daily. - benzonatate (TESSALON PERLES) 100 mg capsule Take 2 capsules by mouth three times daily as needed for cough for up to 20 doses. - loperamide (IMODIUM) 2 mg cap(s) Take 2 mg by mouth four times daily as needed for diarrhea. - finasteride (PROSCAR) 5 mg tablet once daily. - tamsulosin (FLOMAX) 0.4 mg ORAL Cp24 Take 1 capsule by mouth daily at bedtime. 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 [Z79.01] 01/07/2022 Elevated LFTs [R79.89] 01/07/2022 Anemia [D64.9] 01/07/2022 Elevated serum creatinine [R79.89] 01/07/2022 Chest pain [R07.9] 01/08/2022 Supratherapeutic INR [R79.1] 01/09/2022 Steroid-induced hyperglycemia [R73.9, T38.0X5A] 01/09/2022 COPD (chronic obstructive pulmonary disease) (H*01/10/2022 Stage 3a chronic kidney disease (HCC) [N18.31] 01/11/2022 Subacute frontal sinusitis [J01.10] 01/13/2022 Atrial fibrillation (HCC) [I48.91] 02/08/2022 Mitral valve insufficiency [I34.0] 06/01/2022 Encounter for monitoring dofetilide therapy [Z5*06/01/2022 Ascending aorta dilatation (HCC) [I77.810] 06/18/2023 Other instructions from your clinician: We discussed your recent ablation and current symptoms: - You mentioned feeling fatigued and experiencing a persistent cough for the past 3-4 months. You have tried multiple medications for the cough without significant improvement. - You reported occasional sharp chest pains and a sensation of missed heartbeats. I listened to your heart and noted a fast heart rate. An EKG confirmed sinus tachycardia (a fast but regular heart rhythm). - You are currently taking Metoprolol (Toprol XL) 12.5 mg once daily. I recommend adjusting your dosage as follows: - Take 12.5 mg (half a tablet) when you get home today. - Take 25 mg (a full tablet) tonight and another 25 mg tomorrow morning. - Monitor your heart rate at home using your watch or blood pressure device and call our office tomorrow around 12:00 PM to report your heart rate. - Continue wearing your heart monitor for the full two weeks, if possible, to ensure accurate results. If it falls off early, we will use the data collected so far. We discussed your sleep difficulties: - You reported inconsistent sleep patterns, sometimes sleeping as little as 1-2 hours per night. You are using a CPAP machine nightly, which is good. - To improve your sleep, I recommend: - Establishing a consistent bedtime and wake-up routine. - Getting outside for 10-15 minutes in the morning to expose your eyes to natural light, which helps regulate your circadian rhythm. - Avoiding eating right before bed. - Continuing to take magnesium at night, but ensure it does not contain magnesium oxide, as it is less effective. Aim for 400-500 mg of magnesium glycinate, citrate, or threonate. - Consider avoiding oxfb-ryp-kygnhdf sleep aids like Relaxium if they are not effective for you. We discussed your vitamin intake: - Continue taking Vitamin D 2,000 IU daily and [place]-3 supplements together for better absorption. Missing a day or two occasionally is fine, but try to stay consistent. - You may continue taking Vitamin C (500 mg) as you have been. We discussed your upcoming tests and appointments: - You mentioned an upcoming ultrasound to evaluate your gallbladder due to stomach pain. Please follow through with this test as scheduled. - You have an appointment in April with Dr. Lynn. This is a follow-up with the provider managing your care. Please call our office if your symptoms worsen or if you have any questions about your care plan. Joselyn Reyes APRN.MAMMAL CONTROL AGENT Disposition: Return in about 2 months (around 01/21/2025) for joselyn. Follow-up and Disposition History for Encounter Date Provider Department Center 11/20/2024 [id number] REYES [facility] Encounter Status:Closed by JOSELYN REYES on 11/20/24 PROGRESS Observed: 11/20/2024 1:29 PM Status: COMPLETED Source: [facility] HNO ID: [id number] Author: JOSELYN REYES APRN.MAMMAL CONTROL AGENT Service: ? Author Type: Nurse Practitioner Type: Progress Notes Filed: 11/20/2024 14:25 Note Text: [facility] [place] [facility] Department of Cardiovascular Medicine SECTION OF CLINICAL CARDIOLOGY OUTPATIENT VISIT DATE November 20, 2024 OUTPATIENT VISIT TYPE ESTABLISHED PRIMARY CARE PHYSICIAN: To use this Smartlink, specify the provider ID whose address you want to display, e.g., .[email or web address][1 (where 1 is the provider ID). REFERRING PHYSICIAN: No referring provider defined for this encounter. CHIEF COMPLAINT: Follow up HISTORY OF PRESENT ILLNESS: Mr. Kamara is a 74 year old male with history of AFib, heart murmur, and aneurysm, who presents today for a cardiovascular medicine follow-up visit after I saw him October 20 just prior to his A-fib ablation procedure. That was done on November 07 at [facility]. The patient is a 74-year-old male with a history of atrial fibrillation, status post-ablation, presenting for follow-up. The patient reports persistent fatigue following his recent ablation procedure, which lasted approximately 6.5 hours. He experiences occasional sharp chest pains localized to the upper left side, which he describes as more intense than previous episodes. He also reports sensations of missed heartbeats. He is currently wearing a monitor car operator, which was applied on the and is scheduled to be worn for two weeks. He notes that his heart rate, as monitored by his watch, has ranged from 53 to 160 bpm, with frequent readings between 60 and 100 bpm. He reports a chronic cough persisting for 3-4 months, characterized by episodes lasting 30-40 minutes or longer. The cough is intermittent, with some days being cough-free and others dominated by continuous coughing. He has been treated with multiple medications, including antibiotics and four different cough suppressants, the latest of which is reportedly expensive. He has not yet consulted a apartment house manager. He also reports stomach pain, which he has been told may be related to gallbladder issues; an ultrasound has been scheduled. He reports significant sleep disturbances, often sleeping only 1.5 to 2.5 hours per night, though he occasionally achieves up to 7 hours. He attributes his persistent fatigue to this lack of sleep. He uses a CPAP machine consistently but does not maintain a regular sleep schedule. He has tried melatonin and a supplement called Relaxium without improvement. He takes magnesium nightly, which contains three different forms, including glycinate, and is unsure of the dosage. He also takes vitamin C 500 mg intermittently and vitamin D 2000 units daily, with occasional missed doses. He denies eating late at night. He uses albuterol as needed for coughing and another inhaler once daily. He takes metoprolol 12.5 mg once daily in the evening before bed. Subjective PAST MEDICAL HISTORY Diagnosis Date A-fib [...] Use Smoking status: Never Smokeless tobacco: Never Vaping Use Vaping status: Never Used Substance Use Topics Alcohol use: Not Currently Alcohol/week: 25.0 standard drinks of alcohol Types: 15 Standard drinks or equivalent, 10 Glasses of Wine (5oz) per week Drug use: No FAMILY HISTORY Problem Relation Age of Onset Diabetes Father Prostate Cancer Brother ALLERGIES: ALLERGIES Allergen Reactions Percocet [Oxycodone* Itching Pt took 2 doses close together (per patient) MEDICATIONS: fluticasone-vilanterol (BREO ELLIPTA) 100-25 mcg/dose inhaler Inhale 1 inhalation as instructed once daily. esomeprazole (NEXIUM) 40 mg capsule Take 40 mg by mouth daily before breakfast. famotidine (PEPCID) 40 mg tablet Take 40 mg by mouth at bedtime as needed (Gerd). dofetilide (TIKOSYN) 125 mcg capsule TAKE 1 CAPSULE BY MOUTH TWICE DAILY apixaban (ELIQUIS) 5 mg tab(s) Take 1 tablet by mouth two times a day. LORAZEPAM ORAL Take 0.5 mg by mouth as needed. metoprolol succinate ER (TOPROL XL) 25 mg 24 hr tablet Take 0.5 tablets by mouth once daily. losartan (COZAAR) 25 mg tablet Take 1 tablet by mouth once daily. thiamine (VITAMIN B1) 100 mg tablet 1 tablet by ORAL/FEEDING TUBE route once daily. loperamide (IMODIUM) 2 mg cap(s) Take 2 mg by mouth four times daily as needed for diarrhea. finasteride (PROSCAR) 5 mg tablet once daily. tamsulosin (FLOMAX) 0.4 mg ORAL Cp24 Take 1 capsule by mouth daily at bedtime. benzonatate (TESSALON PERLES) 100 mg capsule Take 2 capsules by mouth three times daily as needed for cough for up to 20 doses. (Patient not taking: Reported on 04/04/2024) Objective PHYSICAL EXAMINATION: Wt 116 kg (255 lb 11.7 oz) BMI 34.68 kg/m? General: Alert AND oriented, no acute distress. Skin: Normal. HEENT: Pupils equal, round. Oral cavity and oropharynx clear. Neck: Supple, no mass. Breast: Deferred. Respiratory: Wheezing noted on auscultation. Cardiovascular: Jugular venous pressure normal. Regular rate and rhythm, normal S1 and S2, no murmurs or added sounds. Abdomen: Soft, non-tender, non-distended, no masses palpable, no hepatosplenomegaly, normal bowel sounds. Genitourinary: Deferred. MSK: No joint swelling, erythema, or tenderness. Extremities: No clubbing, cyanosis, or edema. CARDIOVASCULAR MEDICINE TESTING: Electrocardiogram: sinus tachycardia, 133 bpm Last ECHO Result Conclusion ECHO Collected: 07/07/2024 2:44 PM (Final result) Impression: CONCLUSIONS: - Technically difficult exam due to body habitus. - Exam indication: Nonsustained atrial fibrillation - The left ventricle is normal in size. Left ventricular systolic function is normal. EF = 58 ? 5% (2D biplane) Normal left ventricular diastolic function. - The right ventricle is normal in size. Right ventricular systolic function is normal. - The visualized aorta is dilated with a maximal dimension of 4.7 cm. - There is mild 1+ MR. - Exam was compared with the prior echocardiographic exam performed on 04/11/2023. Prior ascending aorta measured 4.5cm. * * * Final * * * Last EKG Result Conclusion ECG COMPLETE Collected: 11/07/2024 2:18 PM (Preliminary result) Impression: SINUS BRADYCARDIA WITH PREMATURE SUPRAVENTRICULAR COMPLEXES LEFT ANTERIOR FASCICULAR BLOCK ABNORMAL ECG Last CT Result Conclusion CTA CHEST (GATED) W IVCON Exam End: 08/22/2024 1:19 PM (Final result) Impression: IMPRESSION: 1. Moderate dilation of the mid ascending aorta (4.7 cm, 17.0 cm2, 9.3 cm2/m) and mild ectasia/dilation of the aortic root (4.0 cm, 11.0 cm2). The remaining thoracic aorta is normal in course, caliber and has minimal atherosclerotic changes. No acute aortic pathology identified. 2. Normal pulmonary venous anatomy without pulmonary vein stenosis. 3. No left atrial or left atrial appendage thrombus. Mild biatrial dilation. 4. Small (<6 mm) non-calcified lung nodules. Incidental Finding: Follow-up Acuity: Incidental Finding: Solid: <6 mm (solitary or multiple) Routing Code: N/A Recommendation: No imaging follow-up is recommended Time Frame: N/A Comments: If there are risk factors for lung malignancy, a follow-up chest CT exam could be obtained in 12 months --END OF FINDING-- 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: ABEBE Transcribe Date/Time: Aug 22 2024 5:06P Dictated by : ZOILA VÁSQUEZ MD This examination was interpreted and the report reviewed and electronically signed by: ZOILA VÁSQUEZ MD on Aug 22 2024 5:51PM EST I have personally reviewed the Electrocardiogram. I personally interviewed, confirmed and edited the above information if obtained by others. Conclusion: 1. Chronic cough (R05.3) Persistent for 3-4 months, variable in intensity and frequency. Wheezing noted on auscultation. Patient has been on multiple medications without relief. Recent CT scan of the chest performed in August. Currently using albuterol inhaler as needed. - Continue using albuterol inhaler as needed. - Follow-up on results of the CT scan. - Consider referral to pulmonology if symptoms persist. 2. Obstructive sleep apnea (G47.33) Patient is compliant with CPAP therapy. Reports significant variability in sleep duration, ranging from 1.5 to 7 hours per night. Current sleep hygiene practices are inconsistent. - Educated patient on the importance of consistent sleep schedule and exposure to natural light in the morning and evening to regulate circadian rhythm. - Recommended continuation of magnesium supplementation, ensuring it does not contain magnesium oxide. - Consider referral to a sleep specialist for further evaluation and management. 3. Vitamin D deficiency (E55.9) Previous lab results from two years ago indicated suboptimal vitamin D levels. Patient is currently taking 2000 IU of vitamin D daily. - Continue current vitamin D supplementation of 2000 IU daily. - Recheck vitamin D levels to assess current status. 4. Paroxysmal atrial fibrillation (HCC) (I48.0) Recent ablation performed. Currently on metoprolol 12.5 mg daily. EKG shows sinus tachycardia with a heart rate of 133 bpm. Patient reports episodes of palpitations and irregular heartbeats. Wearing a monitor car operator for two weeks, with removal scheduled for tomorrow. - Increase metoprolol to 12.5 mg immediately, followed by 25 mg tonight and 25 mg tomorrow morning. - Monitor heart rate at home using available devices. - Patient to report heart rate to the office by 12:00 PM tomorrow. - Await results of the monitor car operator for further evaluation. - Follow-up appointment with Dr. Hwang in April. PLAN AND RECOMMENDATIONS: We discussed your recent ablation and current symptoms: - You mentioned feeling fatigued and experiencing a persistent cough for the past 3-4 months. You have tried multiple medications for the cough without significant improvement. - You reported occasional sharp chest pains and a sensation of missed heartbeats. I listened to your heart and noted a fast heart rate. An EKG confirmed sinus tachycardia (a fast but regular heart rhythm). - You are currently taking Metoprolol (Toprol XL) 12.5 mg once daily. I recommend adjusting your dosage as follows: - Take 12.5 mg (half a tablet) when you get home today. - Take 25 mg (a full tablet) tonight and another 25 mg tomorrow morning. - Monitor your heart rate at home using your watch or blood pressure device and call our office tomorrow around 12:00 PM to report your heart rate. - Continue wearing your heart monitor for the full two weeks, if possible, to ensure accurate results. If it falls off early, we will use the data collected so far. We discussed your sleep difficulties: - You reported inconsistent sleep patterns, sometimes sleeping as little as 1-2 hours per night. You are using a CPAP machine nightly, which is good. - To improve your sleep, I recommend: - Establishing a consistent bedtime and wake-up routine. - Getting outside for 10-15 minutes in the morning to expose your eyes to natural light, which helps regulate your circadian rhythm. - Avoiding eating right before bed. - Continuing to take magnesium at night, but ensure it does not contain magnesium oxide, as it is less effective. Aim for 400-500 mg of magnesium glycinate, citrate, or threonate. - Consider avoiding gtas-zcy-qvdbkrg sleep aids like Relaxium if they are not effective for you. We discussed your vitamin intake: - Continue taking Vitamin D 2,000 IU daily and [place]-3 supplements together for better absorption. Missing a day or two occasionally is fine, but try to stay consistent. - You may continue taking Vitamin C (500 mg) as you have been. We discussed your upcoming tests and appointments: - You mentioned an upcoming ultrasound to evaluate your gallbladder due to stomach pain. Please follow through with this test as scheduled. - You have an appointment in April with Dr. Hwang. This is a follow-up with the provider managing your care. Please call our office if your symptoms worsen or if you have any questions about your care plan. Joselyn Reyes APRN.[place] CONTACT INFORMATION: Joselyn Reyes APRN.[place] Cardiology Nurse Practitioner Section of Regional Cardiology [facility] Dept of Cardiovascular Medicine [facility] [place] [address] [place] [address] Office Office This note was partially generated using [employer] voice recognition system and may contain errors related to that system including grammar, punctuation, spelling, and words that may be inappropriate MIMI Observed: 11/11/2024 12:00 AM Status: COMPLETED Source: [facility] Telephone ([employer] ANYA KAMARA ([id number]) 1950 M [facility] Date Time Provider Department 11/11/24 ЕЛЕНА HWANG During your visit today, we recorded the following information about you: George Cortes 11/11/2024 2:29 PM Signed ----- Message from Елена Hwang MD sent at 11/07/2024 4:08 PM EDT ----- Please call patient and schedule him earlier appointment with first available nurse practitioner. He is s/p A-fib ablation procedure 11/07/2024 George Cortes 11/12/2024 12:46 PM Signed Called and Ambika Clark 11/13/2024 1:17 PM Signed Patient called back and I offered first available appointment, which was 12.24.2024 with Stefany Salas. He said no. He said he was told he needed to be seen within the next week or two. Please advise? George Cortes 11/17/2024 10:09 AM Signed Called and spoke to patient, scheduled appt Allergies As of Date: 11/11/2024 Noted Allergy Reaction PERCOCET (OXYCODONE-ACETAMINOPHEN)09/15/2016 9 - Itching Comments: Pt took 2 doses close together (per patient) Date Reviewed: 11/07/2024 Reviewed by: Roz Dotson, RN - Fully Assessed Prescriptions as of 11/17/2024 - dofetilide (TIKOSYN) 125 mcg capsule TAKE 1 CAPSULE BY MOUTH TWICE DAILY - apixaban (ELIQUIS) 5 mg tab(s) Take 1 tablet by mouth two times a day. - LORAZEPAM ORAL Take 0.5 mg by mouth as needed. - metoprolol succinate ER (TOPROL XL) 25 mg 24 hr tablet Take 0.5 tablets by mouth once daily. - losartan (COZAAR) 25 mg tablet Take 1 tablet by mouth once daily. - thiamine (VITAMIN B1) 100 mg tablet 1 tablet by ORAL/FEEDING TUBE route once daily. - benzonatate (TESSALON PERLES) 100 mg capsule Take 2 capsules by mouth three times daily as needed for cough for up to 20 doses. - loperamide (IMODIUM) 2 mg cap(s) Take 2 mg by mouth four times daily as needed for diarrhea. - finasteride (PROSCAR) 5 mg tablet once daily. - tamsulosin (FLOMAX) 0.4 mg ORAL Cp24 Take 1 capsule by mouth daily at bedtime. 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] 01/07/2022 Elevated LFTs [R79.89] 01/07/2022 Anemia [D64.9] 01/07/2022 Elevated serum creatinine [R79.89] 01/07/2022 Chest pain [R07.9] 01/08/2022 Supratherapeutic INR [R79.1] 01/09/2022 Steroid-induced hyperglycemia [R73.9, T38.0X5A] 01/09/2022 COPD (chronic obstructive pulmonary disease) (H*01/10/2022 Stage 3a chronic kidney disease (HCC) [N18.31] 01/11/2022 Subacute frontal sinusitis [J01.10] 01/13/2022 Atrial fibrillation (HCC) [I48.91] 02/08/2022 Mitral valve insufficiency [I34.0] 06/01/2022 Encounter for monitoring dofetilide therapy [Z5*06/01/2022 Ascending aorta dilatation (HCC) [I77.810] 06/18/2023 Encounter Status:Closed by GEORGE CORTES on 11/11/24 ANES POSTPROC EVAL Observed: 11/07/2024 3:32 PM Status: COMPLETED Source: [facility] HNO ID: [id number] Author: MADISYN LOZANO MD Service: ? Author Type: Anesthesiologist Type: Anesthesia Postprocedure Evaluation Filed: 11/07/2024 15:33 Note Text: POST ANESTHESIA EVALUATION NOTE : 1950 Procedure Summary Date: 11/07/24 Room / Location: [address] EP LAB Anesthesia Start: 1115 Anesthesia Stop: 1415 Procedure: COMPRE EP EVAL ABLTJ ATR FIB PULM VEIN ISOLATION (Bilateral: Groin) Diagnosis: Paroxysmal atrial fibrillation (HCC) (Paroxysmal atrial fibrillation (HCC) [I48.0]) Surgeons: Dio Anaya MD Responsible Provider: Madisyn Lozano MD Anesthesia Type: general ASA Status: 3 Anesthesia Type: general Airway Type: ETT Last Vitals Vitals Value Taken Time BP 139/76 11/07/24 1530 Temp 36 ?C (96.8 ?F) 11/07/24 1415 Pulse 58 11/07/24 1531 Resp 24 11/07/24 1430 SpO2 100 % 11/07/24 1531 Vitals shown include unfiled device data. Post Anesthesia Patient Status Patient Evaluation: PACU. PACU/ICU Patient Condition: stable. Anticipated Disposition: phase 2 then home. Neurological Status: aware and responsive. Pulmonary Status: breathing comfortably on room air Airway Control: returned to baseline unsupported. Cardiovascular Status: stable. Pain Management: clinically adequate Postoperative Hydration: acceptable. Intraoperative Events: no significant anesthesia events Post Operative Nausea/Vomiting Status: no significant post operative nausea or vomiting Recommendation: continue current plan of care and further care per PACU/ICU/floor team. Anesthesia Observations No Documentation SIGNATURE: Madisyn Lozano MD PATIENT NAME: Anya Kamara DATE: November 07, 2024 TIME: 3:32 PM CSN: [id number] Observed: 11/07/2024 2:18 PM Status: F Source: [facility] Ventricular Rate : 55 BPM Atrial Rate : 55 BPM P-R Interval : 202 ms QRS Duration : 120 ms Q-T Interval : 480 ms QTC Calculation(Bazett) : 459 ms Calculated P [place] : 87 degrees Calculated R [place] : -51 degrees Calculated T [place] : -12 degrees SINUS BRADYCARDIA WITH PREMATURE SUPRAVENTRICULAR COMPLEXES NONSPECIFIC INTRAVENTRICULAR CONDUCTION DELAY LEFT AXIS DEVIATION ABNORMAL ECG Confirmed by NEENA WOODSON MD (57) on 12/28/2024 9:22:46 AM NAME : ANYA KAMARA PID : [id number] : 1950 Gender : Male Race : ORD : Procedure Date : Nov 07 2024 14:18:50 Edit Date : Dec 28 2024 09:22:48 Diagnosis: SINUS BRADYCARDIA WITH PREMATURE SUPRAVENTRICULAR COMPLEXES NONSPECIFIC INTRAVENTRICULAR CONDUCTION DELAY LEFT AXIS DEVIATION ABNORMAL ECG Confirmed by NEENA WOODSON MD (57) on 12/28/2024 9:22:46 AM Test Reason : Location : [address] : [place] [address] Overread By : NEENA WOODSON MD Edited By : NEENA WOODSON MD Referred By : DIO ANAYA Acquired by : JFrancisco Javier, BRIEF OP NOT Observed: 11/07/2024 1:49 PM Status: COMPLETED Source: [facility] HNO ID: [id number] Author: DENNISE WALDRON MD Service: Electrophysiology Author Type: Fellow Type: Brief Op Note Filed: 11/07/2024 13:51 Note Text: [facility] ELECTROPHYSIOLOGY BRIEF PROCEDURE NOTE Anya Kamara [id number] 74yo M with obesity, sleep apnea, AAA, pAF (on dofetilide; apixaban; metop) here for AF ablation LVEF 58 (07/07/2024) EP Staff: Dio Anaya MD EP Fellow: Dennise Waldron MD Procedure: AF ablation Date: November 07, 2024 Outcome: Successful Pre-op diagnosis: pAF Post-op diagnosis: Same Access: - RFV x 1 (13.5Fr) closed with perclose and figure of eight suture - LFV x 2 (8Fr; 9Fr) closed with vascades Complications: None Plan: - 4 hours bedrest. - Please remove pressure dressings upon completion of bedrest. - Plan for same-day discharge. - Figure of eight sutures to be removed prior to discharge - apixaban 5 and full-dose [id number] to be given in recovery. Full report will follow in Epic: [Chart > Cardiac] For Questions/Orders 5PM - 8AM or Weekends (AFTER HOURS) please page: On-call Adult Neuropsychologist: [id number] JOON PROCEDURE NOTE Observed: 11/07/2024 12:34 PM Status: COMPLETED Source: [facility] HNO ID: [id number] Author: MADISYN LOZANO MD Service: ? Author Type: Anesthesiologist Type: Anesthesia Procedure Notes Filed: 11/07/2024 15:34 Note Text: ANESTHESIOLOGY PROCEDURE NOTE PIV General Information Procedure Start Time/Medication Administration: 11/07/2024 11:40 AM Procedure End Time: 11/07/2024 11:40 AM Patient Location: OR Staffing Anesthesiologist: Madisyn Lozano MD CAMP COUNSELOR: Rachel Myers APRN.CAMP COUNSELOR Performed by: CAMP COUNSELOR Preparation Sterility Preparation: hand hygiene performed prior to procedure, surgical cap used, mask used, skin prep agent completely dried prior to procedure Site Prep: chlorhexidine Procedure Details Indication: need for IV access Needle Size/Type: 16 gauge angiocath Orientation: Right Location: Hand Imaging Guidance Used: No SIGNATURE: Rachel Myers APRN.CAMP COUNSELOR PATIENT NAME: Anya Kamara DATE: November 07, 2024 TIME: 12:34 PM CSN: [id number] ANES PROCEDURE NOTE Observed: 11/07/2024 12:24 PM Status: COMPLETED Source: [facility] HNO ID: [id number] Author: MADISYN LOZANO MD Service: ? Author Type: Anesthesiologist Type: Anesthesia Procedure Notes Filed: 11/07/2024 15:34 Note Text: ANESTHESIOLOGY PROCEDURE NOTE Airway General Information Procedure Start Time/Medication Administration: 11/07/2024 11:35 AM Procedure End Time: 11/07/2024 11:40 AM Patient location during procedure: OR Timeout Performed Pre-procedure: timeout performed Consent Obtained: Yes Patient identity confirmed: arm band and patient Staffing Anesthesiologist: Madisyn Lozano MD CAMP COUNSELOR: Rachel Myers APRN.CAMP COUNSELOR Performed by: TOSHA Indications and Patient Condition Indications for airway management: anesthesia Preoxygenated: yes Patient position: sniffing Method: asleep Difficult Mask: No Final Airway Details Final airway type: endotracheal airway Final Endotracheal Airway: ETT Cuffed: yes Successful intubation technique: video laryngoscopy Devices used: Atkins Blade size: #4 ETT size (mm): 7.5 Measured from: lips Measurement (cm): 21 Cormack-Lehane Classification: grade I - full view of glottis Number of attempts at approach: 1 Airway not difficult SIGNATURE: Corbin Carmona APRN.CRNA PATIENT NAME: Anya Kamara DATE: November 07, 2024 TIME: 12:24 PM CSN: [id number] ANES PRE-OP Observed: 11/07/2024 11:00 AM Status: COMPLETED Source: [facility] HNO ID: [id number] Author: MADISYN LOZANO MD Service: ? Author Type: Anesthesiologist Type: Anesthesia Preprocedure Evaluation Filed: 11/07/2024 11:27 Note Text: ANESTHESIOLOGY DAY OF SURGERY NOTE : 1950 Procedure Information Anesthesia Start Date/Time: 11/07/24 1115 Procedure: COMPRE EP EVAL ABLTJ ATR FIB PULM VEIN ISOLATION Location: [address] LAB Surgeons: Dio Anaya MD Estimated body mass index is 34.45 kg/m? as calculated from the following: Height as of 05/05/24: 182.9 cm (6'). Weight as of this encounter: 115.2 kg (254 lb). Most recent hematocrit and potassium results: Hematocrit 40.6 10/31/2024 Potassium 4.2 11/07/2024 Relevant Problems ANESTHESIA (+) BRENDA on CPAP CARDIO (+) Ascending aorta dilatation (+) Atrial fibrillation (HCC) (+) Mitral valve insufficiency (+) Primary hypertension -RENAL (+) Stage 3a chronic kidney disease (HCC) PULMONARY (+) COPD (chronic obstructive pulmonary disease) (HCC) (+) COPD with acute exacerbation (HCC) (+) Dyspnea (+) BRENDA on CPAP I - PHYSICAL EVALUATION AIRWAY Patient intubated: No. Tracheostomy tube not present Mallampati: IV. TM distance: >3 FB. Neck ROM: full ROM without neurological symptoms. Mouth opening: adequate. Short neck: yes. Thick neck: yes [place] present: yes Lip Bite Test: II Microretrognathia/Micronagthia/Recessed Chin: Yes Additional exam findings: no II - ANESTHESIA PLAN ASA Score: 3 Anesthetic Plan: general Airway type: ETT NPO Status: adequate Beta Naomi Monitoring Plan Monitoring plan: standard ASA. Post Procedure Analgesic Plan Postoperative analgesic plan: multimodal analgesia. Informed Consent Anesthetic risks, benefits, alternatives, personnel and consent discussed: yes. Patient / Responsible Libertarian agrees to proceed: yes Patient / Surrogate agrees to blood products: blood products not planned Significant changes in the patient condition since the History and Physical, not otherwise documented in primary service progress note: no. Potential Anesthesia issues that may suggest increased risk of complications or contraindication to planned procedure: none. Discussed the possibility of lip / dental damage: yes Vitals Value Taken Time BP 141/69 11/07/24 0953 Pulse 55 11/07/24952 Resp Temp 36.7 ?C (98.1 ?F) 11/07/24952 SpO2 97 % 11/07/24952 No current facility-administered medications on file as of 11/07/2024. Outpatient Medications as of 11/07/2024 Medication Sig LORAZEPAM ORAL Take 0.5 mg by mouth as needed. metoprolol succinate ER (TOPROL XL) 25 mg 24 hr tablet Take 0.5 tablets by mouth once daily. benzonatate (TESSALON PERLES) 100 mg capsule Take 2 capsules by mouth three times daily as needed for cough for up to 20 doses. (Patient not taking: Reported on 04/04/2024) loperamide (IMODIUM) 2 mg cap(s) Take 2 mg by mouth four times daily as needed for diarrhea. finasteride (PROSCAR) 5 mg tablet once daily. tamsulosin (FLOMAX) 0.4 mg ORAL Cp24 Take 1 capsule by mouth daily at bedtime. I have interviewed and examined the patient. I have reviewed the medical record and/or the pre-anesthesia evaluation, pertinent labs, and test results. This contains updated information obtained within 48 hours of Surgery/Procedure. SIGNATURE: Madisyn Lozano MD PATIENT NAME: Anya Kamara DATE: November 07, 2024 TIME: 11:26 AM CSN: [id number] COMP METAB 2000 PNL SERPL Collected: 9:57 AM Status: F Source: [facility] Order Comment: Specimen Type : BLOOD SPECIMEN Ordering Facility: [facility] Address: [address] [place] [address] TYPE CODE TESTS RESULT OUT OF RANGE REFERENCE UNITS LAB 2885-2(LOINC) Prot SerPl-mCnc 6.5 6.3-8.0 g/dL LAB 1751-7(LOINC) Albumin SerPl-mCnc 3.9 3.9-4.9 g/dL LAB 84314-5(LOINC) Calcium SerPl-mCnc 9.4 8.5-10.2 mg/dL LAB 1975-2(LOINC) Bilirub SerPl-mCnc 0.7 0.2-1.3 mg/dL LAB 6768-6(LOINC) ALP SerPl-cCnc 253 High 38-113 U/L LAB 1920-8(LOINC) AST SerPl-cCnc 28 14-40 U/L LAB 1742-6(LOINC) ALT SerPl-cCnc 56 High 10-54 U/L LAB 2345-7(LOINC) Glucose SerPl-mCnc 137 High 74-99 mg/dL Result Comment: The [place] Diabetes Association (ADA) provides guidance for cutoff values for fasting glucose and random glucose. The ADA defines fasting as no caloric intake for at least 8 hours. Fasting plasma glucose results between 100 to 125 mg/dL indicate increased risk for diabetes (prediabetes). Fasting plasma glucose results greater than or equal to 126 mg/dL meet the criteria for diagnosis of diabetes. In the absence of unequivocal hyperglycemia, results should be confirmed by repeat testing. In a patient with classic symptoms of hyperglycemia or hyperglycemic crisis, random plasma glucose results greater than or equal to 200 mg/dL meet the criteria for diagnosis of diabetes. Reference: Standards of Medical Care in Diabetes 2016, [place] Diabetes Association. Diabetes Care. 2016.39(Suppl 1). LAB 3094-0(LOINC) BUN SerPl-mCnc 17 9-24 mg/ dL LAB 2160-0(LOINC) Creat SerPl-mCnc 1.12 0.73-1.22 mg/dL LAB 2951-2(LOINC) Sodium SerPl-sCnc 141 136-144 mmol/L LAB 2823-3(LOINC) Potassium SerPl-sCnc 4.2 3.7-5.1 mmol/L LAB 2075-0(LOINC) Chloride SerPl-sCnc 106 98-107 mmol/L LAB 2028-9(LOINC) CO2 SerPl-sCnc 24 22-30 mmo l/L LAB 96137-0(LOINC) Anion Gap SerPl-sCnc 11 8-15 mmol/L LAB 27403-8(LOINC) Creatinine + eGFR Pnl SerPlBld 69 >=60 mL/min/1 .73m??? Result Comment: Estimated Gl omerular Filtration Rate (eGFR) is calculated using the 2020 CKD-EPI creatinine equation. This equation utilizes serum creatinine, sex, and age as parameters. The creatinine assay has traceable calibration to isotope dilution-mass spectrometry. Refer to KDIGO guidelines for clinical interpretation. In patients with unstable renal function, e.g. those with acute kidney injury, the eGFR may not accurately reflect actual GFR. Performed By: #### 57454-3, 35494-6 #### [facility] CLIA [id number] [address] [place] [address] [place] NT-PROBNP SERPL-MCNC Collected: 11/07/2024 9:57 AM S tatus: F Source: [facility] Order Comment: Specimen Type : BLOOD SPECIMEN Ordering Facility: [facility] Address: [address] [place] [address] TYPE CODE TESTS RESULT OUT OF RANGE REFERENCE UNITS LAB 89597-7(LOINC) NT-proBNP SerPl-mCnc 658 High <450 pg/mL Performed By: #### 88770-8, 98479-9 #### [facility] CLIA [id number] [address] [place] [address] OF [place] PROCEDURE Observed: 11/07/2024 9:12 AM Status: COMPLETED Source: [facility] HNO ID: [id number] Author: DIO ANAYA MD Service: Cardiovascular Medicine Author Type: Physician Type: Procedures Filed: 12/19/2024 11:26 Note Text: Patient Name: Anya Kamara : 1950 Ordering Provider: DENNISE WALDRON Indication: I48.11 Longstanding persistent atrial fibrillation Type of Monitor: Extended Monitoring-Zio Patch Enrollment Dates: 11/16/2024-11/28/2024 IRHYTHM FINDINGS: Patient had a min HR of 46 bpm, max HR of 176 bpm, and avg HR of 103 bpm. Predominant underlying rhythm was Atrial Fibrillation. 36 Supraventricular Tachycardia runs occurred, the run with the fastest interval lasting 5 beats with a max rate of 176 bpm, the longest lasting 15.4 secs with an avg rate of 100 bpm. Atrial Fibrillation occurred (61% burden), ranging from 57-172 bpm (avg of 128 bpm), the longest lasting 3 days 21 hours with an avg rate of 124 bpm. 2 Pauses occurred, the longest lasting 3.1 secs (19 bpm). Atrial Fibrillation was detected within +/- 45 seconds of symptomatic patient event(s). Isolated SVEs were rare (<1.0%), SVE Couplets were rare (<1.0%), and SVE Triplets were rare (<1.0%). Isolated VEs were rare (<1.0%, 1453), VE Triplets were rare (<1.0%, 42), and no VE Couplets were present. MD notification criteria for Rapid Atrial Fibrillation met - report posted prior to leaving [facility] ([facility]). Zio monitor reviewed. Agree with reported findings as above. On my review: high burden of atypical AFL (confirmed on recent EKG) despite recent PVI for persistent AF. On low dose Tikosyn. Consider admission to attempt to up-titrate Tikosyn to 250 mcg BId. Tentatively hold a spot for a redo PVI / atypical AFL RFA. SVE = Supraventricular ectopy VE = Ventricular ectopy Dio Anaya MD PROGRESS Observed: 11/06/2024 11:39 AM Status: COMPLETED Source: [facility] ID: [id number] Author: JOSELYN ORLANDO RN Service: ? Author Type: Registered Nurse Type: Progress Notes Filed: 11/06/2024 11:42 Note Text: THE FOLLOWING WAS EVALUATED Motivation To Learn: Interested Family/Significant Other Support: Unable to assess - Family not present Cognitive Ability: Alert and oriented Patient Learns Best By: Individual Instruction The Following Influencing Factors Were Barriers To This Education Session: None The Following Physical Limitations Were Barriers To This Education Session: None Instruction Provided To: Patient Procedure: Pulmonary Vein Ablation/Isolation Pre-procedure information reviewed: Patient ID verified Procedure verified Physician verified Explanation of procedure Sedation level during procedure medication instructions from EP lab request: On Eliquis - hold AM dose Patient denies missing any doses of Eliquis in the last 3 weeks. Travel instructions/restrictions Scheduling information Possible same day discharge versus overnight hospital stay Check out time Family waiting area Physician contact with family after procedure Post Procedure Expectations reviewed: Inpatient hospital stay Post procedure antiarrhythmics and anticoagulation will be discussed with Physician, nurse practitioner or Physician assistant accounting manager upon discharge Instructions for transmitting EKG to Monitoring Center 3 month follow up instructions Contact number for information and questions Patient Evaluation: Verbalizes understanding Follow Up Plan: Follow up as directed by MD. Supplemental Material Given: Written Material Patient education regarding radiation exposure. Instructed By Joselyn Orlando RN, RN. In Department of CARDIOLOGY. CNCNPATED Observed: 11/06/2024 12:00 AM Status: COMPLETED Source: [facility] Education (EPSMN) ANYA KAMARA ([id number]) 1950 M [facility] Date Time Provider Department 11/06/24 DIO ANAYA EPSMN Reason for Visit: Patient Education [91] Cmt: PVI During your visit today, we recorded the following information about you: Allergies As of Date: 11/06/2024 Noted Allergy Reaction PERCOCET (OXYCODONE-ACETAMINOPHEN)09/15/2016 9 - Itching Comments: Pt took 2 doses close together (per patient) Date Reviewed: 08/22/2024 Reviewed by: Vanita De [place], TECHNOLOGIST - Fully Assessed Prescriptions as of 11/06/2024 - dofetilide (TIKOSYN) 125 mcg capsule TAKE 1 CAPSULE BY MOUTH TWICE DAILY - apixaban (ELIQUIS) 5 mg tab(s) Take 1 tablet by mouth two times a day. - LORAZEPAM ORAL Take 0.5 mg by mouth as needed. - metoprolol succinate ER (TOPROL XL) 25 mg 24 hr tablet Take 0.5 tablets by mouth once daily. - losartan (COZAAR) 25 mg tablet Take 1 tablet by mouth once daily. - thiamine (VITAMIN B1) 100 mg tablet 1 tablet by ORAL/FEEDING TUBE route once daily. - benzonatate (TESSALON PERLES) 100 mg capsule Take 2 capsules by mouth three times daily as needed for cough for up to 20 doses. - loperamide (IMODIUM) 2 mg cap(s) Take 2 mg by mouth four times daily as needed for diarrhea. - finasteride (PROSCAR) 5 mg tablet once daily. - tamsulosin (FLOMAX) 0.4 mg ORAL Cp24 Take 1 capsule by mouth daily at bedtime. Encounter Status:Closed by JOSELYN ORLANDO RN on 11/06/24 CONFIRM BLOOD TYPE Collected: 9:01 AM Status: F Source: [facility] Order Comment: Specimen Type : BLOOD SPECIMEN Ordering Facility: [facility] Address: [address] [place] [address] TYPE CODE TESTS RESULT OUT OF RANGE REFERENCE UNITS LAB [id number] ABO AB LAB [id number] RH Positive Performed By: #### CONABO ## ## CC MAIN BLOOD BANK [facility] [id number] [address] [place] [address] OF [facility] METAB 2000 PNL SERPL Collected: 8:58 AM Status: F Source: [facility] Order Comment: Specimen Type : BLOOD SPECIMEN Ordering Facility: [facility] Address: [address] [place] [address] TYPE CODE TESTS RESULT OUT OF RANGE REFERENCE UNITS LAB 2345-7(LOINC) Glucose SerPl-mCnc 161 High 74-99 mg/dL Result Comment: The [place] Diabetes Association (ADA) provides guidance for cutoff values for fasting glucose and random glucose. The ADA defines fasting as no caloric intake for at least 8 hours. Fasting plasma glucose results between 100 to 125 mg/dL indicate increased risk for diabetes (prediabetes). Fasting plasma glucose results greater than or equal to 126 mg/dL meet the criteria for diagnosis of diabetes. In the absence of unequivocal hyperglycemia, results should be confirmed by repeat testing. In a patient with classic symptoms of hyperglycemia or hyperglycemic crisis, random plasma glucose results greater than or equal to 200 mg/dL meet the criteria for diagnosis of diabetes. Reference: Standards of Medical Care in Diabetes 2016, [place] Diabetes Association. Diabetes Care. 2016.39(Suppl 1). LAB 3094-0(LOINC) BUN SerPl-mCnc 24 9-24 mg/ dL LAB 2160-0(LOINC) Creat SerPl-mCnc 1.22 0.73-1.22 mg/dL LAB 2951-2(LOINC) Sodium SerPl-sCnc 142 136-144 mmol/L LAB 2823-3(LOINC) Potassium SerPl-sCnc 4.9 3.7-5.1 mmol/L LAB 2075-0(LOINC) Chloride SerPl-sCnc 103 98-107 mmol/L LAB 2028-9(LOINC) CO2 SerPl-sCnc 29 22-30 mmo l/L LAB 78449-6(LOINC) Anion Gap SerPl-sCnc 10 8-15 mmol/L LAB 01907-1(LOINC) Calcium SerPl-mCnc 9.5 8.5-10.2 mg/dL LAB 69988-6(LOINC) Creatinine + eGFR Pnl SerPlBld 62 >=60 mL/min/1 .73m??? Result Comment: Estimated Gl omerular Filtration Rate (eGFR) is calculated using the 2020 CKD-EPI creatinine equation. This equation utilizes serum creatinine, sex, and age as parameters. The creatinine assay has traceable calibration to isotope dilution-mass spectrometry. Refer to KDIGO guidelines for clinical interpretation. In patients with unstable renal function, e.g. those with acute kidney injury, the eGFR may not accurately reflect actual GFR. Performed By: #### [id number] # ### [facility] CLIA [id number] [address] [place] [address] [place] CBC PNL BLD AUTO Collected: 5 8:58 AM Status: F Source: [facility] Order Comment: Specimen Type : BLOOD SPECIMEN Ordering Facility: [facility] Address: [address] [place] [address] TYPE CODE TESTS RESULT OUT OF RANGE REFERENCE UNITS LAB 6690-2(LOINC) WBC # Bld Auto 8.81 3.70-11.00 k/uL LAB 789-8(LOINC) RBC # Bld Auto 4.21 4.20-6.00 m/uL LAB 718-7(LOINC) Hgb Bld-mCnc 13.1 13.0-17.0 g/dL LAB 4544-3(LOINC) Hct VFr Bld Auto 40.6 39.0-51.0 % LAB 787-2([facility]) MCV RBC Auto 96.4 80.0-100.0 fL LAB 785-6([facility]) MCH RBC Qn Auto 31.1 26.0-34.0 pg LAB 786-4([facility]) MCHC RBC Auto-mCnc 32.3 30.5-36.0 g/dL LAB 49456-6([facility]) RDW RBC-Rto 13.8 11.5-15.0 % LAB 777-3([facility]) Platelet # Bld Auto 266 150-400 k/uL LAB 89565-0([facility]) PMV Bld Auto 9.4 9.0-12.7 fL LAB 771-6([facility]) nRBC # Bld Auto <0.01 <0.01 k/uL Performed By: #### 06537-1 # ### [facility] CLIA [id number] [address] [place] [address] OF [place] TYPE AND SCREEN,30 DAY Collected: 10/31/2024 8:58 AM Status: F Source: [facility] Order Comment: Specimen Type : BLOOD SPECIMEN Ordering Facility: [facility] Address: [address] [place] [address] TYPE CODE TESTS RESULT OUT OF RANGE REFERENCE UNITS LAB [id number] ABO AB LAB [id number] RH Positive LAB [id number] ANTIBODY SCREEN Negative Performed By: #### [id number] ## ## CC [facility] BLOOD BANK CLIA [id number] [address] [place] [address] OF [place] PROGRESS Observed: 10/20/2024 8:38 AM Status: COMPLETED Source: [facility] HNO ID: [id number] Author: JOSELYN REYES APRN.MAMMAL CONTROL AGENT Service: ? Author Type: Nurse Practitioner Type: Progress Notes Filed: 10/20/2024 09:09 Note Text: [facility] [place] [facility] Department of Cardiovascular Medicine SECTION OF CLINICAL CARDIOLOGY OUTPATIENT VISIT DATE October 20, 2024 OUTPATIENT VISIT TYPE ESTABLISHED PRIMARY CARE PHYSICIAN: Ezekiel Caro [address] [place] [address] REFERRING PHYSICIAN: No referring provider defined for this encounter. CHIEF COMPLAINT: Follow Up HISTORY OF PRESENT ILLNESS: The patient is a 74-year-old male with a history of AFib, heart murmur, and aneurysm, presenting for follow-up. The patient reports a persistent cough over the past three weeks, which has recently improved. He was treated with an antibiotic, allergy medication, Flonase, albuterol, and cough syrup, but these did not alleviate the cough. He experiences dyspnea, which he notes is not significantly worse than usual. He reports chest soreness attributed to coughing. He denies any chest pain or discomfort unrelated to coughing. He has a history of a heart murmur, which was recently noted by another clinician. He also has a known aneurysm, reportedly measuring 4.7 cm. He mentions that clinicians have indicated it may require intervention as it enlarges. He is scheduled for an ablation procedure to address his AFib. He has upcoming appointments for pre-procedure lab work and a telephone interview. He reports poor sleep quality despite using a CPAP machine for sleep apnea, stating that he often lies awake for several hours before falling asleep. He notes dental issues, including a broken tooth and a lost filling, but has not yet seen a dentist. He mentions a weight fluctuation of 2-4 pounds at home but has maintained a stable weight of 259 pounds over the past six months. He reports a gradual weight gain over the years since high school. He has a family history of AFib, with his brother having undergone an ablation procedure 2-3 years ago. Subjective PAST MEDICAL HISTORY Diagnosis Date A-fib [...] Use Smoking status: Never Smokeless tobacco: Never Vaping Use Vaping status: Never Used Substance Use Topics Alcohol use: Not Currently Alcohol/week: 25.0 standard drinks of alcohol Types: 15 Standard drinks or equivalent, 10 Glasses of Wine (5oz) per week Drug use: No FAMILY HISTORY Problem Relation Age of Onset Diabetes Father Prostate Cancer Brother ALLERGIES: ALLERGIES Allergen Reactions Percocet [Oxycodone* Itching Pt took 2 doses close together (per patient) MEDICATIONS: dofetilide (TIKOSYN) 125 mcg capsule TAKE 1 CAPSULE BY MOUTH TWICE DAILY apixaban (ELIQUIS) 5 mg tab(s) Take 1 tablet by mouth two times a day. LORAZEPAM ORAL Take 0.5 mg by mouth as needed. metoprolol succinate ER (TOPROL XL) 25 mg 24 hr tablet Take 0.5 tablets by mouth once daily. losartan (COZAAR) 25 mg tablet Take 1 tablet by mouth once daily. thiamine (VITAMIN B1) 100 mg tablet 1 tablet by ORAL/FEEDING TUBE route once daily. benzonatate (TESSALON PERLES) 100 mg capsule Take 2 capsules by mouth three times daily as needed for cough for up to 20 doses. (Patient not taking: Reported on 04/04/2024) loperamide (IMODIUM) 2 mg cap(s) Take 2 mg by mouth four times daily as needed for diarrhea. finasteride (PROSCAR) 5 mg tablet once daily. tamsulosin (FLOMAX) 0.4 mg ORAL Cp24 Take 1 capsule by mouth daily at bedtime. Objective PHYSICAL EXAMINATION: BP 122/78 (BP Site: Left Arm, BP Position: Sitting, BP Cuff Size: Large Adult) Pulse 63 Wt 117.5 kg (259 lb 0.7 oz) SpO2 98% BMI 35.13 kg/m? General: Alert AND oriented, no acute distress. Skin: Normal. HEENT: Pupils equal, round. Oral cavity with multiple dental issues noted, including a broken tooth and a large filling that has come out. Neck: Supple, no mass. Respiratory: Clear to auscultation bilaterally. Cardiovascular: irregular rhythm, 2/6 systolic murmur MSK: No joint swelling, erythema, or tenderness. Extremities: No clubbing, cyanosis, or edema. CARDIOVASCULAR MEDICINE TESTING: No Cardiovascular testing perfomed today. Last ECHO Result Conclusion ECHO Collected: 07/07/2024 2:44 PM (Final result) Impression: CONCLUSIONS: - Technically difficult exam due to body habitus. - Exam indication: Nonsustained atrial fibrillation - The left ventricle is normal in size. Left ventricular systolic function is normal. EF = 58 ? 5% (2D biplane) Normal left ventricular diastolic function. - The right ventricle is normal in size. Right ventricular systolic function is normal. - The visualized aorta is dilated with a maximal dimension of 4.7 cm. - There is mild 1+ MR. - Exam was compared with the prior echocardiographic exam performed on 04/11/2023. Prior ascending aorta measured 4.5cm. * * * Final * * * Last EKG Result Conclusion ECG COMPLETE Collected: 07/07/2024 2:08 PM (Final result) Impression: NORMAL SINUS RHYTHM LEFT AXIS DEVIATION ABNORMAL ECG Confirmed by MD DANUTA, QARAB ([id number]) on 07/09/2024 11:29:[address] Result Conclusion CTA CHEST (GATED) W IVCON Exam End: 08/22/2024 1:19 PM (Final result) Impression: IMPRESSION: 1. Moderate dilation of the mid ascending aorta (4.7 cm, 17.0 cm2, 9.3 cm2/m) and mild ectasia/dilation of the aortic root (4.0 cm, 11.0 cm2). The remaining thoracic aorta is normal in course, caliber and has minimal atherosclerotic changes. No acute aortic pathology identified. 2. Normal pulmonary venous anatomy without pulmonary vein stenosis. 3. No left atrial or left atrial appendage thrombus. Mild biatrial dilation. 4. Small (<6 mm) non-calcified lung nodules. Incidental Finding: Follow-up Acuity: Incidental Finding: Solid: <6 mm (solitary or multiple) Routing Code: N/A Recommendation: No imaging follow-up is recommended Time Frame: N/A Comments: If there are risk factors for lung malignancy, a follow-up chest CT exam could be obtained in 12 months --END OF FINDING-- 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: ABEBE Transcribe Date/Time: Aug 22 2024 5:06P Dictated by : ZOILA VÁSQUEZ MD This examination was interpreted and the report reviewed and electronically signed by: ZOILA VÁSQUEZ MD on Aug 22 2024 5:51PM EST There were no tests performed for review. I personally interviewed, confirmed and edited the above information if obtained by others. Conclusion: 1. Cough, unspecified type (R05.9) Shortness of breath (R06.02) Cough has persisted for three weeks; shortness of breath is chronic. Previous treatments included antibiotics, allergy medication, Metamucil, Flonase, Albuterol, and cough syrup, with no significant improvement. Chest discomfort noted, likely secondary to coughing. - Monitor symptoms; no new medications or treatments initiated at this time. 2. Atrial fibrillation, unspecified type (HCC) (I48.91) Scheduled for an ablation procedure; pre-procedure lab work and interview are planned. - Complete lab work on the at 9:00 AM in [place]. - Conduct pre-procedure interview on the . - No changes to current medication regimen. 3. Obstructive sleep apnea (G47.33) Managed with CPAP therapy; patient reports difficulty initiating sleep. - Continue CPAP therapy. 4. Abdominal aortic aneurysm (AAA) without rupture, unspecified part (I71.40) Stable at 4.7 cm; monitoring for progression. - Continue regular monitoring; no intervention required until aneurysm reaches 5.5 to 6 cm. PLAN AND RECOMMENDATIONS: We discussed your recent cough and shortness of breath: - You mentioned coughing for the past three weeks, which has improved over the last two days. No changes to your current medications or treatment plan were made today. - Continue monitoring your symptoms. If your cough worsens or you experience increased shortness of breath, please contact our office. We discussed your atrial fibrillation and upcoming ablation procedure: - You are scheduled for blood work on the at 9:00 AM in [place]. Please ensure you attend this appointment. - You have a telephone interview on the to discuss the ablation procedure. During this interview, they will provide further details and determine the next steps. - The ablation procedure is intended to address your atrial fibrillation by targeting specific areas of your heart. You will receive additional instructions closer to the procedure date. We discussed your heart murmur and aneurysm: - Your heart murmur was noted during today?s exam. No changes to your care plan are needed at this time. - Your aneurysm remains stable at 4.7 cm. We will continue monitoring it, as intervention is typically considered when it reaches 5.5 to 6 cm. We discussed your weight and blood pressure: - Your weight is stable at 259 lbs, and your blood pressure is within an acceptable range. No changes to your medications or care plan are needed at this time. - For accurate weight tracking, I recommend weighing yourself in the morning after using the restroom. We discussed your sleep concerns: - You reported difficulty sleeping despite using a CPAP machine. No changes were made to your current treatment plan. If your sleep issues persist or worsen, please let us know. Follow-up: - We will schedule your next appointment in 6 months to monitor your progress. If you need to be seen sooner or have any concerns, please contact our office. CONTACT INFORMATION: Joselyn Reyes APRN.CNP Cardiology Nurse Practitioner Section of Regional Cardiology [facility] Dept of Cardiovascular Medicine [facility] [place] [address] [place] [address] Office Office This note was partially generated using [employer] voice recognition system and may contain errors related to that system including grammar, punctuation, spelling, and words that may be inappropriate CNOV Observed: 10/20/2024 8:30 AM Status: COMPLETED Source: [facility] Office Visit (JENNIFER) ANYA KAMARA ([id number]) 1950 [address] Date Time Provider Department 10/20/24 8:30 AM JOSELYN REYES During your visit today, we recorded the following information about you: Pulse Blood pressure Weight 63/minute 122/78 117.5 kg Joselyn Reyes APRN.CNP 10/20/2024 9:09 AM [facility] [place] [facility] Department of Cardiovascular Medicine SECTION OF CLINICAL CARDIOLOGY OUTPATIENT VISIT DATE October 20, 2024 OUTPATIENT VISIT TYPE ESTABLISHED PRIMARY CARE PHYSICIAN: Ezekiel Caro [address] [place] [address] REFERRING PHYSICIAN: No referring provider defined for this encounter. CHIEF COMPLAINT: Follow Up HISTORY OF PRESENT ILLNESS: The patient is a 74-year-old male with a history of AFib, heart murmur, and aneurysm, presenting for follow-up. The patient reports a persistent cough over the past three weeks, which has recently improved. He was treated with an antibiotic, allergy medication, Flonase, albuterol, and cough syrup, but these did not alleviate the cough. He experiences dyspnea, which he notes is not significantly worse than usual. He reports chest soreness attributed to coughing. He denies any chest pain or discomfort unrelated to coughing. He has a history of a heart murmur, which was recently noted by another clinician. He also has a known aneurysm, reportedly measuring 4.7 cm. He mentions that clinicians have indicated it may require intervention as it enlarges. He is scheduled for an ablation procedure to address his AFib. He has upcoming appointments for pre-procedure lab work and a telephone interview. He reports poor sleep quality despite using a CPAP machine for sleep apnea, stating that he often lies awake for several hours before falling asleep. He notes dental issues, including a broken tooth and a lost filling, but has not yet seen a dentist. He mentions a weight fluctuation of 2-4 pounds at home but has maintained a stable weight of 259 pounds over the past six months. He reports a gradual weight gain over the years since high school. He has a family history of AFib, with his brother having undergone an ablation procedure 2-3 years ago. Subjective PAST MEDICAL HISTORY Diagnosis Date A-fib [...] Use Smoking status: Never Smokeless tobacco: Never Vaping Use Vaping status: Never Used Substance Use Topics Alcohol use: Not Currently Alcohol/week: 25.0 standard drinks of alcohol Types: 15 Standard drinks or equivalent, 10 Glasses of Wine (5oz) per week Drug use: No FAMILY HISTORY Problem Relation Age of Onset Diabetes Father Prostate Cancer Brother ALLERGIES: ALLERGIES Allergen Reactions Percocet [Oxycodone* Itching Pt took 2 doses close together (per patient) MEDICATIONS: dofetilide (TIKOSYN) 125 mcg capsule TAKE 1 CAPSULE BY MOUTH TWICE DAILY apixaban (ELIQUIS) 5 mg tab(s) Take 1 tablet by mouth two times a day. LORAZEPAM ORAL Take 0.5 mg by mouth as needed. metoprolol succinate ER (TOPROL XL) 25 mg 24 hr tablet Take 0.5 tablets by mouth once daily. losartan (COZAAR) 25 mg tablet Take 1 tablet by mouth once daily. thiamine (VITAMIN B1) 100 mg tablet 1 tablet by ORAL/FEEDING TUBE route once daily. benzonatate (TESSALON PERLES) 100 mg capsule Take 2 capsules by mouth three times daily as needed for cough for up to 20 doses. (Patient not taking: Reported on 04/04/2024) loperamide (IMODIUM) 2 mg cap(s) Take 2 mg by mouth four times daily as needed for diarrhea. finasteride (PROSCAR) 5 mg tablet once daily. tamsulosin (FLOMAX) 0.4 mg ORAL Cp24 Take 1 capsule by mouth daily at bedtime. Objective PHYSICAL EXAMINATION: BP 122/78 (BP Site: Left Arm, BP Position: Sitting, BP Cuff Size: Large Adult) Pulse 63 Wt 117.5 kg (259 lb 0.7 oz) SpO2 98% BMI 35.13 kg/m? General: Alert AND oriented, no acute distress. Skin: Normal. HEENT: Pupils equal, round. Oral cavity with multiple dental issues noted, including a broken tooth and a large filling that has come out. Neck: Supple, no mass. Respiratory: Clear to auscultation bilaterally. Cardiovascular: irregular rhythm, 2/6 systolic murmur MSK: No joint swelling, erythema, or tenderness. Extremities: No clubbing, cyanosis, or edema. CARDIOVASCULAR MEDICINE TESTING: No Cardiovascular testing perfomed today. Last ECHO Result Conclusion ECHO Collected: 07/07/2024 2:44 PM (Final result) Impression: CONCLUSIONS: - Technically difficult exam due to body habitus. - Exam indication: Nonsustained atrial fibrillation - The left ventricle is normal in size. Left ventricular systolic function is normal. EF = 58 ? 5% (2D biplane) Normal left ventricular diastolic function. - The right ventricle is normal in size. Right ventricular systolic function is normal. - The visualized aorta is dilated with a maximal dimension of 4.7 cm. - There is mild 1+ MR. - Exam was compared with the prior echocardiographic exam performed on 04/11/2023. Prior ascending aorta measured 4.5cm. * * * Final * * * Last EKG Result Conclusion ECG COMPLETE Collected: 07/07/2024 2:08 PM (Final result) Impression: NORMAL SINUS RHYTHM LEFT AXIS DEVIATION ABNORMAL ECG Confirmed by MD DANUTA, QARAB ([id number]) on 07/09/2024 11:29:[address] Result Conclusion CTA CHEST (GATED) W IVCON Exam End: 08/22/2024 1:19 PM (Final result) Impression: IMPRESSION: 1. Moderate dilation of the mid ascending aorta (4.7 cm, 17.0 cm2, 9.3 cm2/m) and mild ectasia/dilation of the aortic root (4.0 cm, 11.0 cm2). The remaining thoracic aorta is normal in course, caliber and has minimal atherosclerotic changes. No acute aortic pathology identified. 2. Normal pulmonary venous anatomy without pulmonary vein stenosis. 3. No left atrial or left atrial appendage thrombus. Mild biatrial dilation. 4. Small (<6 mm) non-calcified lung nodules. Incidental Finding: Follow-up Acuity: Incidental Finding: Solid: <6 mm (solitary or multiple) Routing Code: N/A Recommendation: No imaging follow-up is recommended Time Frame: N/A Comments: If there are risk factors for lung malignancy, a follow-up chest CT exam could be obtained in 12 months --END OF FINDING-- 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: ABEBE Transcribe Date/Time: Aug 22 2024 5:06P Dictated by : ZOILA VÁSQUEZ MD This examination was interpreted and the report reviewed and electronically signed by: ZOILA VÁSQUEZ MD on Aug 22 2024 5:51PM EST There were no tests performed for review. I personally interviewed, confirmed and edited the above information if obtained by others. Conclusion: 1. Cough, unspecified type (R05.9) Shortness of breath (R06.02) Cough has persisted for three weeks; shortness of breath is chronic. Previous treatments included antibiotics, allergy medication, Metamucil, Flonase, Albuterol, and cough syrup, with no significant improvement. Chest discomfort noted, likely secondary to coughing. - Monitor symptoms; no new medications or treatments initiated at this time. 2. Atrial fibrillation, unspecified type (HCC) (I48.91) Scheduled for an ablation procedure; pre-procedure lab work and interview are planned. - Complete lab work on the at 9:00 AM in [place]. - Conduct pre-procedure interview on the . - No changes to current medication regimen. 3. Obstructive sleep apnea (G47.33) Managed with CPAP therapy; patient reports difficulty initiating sleep. - Continue CPAP therapy. 4. Abdominal aortic aneurysm (AAA) without rupture, unspecified part (I71.40) Stable at 4.7 cm; monitoring for progression. - Continue regular monitoring; no intervention required until aneurysm reaches 5.5 to 6 cm. PLAN AND RECOMMENDATIONS: We discussed your recent cough and shortness of breath: - You mentioned coughing for the past three weeks, which has improved over the last two days. No changes to your current medications or treatment plan were made today. - Continue monitoring your symptoms. If your cough worsens or you experience increased shortness of breath, please contact our office. We discussed your atrial fibrillation and upcoming ablation procedure: - You are scheduled for blood work on the at 9:00 AM in [place]. Please ensure you attend this appointment. - You have a telephone interview on the to discuss the ablation procedure. During this interview, they will provide further details and determine the next steps. - The ablation procedure is intended to address your atrial fibrillation by targeting specific areas of your heart. You will receive additional instructions closer to the procedure date. We discussed your heart murmur and aneurysm: - Your heart murmur was noted during today?s exam. No changes to your care plan are needed at this time. - Your aneurysm remains stable at 4.7 cm. We will continue monitoring it, as intervention is typically considered when it reaches 5.5 to 6 cm. We discussed your weight and blood pressure: - Your weight is stable at 259 lbs, and your blood pressure is within an acceptable range. No changes to your medications or care plan are needed at this time. - For accurate weight tracking, I recommend weighing yourself in the morning after using the restroom. We discussed your sleep concerns: - You reported difficulty sleeping despite using a CPAP machine. No changes were made to your current treatment plan. If your sleep issues persist or worsen, please let us know. Follow-up: - We will schedule your next appointment in 6 months to monitor your progress. If you need to be seen sooner or have any concerns, please contact our office. CONTACT INFORMATION: Joselyn Reyes APRN.CNP Cardiology Nurse Practitioner Section of Regional Cardiology [facility] Dept of Cardiovascular Medicine [facility] [place] [address] Office Office This note was partially generated using [employer] recognition system and may contain errors related to that system including grammar, punctuation, spelling, and words that may be inappropriate Joselyn Reyes APRN.CNP 10/20/2024 8:53 AM Signed We discussed your recent cough and shortness of breath: - You mentioned coughing for the past three weeks, which has improved over the last two days. No changes to your current medications or treatment plan were made today. - Continue monitoring your symptoms. If your cough worsens or you experience increased shortness of breath, please contact our office. We discussed your atrial fibrillation and upcoming ablation procedure: - You are scheduled for blood work on the at 9:00 AM in [place]. Please ensure you attend this appointment. - You have a telephone interview on the to discuss the ablation procedure. During this interview, they will provide further details and determine the next steps. - The ablation procedure is intended to address your atrial fibrillation by targeting specific areas of your heart. You will receive additional instructions closer to the procedure date. We discussed your heart murmur and aneurysm: - Your heart murmur was noted during today?s exam. No changes to your care plan are needed at this time. - Your aneurysm remains stable at 4.7 cm. We will continue monitoring it, as intervention is typically considered when it reaches 5.5 to 6 cm. We discussed your weight and blood pressure: - Your weight is stable at 259 lbs, and your blood pressure is within an acceptable range. No changes to your medications or care plan are needed at this time. - For accurate weight tracking, I recommend weighing yourself in the morning after using the restroom. We discussed your sleep concerns: - You reported difficulty sleeping despite using a CPAP machine. No changes were made to your current treatment plan. If your sleep issues persist or worsen, please let us know. Follow-up: - We will schedule your next appointment in 6 months to monitor your progress. If you need to be seen sooner or have any concerns, please contact our office. Joselyn Reyes APRN.MAMMAL CONTROL AGENT Allergies As of Date: 10/20/2024 Noted Allergy Reaction PERCOCET (OXYCODONE-ACETAMINOPHEN)09/15/2016 9 - Itching Comments: Pt took 2 doses close together (per patient) Date Reviewed: 08/22/2024 Reviewed by: Vanita De La Cruz, TECHNOLOGIST - Fully Assessed Reason for Visit: Follow Up [171] Visit Diagnoses:Cough, unspecified type [R05.9] Shortness of breath [R06.02] Atrial fibrillation, unspecified type (HCC) [I48.91] Obstructive sleep apnea [G47.33] Abdominal aortic aneurysm (AAA) without rupture, unspecified part [I71.40] Prescriptions as of 10/20/2024 - dofetilide (TIKOSYN) 125 mcg capsule TAKE 1 CAPSULE BY MOUTH TWICE DAILY - apixaban (ELIQUIS) 5 mg tab(s) Take 1 tablet by mouth two times a day. - LORAZEPAM ORAL Take 0.5 mg by mouth as needed. - metoprolol succinate ER (TOPROL XL) 25 mg 24 hr tablet Take 0.5 tablets by mouth once daily. - losartan (COZAAR) 25 mg tablet Take 1 tablet by mouth once daily. - thiamine (VITAMIN B1) 100 mg tablet 1 tablet by ORAL/FEEDING TUBE route once daily. - benzonatate (TESSALON PERLES) 100 mg capsule Take 2 capsules by mouth three times daily as needed for cough for up to 20 doses. - loperamide (IMODIUM) 2 mg cap(s) Take 2 mg by mouth four times daily as needed for diarrhea. - finasteride (PROSCAR) 5 mg tablet once daily. - tamsulosin (FLOMAX) 0.4 mg ORAL Cp24 Take 1 capsule by mouth daily at bedtime. 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] 09/15/2016 Bilateral hearing loss [H91.93] 09/15/2016 Chronic headaches [R51.9, G89.29] 09/18/2016 09/18/2016 COPD with acute exacerbation (HCC) [J44.1] 01/07/2022 BRENDA on CPAP [G47.33] 01/07/2022 Obesity (BMI 35.0-39.9 without comorbidity) [E6*01/07/2022 shelter current use of anticoagulant [Z79.01] 01/07/2022 Elevated LFTs [R79.89] 01/07/2022 Anemia [D64.9] 01/07/2022 Elevated serum creatinine [R79.89] 01/07/2022 Chest pain [R07.9] 01/08/2022 Supratherapeutic INR [R79.1] 01/09/2022 Steroid-induced hyperglycemia [R73.9, T38.0X5A] 01/09/2022 COPD (chronic obstructive pulmonary disease) (H*01/10/2022 Stage 3a chronic kidney disease (HCC) [N18.31] 01/11/2022 Subacute frontal sinusitis [J01.10] 01/13/2022 Atrial fibrillation (HCC) [I48.91] 02/08/2022 Mitral valve insufficiency [I34.0] 06/01/2022 Encounter for monitoring dofetilide therapy [Z5*06/01/2022 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 No changes to your current medications or treatment plan were made today. - Continue monitoring your symptoms. If your cough worsens or you experience increased shortness of breath, please contact our office. We discussed your atrial fibrillation and upcoming ablation procedure: - You are scheduled for blood work on the at 9:00 AM in [place]. Please ensure you attend this appointment. - You have a telephone interview on the to discuss the ablation procedure. During this interview, they will provide further details and determine the next steps. - The ablation procedure is intended to address your atrial fibrillation by targeting specific areas of your heart. You will receive additional instructions closer to the procedure date. We discussed your heart murmur and aneurysm: - Your heart murmur was noted during today?s exam. No changes to your care plan are needed at this time. - Your aneurysm remains stable at 4.7 cm. We will continue monitoring it, as intervention is typically considered when it reaches 5.5 to 6 cm. We discussed your weight and blood pressure: - Your weight is stable at 259 lbs, and your blood pressure is within an acceptable range. No changes to your medications or care plan are needed at this time. - For accurate weight tracking, I recommend weighing yourself in the morning after using the restroom. We discussed your sleep concerns: - You reported difficulty sleeping despite using a CPAP machine. No changes were made to your current treatment plan. If your sleep issues persist or worsen, please let us know. Follow-up: - We will schedule your next appointment in 6 months to monitor your progress. If you need to be seen sooner or have any concerns, please contact our office. Joselyn Reyes APRN.MAMMAL CONTROL AGENT Disposition: Return in about 6 months (around 04/21/2025) for Dr Tipton . Follow-up and Disposition History for Encounter Date Provider Department Center 10/20/2024 [id number] REYES Critical access hospital Encounter Status:Closed by JOSELYN REYES on 10/20/24 GUNNARBR Collected: 10/17/2024 1:31 PM Status: F Source: [facility] [place] TYPE CODE TESTS RESULT OUT OF RANGE REFERENCE UNITS LAB CRU(LOINC) U Creatinine 164.0 40.0-278.0 mg/dL LAB MRUR(LOINC) U Microalb 5.6 mg/L LAB RMAL(LOINC) U Ratio Alb/Cre 3 0-30 mg/G Performed By: #### DIMAS ### # Heike Fortuna [address] [place], [place] [address] CBC Collected: 1:13 PM Status: F Source: [facility] [place] TYPE CODE TESTS RESULT OUT OF RANGE REFERENCE UNITS LAB WBC(LOINC) WBC 5.4 4.5-10.8 10 3/mcL LAB RBCCT(LOINC) RBC 4.04 Low 4.50-6.00 10 6/mcL LAB HGB(LOINC) Hgb 12.5 Low 13.0-17.5 G/dL LAB HCT(LOINC) Hct 37.5 Low 40.0-52.0 % LAB MCV(LOINC) MCV 92.9 81.0-100.0 fL LAB MCH(LOINC) MCH 30.9 27.0-33.0 pg LAB MCHC(LOINC) MCHC 33.3 32.0-36.0 G/dL LAB RDW(LOINC) RDW 13.8 11.5-15.5 % LAB PLT(LOINC) Platelet 263 150-450 10 3/mcL LAB MPV(LOINC) MPV 7.5 6.4-10.5 fL Performed By: #### [id number], L IPID, A1C, CBC, PBNP, VIDH, ANEU, GFR, PSA, TSHR, CMP, ADIFF #### [address] [address] .AUTO DIFF Collected: 10/17/2024 1:13 PM Status: F Source: [facility] [place] TYPE CODE TESTS RESULT OUT OF RANGE REFERENCE UNITS LAB BOLIVAR(LOINC) Neutrophil % 69.7 50.0-75.0 % LAB LYM(LOINC) Lymphocyte % 17.0 Low 20.0-40.0 % LAB MON(LOINC) Monocyte % 10.9 2.0-13.0 % LAB EO(LOINC) Eosinophil % 1.7 0.0-6.0 % LAB BAS(LOINC) Basophil % 0.7 0.0-2.5 % LAB ABLYM(LOINC) Lymphocyte, Absolute 0.9 0.9-4.3 10 3/mcL LAB JUSTUS(LOINC) Monocyte, Absolute 0.6 0.1-1.4 10 3/mcL LAB AEOS(LOINC) Eosinophil, Absolute 0.1 0.0-0.7 10 3/mcL LAB ABAS(LOINC) Basophil, Absolute 0.0 0.0-0.3 10 3/mcL Performed By: #### [id number], L IPID, A1C, CBC, PBNP, VIDH, ANEU, GFR, PSA, TSHR, CMP, ADIFF #### [facility] [address], [place] [address] .NEUABS Collected: 1:13 PM Status: F Source: [facility] [place] TYPE CODE TESTS RESULT OUT OF RANGE REFERENCE UNITS LAB ANEU(LOINC) Neutrophil, Absolute 3.8 2.3-8.1 10 3/mcL Performed By: #### [id number], L IPID, A1C, CBC, PBNP, VIDH, ANEU, GFR, PSA, TSHR, CMP, ADIFF #### [place] [address] [place], [place] [address] CMP Collected: 10/17/2024 1:13 PM Status: F Source: [facility] [place] TYPE CODE TESTS RESULT OUT OF RANGE REFERENCE UNITS LAB GLU(LOINC) Glucose Level 162 High 83-110 mg/dL LAB NA(LOINC) Sodium Level 141 136-145 mmol/L LAB K(LOINC) Potassium Level 4.0 3.5-5.1 mmol/L LAB CL(LOINC) Chloride 105 98-107 mmol/L LAB CO2(LOINC) CO2 29 23-31 mmol/L LAB EBAL(LOINC) Electrolyte Balance 7.0 4.0-15.0 mEq/L LAB BUN(LOINC) BUN 12 7-18 mg/dL LAB CRE(LOINC) Creatinine Lvl (s) 1.09 0.67-1.17 mg/dL LAB BC(LOINC) BUN/Creatinine Ratio 11 7-27 ratio LAB CA(LOINC) Calcium Lvl 9.0 8.4-10.2 mg/dL LAB PROT(LOINC) Total Protein 7.0 6.4-8.2 G/dL LAB ALB(LOINC) Albumin Level 3.1 Low 3.4-4.8 G/dL LAB GLB(LOINC) Globulin 3.9 2.7-4.4 G/dL LAB AG(LOINC) A/G Ratio 0.8 Low 1.1-2.5 ratio LAB BILT(LOINC) Bili Total 0.4 0.2-1.0 mg/dL Result Comment: Use of this assay is not recommended for patients undergoing treatment with eltrombopag due to the potential for falsely elevated results. LAB AP(LOINC) Alk Phos 247 High 40-135 U/L LAB AST(LOINC) AST/SGOT 40 10-40 U/L LAB ALT(LOINC) ALT/SGPT 70 High 16-63 U/L Performed By: #### [id number], L IPID, A1C, CBC, PBNP, VIDH, ANEU, GFR, PSA, TSHR, CMP, ADIFF #### [address] [address] PBNP Collected: 10/17/2024 1:13 PM Status: F Source: [facility] [place] TYPE CODE TESTS RESULT OUT OF RANGE REFERENCE UNITS LAB PBNP(LOINC) N-Terminal proBNP 814 High 0-450 pg/mL Result Comment: NT-proBNP re sults of less than 300 pg/mL effectively rules out acute congestive heart failure with 99% negative predictive value. Performed By: #### [id number], L IPID, A1C, CBC, PBNP, VIDH, ANEU, GFR, PSA, TSHR, CMP, ADIFF #### [address] [address] TSHR Collected: 1:13 PM Status: F Source: [facility] [place] TYPE CODE TESTS RESULT OUT OF RANGE REFERENCE UNITS LAB TSH(LOINC) TSH 0.98 0.36-3.74 mcIU/mL Performed By: #### [id number], L IPID, A1C, CBC, PBNP, VIDH, ANEU, GFR, PSA, TSHR, CMP, ADIFF #### [address] [address] .GFR Collected: 10/17/2024 1:13 PM Status: F Source: [facility] [place] TYPE CODE TESTS RESULT OUT OF RANGE REFERENCE UNITS LAB eGFR(LOINC) Estimated Glomerular Filtration Rate 71 ml/min/1. 73sqm Result Comment: Stages of Chronic Kidney Disease (CKD) Stage Description eGFR(ml/min/1.73 sq.m.) CKD 1 Normal kidney function or >=90 normal kindney function with possible kidney damage (ex. Proteinuria) CKD 2 Kidney damage with mild loss 60-89 of kidney function CKD 3a Mild to moderate loss of kidney 45-59 function CKD 3b Moderate to severe loss of 30-44 of kindey function CKD 4 Severe loss of kidney function 15-29 CKD 5 Kidney failure <15 Note: (go live 2024) the eGFR calculation was updated to the 2020 CKD-EPI creatinine equation without a race factor to calculate the eGFR results. Performed By: #### [id number], L IPID, A1C, CBC, PBNP, VIDH, ANEU, GFR, PSA, TSHR, CMP, ADIFF #### [place] [address] [place], [place] [address] LIPID Collected: 10/17/2024 1:13 PM Status: F Source: [facility] [place] TYPE CODE TESTS RESULT OUT OF RANGE REFERENCE UNITS LAB CHOL(LOINC) Cholesterol 168 0-200 mg/dL Result Comment: Cholesterol Reference Interval: Less than 200 Desirable 200-239 Borderline high risk 240 and above High risk LAB TRIG(LOINC) Triglycerides 104 0-150 mg/dL Result Comment: Triglyceride Reference Interval: Less than 150 Normal 150-199 Borderline high risk 200-499 High risk 500 or higher Very high risk LAB HD(LOINC) HDL Cholesterol 52 40-60 mg/dL LAB LDL(LOINC) LDL Cholesterol 95 0-130 mg/dL Performed By: #### [id number], L IPID, A1C, CBC, PBNP, VIDH, ANEU, GFR, PSA, TSHR, CMP, ADIFF #### [place] [address] [place], [place] [address] PSA Collected: 10/17/2024 1:13 PM Status: F Source: [facility] [place] TYPE CODE TESTS RESULT OUT OF RANGE REFERENCE UNITS LAB PSA(LOINC) Prostate Specific Antigen 11.18 High 0.00-4.00 ng/mL Performed By: #### [id number], L IPID, A1C, CBC, PBNP, VIDH, ANEU, GFR, PSA, TSHR, CMP, ADIFF #### [address] [address] VIDH Collected: 1:13 PM Status: F Source: [facility] [place] TYPE CODE TESTS RESULT OUT OF RANGE REFERENCE UNITS LAB VIDH(LOINC) Vit. D 25-Hydroxy 53.9 ng/mL Result Comment: Interpretive Values Based on Total 25(OH) Vitamin D: Deficient <20 ng/mL Insufficient 20 - <30 ng/mL Sufficient 30-100 ng/mL Performed By: #### [id number], L IPID, A1C, CBC, PBNP, VIDH, ANEU, GFR, PSA, TSHR, CMP, ADIFF #### [place] [address] [place], [place] [address] A1C Collected: 1:13 PM Status: F Source: [facility] [place] TYPE CODE TESTS RESULT OUT OF RANGE REFERENCE UNITS LAB A1C([facility]) Hgb A1c 6.2 4.3-6.4 % LAB eAG([facility]) Est Avg Glucose 131 mg/dL Result Comment: Estimated Av erage Glucose calculated by equation ((28.7xA1C)- 46.7) Estimated average glucose (eAG) is a calculated value from Hemoglobin A1C and is sales representative of the average blood glucose level in the last 2-3 month period. Normal range: less than 114 mg/dL Performed By: #### [id number], L IPID, A1C, CBC, PBNP, VIDH, ANEU, GFR, PSA, TSHR, CMP, ADIFF #### [place] [address] [place], [place] [address] APOB Collected: 10/17/2024 1:13 PM Status: F Source: [facility] [place] TYPE CODE TESTS RESULT OUT OF RANGE REFERENCE UNITS LAB [id number]([facility]) Apolipoprotein B 86 <90 m g/dL Result Comment: Desirable < 90 Borderline High 90 - 99 High 100 - 130 Very High >130 ASCVD RISK THERAPEUTIC TARGET CATEGORY APO B (mg/dL) Very High Risk <80 (if extreme risk <70) High Risk <90 Moderate Risk <90 Performed At: [address] [id number] Ghulam Kenny MD Ph:[phone] Performed By: #### [id number], L IPID, A1C, CBC, PBNP, VIDH, ANEU, GFR, PSA, TSHR, CMP, ADIFF #### [place] [address] [place], [place] [address] CNCO Observed: 08/25/2024 12:00 AM Status: COMPLETED Source: [facility] Letter Text CTA CHEST (GATED) W IVCON Observed: 08/12 1:19 PM Status: F Source: [facility] * * *Final Report* * * DATE OF EXAM: Aug 22 2024 1:19PM [facility] 0125 - CTA CHEST (GATED) W IVCON / PROCEDURE REASON: I77.89-Enlarged thoracic aorta (HCC) * * * * Physician Interpretation * * * * CTA Aorta chest Direct Image Comparison: none HISTORY: 74 years old Male with chronic h/o dilated thoracic aorta by echo for further evaluation, along with atrial fibrillation, hypertension, dyslipidemia, obesity, BRENDA, and prostate cancer. Evaluation for diagnostic clarification and further treatment options. There is request to define thoracic and aortic anatomy TECHNIQUE: SCANNER: Alektrona Ascend multidetector scanner PROTOCOL: Prospectively triggered helical high-pitch acquisitions (triggered Flash-mode) was performed following the intravenous administration of contrast material. Scan Range: thoracic inlet to the diaphragm CT Dose-Length Product (DLP): 307 mGy*cm CT Dose Reduction Employed: Automated exposure control(AEC) and iterative recon CONTRAST: IV administration of 90 ml Omnipaque 350 Scan acquisition: uncomplicated Macro Version: [id number] For optimization of anatomic evaluation, advanced 3-D off-line postprocessing was performed on a dedicated workstation by the interpreting physician. STUDY LIMITATIONS: None. RESULT: LINES, TUBES and DEVICES: None CHEST: Chest wall anatomy: symmetric gynecomastia. LUNGS: mild bibasilar atelectasis. Small (<6 mm) non-calcified lung nodules. MEDIASTINUM: unremarkable. PERICARDIUM: unremarkable CENTRAL PULMONARY ARTERY: ectasia/mild dilation (MPA 3.1 cm). Assessment is limited due to limited contrast enhancement. CENTRAL VENOUS and PULMONARY VENOUS RETURN: normal. Coronary Sinus: normal size PULMONARY VEINS: Major pulmonary veins are widely patent without evidence of pulmonary vein stenosis. Left sided veins drain separately into the LA. Right middle vein is a branch of the right superior vein RSPV (right superior): Normal; no luminal stenosis. No wall changes. RIPV (right inferior): Normal; no luminal stenosis. No wall changes. RMPV (right middle): Normal; no luminal stenosis. No wall changes. LSPV (left superior): Normal; no luminal stenosis. No wall changes. LIPV (left inferior): Normal; no luminal stenosis. No wall changes. CORONARY ANATOMY: normal origin of the coronary arteries. Moderate calcified atherosclerotic changes of the coronary arteries. However, the current study is not optimized for coronary assessment. CARDIAC CHAMBERS: LEFT VENTRICLE: prominent. RIGHT VENTRICLE: normal size Left Atrium: mildly dilated. IRINA: normal. No thrombus. Right Atrium: mildly dilated MITRAL VALVE: assessment is limited in the current study - no leaflet calcification. No annular calcification TRICUSPID and PULMONIC VALVE: appear unremarkable. AORTIC VALVE: assessment is limited in this single-phase study, appears trileaflet. No leaflet calcification. AORTA: Pathology: No acute aortic pathology. Intervention: None Complications: n/a Aortic Size: Dilation aortic root and ascending aorta. The remaining segments of the thoracic aorta are normal in size STJ: maintained. Wall Changes: minimal atherosclerotic changes. Arch Branch Vessels: Patent, normal size proximal segments of the arch branch vessels, without evidence of wall changes. Separate origin of the left vertebral artery. AORTIC DIMENSIONS: [place] AORTIC ROOT: 4.0 cm measured [id number] area 11.0 cm2 mid ASCENDING THORACIC AORTA: 4.7 cm area 17.0 cm2, indexed 9.3 cm2/m mid AORTIC ARCH: 3.3 cm proximal DESCENDING THORACIC AORTA: 2.9 cm limited upper ABDOMEN: unremarkable BONES and SOFT TISSUES: degenerative changes of the thoracic spine. S/P left shoulder surgery. On Site Property Manager (topogram) images: No additional findings. IMPRESSION: 1. Moderate dilation of the mid ascending aorta (4.7 cm, 17.0 cm2, 9.3 cm2/m) and mild ectasia/dilation of the aortic root (4.0 cm, 11.0 cm2). The remaining thoracic aorta is normal in course, caliber and has minimal atherosclerotic changes. No acute aortic pathology identified. 2. Normal pulmonary venous anatomy without pulmonary vein stenosis. 3. No left atrial or left atrial appendage thrombus. Mild biatrial dilation. 4. Small (<6 mm) non-calcified lung nodules. Incidental Finding: Follow-up Acuity: Incidental Finding: Solid: <6 mm (solitary or multiple) Routing Code: N/A Recommendation: No imaging follow-up is recommended Time Frame: N/A Comments: If there are risk factors for lung malignancy, a follow-up chest CT exam could be obtained in 12 months --END OF FINDING-- 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: ABEBE Transcribe Date/Time: Aug 22 2024 5:06P Dictated by : ZOILA VÁSQUEZ MD This examination was interpreted and the report reviewed and electronically signed by: ZOILA VÁSQUEZ MD on Aug 22 2024 5:51PM EST [id number] ACTIONABLE PROGRESS Observed: 08/22/2024 1:00 PM Status: COMPLETED Source: [facility] HNO ID: [id number] Author: VANITA DE LA CRUZ, TECHNOLOGIST Service: Radiology Author Type: Technologist Type: Progress Notes Filed: 08/22/2024 13:16 Note Text: Radiology Service Progress Note PATIENT NAME: Anya Kamara DATE OF SERVICE: August 22, 2024 TIME: 1:11 PM PATIENT IDENTITY VERIFICATION COMPLETED USING TWO (2) IDENTIFIERS: Name and Date of confirmed by patient verbally and Name and Date of confirmed by identification band. FALL SCREENING: Has the patient had 2 falls in the last year or 1 fall with injury or currently using an Ambulatory Assistive Device (Walker, Cane, Wheelchair, Crutches, etc.)? No PATIENT GENDER DATA: Assigned male at PATIENT RELEVANT IMPLANT DATA REVIEWED: Yes PATIENT PRESENTS WITH AN IMPLANTABLE OR ATTACHED TRANSACTIONAL PARALEGAL: No RADIOLOGY DEPARTMENT: CT; Exam(s) Completed: Cardiac PERIPHERAL IV DATA: Site assessment: Clean,Dry and Intact, Site disposition Discontinued SIGNED BY: TECHNOLOGIST Sybil August 22, 2024 1:11 PM NURSING PROG Observed: 08/22/2024 1:00 PM Status: COMPLETED Source: [facility] HNO ID: [id number] Author: ESPERANZA BROOKS RN Service: Radiology Author Type: Registered Nurse Type: Nursing Progress Note Filed: 08/22/2024 13:09 Note Text: Radiology Service Progress Note DATE OF SERVICE: August 22, 2024 TIME: 1:09 PM PATIENT IDENTITY VERIFICATION COMPLETED USING TWO (2) STANDARD IDENTIFIERS: Name and Date of confirmed by patient verbally and Name and Date of confirmed by identification band. FALL SCREENING: Has the patient had 2 falls in the last year or 1 fall with injury or currently using an Ambulatory Assistive Device (Walker, Cane, Wheelchair, Crutches, etc.)? No PATIENT GENDER DATA: Assigned male at ALLERGIES: Reviewed and unchanged CONTRAST ALLERGY: No EXAM: CT -CONTRAST INDUCED NEPHROPATHY RISK FACTORS: Patient age > 60 years CREATININE: Creatinine Date Value Ref Range Status 08/18/2024 1.17 0.73 - 1.22 mg/dL Final 01/03/2024 1.23 (H) 0.73 - 1.22 mg/dL Final 03/13/2022 1.27 (H) 0.73 - 1.22 mg/dL Final Estimated Glomerular Filtration Rate Date Value Ref Range Status 08/18/2024 65 >=60 mL/min/1.73m? Final Comment: Estimated Glomerular Filtration Rate (eGFR) is calculated using the 2020 CKD-EPI creatinine equation. This equation utilizes serum creatinine, sex, and age as parameters. The creatinine assay has traceable calibration to isotope dilution-mass spectrometry. Refer to KDIGO guidelines for clinical interpretation. In patients with unstable renal function, e.g. those with acute kidney injury, the eGFR may not accurately reflect actual GFR. eGFR- Date Value Ref Range Status 06/16/2017 >60 Final P.O.C.T. RESULTS: POC done: Yes, See Lab Tab TREATMENT: N/A IV SITE: Ambulatory: A peripheral IV was started in the Right antecubital site with a Angio cath: 20 gauge. IV SITE APPEARANCE: Clean,Dry and Intact SIGNATURE: Esperanza Brooks RN PATIENT NAME: Anya Kamara DATE: August 22, 2024 TIME: 1:09 PM CNPN Observed: 08/22/2024 12:00 AM Status: COMPLETED Source: [facility] Telephone (JENNIFER) ANYA KAMARA ([id number]) 1950 M [facility] Date Time Provider Department 08/22/24 ELAYNE EDWARDS During your visit today, we recorded the following information about you: Dirk Thayer RN 08/22/2024 2:40 PM Signed Pt dropped off BMS forms. Dirk Thayer RN 08/25/2024 3:37 PM Signed Forms signed Faxed to [phone] Confirmation received. Placed in PSS for scan Rios De Luna RN 09/12/2024 11:45 AM Addendum Pt stopped by office for update of BMS application. Called BMS pt has not met the out of pocket cost for 2024. Spoke to pt about out of pocket Rx cost. Phone number given to pt for him to call BMS. Allergies As of Date: 08/22/2024 Noted Allergy Reaction PERCOCET (OXYCODONE-ACETAMINOPHEN)09/15/2016 9 - Itching Comments: Pt took 2 doses close together (per patient) Date Reviewed: 08/22/2024 Reviewed by: Vanita De La Cruz, TECHNOLOGIST - Fully Assessed Reason for Visit: Forms [583] Cmt: BMS Prescriptions as of 09/12/2024 - dofetilide (TIKOSYN) 125 mcg capsule TAKE 1 CAPSULE BY MOUTH TWICE DAILY - apixaban (ELIQUIS) 5 mg tab(s) Take 1 tablet by mouth two times a day. - LORAZEPAM ORAL Take 0.5 mg by mouth as needed. - metoprolol succinate ER (TOPROL XL) 25 mg 24 hr tablet Take 0.5 tablets by mouth once daily. - losartan (COZAAR) 25 mg tablet Take 1 tablet by mouth once daily. - thiamine (VITAMIN B1) 100 mg tablet 1 tablet by ORAL/FEEDING TUBE route once daily. - benzonatate (TESSALON PERLES) 100 mg capsule Take 2 capsules by mouth three times daily as needed for cough for up to 20 doses. - loperamide (IMODIUM) 2 mg cap(s) Take 2 mg by mouth four times daily as needed for diarrhea. - finasteride (PROSCAR) 5 mg tablet once daily. - tamsulosin (FLOMAX) 0.4 mg ORAL Cp24 Take 1 capsule by mouth daily at bedtime. 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.01] 01/07/2022 Elevated LFTs [R79.89] 01/07/2022 Anemia [D64.9] 01/07/2022 Elevated serum creatinine [R79.89] 01/07/2022 Chest pain [R07.9] 01/08/2022 Supratherapeutic INR [R79.1] 01/09/2022 Steroid-induced hyperglycemia [R73.9, T38.0X5A] 01/09/2022 COPD (chronic obstructive pulmonary disease) (H*01/10/2022 Stage 3a chronic kidney disease (HCC) [N18.31] 01/11/2022 Subacute frontal sinusitis [J01.10] 01/13/2022 Atrial fibrillation (HCC) [I48.91] 02/08/2022 Mitral valve insufficiency [I34.0] 06/01/2022 Encounter for monitoring dofetilide therapy [Z5*06/01/2022 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 The ADA defines fasting as no caloric intake for at least 8 hours. Fasting plasma glucose results between 100 to 125 mg/dL indicate increased risk for diabetes (prediabetes). Fasting plasma glucose results greater than or equal to 126 mg/dL meet the criteria for diagnosis of diabetes. In the absence of unequivocal hyperglycemia, results should be confirmed by repeat testing. In a patient with classic symptoms of hyperglycemia or hyperglycemic crisis, random plasma glucose results greater than or equal to 200 mg/dL meet the criteria for diagnosis of diabetes. Reference: Standards of Medical Care in Diabetes 2016, [place] Diabetes Association. Diabetes Care. 2016.39(Suppl 1). LAB 3094-0(LOINC) BUN SerPl-mCnc 16 9-24 mg/ dL LAB 2160-0(LOINC) Creat SerPl-mCnc 1.17 0.73-1.22 mg/dL LAB 2951-2(LOINC) Sodium SerPl-sCnc 142 136-144 mmol/L LAB 2823-3(LOINC) Potassium SerPl-sCnc 4.5 3.7-5.1 mmol/L LAB 2075-0(LOINC) Chloride SerPl-sCnc 105 98-107 mmol/L LAB 2028-9(LOINC) CO2 SerPl-sCnc 27 22-30 mmo l/L LAB 98395-4(LOINC) Anion Gap SerPl-sCnc 10 8-15 mmol/L LAB 62506-4(LOINC) Calcium SerPl-mCnc 9.6 8.5-10.2 mg/dL LAB 01348-1(LOINC) Creatinine + eGFR Pnl SerPlBld 65 >=60 mL/min/1. 73m??? Result Comment: Estimated Gl omerular Filtration Rate (eGFR) is calculated using the 2020 CKD-EPI creatinine equation. This equation utilizes serum creatinine, sex, and age as parameters. The creatinine assay has traceable calibration to isotope dilution-mass spectrometry. Refer to KDIGO guidelines for clinical interpretation. In patients with unstable renal function, e.g. those with acute kidney injury, the eGFR may not accurately reflect actual GFR. Performed By: #### 22850-4 # ### [facility] CLIA [id number] [address] [place] [address] [facility] Observed: 07/31/2024 12:00 AM Status: COMPLETED Source: [facility] Letter Text PROGRESS Observed: 07/08/2024 11:38 AM Status: COMPLETED Source: [facility] HNO ID: [id number] Author: RIOS DE LUNA RN Service: ? Author Type: Registered Nurse Type: Progress Notes Filed: 07/08/2024 11:39 Note Text: Called pt, informed him Rx has been sent to pharmacy. Verbalizes understanding. CNNURSE Observed: 07/07/2024 3:30 PM Status: COMPLETED Source: [facility] Nurse Visit (JENNIFER) ANYA KAMARA ([id number]) 1950 M [facility] Date Time Provider Department 07/07/24 3:30 PM NURSE CARD NELDA STEINER During your visit today, we recorded the following information about you: Rios De Luna RN 07/07/2024 2:46 PM Signed Heart, Vascular AND Thoracic [place] Department of Cardiovascular Medicine OUTPATIENT VISIT TYPE NURSE VISIT PATIENT NAME: Anya Kamara DATE OF SERVICE: 07/07/2024 PRIMARY SEEING EYE DOG TRAINER: Dr. Hwang Anya Kamara is a 74 year old established patient who presents today for a nurse visit per Dr. Anaya for an EKG Patient taking medication as prescribed: Yes Took medication today: Yes VISIT VITAL SIGNS: There were no vitals taken for this visit. Physician/MIQUEL notification and treatment plan: Hotel Breakfast Attendant for final review Nursing Plan: Patient education: production control analyst for final review Patient instructed to call and update the office if there are any changes in current condition. Patient verbalizes understanding of the plan: Yes. Patient's questions were addressed during the visit today: Yes Rios De Luna RN July 07, 2024 2:44 PM Stefany Salas, SHANK STAPLER.MAMMAL CONTROL AGENT 07/07/2024 3:10 PM Signed Addended by: STEFANY SALAS on: 07/07/2024 03:10 PM Modules accepted: Rios Meléndez RN 07/08/2024 11:39 AM Signed Called pt, informed him Rx has been sent to pharmacy. Verbalizes understanding. Referring Provider: ELAYNE EDWARDS [[id number]] Allergies As of Date: 07/07/2024 Noted Allergy Reaction PERCOCET (OXYCODONE-ACETAMINOPHEN)09/15/2016 9 - Itching Comments: Pt took 2 doses close together (per patient) Date Reviewed: 05/05/2024 Reviewed by: Brittani Guzman MA - Fully Assessed Reason for Visit: Nurse Visit [792] Cmt: EKG Primary Visit Diagnosis:Paroxysmal atrial fibrillation (HCC) [I48.0] Order(s):dofetilide (TIKOSYN) 125 mcg capsuleTake 1 capsule by mouth two times a day.Disp: 180 capsuleRfl: 0 Prescriptions as of 07/08/2024 - dofetilide (TIKOSYN) 125 mcg capsule Take 1 capsule by mouth two times a day. - apixaban (ELIQUIS) 5 mg tab(s) Take 1 tablet by mouth two times a day. - LORAZEPAM ORAL Take 0.5 mg by mouth as needed. - metoprolol succinate ER (TOPROL XL) 25 mg 24 hr tablet Take 0.5 tablets by mouth once daily. - losartan (COZAAR) 25 mg tablet Take 1 tablet by mouth once daily. - thiamine (VITAMIN B1) 100 mg tablet 1 tablet by ORAL/FEEDING TUBE route once daily. - benzonatate (TESSALON PERLES) 100 mg capsule Take 2 capsules by mouth three times daily as needed for cough for up to 20 doses. - loperamide (IMODIUM) 2 mg cap(s) Take 2 mg by mouth four times daily as needed for diarrhea. - finasteride (PROSCAR) 5 mg tablet once daily. - tamsulosin (FLOMAX) 0.4 mg ORAL Cp24 Take 1 capsule by mouth daily at bedtime. 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 [Z79.01] 01/07/2022 Elevated LFTs [R79.89] 01/07/2022 Anemia [D64.9] 01/07/2022 Elevated serum creatinine [R79.89] 01/07/2022 Chest pain [R07.9] 01/08/2022 Supratherapeutic INR [R79.1] 01/09/2022 Steroid-induced hyperglycemia [R73.9, T38.0X5A] 01/09/2022 COPD (chronic obstructive pulmonary disease) (H*01/10/2022 Stage 3a chronic kidney disease (HCC) [N18.31] 01/11/2022 Subacute frontal sinusitis [J01.10] 01/13/2022 Atrial fibrillation (HCC) [I48.91] 02/08/2022 Mitral valve insufficiency [I34.0] 06/01/2022 Encounter for monitoring dofetilide therapy [Z5*06/01/2022 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 Medications Discontinued During This Encounter Prescriptions - dofetilide (TIKOSYN) 125 mcg capsule (Discontinued) TAKE 1 CAPSULE BY MOUTH TWICE DAILY Encounter Status:Closed by RIOS DE LUNA on 07/07/24 ECHO Observed: 07/07/2024 2:44 PM Status: F Source: [facility] Echocardiography Report: Tra nsthoracic Echo [facility] Office Date of service: 07/07/2024 2:44:44 PM ASSISTANT PRN Ordering physician: ELAYNE EDWARDS Indication: Nonsustained atrial fibrillation Technologist: Madeline Moise Interpreting physician: Елена Hwang MD PATIENT: Name: MR. ANYA KAMARA : 1950 Age: 74 years Gender: M History of hypertension and dyslipidemia. Primary rhythm: sinus. Height: 182.90 cm BSA: 2.45 m Weight: 118.00 kg BMI: 35.3 kg/m Heart rate 64 bpm Blood pressure 126/84 mmHg Technically difficult exam due to body habitus. Color Doppler was utilized to interrogate the cardiac valves assessed and spectral Doppler was utilized to determine the flow velocities and pressure gradients reported in this exam. MEASUREMENTS: Value Indexed Normal Max aortic dimension 4.7 cm Ao < 3.8 Left atrial volume 76 ml (Alvarez's) 32 ml/m Semaj <= 34 LV ID (diastole) 5.3 cm (2D) 2.16 cm/m LV ID (systole) 3.2 cm (2D) 1.32 cm/m IVS, leaflet tips 1.1 cm (2D) Posterior wall thickness 1.0 cm (2D) Left ventricular mass 210 g (2D) 86 g/m LV stroke volume 56 ml (2D biplane) LV end diastolic volume 97 ml (2D biplane) 39.5 ml/m 34<=EDVi<75 LV end systolic volume 40 ml (2D biplane) 16.5 ml/m Ejection Fraction 58 % (2D biplane) EF > 52 FINDINGS: LEFT VENTRICLE The left ventricle is normal in size. Left ventricular systolic function is normal. Normal left ventricular diastolic function. Mitral annular lateral E/e': 10.0. Mitral annular septal E/e': 11.0. Wall Motion: All scored segments are normal. RIGHT VENTRICLE The right ventricle is normal in size. Right ventricular systolic function is normal globally. RV systolic tissue Doppler velocity is 18.3 cm/s. Tricuspid annular displacement is 2.0 cm. Estimated right ventricular systolic pressure is likely underestimated due to a weak or incomplete tricuspid regurgitation signal and is, at least, 25 mmHg consistent with normal pulmonary artery pressures. Estimated right atrial pressure is 3 mmHg based on IVC assessment. LEFT ATRIUM The left atrial cavity is normal in size. RIGHT ATRIUM The right atrial cavity is normal in size. Inferior Vena Cava: The inferior vena cava appears normal measuring 1.8 cm. The vessel decreases greater than 50 percent with inspiration. MITRAL VALVE There is mild (1+) mitral valve regurgitation. There is mild thickening. The pressure half time is 76 msec. The peak mitral E/A ratio is 1.33. The mitral flow deceleration time is 261 msec. TRICUSPID VALVE The tricuspid valve leaflets are structurally normal. There is trace tricuspid valve regurgitation. The hepatic venous pattern showed normal systolic flow. AORTIC VALVE The aortic valve was not well seen. There is trace (trace - 1+) aortic valve regurgitation. The peak gradient is 14 mmHg (peak velocity = 189.0 cm/s). PULMONIC VALVE The pulmonic valve was not seen or not interrogated. AORTA The visualized aorta is dilated. Measurements - Sinus: 3.7 cm. Sinotubular junction 3.2 cm. Mid ascending aorta 4.7 cm. Distal descending diaphragmatic level 2.3 cm. PERICARDIUM There is no pericardial effusion. There is an epicardial fat pad. CONCLUSIONS: - Technically difficult exam due to body habitus. - Exam indication: Nonsustained atrial fibrillation - The left ventricle is normal in size. Left ventricular systolic function is normal. EF = 58 5% (2D biplane) Normal left ventricular diastolic function. - The right ventricle is normal in size. Right ventricular systolic function is normal. - The visualized aorta is dilated with a maximal dimension of 4.7 cm. - There is mild 1+ MR. - Exam was compared with the prior echocardiographic exam performed on 04/11/2023. Prior ascending aorta measured 4.5cm. * * * Final * * * F?rsat Bu F?rsat Medical Image : [id number] PROGRESS Observed: 07/07/2024 2:44 PM Status: COMPLETED Source: [facility] ID: [id number] Author: RIOS DE LUNA RN Service: ? Author Type: Registered Nurse Type: Progress Notes Filed: 07/07/2024 14:46 Note Text: Heart, Vascular AND Thoracic [place] Department of Cardiovascular Medicine OUTPATIENT VISIT TYPE NURSE VISIT PATIENT NAME: Anya Kamara DATE OF SERVICE: 07/07/2024 PRIMARY SEEING EYE DOG TRAINER: Dr. Hwang Anya Kamara is a 74 year old established patient who presents today for a nurse visit per Dr. Anaya for an EKG Patient taking medication as prescribed: Yes Took medication today: Yes VISIT VITAL SIGNS: There were no vitals taken for this visit. Physician/MIQUEL notification and treatment plan: Hotel Breakfast Attendant for final review Nursing Plan: Patient education: production control analyst for final review Patient instructed to call and update the office if there are any changes in current condition. Patient verbalizes understanding of the plan: Yes. Patient's questions were addressed during the visit today: Yes Rios De Luna RN July 07, 2024 2:44 PM ECG01 Observed: 07/07/2024 2:08 PM Status: F Source: [facility] Ventricular Rate : 73 BPM Atrial Rate : 73 BPM P-R Interval : 206 ms QRS Duration : 112 ms Q-T Interval : 402 ms QTC Calculation(Bazett) : 442 ms Calculated P [place] : 80 degrees Calculated R [place] : -60 degrees Calculated T [place] : 58 degrees NORMAL SINUS RHYTHM LEFT AXIS DEVIATION ABNORMAL ECG Confirmed by MD TIPTON QARAB ([id number]) on 07/09/2024 11:29:44 AM NAME : ANYA KAMARA PID : [id number] : 1950 Gender : Male Race : ORD : Procedure Date : Jul 07 2024 14:08:32 Edit Date : Jul 09 2024 11:29:47 Diagnosis: NORMAL SINUS RHYTHM LEFT AXIS DEVIATION ABNORMAL ECG Confirmed by MD TIPTON QARAB ([id number]) on 07/09/2024 11:29:44 AM Test Reason : Location : 211 : [facility] Overread By : MD TIPTON QARAB Edited By : MD TIPTON QARAB Referred By : ELAYNE EDWARDS Acquired by : alina de luna CNPN Observed: 06/20/2024 12:00 AM Status: COMPLETED Source: [facility] Telephone (EPSMN) ANYA KAMARA ([id number]) 1950 M [facility] Date Time Provider Department 06/20/24 DIO ANAYA EPSMN During your visit today, we recorded the following information about you: Maribel Franco RN 06/20/2024 2:27 PM Signed ----- Message from Dio Anaya MD sent at 05/05/2024 8:53 AM EST ----- Please schedule for PVI - farapulse. CARTO [place] On Eliquis - hold AM dose. thanks bb Maribel Franco RN 06/20/2024 2:57 PM Signed Patient offered and accepted procedure date of Sunday11/07/[address] Anaya. Patient is on Eliquis, instructed to continue without interruption, hold dose the morning of procedure. Per patient's request, placed on the cancellation list for a sooner procedure date. Patient will need pre op appointments within 30 days of procedure for OPD, Labs (CBC,BMP, 30 Day Type AND Screen, Confirm) and EKG. Patient has cardiology appointment at [facility] on 10/03/24, patient going to reschedule that to be within 30 days of procedure date for HANDP. Patient to get labs done prior to procedure at [facility] prior to procedure, patient asks we put in lab appointment to serve as reminder for him. Explained need for labs to be done at [facility] so that [facility] and we could put in lab appointment for [facility]. Patient states he will get them done at [facility] when he has cardiology appointment. Letter with instructions mailed to the patient. Maribel Franco RN, RN Rios De Luna RN 06/23/2024 8:18 AM Signed Pt called left VM asking to change his appointment with Jerry GARCIA on 10/03 to after the . Anita Gipson 06/23/2024 2:06 PM Signed Patient is scheduled Maribel Franco RN 06/25/2024 6:14 PM Signed Patient noted to have rescheduled OPD to 10/15. Called and spoke with patient and let him know lab appointment scheduled on 10/31/24 at [facility]. Patient stated understanding. Maribel Franco, UMAIR, RN Allergies As of Date: 06/20/2024 Noted Allergy Reaction PERCOCET (OXYCODONE-ACETAMINOPHEN)09/15/2016 9 - Itching Comments: Pt took 2 doses close together (per patient) Date Reviewed: 05/05/2024 Reviewed by: Brittani Guzman MA - Fully Assessed Reason for Visit: Procedure [88] Cmt: EP: PVI ablation procedure Primary Visit Diagnosis:Atrial fibrillation, unspecified type (HCC) [I48.91] Order(s):BASIC METABOLIC PANEL [SQBMP] Order #: [id number] FUTURE COMPLETE BLOOD COUNT [SQCBC] Order #: [id number] FUTURE CONFIRM BLOOD TYPE [SQCONABO] Order #: [id number] FUTURE TYPE AND SCREEN,30 DAY [BBRPLB98] Order #: [id number] FUTURE Prescriptions as of 06/25/2024 - dofetilide (TIKOSYN) 125 mcg capsule TAKE 1 CAPSULE BY MOUTH TWICE DAILY - apixaban (ELIQUIS) 5 mg tab(s) Take 1 tablet by mouth two times a day. - LORAZEPAM ORAL Take 0.5 mg by mouth as needed. - metoprolol succinate ER (TOPROL XL) 25 mg 24 hr tablet Take 0.5 tablets by mouth once daily. - losartan (COZAAR) 25 mg tablet Take 1 tablet by mouth once daily. - thiamine (VITAMIN B1) 100 mg tablet 1 tablet by ORAL/FEEDING TUBE route once daily. - benzonatate (TESSALON PERLES) 100 mg capsule Take 2 capsules by mouth three times daily as needed for cough for up to 20 doses. - loperamide (IMODIUM) 2 mg cap(s) Take 2 mg by mouth four times daily as needed for diarrhea. - finasteride (PROSCAR) 5 mg tablet once daily. - tamsulosin (FLOMAX) 0.4 mg ORAL Cp24 Take 1 capsule by mouth daily at bedtime. 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] 09/15/2016 Bilateral hearing loss [H91.93] 09/15/2016 Chronic headaches [R51.9, G89.29] 09/18/2016 09/18/2016 COPD with acute exacerbation (HCC) [J44.1] 01/07/2022 BRENDA on CPAP [G47.33] 01/07/2022 Obesity (BMI 35.0-39.9 without comorbidity) [E6*01/07/2022 shelter current use of anticoagulant [Z79.01] 01/07/2022 Elevated LFTs [R79.89] 01/07/2022 Anemia [D64.9] 01/07/2022 Elevated serum creatinine [R79.89] 01/07/2022 Chest pain [R07.9] 01/08/2022 Supratherapeutic INR [R79.1] 01/09/2022 Steroid-induced hyperglycemia [R73.9, T38.0X5A] 01/09/2022 COPD (chronic obstructive pulmonary disease) (H*01/10/2022 Stage 3a chronic kidney disease (HCC) [N18.31] 01/11/2022 Subacute frontal sinusitis [J01.10] 01/13/2022 Atrial fibrillation (HCC) [I48.91] 02/08/2022 Mitral valve insufficiency [I34.0] 06/01/2022 Encounter for monitoring dofetilide therapy [Z5*06/01/2022 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 HNO ID: [id number] Author: DIO ANAYA MD Service: ? Author Type: Physician Type: Progress Notes Filed: 05/05/2024 08:53 Note Text: EP STAFF NOTE: Please note: This note has been produced using speech recognition software and may contain errors related to that system including grammar, punctuation, spelling, gender and words and phrases that may be inappropriate Consultation requested by Dr. Pillai for an opinion regarding management of AF and my final recommendations will be communicated back to the requesting physician by way of shared medical record OR letter via fax/US mail. I have reviewed the above information and examined the patient and confirm the above with the following additions/modifications. ECG: PE: Vitals: BP 126/84 Pulse (!) 57 Ht 182.9 cm (6') Wt 118 kg (260 lb 2.3 oz) SpO2 98% BMI 35.28 kg/m? General: Appears well nourished. In no acute distress. Skin: No clubbing. No cyanosis. Eyes: EOMI Oropharynx: No oral lesions. Neck: no JVD. Lungs: Unlabored Heart: RRR Abdomen: nontender Extremities: No peripheral edema bilaterally. Neuro: Oriented x3, alert, cooperative, gait coordinated. PROBLEM LIST: Paroxysmal atrial fibrillation dx 2017 - hospitalization 12/2021 for AF/RVR, started on Sotalol and underwent DCC on 01/11/22 with a long post-conversion pause noted at the time; sotalol was ultimately discontinued- Started Tikosyn 125 mcg on 02/08/22 [id number] score 2 (Age AND HTN) - on Eliquis 5 mg BID Dilated thoracic ascending aorta - Echo 04/11/23: Max dimension 4.5 cm at the mid ascending HTN Obstructive sleep apnea - Compliant on CPAP prostate cancer ETOH use emphysema GERD Zio: Zio Patch Enrollment Dates: 04/04/2024-04/10/2024 IRHYTHM FINDINGS: Patient had a min HR of 38 bpm, max HR of 160 bpm, and avg HR of 63 bpm. Predominant underlying rhythm was Sinus Rhythm. First Degree AV Block was present. Bundle Branch Block/IVCD was present. 12 Supraventricular Tachycardia runs occurred, the run with the fastest interval lasting 5 beats with a max rate of 148 bpm, the longest lasting 18.4 secs with an avg rate of 100 bpm. Atrial Fibrillation occurred (9% burden), ranging from 49-160 bpm (avg of 94 bpm), the longest lasting 12 hours 32 mins with an avg rate of 94 bpm. Atrial Fibrillation was present at activation of device. Junctional Rhythm was present. Isolated SVEs were occasional (3.4%, [id number]), SVE Couplets were rare (<1.0%, 123), and SVE Triplets were rare (<1.0%, 17). Isolated VEs were rare (<1.0%), VE Couplets were rare (<1.0%), and no VE Triplets were present. Conclusion: 1. Average heart rate 63 beats minute the minimum 38 beats minute, predominant sinus rhythm. There is a first-degree AV block and bundle branch block present. 2. There were 12 asymptomatic runs of SVT up to 18.4 seconds, up to 148 bpm. 3. Atrial fibrillation occurred 9% of the time with an average heart rate of 94 bpm. Heart rate ranged from 49 to 160 bpm with the longest time period of over 12 hours. 4. There were occasional PACs and rare PVCs present. 5. No symptoms were reported TTE - The left ventricle is normal in size. There is mild concentric left ventricular hypertrophy. Left ventricular systolic function is normal. EF = 60 ? 5% (2D biplane) Definity contrast used for endocardial border detection. Indeterminate left ventricular diastolic dysfunction. - The right ventricle is normal in size. Right ventricular systolic function is normal. - There are no significant valvular abnormalities. - The visualized aorta is dilated with a maximal dimension of 4.5 cm. - Exam was compared with the prior echocardiographic exam performed on 01/09/2022, the degree of aortic and mitral insufficiency has decreased from previous study. IMPRESSION: 73 y/o with symptomatic PAF - progressing to persistent AF. Initially managed with Sotalol, now low dose Tikosyn. Worsening breakthrough events as of 2023. Reviewed additional rhythm control option including an attempt to uptitrate Tikosyn to 250 BID versus a switch to Amiodarone versus PF PVI. R/B discussed. Familiar with ablation - younger brother underwent PVI for AF. Agreed to the following: PLAN: Tentatively schedule PVI with PF CCM with Toprol, Eliquis and low dose Tikosyn. EKG and BMP q 3 months TTE already scheduled for This note was created with electronic dictation and errors in syntax and meaning may have occurred. Dio Anaya MD Pager: [phone] Office: [phone] I personally examined the patient and repeated the tejeda components of the exam and cardiac history, past medical and surgical history, social and family history. The assessment and plan were formulated and discussed with the patient and family. I spent over 25 minutes (face time) and greater than 50% of this time was spent counseling and/or coordinating the care of the patient with regard the diagnosis and medical regimen Referring Physician: Ezekiel Caro [address] [place] [address] Elayne Edwards [address] [facility] [id number] CNOV Observed: 05/05/2024 8:30 AM Status: COMPLETED Source: [facility] Office Visit (CARDMM) ANYA KAMARA ([id number]) 1950 M [facility] Date Time Provider Department 05/05/24 8:30 AM DIO ANAYA During your visit today, we recorded the following information about you: Pulse Blood pressure Weight Height 57/minute 126/84 118 kg 1.829 m Dio Anaya MD 05/05/2024 8:53 AM Signed EP STAFF NOTE: Please note: This note has been produced using speech recognition software and may contain errors related to that system including grammar, punctuation, spelling, gender and words and phrases that may be inappropriate Consultation requested by Dr. Pillai for an opinion regarding management of AF and my final recommendations will be communicated back to the requesting physician by way of shared medical record OR letter via fax/US mail. I have reviewed the above information and examined the patient and confirm the above with the following additions/modifications. ECG: PE: Vitals: BP 126/84 Pulse (!) 57 Ht 182.9 cm (6') Wt 118 kg (260 lb 2.3 oz) SpO2 98% BMI 35.28 kg/m? General: Appears well nourished. In no acute distress. Skin: No clubbing. No cyanosis. Eyes: EOMI Oropharynx: No oral lesions. Neck: no JVD. Lungs: Unlabored Heart: RRR Abdomen: nontender Extremities: No peripheral edema bilaterally. Neuro: Oriented x3, alert, cooperative, gait coordinated. PROBLEM LIST: Paroxysmal atrial fibrillation dx 2017 - hospitalization 12/2021 for AF/RVR, started on Sotalol and underwent DCC on 01/11/22 with a long post-conversion pause noted at the time; sotalol was ultimately discontinued- Started Tikosyn 125 mcg on 02/08/22 [id number] score 2 (Age AND HTN) - on Eliquis 5 mg BID Dilated thoracic ascending aorta - Echo 04/11/23: Max dimension 4.5 cm at the mid ascending HTN Obstructive sleep apnea - Compliant on CPAP prostate cancer ETOH use emphysema GERD Zio: Zio Patch Enrollment Dates: 04/04/2024-04/10/2024 IRHYTHM FINDINGS: Patient had a min HR of 38 bpm, max HR of 160 bpm, and avg HR of 63 bpm. Predominant underlying rhythm was Sinus Rhythm. First Degree AV Block was present. Bundle Branch Block/IVCD was present. 12 Supraventricular Tachycardia runs occurred, the run with the fastest interval lasting 5 beats with a max rate of 148 bpm, the longest lasting 18.4 secs with an avg rate of 100 bpm. Atrial Fibrillation occurred (9% burden), ranging from 49-160 bpm (avg of 94 bpm), the longest lasting 12 hours 32 mins with an avg rate of 94 bpm. Atrial Fibrillation was present at activation of device. Junctional Rhythm was present. Isolated SVEs were occasional (3.4%, 72796), SVE Couplets were rare (<1.0%, 123), and SVE Triplets were rare (<1.0%, 17). Isolated VEs were rare (<1.0%), VE Couplets were rare (<1.0%), and no VE Triplets were present. Conclusion: 1. Average heart rate 63 beats minute the minimum 38 beats minute, predominant sinus rhythm. There is a first-degree AV block and bundle branch block present. 2. There were 12 asymptomatic runs of SVT up to 18.4 seconds, up to 148 bpm. 3. Atrial fibrillation occurred 9% of the time with an average heart rate of 94 bpm. Heart rate ranged from 49 to 160 bpm with the longest time period of over 12 hours. 4. There were occasional PACs and rare PVCs present. 5. No symptoms were reported TTE - The left ventricle is normal in size. There is mild concentric left ventricular hypertrophy. Left ventricular systolic function is normal. EF = 60 ? 5% (2D biplane) Definity contrast used for endocardial border detection. Indeterminate left ventricular diastolic dysfunction. - The right ventricle is normal in size. Right ventricular systolic function is normal. - There are no significant valvular abnormalities. - The visualized aorta is dilated with a maximal dimension of 4.5 cm. - Exam was compared with the prior echocardiographic exam performed on 01/09/2022, the degree of aortic and mitral insufficiency has decreased from previous study. IMPRESSION: 73 y/o with symptomatic PAF - progressing to persistent AF. Initially managed with Sotalol, now low dose Tikosyn. Worsening breakthrough events as of 2023. Reviewed additional rhythm control option including an attempt to uptitrate Tikosyn to 250 BID versus a switch to Amiodarone versus PF PVI. R/B discussed. Familiar with ablation - younger brother underwent PVI for AF. Agreed to the following: PLAN: Tentatively schedule PVI with PF CCM with Toprol, Eliquis and low dose Tikosyn. EKG and BMP q 3 months TTE already scheduled for This note was created with electronic dictation and errors in syntax and meaning may have occurred. Dio Aanya MD Pager: [phone] Office: [phone] I personally examined the patient and repeated the tejeda components of the exam and cardiac history, past medical and surgical history, social and family history. The assessment and plan were formulated and discussed with the patient and family. I spent over 25 minutes (face time) and greater than 50% of this time was spent counseling and/or coordinating the care of the patient with regard the diagnosis and medical regimen Referring Physician: Ezekiel Caro [facility] [place] [address] Elayne Edwards [address] [facility] [address] Referring Provider: ELAYNE EDWARDS [[id number]] Allergies As of Date: 05/05/2024 Noted Allergy Reaction PERCOCET (OXYCODONE-ACETAMINOPHEN)09/15/2016 9 - Itching Comments: Pt took 2 doses close together (per patient) Date Reviewed: 05/05/2024 Reviewed by: Brittani Guzman MA - Fully Assessed Reason for Visit: Ciliary Block Glaucoma Folow Up [3250] Cmt: Follow up Pt reports going in an out of A-fib. States episodes are less frequent then before. Visit Diagnosis:Paroxysmal atrial fibrillation (HCC) [I48.0] Order(s):CONSULT TO ELECTROPHYSIOLOGY [5125807] Order #: [id number]: 1 ECG COMPLETE [ECG01] Order #: [id number] STANDING BASIC METABOLIC PANEL [SQBMP] Order #: [id number] STANDING Prescriptions as of 05/05/2024 - dofetilide (TIKOSYN) 125 mcg capsule Take 1 capsule by mouth two times a day. - apixaban (ELIQUIS) 5 mg tab(s) Take 1 tablet by mouth two times a day. - LORAZEPAM ORAL Take 0.5 mg by mouth as needed. - metoprolol succinate ER (TOPROL XL) 25 mg 24 hr tablet Take 0.5 tablets by mouth once daily. - losartan (COZAAR) 25 mg tablet Take 1 tablet by mouth once daily. - thiamine (VITAMIN B1) 100 mg tablet 1 tablet by ORAL/FEEDING TUBE route once daily. - benzonatate (TESSALON PERLES) 100 mg capsule Take 2 capsules by mouth three times daily as needed for cough for up to 20 doses. - loperamide (IMODIUM) 2 mg cap(s) Take 2 mg by mouth four times daily as needed for diarrhea. - finasteride (PROSCAR) 5 mg tablet once daily. - tamsulosin (FLOMAX) 0.4 mg ORAL Cp24 Take 1 capsule by mouth daily at bedtime. 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] 01/07/2022 Elevated LFTs [R79.89] 01/07/2022 Anemia [D64.9] 01/07/2022 Elevated serum creatinine [R79.89] 01/07/2022 Chest pain [R07.9] 01/08/2022 Supratherapeutic INR [R79.1] 01/09/2022 Steroid-induced hyperglycemia [R73.9, T38.0X5A] 01/09/2022 COPD (chronic obstructive pulmonary disease) (H*01/10/2022 Stage 3a chronic kidney disease (HCC) [N18.31] 01/11/2022 Subacute frontal sinusitis [J01.10] 01/13/2022 Atrial fibrillation (HCC) [I48.91] 02/08/2022 Mitral valve insufficiency [I34.0] 06/01/2022 Encounter for monitoring dofetilide therapy [Z5*06/01/2022 Ascending aorta dilatation (HCC) [I77.810] 06/18/2023 Encounter Status:Closed by DIO ANAYA on 05/05/24 MIMI Observed: 04/22/2024 12:00 AM Status: COMPLETED Source: [facility] Telephone (JENNIFER) ANYA KAMARA ([id number]) 1950 M [facility] Date Time Provider Department 04/22/24 ELAYNE EDWARDS During your visit today, we recorded the following information about you: Rios De Luna RN 04/22/2024 11:23 AM Signed Called [facility] to call us back to review Zio results. Please let me Mr. Kamara know that his preliminary monitor confirmed that he is having intermittent episodes of atrial fibrillation. This is a low burden at 9% and is reasonably controlled with an average rate of 94 bpm. Based on monitor does not appear it is causing him any symptoms. At this point would recommend continuing same medications. He would benefit from an EP consult if he is interested/willing given his difficult to control AF. Let me know if he is willing and where he would like to go ([place], [place], [facility], [facility], etc.) an I will place the order. ThanksElayne APRN.MAMMAL CONTROL AGENT Rios De Luna RN 04/23/2024 11:20 AM Signed Reviewed results with pt. Verbalizes understanding. Pt states he will come to [place] to see EP Rios De Luna RN 04/23/2024 11:33 AM Signed Addended by: RIOS DE LUNA on: 04/23/2024 11:33 AM Modules accepted: Elayne Clavo APRN.[place] 04/23/2024 3:14 PM Signed Addended by: ELAYNE EDWARDS on: 04/23/2024 03:14 PM Modules accepted: Yarely Zhong 04/24/2024 10:19 AM Signed First Attempt- Called patient and left a VM to call back to schedule. Yarely Mcfadden 04/28/2024 1:38 PM Signed Second Attempt- Called patient and left a VM to call back to schedule. Anita Gipson 04/30/2024 11:29 AM Signed Third attempt at contacting patient, left VM to schedule Allergies As of Date: 04/22/2024 Noted Allergy Reaction PERCOCET (OXYCODONE-ACETAMINOPHEN)09/15/2016 9 - Itching Comments: Pt took 2 doses close together (per patient) Date Reviewed: 04/04/2024 Reviewed by: Aden Yuan LPN - Fully Assessed Reason for Visit: Results [95] Cmt: Nisha Primary Visit Diagnosis:Paroxysmal atrial fibrillation (HCC) [I48.0] Order(s):CONSULT TO ELECTROPHYSIOLOGY [1531934] Order #: [id number]: 1 FUTURE Prescriptions as of 04/30/2024 - dofetilide (TIKOSYN) 125 mcg capsule Take 1 capsule by mouth two times a day. - apixaban (ELIQUIS) 5 mg tab(s) Take 1 tablet by mouth two times a day. - LORAZEPAM ORAL Take 0.5 mg by mouth as needed. - metoprolol succinate ER (TOPROL XL) 25 mg 24 hr tablet Take 0.5 tablets by mouth once daily. - losartan (COZAAR) 25 mg tablet Take 1 tablet by mouth once daily. - thiamine (VITAMIN B1) 100 mg tablet 1 tablet by ORAL/FEEDING TUBE route once daily. - benzonatate (TESSALON PERLES) 100 mg capsule Take 2 capsules by mouth three times daily as needed for cough for up to 20 doses. - loperamide (IMODIUM) 2 mg cap(s) Take 2 mg by mouth four times daily as needed for diarrhea. - finasteride (PROSCAR) 5 mg tablet once daily. - tamsulosin (FLOMAX) 0.4 mg ORAL Cp24 Take 1 capsule by mouth daily at bedtime. 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] 09/15/2016 Bilateral hearing loss [H91.93] 09/15/2016 Chronic headaches [R51.9, G89.29] 09/18/2016 09/18/2016 COPD with acute exacerbation (HCC) [J44.1] 01/07/2022 BRENDA on CPAP [G47.33] 01/07/2022 Obesity (BMI 35.0-39.9 without comorbidity) [E6*01/07/2022 shelter current use of anticoagulant [Z79.01] 01/07/2022 Elevated LFTs [R79.89] 01/07/2022 Anemia [D64.9] 01/07/2022 Elevated serum creatinine [R79.89] 01/07/2022 Chest pain [R07.9] 01/08/2022 Supratherapeutic INR [R79.1] 01/09/2022 Steroid-induced hyperglycemia [R73.9, T38.0X5A] 01/09/2022 COPD (chronic obstructive pulmonary disease) (H*01/10/2022 Stage 3a chronic kidney disease (HCC) [N18.31] 01/11/2022 Subacute frontal sinusitis [J01.10] 01/13/2022 Atrial fibrillation (HCC) [I48.91] 02/08/2022 Mitral valve insufficiency [I34.0] 06/01/2022 Encounter for monitoring dofetilide therapy [Z5*06/01/2022 Ascending aorta dilatation (HCC) [I77.810] 06/18/2023 Encounter Status:Closed by RIOS DE LUNA on 04/22/24 ECG01 Observed: 04/04/2024 2:29 PM Status: F Source: [facility] Ventricular Rate : 86 BPM QRS Duration : 106 ms Q-T Interval : 398 ms QTC Calculation(Bazett) : 476 ms Calculated R [place] : -67 degrees Calculated T [place] : 68 degrees ATRIAL FIBRILLATION LEFT ANTERIOR FASCICULAR BLOCK MINIMAL VOLTAGE CRITERIA FOR LVH, MAY BE NORMAL VARIANT ( [place] product ) NONSPECIFIC ST ABNORMALITY ABNORMAL ECG Confirmed by MD TIPTON QARAB ([id number]) on 04/07/2024 3:48:39 PM NAME : ANYA KAMARA PID : [id number] : 1950 Gender : Male Race : ORD : Procedure Date : Apr 04 2024 14:29:56 Edit Date : Apr 07 2024 15:48:41 Diagnosis: ATRIAL FIBRILLATION LEFT ANTERIOR FASCICULAR BLOCK MINIMAL VOLTAGE CRITERIA FOR LVH, MAY BE NORMAL VARIANT ( [place] product ) NONSPECIFIC ST ABNORMALITY ABNORMAL ECG Confirmed by MD TIPTON QARAB ([id number]) on 04/07/2024 3:48:39 PM Test Reason : Location : 211 : [facility] Overread By : MD TIPTON QARAB Edited By : MD TIPTON QARAB Referred By : ELAYNE EDWARDS Acquired by : SMOOTH GALINDO Observed: 04/04/2024 2:00 PM Status: COMPLETED Source: [facility] Office Visit (CARDMM) ANYA KAMARA ([id number]) 1950 M [place] Date Time Provider Department 04/04/24 2:00 PM ELAYNE EDWARDS During your visit today, we recorded the following information about you: Pulse Blood pressure Weight Height 72/minute 118/70 118 kg 1.829 m Elayne Edwards APRN.MAMMAL CONTROL AGENT 04/04/2024 4:02 PM [facility] [place] Bronwyn Edwards Department of Cardiovascular Medicine SECTION OF CLINICAL CARDIOLOGY OUTPATIENT VISIT DATE April 04, 2024 OUTPATIENT VISIT TYPE ESTABLISHED PRIMARY CARE PHYSICIAN: Ezekiel Caro [address] [place] [address] CHIEF COMPLAINT: Follow up HISTORY OF PRESENT ILLNESS: Mr. Kamara is a 73 year old male with history of paroxysmal atrial fibrillation, dilated thoracic ascending aorta, HTN, BRENDA, prostate cancer, emphysema, GERD, and prior alcohol abuse who presents today for a cardiovascular medicine follow-up visit. He was last seen in the office by Dr. Pillai at which time he noted some brief paroxysmal's of atrial fibrillation. He was encouraged to monitor frequency and duration of these with his wooju mobile device and let us know if he developed any symptoms. No further additions or changes were made at that time with plan for follow-up in 6 months. He was subsequently seen in the [place] ED on 03/19/2024 after a mechanical fall in which he hit his head but did not lose consciousness. He required sutures and was discharged later that day. Since his last office visit he has had no perceived recurrence of atrial fibrillation. He continues to have shortness of breath on exertion which he reports is chronic in nature and unchanged from prior. He was previously very active however recently has been limited by his hip pain. He is not participating in any daily aerobic exercise. He does not monitor his heart rate or blood pressure at home. He denies any chest pain, lower extremity edema, orthopnea, PND, lightheadedness, dizziness, presyncope, or syncope. Subjective PAST MEDICAL HISTORY Diagnosis Date A-fib [...] Use Smoking status: Never Smokeless tobacco: Never Vaping Use Vaping status: Never Used Substance Use Topics Alcohol use: Not Currently Alcohol/week: 25.0 standard drinks of alcohol Types: 15 Standard drinks or equivalent, 10 Glasses of Wine (5oz) per week Drug use: No FAMILY HISTORY Problem Relation Age of Onset Diabetes Father Prostate Cancer Brother ALLERGIES: ALLERGIES Allergen Reactions Percocet [Oxycodone* Itching Pt took 2 doses close together (per patient) MEDICATIONS: apixaban (ELIQUIS) 5 mg tab(s) Take 1 tablet by mouth two times a day. LORAZEPAM ORAL Take 0.5 mg by mouth as needed. metoprolol succinate ER (TOPROL XL) 25 mg 24 hr tablet Take 0.5 tablets by mouth once daily. losartan (COZAAR) 25 mg tablet Take 1 tablet by mouth once daily. thiamine (VITAMIN B1) 100 mg tablet 1 tablet by ORAL/FEEDING TUBE route once daily. loperamide (IMODIUM) 2 mg cap(s) Take 2 mg by mouth four times daily as needed for diarrhea. finasteride (PROSCAR) 5 mg tablet once daily. tamsulosin (FLOMAX) 0.4 mg ORAL Cp24 Take 1 capsule by mouth daily at bedtime. dofetilide (TIKOSYN) 125 mcg capsule Take 1 capsule by mouth two times a day. benzonatate (TESSALON PERLES) 100 mg capsule Take 2 capsules by mouth three times daily as needed for cough for up to 20 doses. (Patient not taking: Reported on 04/04/2024) REVIEW OF SYSTEMS: CARD: See HPI GENERAL: Negative for: Weight loss or gain, Fever and/or Chills HEENT: Negative for: Headache, Impaired Vision, Glasses, Hearing Impairment, Ringing in Ears, Nosebleeds, Bleeding Gums NECK: Negative for: Swelling, Pain, Stiffness RESPIRATORY: Negative for: Cough, Blood in Sputum, Shortness of breath, Wheezing, Apnea GASTROINTESTINAL: Negative for: Nausea, Vomiting, Diarrhea, Blood in stool, or Dark black stools MUSCULOSKELETAL: +Hip pain NEUROLOGIC: Negative for: focal numbness/weakness, headaches, visual changes, ataxia, speech/language loss SKIN: Negative for: Rashes, Itching HEMATOLOGICAL/LYMPHATIC: Negative for: Easy bruising , Easy bleeding ENDOCRINE: Negative for: Heat or cold intolerance, Excessive sweating, Frequent urination, Frequent thirst Objective PHYSICAL EXAMINATION: BP 118/70 Pulse 72 Ht 182.9 cm (6') Wt 118 kg (260 lb 2.3 oz) SpO2 98% BMI 35.28 kg/m? General: Well appearing, in no acute distress. Skin: No clubbing, no cyanosis. Eyes: Extra ocular movements intact Oropharynx: Teeth in good repair. Neck: No jugular venous distention, no carotid bruits, carotids have a normal upstroke. Lungs: Clear to auscultation bilaterally, no wheezing or rhonchi. Heart: Irregularly irregular rhythm, S1, S2 normal, no S3, no S4, no heaves, no rub and +VAISHNAVI. No peripheral edema . Grade 2/4 distal pulses bilaterally. Abdomen: Soft, nontender, bowel sounds normal, no bruits. Neuro: Oriented to person, place and time, alert, cooperative, gait coordinated. CARDIOVASCULAR MEDICINE TESTING: Last ECHO Result Conclusion ECHO Collected: 04/11/2023 2:39 PM (Final result) Impression: CONCLUSIONS: - Exam indication: Atrial fibrillation - The left ventricle is normal in size. There is mild concentric left ventricular hypertrophy. Left ventricular systolic function is normal. EF = 60 ? 5% (2D biplane) Definity contrast used for endocardial border detection. Indeterminate left ventricular diastolic dysfunction. - The right ventricle is normal in size. Right ventricular systolic function is normal. - There are no significant valvular abnormalities. - The visualized aorta is dilated with a maximal dimension of 4.5 cm. - Exam was compared with the prior echocardiographic exam performed on 01/09/2022, the degree of aortic and mitral insufficiency has decreased from previous study. * * * Final * * * Last EKG Result Conclusion ECG COMPLETE Collected: 04/04/2024 2:29 PM (Preliminary result) Impression: ATRIAL FIBRILLATION LEFT ANTERIOR FASCICULAR BLOCK MINIMAL VOLTAGE CRITERIA FOR LVH, MAY BE NORMAL VARIANT ( [place] product ) NONSPECIFIC ST ABNORMALITY ABNORMAL ECG EKG 04/04/2024: Atrial fibrillation with LAFB at 86 bpm I have personally reviewed the Electrocardiogram. PLAN AND RECOMMENDATIONS: Paroxysmal atrial fibrillation - Initial dx 2017 - Recurrent hospitalization 12/2021 for AF/RVR, started on Sotalol and underwent DCC on 01/11/22 with a long post-conversion pause noted at the time; sotalol was ultimately discontinued - Started Tikosyn 125 mcg on 02/08/22 - [id number] score 2 (Age AND HTN) - Anticoagulated with Eliquis 5 mg BID - Rate controlled on metoprolol succinate 12.5 mg daily - Rhythm controlled on Tikosyn 125 mcg twice daily - Zio event monitor Dilated thoracic ascending aorta - Echo 04/11/23: Max dimension 4.5 cm at the mid ascending - Emphasis on aggressive BP control - Annual echocardiogram monitoring - Echocardiogram Essential hypertension - Optimal control on metoprolol succinate and losartan - Encouraged dietary sodium restriction/DASH diet - Reviewed risks of HTN and principles of treatment - Goal of BP <130/80 Obstructive sleep apnea - Compliant on CPAP CONCLUSION: Patient presents today for follow-up and appears to be doing well from a cardiovascular standpoint. He has no symptoms to suggest cardiac decompensation at this time. EKG in the office today demonstrated atrial fibrillation with LAFB at 86 bpm with stable QTc. He was unaware that he was in atrial fibrillation. He does not monitor heart rate or rhythm at home thus AF duration is unknown. EKG in December was NSR. At this time will place Zio event monitor for further AF burden assessment. Pending results may need to consider Tikosyn use moving forward. He has known dilated thoracic ascending aorta at 4.5 cm on most recent echocardiogram. He is due for repeat at this time. His heart rate and blood pressure remain under optimal control. I have made no additions or changes to his medications. He should continue to actively engage in cardiovascular risk factor modification and follow up with in 3 months for EKG if still on Tikosyn and 6 months with provider, or sooner should need arise/pending Zio results. CONTACT INFORMATION: Elayne Edwards APRN.[facility] Cardiology Nurse Practitioner Section of Regional Cardiology [facility] Dept of Cardiovascular Medicine [facility] Heart and Vascular [place] [address] Office Office This note was partially generated using [employer] voice recognition system and may contain errors related to that system including grammar, punctuation, spelling, and words that may be inappropriate Elayne Edwards APRN.MAMMAL CONTROL AGENT 04/04/2024 2:19 PM Addendum It was great to see you today, as we discussed: 1. Schedule echo to check aorta size 2. Follow up in 6 months or sooner if need arises Allergies As of Date: 04/04/2024 Noted Allergy Reaction PERCOCET (OXYCODONE-ACETAMINOPHEN)09/15/2016 9 - Itching Comments: Pt took 2 doses close together (per patient) Date Reviewed: 04/04/2024 Reviewed by: Aden Yuan LPN - Fully Assessed Reason for Visit: Follow Up [171] Cmt: Room 11 6 mo f/u Primary Visit Diagnosis:Paroxysmal atrial fibrillation (HCC) [I48.0] Other Visit Diagnoses:Encounter for monitoring dofetilide therapy [Z51.81, Z79.899] Enlarged thoracic aorta (HCC) [I77.89] shelter (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 anticoagulants [Z79.01] Primary hypertension [I10] Order(s):dofetilide (TIKOSYN) 125 mcg capsuleTake 1 capsule by mouth two times a day.Disp: 180 capsuleRfl: 0 ECHO [905265] Order #: [id number]: 1 FUTURE ECG COMPLETE [ECG01] Order #: [id number]. #:[id number] OUTSIDE VENDOR CARDIAC OUTPATIENT EXTENDED RHYTHM RECORDING (WITHOUT TELEMETRY) [9897754] Order #: [id number]: 1 Prescriptions as of 04/04/2024 - dofetilide (TIKOSYN) 125 mcg capsule Take 1 capsule by mouth two times a day. - apixaban (ELIQUIS) 5 mg tab(s) Take 1 tablet by mouth two times a day. - LORAZEPAM ORAL Take 0.5 mg by mouth as needed. - metoprolol succinate ER (TOPROL XL) 25 mg 24 hr tablet Take 0.5 tablets by mouth once daily. - losartan (COZAAR) 25 mg tablet Take 1 tablet by mouth once daily. - thiamine (VITAMIN B1) 100 mg tablet 1 tablet by ORAL/FEEDING TUBE route once daily. - benzonatate (TESSALON PERLES) 100 mg capsule Take 2 capsules by mouth three times daily as needed for cough for up to 20 doses. - loperamide (IMODIUM) 2 mg cap(s) Take 2 mg by mouth four times daily as needed for diarrhea. - finasteride (PROSCAR) 5 mg tablet once daily. - tamsulosin (FLOMAX) 0.4 mg ORAL Cp24 Take 1 capsule by mouth daily at bedtime. 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] 09/15/2016 Bilateral hearing loss [H91.93] 09/15/2016 Chronic headaches [R51.9, G89.29] 09/18/2016 09/18/2016 COPD with acute exacerbation (HCC) [J44.1] 01/07/2022 BRENDA on CPAP [G47.33] 01/07/2022 Obesity (BMI 35.0-39.9 without comorbidity) [E6*01/07/2022 shelter current use of anticoagulant [Z79.01] 01/07/2022 Elevated LFTs [R79.89] 01/07/2022 Anemia [D64.9] 01/07/2022 Elevated serum creatinine [R79.89] 01/07/2022 Chest pain [R07.9] 01/08/2022 Supratherapeutic INR [R79.1] 01/09/2022 Steroid-induced hyperglycemia [R73.9, T38.0X5A] 01/09/2022 COPD (chronic obstructive pulmonary disease) (H*01/10/2022 Stage 3a chronic kidney disease (HCC) [N18.31] 01/11/2022 Subacute frontal sinusitis [J01.10] 01/13/2022 Atrial fibrillation (HCC) [I48.91] 02/08/2022 Mitral valve insufficiency [I34.0] 06/01/2022 Encounter for monitoring dofetilide therapy [Z5*06/01/2022 Ascending aorta dilatation (HCC) [I77.810] 06/18/2023 Other instructions from your clinician: It was great to see you today, as we discussed: 1. Schedule echo to check aorta size 2. Follow up in 6 months or sooner if need arises Prescriptions ordered this encounter Disp Refills Start End DOFETILIDE 125 MCG CAPSULE 180 * 0 04/04/2024 07/03/2024 Route: ORAL Sig: Take 1 capsule by mouth two times a day. Medications Discontinued During This Encounter Prescriptions - dofetilide (TIKOSYN) 125 mcg capsule (Discontinued) Take 1 capsule by mouth two times a day. Disposition: Return in about 6 months (around 10/02/2024). Follow-up and Disposition History for Encounter Date Provider Department Center 04/04/2024 [id number] Encounter Status:Closed by ELAYNE EDWARDS on 04/04/24 PROGRESS Observed: 04/04/2024 2:00 PM Status: COMPLETED Source: [facility] ID: [id number] Author: ELAYNE EDWARDS APRN.[employer] CONTR[employer] AGENT Service: ? Author Type: Nurse Practitioner Type: Progress Notes Filed: 04/04/2024 16:02 Note Text: [facility] [place] [facility] Department of Cardiovascular Medicine SECTION OF CLINICAL CARDIOLOGY OUTPATIENT VISIT DATE April 04, 2024 OUTPATIENT VISIT TYPE ESTABLISHED PRIMARY CARE PHYSICIAN: Ezekiel Caro [facility] [place] [address] CHIEF COMPLAINT: Follow up HISTORY OF PRESENT ILLNESS: Mr. Kamara is a 73 year old male with history of paroxysmal atrial fibrillation, dilated thoracic ascending aorta, HTN, BRENDA, prostate cancer, emphysema, GERD, and prior alcohol abuse who presents today for a cardiovascular medicine follow-up visit. He was last seen in the office by Dr. Pillai at which time he noted some brief paroxysmal's of atrial fibrillation. He was encouraged to monitor frequency and duration of these with his wooju mobile device and let us know if he developed any symptoms. No further additions or changes were made at that time with plan for follow-up in 6 months. He was subsequently seen in the [place] ED on 03/19/2024 after a mechanical fall in which he hit his head but did not lose consciousness. He required sutures and was discharged later that day. Since his last office visit he has had no perceived recurrence of atrial fibrillation. He continues to have shortness of breath on exertion which he reports is chronic in nature and unchanged from prior. He was previously very active however recently has been limited by his hip pain. He is not participating in any daily aerobic exercise. He does not monitor his heart rate or blood pressure at home. He denies any chest pain, lower extremity edema, orthopnea, PND, lightheadedness, dizziness, presyncope, or syncope. Subjective PAST MEDICAL HISTORY Diagnosis Date A-fib [...] Use Smoking status: Never Smokeless tobacco: Never Vaping Use Vaping status: Never Used Substance Use Topics Alcohol use: Not Currently Alcohol/week: 25.0 standard drinks of alcohol Types: 15 Standard drinks or equivalent, 10 Glasses of Wine (5oz) per week Drug use: No FAMILY HISTORY Problem Relation Age of Onset Diabetes Father Prostate Cancer Brother ALLERGIES: ALLERGIES Allergen Reactions Percocet [Oxycodone* Itching Pt took 2 doses close together (per patient) MEDICATIONS: apixaban (ELIQUIS) 5 mg tab(s) Take 1 tablet by mouth two times a day. LORAZEPAM ORAL Take 0.5 mg by mouth as needed. metoprolol succinate ER (TOPROL XL) 25 mg 24 hr tablet Take 0.5 tablets by mouth once daily. losartan (COZAAR) 25 mg tablet Take 1 tablet by mouth once daily. thiamine (VITAMIN B1) 100 mg tablet 1 tablet by ORAL/FEEDING TUBE route once daily. loperamide (IMODIUM) 2 mg cap(s) Take 2 mg by mouth four times daily as needed for diarrhea. finasteride (PROSCAR) 5 mg tablet once daily. tamsulosin (FLOMAX) 0.4 mg ORAL Cp24 Take 1 capsule by mouth daily at bedtime. dofetilide (TIKOSYN) 125 mcg capsule Take 1 capsule by mouth two times a day. benzonatate (TESSALON PERLES) 100 mg capsule Take 2 capsules by mouth three times daily as needed for cough for up to 20 doses. (Patient not taking: Reported on 04/04/2024) REVIEW OF SYSTEMS: CARD: See HPI GENERAL: Negative for: Weight loss or gain, Fever and/or Chills HEENT: Negative for: Headache, Impaired Vision, Glasses, Hearing Impairment, Ringing in Ears, Nosebleeds, Bleeding Gums NECK: Negative for: Swelling, Pain, Stiffness RESPIRATORY: Negative for: Cough, Blood in Sputum, Shortness of breath, Wheezing, Apnea GASTROINTESTINAL: Negative for: Nausea, Vomiting, Diarrhea, Blood in stool, or Dark black stools MUSCULOSKELETAL: +Hip pain NEUROLOGIC: Negative for: focal numbness/weakness, headaches, visual changes, ataxia, speech/language loss SKIN: Negative for: Rashes, Itching HEMATOLOGICAL/LYMPHATIC: Negative for: Easy bruising , Easy bleeding ENDOCRINE: Negative for: Heat or cold intolerance, Excessive sweating, Frequent urination, Frequent thirst Objective PHYSICAL EXAMINATION: BP 118/70 Pulse 72 Ht 182.9 cm (6') Wt 118 kg (260 lb 2.3 oz) SpO2 98% BMI 35.28 kg/m? General: Well appearing, in no acute distress. Skin: No clubbing, no cyanosis. Eyes: Extra ocular movements intact Oropharynx: Teeth in good repair. Neck: No jugular venous distention, no carotid bruits, carotids have a normal upstroke. Lungs: Clear to auscultation bilaterally, no wheezing or rhonchi. Heart: Irregularly irregular rhythm, S1, S2 normal, no S3, no S4, no heaves, no rub and +VAISHNAVI. No peripheral edema . Grade 2/4 distal pulses bilaterally. Abdomen: Soft, nontender, bowel sounds normal, no bruits. Neuro: Oriented to person, place and time, alert, cooperative, gait coordinated. CARDIOVASCULAR MEDICINE TESTING: Last ECHO Result Conclusion ECHO Collected: 04/11/2023 2:39 PM (Final result) Impression: CONCLUSIONS: - Exam indication: Atrial fibrillation - The left ventricle is normal in size. There is mild concentric left ventricular hypertrophy. Left ventricular systolic function is normal. EF = 60 ? 5% (2D biplane) Definity contrast used for endocardial border detection. Indeterminate left ventricular diastolic dysfunction. - The right ventricle is normal in size. Right ventricular systolic function is normal. - There are no significant valvular abnormalities. - The visualized aorta is dilated with a maximal dimension of 4.5 cm. - Exam was compared with the prior echocardiographic exam performed on 01/09/2022, the degree of aortic and mitral insufficiency has decreased from previous study. * * * Final * * * Last EKG Result Conclusion ECG COMPLETE Collected: 04/04/2024 2:29 PM (Preliminary result) Impression: ATRIAL FIBRILLATION LEFT ANTERIOR FASCICULAR BLOCK MINIMAL VOLTAGE CRITERIA FOR LVH, MAY BE NORMAL VARIANT ( Jose Cruz product ) NONSPECIFIC ST ABNORMALITY ABNORMAL ECG EKG 04/04/2024: Atrial fibrillation with LAFB at 86 bpm I have personally reviewed the Electrocardiogram. PLAN AND RECOMMENDATIONS: Paroxysmal atrial fibrillation - Initial dx 2016 - Recurrent hospitalization 12/2021 for AF/RVR, started on Sotalol and underwent DCC on 01/11/22 with a long post-conversion pause noted at the time; sotalol was ultimately discontinued - Started Tikosyn 125 mcg on 02/08/22 - SLQ0EC2-FWCe score 2 (Age AND HTN) - Anticoagulated with Eliquis 5 mg BID - Rate controlled on metoprolol succinate 12.5 mg daily - Rhythm controlled on Tikosyn 125 mcg twice daily - Zio event monitor Dilated thoracic ascending aorta - Echo 04/11/23: Max dimension 4.5 cm at the mid ascending - Emphasis on aggressive BP control - Annual echocardiogram monitoring - Echocardiogram Essential hypertension - Optimal control on metoprolol succinate and losartan - Encouraged dietary sodium restriction/DASH diet - Reviewed risks of HTN and principles of treatment - Goal of BP <130/80 Obstructive sleep apnea - Compliant on CPAP CONCLUSION: Patient presents today for follow-up and appears to be doing well from a cardiovascular standpoint. He has no symptoms to suggest cardiac decompensation at this time. EKG in the office today demonstrated atrial fibrillation with LAFB at 86 bpm with stable QTc. He was unaware that he was in atrial fibrillation. He does not monitor heart rate or rhythm at home thus AF duration is unknown. EKG in December was NSR. At this time will place Zio event monitor for further AF burden assessment. Pending results may need to consider Tikosyn use moving forward. He has known dilated thoracic ascending aorta at 4.5 cm on most recent echocardiogram. He is due for repeat at this time. His heart rate and blood pressure remain under optimal control. I have made no additions or changes to his medications. He should continue to actively engage in cardiovascular risk factor modification and follow up with in 3 months for EKG if still on Tikosyn and 6 months with provider, or sooner should need arise/pending Zio results. CONTACT INFORMATION: Elayne Edwards APRN.[facility] Cardiology Nurse Practitioner Section of [facility] Cardiology [facility] Dept of Cardiovascular Medicine [facility] [place] [address] [address] Office Office This note was partially generated using [employer] recognition system and may contain errors related to that system including grammar, punctuation, spelling, and words that may be inappropriate PROCEDURE Observed: 04/04/2024 1:34 PM Status: COMPLETED Source: [facility] ID: [id number] Author: ASTON PILLAI DO Service: ? Author Type: Physician Type: Procedures Filed: 04/22/2024 09:07 Note Text: Patient Name: Anya Kamara : 1950 Ordering Provider: ELAYNE EDWARDS Indication: I48.0 Paroxysmal atrial fibrillation Type of Monitor: Extended Monitoring-Zio Patch Enrollment Dates: 04/04/2024-04/10/2024 IRHYTHM FINDINGS: Patient had a min HR of 38 bpm, max HR of 160 bpm, and avg HR of 63 bpm. Predominant underlying rhythm was Sinus Rhythm. First Degree AV Block was present. Bundle Branch Block/IVCD was present. 12 Supraventricular Tachycardia runs occurred, the run with the fastest interval lasting 5 beats with a max rate of 148 bpm, the longest lasting 18.4 secs with an avg rate of 100 bpm. Atrial Fibrillation occurred (9% burden), ranging from 49-160 bpm (avg of 94 bpm), the longest lasting 12 hours 32 mins with an avg rate of 94 bpm. Atrial Fibrillation was present at activation of device. Junctional Rhythm was present. Isolated SVEs were occasional (3.4%, 63795), SVE Couplets were rare (<1.0%, 123), and SVE Triplets were rare (<1.0%, 17). Isolated VEs were rare (<1.0%), VE Couplets were rare (<1.0%), and no VE Triplets were present. Conclusion: 1. Average heart rate 63 beats minute the minimum 38 beats minute, predominant sinus rhythm. There is a first-degree AV block and bundle branch block present. 2. There were 12 asymptomatic runs of SVT up to 18.4 seconds, up to 148 bpm. 3. Atrial fibrillation occurred 9% of the time with an average heart rate of 94 bpm. Heart rate ranged from 49 to 160 bpm with the longest time period of over 12 hours. 4. There were occasional PACs and rare PVCs present. 5. No symptoms were reported MALBR Collected: 03/24/2024 9:59 AM Status: F Source: [facility] [place] TYPE CODE TESTS RESULT OUT OF RANGE REFERENCE UNITS LAB CRU(LOINC) U Creatinine 123.6 39.0-259.0 mg/dL LAB MRUR(LOINC) U Microalb 491 mcg/dL LAB RMAL(LOINC) U Ratio Alb/Cre 4 0-30 mcg/ mg Performed By: #### MALBR ### # [address] [id number] CMP Collected: 03/24/2024 9:51 AM Status: F Source: [facility] [place] TYPE CODE TESTS RESULT OUT OF RANGE REFERENCE UNITS LAB GLU(LOINC) Glucose Level 115 High 83-110 mg/dL LAB NA(LOINC) Sodium Level 145 136-145 mmol/L LAB K(LOINC) Potassium Level 4.3 3.5-5.1 mmol/L LAB CL(LOINC) Chloride 106 98-107 mmol/L LAB CO2(LOINC) CO2 30 23-31 mmol/L LAB EBAL(LOINC) Electrolyte Balance 9.0 4.0-15.0 mEq/L LAB BUN(LOINC) BUN 17 7-18 mg/dL LAB CRE(LOINC) Creatinine Lvl (s) 1.36 High 0.70-1.30 mg/dL Result Comment: Testing perf ormed on Siemens Dimension EXL analyzer using a modified kinetic Chavez technique. LAB BC(LOINC) BUN/Creatinine Ratio 12 7-27 ratio LAB CA(LOINC) Calcium Lvl 9.0 8.4-10.2 mg/dL LAB PROT(LOINC) Total Protein 6.0 Low 6.4-8.2 G/dL LAB ALB(LOINC) Albumin Level 3.4 3.4-4.8 G/dL LAB GLB(LOINC) Globulin 2.6 G/dL LAB AG(LOINC) A/G Ratio 1.3 1.1-2.5 ratio LAB BILT(LOINC) Bili Total 0.4 0.2-1.0 mg/dL Result Comment: Use of this assay is not recommended for patients undergoing treatment with eltrombopag due to the potential for falsely elevated results. LAB AP(LOINC) Alk Phos 87 40-135 U/L LAB AST(LOINC) AST/SGOT 24 10-40 U/L LAB ALT(LOINC) ALT/SGPT 49 16-63 U/L Performed By: #### CMP, LIPI D, GFR #### [address] [address] .GFR Collected: 4 9:51 AM Status: F Source: [facility] [place] TYPE CODE TESTS RESULT OUT OF RANGE REFERENCE UNITS LAB GFRAA(LOINC) GFR 62 ml/min/1. 73sqm Result Comment: GFR Population mean for , Non- Americans Ages 20-29 = 116 mL/min/1.73 sq.m. Ages 30-39 = 107 mL/min/1.73 sq.m. Ages 40-49 = 99 mL/min/1.73 sq.m. Ages 50-59 = 93 mL/min/1.73 sq.m. Ages 60-69 = 85 mL/min/1.73 sq.m. Ages 70+ = 75 mL/min/1.73 sq.m. Chronic Kidney Disease: Less than 60 mL/min/1.73 square meters End Stage Renal Disease: Less than 15 mL/min/1.73 square meters LAB GFRNO(LOINC) GFR Non- 51 ml/min/1. 73sqm Result Comment: GFR Population mean for , Non- Americans Ages 20-29 = 116 mL/min/1.73 sq.m. Ages 30-39 = 107 mL/min/1.73 sq.m. Ages 40-49 = 99 mL/min/1.73 sq.m. Ages 50-59 = 93 mL/min/1.73 sq.m. Ages 60-69 = 85 mL/min/1.73 sq.m. Ages 70+ = 75 mL/min/1.73 sq.m. Chronic Kidney Disease: Less than 60 mL/min/1.73 square meters End Stage Renal Disease: Less than 15 mL/min/1.73 square meters Performed By: #### CMP, LIPI D, GFR #### [address] [place], [place] [address] LIPID Collected: 03/24/2024 9:51 AM Status: F Source: [facility] [place] TYPE CODE TESTS RESULT OUT OF RANGE REFERENCE UNITS LAB CHOL(LOINC) Cholesterol 189 0-200 mg/dL Result Comment: Cholesterol Reference Interval: Less than 200 Desirable 200-239 Borderline high risk 240 and above High risk LAB TRIG(LOINC) Triglycerides 59 0-150 mg/dL Result Comment: Triglyceride Reference Interval: Less than 150 Normal 150-199 Borderline high risk 200-499 High risk 500 or higher Very high risk LAB HD(LOINC) HDL Cholesterol 75 High 40-60 mg/dL LAB LDL(LOINC) LDL Cholesterol 102 0-130 mg/dL Performed By: #### CMP, LIPI D, GFR #### [address] [place], [place] [address] ED NOTE Observed: 03/19/2024 5:44 PM Status: COMPLETED Source: [facility] ID: [id number] Author: QING HAN RN Service: ? Author Type: Registered Nurse Type: ED Notes Filed: 03/20/2024 11:18 Note Text: Emergency Services: ED Call Back Questionnaire SERVICE DATE: 03/19/2024 Are you feeling better? Yes Any questions about discharge instructions and follow-up care? No Were you able to make a follow up appointment? No, referred to appointment hotline Do you have any further questions? No Is there anything that we could have done differently to improve your ED visit? No SIGNATURE: Qing Han RN PATIENT NAME: Anya Kamara DATE: March 20, 2024 TIME: 11:18 AM ED PROV NOTE Observed: 03/19/2024 5:44 PM Status: COMPLETED Source: [facility] ID: [id number] Author: JORDYN GILL MD Service: ? Author Type: Physician Type: ED Provider Notes Filed: 03/20/2024 05:18 Note Text: ED Provider Note Patient Name: Anya Kamara : 1950 SERVICE DATE: 03/19/24 History Patient presents with: Fall Presents after mechanical fall. He was walking in the garage and got his feet tripped up in a hose that was laying on the ground. He hit his head and landed onto his left hand and right knee. He is having mild low back pain since the fall and hip pain. Since falling his fingers become more swollen and limited range of motion. He had significant onset of headache after fall and this persist now. No loss of consciousness. No nausea or vomiting. No neurologic complaints. PAST MEDICAL HISTORY Diagnosis Date A-fib (HCC) [...] HX VASECTOMY UNI/BI SPX W/POSTOP SEMEN EXAMS FAMILY HISTORY Problem Relation Age of Onset Diabetes Father Prostate Cancer Brother Social History Tobacco Use Smoking status: Never Smokeless tobacco: Never Vaping Use Vaping status: Never Used Substance and Sexual Activity Alcohol use: Not Currently Alcohol/week: 25.0 standard drinks of alcohol Types: 15 Standard drinks or equivalent, 10 Glasses of Wine (5oz) per week Drug use: No Sexual activity: Not on file ALLERGIES Allergen Reactions Percocet [Oxycodone* Itching Pt took 2 doses close together (per patient) Review of Systems Constitutional: Negative. HENT: Negative. Eyes: Negative. Respiratory: Negative. Cardiovascular: Negative. Gastrointestinal: Negative. Endocrine: Negative. Genitourinary: Negative. Musculoskeletal: Negative. Skin: Negative. Allergic/Immunologic: Negative. Neurological: Negative. Hematological: Negative. Psychiatric/Behavioral: Negative. Physical Exam Vitals [03/19/24 1324] BP Pulse Temp Temp src Resp SpO2 Weight Height 143/86 56 36.1 ?C (97 ?F) Temporal 20 97 % 113.4 kg (250 lb) -- Physical Exam Vitals and nursing note reviewed. Constitutional: Appearance: He is well-developed. HENT: Head: Atraumatic. Eyes: Extraocular Movements: Extraocular movements intact. Conjunctiva/sclera: Conjunctivae normal. Cardiovascular: Rate and Rhythm: Regular rhythm. Heart sounds: Normal heart sounds. Pulmonary: Effort: Pulmonary effort is normal. Breath sounds: Normal breath sounds. Abdominal: General: Bowel sounds are normal. There is no distension. Palpations: Abdomen is soft. Tenderness: There is no abdominal tenderness. There is no guarding or rebound. Musculoskeletal: General: Normal range of motion. Cervical back: Normal range of motion and neck supple. Skin: General: Skin is warm and dry. Neurological: General: No focal deficit present. Mental Status: He is alert and oriented to person, place, and time. Diagnostic Testing ED Labs Ordered and Reviewed - No data to display LAC REPAIR Date/Time: 03/20/2024 5:16 AM Performed by: Jordyn Gill MD Authorized by: Jordyn Gill MD Risks discussed: Infection, need for additional repair, nerve damage, poor wound healing, poor cosmetic result, pain, retained foreign body, tendon damage and vascular damage Alternatives discussed: Delayed treatment, observation, referral and no treatment Anesthesia (see MAR for exact dosages): Anesthesia method: Local infiltration Local anesthetic: Lidocaine 1% WITH epi Laceration details: Location: Face Face location: Forehead Length (cm): 1.5 Depth (mm): 2 Repair type: Repair type: Simple Pre-procedure details: Preparation: Imaging obtained to evaluate for foreign bodies Exploration: Hemostasis achieved with: Direct pressure Wound exploration: wound explored through full range of motion Wound extent: areolar tissue violated and fascia violated Contaminated: no Treatment: Area cleansed with: Saline Amount of cleaning: Standard Irrigation solution: Sterile saline Irrigation volume: 250 Irrigation method: Pressure wash and syringe Visualized foreign bodies/material removed: no Skin repair: Repair method: Sutures Suture size: 4-0 Suture material: Nylon Suture technique: Simple interrupted Number of sutures: 3 Approximation: Approximation: Close Post-procedure details: Dressing: Open (no dressing) Patient tolerance of procedure: Tolerated well, no immediate complications ED Course / Clinical Impression Clinical Impressions as of 03/20/24 0518 Facial laceration, initial encounter Injury of head, initial encounter Fall, initial encounter Chronic anticoagulation MDM / Disposition / Plan Mechanical fall. Imaging obtained negative. Lack repair. Patient is counseled about symptoms for which to return to the emergency room. All questions answered. Discharged home in stable condition. 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: [facility] Transcribe Date/Time: Mar 19 2024 3:20P Dictated by : FRANCISCO J AG MD This examination was interpreted and the report reviewed and electronically signed by: FRANCISCO J AG MD on Mar 19 2024 3:21PM EST XR HIP GENERAL 3V PELV/AP/LAT RIGHT Final Result IMPRESSION: Unremarkable exam right hip Hypertrophic changes L5-S1 level right side 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: [facility] Transcribe Date/Time: Mar 19 2024 3:15P Dictated by : FRANCISCO J AG MD This examination was interpreted and the report reviewed and electronically signed by: FRANCISCO J AG MD on Mar 19 2024 3:19PM EST XR KNEE LIMITED 2V AP/LAT RIGHT Final Result 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: [facility] Transcribe Date/Time: Mar 19 2024 3:10P Dictated by : FRANCISCO J AG MD This examination was interpreted and the report reviewed and electronically signed by: FRANCISCO J AG MD on Mar 19 2024 3:15PM EST CT CERVICAL SPINE WO IVCON Final Result IMPRESSION: No CT evidence of acute traumatic injury to the cervical or thoracic spine. No fracture or traumatic subluxation Coronary artery calcifications. 4.7 cm enlargement ascending aorta. Cardiomegaly 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: [facility] Transcribe Date/Time: Mar 19 2024 2:42P Dictated by : FRANCISCO J AG MD This examination was interpreted and the report reviewed and electronically signed by: FRANCISCO J AG MD on Mar 19 2024 2:49PM EST CT THORACIC SPINE WO IVCON Final Result IMPRESSION: No CT evidence of acute traumatic injury to the cervical or thoracic spine. No fracture or traumatic subluxation Coronary artery calcifications. 4.7 cm enlargement ascending aorta. Cardiomegaly 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: [employer] Transcribe Date/Time: Mar 19 2024 2:42P Dictated by : FRANCISCO J AG MD This examination was interpreted and the report reviewed and electronically signed by: FRANCISCO J AG MD on Mar 19 2024 2:49PM EST CT BRAIN WO IVCON Final Result IMPRESSION: No CT evidence of acute traumatic brain injury/hemorrhage 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: [facility] Transcribe Date/Time: Mar 19 2024 2:40P Dictated by : FRANCISCO J AG MD This examination was interpreted and the report reviewed and electronically signed by: FRANCISCO J AG MD on Mar 19 2024 2:42PM EST Meds Given During Visit ED Medication Administration from 03/19/2024 1323 to 03/19/2024 1744 Date/Time Order Dose Route Action 03/19/2024 1415 EST tetanus diphtheria pertussis Tdap vaccine (PF) 0.5 mL injection (ADACEL) 0.5 mL INTRAMUSCULAR Given 03/19/2024 1415 EST acetaminophen 1,000 mg tab(s) (TYLENOL) 1,000 mg ORAL Given 03/19/2024 1511 EST fentaNYL 50 mcg/mL 50 mcg injection (SUBLIMAZE) 50 mcg INTRAVENOUS Given 03/19/2024 1511 EST ondansetron (PF) 4 mg injection (ZOFRAN) 4 mg INTRAVENOUS Given 03/19/2024 1509 EST NaCl 0.9% 500 mL iv bolus 500 mL INTRAVENOUS New Bag/Syringe/Bottle 03/19/2024 1539 EST NaCl 0.9% 500 mL iv bolus 0 mL INTRAVENOUS Infusion Complete 03/19/2024 1712 EST lidocaine 1%-EPINEPHrine 1:100,000 10 mL injection 10 mL INTRADERMAL Given Re-evaluation clinically improved and feeling better, vital signs in acceptable range and patient ambulatory with stable gait Jordyn Gill MD Disposition The patient was discharged. Counseled patient and family regarding radiology results, lab results and suspected diagnosis. SIGNATURE: Jordyn Gill MD - JORDYN GILL 03/20/24 0518 ED NOTE Observed: 03/19/2024 5:43 PM Status: COMPLETED Source: [facility] HNO ID: [id number] Author: DAYO SOW RN Service: ? Author Type: Registered Nurse Type: ED Notes Filed: 03/19/2024 17:43 Note Text: D/c instructions reviewed with pt who verbalized understanding. Pt's vss and left ED ual and in stable condition with son. XR DIGIT 3V FRONTAL/LAT/OBL LT Observed: 03/19/2024 3:07 PM Status: F Source: [facility] * * *Final Report* * * DATE OF EXAM: Mar 19 2024 3:07PM LDX 5318 - XR DIGIT 3V FRONTAL/LAT/OBL LT / PROCEDURE REASON: Hand trauma, no prior imaging * * * * Physician Interpretation * * * * XR DIGIT 3V FRONTAL/LAT/OBL LT HISTORY: 73 years old Clinical information: Hand trauma, no prior imaging Fall today in the garage, c/o left index finger TECHNIQUE: Images: XR DIGIT 3V FRONTAL/LAT/OBL LT Comparison: 01/15/2006 RESULT: Findings: No fractures or dislocations are seen. 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 states chronic right knee pain TECHNIQUE: Images: XR KNEE 2V AP/LAT RT Comparison: None. RESULT: No abnormal joint effusion No fractures or dislocations are seen. 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: [employer] Transcribe Date/Time: Mar 19 2024 3:10P Dictated by : FRANCISCO J AG MD This examination was interpreted and the report reviewed and electronically signed by: FRANCISCO J AG MD on Mar 19 2024 3:15PM EST [id number] XR SHLDR >/=3V AP/ELÍAS AP/OTH R LT Observed: 03/19/2024 3:07 PM Status: F Source: [facility] * * *Final Report* * * DATE OF EXAM: Mar 19 2024 3:07PM LDX 5252 - XR SHLDR >/=3V AP/ELÍAS AP/OTHR LT / PROCEDURE REASON: Trauma * * * * Physician Interpretation * * * * XR SHLDR >/=3V AP/ELÍAS AP/OTHR LT HISTORY: 73 years old Clinical information: Trauma Left shoulder pain. TECHNIQUE: Images: XR SHLDR >/=3V AP/ELÍAS AP/OTHR LT Comparison: 01/15/2006. RESULT/ impression: No acute fracture or dislocation. Status post internal fixation transfixing an old proximal left humerus fracture. 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: [email or web address] Transcribe Date/Time: Mar 19 2024 3:19P Dictated by : FRANCISCO J AG MD This examination was interpreted and the report reviewed and electronically signed by: FRANCISCO J AG MD on Mar 19 2024 3:20PM EST [id number] XR HIP 3V PELV+ AP/LAT RT Observed: 10/2023 3:07 PM Status: F Source: [facility] * * *Final Report* * * DATE OF EXAM: Mar 19 2024 3:07PM LDX 5352 - XR HIP 3V PELV+ AP/LAT RT / PROCEDURE REASON: Hip pain, acute, fx suspected, initial exam * * * * Physician Interpretation * * * * XR HIP 3V PELV+ AP/LAT RT HISTORY: 73 years old Clinical information: Hip pain, acute, fx suspected, initial exam c/o right hip pain TECHNIQUE: Images: XR HIP 3V PELV+ AP/LAT RT Comparison: None. RESULT: Hypertrophic changes L5-S1 level right side Hip joints are symmetrical as well as the pubic rami. Normal trabecular pattern without cortical interruption of the right hip. No fractures or dislocations are seen. IMPRESSION: Unremarkable exam right hip Hypertrophic changes L5-S1 level right side 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: [email or web address] Transcribe Date/Time: Nov 6 2024 3:15P Dictated by : FRANCISCO J AG MD This examination was interpreted and the report reviewed and electronically signed by: FRANCISCO J AG MD on Mar 19 2024 3:19PM EST [id number] ALLIED HEALTH Observed: 03/19/2024 2:36 PM Status: COMPLETED Source: [facility] HNO ID: [id number] Author: KELSY MORRIS RT(R) Service: Radiology Author Type: Sign Erector And Repairer Type: Allied Health Filed: 03/19/2024 14:37 Note Text: Radiology Service Progress Note PATIENT NAME: Anya Kamara DATE OF SERVICE: March 19, 2024 TIME: 2:37 PM PATIENT IDENTITY VERIFICATION COMPLETED USING TWO (2) IDENTIFIERS: Name and Date of confirmed by patient verbally and Name and Date of confirmed by identification band. FALL SCREENING: Has the patient had 2 falls in the last year or 1 fall with injury or currently using an Ambulatory Assistive Device (Walker, Cane, Wheelchair, Crutches, etc.)? No PATIENT GENDER DATA: Male PATIENT RELEVANT IMPLANT DATA REVIEWED: Not Applicable PATIENT PRESENTS WITH AN IMPLANTABLE OR ATTACHED TRANSACTIONAL PARALEGAL: No RADIOLOGY DEPARTMENT: CT; Exam(s) Completed: Brain and CSP, TSP PERIPHERAL IV DATA: Not applicable SIGNED BY: RT [place](R) March 19, 2024 2:[address] CERVICAL SPINE WO IVCON Observed: 10/2023 2:32 PM Status: F Source: [facility] * * *Final Report* * * DATE OF EXAM: Mar 19 2024 2:32PM [facility] 0505 - CT CERVICAL SPINE WO IVCON / PROCEDURE REASON: Spine fracture, cervical, traumatic * * * * Physician Interpretation * * * * EXAMINATION: CT CERVICAL SPINE WO IVCON, CT THORACIC SPINE WO IVCON CLINICAL HISTORY: Spine fracture, cervical, traumatic, pain TECHNIQUE: Spiral, high resolution axial unenhanced images were obtained from the skull base to the thoracolumbar junction with sagittal and coronal planar reconstructions. MQ: CTCTWO_3 CT Radiation dose: Integrated Dose-Length Product (DLP) for this visit = 1146.12 Brain/Cervical (accession [id number]), 1457.91 (accession [id number]) mGy*cm. CT Dose Reduction Employed: No dose reduction techniques were required COMPARISON: None. RESULT: CERVICAL: Counting reference: Craniocervical junction. Anatomic Variants: None. On Site Property Manager (topogram) images: Chronic mucosal changes in the mastoid air cells. Alignment: Alignment is anatomic. Craniocervical junction: Craniocervical junction is normal. Bone marrow / fracture: No evidence of a lytic or blastic process in the visualized spine. No evidence of acute or chronic fracture. Multilevel degenerative disc/endplate degenerative changes most prominent C4-T1 levels. Cervical soft tissues: The paraspinal soft tissues planes are maintained. Mild degree multilevel degenerative foraminal stenosis due to hypertrophy. THORACIC: Counting reference: Craniocervical junction On Site Property Manager (topogram) images: Coronary artery calcifications. 4.7 cm enlargement ascending aorta. Cardiomegaly Alignment: Alignment is anatomic. Bone marrow / fracture: No evidence of a lytic or blastic process in the visualized spine. No evidence of acute or chronic fracture. Thoracic soft tissues: The paraspinal soft tissues planes are maintained. Canal and foramina: The bony thoracic canal and foramina are patent. IMPRESSION: No CT evidence of acute traumatic injury to the cervical or thoracic spine. No fracture or traumatic subluxation Coronary artery calcifications. 4.7 cm enlargement ascending aorta. Cardiomegaly 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 Transcribe Date/Time: Mar 19 2024 2:42P Dictated by : FRANCISCO J AG MD This examination was interpreted and the report reviewed and electronically signed by: FRANCISCO J AG MD on Mar 19 2024 2:49PM EST [id number] CT THORACIC SPINE WO IVCON Observed: 10/2023 2:32 PM Status: F Source: [facility] * * *Final Report* * * DATE OF EXAM: Mar 19 2024 2:32PM [facility] 0514 - CT THORACIC SPINE WO IVCON / PROCEDURE REASON: Spine fracture, thoracic, traumatic * * * * Physician Interpretation * * * * EXAMINATION: CT CERVICAL SPINE WO IVCON, CT THORACIC SPINE WO IVCON CLINICAL HISTORY: Spine fracture, cervical, traumatic, pain TECHNIQUE: Spiral, high resolution axial unenhanced images were obtained from the skull base to the thoracolumbar junction with sagittal and coronal planar reconstructions. MQ: CTCTWO_3 CT Radiation dose: Integrated Dose-Length Product (DLP) for this visit = 1146.12 Brain/Cervical (accession [id number]), 1457.91 (accession [id number]) mGy*cm. CT Dose Reduction Employed: No dose reduction techniques were required COMPARISON: None. RESULT: CERVICAL: Counting reference: Craniocervical junction. Anatomic Variants: None. On Site Property Manager (topogram) images: Chronic mucosal changes in the mastoid air cells. Alignment: Alignment is anatomic. Craniocervical junction: Craniocervical junction is normal. Bone marrow / fracture: No evidence of a lytic or blastic process in the visualized spine. No evidence of acute or chronic fracture. Multilevel degenerative disc/endplate degenerative changes most prominent C4-T1 levels. Cervical soft tissues: The paraspinal soft tissues planes are maintained. Mild degree multilevel degenerative foraminal stenosis due to hypertrophy. THORACIC: Counting reference: Craniocervical junction On Site Property Manager (topogram) images: Coronary artery calcifications. 4.7 cm enlargement ascending aorta. Cardiomegaly Alignment: Alignment is anatomic. Bone marrow / fracture: No evidence of a lytic or blastic process in the visualized spine. No evidence of acute or chronic fracture. Thoracic soft tissues: The paraspinal soft tissues planes are maintained. Canal and foramina: The bony thoracic canal and foramina are patent. IMPRESSION: No CT evidence of acute traumatic injury to the cervical or thoracic spine. No fracture or traumatic subluxation Coronary artery calcifications. 4.7 cm enlargement ascending aorta. Cardiomegaly 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: [facility] Transcribe Date/Time: Mar 19 2024 2:42P Dictated by : FRANCISCO J AG MD This examination was interpreted and the report reviewed and electronically signed by: FRANCISCO J AG MD on Mar 19 2024 2:49PM EST [id number] CT BRAIN WO IVCON Observed: 03/19/2024 2:25 PM Status: F Source: [facility] * * *Final Report* * * DATE OF EXAM: Mar 19 2024 2:25PM [facility] 0504 - CT BRAIN WO IVCON / PROCEDURE REASON: Head trauma, moderate-severe * * * * Physician Interpretation * * * * EXAMINATION: CT BRAIN WO IVCON CLINICAL HISTORY: Head trauma, pain TECHNIQUE: Serial axial images without IV contrast were obtained from the vertex to the foramen magnum. MQ: CTBWO_3 CT Radiation dose: Integrated Dose-Length Product (DLP) for this visit = 1146.12 Brain/Cervical mGy*cm CT Dose Reduction Employed: No dose reduction techniques were required COMPARISON: 09/14/[address] RESULT: Localizer images: Post-operative change: None. Acute change: No evidence of an acute infarct or other acute parenchymal process. Hemorrhage: No evidence of acute intracranial hemorrhage. ECASS hemorrhagic transformation score: Not Applicable Mass Lesion / Mass Effect: There is no evidence of an intracranial mass or extraaxial fluid collection. No significant mass effect. Chronic change: None apparent. Parenchyma: There is no significant volume loss. The brain parenchyma is otherwise within normal limits for age. Ventricles: The ventricles are within normal limits of size and configuration for age. Paranasal sinuses and skull base: The visualized paranasal sinuses are grossly clear. The skull base and imaged soft tissues are unremarkable. IMPRESSION: No CT evidence of acute traumatic brain injury/hemorrhage 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: [facility] Transcribe Date/Time: Mar 19 2024 2:40P Dictated by : FRANCISCO J AG MD This examination was interpreted and the report reviewed and electronically signed by: FRANCISCO J AG MD on Mar 19 2024 2:42PM EST [id number] ED NOTE Observed: 03/19/2024 1:29 PM Status: COMPLETED Source: [facility] HNO ID: [id number] Author: DAYO SOW RN Service: ? Author Type: Registered Nurse Type: ED Notes Filed: 03/19/2024 13:36 Note Text: Pt comes to ED after tripping over the water hose in his garage. Pt fell and hit his head. Pt has laceration to L forehead that has small amount of blood. Pt denies LOC and is AANDOx3. Pt has L shoulder pain, L index finger pain and R knee pain. Pt has had previous surgery on L shoulder so baseline has limited ROM. Has full ROM to fingers. Has full ROM to R knee. Pt denies numbness and tingling at this time. He is AANDOx3, vss. Will continue to monitor. ALLERGIES DATE TYPE / CODE NAME / CODE REACTION SEVERITY SOURCE 09/15/2016 DRUG/[id number](SNO MED CT) OXYCODONE-ACETAMIN OPHEN ITCHING [facility] ENCOUNTERS ADMIT/DISCHARGE ACCOUNT NUMBER ADMITTING ENCOUNTER CLASS LOCATION SOURCE 12/29/2024 [id number] [facility] 12/23/2024/12/27/19 [id number] ROB BALLESTEROS Inpatient Encounter [facility]:[id number] m: [id number]: [id number] [facility] 11/20/2024/11/21/19 [id number] [facility] 11/07/2024/11/08/19 25 [id number] DIO ANAYA [id number] m: [id number]: [id number] [facility] 11/07/2024/11/08/19 25 [id number] [facility] 10/31/2024/11/01/19 25 [id number] [facility]ulatory [facility] 10/20/2024/10/21/19 25 [id number] Ambulatory [facility] 10/17/2024/10/22/19 25 [id number] Ambulatory [facility] 08/22/2024 [id number] [facility] 08/18/2024/08/19/19 25 [id number] [facility] 07/07/2024/07/07/19 25 [id number] Amb[facility] 07/07/2024/07/07/19 25 [id number] Amb[facility] 05/05/2024/05/05/20 24 [id number] [facility] 04/04/2024/04/04/20 24 [id number] Ambulatory [facility] 03/24/2024/03/24/20 24 [id number] Amb[facility] 03/19/2024/03/19/20 24 [id number] [facility]: EDBed: 03 [facility] PAYERS ENCOUNTER GUARANTOR PAYER SUBSCRIBER SOURCE 12/29/2024 Primary Insurance:[employer]HC AARP MEDICARE HMOPolicy Number: [id number] Date:4332-52-88Emqw Name:Denzel DE LEON: [id number] [address] 12/23/2024 Primary Insurance:[employer]HC AARP MEDICARE HMOPolicy Number: [id number] Date:9433-34-42Xqyp Name:Denzel DE LEON: [id number] [address] 11/20/2024 Primary Insurance:[employer]HC AARP MEDICARE HMOPolicy Number: [id number] Date:0063-34-67Mjns Name:Denzel DE LEON: [id number] [address] 11/07/2024 Primary Insurance:[employer]HC AARP MEDICARE HMOPolicy Number: [id number] Date:1817-92-98Vyiv Name:Denzel SONIB: [id number] [address] 11/07/2024 Primary Insurance:[employer]HC AARP MEDICARE HMOPolicy Number: [id number] Date:9452-42-70Ibnc Name:Denzel DE LEON: [id number] [address] 10/31/2024 Primary Insurance:[employer]HC AARP MEDICARE HMOPolicy Number: [id number] Date:7749-38-43Ivbm Name:Denzel KAMARADOB: [id number] [facility] [place] [address] [facility] 10/20/2024 Primary Insurance:[employer]HC AARP MEDICARE HMOPolicy Number: [id number] Date:1112-02-05Kudf Name:Denzel KAMARADOB: [id number] [facility] [place] [address] [facility] 10/17/2024 ANYA KAMARADOB: [id number] [facility] [place] [address]~NONETel : (HP) Primary Insurance:AARP MEDICARE COMPLETE INSCOPolicy Number: [id number] Date:6888-45-00Yveh Name:SANDY ADRIÁN [address] [place], [place] [address]YO: ANYA KAMARADOB: [id number] [facility] [address]Igv: (HP) () [facility] 08/22/2024 Primary Insurance:UHC AARP MEDICARE HMOPolicy Number: [id number] Date:5857-21-33Aomh Name:Denzel KAMARADOB: [id number] [facility] [place] [address] [facility] 08/18/2024 Primary Insurance:UHC AARP MEDICARE HMOPolicy Number: [id number] Date:1222-95-78Kphv Name:Denzel KAMARADOB: [id number] [facility] [place] [address] [facility] 07/07/2024 Primary Insurance:UHC AARP MEDICARE HMOPolicy Number: [id number] Date:7681-96-70Bphy Name:Denzel KAMARADOB: [id number] [facility] [place] [address] [facility] 07/07/2024 Primary Insurance:[employer]HC AARP MEDICARE HMOPolicy Number: [id number] Date:5534-55-24Bwns Name:Denzel KAMARADOB: [id number] [place] [address] [facility] 05/05/2024 Primary Insurance:UHC AARP MEDICARE HMOPolicy Number: [id number] Date:2145-66-48Enzy Name:Denzel KAMARADOB: [id number] [facility] [place] [address] [facility] 04/04/2024 Primary Insurance:UHC AARP MEDICARE HMOPolicy Number: [id number] Date:8161-88-95Xwky Name:Denzel SONIB: [id number] [place] [address] [facility] 03/24/2024 ANYA KAMARADOB: [id number] [place] [address]NONETel : (HP) [facility] Number: [id number] Date:8348-63-24Pkmb Name:[facility] [place] [address] [place], [place] [address]IZ: NAYA SONIB: [id number] [place] [address]Pqc: (HP) (WP) [facility] 03/19/2024 Primary Insurance:UHC AARP MEDICARE HMOPolicy Number: [id number] Date:8206-18-35Bmzj Name:Denzel KAMARADOB: [id number] [place] [address] [facility]
--- NOTE | 2025-02-10 13:44 | ECHOLONC_ITS ---
Reason For Study Reason For Study: Chemotherapy Procedure This was a limited 2D transthoracic echocardiogram. Myocardial strain analysis was performed in this exam to aid in the assessment of cardiac function. Exam performed in department. Left Ventricle Normal LV size. Mild concentric left ventricular hypertrophy. The global longitudinal strain = -15.7% (abnormal). The left ventricular ejection fraction is 60 %. No regional wall motion abnormalities noted. Right Ventricle Normal RV size. Normal systolic function. Tricuspid Valve Normal tricuspid valve. Mild (1+) tricuspid valve insufficiency. Pulmonary artery systolic pressure is 29 mmHg. Aortic Valve Trisinus/trileaflet aortic valve. Mild (1+) aortic valve insufficiency. Pulmonic Valve Normal pulmonic valve. Great Vessels Normal aortic root. The pulmonary artery is normal size. Normal inferior vena cava. Pericardium/Pleural No pericardial effusion. MMode/2D Measurements & Calculations LVIDd: 5.7 cm IVSd: 1.3 cm LVAd ap4: 25.9 cm2 LVIDs: 4.0 cm LVPWd: 1.2 cm LVLd ap4: 7.0 cm FS: 30.0 % EDV(MOD-sp4): 84.3 ml EDV(sp4-el): 81.2 ml LVAs ap4: 15.3 cm2 LVLs ap4: 6.3 cm ESV(MOD-sp4): 33.2 ml ESV(sp4-el): 31.5 ml EF(MOD-sp4): 60.7 % EF(sp4-el): 61.3 % SV(MOD-sp4): 51.1 ml SV(sp4-el): 49.8 ml SI(MOD-sp4): 22.4 ml/m2 Doppler Measurements & Calculations AI max chino: 462.0 cm/sec TR max chino: 254.0 cm/sec AI max P.4 mmHg TR max P.8 mmHg AI dec slope: 221.6 cm/sec2 AI P1/2t: 610.5 msec ECHO/ONC Echo, Limited Study Interpretation Summary Normal LV size. The global longitudinal strain = -15.7% (abnormal). The left ventricular ejection fraction is 60 %. Mild (1+) tricuspid valve insufficiency. Ordering Physician: Trena Esteban Referring Physician: Trena Esteban Performed By: Justo ePrez, [facility]
== END | disposition home or self-care (01) ==
LOC: CVS 13:43
PROVIDERS: Referring Provider Internal Medicine Hematology & Oncology; Visit Provider Internal Medicine Hematology & Oncology
DX: C49.9 Malignant neoplasm of connective and soft tissue, unspecified (principal); I36.1 Nonrheumatic tricuspid (valve) insufficiency
CPT/HCPCS: 93308; 93356

== ENCOUNTER 2025-03-05 16:28 | Inpatient (IN) | payer MEDICARE, SELFPAY ==
[2025-03-05] VITALS (19 sets, daily range): BP systolic 112–145; BP diastolic 61–79; PULSE 54–83; RESP 16–25; TEMP 36.5–37.9; O2SAT 87–98; BMI 33.1; BMI 31.8
--- NOTE | 2025-03-05 16:45 | EX.ED.DYSGE1 ---
HPI History of Present Illness Chief Complaint: Cough Detail of Chief Complaint: Fatigue, weight loss, productive cough and dyspnea Informant: patient and family Onset/Context/Timing Onset: Month(s) (Cough for 6 months) Context: Sudden Onset Timing: Continuous Quality: Productive cough of whitish to pleitez-colored sputum Location: Pulmonary Current Severity: Mild Maximum Severity: Moderate Worsened by: Activity Relieved by: nothing Associated Symptoms Associated Symptoms: HPI narrative Narrative Narrative: Patient is not a good informant neither is his family. Reviewed oncology note that was authored by Dorota Weller. Patient has a history of prostate cancer diagnosed in 1999. His initial treatment was in [place]. He he was treated with radiation at that time. He later had cryoablation. Over the past several years he has been undergone androgen deprivation therapy orchestrated by Dr. Momin. Last visit was July 24, 2024. Patient had an abdominal ultrasound November 25 which revealed multiple heterogeneous lesions with the appearance of diffuse metastatic disease with the largest lesion noted in the left hepatic lobe measuring 8 cm in size. Patient had a CT of the abdomen pelvis December 18, 2024. He had extensive lung metastasis, extensive liver metastasis and partially thrombosed portal confluence. January 06, 2025 patient had a ultrasound-guided liver biopsy. 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 Patient presents because of fatigue, weight loss, he was unaware that he had a fever. He has a productive cough for the past 5 to 6 months. Son states he has severe COPD. He also endorses rhinorrhea, congestion postnasal drainage. This has been going on for some time as well. He was being treated for sinus allergies by his PCP for the past 5-6 according to daughter. Suspect patient is on apixaban due to the question of a thrombus in the portal system. He is uncertain. 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 Murmur, heart IBS (irritable bowel syndrome) High blood pressure Cancer Atrial fibrillation Home Medications ?Medication ?Instructions ?Recorded ?Last Taken ?Type finasteride 5 mg tablet 5 mg PO DAILY 07/26/19 01/13/25 History lorazepam 0.5 mg tablet 0.5 mg PO DAILY PRN PRN Anxiety 07/26/19 Unknown History tamsulosin 0.4 mg capsule 0.4 mg PO QHS 07/26/19 01/13/25 History fluticasone furoate 100 1 inh inhalation QHS 11/17/24 Unknown History mcg-vilanterol 25 mcg/dose inhalation powder (Breo Ellipta) albuterol sulfate 90 mcg/actuation 1 - 2 puff inhalation Q4H PRN 01/09/25 Unknown History aerosol inhaler wheezing thiamine HCl (vitamin B1) 100 mg 100 mg PO QDAY 01/26/25 Unknown History tablet vitamin B complex 1 cap PO QDAY 01/26/25 Unknown History benzonatate 100 mg capsule 200 mg PO TID PRN PRN cough 02/27/25 Unknown History esomeprazole magnesium 40 mg 40 mg PO BID 02/27/25 Unknown History capsule,delayed release famotidine 40 mg tablet 40 mg PO QHS 02/27/25 Unknown History losartan 25 mg tablet 25 mg PO DAILY 02/27/25 Unknown History pazopanib 200 mg tablet 400 mg PO DAILY 02/27/25 Unknown History Allergy/AdvReac Type Severity Reaction Status Date / Time No Known Allergies Allergy Verified 03/05/25 16:29 Family History Father Alcoholism Brother Cancer Prostate Aunt Cancer Grandmother Dementia Surgical History History of cardiac catheterization History of cardiac ablation for atrial fibrillation History of tonsillectomy and adenoidectomy History of repair of hiatal hernia History of esophagogastroduodenoscopy (EGD) Hx of colonoscopy History of surgery on arm Hx of vasectomy History of appendectomy Social History Smoking Status: Never smoker alcohol intake: current alcohol intake frequency: holidays/special occasions only Alcohol type: wine substance use type: does not use ROS ROS ED Constitutional Constitutional ED: Reports weight loss; Denies chills, fever(s), subjective or sweats Eyes Eyes: Denies blurry vision or change in vision ENT ENT ED: Reports rhinorrhea and sore throat; Denies ear pain Cardiovascular Cardiovascular: Denies chest pain, orthopnea, palpitations, paroxysmal nocturnal dyspnea or racing heartbeat Respiratory/Chest Respiratory/Chest: Reports cough, dyspnea, dyspnea on exertion and sputum; Denies orthopnea or paroxysmal nocturnal dyspnea Gastrointestinal Gastrointestinal: Denies abdominal pain, constipation, nausea or vomiting Genitourinary Genitourinary ED: Denies dysuria, hematuria or urinary frequency Musculoskeletal Musculoskeletal: Denies arthralgias, back pain or myalgias Integumentary Denies rash Neurologic Neurologic: Reports weakness; Denies paresthesias Endocrine Endocrinology: Denies cold intolerance or heat intolerance Hematologic/Lymphatic Hematologic/Lymphatic: Reports systems reviewed and no addt'l complaints, except as documented EXAM Physical Exam Const Vital Signs: 03/05/25 16:29 03/05/25 16:32 03/05/25 17:05 Temperature 100.2 F H 100.2 F H Temperature Source Oral Oral Pulse Rate 82 82 Respiratory Rate 20 H 20 H Respiratory Effort Short of Breath Respiratory Pattern Tachypnea Blood Pressure 144/76 H 144/76 H Blood Pressure Mean 98 98 Pulse Ox 96 96 Oxygen Delivery Method Room Air Room Air Room Air 03/05/25 17:08 03/05/25 17:08 03/05/25 17:29 Temperature Temperature Source Pulse Rate 71 83 Respiratory Rate 24 H 18 Respiratory Effort Respiratory Pattern Blood Pressure 145/79 H Blood Pressure Mean 101 Pulse Ox 97 93 Oxygen Delivery Method Room Air 03/05/25 17:32 03/05/25 18:00 03/05/25 18:07 Temperature 100.1 F H 99 F Temperature Source Oral Oral Pulse Rate 82 73 74 Respiratory Rate 24 H 25 H 21 H Respiratory Effort Respiratory Pattern Blood Pressure 136/79 H 126/69 H Blood Pressure Mean 98 88 Pulse Ox 95 98 Oxygen Delivery Method Room Air Room Air 03/05/25 19:00 03/05/25 19:33 03/05/25 19:35 Temperature 99 F Temperature Source Oral Pulse Rate 54 L Respiratory Rate 20 H Respiratory Effort Respiratory Pattern Blood Pressure 129/66 H Blood Pressure Mean 87 Pulse Ox 95 87 95 Oxygen Delivery Method Room Air Room Air Room Air 03/05/25 19:56 03/05/25 20:12 03/05/25 20:13 Temperature 98.7 F 98.7 F Temperature Source Oral Pulse Rate 81 77 77 Respiratory Rate 16 16 Respiratory Effort Respiratory Pattern Blood Pressure 112/70 115/62 Blood Pressure Mean 84 79 Pulse Ox 92 94 Oxygen Delivery Method Room Air Positive well nourished and well developed Constitutional Narrative: Patient is ill-appearing and pale. Blood pressure is elevated. He has a moist cough. General Appearance ED: well developed and pallor; Negative for cyanotic or diaphoretic HEENT Reports dry mucous membranes HEENT Narrative: Patient has poor dentition with periodontal disease and gingivitis. Posterior pharynx unremarkable. Ears are normal. Nares patent with clear discharge. Mouth ED: Yes dry mucous membranes Mouth: dry mucous membranes Eyes PERRL and EOMs intact bilaterally General Eye ED: Yes pale conjunctiva; Negative for scleral icterus Neck no lymphadenopathy, supple and no JVD Resp normal respiratory effort and No clear to auscultation bilaterally Auscultation: rales right lower, rhonchi left lower and right lower, wheezes lower bilaterally (With forced expiration.) and diminished lung sounds Cardio regular rate, regular rhythm, S1 normal heart sound, S2 normal heart sound and no murmurs GI normal to inspection, nondistended, normoactive bowel sounds, non-tender, non-distended and no masses; Negative for hepatosplenomegaly Back/Spine no CVA tenderness Extremity normal to inspection General Extremety ED: Negative for edema or tenderness General Extremity: Negative for edema Neuro oriented x3 and CN's II-XII intact bilaterally Sensorium / Orientation: alert Skin no rashes or lesions noted, no wounds and No skin turgor normal General Skin Exam: pallor; Negative for jaundice MDM MDM MDM Narrative Medical decision making narrative: Patient is a poor informant. Since he has an elevated temperature abnormal oscillatory findings on lung exam will obtain chest x-ray appropriate blood work to assess for obstructive pneumonia, versus exacerbation COPD. Doubt pulmonary embolus. Spoke to patient and family regarding CODE STATUS. Even though he was told he not to make arrangements greater than 5 months no one is talked about palliative care or hospice care or CODE STATUS. History & Record Review Additional record(s) reviewed:: Prior outpatient record and Prior labs Lab Data Attestation: I reviewed the patient's lab results. Lab results narrative: White count is elevated with a shift. There is mild anemia. Comprehensive metabolic panel is marked for glucose of 166 with a normal CO2 and anion gap. Lactate is elevated 2.7. Liver enzymes reveal elevated alkaline phosphatase of 380. Labs: Laboratory Results - last 24 hr 03/05/25 03/05/25 17:00 17:05 WBC 14.4 H RBC 4.30 L Hgb 12.6 L Hct 37.7 L MCV 87.7 MCH 29.3 MCHC 33.4 RDW Std Deviation 46.8 H RDW Coeff of Belkis 14.8 H Plt Count 321 MPV 9.1 Immature Gran % (Auto) 0.600 Neut % (Auto) 81.3 H Lymph % (Auto) 8.9 L Mcdowell % (Auto) 9.0 Eos % (Auto) 0.0 Baso % (Auto) 0.2 Absolute Neuts (auto) 11.7 H Absolute Lymphs (auto) 1.27 Nucleated RBC % 0 Sodium 136 Potassium 4.2 Chloride 101 Carbon Dioxide 21.7 Anion Gap 14 BUN 15 Creatinine 1.05 Est GFR (MDRD) Non-Af 74 BUN/Creatinine Ratio 14.5 Glucose 166 H Lactic Acid 2.7 H* Calcium 8.9 Total Bilirubin 1.13 AST 40 H ALT 31 Alkaline Phosphatase 380 H Total Protein 6.6 Albumin 3.4 Globulin 3.3 Albumin/Globulin Ratio 1.0 Radiography Chest X-Ray - ED: 2 View, Read by ED Physician, Normal, Heart, Mediastinum, Bony Structures, No Acute Disease, Chronic Changes and No Infiltrates (There is hyperaeration.) Diagnostic Testing: Clinical Impression(s) from Imaging Studies Chest X-Ray 03/05/25 17:25 IMPRESSION: NO ACUTE FINDINGS. Reading Location: [address] Management Discussion w/another healthcare provider: Hospitalist (Spoke with Dr. Geovany Ball. He would like patient placed in the ICU.) Treatment and Re-Evaluation :: Patient was reassessed at 1933. Patient's pulse ox at rest was 87% with a good waveform. Patient still has wheezing right greater than left. In light of his hypoxia fever history of cancer we will contact hospitalist for admission. Patient did receive prednisone department and multiple aerosol treatments. Will start on antibiotics as well. Critical Care Time Critical Care Time: Yes Critical care time (excluding procedures): 30-74 minutes (31), Including time spent: (History, physical, documentation, independent or potation laboratory results and x-ray, initiation of treatment, review of outside records), Discussing w/Patient &/or Family/Ship Loader (Discussion regarding DNR, advanced directives medical order for life-sustaining treatment), Discussing w/Consultants and Arranging Admission or Transfer Discharge Plan Dx/Rx/DC Orders Clinical Impression: Acute exacerbation of chronic obstructive pulmonary disease, Chronic bronchitis with acute exacerbation, Acute bronchospasm, Hypoxia, Metastatic sarcoma, Metastasis to lung, Metastasis to liver, High blood pressure, DNR (do not resuscitate) discussion Disposition Disposition: [facility]
[2025-03-05] MEDS: 0.9% Normal Saline (1000mL) 1,000 ML 1000 ML IV (16:55)
[2025-03-05] MEDS: Albuterol 2.5 MG/3 ML VIAL.NEB. INHALATION ×3 (16:55→18:05)
[2025-03-05 17:15] LABS: Hematocrit 37.7 % (40-54); Hemoglobin 12.6 g/dL (13.0-16.5); Immature Granulocytes Count 0.080 X10^3/uL (0.0-0.0); Mean Corp Hgb Conc 33.4 g/dL (32-36); Mean Corpuscular Volume 87.7 fL (80-94); Mean Platelet Vol. 9.1 fl (6.2-12.0); NRBC Flagged by Analyzer 0 % (0-5); Platelet Count 321 K/mm3 (150-450); RBC Distribution Width CV 14.8 % (11.6-14.6); RBC Distribution Width SD 46.8 fl (35.1-43.9); Red Blood Count 4.30 M/mm3 (4.6-6.2); White Blood Count 14.4 K/mm3 (4.4-11.0)
--- NOTE | 2025-03-05 17:25 | RAD_ITS ---
PROCEDURE: RAD/Chest PA and Lateral
[2025-03-05 17:42] LABS: AST(SGOT) 40 U/L (<=37); Alanine Aminotransfer ALT/SGPT 31 U/L (<=46); Albumin, Serum 3.4 g/dL (3.4-4.8); Alkaline Phosphatase 380 U/L (40-129); Anion Gap 14 (5-15); BUN 15 mg/dL (4-19); BUN/Creat Ratio 14.5 RATIO (10-20); Calcium,Total 8.9 mg/dL (7.6-11.0); Carbon Dioxide 21.7 mmol/L (21.0-32.0); Chloride 101 mmol/L (98-108); Globulin 3.3 g/dL (2.2-4.2); Glucose 166 mg/dL (70-99); Potassium 4.2 mmol/L (3.3-5.1)
[2025-03-05] MEDS: levoFLOXacin IV 750 MG/150 ML BAG 100 MG IV (20:08)
--- NOTE | 2025-03-05 20:12 | PCM.HP.STD ---
[facility] - General General Date of Admission: 03/05/25 Date of Service: 03/05/25 Chief Complaint: SOB, Wheezing and Productive Cough. HPI Narrative ANYA ST, is a 74 M with a past medical history of essential hypertension; on losartan, obesity (class I); with BMI of 33.1 this admission, history of tobacco abuse; with subsequent severe COPD and chronic cough, GERD; on esomeprazole BID plus famotidine nightly, history of radiation colitis, history of IBS, generalized anxiety; on lorazepam prn daily, BPH; on finasteride, history of metastatic prostate cancer (1999); s/p radiation, cryoablation and androgen deprivation therapy on pazopanib followed by Dr. Esteban of oncology and Dr. 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 Mr. St is not a good informant with his family also unable to provide much detail at this time so information was gathered from chart, medical staff and computer. According to the records his symptoms began a few days prior to admission with the gradual-onset of LOPEZ that progressed to SOB at rest with wheezing. He also admits to an increase in his chronic cough productive of whitish/grayish sputum with runny nose, sinus congestion, post nasal drip with fatigue, malaise and generalized weakness plus weight loss. He denies associated fever, chills, chest pain, palpitations, heart racing, abdominal pain, nausea, vomiting, diarrhea, constipation, dysuria, hematuria, headache or rash. In the ER he was noted to have Fever of 100.2 degrees Fahrenheit, Leukocytosis of 14.4K with Lactic Acidosis of 2.7 mmol/L both present on admission with a corresponding CXR that revealed no acute findings and he was then diagnosed with AE COPD with Acute Respiratory Insufficiency complicated by suspected Sepsis without clear source of infection at this time and he was then admitted to the ICU for ongoing care for a stay that is expected to extend beyond 2 midnights. [facility] Medical History History of Holter monitoring Encounter for education Metastatic sarcoma Wears hearing aid Wears partial dentures Wears glasses Alcohol use Back pain Radiation burn Gastric reflux Non-smoker Chronic cough Shortness of breath on exertion History of echocardiogram History of stress test Cardiology follow-up encounter Prostate cancer 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 Murmur, heart IBS (irritable bowel syndrome) High blood pressure Cancer Atrial fibrillation Home Medications ?Medication ?Instructions ?Recorded ?Last Taken ?Type finasteride 5 mg tablet 5 mg PO DAILY 07/26/19 01/13/25 History lorazepam 0.5 mg tablet 0.5 mg PO DAILY PRN PRN Anxiety 07/26/19 Unknown History tamsulosin 0.4 mg capsule 0.4 mg PO QHS 07/26/19 01/13/25 History fluticasone furoate 100 1 inh inhalation QHS 11/17/24 Unknown History mcg-vilanterol 25 mcg/dose inhalation powder (Breo Ellipta) albuterol sulfate 90 mcg/actuation 1 - 2 puff inhalation Q4H PRN 01/09/25 Unknown History aerosol inhaler wheezing thiamine HCl (vitamin B1) 100 mg 100 mg PO QDAY 01/26/25 Unknown History tablet vitamin B complex 1 cap PO QDAY 01/26/25 Unknown History benzonatate 100 mg capsule 200 mg PO TID PRN PRN cough 02/27/25 Unknown History esomeprazole magnesium 40 mg 40 mg PO BID 02/27/25 Unknown History capsule,delayed release famotidine 40 mg tablet 40 mg PO QHS 02/27/25 Unknown History losartan 25 mg tablet 25 mg PO DAILY 02/27/25 Unknown History pazopanib 200 mg tablet 400 mg PO DAILY 02/27/25 Unknown History Allergy/AdvReac Type Severity Reaction Status Date / Time No Known Allergies Allergy Verified 03/05/25 16:29 Family History Father Alcoholism Brother Cancer Prostate Aunt Cancer Grandmother Dementia Surgical History History of cardiac catheterization History of cardiac ablation for atrial fibrillation History of tonsillectomy and adenoidectomy History of repair of hiatal hernia History of esophagogastroduodenoscopy (EGD) Hx of colonoscopy History of surgery on arm Hx of vasectomy History of appendectomy Social History Smoking Status: Never smoker alcohol intake: current alcohol intake frequency: holidays/special occasions only Alcohol type: wine substance use type: does not use ROS ROS Narrative Review of Systems: Constitutional: Patient admits to weight loss, fatigue and malaise but he denies fever or chills. Eyes: Patient denies changes in vision or discharge from eyes. ENT: Patient admits to runny nose and sinus congestion with PND as per HPI. Resp: Patient admits to LOPEZ that progressed to SOB at rest with wheezing and cough productive of whitish/grayish sputum. CV: Patient denies chest pain, palpitations, heart racing or LE edema. GI: Patient denies abdominal pain, nausea, vomiting, diarrhea or constipation. : Patient denies dysuria or hematuria. MSK: Patient admits to generalized weakness as per HPI. Skin: Patient denies rash. Psych: Patient denies symptoms of uncontrolled depression or anxiety. Neuro: Patient denies headache, paresthesias or focal neurologic deficits. Allergy: Patient denies lip swelling, tongue swelling or urticaria. Hematology: Patient denies easy bleeding or easy bruisability. Endocrinology: Patient denies polyuria, polydipsia, polyphagia or heat/cold intolerance. 14 point ROS otherwise negative except for positives noted above in HPI. Vital Signs Vital Signs Vital Signs: 03/05/25 16:29 03/05/25 16:32 03/05/25 17:05 Temperature 100.2 F H 100.2 F H Temperature Source Oral Oral Pulse Rate 82 82 Respiratory Rate 20 H 20 H Respiratory Effort Short of Breath Respiratory Pattern Tachypnea Blood Pressure 144/76 H 144/76 H Blood Pressure Mean 98 98 Pulse Ox 96 96 Oxygen Delivery Method Room Air Room Air Room Air 03/05/25 17:08 03/05/25 17:08 03/05/25 17:29 Temperature Temperature Source Pulse Rate 71 83 Respiratory Rate 24 H 18 Respiratory Effort Respiratory Pattern Blood Pressure 145/79 H Blood Pressure Mean 101 Pulse Ox 97 93 Oxygen Delivery Method Room Air 03/05/25 17:32 03/05/25 18:00 03/05/25 18:07 Temperature 100.1 F H 99 F Temperature Source Oral Oral Pulse Rate 82 73 74 Respiratory Rate 24 H 25 H 21 H Respiratory Effort Respiratory Pattern Blood Pressure 136/79 H 126/69 H Blood Pressure Mean 98 88 Pulse Ox 95 98 Oxygen Delivery Method Room Air Room Air 03/05/25 19:00 03/05/25 19:33 03/05/25 19:35 Temperature 99 F Temperature Source Oral Pulse Rate 54 L Respiratory Rate 20 H Respiratory Effort Respiratory Pattern Blood Pressure 129/66 H Blood Pressure Mean 87 Pulse Ox 95 87 95 Oxygen Delivery Method Room Air Room Air Room Air 03/05/25 19:56 Temperature 98.7 F Temperature Source Pulse Rate 81 Respiratory Rate 16 Respiratory Effort Respiratory Pattern Blood Pressure 112/70 Blood Pressure Mean 84 Pulse Ox 92 Oxygen Delivery Method Weight Weight: 237 lb 7.005 oz Body Mass Index (BMI) 33.1 Physical Exam Const alert and oriented x3 Constitutional Narrative: Patient appears dyspneic and chronically ill. General Appearance: cooperative HEENT normocephalic, head/scalp atraumatic and hearing grossly normal bilaterally HEENT Narrative: Mucous membranes dry with poor dentition. Eyes PERRL, EOMs intact bilaterally and conjunctivae normal Neck no lymphadenopathy and supple Resp Resp Narrative: Diminished breath sounds throughout with scattered wheezing and rhonci. Auscultation: rhonchi and wheezes Cardio regular rate and regular rhythm GI normal to inspection, nondistended, normoactive bowel sounds, soft to palpation, non-tender and non-distended GI Narrative: Obese. Extremity normal to inspection, full ROM and no clubbing, cyanosis or edema Skin Skin Narrative: Patient has no evidence of rash. Neuro oriented x3, CN's II-XII intact bilaterally, moves all extremities and no focal motor deficits Sensorium / Orientation: awake, alert, oriented to person, oriented to place and oriented to time Speech: speech normal Psych affect normal Results Medical Records Data Attestation: I reviewed the patient's medical records Lab / Micro Data Attestation: I reviewed the patient's lab results. 03/05/25 17:05 03/05/25 17:00 Labs: Laboratory Results - last 24 hr 03/05/25 17:00: Sodium 136, Potassium 4.2, Chloride 101, Carbon Dioxide 21.7, Anion Gap 14, BUN 15, Creatinine 1.05, Est GFR (MDRD) Non-Af 74, BUN/Creatinine Ratio 14.5, Glucose 166 H, Calcium 8.9, Total Bilirubin 1.13, AST 40 H, ALT 31, Alkaline Phosphatase 380 H, Total Protein 6.6, Albumin 3.4, Globulin 3.3, Albumin/Globulin Ratio 1.0 03/05/25 17:05: WBC 14.4 H, RBC 4.30 L, Hgb 12.6 L, Hct 37.7 L, MCV 87.7, MCH 29.3, MCHC 33.4, RDW Std Deviation 46.8 H, RDW Coeff of Belkis 14.8 H, Plt Count 321, MPV 9.1, Immature Gran % (Auto) 0.600, Neut % (Auto) 81.3 H, Lymph % (Auto) 8.9 L, Dickenson % (Auto) 9.0, Eos % (Auto) 0.0, Baso % (Auto) 0.2, Absolute Neuts (auto) 11.7 H, Absolute Lymphs (auto) 1.27, Nucleated RBC % 0, Lactic Acid 2.7 H* Imaging Radiology Impression Chest X-Ray 03/05/25 17:25 IMPRESSION: NO ACUTE FINDINGS. Reading Location: [id number] Imaging Services [address] [place] [id number] Chest, Abd, Pel w/Contrast MR#: [id number] Acct: [id number] Name: ANYA ST Rep #: [id number] : 1950 M 74 From: Mercedez William MD PCP: Dr. Caleb Mccurdy DO Status: ADM IN Study: CT Chest, Abd, Pel w/Contrast Date of Exam: 03/05/25 Exam# [id number] Ordering Dr: Geovany Paulson DO PROCEDURE: CT CHEST, ABD, PEL W/CONTRAST 03/05/2025 REASON FOR EXAM: SEPSIS WITH AE COPD AND METASTATIC PROSTATE CA. TECHNIQUE: Chest, abdomen and pelvis CT with intravenous contrast. Coronal and Sagittal reconstruction series were provided. One or more dose reduction techniques were used (e.g., Automated exposure control, adjustment of the mA and/or kV according to patient size, use of iterative reconstruction technique. PATIENT PREPARATION: Per protocol ORAL CONTRAST TYPE: None. CONTRAST: Isovue-350 VOLUME: 100mL RADIATION DOSE SUMMARY: CTDlvol: 24.11 mGy DLP: 1368 mGycm COMPARISON: CTA chest on 02/06/2025. CT scan of the chest, abdomen and pelvis on 12/18/2024. FINDINGS: Unchanged 1.4 cm prevascular/anterior mediastinal metastatic lymph node. Unchanged bilateral metastatic, probably 20 pulmonary nodules, with the largest measuring 1.5 cm on the left and 0.9 cm on the right. Unchanged extensive metastatic liver masses with the largest in the right lobe measuring 7.9 x 17.7 cm. 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 Unchanged 1.2 cm mural nodule arising from the right posterolateral wall of the bladder. The prostatic gland is small or has been removed, unchanged. Mild amount of free fluid is noted in the pelvis, probably reactive. Normal enhancement of the main pulmonary artery and right and left pulmonary arteries. Normal enhancement of the bilateral peripheral pulmonary arteries. There is no demonstrated pulmonary embolism. Normal thoracic aorta and visualized great vessels. There is no demonstrated aortic dissection. Normal heart and pericardium. Normal hilar regions. Normal visualized trachea and bronchi. Normal pleura. Normal gallbladder and extrahepatic biliary system. Normal spleen. Normal pancreas. Normal bilateral adrenal glands. Normal size of the right kidney. There is no right renal mass. There are no right renal calculi. There is no right hydronephrosis. Normal visualized right ureter. Normal size of the left kidney. There is no left renal mass. There are no left renal calculi. There is no left hydronephrosis. Normal visualized left ureter. Normal visualized stomach. Normal small intestine. Normal colon. Normal abdominal aorta. Normal inferior vena cava. Normal retroperitoneum. There is no pelvic lymphadenopathy. Normal abdominal wall. CT/CT Chest, Abd, Pel w/Contrast IMPRESSION: Unchanged 1.4 cm prevascular/anterior mediastinal metastatic lymph node. Unchanged bilateral metastatic, probably 20 pulmonary nodules, with the largest measuring 1.5 cm on the left and 0.9 cm on the right. Unchanged extensive metastatic liver masses with the largest in the right lobe measuring 7.9 x 17.7 cm. 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 Unchanged 1.2 cm mural nodule arising from the right posterolateral wall of the bladder. The prostatic gland is small or has been removed, unchanged. Mild amount of free fluid is noted in the pelvis, probably reactive. Reading [id number] CC: Dr. Geovany Paulson DO; Dr. Caleb Mccurdy DO ~ Bank Advisor: Signed Assessment & Plan Assessment/Plan (1) Sepsis: QUALIFIERS: Sepsis acute organ dysfunction status: without acute organ dysfunction Sepsis type: sepsis due to unspecified organism Qualified Code(s): A41.9 - Sepsis, unspecified organism (2) Fever: QUALIFIERS: Fever type: unspecified Qualified Code(s): R50.9 - Fever, unspecified (3) Leukocytosis: QUALIFIERS: Leukocytosis type: unspecified Qualified Code(s): D72.829 - Elevated white blood cell count, unspecified (4) Lactic acidosis: (5) COPD exacerbation: (6) Respiratory insufficiency: (7) D-dimer, elevated: (8) Cancer with unknown primary site: (9) Malaise and fatigue: (10) Generalized weakness: (11) Weight loss: (12) Obesity (BMI 30.0-34.9): PLAN: Plan 1. Fever of 100.2 degrees Fahrenheit, Leukocytosis of 14.4K with Lactic Acidosis of 2.7 mmol/L both present on admission concerning for possible Sepsis with a corresponding CXR that revealed no acute findings and he was then diagnosed with AE COPD - Admit to ICU for treatment under the Sepsis protocol. Continue treatment with IV vancomycin and IV piperacillin-tazobactam and await culture & sensitivity data. Check CT scan of the chest/abdomen and pelvis in an effort to find source of infection plus check UA. Check viral respiratory panel. Give acetaminophen prn for [id number] (level 1-5/10) pain or fever. Give morphine IV prn for severe (level 6-10/10) pain. 2. Acute Respiratory Insufficiency due to #1 with elevated D-dimer of 2.8 present on admission - Wean supplemental oxygen as tolerated. Check CT of chest with IV contrast plus LE Doppler. 3. History of metastatic prostate cancer (1999); s/p radiation, cryoablation and androgen deprivation therapy on pazopanib followed by Dr. Esteban of oncology and Dr. 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 We will consult Palliative Care to see this patient this admission since Mr. St is agreeable. 4. Fatigue, Malaise and Generalized Weakness plus Weight Loss attributable to #1 - #3 - PT/OT/Case Management and Clinical Dietitian will be consulted to see this patient on-rounds in the AM for further recommendations with the help of all parties appreciated in advance. 5. Obesity (class I); with BMI of 33.1 this admission adding to the burden of disease outlined from #1 - #4 - Weight loss will not be recommended to this chronically ill patient with poor reserves and prognosis. Check TSH. This complicates his case and may hamper recovery. 6. Essential hypertension; on losartan - Hold scheduled antihypertensives in light of #1. 7. GERD; on esomeprazole BID plus famotidine nightly - Continue PPI and H2-jasbir as previous. 8. History of radiation colitis - Stable. 9. History of IBS - Noted. 10. Generalized anxiety; on lorazepam prn daily - Maintain present treatment. 11. BPH; on finasteride - Resume finasteride as before. 12. DVT prophylaxis - Enoxaparin 40 mg sq daily plus SCD's. Total time: Approximately (but not less than) 75 minutes. Sepsis Attestation Sepsis Alert: Yes Sepsis Attestation: Agree w/Sepsis Date exam was performed: 03/05/25 Time exam was performed: 21:30 Possible Source of Sepsis: Pulmonary Sepsis Organ Dysfunction Criteria Present: Lactic Acid > 2 mmol/L Supportive Findings: In the ER he was noted to have Fever of 100.2 degrees Fahrenheit, Leukocytosis of 14.4K with Lactic Acidosis of 2.7 mmol/L both present on admission with a corresponding CXR that revealed no acute findings and he was then diagnosed with AE COPD with Acute Respiratory Insufficiency complicated by suspected Sepsis without clear source of infection at this time with CT chest/abdomen/pelvis also negative for acute pathologic finding but did confirm widespread metastases. Fluid Resuscitation Fluid resuscitation indicated?: Yes Fluid Resuscitation ordered: 30 ml/kg fluid bolus ordered Amount of fluid ordered: 3 Sepsis Note Date exam was performed: 03/06/25 Time exam was performed: 01:30 Sepsis Attestation: Sepsis re-evaluation was performed Response to fluids: Fluid responsive hypotension Charges/Coding Visit Charges Inpatient E&M: 17685 Init Hosp L3
[2025-03-05 21:10] LABS: Reflex Lactate? Y
--- NOTE | 2025-03-05 21:22 | CT_ITS ---
PROCEDURE: CT/CT Chest, Abd, Pel w/Contrast
[2025-03-05 21:34] LABS: D-Dimer Quantitative (DVT/PE) 2.80 FEU/ug/m (0.27-0.49)
[2025-03-05 21:52] LABS: Allen Test Positive; Base Excess -4 mmol/L (-2 to +2); PO2 66 mmHG (75-100); SITE L Radial; SO2 93 % (94-98)
[2025-03-05 22:10] LABS: Magnesium 1.9 mg/dL (1.5-2.2)
--- NOTE | 2025-03-05 22:27 | ED.RN ---
report called to [facility].
--- NOTE | 2025-03-05 22:52 | VDLE_ITS ---
Reason For Study VL/Venous Duplex US - Prasanth Extrem
[2025-03-06] VITALS (18 sets, daily range): BP systolic 111–148; BP diastolic 66–117; PULSE 51–143; RESP 13–74; TEMP 35.8–36.8; O2SAT 96–100; BMI 32.1
[2025-03-06] MEDS: Lactobacillis Acidophilus 1 CAP PO ×4 (00:06→17:19)
[2025-03-06] MEDS: Piperacil/Tazobactam 3.375 GM in 0.9% Normal Saline (50mL MB+) 50 ML IV ×3 (00:07→14:43)
[2025-03-06] MEDS: Vancomycin HCl 2,000 MG in 0.9% Normal Saline (500mL Bag) 500 ML 250 MG IV (00:43)
--- NOTE | 2025-03-06 00:56 | PCM.RX.CS ---
Consult Antibiotic Management Pharmacy has been consulted to manage selected antibiotic: Vancomycin Type of Intervention Type of Consult: New start Suspected Infection Suspected Infection: Sepsis Labs Labs: Sodium 136 mmol/L (133-145) 03/05/25 17:00 Potassium 4.2 mmol/L (3.3-5.1) 03/05/25 17:00 Chloride 101 mmol/L (98-108) 03/05/25 17:00 Carbon Dioxide 21.7 mmol/L (21.0-32.0) 03/05/25 17:00 Anion Gap 14 (5-15) 03/05/25 17:00 BUN 15 mg/dL (4-19) 03/05/25 17:00 Creatinine 1.05 mg/dL (0.70-1.20) 03/05/25 17:00 Est GFR (MDRD) Non-Af 74 (>60) 03/05/25 17:00 BUN/Creatinine Ratio 14.5 RATIO (10-20) 03/05/25 17:00 Glucose 166 mg/dL (70-99) H 03/05/25 17:00 Dosing Weight Weight used for dosin.5 kg Estimated Creatinine Clearance Estimated Creatinine Clearance: 77 Goal Trough Goal Trough: 15-20 mcg/mL Pharmacy Plan for Drug Dosing Pharmacy Plan for Drug Dosing: Pharmacy Service will continue to monitor and adjust dosing as required. Follow-Up Labs Follow-Up Labs: Trough: Vancomycin Date/Time Labs Ordered Labs to be done on [date and time ordered]: 03/07/25 @1200
[2025-03-06 01:19] LABS: Reflex Lactate? Y
[2025-03-06] MEDS: 0.9% Normal Saline (1000mL) 1,000 ML 999 ML IV ×3 (02:09→04:53)
[2025-03-06] MEDS: Albuterol 2.5 MG/3 ML VIAL.NEB. INHALATION ×2 (07:04→14:08)
--- NOTE | 2025-03-06 08:18 | PCM.CONS.P ---
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 Murmur, heart IBS (irritable bowel syndrome) High blood pressure Cancer Atrial fibrillation Home Medications ?Medication ?Instructions ?Recorded ?Last Taken ?Type finasteride 5 mg tablet 5 mg PO DAILY 07/26/19 01/13/25 History lorazepam 0.5 mg tablet 0.5 mg PO DAILY PRN PRN Anxiety 07/26/19 Unknown History tamsulosin 0.4 mg capsule 0.4 mg PO QHS 07/26/19 01/13/25 History fluticasone furoate 100 1 inh inhalation QHS 11/17/24 Unknown History mcg-vilanterol 25 mcg/dose inhalation powder (Breo Ellipta) albuterol sulfate 90 mcg/actuation 1 - 2 puff inhalation Q4H PRN 01/09/25 Unknown History aerosol inhaler wheezing thiamine HCl (vitamin B1) 100 mg 100 mg PO QDAY 01/26/25 Unknown History tablet vitamin B complex 1 cap PO QDAY 01/26/25 Unknown History benzonatate 100 mg capsule 200 mg PO TID PRN PRN cough 02/27/25 Unknown History esomeprazole magnesium 40 mg 40 mg PO BID 02/27/25 Unknown History capsule,delayed release famotidine 40 mg tablet 40 mg PO QHS 02/27/25 Unknown History losartan 25 mg tablet 25 mg PO DAILY 02/27/25 Unknown History pazopanib 200 mg tablet 400 mg PO DAILY 02/27/25 Unknown History Allergy/AdvReac Type Severity Reaction Status Date / Time No Known Allergies Allergy Verified 03/05/25 16:29 Family History Father Alcoholism Brother Cancer Prostate Aunt Cancer Grandmother Dementia Surgical History History of cardiac catheterization History of cardiac ablation for atrial fibrillation History of tonsillectomy and adenoidectomy History of repair of hiatal hernia History of esophagogastroduodenoscopy (EGD) Hx of colonoscopy History of surgery on arm Hx of vasectomy History of appendectomy Social History Smoking Status: Never smoker alcohol intake: current alcohol intake frequency: holidays/special occasions only Alcohol type: wine substance use type: does not use Prior Cardiac Testing/Procedures Prior Cardiac Testing/Procedures: Echocardiogram (Echo on 02/10/2025 showed global longitudinal strain -15.7%, EF of 60%, mild 1+ tricuspid valve insufficiency.) ROS Constitutional Constitutional: Reports as per HPI, weakness and weight gain Eyes Eyes: Reports as per HPI ENT HEENT: Reports abnormal hearing and dry mouth Cardiovascular Cardiovascular: Reports edema and leg edema Respiratory/Chest Respiratory/Chest: Reports cough, dyspnea and dyspnea on exertion Gastrointestinal Gastrointestinal: Reports as per HPI Genitourinary Genitourinary: Reports as per HPI Musculoskeletal Musculoskeletal: Reports as per HPI Integumentary Integumentary: Reports as per HPI Neurologic Neurologic: Reports as per HPI Psychiatric Psychiatric: Reports anxiety Endocrine Endocrinology: Reports as per HPI Hematologic/Lymphatic Hematologic/Lymphatic: Reports as per HPI Allergic/Immunologic Allergic/Immunologic: Reports as per HPI Physical Exam Const alert and oriented x3 Constitutional Narrative: Patient does get confused at times, during conversation. Redirection and approaching conversation from a different perspective utilized and appeared to help patient understanding. General Appearance: cooperative HEENT normocephalic Eyes PERRL Neck General: trachea midline Lymph Lymphatic: no lymphadenopathy noted Resp Auscultation: rhonchi, wheezes and diminished lung sounds Cardio regular rate and regular rhythm GI normal to inspection, nondistended, normoactive bowel sounds Extremity normal capillary refill Skin no rashes or lesions noted Neuro CN's II-XII intact bilaterally and no focal motor deficits Psych Appearance: appropriate Charges/Coding Palliative Care Palliative Care: [id number] New Pt Consult 80+ min HPI Current admission Current Code Status: DNRCC-A no intubation Associated Diagnosis: metastatic prostate CA, Sepsis Consult Data Date of Consult: 03/06/25 Location of consult: ICU Reason for referral: goals of care/code status Referral source: Geovany Paulson Palliative care diagnosis (Summary list): metastatic prostate CA Palliative care services/treatment (Accepted, as consult): accepted Case discussed with referring provider: code status change HPI Narrative HPI Narrative: PAIN ASSESSMENT back discomfort Location: [low back ] Quality: [ aching] Severity/Quantity: [ moderate ] Timing/Frequency: [all the time ] Context: [ ] Factors that make it better/worse: [ reposition ] Associated signs & symptoms: [agitation ] 03/06/25: Prior to meeting with the patient at bedside I reviewed labs and radiological studies I also reviewed documentation from this admission and previous documents to include oncology visits. I then met with the patient, Anya at bedside. I introduced myself and the concept of palliative care which she voluntarily excepted our services. I explained my role to him as a palliative care provider in the hospital. He at first was a little apprehensive but then I explained to him that he did not have to talk to me if he chose not to but he stated that he would. I then discussed his prior to his admission. He did state that he was feeling poorly and was upset about his poor prognosis with his cancer. He was able to tell me how his cancer has progressed and what has been done up until this point. We did discuss his goals of care going forward in which he states he is not sure how he wants to live the rest of his life at this point in time. I did provide several options for him going forward to include: doing what he is doing with no additional services, continue With his cancer treatments but involve outpatient palliative care for an extra layer of support and symptom management as he goes through his cancer treatments or the possibility of transitioning to hospice. Eron did have questions about what hospice would look like for him. He did state that he only has a son and his son's girlfriend at home but his son is disabled. He states he does not have any other family members that would be able to help him if he chose to go home with hospice. He then asked questions about facility hospice and we did discuss the insurance ramifications of inpatient hospice and he is unsure that he would qualify and is not sure that he would have the money for an facility hospice. We did talk about the possibility of inpatient unit as his cancer progresses which she stated understanding. Eron does not feel that he can make a decision today about goals of care going forward but would like to think about his options. I did endorse talking to his son so that they could make some decisions together. Eron stated agreement. I asked Bing if he would like me to call his son in which she stated now that he will talk to him himself. We then had a discussion addressing Eron's current CODE STATUS and what his wishes would be going forward. I explained to him that as his CODE STATUS stands right now, he is a full code and we would be doing chest compressions and placing him on life support if his heart were to stop here in the hospital. Bing then stated no you will not. I did ask him what his wishes are in which she states I already filled out the paperwork for that. When I asked him what the paperwork said he stated that he designated his son to be his decision-maker and that if I were able to survive they will do it if I am not they want. I did explain to him that this [place] a [place] and that no one knows what his quality of life would be following chest compressions and being placed on the ventilator. I did explain to him what events would take place if his heart were to stop and he stated will I do not want that. I then explained to him that is important that we honor his wishes and asked him to explained to me what his wishes are. He did acknowledge that he would want to be comfortable and not have chest compressions if his heart were to stop. Then I did explain to him what that would mean. He stated agreement. We then discussed being placed on the ventilator or life support. I then explained with his advanced lung cancer and his advanced cancer how that could possibly look for him going forward in which he states that he does not want to be on a ventilator forever or for the rest of his life. I then clarified with him that he does not want to be placed on life support or ventilator support in which he stated agreement. He did acknowledge that he would like everything done up into his heart stopping. I then clarified with him that he is talking about DNR CC?a with no intubation. He did confirm this. He is in agreement to signing the DNR paperwork. All questions were asked. Palliative care will continue to follow for goals of care conversations as well as answer questions and support as clinical picture evolves. per hospitalist 03/06/25: ANYA ST, is a 74 M with a past medical history of essential hypertension; on losartan, obesity (class I); with BMI of 33.1 this admission, history of tobacco abuse; with subsequent severe COPD and chronic cough, GERD; on esomeprazole BID plus famotidine nightly, history of radiation colitis, history of IBS, generalized anxiety; on lorazepam prn daily, BPH; on finasteride, history of metastatic prostate cancer (1999); s/p radiation, cryoablation and androgen deprivation therapy on pazopanib followed by Dr. Esteban of oncology and Dr. 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 Mr. St is not a good informant with his family also unable to provide much detail at this time so information was gathered from chart, medical staff and computer. According to the records his symptoms began a few days prior to admission with the gradual-onset of LOPEZ that progressed to SOB at rest with wheezing. He also admits to an increase in his chronic cough productive of whitish/grayish sputum with runny nose, sinus congestion, post nasal drip with fatigue, malaise and generalized weakness plus weight loss. He denies associated fever, chills, chest pain, palpitations, heart racing, abdominal pain, nausea, vomiting, diarrhea, constipation, dysuria, hematuria, headache or rash. In the ER he was noted to have Fever of 100.2 degrees Fahrenheit, Leukocytosis of 14.4K with Lactic Acidosis of 2.7 mmol/L both present on admission with a corresponding CXR that revealed no acute findings and he was then diagnosed with AE COPD with Acute Respiratory Insufficiency complicated by suspected Sepsis without clear source of infection at this time and he was then admitted to the ICU for ongoing care for a stay that is expected to extend beyond 2 midnights. 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 on 02/09/25 74-year-old male past medical history of prostate cancer diagnosed , initially treated in [place], then treated with radiation therapy in 2001 and sometime later with cryoablation. Over the course of the past few years has been receiving intermittent androgen deprivation therapy under the care of Dr. Momin for what appears to be PSA relapse. His last office visit with Dr. Momin dated July 24, 2024 reported that his last Eligard was October 2023. He was in his usual state of health until October - November 2024 when he experienced increasing right upper abdominal pain and was noted to have an elevated alkaline phosphatase. November 25, 2024 abdominal ultrasound: IMPRESSION: The liver has multiple heterogeneous lesions with the appearance of diffuse metastatic disease with a largest in the left hepatic lobe measuring a proximally 8 cm and in the right hepatic lobe measuring approximately 8 cm x [address] correlation is recommended. December 18, 2024 CT chest abdomen and pelvis: IMPRESSION: Extensive lung metastatic disease. Extensive liver metastatic disease. 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 Suspect bladder tumor. Consider cystoscopy. January 06, 2025 Liver, right, ultrasound-guided core biopsy: - Leiomyosarcoma FNCLCC grade 1-2 (see note and Comment). - IHC performed: - positive for Vimentin, Desmin, SMA, and SAAD (weak). - Ki67 approximately 50%. - negative for pankeratin, CK7, PSAP, GATA3, PAX8, S100, Melan A, Chromogranin, Synaptophysin, MDM2, and HMB45. Palliative Assessment Advanced Directive - Current Admission Advance Directive: Advance Directive ON ADMISSION - REFERENCE Do you have a Healthcare Yes 03/05/25 22:45 Living Will? Is a Healthcare Living Will Yes, It is scanned in 03/05/25 22:45 present in the medical record? Do you have a Healthcare Power Yes: Kj Hugo 03/05/25 22:45 of Senior Staff Accountant? Is a Healthcare Power of Yes, It is scanned in 03/05/25 22:45 Senior Staff Accountant present in the medical rec Do You Want Additional Yes 03/05/25 22:45 Information on Advanced Directives or Healthcare Proxy/DPOA comments: chuy Underwood Psychosocial/Spiritual Information Living situation/Marital status: son lives with him in his basement, as well as sons girlfriend Geographic location: [place] Supports: Family Jew/Tete or spiritual preference: Patient is Mandaen but claims no tete Spiritual distress: Questionable although patient does not want pastoral services to visit Prior functional status: Patient states that he was able to do light cleaning and easy meals. Assistive devices at home: Denies use of any assistive devices Cultrual issues: None noted Information about the patient as a person: Patient states that he really does not like to do anything at home. When asked what he does most days he states not much because I am doing my cancer stuff. He spends most of his time sleeping or he does state that he watches some television. Symptoms Palliative performance scale: 50-60% Palliative prognostic index: 7.0 (if the PPI is greater than 6.0, survival is less than 3 weeks) Dyspnea symptoms: Moderate Constipation symptoms: Mild Nausea symptoms: Mild Vomiting symptoms: Mild Depression symptoms: Mild Anorexia symptoms: None Cough symptoms: Moderate Insomnia symptoms: None Diarrhea symptoms: None Fatigue symptoms: Moderate Weakness symptoms: Moderate Confusion symptoms: Mild Side Effects & Interventions: Confusion is intermittent. He is A and O x 3 but can get confused during conversations and the need for redirection and attempting conversation from a different perspective. Objective Data Objective Data Vital Signs: Vital Signs Temp Pulse Resp BP Pulse Ox O2 Del Method 97.8 F 59 L 22 H 111/87 H 100 Room Air 03/06/25 06:00 03/06/25 07:05 03/06/25 07:05 03/06/25 06:00 03/06/25 07:05 03/06/25 07:05 Oxygen Delivery Method Room Air Weight: 236 lb 8.896 oz Body Mass Index (BMI) 32.1 Intake & Output: Intake and Output for Last 24 Hours 03/04/25 03/05/25 03/06/25 23:59 23:59 23:59 Intake Total 1150 / 1150 2590 / 2590 Balance 1150 / 1150 2590 / 2590 Lab / Micro Data Attestation: I reviewed the patient's lab results. 03/05/25 17:05 03/05/25 17:00 Labs: Laboratory Results - last 24 hr 03/05/25 17:00: D-Dimer Quant (PE/DVT) 2.80 H*, Sodium 136, Potassium 4.2, Chloride 101, Carbon Dioxide 21.7, Anion Gap 14, BUN 15, Creatinine 1.05, Est GFR (MDRD) Non-Af 74, BUN/Creatinine Ratio 14.5, Glucose 166 H, Calcium 8.9, Phosphorus 2.8, Magnesium 1.9, Total Bilirubin 1.13, AST 40 H, ALT 31, Alkaline Phosphatase 380 H, Total Protein 6.6, Albumin 3.4, Globulin 3.3, Albumin/Globulin Ratio 1.0, TSH 0.901 03/05/25 17:05: WBC 14.4 H, RBC 4.30 L, Hgb 12.6 L, Hct 37.7 L, MCV 87.7, MCH 29.3, MCHC 33.4, RDW Std Deviation 46.8 H, RDW Coeff of Belkis 14.8 H, Plt Count 321, MPV 9.1, Immature Gran % (Auto) 0.600, Neut % (Auto) 81.3 H, Lymph % (Auto) 8.9 L, [place] % (Auto) 9.0, Eos % (Auto) 0.0, Baso % (Auto) 0.2, Absolute Neuts (auto) 11.7 H, Absolute Lymphs (auto) 1.27, Nucleated RBC % 0, Lactic Acid 2.7 H* 03/05/25 21:15: Lactic Acid 4.1 H* 03/05/25 21:50: Lactic Acid 4.7 H* Micro: Microbiology 03/06/25 00:55 Mucosa - Nose Respiratory Panel (PCR) - Final ABG Data ABG results: ABG 03/05/25 21:48 Specimen Type ART Sample Site L Radial pH 7.41 Bicarbonate Actual 20.8 L Total CO2 22 Base Excess -4 L O2 Saturation 93 L ABG pCO2 32.9 L ABG pO2 66 L Geraldo Test Positive O2 Delivery Device Room Air Vent Mode Not entered Radiography Diagnostic Testing: Radiology Impression Chest X-Ray 03/05/25 17:25 IMPRESSION: NO ACUTE FINDINGS. Reading Location: [address] Chest/Abdomen/Pelvis CT 03/05/25 21:22 IMPRESSION: Unchanged 1.4 cm prevascular/anterior mediastinal metastatic lymph node. Unchanged bilateral metastatic, probably 20 pulmonary nodules, with the largest measuring 1.5 cm on the left and 0.9 cm on the right. Unchanged extensive metastatic liver masses with the largest in the right lobe measuring 7.9 x 17.7 cm. 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 Unchanged 1.2 cm mural nodule arising from the right posterolateral wall of the bladder. The prostatic gland is small or has been removed, unchanged. Mild amount of free fluid is noted in the pelvis, probably reactive. Reading Location: [place] [id number] Impressions & Recommendations Patient & Family Issues discussed with the patient and family: Goals of care and CODE STATUS Patient goal: Patient is considering possible outpatient palliative or hospice services. Wants to think about it. Considering comfort and quality of life versus aggressive medical management Family goal: No family at bedside Ethical & Legal Ethical and legal: Patient does have legal POA on file Impressions Impressions: Patient would benefit from outpatient services of either palliative care or hospice depending upon his wishes. Recommentation Palliative recommendations: Patient would benefit from either hospice or palliative care care services from an outpatient standpoint Encouter Achieved as a result of this Palliative Care Encounter: [[id number], [id number] ] minutes were spent in total for this visit which consisted, primarily of counseling and education dealing with the complex and emotionally intense issues of symptom management and palliative care in the setting of serious and potentially life-threatening illness. Review of documentation, labs and radiological studies. ?Patient/family had the opportunity to ask questions *This note was dictated utilizing voice recognition software. Although every attempt is made to address spelling or content errors, some may have inadvertently been missed. Plan (1) Lactic acidosis: PLAN: Medical management per IDT (2) Sepsis: QUALIFIERS: Sepsis type: sepsis due to unspecified organism Sepsis acute organ dysfunction status: without acute organ dysfunction Qualified Code(s): A41.9 - Sepsis, unspecified organism PLAN: Medical management per IDT (3) Cancer with unknown primary site: PLAN: Medical management per IDT (4) Metastatic sarcoma: PLAN: Medical management per IDT (5) Palliative care encounter: PLAN: *Palliative discussion about goals of care and wishes going forward. *Recommendation of outpatient palliative care or hospice pending patient consideration (6) Goals of care, counseling/discussion: PLAN: *Extensive goals of care discussion given stage IV cancer diagnosis with the prognosis of 3 months or less *Extensive CODE STATUS discussion in which the patient has elected DNR CC?a with no intubation
[2025-03-06 08:44] LABS: Mucous, Urine 0 SEEN /hpf (<or=2+); Squamous Epithelial Cells - UA 0 SEEN /hpf (0-5)
[2025-03-06 08:50] LABS: Color, Urine Yellow (Yellow); Glucose, Dipstick Normal (Normal); Ketone-Dipstick Negative (Negative); Leukocyte Esterase-Dipstick Negative /ul (Negative); Nitrite-Dipstick Negative (Negative); Occult Blood-Urine 150 /ul (Negative); Protein-Dipstick 30 mg/dl (Negative); Specific Gravity, Urine 1.015 (1.002-1.030); Urine Bilirubin Dipstick Negative (Negative)
[2025-03-06 08:56] LABS: Red Blood Cells-Urine 5-10 SEEN /hpf (0-5)
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
[2025-03-06 10:07] LABS: Hematocrit 34.4 % (40-54); Hemoglobin 11.4 g/dL (13.0-16.5); Mean Corp Hgb Conc 33.1 g/dL (32-36); Mean Corpuscular Volume 87.8 fL (80-94); Mean Platelet Vol. 9.4 fl (6.2-12.0); Platelet Count 264 K/mm3 (150-450); RBC Distribution Width CV 14.6 % (11.6-14.6); RBC Distribution Width SD 47.0 fl (35.1-43.9); Red Blood Count 3.92 M/mm3 (4.6-6.2); White Blood Count 9.1 K/mm3 (4.4-11.0)
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
[2025-03-06] MEDS: Thiamine Hydrochloride 100 MG Tablet PO (10:47)
[2025-03-06] MEDS: Vitamin B Comp W-C Capsule 1 CAP PO (10:48)
[2025-03-06] MEDS: 0.9% Saline Lock 10 ML Syringe IV (10:53)
[2025-03-06 10:59] LABS: BUN 16 mg/dL (4-19); BUN/Creat Ratio 17.9 RATIO (10-20); Calcium,Total 8.2 mg/dL (7.6-11.0); Chloride 105 mmol/L (98-108); Estimated Creatinine Clearance 92.85 ml/min (50-250); Glucose 253 mg/dL (70-99); Potassium 4.1 mmol/L (3.3-5.1)
[2025-03-06 11:00] LABS: Anion Gap 14 (5-15); Carbon Dioxide 18.2 mmol/L (21.0-32.0)
--- NOTE | 2025-03-06 11:36 | PN.HOSP_ITS ---
Reason for Visit
--- NOTE | 2025-03-06 11:36 | PCM.PN.HOSP ---
Reason for Visit Chief Complaint: SOB, Wheezing and Productive Cough. Subjective Subjective Saw patient at bedside this morning, son and daughter present. Patient is hard of hearing but was otherwise sitting back comfortably in bed, conversing normally, in no acute distress. He continues to have an ongoing dry cough but denies any shortness of breath at rest or chest pain. Denies any fevers or chills. No other new concerns today. Objective Data Objective Data Vital Signs: Vital Signs Temp Pulse Resp BP Pulse Ox O2 Del Method 96.4 F L 78 19 H 144/117 H 96 Room Air 03/06/25 11:28 03/06/25 11:28 03/06/25 11:28 03/06/25 11:28 03/06/25 11:28 03/06/25 11:28 Oxygen Delivery Method Room Air Weight: 107.3 kg Body Mass Index (BMI) 32.1 Intake & Output: Intake and Output for Last 24 Hours 03/04/25 03/05/25 03/06/25 23:59 23:59 23:59 Intake Total 1150 / 1150 3640 / 3640 Balance 1150 / 1150 3640 / 3640 Lab / Micro Data 03/06/25 09:57 03/06/25 09:57 Labs: Laboratory Results - last 24 hr 03/05/25 08:23: Urine Color Yellow, Urine Clarity Clear, Urine pH 6.0, Ur Specific [place] 1.015, Urine Protein 30 H, Urine Glucose (UA) Normal, Urine Ketones Negative, Urine Occult Blood 150 H, Urine Nitrite Negative, Urine Bilirubin Negative, Urine Urobilinogen Normal, Ur Leukocyte Esterase Negative, Urine RBC 5-10 SEEN, Urine WBC 0 SEEN, Ur Squamous Epith Cells 0 SEEN, Urine Bacteria 2+, Urine Mucus 0 SEEN 03/05/25 17:00: D-Dimer Quant (PE/DVT) 2.80 H*, Sodium 136, Potassium 4.2, Chloride 101, Carbon Dioxide 21.7, Anion Gap 14, BUN 15, Creatinine 1.05, Est GFR (MDRD) Non-Af 74, BUN/Creatinine Ratio 14.5, Glucose 166 H, Calcium 8.9, Phosphorus 2.8, Magnesium 1.9, Total Bilirubin 1.13, AST 40 H, ALT 31, Alkaline Phosphatase 380 H, Total Protein 6.6, Albumin 3.4, Globulin 3.3, Albumin/Globulin Ratio 1.0, TSH 0.901 03/05/25 17:05: WBC 14.4 H, RBC 4.30 L, Hgb 12.6 L, Hct 37.7 L, MCV 87.7, MCH 29.3, MCHC 33.4, RDW Std Deviation 46.8 H, RDW Coeff of Belkis 14.8 H, Plt Count 321, MPV 9.1, Immature Gran % (Auto) 0.600, Neut % (Auto) 81.3 H, Lymph % (Auto) 8.9 L, [place] % (Auto) 9.0, Eos % (Auto) 0.0, Baso % (Auto) 0.2, Absolute Neuts (auto) 11.7 H, Absolute Lymphs (auto) 1.27, Nucleated RBC % 0, Lactic Acid 2.7 H* 03/05/25 21:15: Lactic Acid 4.1 H* 03/05/25 21:50: Lactic Acid 4.7 H* 03/06/25 09:57: WBC 9.1, RBC 3.92 L, Hgb 11.4 L, Hct 34.4 L, MCV 87.8, MCH 29.1, MCHC 33.1, RDW Std Deviation 47.0 H, RDW Coeff of [place]kis 14.6, Plt Count 264, MPV 9.4, Sodium 137, Potassium 4.1, Chloride 105, Carbon Dioxide 18.2 L, Anion Gap 14, BUN 16, Creatinine 0.87, Estim Creat Clear Calc 92.85, Est GFR (MDRD) Non-Af 90, BUN/Creatinine Ratio 17.9, Glucose 253 H, Lactic Acid 2.8 H*, Calcium 8.2 Micro: Microbiology 03/05/25 08:23 Urine, Clean Catch Legionella Antigen - Final 03/05/25 08:23 Urine, Clean Catch Streptococcus pneumoniae Antigen (M - Final 03/06/25 00:55 Mucosa - Nose Respiratory Panel (PCR) - Final ABG Data ABG results: ABG 03/05/25 21:48 Specimen Type ART Sample Site L Radial pH 7.41 Bicarbonate Actual 20.8 L Total CO2 22 Base Excess -4 L O2 Saturation 93 L ABG pCO2 32.9 L ABG pO2 66 L Geraldo Test Positive O2 Delivery Device Room Air Vent Mode Not entered Radiography Diagnostic Testing: Radiology Impression Chest X-Ray 03/05/25 17:25 IMPRESSION: NO ACUTE FINDINGS. Reading Location: [id number] Chest/Abdomen/Pelvis CT 03/05/25 21:22 IMPRESSION: Unchanged 1.4 cm prevascular/anterior mediastinal metastatic lymph node. Unchanged bilateral metastatic, probably 20 pulmonary nodules, with the largest measuring 1.5 cm on the left and 0.9 cm on the right. Unchanged extensive metastatic liver masses with the largest in the right lobe measuring 7.9 x 17.7 cm. 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 Unchanged 1.2 cm mural nodule arising from the right posterolateral wall of the bladder. The prostatic gland is small or has been removed, unchanged. Mild amount of free fluid is noted in the pelvis, probably reactive. Reading [facility] Physical Exam Const alert, oriented x3 and no apparent distress Constitutional Narrative: Elderly male, class I obesity, hard of hearing, mildly fatigued appearing but otherwise sitting back comfortably in bed, conversing normally, in no acute distress. General Appearance: cooperative and comfortable HEENT normocephalic, head/scalp atraumatic, nasal mucous membranes and turbinates normal and moist oral mucous membranes Eyes PERRL, EOMs intact bilaterally and conjunctivae normal Neck full ROM Chest inspection of chest normal Resp normal respiratory effort and no use of accessory muscles Resp Narrative: Breathing comfortably on room air at rest. Mildly diminished breath sounds at bilateral lung bases but otherwise good air movement throughout with no wheezing noted. Cardio regular rate, regular rhythm, no murmurs and peripheral pulses 2+ throughout GI normal to inspection, nondistended, normoactive bowel sounds, soft to palpation, non-tender and non-distended Back/Spine normal ROM Extremity normal to inspection, full ROM and no pedal edema Skin no rashes or lesions noted Neuro moves all extremities and no focal motor deficits Psych mental status grossly normal Assessment & Plan Assessment/Plan (1) Elevated lactic acid level: (2) Generalized weakness: PLAN: Plan Patient is a 74-year-old male who presented to [facility] ED on 03/05/2025 with shortness of breath, persistent cough and weakness. 1. Concern for infection of unclear etiology, sepsis ruled out ? [facility] followed. Leukocytosis, low-grade fever and elevated lactic acid on admit concerning for sepsis. However, did not meet sepsis criteria and no clear source of infection identified to this point. CT chest abdomen pelvis showed known cancer lesions as below, no other concerning findings. Will continue to treat with broad-spectrum antibiotics for now. Follow-up cultures. Notably there was some concern for a COPD exacerbation on admit but patient with no history of COPD, no wheezing on exam and CT chest with no concerning findings. Will hold off on further IV steroids at this time. 2. Elevated lactic acid, improving ? Lactic acid 2.7 on initial check, then worsened to 4.7 on evening of admission. With IV fluid resuscitation improved back to 2.8 on hospital day 2. Suspected that patient has poor clearance of lactic acid due to metastatic liver lesions as below. Elevation may be secondary to infection as above versus mild degree of dehydration. No acidosis noted on labs. No need for further lactic acid checks at this time. 3. 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 Palliative care following. Follows with Dr. Esteban with oncology, last office note on 02/09. History of prostate cancer back in 1999 and has been under fairly good control with androgen deprivation therapy, follows with Dr. Momin. In usual state of health until November when he came in with abdominal pain and elevated alkaline phosphatase. CT scan showed extensive lung and liver metastatic disease as well as suspected bladder tumor. 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 Per oncology, not a candidate for systemic chemotherapy due to suboptimal performance status and comorbidities. Treating with single agent therapy with pazopanib at this time. CT chest abdomen pelvis on this admission was unchanged from CT scan in early December. Palliative care discussed goals of care with patient at length on 03/06. Code status changed to DNRCCA, DNI will otherwise continue current care. Should be fine for discharge home in the next 1 to 2 days and can follow-up closely with oncology and urology in the outpatient setting. Continue home Flomax and finasteride. 4. Mild acute on chronic debility ? PT/OT/case management consulted. Patient lives at home with his son. Reports mild worsening fatigue recently but general functional status has not significantly worsened since recent cancer diagnosis. Appreciate therapy recommendations but suspect patient will be okay for discharge home with no therapy needs at this time. Chronic medical conditions: ? Class I obesity: BMI 32 on admit. Complicates hospital course and care. ? Hypertension: Continue home losartan. ? GERD: Continue home PPI. ? Anxiety: Continue home diazepam daily as needed. ? Asthma: Stable on room air, not in acute exacerbation. Continue home inhalers. DVT prophylaxis: Lovenox CODE STATUS: DNR CCA, DNI Expected disposition: Home, 1 to 2 days Total clinical time spent by myself addressing the patient's medical issues, reviewing all the data, and collaborating with patient's care team: 42 minutes. Charges/Coding Visit Charges Inpatient E&M: 21210 Subs Hosp L2
[2025-03-06] MEDS: Vancomycin HCl 1,500 MG in 0.9% Normal Saline (500mL Bag) 500 ML 250 MG IV (12:20)
[2025-03-06] MEDS: PAZOPANIB HCL 200 MG 400 MG PO (12:21)
[2025-03-06 14:02] LABS: Reflex Lactate? Y
--- NOTE | 2025-03-06 20:30 | NURSING ---
Pt primary RN notified this RN that she was going to need assistance with patient. States pt pulled out an IV and was refusing to lay in bed. This RN to patient room. Pt was standing in room in street clothes with bag on his shoulder. This RN attempted to converse with patient. Pt walked toward the hallway. This RN attempted to ask orientation questions to assess patient's competence to leave AMA. Pt uncooperative with assessment. Pt then swung at primary RN. Hans anderson called at 1944. treatment supervisor, hospitalist, house nurse practitioner, security member, and house resource officer responded to the floor. Pt continued to walk the halls and eventually called his son. This RN spoke with patient son on the phone. Son inquired if he should come to the hospital. This RN told son that pt seemed confused and it would not be a bad idea for him to come to the hospital so that pt could see a familiar face. Pt seemed paranoid, states, I know what you guys are doing. Son states he was ~20 minutes away. Pt voluntarily walked back to his inpatient room and sat on bed. This RN again attempted to assess orientation. Requested pt state where he was at. Pt states, my director of outreach should be able to give you that. Orders placed per APPAREL SALES ASSOCIATE for IM Haldol and IM Vistaril. Medication drawn up. Pt stated, you aren't giving me any drugs. This RN again attempted to assess orientation. Pt stated year of 2024. After conversation with wash house supervisor, pt agreed to stay until son arrived. Medications not given. Pt son and another female arrived. This RN was standing in hallway with son and was briefly explaining what had occurred. Pt walked out into the hallway. Son stated, I guess we're leaving. AMA forms printed. Patient signed AMA form. This RN requested son sign form as well; he refused (arm was in a sling). Female accompanying green party signed AMA form. Home medication returned to patient son. Left AC IV removed per patient at his request. This RN covered site with gauze and tape. treatment supervisor, APPAREL SALES ASSOCIATE, and house resource officer present at patient's departure.
--- NOTE | 2025-03-06 20:47 | PCM.HOSP.N ---
Hospitalist Note Code Minnie called on pt by [facility] staff. Pt pulled out 1 IV, dressed self, and was trying to leave the floor. Security convinced pt to return to his room. Haloperidol 2mg IM x1 to be followed by hydroxyzine 25mg IM x1 if aggressive behaviors continued. Pt's son called, on his way in. Pt stating that he just wants to leave, but refuses to answer orientation questions. Pt son arrives, signs AMA forms and escorts pt out of hospital. IM medications were never given, per nrsg.
--- NOTE | 2025-03-06 20:50 | NURSING ---
Patient found standing in bathroom with IV pulled out when RN came into room for round, pt refusing to answer orientation questions but increasingly confused and agitated. Patient not able to be redirected. Patient swung at this RN code monica called, [facility] police and security arrived on floor. Patient walking in hallway with street clothes on and bag packed.Continues to be agitated and requests son to come to [facility]. Son called, son and patient signed patient AMA form and pt left AMA with son.
--- NOTE | 2025-03-07 08:11 | DCINST_ITS ---
Discharge Instructions
--- NOTE | 2025-03-07 08:11 | PCM.DC.SUM ---
Providers Date of Admission: 03/05/25 Date of Discharge: 03/06/25 Primary Care Physician: Dr. Caleb Mccurdy, DO Consultations 03/05/25 22:44 Consult: Dentist/Owner / Pulmonary Medicine Routine Consulting Provider: Intensivists/Pulmonary Med Reason for Consult: Sepsis with AE COPD and Met CA. EMERGENT Consult: No MD Notified: Yes Date Notified: 03/06/25 Time Notified: 06:14 Method of Notification: Text 03/06/25 05:40 Consult: Inpatient Palliative Care Routine Consulting Provider: Erin Rey Reason for Consult: Sepsis, AE COPD and Metastatic Cancer. EMERGENT Consult: No MD Notified: Yes Date Notified: 03/06/25 Time Notified: 08:49 Method of Notification: Verbal Method of Consult:: In-Person Reason For Visit: SEPSIS WITH AE COPD Diagnosis Discharge Diagnosis (1) Elevated lactic acid level: Status: Acute Code(s): R79.89 - Other specified abnormal findings of blood chemistry (2) Generalized weakness: Status: Acute Code(s): R53.1 - Weakness Medications at Discharge Home Medications finasteride 5 mg tablet 5 mg PO DAILY 07/26/19 lorazepam 0.5 mg tablet 0.5 mg PO DAILY PRN PRN Anxiety 07/26/19 tamsulosin 0.4 mg capsule 0.4 mg PO QHS 07/26/19 fluticasone furoate 100 mcg-vilanterol 25 mcg/dose inhalation powder (Breo Ellipta) 1 inh inhalation QHS 11/17/24 albuterol sulfate 90 mcg/actuation aerosol inhaler 1 - 2 puff inhalation Q4H PRN wheezing 01/09/25 thiamine HCl (vitamin B1) 100 mg tablet 100 mg PO QDAY 01/26/25 vitamin B complex 1 cap PO QDAY 01/26/25 benzonatate 100 mg capsule 200 mg PO TID PRN PRN cough 02/27/25 esomeprazole magnesium 40 mg capsule,delayed release 40 mg PO BID 02/27/25 famotidine 40 mg tablet 40 mg PO QHS 02/27/25 losartan 25 mg tablet 25 mg PO DAILY 02/27/25 pazopanib 200 mg tablet 400 mg PO DAILY 02/27/25 Hospital Course Operations None Procedures EKG and - (Chest x-ray, CT chest abdomen pelvis, venous Doppler study) Summary of Care Provided Minutes Spent on Discharge: 37 Hospital Course: Patient is a 74-year-old male who presented to [facility] ED on 03/05/2025 with shortness of breath, persistent cough and weakness. Hospital course as noted below. Patient unfortunately opted to leave AGAINST MEDICAL ADVICE on the evening of 03/06. 1. Concern for infection of unclear etiology, sepsis ruled out ? Dentist/Owner followed. Leukocytosis, low-grade fever and elevated lactic acid on admit concerning for sepsis. However, did not meet sepsis criteria and no clear source of infection identified to this point. CT chest abdomen pelvis showed known cancer lesions as below, no other concerning findings. Will continue to treat with broad-spectrum antibiotics for now. Follow-up cultures. Notably there was some concern for a COPD exacerbation on admit but patient with no history of COPD, no wheezing on exam and CT chest with no concerning findings. No need for further steroids. 2. Elevated lactic acid, improving ? Lactic acid 2.7 on initial check, then worsened to 4.7 on evening of admission. With IV fluid resuscitation improved back to 2.8 on hospital day 2. Suspected that patient has poor clearance of lactic acid due to metastatic liver lesions as below. Elevation may be secondary to infection as above versus mild degree of dehydration. No acidosis noted on labs. No need for further lactic acid checks at this time. 3. 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 Palliative care followed. Follows with Dr. Esteban with oncology, last office note on 02/09. History of prostate cancer back in 1999 and has been under fairly good control with androgen deprivation therapy, follows with Dr. Momin. In usual state of health until November when he came in with abdominal pain and elevated alkaline phosphatase. CT scan showed extensive lung and liver metastatic disease as well as suspected bladder tumor. 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 Per oncology, not a candidate for systemic chemotherapy due to suboptimal performance status and comorbidities. Treating with single agent therapy with pazopanib at this time. CT chest abdomen pelvis on this admission was unchanged from CT scan in early December. Palliative care discussed goals of care with patient at length on 03/06. Code status changed to DNRCCA, DNI will otherwise continue current care. Continue home Flomax and finasteride. Will need close outpatient follow-up with oncology and urology 4. Mild acute on chronic debility ? PT/OT/case management followed. Patient lives at home with his son. Reports mild worsening fatigue recently but general functional status has not significantly worsened since recent cancer diagnosis. Chronic medical conditions: ? Class I obesity: BMI 32 on admit. Complicated hospital course and care. ? Hypertension: Continue home losartan. ? GERD: Continue home PPI. ? Anxiety: Continue home diazepam daily as needed. ? Asthma: Stable on room air, not in acute exacerbation. Continue home inhalers. Total clinical time spent by myself addressing the patient's medical issues, reviewing all the data, and collaborating with patient's care team: 37 minutes. Physical Exam Const alert, oriented x3 and no apparent distress Constitutional Narrative: Elderly male, class I obesity, hard of hearing, mildly fatigued appearing but otherwise sitting back comfortably in bed, conversing normally, in no acute distress. General Appearance: cooperative and comfortable HEENT normocephalic, head/scalp atraumatic, nasal mucous membranes and turbinates normal and moist oral mucous membranes Eyes PERRL, EOMs intact bilaterally and conjunctivae normal Neck full ROM Chest inspection of chest normal Resp normal respiratory effort and no use of accessory muscles Resp Narrative: Breathing comfortably on room air at rest. Mildly diminished breath sounds at bilateral lung bases but otherwise good air movement throughout with no wheezing noted. Cardio regular rate, regular rhythm, no murmurs and peripheral pulses 2+ throughout GI normal to inspection, nondistended, normoactive bowel sounds, soft to palpation, non-tender and non-distended Back/Spine normal ROM Extremity normal to inspection, full ROM and no pedal edema Skin no rashes or lesions noted Neuro moves all extremities and no focal motor deficits Psych mental status grossly normal Weight / BMI Weight Weight: 107.3 kg Body Mass Index (BMI) 32.1 ABG / Lab / Microbiology Data 03/06/25 09:57 03/06/25 09:57 Laboratory: Laboratory Results - last 24 hr 03/05/25 08:23: Urine Color Yellow, Urine Clarity Clear, Urine pH 6.0, Ur Specific [place] 1.015, Urine Protein 30 H, Urine Glucose (UA) Normal, Urine Ketones Negative, Urine Occult Blood 150 H, Urine Nitrite Negative, Urine Bilirubin Negative, Urine Urobilinogen Normal, Ur Leukocyte Esterase Negative, Urine RBC 5-10 SEEN, Urine WBC 0 SEEN, Ur Squamous Epith Cells 0 SEEN, Urine Bacteria 2+, Urine Mucus 0 SEEN 03/06/25 09:57: WBC 9.1, RBC 3.92 L, Hgb 11.4 L, Hct 34.4 L, MCV 87.8, MCH 29.1, MCHC 33.1, RDW Std Deviation 47.0 H, RDW Coeff of [place] 14.6, Plt Count 264, MPV 9.4, Sodium 137, Potassium 4.1, Chloride 105, Carbon Dioxide 18.2 L, Anion Gap 14, BUN 16, Creatinine 0.87, Estim Creat Clear Calc 92.85, Est GFR (MDRD) Non-Af 90, BUN/Creatinine Ratio 17.9, Glucose 253 H, Lactic Acid 2.8 H*, Calcium 8.2 Microbiology: Microbiology 03/06/25 14:50 Nasal Secretion MRSA (PCR) - Final 03/05/25 08:23 Urine, Clean Catch Legionella Antigen - Final 03/05/25 08:23 Urine, Clean Catch Streptococcus pneumoniae Antigen (M - Final 03/06/25 00:55 Mucosa - Nose Respiratory Panel (PCR) - Final Radiography Diagnostic Testing: Radiology Impression Venous Doppler Study 03/05/25 22:52 Interpretation Summary Deep veins of the lower extremities are bilaterally patent and compressible segmentally. There is no evidence of deep vein thrombosis on either side. Valvular competence appears intact within the proximal deep venous systems bilaterally. The great saphenous veins appear bilaterally patent and compressible segmentally. Ordering Physician: Geovany Paulson Referring Physician: Caleb Mccurdy Performed By: [place] RVT D/C Instructions DC O2, CPAP, BIPAP Needs Home O2 Discharge instructions: No Meaningful Use Info Meaningful Use Meaningful Use Diagnoses (Choose all that apply): None applicable Discharge Plan Admission Admit Date/Time: 03/05/25 20:54 Primary Reason for Your Visit: Shortness of breath, cough, weakness Attending Provider: Eric Julio Primary Care Provider: Caleb Mccurdy Consulting Providers: Geovany Paulson; Erin Rey Discharge Orders/Prescriptions Prescriptions: Continued fluticasone furoate-vilanterol [Breo Ellipta] 100-25 mcg/dose blister with device 1 inh inhalation QHS thiamine HCl (vitamin B1) 100 mg tablet 100 mg PO QDAY vitamin B complex Capsule 1 cap PO QDAY lorazepam 0.5 MG tablet 0.5 mg PO DAILY PRN PRN (Reason: Anxiety) tamsulosin 0.4 MG capsule 0.4 mg PO QHS finasteride 5 MG tablet 5 mg PO DAILY albuterol sulfate 90 mcg/actuation HFA aerosol inhaler 1 - 2 puff INHALATION Q4H PRN (Reason: wheezing) losartan 25 mg tablet 25 mg PO DAILY pazopanib 200 mg tablet 400 mg PO DAILY famotidine 40 mg tablet 40 mg PO QHS benzonatate 100 mg capsule 200 mg PO TID PRN PRN (Reason: cough) esomeprazole magnesium 40 mg capsule,delayed release(DR/EC) 40 mg PO BID Referrals / Follow Up: Caleb Mccurdy DO [Primary Care Provider, Medical] Disposition Disposition (needs filled in before D/C Order can be placed): Against Medical Advice Charges/Coding Visit Charges Inpatient E&M: 04528 Disch Hosp >30min
== END 2025-03-06 20:30 | disposition left against medical advice (07) | DRG 815 ==
LOC: ED 21:02 → ICU 21:04 → PCU 03-06 15:42
PROVIDERS: Admitting Provider Internal Medicine; Emergency Provider Emergency Medicine; Visit Provider Hospitalist
DX: D72.829 Elevated white blood cell count, unspecified (principal); C78.02 Secondary malignant neoplasm of left lung; C78.7 Secondary malignant neoplasm of liver and intrahepatic bile duct; D64.9 Anemia, unspecified; E66.811 Obesity, class 1; C61 Malignant neoplasm of prostate; F41.1 Generalized anxiety disorder; Z51.5 Encounter for palliative care; I10 Essential (primary) hypertension; J45.909 Unspecified asthma, uncomplicated; R63.4 Abnormal weight loss; I48.91 Unspecified atrial fibrillation; K21.9 Gastro-esophageal reflux disease without esophagitis; R53.1 Weakness; R50.9 Fever, unspecified; R09.02 Hypoxemia; R79.89 Other specified abnormal findings of blood chemistry; Z66 Do not resuscitate; N40.0 Benign prostatic hyperplasia without lower urinary tract symptoms; R53.81 Other malaise; R53.83 Other fatigue; H91.90 Unspecified hearing loss, unspecified ear; R79.1 Abnormal coagulation profile; Z79.51 Long term (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 inhaled steroids; Z68.33 Body mass index [BMI] 33.0-33.9, adult; Z87.19 Personal history of other diseases of the digestive system; Z90.49 Acquired absence of other specified parts of digestive tract; Z79.899 Other long term (current) drug therapy; Z53.29 Procedure and treatment not carried out because of patient's decision for other reasons; Z92.3 Personal history of irradiation
CPT/HCPCS: 36600; 71046; 71260; 74177; 80048; 80053; 81001; 82803; 83605; 83735; 84100; 84443; 85025; 85027; 85379; 87040; 87449; 87633; 87641; 93970; 94640; 97802; 99285; Q9967; A4216

== ENCOUNTER 2025-03-11 06:15 | Day surgery (SDC) | payer MEDICARE, SELFPAY ==
--- NOTE | 2025-03-04 10:48 | PAT.ANESEVAL ---
Pre-Assessment Diagnosis/Proposed Procedure Planned Operative Procedure(s): . Anesthesia History Anesthesia History - validation consultant: Anesthesia History - validation consultant Hx Hospitalization Yes: [facility] 4 DAYS ADJUST 02/27/25 14:57 CANCER MED Any Problems With Anesthesia No 02/27/25 14:57 Cholinesterase deficiency No 02/27/25 14:57 You/Your Family Experience No 02/27/25 14:57 fever (hyperthermia) with Relationship Recent Exposure to Contagious No 01/14/25 07:17 Disease Does patient have nerve No 02/27/25 14:57 stimulator Patient instructed to have device shut off --Does patient have Pacemaker or ICD? When Was Last Pacemaker Check QUESTION #4 FULL TEXT: You/Your Family Experience fever (hyperthermia) with Anesthesia Last Oral Intake Last Oral intake: Last Oral Intake NPO since Meds taken in AM with sips of water? Meds patient instructed to take am of surgery PONV PONV - validation consultant: PONV - validation consultant Female No 02/27/25 14:57 HX of Motion Sickness No 02/27/25 14:57 HX of N/V After Surgery No 02/27/25 14:57 Non-Smoker Yes 02/27/25 14:57 Duration of Surgery greater Yes 02/27/25 14:57 than 60 minutes Number of Risk Factors 2 02/27/25 14:57 PONV Score Moderate Risk 02/27/25 14:57 Height & Weight Height & Weight: Anesthesia: Height & Weight Height 5 ft 11 in 02/09/25 15:26 Respiratory Assessment Respiratory Assessment - validation consultant: Respiratory Tract Infection Hx - validation consultant Hx Respiratory Tract Infection No 02/27/25 14:57 STOP Sleep Apnea STOP Sleep Apnea - validation consultant: STOP Sleep Apnea - validation consultant Hx Hypertension Yes: CONTROLLED WITH MED 02/27/25 14:57 Hx Sleep Apnea Yes 02/27/25 14:57 CPAP Yes 02/27/25 14:57 BIPAP No 02/27/25 14:57 Do you snore loudly (louder than talking or can be heard Do you often feel tired/ fatigued/ sleepy during daytime? Has anyone observed you stop breathing during sleep? STOP Results Positive 02/27/25 14:57 QUESTION #5 FULL TEXT : Do you snore loudly (louder than talking or can be heard through closed doors)? 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 Specify any problems Hx of Preganancy in last 3 N/A 02/27/25 14:57 Months Nurse Filling Out Transfusion DSCHRIBER 02/27/25 14:57 & Questions: Date: 02/27/25 02/27/25 14:57 Time: 14:59 02/27/25 14:57 Patient unable to answer at this time (ie. confused, unrespo /Reproduction History /Reproductive History - validation consultant: /Reproductive Hx- validation consultant Hx Now No 02/27/25 14:57 Gestational Age (in weeks): EDC: Hx Hx Para Hx Section SAB No 02/27/25 14:57 PFSH Medical History (Updated 02/27/25 @ 15:17 by Jessica Willett) History of Holter monitoring Encounter for education Metastatic sarcoma Wears hearing aid Wears partial dentures Wears glasses Alcohol use Back pain Radiation burn Gastric reflux Non-smoker Chronic cough Shortness of breath on exertion History of echocardiogram History of stress test Cardiology follow-up encounter Prostate cancer 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 Murmur, heart IBS (irritable bowel syndrome) High blood pressure Cancer Atrial fibrillation Home Medications ?Medication ?Instructions ?Recorded ?Last Taken ?Type finasteride 5 mg tablet 5 mg PO DAILY 07/26/19 01/13/25 History lorazepam 0.5 mg tablet 0.5 mg PO DAILY PRN PRN Anxiety 07/26/19 Unknown History tamsulosin 0.4 mg capsule 0.4 mg PO QHS 07/26/19 01/13/25 History apixaban 5 mg tablet (Eliquis) 5 mg PO BID 11/17/24 01/09/25 History fluticasone furoate 100 1 inh inhalation QHS 11/17/24 Unknown History mcg-vilanterol 25 mcg/dose inhalation powder (Breo Ellipta) albuterol sulfate 90 mcg/actuation 1 - 2 puff inhalation Q4H PRN 01/09/25 Unknown History aerosol inhaler wheezing thiamine HCl (vitamin B1) 100 mg 100 mg PO QDAY 01/26/25 Unknown History tablet vitamin B complex 1 cap PO QDAY 01/26/25 Unknown History benzonatate 100 mg capsule 200 mg PO TID PRN PRN cough 02/27/25 Unknown History esomeprazole magnesium 40 mg 40 mg PO BID 02/27/25 Unknown History capsule,delayed release famotidine 40 mg tablet 40 mg PO QHS 02/27/25 Unknown History losartan 25 mg tablet 25 mg PO DAILY 02/27/25 Unknown History pazopanib 200 mg tablet 400 mg PO DAILY 02/27/25 Unknown History Allergy/AdvReac Type Severity Reaction Status Date / Time No Known Allergies Allergy Verified 02/27/25 14:47 Family History Father Alcoholism Brother Cancer Prostate Aunt Cancer Grandmother Dementia Surgical History (Updated 02/27/25 @ 15:17 by Jessica Willett) History of cardiac catheterization History of cardiac ablation for atrial fibrillation History of tonsillectomy and adenoidectomy History of repair of hiatal hernia History of esophagogastroduodenoscopy (EGD) Hx of colonoscopy History of surgery on arm Hx of vasectomy History of appendectomy Social History Smoking Status: Never smoker alcohol intake: current alcohol intake frequency: holidays/special occasions only Alcohol type: wine substance use type: does not use Audit: Pertinent Findings Pertinent Findings EKG Perinent findings: 02/06/2025. Sinus rhythm with premature supraventricular complexes. Left anterior fascicular block. 62 bpm. Stress test pertinent findings: 01/10/2022. Normal perfusion study. Normal size and function of left ventricle. Echo (EF%) pertinent findings: 02/10/2025. Normal size function EF 60%. Consult pertinent findings: Cardiology 2021. History of atrial fibrillation, heart murmur, aneurysm. Status post A-fib ablation procedure. No current further workup. Recommendation Anesthesia Recommendation Anesthesia recommendation: OPTIMIZED for anesthesia
[2025-03-11] VITALS (10 sets, daily range): BP systolic 117–150; BP diastolic 83–103; PULSE 76–161; RESP 12–94; TEMP 36.1–37.1; O2SAT 93–98; BMI 32.8
[2025-03-11] MEDS: Lactated Ringers 1,000 ML 15 ML IV (06:48)
--- NOTE | 2025-03-11 07:25 | PCM.PRE.AN2 ---
ASA Classification* ASA Classification ASA Classification: 3 Assessment & Plan Anesthesia* Anesthesia Assessment Anesthesia Assessment: Discussed sedation and/or anesthesia options, risks, benefits, and alternatives with patient/parents/legal guardian/POA. Questions invited. The patient/parents/legal guardian/POA seems to understand and agrees to proceed with anesthesia plan. Reviewed the physical assessment, medical history, allergy history and patient home medications list prior to surgery/procedure/anesthetic and documented any changes. Performed airway and anesthesia risk assessments. Anesthesia Type Anesthesia Type: General Anesthesia Focused Assessment* Temperature: 97.6 F Pulse Rate: 76 Blood Pressure: 150/91 Respiratory Rate: 16 Pulse Ox: 98 Airway Assessment Mouth opens: >3 cm Mallampati Score: II Labs Anesthesia Preop lab: CBC WBC, (4.4-11.0) 9.1 K/mm3 03/06/25, 09:57 RBC, (4.6-6.2) 3.92 M/mm3 L 03/06/25, 09:57 Hgb, (13.0-16.5) 11.4 g/dL L 03/06/25, 09:57 Hct, (40-54) 34.4 % L 03/06/25, 09:57 Plt Count, (150-450) 264 K/mm3 03/06/25, 09:57 CHEMISTRY Potassium, (3.3-5.1) 4.1 mmol/L 03/06/25, 09:57 Sodium, (133-145) 137 mmol/L 03/06/25, 09:57 Magnesium, (1.5-2.2) 1.9 mg/dL 03/05/25, 17:00 Phosphorus, (2.7-4.5) 2.8 mg/dL 03/05/25, 17:00 BUN, (4-19) 16 mg/dL 03/06/25, 09:57 Creatinine, (0.70-1.20) 0.87 mg/dL 03/06/25, 09:57 Glucose, (70-99) 253 mg/dL H 03/06/25, 09:57 TSH, (0.300-4.200) 0.901 uIU/mL 03/05/25, 17:00 COAG PT, (11.7-14.9) 18.1 SECONDS H 02/06/25, 09:49 Pre-Assessment Diagnosis/Proposed Procedure Planned Operative Procedure(s): .Cystoscopy, Resection Bladder Mass Anesthesia History Anesthesia History - hollock maker: Anesthesia History - hollock maker Hx Hospitalization Yes: [facility] 4 DAYS ADJUST 02/27/25 14:57 CANCER MED Any Problems With Anesthesia No 02/27/25 14:57 Cholinesterase deficiency No 02/27/25 14:57 You/Your Family Experience No 02/27/25 14:57 fever (hyperthermia) with Relationship Recent Exposure to Contagious No 03/11/25 06:37 Disease Does patient have nerve No 02/27/25 14:57 stimulator Patient instructed to have device shut off --Does patient have Pacemaker No 03/11/25 06:37 or ICD? When Was Last Pacemaker Check QUESTION #4 FULL TEXT: You/Your Family Experience fever (hyperthermia) with Anesthesia Last Oral Intake Last Oral intake: Last Oral Intake NPO since 05:30 03/11/25 06:37 Meds taken in AM with sips of Yes 03/11/25 06:37 water? Meds patient instructed to see mar 03/11/25 06:37 take am of surgery PONV PONV - hollock maker: PONV - hollock maker Female No 02/27/25 14:57 HX of Motion Sickness No 02/27/25 14:57 HX of N/V After Surgery No 02/27/25 14:57 Non-Smoker Yes 02/27/25 14:57 Duration of Surgery greater Yes 02/27/25 14:57 than 60 minutes Number of Risk Factors 2 02/27/25 14:57 PONV Score Moderate Risk 02/27/25 14:57 Height & Weight Height & Weight: Anesthesia: Height & Weight Height 6 ft 03/11/25 06:37 Weight: 109.769 kg 03/11/25 06:37 Body Mass Index (BMI) 32.8 03/11/25 06:37 Respiratory Assessment Respiratory Assessment - hollock maker: Respiratory Tract Infection Hx - hollock maker Hx Respiratory Tract Infection No 02/27/25 14:57 STOP Sleep Apnea STOP Sleep Apnea - hollock maker: STOP Sleep Apnea - hollock maker Hx Hypertension Yes 03/05/25 22:45 Hx Sleep Apnea Yes 03/05/25 22:45 CPAP Yes 03/05/25 22:45 BIPAP No 03/05/25 22:45 Do you snore loudly (louder than talking or can be heard Do you often feel tired/ fatigued/ sleepy during daytime? Has anyone observed you stop breathing during sleep? STOP Results Positive 02/27/25 14:57 QUESTION #5 FULL TEXT : Do you snore loudly (louder than talking or can be heard through closed doors)? 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 Specify any problems Hx of Preganancy in last 3 N/A 02/27/25 14:57 Months Nurse Filling Out Transfusion DSCHRIBER 02/27/25 14:57 & Questions: Date: 02/27/25 02/27/25 14:57 Time: 14:59 02/27/25 14:57 Patient unable to answer at this time (ie. confused, unrespo /Reproduction History /Reproductive History - hollock maker: /Reproductive Hx- hollock maker Hx Now No 02/27/25 14:57 Gestational Age (in weeks): EDC: Hx Hx Para Hx Section SAB No 02/27/25 14:57 Active Medications Active Medications: Current Medications Generic Name Dose Route Start Last Admin Trade Name Freq PRN Reason Stop Dose Admin Cefazolin Sodium 2 gm/ Sodium 110 mls @ 200 mls/hr 03/11/25 08:30 Chloride IV 03/11/25 09:02 INTRAOP ONE Lactated Ringer's 1,000 mls @ 15 mls/hr 03/11/25 06:30 03/11/25 06:48 IV 15 mls/hr .Q48H ZHANNA Administration PFSH Medical History History of Holter monitoring Encounter for education Metastatic sarcoma Wears hearing aid Wears partial dentures Wears glasses Alcohol use Back pain Radiation burn Gastric reflux Non-smoker Chronic cough Shortness of breath on exertion History of echocardiogram History of stress test Cardiology follow-up encounter Prostate cancer 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 Murmur, heart IBS (irritable bowel syndrome) High blood pressure Cancer Atrial fibrillation Home Medications ?Medication ?Instructions ?Recorded ?Last Taken ?Type finasteride 5 mg tablet 5 mg PO DAILY 07/26/19 01/13/25 History lorazepam 0.5 mg tablet 0.5 mg PO DAILY PRN PRN Anxiety 07/26/19 03/11/25 History tamsulosin 0.4 mg capsule 0.4 mg PO QHS 07/26/19 03/10/25 History fluticasone furoate 100 1 inh inhalation QHS 11/17/24 Unknown History mcg-vilanterol 25 mcg/dose inhalation powder (Breo Ellipta) albuterol sulfate 90 mcg/actuation 1 - 2 puff inhalation Q4H PRN 01/09/25 Unknown History aerosol inhaler wheezing thiamine HCl (vitamin B1) 100 mg 100 mg PO QDAY 01/26/25 Unknown History tablet vitamin B complex 1 cap PO QDAY 01/26/25 Unknown History benzonatate 100 mg capsule 200 mg PO TID PRN PRN cough 02/27/25 03/11/25 History esomeprazole magnesium 40 mg 40 mg PO BID 02/27/25 03/11/25 History capsule,delayed release famotidine 40 mg tablet 40 mg PO QHS 02/27/25 Unknown History losartan 25 mg tablet 25 mg PO DAILY 02/27/25 03/10/25 History pazopanib 200 mg tablet 400 mg PO DAILY 02/27/25 Unknown History Allergy/AdvReac Type Severity Reaction Status Date / Time No Known Allergies Allergy Verified 03/11/25 06:36 Family History Father Alcoholism Brother Cancer Prostate Aunt Cancer Grandmother Dementia Surgical History History of cardiac catheterization History of cardiac ablation for atrial fibrillation History of tonsillectomy and adenoidectomy History of repair of hiatal hernia History of esophagogastroduodenoscopy (EGD) Hx of colonoscopy History of surgery on arm Hx of vasectomy History of appendectomy Social History Smoking Status: Never smoker alcohol intake: current alcohol intake frequency: holidays/special occasions only Alcohol type: wine substance use type: does not use Review of Systems (Anesthesia) ROS Narrative System reviewed and no additional complaints, except as documented.
--- NOTE | 2025-03-11 08:30 | BLA_PTH ---
PATIENT: ANYA [facility] [place] [facility] [place][id number] AGE/SX: 74/M ROOM: RE03/11/[address]: Dr. Bj Momin MD : 1950 BED: DIS: 03/11/2025 SPEC #: [id number] RECD: 03/11/25 11:42 STATUS: WILBERT REQ #: [id number] ADITHYA: 03/11/25 08:[address]: Bj Momin DEPT: SURGICAL PATHOLOGY RECD BY: Javan Serna ENTERED: 03/11/25 15:55 SP TYPE: BLADDER BX OTHR DR: Dr. Caleb Mccurdy, DO Tissues: A - Urinary bladder, NOS Procedures: Immunohistochemical Stains Surgery Specimen Level V IHC Stain ADDITIONAL HEADER OPERATION: Cysto, transurethral resection of bladder PRE-OP DIAGNOSIS: Malignant neoplasm of bladder TISSUE SUBMITTED: A- Bladder tumor MICROSCOPIC DIAGNOSIS A. Bladder, transurethral resection bladder tumor: - Invasive adenocarcinoma consistent with metastatic prostate carcinoma. - IHC positive for NKX3.1 and PSAP; negative for uroplakin and MARISOL-3. MICROSCOPIC DESCRIPTION Slides are reviewed. All matched controls reacted appropriately. These tests were developed and their performance characteristics determined by [facility]. They may not have been cleared or approved by the U.S. Food and Drug Administration. The FDA has determined that such clearance or approval is not necessary. The above immunohistochemical markers and/or special?stains have been reviewed by the Pathologist. All controls show appropriate reactivity. (NKX3.1) All immunohistochemistry, in situ hybridization, and histochemical tests were developed by and are performed at the [facility], [address] [place] [address]. All Immunofluorescent (IF)?tests were developed by and are performed at the [facility], [address] [place] [address] ?[facility]. All tests reported here, except those addressing HER2 overexpression as a predictive marker, have not been cleared by or approved by the US Food and Drug Administration (FDA). The laboratory is regulated under CLIA as qualified to perform high-complexity testing. The tests are used for clinical purposes. They should not be regarded as investigational or for research. GROSS DESCRIPTION A. Received in formalin labeled with the patient's name and date of . Designated as bladder tumor is a 2.5 x 1.3 x 0.3 cm aggregate of pink-red to brown, irregular, cauterized tissue fragments. Entirely submitted in 1 cassette. CO 03/11/2025PT:[id number]
--- NOTE | 2025-03-11 08:49 | DCINST_ITS ---
Discharge Instructions
--- NOTE | 2025-03-11 08:49 | PCM.DC ---
Discharge Instructions DC O2, CPAP, BIPAP needs Home O2 Discharge instructions: No Dressing / Incision Discharge Activity: Return to Normal Activity and May Not Drive (while taking narcotic pain medications.) Dressing / Incision Call your doctor if you observe: Fever of 101 or Higher Follow Up Care Please Follow Up With: Bj Momin MD When: Call [phone] for an appointment Test Results: Test results from this visit will be discussed in further detail at your follow-up appointment, if applicable. Discharge Plan Admission Primary Reason for Your Visit: turbt Attending Provider: Bj Moimn Primary Care Provider: Caleb Mccurdy Instructions Print Language: Singaporean Discharge Orders/Prescriptions Prescriptions: Continued fluticasone furoate-vilanterol [Breo Ellipta] 100-25 mcg/dose blister with device 1 inh inhalation QHS thiamine HCl (vitamin B1) 100 mg tablet 100 mg PO QDAY vitamin B complex Capsule 1 cap PO QDAY lorazepam 0.5 MG tablet 0.5 mg PO DAILY PRN PRN (Reason: Anxiety) tamsulosin 0.4 MG capsule 0.4 mg PO QHS finasteride 5 MG tablet 5 mg PO DAILY albuterol sulfate 90 mcg/actuation HFA aerosol inhaler 1 - 2 puff INHALATION Q4H PRN (Reason: wheezing) losartan 25 mg tablet 25 mg PO DAILY pazopanib 200 mg tablet 400 mg PO DAILY famotidine 40 mg tablet 40 mg PO QHS benzonatate 100 mg capsule 200 mg PO TID PRN PRN (Reason: cough) esomeprazole magnesium 40 mg capsule,delayed release(DR/EC) 40 mg PO BID Held Eliquis 5 mg tablet 5 mg PO BID Hold Instructions: Resume on 03/18/25. Referrals / Follow Up: Bj Momin MD [Med Staff - Active Staff, Urology] Caleb Mccurdy DO [Primary Care Provider, Medical] Disposition Disposition (needs filled in before D/C Order can be placed): Home, Self Care
[2025-03-11] MEDS: Cefazolin 1 GM/5 ML Vial 2 GM IV (08:50)
[2025-03-11] MEDS: Lidocaine 1% (5 ml sdv) 5 ML Vial IV (08:54)
[2025-03-11] MEDS: fentaNYL 100 MCG/2 ML Ampul 150 MCG IV (09:11)
--- NOTE | 2025-03-11 09:25 | RAD_ITS ---
EXAM: RAD/O.R. Fluoro for C-Arm
--- NOTE | 2025-03-11 09:25 | OP.PCM_ITS ---
Operative Report (Standard)
--- NOTE | 2025-03-11 09:25 | PCM.OPRPT ---
Operative Report (Standard) Operative Information Date of Procedure: 03/11/25 Pre-Operative Diagnosis: Bladder mass and gross hematuria Post-Operative Diagnosis: The same with obstruction of the right ureteral orifice Surgery/Procedure Performed: Cystoscopy, resection of mass over right ureteral orifice 2cm mass, right stent placement, retrograde pyelogram paperhanger: No Type of Anesthesia: General RN Documented Start/Stop Times: Operation Date: 03/11/25 08:30 Case Time Into Pre-Op 03/11/25 06:26 Procedure Start Time: 09:02 Procedure Stop Time: 09:25 Select all DRAINS/GRAFTS/IMPLANTS that apply: Drains Drain details: Right stent Estimated Blood Loss: Minimal Specimen collected: No Description of surgery: This is a 74-year-old male who has advanced prostate cancer and has been having gross hematuria does have a history of treatment with radiation and cryotherapy for his prostate he has metastatic disease and today organ to do a cystoscopy to evaluate the source of the bleeding on CAT scan is a possible mass seen inside the bladder. Patient was taken back to the operating room after induction of anesthesia he was placed in dorsolithotomy position urethra and penis testicles were prepped and draped in usual sterile fashion went into the bladder with a 21 [place] rigid cystourethroscope entire length urethra was clear of any strictures or trauma prostate was intact verumontanum was identified prostate was short length minimal obstruction, then I went into the bladder after doing a dilation of the meatus with sounds one of the bladder with a resectoscope and I resected the mass over the right ureteral orifice we sent off these tissue for pathology specimen I then used a wire and after attempting to find ureteral orifice is able to put the wire up the right ureter and then over the wire I placed a stent and then used x-ray to confirm the location of the stent appeared to be in the right kidney. I drained the bladder I cauterized extensively around the area of the right side where the tumor was there was no active bleeding patient's bladder was drained anesthetic was reversed and currently being reversed from anesthesia. Surgical Findings: Mass overlying the right ureteral orifice was resected had some necrotic debris and tissue sent off stent placed in the right side Complications Complications: No Admit VTE Documentation VTE Present on Admission: No VTE Mechan Device Prophylaxis: SCD's VTE Pharm Prophylaxis ordered?: No
--- NOTE | 2025-03-11 09:45 | POSTOP.ANE_ITS ---
Anesthesia: Postop Eval I
--- NOTE | 2025-03-11 09:45 | PCM.POST.ANE ---
Anesthesia: Postop Eval I Current Vital Signs Temperature: 98.7 F Pulse Rate: 105 Blood Pressure: 136/92 Respiratory Rate: 18 Pulse Ox: 93 Oxygen Delivery Method: Room Air Assessment Airway patent: Yes Spontaneous unlabored respirations: Yes Mental status: Awake and Calm nausea: No Vomiting: No Anesthesia Complication: No Fluid Hydration Crystalloid volume administer (ml): 400 Total IV fluid infused: 400 Progress Note Anesthesia document: Postop Eval 1 completed: Yes
--- NOTE | 2025-03-11 10:13 | POSTOPAN2_ITS ---
Anesthesia Postop Eval I Sum
--- NOTE | 2025-03-11 10:13 | PCM.POSTANE2 ---
Anesthesia Postop Eval I Sum Postop Eval Completion status Anesthesia document: Postop Eval 1 completed: Yes Anesthesia Postop Eval I Summary Anesthesia Postop Eval I Summary: Anesthesia Postop Eval I: Assessment Summary Airway patent Yes 03/11/25 09:46 [email or web address] Spontaneous unlabored Yes 03/11/25 09:46 [email or web address] respirations Mental status Awake,Calm 03/11/25 09:46 [email or web address] nausea No 03/11/25 09:46 [email or web address] Vomiting No 03/11/25 09:46 [email or web address] Anesthesia Postop Eval I: Fluid Summary Crystalloid volume administer 400 03/11/25 09:46 [email or web address] (ml) Colloids volume administered ( ml) Blood Product volume administered (ml) Total IV fluid infused 400 03/11/25 09:46 [email or web address] Anesthesia Postop Eval I: Summary Notes Anesthesia Complication No 03/11/25 09:46 [email or web address] Anesthesia Complication Comment: Post-operative progress note Anesthesia: Postop Eval II Evaluation Mental status: Awake Pain Level: 0 nausea: No Vomiting: No
--- NOTE | 2025-03-11 11:31 | EKG12_ITS ---
Test Reason : postop
== END 2025-03-11 12:21 | disposition home or self-care (01) ==
LOC: SDC 06:15 → AC 06:16
PROVIDERS: Referring Provider Urology; Visit Provider Urology
PROC: 0TBB8ZZ Excision of Bladder, Via Natural or Artificial Opening Endoscopic (ICD-10-PCS; CPT 52332; principal; 2025-03-11 08:15)
DX: C67.6 Malignant neoplasm of ureteric orifice (principal); C79.9 Secondary malignant neoplasm of unspecified site; C61 Malignant neoplasm of prostate; N13.5 Crossing vessel and stricture of ureter without hydronephrosis; R31.0 Gross hematuria; Z79.01 Long term (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 anticoagulants; Z79.899 Other long term (current) drug therapy; D41.4 Neoplasm of uncertain behavior of bladder
CPT/HCPCS: 52332; 52341; 00910; 76000; 88305; 88307; 88341; 88342; 93005; C1769; C2617; J2405

== ENCOUNTER → 2025-04-13 | Outpatient (CLI) | payer MEDICARE, SELFPAY ==
[2025-04-13 10:40] LABS: Hematocrit 37.1 % (40-54); Hemoglobin 11.5 g/dL (13.0-16.5); Immature Granulocytes Count 0.020 X10^3/uL (0.0-0.0); Mean Corp Hgb Conc 31.0 g/dL (32-36); Mean Corpuscular Volume 95.6 fL (80-94); Mean Platelet Vol. 9.5 fl (6.2-12.0); NRBC Flagged by Analyzer 0 % (0-5); Platelet Count 399 K/mm3 (150-450); RBC Distribution Width CV 17.7 % (11.6-14.6); RBC Distribution Width SD 61.4 fl (35.1-43.9); Red Blood Count 3.88 M/mm3 (4.6-6.2); White Blood Count 6.1 K/mm3 (4.4-11.0)
[2025-04-13 11:15] LABS: AST(SGOT) 35 U/L (<=37); Alanine Aminotransfer ALT/SGPT 24 U/L (<=46); Albumin, Serum 3.5 g/dL (3.4-4.8); Alkaline Phosphatase 349 U/L (40-129); Anion Gap 11 (5-15); BUN 11 mg/dL (4-19); BUN/Creat Ratio 10.4 RATIO (10-20); Calcium,Total 9.3 mg/dL (7.6-11.0); Carbon Dioxide 27.5 mmol/L (21.0-32.0); Chloride 102 mmol/L (98-108); Globulin 2.9 g/dL (2.2-4.2); Glucose 101 mg/dL (70-99); Magnesium 2.1 mg/dL (1.5-2.2); Potassium 3.8 mmol/L (3.3-5.1)
[2025-04-13 11:28] LABS: PSA,Total - Annual Screen 1.19 ng/mL (0.02-4.00)
== END | disposition home or self-care (01) ==
LOC: LAB 08:37
PROVIDERS: Referring Provider Urology; Visit Provider Internal Medicine Hematology & Oncology
DX: C61 Malignant neoplasm of prostate (principal); C78.01 Secondary malignant neoplasm of right lung; C78.02 Secondary malignant neoplasm of left lung; C78.7 Secondary malignant neoplasm of liver and intrahepatic bile duct; C80.1 Malignant (primary) neoplasm, unspecified
CPT/HCPCS: 36415; 80053; 83735; 84100; 84153; 85025; G0103